=== PATIENT | female | born 1940 | race Caucasian/White ===

== ENCOUNTER 2018-10-07 13:29 | Emergency (ER) | payer OTHER, BC ==
[2018-10-07] MEDS ORDERED: IPRATROPIUM BROM 0.5MG/2.5ML ONE (14:36)
[2018-10-07] MEDS ORDERED: ALBUTEROL 2.5 MG/3 ML NEB SOL ONE (14:36)
--- NOTE | 2018-10-07 15:20 | RAD REPORT ---
EXAM DESCRIPTION: RAD - Chest Pa And Lat (2 Views) - 10/07/2018 2:26 pm CLINICAL HISTORY: Persistent cough COMPARISON: August 2016 TECHNIQUE: PA and lateral views of the chest were obtained. FINDINGS: The lungs are clear of a focal consolidation. There is underlying interstitial fibrotic ch karla present with lung markings fractionally increased over comparison. Severity of disease could mas k early interstitial edema or infiltrate. Heart size is normal and central vasculature is within no rmal limits. No pleural effusion or pneumothorax seen. No acute bony finding noted. No aortic abno rmality. IMPRESSION: No focal mass or consolidation. Prominent interstitial pattern increased slightly from an already prominent pattern. This could be pr ogressive fibrosis from 2017 or interstitial edema/infiltrate.
--- NOTE | 2018-10-07 16:12 | ER ---
Nurse's Notes [facility] Name: Aubrie Del Toro Age: 78 yrs Sex: Female : 1940 Arrival Date: 10/07/2018 Time: 13:29 Bed 13 Private MD: Eddie Solis V Diagnosis: Bronchitis, not specified as acute or chronic Presentation: 10/07 14:02 Presenting complaint: Patient states: cough for one week, not getting better, options ch thinks I have pneumonia. Transition of care: patient was not received from another setting of care. Onset of symptoms was September 30, 2018. Risk Assessment: Do you want to hurt yourself or someone else? Patient reports no desire to harm self or others. Initial Sepsis Screen: Does the patient meet any 2 criteria? No. Patient's initial sepsis screen is negative. Does the patient have a suspected source of infection? No. Patient's initial sepsis screen is negative. Care prior to arrival: None. 14:02 Method Of Arrival: Ambulatory 14:02 Acuity: [facility] 3 ch Triage Assessment: 14:04 General: Appears in no apparent distress. comfortable, Behavior is calm, cooperative, ch appropriate for age. Pain: Denies pain. Respiratory: Reports shortness of breath cough that is. Historical: - Allergies: 14:04 No Known Allergies; ch - PMHx: 14:04 Headaches; l eblow melanoma; neuropathy; bladder issues; ch - PSHx: 14:04 Tonsillectomy; Knee surgery; Hysterectomy; ch - Immunization history:: Adult Immunizations up to date, Flu vaccine is not up to date. - Social history:: Smoking status: Patient/guardian denies using tobacco, Patient/guardian denies using alcohol, street drugs. - Ebola Screening: : Patient negative for fever greater than or equal to 101.5 degrees Fahrenheit, and additional compatible Ebola Virus Disease symptoms Patient denies exposure to infectious person Patient denies travel to an Ebola-affected area in the 21 days before illness onset No symptoms or risks identified at this time. Screenin:05 Abuse screen: Denies threats or abuse. Nutritional screening: No deficits noted. rb1 Tuberculosis screening: No symptoms or risk factors identified. Fall Risk None identified. Assessment: 14:05 General: Appears uncomfortable, Behavior is calm, cooperative. Pain: Complains of pain rb1 in ribs Pain currently is 6 out of 10 on a pain scale. Aggravated by coughing. Neuro: Level of Consciousness is awake, alert, obeys commands, Oriented to person, place, time, situation. Cardiovascular: Capillary refill < 3 seconds is brisk in bilateral toes. Respiratory: Airway is patent Respiratory effort is even, unlabored, Respiratory pattern is regular, symmetrical. Respiratory: Reports cough that is dry. GI: No signs and/or symptoms were reported involving the gastrointestinal system. : No signs and/or symptoms were reported regarding the genitourinary system. Derm: Skin is pink, warm \T\ dry. Musculoskeletal: Range of motion: intact in all extremities. 14:25 Reassessment: Pt. is in x-ray. rb1 14:38 Reassessment: Called to request Flu swabs to be sent. rb1 15:00 Reassessment: Patient appears in no apparent distress at this time. Patient and/or rb1 family updated on plan of care and expected duration. Pain level reassessed. Patient is alert, oriented x 3, equal unlabored respirations, skin warm/dry/pink. Patient states symptoms have improved. 16:00 Reassessment: Patient appears in no apparent distress at this time. No changes from [facility] previously documented assessment. Daughter at bedside. Vital Signs: 14:04 BP 155 / 61; Pulse 58; Resp 18; Temp 98.4(O); Pulse Ox 97% on R/A; Weight 97.07 kg; ch Height 5 ft. 5 in. (165.10 cm); Pain 0/10; 15:00 BP 158 / 51; Pulse 57; Resp 18; Pulse Ox 96% on R/A; dh3 15:36 BP 152 / 44; Pulse 53; Resp 16; Pulse Ox 97% on R/A; dh3 16:00 BP 164 / 41; Pulse 51; Resp 17; Pulse Ox 95% on R/A; Pain 5/10; rb1 14:04 Body Mass Index 35.61 (97.07 kg, 165.10 cm) ED Course: 13:29 Patient arrived in ED. as 13:30 Eddie Solis MD is Private Physician. as 14:03 Triage completed. 14:04 Arm band placed on left wrist. Patient placed in an exam room. 14:05 Patient has correct armband on for positive identification. Bed in low position. Call rb1 light in reach. Side rails up X 1. Pulse ox on. NIBP on. 14:06 Therese Najera FNP-C is PHCP. kb 14:06 Brown Azul MD is Attending Physician. kb 14:22 Anastacia Ha, RN is Primary Nurse. rb1 14:25 Chest Pa And Lat (2 Views) XRAY In Process Unspecified. EDMS 16:10 Eddie Solis MD is Referral Physician. kb 16:26 No provider procedures requiring assistance completed. Patient did not have IV access rb1 during this emergency room visit. Administered Medications: 14:30 Drug: DuoNeb (3:1) (2.5 mg - 0.5 mg) 3 ml Route: Nebulizer; rb1 15:00 Follow up: Response: No adverse reaction; Marked relief of symptoms rb1 Outcome: 16:11 Discharge ordered by MD. kb 16:26 Discharged to home ambulatory, with family. rb1 16:26 Condition: stable 16:26 Discharge instructions given to patient, Instructed on discharge instructions, follow up and referral plans. medication usage, Demonstrated understanding of instructions, follow-up care, medications, Prescriptions given X 3. 16:28 Patient left the ED. rb1 Signatures: Dispatcher [employer] EDIL Therese Najera FNP-C FNP-Ckb Hammond, Christina, RN RN Marilyn Solano Rebecca, RN RN [facility] Divina Deshpande 3
--- NOTE | 2018-10-07 16:12 | EDPHYS ---
Physician Documentation [facility] Name: Aubrie Del Toro Age: 78 yrs Sex: Female : 1940 Arrival Date: 10/07/2018 Time: 13:29 Bed 13 Private MD: Eddie Solis V ED Physician Brown Azul HPI: 10/07 14:20 This 78 yrs old Female presents to ER via Ambulatory with complaints of kb Pneumonia. 14:20 The patient or guardian reports cough, that is intermittent, described as moderate, kb with no sputum, difficulty breathing. Onset: The symptoms/episode began/occurred 5 day(s) ago. Severity of symptoms: At their worst the symptoms were moderate, in the emergency department the symptoms are unchanged. Modifying factors: The symptoms are alleviated by nothing, the symptoms are aggravated by nothing. Associated signs and symptoms: The patient has no apparent associated signs or symptoms. The patient has not experienced similar symptoms in the past. The patient has been recently seen at an urgent care, just prior to arrival, for similar complaints, and was sent to the [facility] Emergency Department for further evaluation. Historical: - Allergies: 14:04 No Known Allergies; ch - PMHx: 14:04 Headaches; l eblow melanoma; neuropathy; bladder issues; ch - PSHx: 14:04 Tonsillectomy; Knee surgery; Hysterectomy; ch - Immunization history:: Adult Immunizations up to date, Flu vaccine is not up to date. - Social history:: Smoking status: Patient/guardian denies using tobacco, Patient/guardian denies using alcohol, street drugs. - Ebola Screening: : Patient negative for fever greater than or equal to 101.5 degrees Fahrenheit, and additional compatible Ebola Virus Disease symptoms Patient denies exposure to infectious person Patient denies travel to an Ebola-affected area in the 21 days before illness onset No symptoms or risks identified at this time. ROS: 14:19 Constitutional: Negative for fever, chills, and weight loss, Neck: Negative for injury, kb pain, and swelling, Cardiovascular: Negative for chest pain, palpitations, and edema, Abdomen/GI: Negative for abdominal pain, nausea, vomiting, diarrhea, and constipation, Back: Negative for injury and pain, MS/Extremity: Negative for injury and deformity, Skin: Negative for injury, rash, and discoloration, Neuro: Negative for headache, weakness, numbness, tingling, and seizure. 14:19 Respiratory: Positive for cough, shortness of breath, Negative for dyspnea on exertion, hemoptysis, orthopnea, pleurisy, wheezing. Exam: 14:19 Constitutional: This is a well developed, well nourished patient who is awake, alert, kb and in no acute distress. Head/Face: Normocephalic, atraumatic. ENT: Nares patent. No nasal discharge, no septal abnormalities noted. Tympanic membranes are normal and external auditory canals are clear. Oropharynx with no redness, swelling, or masses, exudates, or evidence of obstruction, uvula midline. Mucous membranes moist. Neck: Trachea midline, no thyromegaly or masses palpated, and no cervical lymphadenopathy. Supple, full range of motion without nuchal rigidity, or vertebral point tenderness. No Meningismus. Chest/axilla: Normal chest wall appearance and motion. Nontender with no deformity. No lesions are appreciated. Cardiovascular: Regular rate and rhythm with a normal S1 and S2. No gallops, murmurs, or rubs. Normal PMI, no JVD. No pulse deficits. Abdomen/GI: Soft, non-tender, with normal bowel sounds. No distension or tympany. No guarding or rebound. No evidence of tenderness throughout. Back: No spinal tenderness. No costovertebral tenderness. Full range of motion. Skin: Warm, dry with normal turgor. Normal color with no rashes, no lesions, and no evidence of cellulitis. MS/ Extremity: Pulses equal, no cyanosis. Neurovascular intact. Full, normal range of motion. Neuro: Awake and alert, GCS 15, oriented to person, place, time, and situation. Cranial nerves II-XII grossly intact. Motor strength 5/5 in all extremities. Sensory grossly intact. Cerebellar exam normal. Normal gait. 14:19 Respiratory: the patient does not display signs of respiratory distress, Respirations: normal, Breath sounds: wheezing: expiratory that is moderate, is scattered. Vital Signs: 14:04 BP 155 / 61; Pulse 58; Resp 18; Temp 98.4(O); Pulse Ox 97% on R/A; Weight 97.07 kg; ch Height 5 ft. 5 in. (165.10 cm); Pain 0/10; 15:00 BP 158 / 51; Pulse 57; Resp 18; Pulse Ox 96% on R/A; dh3 15:36 BP 152 / 44; Pulse 53; Resp 16; Pulse Ox 97% on R/A; dh3 16:00 BP 164 / 41; Pulse 51; Resp 17; Pulse Ox 95% on R/A; Pain 5/10; rb1 14:04 Body Mass Index 35.61 (97.07 kg, 165.10 cm) ch MDM: 14:06 Patient medically screened. kb 14:19 Data reviewed: vital signs, nurses notes. Data interpreted: Pulse oximetry: on room air kb is 97 %. Interpretation: normal. 16:09 Counseling: I had a detailed discussion with the patient and/or guardian regarding: the kb historical points, exam findings, and any diagnostic results supporting the discharge/admit diagnosis, lab results, radiology results, the need for outpatient follow up, a family practitioner, to return to the emergency department if symptoms worsen or persist or if there are any questions or concerns that arise at home. 10/07 14:06 Order name: Flu; Complete Time: 16:06 kb 10/07 14:06 Order name: Chest Pa And Lat (2 Views) XRAY; Complete Time: 15:23 kb Administered Medications: 14:30 Drug: DuoNeb (3:1) (2.5 mg - 0.5 mg) 3 ml Route: Nebulizer; rb1 15:00 Follow up: Response: No adverse reaction; Marked relief of symptoms rb1 Disposition: 10/07/18 16:11 Discharged to Home. Impression: Bronchitis, not specified as acute or chronic. - Condition is Stable. - Discharge Instructions: Acute Bronchitis, [id number]. - Prescriptions for Prednisone 20 mg Oral Tablet - take 1 tablet by ORAL route once daily for 5 days; 5 tablet. Zithromax Z- Virgil 250 mg Oral Tablet - take 1 tablet by ORAL route as directed for 5 days Day 1 - take two (2) tablets one time. Day 2, 3, 4 , 5 take one (1) tablet once daily.; 6 tablet. Albuterol Sulfate 90 mcg/actuation - inhale 1-2 puff by INHALATION route every 4-6 hours; 1 Inhaler. - Medication Reconciliation Form, Thank You Letter, Antibiotic Education, Prescription Opioid Use form. - Follow up: Emergency Department; When: As needed; Reason: Worsening of condition. Follow up: Eddie Solis MD; When: 2 - 3 days; Reason: Recheck today's complaints, Continuance of care, Re-evaluation by your physician. Addendum: 10/09/2018 09:24 Co-signature as Attending Physician, Brown Azul MD I agree with the assessment and c cunningham plan of care. Signatures: Dispatcher [employer] EDWV Therese Najera, COMPUTER TYPESETTER KEYLINER-C COMPUTER TYPESETTER KEYLINER-Rachelle Sutton, RN RN Brown Lawler MD MD cha Barber, Rebecca, RN RN rb1 Corrections: (The following items were deleted from the chart) 10/07 16:28 16:11 10/07/2018 16:11 Discharged to Home. Impression: Bronchitis, not specified as rb1 acute or chronic. Condition is Stable. Forms are Medication Reconciliation Form, Thank You Letter, Antibiotic Education, Prescription Opioid Use. Follow up: Emergency Department; When: As needed; Reason: Worsening of condition. Follow up: Eddie Solis; When: 2 - 3 days; Reason: Recheck today's complaints, Continuance of care, Re-evaluation by your physician. kb
[2018-10-07 16:32] VITALS: TEMP 98.4
[2018-10-07 16:35] VITALS: BP 164/41; O2SAT 95
== END 2018-10-07 16:28 | disposition home or self-care (01) ==
LOC: ER 13:29
DX: J40 Bronchitis, not specified as acute or chronic (principal)
CPT/HCPCS: 71046; 87804; 94640; 99284

== ENCOUNTER 2021-01-01 13:21 | Inpatient (IN) | payer OTHER, BC ==
--- OUTSIDE RECORDS SUMMARY | 2021-01-01 13:24 | XMS REPORT | Continuity of Care Document ---
:1940 Author Organization [facility] t Address [address] [place] [address] Care Team Providers Name Role Phone Tc LINN Primary Care Physician Unavailable SYSTEM, NOT IN Attending Clinician Unavailable IVANA Attending Clinician Unavailable Payers Payer Name Policy Type Policy Number Effective Date Expiration Date S ource [place] P[place] POS [id number] 2014 00:00:00 MEDICARE PART A [id number] 2004 AND B 00:00:00 Problems This patient has no known problems. Allergies, Adverse Reactions, Alerts Allergy Allergy Status Severity Reaction(s) Onset Inactive Treating Comm ents Source Name Type Date Date Clinician No Known DA Active U [facility] Allergie 3-29 Clear s 00:00: Collins 00 [facility] No Known DA Active U [facility] Drug 7-13 Clear Allergie 00:00: Collins s 00 [facility] Medications This patient has no known medications. Procedures This patient has no known procedures. Encounters Start End Encounter Admission Attending Care Care Encounter Source Date/Time Date/Time Type Type Clinicians Facility Department ID 2020-10-13 Outpatient TAYA CASH MDA [id number] 13:14:56 ADRIAN tidwell 2019-07-30 Outpatient [facility] 7500 12:25:32 [facility] 2020-10-03 2020-10-08 Outpatient JORDAN HEATH MDA MDA [id number] 09:19:28 08:21:37 THELMA tidwell 2020-10-03 2020-10-03 Outpatient JORDAN HEATH MDA [facility] [id number] 08:59:38 23:59:00 THELMA tidwell Results Test Description Test Time Test Comments Results Result Comments Source Novel Coronavirus 2018 Inhouse 2020-11-22 04:35:00 Test Item Value Reference Range Interpretation Comme nts Novel Coronavirus 2018 Negative Negative Posit [place] results are indicative of the Inhouse (test code = presenc e [id number] RNA, clinical COVNONPUI) correlation wit h patient historyand other diagnosti c information is necessary to de terminepatient infection status. Positiv e results do not rule outbacterial in fection or co-infection with other viru ses. Negative results do not preclude SA RS-CoV-2 infection andshould not b e used as the sole basis for patient man agementdecisions. Negative result s must be combined with otherclinical o bservations, patient history, and ep idemiologicalinformation. Detection of SA RS-CoV-2 RNA may be affected bysamp le collection methods, storage conditi ons, and/or stageof infection. Aletha l RNA mutations, vaccinations, a ntiviraltherapeutics, antibiotics, ch emotherapeutic orimmunosuppres shimon drugs have not been evaluated for e ffectson detection. Results are for the identification of SARS-CoV-2 RNA usingthe 12Society000 System under th e FDA Emergency UseAuthorizatio n. The testing is performed by lynnette lindrained in the procedures for the Lui M2000 moleculardiagno stic SARS-CoV-2 assay in vitro. BASIC METABOLIC [id number] 16:24:00 Test Item Value Reference Range Interpretation Comments SODIUM (test code = NA) 146 mEq/L 134-147 N POTASSIUM (test code = 4.3 mEq/L 3.4-5.0 N K) CHLORIDE (test code = 106 mEq/L 100-108 N CL) CARBON DIOXIDE (test 35 mEq/l 21-33 H code = CO2) ANION GAP (test code = 10 0-20 N GAP) GLUCOSE (test code = 85 mg/dL 70-110 N GLU) BLOOD UREA NITROGEN 21 mg/dL 7-18 H (test code = BUN) GLOMERULAR FILTRATION 43.1 70-80 L Units of measure = RATE (test code = GFR) ml/mi n/1.73 m2 CREATININE (test code = 1.2 mg/dL 0.6-1.3 N CREAT) CALCIUM (test code = 10.0 mg/dL 8.0-10.5 N CA) PROTHROMBIN [id number] 16:12:00 Test Item Value Reference Range Interpretation Comments PROTHROMBIN TIME 25.1 SECONDS 9.3-12.9 H PATIENT (test code = PTP) INTERNATIONAL NORMAL 2.3 0.8-1.2 H TARGET RATIO (test code = INR BY IN DICATION INR) Indication INR1. Prophyl axis of venous thrombos is 2.0 - 3. 0 (orthopedic kael emmie), Prophylaxis of venous thrombos is (other than hig h-risk surgery), Purnima tment of Deep Vein Thrombosis/Pulm onary Embolism, Preve ntion of systemic emb olism - Tissue heart va lves, Acute Myocardia l Infarction (to prevent systemic embo lism), Valvular heart disease, Atri al Fibrillation, Bileaflet mecha nical valve in aortic position.2. Mec hanical prosthetic valv es (high risk), 2.5 - 3.5 Presence of Lupus Anticoagu lant or Antiphospholi pid Antibodies, Pre vention of systemic e mbolism - Acute Myocard ial Infarction (t o prevent recurre nt infarct). CBC W/AUTO [id number] 16:05:00 Test Item Value Reference Range Interpretation Comments WHITE BLOOD CELL (test code = 9.8 x10 3/uL 4.5-11.0 N WBC) RED BLOOD CELL (test code = 3.46 x10 6/uL 3.54-5.02 L RBC) HEMOGLOBIN (test code = HGB) 10.7 g/dL 11.0-15.0 L HEMATOCRIT (test code = HCT) 34.6 % 33.0-45.0 N MEAN CELL VOLUME (test code = 100.0 fL 81.0-99.0 H MCV) MEAN CELL HGB (test code = MCH) 30.9 pg 27.0-33.0 N MEAN CELL HGB CONCETRATION 30.9 g/dL 33.0-37.0 L (test code = MCHC) RED CELL DISTRIBUTION WIDTH CV 13.8 % 11.5-14.5 N (test code = RDW) RED CELL DISTRIBUTION WIDTH SD 50.1 fL 37.0-54.0 N (test code = RDW-SD) PLATELET COUNT (test code = 169 x10 3/uL 150-400 N PLT) MEAN PLATELET VOLUME (test code 10.8 fL 7.0-9.0 H = MPV) NEUTROPHIL % (test code = NT%) 74.1 % 56.0-77.0 N IMMATURE GRANULOCYTE % (test 0.7 % 0.0-2.0 N code = IG%) LYMPHOCYTE % (test code = LY%) 12.7 % 14.0-32.0 L MONOCYTE % (test code = MO%) 7.0 % 4.8-9.0 N EOSINOPHIL % (test code = EO%) 5.0 % 0.3-3.7 H BASOPHIL % (test code = BA%) 0.5 % 0.0-2.0 N NUCLEATED RBC % (test code = 0.0 % 0-0 N NRBC%) NEUTROPHIL # (test code = NT#) 7.28 x10 3/uL 2.0-7.6 N IMMATURE GRANULOCYTE # (test 0.07 x10 3/uL 0.00-0.03 H code = IG#) LYMPHOCYTE # (test code = LY#) 1.25 x10 3/uL 1.0-3.8 N MONOCYTE # (test code = MO#) 0.69 x10 3/uL 0.1-0.8 N EOSINOPHIL # (test code = EO#) 0.49 x10 3/uL 0.0-0.2 H BASOPHIL # (test code = BA#) 0.05 x10 3/uL 0.0-0.2 N NUCLEATED RBC # (test code = 0.00 x10 3/uL 0.0-0.1 N NRBC#) MANUAL DIFF REQUIRED (test code NO = MDIFF) CBC W/AUTO [id number] 16:02:00 Test Item Value Reference Range Interpretation Comments WHITE BLOOD CELL (test code = x10 3/uL 4.5-11.0 WBC) RED BLOOD CELL (test code = RBC) x10 6/uL 3.54-5.02 HEMOGLOBIN (test code = HGB) g/dL 11.0-15.0 HEMATOCRIT (test code = HCT) 34.6 % 33.0-45.0 N MEAN CELL VOLUME (test code = fL 81.0-99.0 MCV) MEAN CELL HGB (test code = MCH) pg 27.0-33.0 MEAN CELL HGB CONCETRATION (test g/dL 33.0-37.0 code = MCHC) RED CELL DISTRIBUTION WIDTH CV % 11.5-14.5 (test code = RDW) PLATELET COUNT (test code = PLT) 169 x10 3/uL 150-400 N NEUTROPHIL % (test code = NT%) % 56.0-77.0 LYMPHOCYTE % (test code = LY%) % 14.0-32.0 NEUTROPHIL # (test code = NT#) x10 3/uL 2.0-7.6 LYMPHOCYTE # (test code = LY#) x10 3/uL 1.0-3.8 MANUAL DIFF REQUIRED (test code = MDIFF) - XR CHEST 1 [id number] 16:30:00 [facility] [place] [place] : 1940 Sex: F FAX: Eagle Sexton MD [phone] [place]: St: [facility] FAX: Ysabel Navarro NP [phone] Name: GRACIELA GARCIA [facility] : 1940 Age/S: 80/F [address] [place] [address] Blvd Unit #: [id number] Loc: [place] [address] Phys: Ysabel Santacruz NP Acct: [id number] Dis Date: Status: REG [facility] PHONE #: [phone] Exam Date: 10/29/2020 1514 FAX #: [phone] Reason: post watchman EXAMS: CPT CODE: [id number] XR CHEST 1 V 10925 EXAM: XR CHEST 1 VIEW DATE: 10/29/2020 3:00 PM : 1940; Age: 80 years y/o Female INDICATION: post watchman COMPARISON: December 27, 2020 TECHNIQUE: AP chest. IMPRESSION: Lines, tubes and hardware: Right shoulder arthroplasty is partially seen. Left axillary clips. Atrial appendage closure deviceis seen. Heart, mediastinum and lungs: Cardiomegaly with mild central venous congestion is seen. Small layering left pleural effusion with underlying airspace disease. Atherosclerotic changes are seen involving the aorta. SL: [id number] at 1630 Reported and signed by: Petra Rivera D.O. 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 Positiv e results do not rule out bacterial infection or co -infection with other viru ses. Negative result s do not preclude SARS-C oV-2 infection andsh ould not be used as the shae e basis for patient managementdecis ions. Negative result s must be combined with otherclinical observations, p atient history, and epidemiological information . Detection of SARS-CoV-2 RNA may be affe cted bysample collec tion methods, storag e conditions, and /or stageof infection. Aletha l RNA mutations, vacc inations, antiviraltherap eutics, antibiotics, chemotherapeuti c orimmunosuppres shimon drugs have not been e valuated for effectson d etection. Results are for the identification of SARS-CoV-2 RNA usingthe Lui M2000 Sy stem under the FDA Emergen cy UseAuthorizatio n. The testing is perf ormed by ebn alejandre in the procedures for the Audingo M2000 molecular diagnostic SARS-CoV-2 renata champion in vitro. - XR CHEST 2 [id number] 14:55:00 [facility] : 1940 Sex: F FAX: Eagle Sexton MD [phone] [place]: [place] [address]: PRE Name: GRACIELA GARCIA [facility] : 1940 Age/S: 80/F [address] [place] [address] Blvd Unit #: [id number] Loc: [place] [address] Phys: Eagle Osborn MD Acct: [id number] Dis Date: Status: PRE SD PHONE #: [phone] Exam Date: 10/27/2020 1424 FAX #: [phone] Reason: PRE-OP WATCHMAN EXAMS: CPT CODE: [id number] XR CHEST 2 V [id number] EXAM: PA and lateral chest. EXAM DATE: October 27, 2020 CLINICAL HISTORY: PRE-OP WATCHMAN COMPARISON: None Heart is prominent but difficult to assess secondary to moderate left-sided pleural effusion. The right lung is unremarkable.. The left upper lung is unremarkable.Orthopedic hardware noted in the right proximal humerus. Surgical clips identified in the leftaxillary region. IMPRESSION: Moderate left-sided pleural effusion. at 8226 Reported and signed by: Jesi Garcia M.D. CC: Ealge Osborn MD Technologist: RT Suad(R) Trnscrd Date/Time/By: 10/27/2020 (1777) : By: Kenneth Orig Print D/T: S: 10/27/2020 (5204) PAGE 1 Signed ReportBASIC METABOLIC PANEL 2020-10-27 14:35:00 Test Item Value Reference Range Interpretation Comments SODIUM (test code = NA) 143 mEq/L 134-147 N POTASSIUM (test code = 3.8 mEq/L 3.4-5.0 N K) CHLORIDE (test code = 104 mEq/L 100-108 N CL) CARBON DIOXIDE (test 32 mEq/l 21-33 N code = CO2) ANION GAP (test code = 11 0-20 N GAP) GLUCOSE (test code = 83 mg/dL 70-110 N GLU) BLOOD UREA NITROGEN 18 mg/dL 7-18 N (test code = BUN) GLOMERULAR FILTRATION 43.1 70-80 L Units of measure = RATE (test code = GFR) ml/mi n/1.73 m2 CREATININE (test code = 1.2 mg/dL 0.6-1.3 N CREAT) CALCIUM (test code = 9.3 mg/dL 8.0-10.5 N CA) [id number] 14:35:00 Test Item Value Reference Range Interpretation Comments PREALBUMIN (test code = PREALB) 18.9 mg/dL 16.0-40.0 N PROTHROMBIN [id number] 14:34:00 Test Item Value Reference Range Interpretation Comments PROTHROMBIN TIME 30.6 SECONDS 9.3-12.9 H PATIENT (test code = PTP) INTERNATIONAL NORMAL 2.8 0.8-1.2 H TARGET RATIO (test code = INR BY IN DICATION INR) Indication INR1. Prophyl axis of venous thrombos is 2.0 - 3. 0 (orthopedic kael emmie), Prophylaxis of venous thrombos is (other than hig h-risk surgery), Purnima tment of Deep Vein Thrombosis/Pulm onary Embolism, Preve ntion of systemic emb olism - Tissue heart va lves, Acute Myocardia l Infarction (to prevent systemic embo lism), Valvular heart disease, Atri al Fibrillation, Bileaflet mecha nical valve in aortic position.2. Mec hanical prosthetic valv es (high risk), 2.5 - 3.5 Presence of Lupus Anticoagu lant or Antiphospholi pid Antibodies, Pre vention of systemic e mbolism - Acute Myocard ial Infarction (t o prevent recurre nt infarct). CBC W/AUTO [id number] 14:19:00 Test Item Value Reference Range Interpretation Comments WHITE BLOOD CELL (test code = WBC) x10 3/uL 4.5-11.0 RED BLOOD CELL (test code = RBC) x10 6/uL 3.54-5.02 HEMOGLOBIN (test code = HGB) g/dL 11.0-15.0 HEMATOCRIT (test code = HCT) 33.3 % 33.0-45.0 N MEAN CELL VOLUME (test code = MCV) fL 81.0-99.0 MEAN CELL HGB (test code = MCH) pg 27.0-33.0 MEAN CELL HGB CONCETRATION (test g/dL 33.0-37.0 code = MCHC) RED CELL DISTRIBUTION WIDTH CV % 11.5-14.5 (test code = RDW) PLATELET COUNT (test code = PLT) x10 3/uL 150-400 NEUTROPHIL % (test code = NT%) % 56.0-77.0 LYMPHOCYTE % (test code = LY%) % 14.0-32.0 NEUTROPHIL # (test code = NT#) x10 3/uL 2.0-7.6 LYMPHOCYTE # (test code = LY#) x10 3/uL 1.0-3.8 MANUAL DIFF REQUIRED (test code = MDIFF) CBC W/AUTO [id number] 14:19:00 Test Item Value Reference Range Interpretation Comments WHITE BLOOD CELL (test code = 9.3 x10 3/uL 4.5-11.0 N WBC) RED BLOOD CELL (test code = 3.43 x10 6/uL 3.54-5.02 L RBC) HEMOGLOBIN (test code = HGB) 10.8 g/dL 11.0-15.0 L HEMATOCRIT (test code = HCT) 33.3 % 33.0-45.0 N MEAN CELL VOLUME (test code = 97.1 fL 81.0-99.0 N MCV) MEAN CELL HGB (test code = MCH) 31.5 pg 27.0-33.0 N MEAN CELL HGB CONCETRATION 32.4 g/dL 33.0-37.0 L (test code = MCHC) RED CELL DISTRIBUTION WIDTH CV 14.2 % 11.5-14.5 N (test code = RDW) RED CELL DISTRIBUTION WIDTH SD 49.7 fL 37.0-54.0 N (test code = RDW-SD) PLATELET COUNT (test code = 131 x10 3/uL 150-400 L PLT) MEAN PLATELET VOLUME (test code 11.0 fL 7.0-9.0 H = MPV) NEUTROPHIL % (test code = NT%) 72.6 % 56.0-77.0 N IMMATURE GRANULOCYTE % (test 0.3 % 0.0-2.0 N code = IG%) LYMPHOCYTE % (test code = LY%) 11.6 % 14.0-32.0 L MONOCYTE % (test code = MO%) 6.3 % 4.8-9.0 N EOSINOPHIL % (test code = EO%) 8.7 % 0.3-3.7 H BASOPHIL % (test code = BA%) 0.5 % 0.0-2.0 N NUCLEATED RBC % (test code = 0.0 % 0-0 N NRBC%) NEUTROPHIL # (test code = NT#) 6.73 x10 3/uL 2.0-7.6 N IMMATURE GRANULOCYTE # (test 0.03 x10 3/uL 0.00-0.03 N code = IG#) LYMPHOCYTE # (test code = LY#) 1.08 x10 3/uL 1.0-3.8 N MONOCYTE # (test code = MO#) 0.58 x10 3/uL 0.1-0.8 N EOSINOPHIL # (test code = EO#) 0.81 x10 3/uL 0.0-0.2 H BASOPHIL # (test code = BA#) 0.05 x10 3/uL 0.0-0.2 N NUCLEATED RBC # (test code = 0.00 x10 3/uL 0.0-0.1 N NRBC#) MANUAL DIFF REQUIRED (test code NO = MDIFF) BASIC METABOLIC [id number] 07:01:00 Test Item Value Reference Range Interpretation Comments SODIUM (test code = 140 mmol/L 136-145 N NA) POTASSIUM (test code 4.5 mmol/L 3.5-5.1 N = K) CHLORIDE (test code = 102.0 mmol/L 98-107 N CL) CARBON DIOXIDE (test 29.6 mmol/L 21-32 N code = CO2) GLUCOSE (test code = 156 mg/dL 70-110 H GLU) BLOOD UREA NITROGEN 62 mg/dL 7-18 HH VERIFIED BY REPEAT (test code = BUN) ANALYSIS.C RITICAL VALUE CALLED TO ANDRÉS SOTOMAYOR/MARGARET GUERRAREAD BACK & CONFIRMED? YBY Y.LAB.MAV 02/07 0701 GLOMERULAR FILTRATION 28.4 >60 Unit o f measure: RATE (test code = mL/min/1.7 3 GFR) [id number] Range:Healthy A dults >90 mL/min/1.73 m2 For Chronic Kidney Disease: St age II Mild Dec rease in GFR 6 0-90 Stage III Moderate Decrea se in GFR 30-59 Stage IV Se floyd Decrease in GFR 15-29 Stage V Kidney Failur e <15 CREATININE (test code 1.73 mg/dL 0.55-1.30 H = CREAT) CALCIUM (test code = 8.2 mg/dL 8.2-10.1 N CA) HGB [id number] 05:43:00 Test Item Value Reference Range Interpretation Comments HEMOGLOBIN (test code = HGB) 9.0 g/dL 12-16 L HEMATOCRIT (test code = HCT) 27.7 % 37-47 L URINALYSIS [id number] 14:52:00 Test Item Value Reference Range Interpretation Comments UA COLOR (test code = YELLOW YELLOW COLU) UA APPEARANCE (test CLEAR CLEAR code = APPU) UA GLUCOSE DIPSTICK NEGATIVE NEGATIVE (test code = DGLUU) UA BILIRUBIN DIPSTICK NEGATIVE NEGATIVE (test code = BILU) UA KETONE DIPSTICK NEGATIVE mg/dL NEG (test code = KETU) UA SPECIFIC GRAVITY 1.010 1.003-1.035 (test code = SGU) UA BLOOD DIPSTICK NEGATIVE NEGATIVE (test code = ARNIE) UA PH DIPSTICK (test >6.5 >=9.0VE RIFIED BY code = LOCO) REPEAT ANALYSIS . UA PROTEIN DIPSTICK NEGATIVE mg/dL NEG (test code = PROU) UA UROBILINIOGEN 0.2 mg/dL NORM DIPSTICK (test code = URO) UA NITRITE DIPSTICK NEGATIVE NEG (test code = ZORA) UA LEUKOCYTE ESTERASE NEGATIVE NEGATIVE DIPSTICK (test code = LEUU) UA WBC (test code = <5 /HPF 0-2 WBCU) UA RBC (test code = 0-2 /HPF 0-2 RBCU) UA EPITHELIAL CELLS RARE /HPF 0-2 (test code = EPIU) UA BACTERIA (test code FEW /HPF NONE = BACU) COMPREHENSIVE METABOLIC [id number] 13:30:00 Test Item Value Reference Range Interpretation Comments SODIUM (test code = 140 mmol/L 136-145 N NA) POTASSIUM (test code = 5.0 mmol/L 3.5-5.1 N K) CHLORIDE (test code = 101.0 mmol/L 98-107 N CL) CARBON DIOXIDE (test 33.8 mmol/L 21-32 H code = CO2) GLUCOSE (test code = 85 mg/dL 70-110 N GLU) BLOOD UREA NITROGEN 32 mg/dL 7-18 H (test code = BUN) GLOMERULAR FILTRATION 27.7 >60 Unit o f measure: RATE (test code = GFR) mL/mi n/1.73 [id number] Range:Healthy Adults >90 mL/min/1.73 m2 For Chronic Kidney Disease: St age II Mild Decrease in GFR 60-90 St age III Moderate Decrease in GFR 30-59 Stage IV Severe Decre ase in GFR 15- 29 Stage V Kidney Failure <15 CREATININE (test code 1.77 mg/dL 0.55-1.30 H = CREAT) TOTAL PROTEIN (test 6.2 g/dL 6.4-8.2 L code = PROT) ALBUMIN (test code = 3.7 g/dL 3.4-5.0 N ALB) GLOBULIN (test code = 2.5 g/dL 2.2-4.2 N GLOB) ALBUMIN/GLOBULIN RATIO 1.5 0.7-2.0 N (test code = A/G) CALCIUM (test code = 8.9 mg/dL 8.2-10.1 N CA) BILIRUBIN TOTAL (test 0.59 mg/dL 0.2-1.00 N code = BILT) SGOT/AST (test code = 16.0 U/L 15-37 N AST) SGPT/ALT (test code = 19.0 U/L 12-78 N Please note new ALT) normal range. ALKALINE PHOSPHATASE 100 U/L 46-116 N TOTAL (test code = ALKP) PROTHROMBIN [id number] 13:30:00 Test Item Value Reference Range Interpretation Comments PROTHROMBIN TIME 13.2 secs 10.1-12.5 H PATIENT (test code = PTP) INTERNATIONAL NORMAL 1.17 <2.0 RECOMME NDED THERAPEUTIC RATIO (test code = RANGE FOR ORAL INR) ANTICOAGULANTTR EATMENT: CONDI TION INRProphylaxis of venous thrombos is in 2.0 - 3.0 high-risk medic al or surgical patientsTreatme nt of venous thrombos is 2.0 - 3.0Prevention o f embolism 2.0 - 3.0Prevention o f recurrent embol ism, or 3.0 - 4. 5 patients with mechanical pros thetic intravascular v hoang IS PATIENT ON ANTICOAGULANTS ? YLIST ANTICOAGULANT/ANTI PLT MEDICATION : AspirinHas Lab been notified if Patient is on Heparin Drip? NOIf Yes, order CBC, OCCULT BLOOD, PT every other day NTHROMBOPLASTIN TIME [id number] 13:30:00 Test Item Value Reference Range Interpretation Comments PTT ACTIVATED (test code = APTT) 34.3 secs 24.9-37.0 N IS PATIENT ON ANTICOAGULANTS ? YLIST ANTICOAGULANT/ANTI PLT MEDICATION : AspirinHas Lab been notified if Patient is on Heparin Drip? NOIf Yes, order CBC, OCCULT BLOOD, PT every other day NCBC W/AUTO [id number] 13:12:00 Test Item Value Reference Range Interpretation Comments WHITE BLOOD CELL (test code = WBC) 6.1 K/mm3 5.8-11.0 N RED BLOOD CELL (test code = RBC) 3.85 M/mm3 4.2-5.4 L HEMOGLOBIN (test code = HGB) 10.7 g/dL 12-16 L HEMATOCRIT (test code = HCT) 33.6 % 37-47 L MEAN CELL VOLUME (test code = MCV) 87 fL 80-98 N MEAN CELL HGB (test code = MCH) 27.8 pg 27-34 N MEAN CELL HGB CONCENTRATION (test 31.8 g/dL 30.8-34.1 N code = MCHC) RED CELL DISTRIBUTION WIDTH (test 14.6 % 11-16 N code = RDW) PLT (test code = PLT) 187 K/mm3 130-400 N MEAN PLATELET VOLUME (test code = 11.4 fL 8.9-12.1 N MPV) NEUTROPHIL % (test code = NT%) 64.9 % 45-70 N LYMPHOCYTE % (test code = LY%) 21.7 % 20-40 N MONOCYTE % (test code = MO%) 10.3 % 3-10 H EOSINOPHIL % (test code = EO%) 2.6 % 1-5 N BASOPHIL % (test code = BA%) 0.5 % 0.0-1.1 N NEUTROPHIL # (test code = NT#) 3.98 K/mm3 2.00-7.50 N LYMPHOCYTE # (test code = LY#) 1.33 K/mm3 1.50-4.00 L MONOCYTE # (test code = MO#) 0.63 K/mm3 0.2-0.8 N EOSINOPHIL # (test code = EO#) 0.16 K/mm3 0.04-0.4 N BASOPHIL # (test code = BA#) 0.03 K/mm3 0.02-0.10 N MANUAL DIFF REQUIRED (test code = NO MANUAL DIFF MDIFF) NUCLEATED RED BLOOD CELL (test 0 % 0-0 N code = NRBC)
[2021-01-01 14:09] LABS: Absolute Lymphocytes (CBC) 0.7 K/uL (0.7-4.9); Basophils % 0.5 % (0-1.3); Hematocrit 32.2 % (36.0-45.0); Lymphocytes % 8.6 % (15.3-44.8); MPV 10.4 fL (7.6-11.3); RBC Red Blood Cell Count 3.52 M/uL (3.86-4.86)
[2021-01-01 14:26] LABS: Protime INR 1.16
[2021-01-01 14:32] LABS: ALT/SGPT 18 U/L (12-78); AST/SGOT 15 U/L (15-37); Albumin 3.4 g/dL (3.4-5.0); Alkaline Phosphatase 119 U/L (45-117); BUN Blood Urea Nitrogen 35 mg/dL (7-18); Bicarbonate 31 mmol/L (21-32); Bilirubin Direct 0.2 mg/dL (0-0.2); Bilirubin Total 0.6 mg/dL (0.2-1.0); Glucose Level 90 mg/dL (74-106); Magnesium 2.5 mg/dL (1.8-2.4); NT PRO-BNP 8798 pg/mL (<450); Protein, Total 6.6 g/dL (6.4-8.2); Sodium Level 142 mmol/L (136-145); Troponin (Emerg Dept Use Only) < 0.02 ng/mL (0.0-0.045)
--- NOTE | 2021-01-01 14:43 | RAD REPORT ---
EXAM DESCRIPTION: RAD - Chest Single View - 01/01/2021 2:24 pm CLINICAL HISTORY: SOB Chest pain. COMPARISON: Chest Pa And Lat (2 Views) dated 10/07/2018; Abdomen 1 View (KUB) dated 10/18/2016; Chest P a And Lat (2 Views) dated 08/10/2016; Abdomen 1 View (KUB) dated 08/10/2016; 3D SCR YSABEL BILAT W/CAD mariza ed 01/15/2020; Follow Up Breast Axilla Comp dated 02/07/2020 FINDINGS: Portable technique limits examination quality. Mild interstitial pulmonary edema is seen. Moderate left pleural effusion. Moderate left pleural effu kulwinder.Right humeral arthroplasty. IMPRESSION: Moderate CHF pattern.
[2021-01-01] MEDS ORDERED: FUROSEMIDE 40 MG/4 ML VIAL ONE (15:27)
--- NOTE | 2021-01-01 15:44 | EDPHYS ---
Physician Documentation [facility] Name: Aubrie Del Toro Age: 80 yrs Sex: Female : 1940 Arrival Date: 01/01/2021 Time: 13:23 Bed 19 Private MD: Eddie Solis V; Raslan, Saleem ED Physician Naldo Belcher HPI: 01/01 13:50 This 80 yrs old Female presents to ER via Wheelchair with complaints of cp Shortness Of Breath, afib. 13:50 The patient has shortness of breath with light activity. Onset: The symptoms/episode cp began/occurred 2 week(s) ago. Duration: The symptoms are continuous, and are steadily getting worse. Associated signs and symptoms: Pertinent negatives: chest pain, productive cough, diaphoresis, fever. Severity of symptoms: in the emergency department the symptoms are unchanged despite home interventions. 13:50 The patient has been recently seen by a physician: Dr. Osborn earlier today, with cp similar presenting complaints, and was sent to the [facility] Emergency Department for further evaluation. Historical: - Allergies: 13:38 No Known Allergies; jl7 - Home Meds: 13:38 Plavix 75 mg Oral tab 1 tab once daily [Active]; Xarelto 20 mg oral tab 1 tab once jl7 daily [Active]; Lasix 40 mg Oral tab 1 tab once daily [Active]; doxazosin 4 mg oral tab [Active]; carvedilol 12.5 mg oral tab 1 tab 2 times per day [Active]; metoprolol tartrate 50 mg Oral tab [Active]; - PMHx: 13:38 bladder issues; Headaches; l eblow melanoma; neuropathy; atri; lymphedema; jl7 Hypothyroidism; Hypertension; GERD; Cataracts; - PSHx: 13:38 Hysterectomy; Tonsillectomy; Knee surgery; Carpal Tunnel Repair; jl7 - Immunization history:: Adult Immunizations up to date, J\T\J. - Social history:: Smoking status: Patient denies any tobacco usage or history of. ROS: 13:53 Eyes: Negative for injury, pain, redness, and discharge. cp 13:53 Constitutional: Negative for body aches, chills, fever, poor PO intake. 13:53 Cardiovascular: Positive for edema, Negative for chest pain, palpitations. 13:53 Respiratory: Positive for shortness of breath, on exertion. Negative for cough, wheezing. 13:53 Abdomen/GI: Negative for abdominal pain, nausea, vomiting, and diarrhea. 13:53 Neuro: Negative for altered mental status, dizziness, headache, syncope, weakness. cp 13:53 All other systems are negative. cp Exam: 13:53 ECG was reviewed by the Attending Physician. cp 13:57 Constitutional: The patient appears in no acute distress, alert, awake, cp non-diaphoretic, non-toxic, well developed, well nourished. 13:57 Head/Face: Normocephalic, atraumatic. cp 13:57 Eyes: Periorbital structures: appear normal, Conjunctiva: normal, no exudate, no injection, Lids and lashes: appear normal, bilaterally. 13:57 ENT: External ear(s): are unremarkable, Nose: is normal, Mouth: Lips: moist, Oral mucosa: moist, Posterior pharynx: Airway: no evidence of obstruction, patent. 13:57 Chest/axilla: Inspection: normal. 13:57 Cardiovascular: Rate: normal, Rhythm: regular, JVD: is not appreciated. 13:57 Respiratory: the patient does not display signs of respiratory distress, Respirations: labored breathing, that is mild, intercostal retractions, are absent, Breath sounds: decreased breath sounds, that are moderate, are heard in the left posterior lower lobe, stridor, is not appreciated, wheezing: is not appreciated. 13:57 Abdomen/GI: Exam negative for discomfort, distension, guarding, Inspection: abdomen appears normal. 13:57 Back: pain, is absent, ROM is normal. 13:57 Skin: no rash present. 13:57 Neuro: Orientation: to person, place \T\ time. Mentation: is normal, Motor: moves all fours, strength is normal. Vital Signs: 13:31 BP 124 / 78; Pulse 78; Resp 19; Temp 97.6; Pulse Ox 94% on R/A; Weight 97.52 kg; Height jl7 5 ft. 6 in. (167.64 cm); Pain 0/10; 14:30 BP 125 / 75; Pulse 87; Resp 19; Pulse Ox 93% ; rb3 15:18 BP 128 / 72; Pulse 82; Resp 19; Pulse Ox 97% on 2 lpm NC; Pain 0/10; rb3 16:15 BP 122 / 65; Pulse 87; Resp 19; Pulse Ox 100% ; rb3 17:15 BP 121 / 75; Pulse 89; Resp 18; Pulse Ox 99% ; rb3 18:15 BP 118 / 64; Pulse 83; Resp 19; Pulse Ox 98% ; rb3 20:20 BP 134 / 65; Pulse 80; Resp 18; Temp 97.8; Pulse Ox 99% on R/A; ea 13:31 Body Mass Index 34.70 (97.52 kg, 167.64 cm) jl7 MDM: 13:44 Patient medically screened. cp 15:24 Data reviewed: vital signs, nurses notes, lab test result(s), EKG, radiologic studies, cp plain films. Test interpretation: by ED physician or midlevel provider: ECG, plain radiologic studies. Physician consultation: Fior Mathew MD was contacted at 15:25, regarding admission, to the telemetry unit. 01/01 13:45 Order name: Basic Metabolic Panel; Complete Time: 14:47 cp 01/01 14:48 Interpretation: Normal except: BUN 35; CRE 1.42; GFR 36. cp 01/01 13:45 Order name: CBC with Diff; Complete Time: 14:30 cp 01/01 14:30 Interpretation: Normal except: RBC 3.52; HGB 10.6; HCT 32.2; MCV 91.3; PETER% 78.4; LYM% cp 8.6; EOSINOPHIL % 4.8. 01/01 13:45 Order name: LFT's; Complete Time: 14:47 cp 01/01 13:45 Order name: Magnesium; Complete Time: 14:47 cp 01/01 13:45 Order name: NT PRO-BNP; Complete Time: 14:47 cp 01/01 14:48 Interpretation: Abnormal: NT PRO-BNP 8798. cp 01/01 13:45 Order name: PT-INR; Complete Time: 14:47 cp 01/01 13:45 Order name: Troponin (emerg Dept Use Only); Complete Time: 14:47 cp 01/01 13:45 Order name: XRAY Chest (1 view); Complete Time: 14:47 cp 01/01 13:45 Order name: EKG; Complete Time: 13:46 cp 01/01 15:57 Order name: Echo with Doppler EDNJ 01/01 15:58 Order name: Thoracentesis w/ US Guide EDNJ 01/01 17:29 Order name: SARS-COV-2 RT PCR EDNJ 01/01 13:45 Order name: Cardiac monitoring; Complete Time: 14:00 cp 01/01 13:45 Order name: EKG - Nurse/Tech; Complete Time: 14:03 cp 01/01 13:45 Order name: IV Saline Lock; Complete Time: 14:00 cp 01/01 13:45 Order name: Labs collected and sent; Complete Time: 14:00 cp 01/01 13:45 Order name: O2 Per Protocol; Complete Time: 14:00 cp 01/01 13:45 Order name: O2 Sat Monitoring; Complete Time: 14:00 cp 01/01 15:57 Order name: CONS Physician Consult EDNJ 01/01 15:57 Order name: CONS Physician Consult EDNJ EC:53 Rate is 102 beats/min. Rhythm is irregular. QRS interval is normal. QT interval is cp normal. Interpreted by me. Reviewed by me. Administered Medications: 18:27 Not Given (Physician Discretion): Lasix (furosemide) 40 mg IVP once; give over 2 minutescp Disposition: 01/02 07:50 Co-signature as Attending Physician, Naldo Belcher MD I agree with the assessment and kdr plan of care. Disposition: 01/01/21 15:43 Hospitalization ordered by Fior Mathew for Inpatient Admission. Preliminary diagnosis are Pleural effusion, not elsewhere classified, Unspecified combined systolic (congestive) and diastolic (congestive) heart failure, Dyspnea, unspecified. - Bed requested for Telemetry/MedSurg (Inpatient). - Status is Inpatient Admission. ea - Condition is Stable. - Problem is new. - Symptoms have improved. Signatures: Dispatcher [employer] EDNJ Macey Tate Martha, RN RN mw Rittger, Kevin, MD MD kdr Page, Corey, PA PA cp Leal, Jahala, RN RN jl7 Nataliya Vu RN RN ea Corrections: (The following items were deleted from the chart) 01/01 14:15 12/31 13:53 Constitutional: Negative for body aches, chills, fever, poor PO intake, cp cp 01/01 14:15 06 13:53 Cardiovascular: Positive for edema, Negative for chest pain, palpitations, cp cp 01/01 14:15 12/31 13:53 Eyes: Negative for injury, pain, redness, and discharge, cp cp 01/01 14:15 12/31 13:53 Respiratory: Positive for shortness of breath, on exertion. Negative for cp cough, wheezing, cp 01/01 14:15 06 13:53 Abdomen/GI: Negative for abdominal pain, nausea, vomiting, and diarrhea, cp cp 01/01 16:29 14:33 CORONAVIRUS+MR.LAB.BRZ ordered. EDMS EDMS 18:50 15:43 Hospitalization Ordered by Fior Mathew MD for Inpatient Admission. Preliminary bd diagnosis is Pleural effusion, not elsewhere classified; Unspecified combined systolic (congestive) and diastolic (congestive) heart failure; Dyspnea, unspecified. Bed requested for Telemetry/MedSurg (Inpatient). Status is Inpatient Admission. Condition is Stable. Problem is new. Symptoms have improved. cp 19:38 18:50 01/01/2021 15:43 Hospitalization Ordered by Fior Mathew MD for Inpatient mw Admission. Preliminary diagnosis is Pleural effusion, not elsewhere classified; Unspecified combined systolic (congestive) and diastolic (congestive) heart failure; Dyspnea, unspecified. Bed requested for [facility] ER HOLD. Status is Inpatient Admission. Condition is Stable. Problem is new. Symptoms have improved. bd 20:21 19:38 01/01/2021 15:43 Hospitalization Ordered by Fior Mathew MD for Inpatient ea Admission. Preliminary diagnosis is Pleural effusion, not elsewhere classified; Unspecified combined systolic (congestive) and diastolic (congestive) heart failure; Dyspnea, unspecified. Bed requested for Telemetry/MedSurg (Inpatient). Status is Inpatient Admission. Condition is Stable. Problem is new. Symptoms have improved. mw
--- NOTE | 2021-01-01 15:44 | ER ---
Nurse's Notes [facility] Name: Aubrie Del Toro Age: 80 yrs Sex: Female : 1940 Arrival Date: 01/01/2021 Time: 13:23 Bed 19 Private MD: Eddie Solis V; Raslan, Saleem Diagnosis: Pleural effusion, not elsewhere classified;Unspecified combined systolic (congestive) and diastolic (congestive) heart failure;Dyspnea, unspecified Presentation: 01/01 13:31 Chief complaint: Patient states: SOB and fatigue x 2 weeks, sent by Dr. Osborn. jl7 Coronavirus screen: Client denies travel out of the [place] in the last 14 days. At this time, the client does not indicate any symptoms associated with coronavirus-19. Ebola Screen: No symptoms or risks identified at this time. Initial Sepsis Screen: Does the patient meet any 2 criteria? No. Patient's initial sepsis screen is negative. Does the patient have a suspected source of infection? No. Patient's initial sepsis screen is negative. Risk Assessment: Do you want to hurt yourself or someone else? Patient reports no desire to harm self or others. Onset of symptoms is unknown. Care prior to arrival: None. 13:31 Method Of Arrival: Wheelchair [facility] 13:31 Acuity: [facility] 3 jl7 Historical: - Allergies: 13:38 No Known Allergies; jl7 - Home Meds: 13:38 Plavix 75 mg Oral tab 1 tab once daily [Active]; Xarelto 20 mg oral tab 1 tab once jl7 daily [Active]; Lasix 40 mg Oral tab 1 tab once daily [Active]; doxazosin 4 mg oral tab [Active]; carvedilol 12.5 mg oral tab 1 tab 2 times per day [Active]; metoprolol tartrate 50 mg Oral tab [Active]; - PMHx: 13:38 bladder issues; Headaches; l eblow melanoma; neuropathy; atri; lymphedema; jl7 Hypothyroidism; Hypertension; GERD; Cataracts; - PSHx: 13:38 Hysterectomy; Tonsillectomy; Knee surgery; Carpal Tunnel Repair; jl7 - Immunization history:: Adult Immunizations up to date, J\T\J. - Social history:: Smoking status: Patient denies any tobacco usage or history of. Screenin:40 Abuse screen: Denies threats or abuse. Nutritional screening: No deficits noted. rb3 Tuberculosis screening: No symptoms or risk factors identified. Fall Risk None identified. Assessment: 13:40 General: Appears in no apparent distress. Behavior is calm, cooperative, Reports rb3 fatigue for. Neuro: Level of Consciousness is awake, alert, obeys commands, Oriented to person, place, time. Cardiovascular: Patient's skin is warm and dry. Respiratory: Reports shortness of breath Airway is patent Respiratory effort is even, unlabored, Respiratory pattern is regular, symmetrical. 13:40 Pain: Denies pain. Cardiovascular: Rhythm is atrial fibrillation. GI: No signs and/or rb3 symptoms were reported involving the gastrointestinal system. : No signs and/or symptoms were reported regarding the genitourinary system. 14:40 Reassessment: Patient appears in no apparent distress at this time. No changes from rb3 previously documented assessment. 15:03 Reassessment: Pt. ambulated to the restroom, felt SOB upon returning to the room. rb3 Administered O2 2 L NC. 16:00 Reassessment: Patient appears in no apparent distress at this time. Patient and/or rb3 family updated on plan of care and expected duration. Pain level reassessed. Patient is alert, oriented x 3, equal unlabored respirations, skin warm/dry/pink. Patient denies pain at this time. 17:00 Reassessment: Patient appears in no apparent distress at this time. No changes from rb3 previously documented assessment. 18:00 Reassessment: Patient appears in no apparent distress at this time. Patient and/or rb3 family updated on plan of care and expected duration. Pain level reassessed. Patient is alert, oriented x 3, equal unlabored respirations, skin warm/dry/pink. Vital Signs: 13:31 BP 124 / 78; Pulse 78; Resp 19; Temp 97.6; Pulse Ox 94% on R/A; Weight 97.52 kg; Height jl7 5 ft. 6 in. (167.64 cm); Pain 0/10; 14:30 BP 125 / 75; Pulse 87; Resp 19; Pulse Ox 93% ; rb3 15:18 BP 128 / 72; Pulse 82; Resp 19; Pulse Ox 97% on 2 lpm NC; Pain 0/10; rb3 16:15 BP 122 / 65; Pulse 87; Resp 19; Pulse Ox 100% ; rb3 17:15 BP 121 / 75; Pulse 89; Resp 18; Pulse Ox 99% ; rb3 18:15 BP 118 / 64; Pulse 83; Resp 19; Pulse Ox 98% ; rb3 20:20 BP 134 / 65; Pulse 80; Resp 18; Temp 97.8; Pulse Ox 99% on R/A; ea 13:31 Body Mass Index 34.70 (97.52 kg, 167.64 cm) jl7 ED Course: 13:23 Patient arrived in ED. as 13:25 Eddie Solis MD is Private Physician. as 13:25 Eagle Osborn MD is Private Physician. as 13:33 Triage completed. jl7 13:38 Arm band placed on right wrist. jl7 13:39 Anastacia Ha, DARIELA is Primary Nurse. rb3 13:40 Brown Hackett PA is PHCP. cp 13:40 Patient has correct armband on for positive identification. Bed in low position. Call rb3 light in reach. Side rails up X 1. environmental monitoring specialist on. Pulse ox on. NIBP on. Warm blanket given. 13:41 Naldo Belcher MD is Attending Physician. cp 13:50 EKG done, by ED staff, reviewed by Brown MICHAELS. mt 14:01 Inserted saline lock: 20 gauge in right antecubital area, using aseptic technique. mt Blood collected. 14:24 XRAY Chest (1 view) In Process Unspecified. EDMS 15:42 Fior Mathew MD is Hospitalizing Provider. cp 19:33 Warm blanket given. ap3 20:19 No provider procedures requiring assistance completed. Patient admitted, IV remains in ea place. Administered Medications: 18:27 Not Given (Physician Discretion): Lasix (furosemide) 40 mg IVP once; give over 2 minutescp Outcome: 15:43 Decision to Hospitalize by Provider. cp 20:19 Admitted to Med/surg accompanied by nurse, room 225, Report called to Receiving nurse ea on second floor 20:19 Condition: stable 20:19 Instructed on the need for admit, Demonstrated understanding of instructions. 20:21 Patient left the ED. ea Signatures: Dispatcher [employer] EDMS Marilyn Mccurdy as Brown Hackett PA PA cp Ashwini Fatima RN RN jl7 Lorene Santos mt, Elena, RN RN ea Akosua Cheng, RN RN ap3 Anastacia Ha, RN RN rb3
[2021-01-01] MEDS ORDERED: ONDANSETRON 4 MG/2 ML VIAL IV PRN (15:53)
[2021-01-01] MEDS: ENOXAPARIN 40 MG/0.4 ML SQ SCH (17:00)
[2021-01-01 20:50] VITALS: BMI 34.3
[2021-01-01] MEDS: carvediloL 12.5 MG TAB PO SCH (21:00)
[2021-01-01] MEDS ORDERED: HOME MED 1 EA UNK (Clonidine Hcl [Catapres*] 0.2 MG Tablet) PO SCH (21:00)
[2021-01-01] MEDS: cloNIDine HCL 0.1 MG TAB PO SCH (21:17)
[2021-01-01] MEDS: FUROSEMIDE 20 MG/ 2ML VIAL IV SCH (21:17)
[2021-01-01] MEDS: TAMSULOSIN 0.4 MG SR CAP PO SCH (21:18)
[2021-01-02] MEDS: FUROSEMIDE 20 MG/ 2ML VIAL IV SCH ×2 (02:17→10:56)
[2021-01-02] MEDS: ACETAMINOPHEN 500 MG TAB PO PRN ×2 (03:05→18:17)
[2021-01-02] MEDS ORDERED: MORPHINE 2 MG/ML SYR IV ONE (03:17)
[2021-01-02] MEDS ORDERED: NITROGLYCERIN 0.4 MG/TAB SL ONE ×2 (03:18→03:41)
[2021-01-02] MEDS ORDERED: MORPHINE 2 MG/ML SYR ONE (03:40)
[2021-01-02] MEDS ORDERED: ASPIRIN 81 MG CHEWABLE TABLET PO ONE (03:40)
[2021-01-02] MEDS ORDERED: ASPIRIN 81 MG CHEWABLE TABLET ONE (04:02)
[2021-01-02] MEDS ORDERED: FUROSEMIDE 20 MG/ 2ML VIAL IV ONE (04:14)
[2021-01-02 04:16] LABS: Arterial Blood Carboxyhemoglob 1.4 % (0-1.5); Blood Gas Oxyhemoglobin 89.3 % (94-97); Blood O2 Saturation 91.3 % (92-98.5)
[2021-01-02 06:19] LABS: Absolute Lymphocytes (CBC) 0.4 K/uL (0.7-4.9); Basophils % 0.1 % (0-1.3); Hematocrit 31.5 % (36.0-45.0); MPV 10.5 fL (7.6-11.3); RBC Red Blood Cell Count 3.48 M/uL (3.86-4.86)
[2021-01-02 06:23] LABS: ALT/SGPT 15 U/L (12-78); AST/SGOT 13 U/L (15-37); Albumin 3.2 g/dL (3.4-5.0); Alkaline Phosphatase 113 U/L (45-117); BUN Blood Urea Nitrogen 38 mg/dL (7-18); Bicarbonate 32 mmol/L (21-32); Bilirubin Total 0.8 mg/dL (0.2-1.0); Glucose Level 100 mg/dL (74-106); Magnesium 2.3 mg/dL (1.8-2.4); NT PRO-BNP 10425 pg/mL (<450); Potassium 3.4 mmol/L (3.5-5.1); Protein, Total 6.4 g/dL (6.4-8.2); Sodium Level 143 mmol/L (136-145); Troponin I < 0.02 ng/mL (0.0-0.045)
[2021-01-02 07:59] LABS: White Blood Cell Scan OK (OK)
[2021-01-02 08:00] LABS: Blood Morphology Comment NOT SEEN (NOT SEEN); Platelet Estimate DECR
--- NOTE | 2021-01-02 08:57 | P.CNS ---
Date of Consult: 01/02/21 Reason for Consult: Pleural effusion respiratory failure Chief Complaint: Shortness of breath History of Present Illness: Patient is 80 years of age currently on BiPAP admitted with progressive dyspnea for the past 2 weeks denies any fever chills she has a history of melanoma no other malignancies she seen by a c wpf developer as found to have hypoxic hypercapnic respiratory failure in addition to left-sided pleural effusion alert responsive cooperative Allergies No Known Allergies Allergy (Verified 01/01/21 20:48) Home Medications: Oxybutynin Chloride [Oxybutynin Chloride ER] 15 mg PO DAILY 04/27/12 Rabeprazole Sodium [Aciphex] 20 mg PO DAILY 04/27/12 Febuxostat [Uloric] 80 mg PO DAILY 03/16/13 Magnesium Oxide [Magnesium] 500 mg PO BID 07/10/14 Cranberry 300 mg PO BID 10/22/14 Pregabalin [Lyrica] 150 mg PO DAILY 10/22/14 Telmisartan/Hydrochlorothiazid [Micardis Hct 80-12.5 mg Tablet] 80 mg PO DAILY 10/22/14 Aspirin [Aspirin EC 81 MG] 81 mg PO DAILY 01/01/21 Clopidogrel Bisulfate [Plavix] 75 mg PO DAILY 01/01/21 Diphenhydramine HCl [Benadryl Allergy] 25 mg PO DAILY PRN 01/01/21 Doxazosin [Cardura*] 4 mg PO TID 01/01/21 Furosemide [Lasix] 40 mg PO DAILY 01/01/21 Iron 1 tab PO TID 01/01/21 Levothyroxine [Synthroid*] 125 mcg PO DAILY 01/01/21 Liothyronine Sodium [Cytomel] 5 mcg PO DAILY 01/01/21 Metoprolol Succinate [Toprol Xl*] 50 mg PO BID 01/01/21 Rosuvastatin [Crestor*] 5 mg PO DAILY 01/01/21 Zinc 100 mg PO DAILY 01/01/21 ursodioL [Ursodiol] 300 mg PO BID 01/01/21 Ascorbic Acid [Vitamin C] 500 mg PO DAILY 01/02/21 - Past Medical/Surgical History Diabetic: No -: Afib -: Cataracts -: Lymphedema -: Neuropathy -: Bilateral Carpal Tunnel -: Sarcoidosis -: Melanoma -: Right Shoulder Replacement -: L Knee replacment -: Hysterectomy - Family History Mother Medical History: Other (see notes) Notes: CHF Father Medical History: Other (see notes) Notes: CHF - Social History Smoking Status: Never smoker Alcohol use: No CD- Drugs: No Caffeine use: Yes Place of Residence: Home Review of Systems General: Weakness Respiratory: Shortness of Breath Physical Examination Temp Pulse Resp BP Pulse Ox 97.8 F 88 20 120/59 L 95 01/02/21 00:00 01/02/21 04:20 01/02/21 03:52 01/02/21 04:20 01/02/21 03:52 General: Alert, In no apparent distress, Oriented x3 Respiratory: Diminished (Diminished at the left base some crackles) Cardiovascular: No edema, Irregular heart rate/rhythm Gastrointestinal: Normal bowel sounds, Soft and benign Musculoskeletal: No clubbing, No swelling Laboratory Data (last 24 hrs) 01/01/21 13:59: PT 13.7 H, INR 1.16 01/01/21 13:59: WBC 8.40, Hgb 10.6 L, Hct 32.2 L, Plt Count 153 01/01/21 13:59: Sodium 142, Potassium 4.0, BUN 35 H, Creatinine 1.42 H, Glucose 90, Magnesium 2.5 H, Total Bilirubin 0.6, AST 15, ALT 18, Alkaline Phosphatase 119 H - Problems (1) Respiratory failure Current Visit: Yes Status: Acute Plan: Patient is 80 years of age admitted with shortness of breath hypoxic hypercapnic left-sided pleural effusion, cardiomegaly labs reviewed mildly any headache BNP is significantly elevated right now change release manager to nasal cannula oxygen bilateral decubitus of the chest ultrasound of the chest patient is on Plavix and aspirin hold thoracentesis for now picture she is stable may be done next week continue with diuresis thyroid function test Qualifiers: Chronicity: unspecified
[2021-01-02] MEDS ORDERED: POTASSIUM CL SA 10 MEQ TAB PO ONE (09:00)
[2021-01-02] MEDS: cloNIDine HCL 0.1 MG TAB PO SCH ×2 (09:00→21:00)
[2021-01-02] MEDS: ENOXAPARIN 40 MG/0.4 ML SQ SCH (09:00)
[2021-01-02] MEDS: carvediloL 12.5 MG TAB PO SCH ×2 (09:00→21:00)
--- NOTE | 2021-01-02 10:58 | RAD REPORT ---
EXAM DESCRIPTION: RAD - Chest Single View - 01/02/2021 10:40 am CLINICAL HISTORY: LEFT PLEURAL EFFUSION COMPARISON: Portable January 02 TECHNIQUE: AP portable chest image was obtained 01/02/2021 10:40 babb expiration . FINDINGS: Post thoracentesis expiration chest film shows no identifiable pneumothorax. Left-sided pl eural fluid has substantially reduced. Left hemithorax shows no new or progressive lung parenchymal p rocess. No new right lung field finding. Lung markings are all accentuated due to the expiration. IMPRESSION: No post thoracentesis pneumothorax identified.
--- NOTE | 2021-01-02 10:59 | RAD REPORT ---
EXAM DESCRIPTION: US - Chest - 01/02/2021 10:02 am CLINICAL HISTORY: left pleural effusion COMPARISON: Chest Single View dated 01/02/2021 FINDINGS: Sonographic evaluation of the left hemithorax was performed and shows a moderate to large left-sided pleural effusion. Atelectasis is present. Pleural fluid is centrally anechoic. Only trace amounts of echogenic material seen moving within the fluid. IMPRESSION: Moderate to large left-sided pleural effusion.
--- NOTE | 2021-01-02 11:04 | RAD REPORT ---
EXAM DESCRIPTION: US - Thoracentesis w/ US Guide - 01/02/2021 10:29 am CLINICAL HISTORY: left pleural effusion COMPARISON: Portable chest January 02, ultrasound chest January 02 TECHNIQUE: Patient presents for ultrasound-guided thoracentesis of a large left-sided effusions. Pat ient's anticoagulation therapy has been sufficiently stopped for this procedure. INR within acceptabl e limits. Patient had no contraindicated allergy history. Ultrasound-guided thoracentesis procedure, risks and alternatives were discussed with the patient in detail. After answering all questions both oral and written consent were obtained. Preliminary imaging of the chest identified a large left pleural effusion matching the imaging. Poste rior left access site was selected. The skin was prepped and draped in the usual sterile fashion. Ski n and deeper tissues were anesthetized with 1% lidocaine using sonographic guidance. Under sonographi c guidance a thoracentesis catheter was advanced into the pleural cavity. Proper placement was confir med. Approximately 15 mL of pleural fluid retained for requested laboratory studies. Drainage procedure was initiated and 1 liter of pleural fluid was removed. At the conclusion the proc edure the thoracentesis catheter was removed and a bandage placed at the puncture site. There were no immediate complications. Post thoracentesis chest film showed no pneumothorax. Patient was transferr ed back to the floor for continued care. Pleural fluid was delivered to the lab. Primary service is placing orders for lab studies. IMPRESSION: Successful ultrasound-guided thoracentesis of large left pleural effusion. There was 1 liter of pleural fluid removed. A 15 milliliter sample was retained and sent for laborato ry studies.
[2021-01-02] MEDS ORDERED: HOME MED 1 EA UNK (Diphenhydramine Hcl [Benadryl Allergy] 25 MG Tablet) PO PRN (11:10)
[2021-01-02] MEDS ORDERED: AMIODARONE HCL 150 MG in D5W 100 ML IV STA (11:37)
[2021-01-02] MEDS ORDERED: AMIODARONE HCL 900 MG in Dextrose 5%-Water 482 ML IV SCH (12:00)
[2021-01-02] MEDS ORDERED: DIPHENHYDRAMINE 25 MG TAB/CAP PO PRN (13:06)
[2021-01-02 13:39] LABS: Appearance CLEAR (CLEAR); Body Fluid Source PLEURAL; Color of fluid Yellow (COLORLESS)
[2021-01-02 13:40] LABS: Body Fluid WBC 533 /mm^3
[2021-01-02] MEDS: DOXAZOSIN 4 MG TAB PO SCH ×2 (13:46→21:00)
--- NOTE | 2021-01-02 16:24 | CON ---
Date of Consultation: 01/02/2021 Reason For Consultation: Significant shortness of breath. History Of Present Illness: An 80-year-old female seen yesterday in the office, appeared to be signi ficantly short of breath, so sent to the ER for inpatient admission and evaluation. The patient know n to have history of AFib that is paroxysmal, status post appendage closure recently. Appears to be very pale. Does not have any chest pain, but has significant lower extremity edema, shortness of nancy ath and orthopnea. Past Medical History: As outlined above in the HPI. Medications: Refer to reconciliation sheet for detailed list. Allergies: NO KNOWN DRUG ALLERGIES. Family History: No premature coronary artery disease or cancer. Social History: She does not smoke or drink. Does not use any drugs. Review of Systems: All systems reviewed and they were negative except what mentioned in the HPI. Physical Examination: Vital Signs: Reviewed. Head and neck: Pupils are equal, reactive to light. Intact eye movements. No JVD. No cervical lym phadenopathy. Neck is supple. Thyroid is not enlarged. Lungs: Decreased breathing sounds with crackles in the bases. No accessory muscle use or muscle ret raction. Heart: Irregularly irregular with S3. Abdomen: Soft, nontender. Bowel sounds positive. No masses or hernia. No rigidity or rebound. Extremities: Edema 3+. No clubbing, cyanosis. Intact pulses. Skin: No rash noted. Neurologic: Alert, awake, oriented x3. No acute focal deficits appreciated. LYMPH NODES: No cervical lymphadenopathy. Investigations: Creatinine 1.42, down to 1.30. Troponin negative x2. Hemoglobin is 10.7. Chest x- ray moderate CHF. Assessment And Recommendation: 1.Acute on chronic diastolic heart failure exacerbation. The patient will benefit from IV diuretics . Start Lasix 40 mg IV q.12 q.8 hours. Monitor BUN, creatinine, electrolytes. 2.Pleural effusion, moderate on the left. Pulmonary was consulted for thoracentesis and active diur esis as above. 3.Atrial fibrillation, paroxysmal, placed on amiodarone IV 24 hours load in attempt to convert to si nus rhythm. 4.Acute respiratory failure, hypoxic, mainly due to heart failure exacerbation and pleural effusions . Pulmonary was consulted for thoracentesis and start active diuresis as above. Thank you for the consult. /BETTEL Voice ID: [id number] Report ID: [id number]
[2021-01-02] MEDS: OXYBUTYNIN ER 5 MG TAB PO SCH (16:41)
[2021-01-02] MEDS: FUROSEMIDE 40 MG/4 ML VIAL IV SCH (16:42)
[2021-01-02] MEDS: URSODIOL 300 MG PO SCH (16:42)
[2021-01-02] MEDS ORDERED: ursodioL 300 MG CAP PO SCH (17:00)
--- NOTE | 2021-01-02 18:29 | RAD REPORT ---
EXAM DESCRIPTION: RAD - Chest Single View - 01/02/2021 3:51 am CLINICAL HISTORY: The patient is 80 years old and is Female; shortness of breath TECHNIQUE: Frontal view of the chest. COMPARISON: No relevant prior studies available. FINDINGS: Lungs: Prominent interstitial markings suggestive of interstitial edema or pneumonia. Pleural space: Blunting of the left costophrenic angle suggestive of a left pleural effusion. Left hemidiaphragm is obscured which can be seen with pleural effusion, as well as left lower lobe consolidation or atelectasis. No pneumothorax. Heart: Unremarkable. Mediastinum: Unremarkable. Bones/joints: Right shoulder arthroplasty. Soft tissues: Clips overlying the left axilla. IMPRESSION: 1. Prominent interstitial markings suggestive of interstitial edema or pneumonia. 2. Blunting of the left costophrenic angle suggestive of a left pleural effusion. Electronically signed by: Donavon Fuentes MD 01/02/2021 3:59 AM CDT Due to temporary technical issues with the PACS/Fluency reporting system, reports are being signed by the in house radiologists without review as a courtesy to insure prompt reporting. The interpreting radiologist is fully responsible for the content of the report.
[2021-01-02] MEDS ORDERED: ACETAMINOPHEN 500 MG TAB ONE (18:36)
[2021-01-02] MEDS ORDERED: NA CHLORIDE 0.9% 250 ML IV ONE ×2 (20:23→23:16)
[2021-01-02] MEDS: Magnesium Oxide [Magnesium] 250 MG Tablet PO SCH (21:00)
[2021-01-02] MEDS ORDERED: METOPROLOL XL 50 MG TAB PO SCH (21:00)
[2021-01-02] MEDS: TAMSULOSIN 0.4 MG SR CAP PO SCH (21:17)
[2021-01-02] MEDS ORDERED: TAMSULOSIN 0.4 MG SR CAP ONE (21:34)
[2021-01-02] MEDS ORDERED: NA CHLORIDE 0.9% 250 ML ONE ×2 (21:34→23:42)
[2021-01-03] MEDS: FUROSEMIDE 40 MG/4 ML VIAL IV SCH ×3 (01:00→16:22)
[2021-01-03] MEDS ORDERED: LIOTHYRONINE SOD 5 MCG TAB ONE (05:51)
[2021-01-03] MEDS ORDERED: LEVOTHYROXINE SOD 0.125 MG TAB ONE (05:51)
[2021-01-03] MEDS: LIOTHYRONINE SOD 5 MCG TAB PO SCH (05:56)
[2021-01-03] MEDS: LEVOTHYROXINE SOD 0.125 MG TAB PO SCH (05:56)
[2021-01-03] MEDS: ACETAMINOPHEN 500 MG TAB PO PRN (06:15)
[2021-01-03] MEDS ORDERED: ACETAMINOPHEN 500 MG TAB ONE (06:34)
[2021-01-03] MEDS: URSODIOL 300 MG PO SCH ×2 (08:00→16:22)
[2021-01-03] MEDS: carvediloL 12.5 MG TAB PO SCH ×2 (09:00→20:09)
[2021-01-03] MEDS: ENOXAPARIN 40 MG/0.4 ML SQ SCH ×2 (09:00→11:21)
[2021-01-03] MEDS: cloNIDine HCL 0.1 MG TAB PO SCH ×2 (09:00→20:09)
[2021-01-03] MEDS ORDERED: PREGABALIN 150 MG CAP PO SCH (09:00)
[2021-01-03] MEDS: DOXAZOSIN 4 MG TAB PO SCH ×3 (09:00→20:09)
[2021-01-03] MEDS ORDERED: OXYBUTYNIN CHLORIDE 15 MG PO SCH (09:00)
[2021-01-03] MEDS ORDERED: HOME MED 1 EA UNK (Ascorbic Acid [Vitamin C] 500 MG Capsule) PO SCH (09:00)
[2021-01-03] MEDS ORDERED: HOME MED 1 EA UNK (Pregabalin [Lyrica] 100 MG Capsule) PO SCH (09:00)
[2021-01-03] MEDS: VALSARTAN 160 MG TAB PO SCH (09:00)
[2021-01-03] MEDS ORDERED: LEVOTHYROXINE SOD 0.125 MG TAB PO SCH (09:00)
[2021-01-03] MEDS: hydroCHLOROthiazide 12.5 MG CAP PO SCH (09:00)
[2021-01-03] MEDS ORDERED: HOME MED 1 EA UNK (Rabeprazole Sodium [Aciphex] 20 MG Tablet.Dr) PO SCH (09:00)
[2021-01-03] MEDS ORDERED: [UNRECOGNIZED DRUG - OTHER] PO SCH (09:00)
[2021-01-03] MEDS: Magnesium Oxide [Magnesium] 250 MG Tablet PO SCH ×3 (09:00→20:10)
[2021-01-03] MEDS ORDERED: FUROSEMIDE 40 MG TABLET PO SCH (09:00)
[2021-01-03] MEDS: Febuxostat [Uloric] 40 MG Tablet PO SCH (09:00)
[2021-01-03] MEDS ORDERED: PANTOPRAZOLE 40MG TABLET PO ONE (10:53)
[2021-01-03] MEDS ORDERED: CLOPIDOGREL 75 MG TABLET ONE (10:54)
[2021-01-03] MEDS ORDERED: ASPIRIN EC 81 MG TAB PO ONE (10:54)
[2021-01-03] MEDS ORDERED: ASCORBIC ACID 500 MG TABLET ONE (10:54)
[2021-01-03] MEDS ORDERED: ENOXAPARIN 40 MG/0.4 ML SQ ONE (10:54)
[2021-01-03] MEDS: ASCORBIC ACID 500 MG TABLET PO SCH (11:07)
[2021-01-03] MEDS: CLOPIDOGREL 75 MG TABLET PO SCH (11:07)
[2021-01-03] MEDS: ASPIRIN EC 81 MG TAB PO SCH (11:07)
[2021-01-03] MEDS: PANTOPRAZOLE 40MG TABLET PO SCH (11:07)
--- NOTE | 2021-01-03 11:10 | P.PN ---
Subjective Date of Service: 01/03/21 Chief Complaint: pleural effusion Subjective: Improving ( patient is doing well she was transferred to the ICU demonstrates due to rapid AFib is currently on amiodarone prep denies any fever chills has some chest discomfort from the thoracentesis) Review of Systems 10-point ROS is otherwise unremarkable General: Weakness Physical Examination - Vital Signs Temperature: 98.3 F Blood Pressure: 93/53 Pulse: 118 Respirations: 14 Pulse Ox (%): 95 - Physical Exam General: Alert, Oriented x3 Neck: Supple Respiratory: Clear to auscultation bilaterally Assessment & Plan - Problems (Diagnosis) (1) Pleural effusion Current Visit: Yes Status: Acute Plan: patient is 80 years of age admitted with respiratory distress she had significant effusion on the left side status post thoracentesis 1 L drained S mildly lymphocytic predominant pleural fluid has been sent off for LDH glucose chest x-ray clear no evidence of pneumothorax is currently on IV amiodarone for AFib oxygenation satisfactory of ordered a CT pulmonary angiogram rule out thromboembolism or malignancy history of diastolic heart failure history of atrial fibrillation
[2021-01-03] MEDS: PREGABALIN 50 MG CAP PO SCH (11:35)
[2021-01-03] MEDS ORDERED: PREGABALIN 50 MG CAP ONE ×2 (11:53→11:54)
[2021-01-03] MEDS: NA CHLORIDE 0.9% 250 ML IV PRN ×4 (12:56→17:13)
[2021-01-03 13:07] LABS: Basophils % 0.4 % (0-1.3); Hematocrit 29.5 % (36.0-45.0); Lymphocytes % 9.8 % (15.3-44.8); MPV 10.5 fL (7.6-11.3); RBC Red Blood Cell Count 3.23 M/uL (3.86-4.86)
[2021-01-03] MEDS ORDERED: NA CHLORIDE 0.9% 500 ML ONE ×2 (13:15→17:07)
[2021-01-03 13:22] LABS: Magnesium 2.3 mg/dL (1.8-2.4); Phosphorus 3.7 mg/dL (2.5-4.9); Potassium 4.1 mmol/L (3.5-5.1)
[2021-01-03] MEDS ORDERED: ENOXAPARIN 100 MG/ML SYR SQ ONE ×2 (16:13→17:06)
[2021-01-03] MEDS: OXYBUTYNIN ER 5 MG TAB PO SCH (16:49)
[2021-01-03] MEDS: ROSUVASTATIN 10 MG TAB PO SCH (16:49)
[2021-01-03] MEDS: D5W 1,000 ML with NA BICARB 8.4% 50 MEQ IV SCH ×2 (19:20)
[2021-01-03] MEDS ORDERED: D5W 1,000 ML IV ONE (19:24)
[2021-01-03] MEDS: TAMSULOSIN 0.4 MG SR CAP PO SCH (20:09)
[2021-01-03] MEDS ORDERED: TAMSULOSIN 0.4 MG SR CAP ONE (20:28)
[2021-01-03 23:36] LABS: Potassium 4.3 mmol/L (3.5-5.1)
[2021-01-04] MEDS: FUROSEMIDE 40 MG/4 ML VIAL IV SCH ×3 (01:00→21:29)
[2021-01-04 05:32] LABS: Absolute Lymphocytes (CBC) 0.8 K/uL (0.7-4.9); Basophils % 0.7 % (0-1.3); Hematocrit 29.2 % (36.0-45.0); Lymphocytes % 9.9 % (15.3-44.8); MPV 10.1 fL (7.6-11.3); RBC Red Blood Cell Count 3.22 M/uL (3.86-4.86)
[2021-01-04] MEDS: LEVOTHYROXINE SOD 0.125 MG TAB PO SCH (06:06)
[2021-01-04] MEDS: LIOTHYRONINE SOD 5 MCG TAB PO SCH (06:06)
[2021-01-04 06:15] LABS: Magnesium 2.2 mg/dL (1.8-2.4); Phosphorus 3.8 mg/dL (2.5-4.9); Potassium 3.7 mmol/L (3.5-5.1); Thyroid Stimulating Hormone 1.35 uIU/mL (0.360-3.740)
[2021-01-04] MEDS ORDERED: ASPIRIN EC 81 MG TAB PO ONE (07:45)
[2021-01-04] MEDS ORDERED: PANTOPRAZOLE 40MG TABLET PO ONE (07:45)
[2021-01-04] MEDS ORDERED: PREGABALIN 50 MG CAP ONE (07:45)
[2021-01-04] MEDS ORDERED: CLOPIDOGREL 75 MG TABLET ONE (07:46)
[2021-01-04] MEDS ORDERED: ASCORBIC ACID 500 MG TABLET ONE (07:46)
[2021-01-04] MEDS: URSODIOL 300 MG PO SCH ×2 (08:00→11:01)
[2021-01-04] MEDS: D5W 1,000 ML with NA BICARB 8.4% 50 MEQ IV SCH ×2 (08:27)
[2021-01-04] MEDS: PREGABALIN 50 MG CAP PO SCH (08:29)
[2021-01-04] MEDS: CLOPIDOGREL 75 MG TABLET PO SCH (08:29)
[2021-01-04] MEDS: ASPIRIN EC 81 MG TAB PO SCH (08:29)
[2021-01-04] MEDS: PANTOPRAZOLE 40MG TABLET PO SCH (08:29)
[2021-01-04] MEDS: ASCORBIC ACID 500 MG TABLET PO SCH (08:29)
[2021-01-04] MEDS: ROSUVASTATIN 10 MG TAB PO SCH (08:30)
[2021-01-04] MEDS: DOXAZOSIN 4 MG TAB PO SCH (08:30)
[2021-01-04] MEDS: carvediloL 12.5 MG TAB PO SCH ×2 (08:30→12:49)
[2021-01-04] MEDS: cloNIDine HCL 0.1 MG TAB PO SCH (08:30)
[2021-01-04] MEDS: hydroCHLOROthiazide 12.5 MG CAP PO SCH (08:31)
[2021-01-04] MEDS: VALSARTAN 160 MG TAB PO SCH (08:31)
[2021-01-04] MEDS: Febuxostat [Uloric] 40 MG Tablet PO SCH (08:31)
[2021-01-04] MEDS: Magnesium Oxide [Magnesium] 250 MG Tablet PO SCH ×2 (08:31→20:45)
--- NOTE | 2021-01-04 09:35 | P.PN ---
Subjective Date of Service: 01/04/21 Chief Complaint: SHORT OF BREATH FOR 2 WEEKS. Subjective: Improving MS. GARCIA HAS BEEN DYSPNEIC FOR 2 WEEKS. SHE HAS NO CHANGE IN DIET OR MEDS. SHE HAS HAD WATCHMAN PROCEDURE DONE ABOUT 2 MONTHS AGO AND FELT NO CHANGES AFTER THAT.. SHE WAS TAKEN OFF XARELTO AFTER THAT. SHE HAS NO CHEST PAIN. SHE HAS L SIDE EFFUSION THAT HAS BEEN DRAINED AND ABOUT 1 LT FLUID CAME OUT. THIS WAS TRANSUDATIVE FLUID. HER BNP WAS HIGH IN 11K RANGE. SHE GOT LASIX IV BUT LATER DEVELOPED HYPOTENSION AND WAS GIVEN FLUIDS TO CORRECT DEHYDRATION. HER CREATININE THAT HAD RAISED TO 2 CAME DOWN TO 1.5 TODAY. I WAS OUT OF TOWN UNTIL TODAY AND DR. WEN COVERED FOR ME. HER ABG SHOWS PO2 OF 60. Review of Systems 10-point ROS is otherwise unremarkable Physical Examination - Vital Signs Temperature: 97 F Blood Pressure: 124/76 Pulse: 129 Respirations: 19 Pulse Ox (%): 96 - Physical Exam General: Oriented x3, Mild distress HEENT: Atraumatic, PERRLA, EOMI Neck: Supple, JVD not distended Respiratory: Clear to auscultation bilaterally, Normal air movement Cardiovascular: Irregular heart rate/rhythm Gastrointestinal: Normal bowel sounds, No tenderness Musculoskeletal: No tenderness Integumentary: No rashes Neurological: Normal speech, Normal tone, Normal affect Lymphatics: No axilla or inguinal lymphadenopathy - Studies Medications List Reviewed: Yes Assessment And Plan - Current Problems (Diagnosis) (1) Rapid atrial fibrillation Current Visit: Yes Status: Acute Plan: SHE IS ON AMIODARONE AND IT HAS NOT CONTROLLED HR YET. DR. MILLS ON CASE. WATCHMAN WAS DONE IN OCTOBER. (2) Prerenal azotemia Current Visit: Yes Status: Acute Plan: IMPROVED IN HP CONSULT DR. APARICIO SHE WILL NEED LASIX DRIP OR SO. (3) Hypoalbuminemia Current Visit: Yes Status: Acute Plan: THIS CAN BE FROM ACUTE ILLNESS. MEEK INPROCESS. (4) Pleural effusion Current Visit: Yes Status: Acute Plan: CHF MAY BE ONE ETIOLOGY BUT SHE MAY HAVE OTHER CAUSES ALSO AGREE WITH CT CHEST WHEN CREATININE COMES DOWN TO LESS THAN 1.5 (5) Respiratory failure Current Visit: Yes Status: Chronic Plan: SHE HAS INTERSTITIAL CHANGES IN LUNGS FOR A LONG DURATION. STABLE IN SYMPTOMS FOR YEARS Qualifiers: Chronicity: unspecified (6) Acute on chronic diastolic (congestive) heart failure Current Visit: Yes Status: Chronic Plan: SHE HAS BEEN ON LASIX FOR ABOUT 8 YEARS. NOW WE ARE HAVING ISSUES OF BALANCE BETWEEN LASIX , HER SYMPTOMS AND RENAL FUNCTION. REPEAT ECHO AND DOPPLER.
--- NOTE | 2021-01-04 09:40 | P.CNS ---
Date of Consult: 01/04/21 Reason for Consult: GABBY on CKD Requesting Physician: Fior Mathew Chief Complaint: SHORT OF BREATH FOR 2 WEEKS. History of Present Illness: 80F w/ PMHx of CKD3a, baseline SCr around 1.0 as of Sep 2019 (equivalent GFR 54 ml/min), overactive bladder, Htn, HLD, gout, peripheral neuropathy & afib s/p watchman, who presented with a two-week history of progressive shortness of breath and was admitted for further evaluation of a left pleural effusion. She denies history of malignancy and states that her routine cancer screening in the past were all unremarkable.She was noted to have a large left pleural effusion for which he underwent thoracenteses. She also developed rapid A. fib and today her heart rate has been trending anywhere from low 100s up to 150 bpm. She also has had episodes of hypotension. Serum creatinine on admission was 1.4 and worsened to 2.1 and currently at 1.5. She received Lasix previously but now the Lasix is on hold due to his AK I. BNP is elevated. Troponin is negative. Allergies No Known Allergies Allergy (Verified 01/01/21 20:48) Home Medications: Oxybutynin Chloride [Oxybutynin Chloride ER] 15 mg PO DAILY 04/27/12 Rabeprazole Sodium [Aciphex] 20 mg PO DAILY 04/27/12 Febuxostat [Uloric] 80 mg PO DAILY 03/16/13 Magnesium Oxide [Magnesium] 500 mg PO BID 07/10/14 Cranberry 300 mg PO BID 10/22/14 Pregabalin [Lyrica] 150 mg PO DAILY 10/22/14 Telmisartan/Hydrochlorothiazid [Micardis Hct 80-12.5 mg Tablet] 80 mg PO DAILY 10/22/14 Aspirin [Aspirin EC 81 MG] 81 mg PO DAILY 01/01/21 Clopidogrel Bisulfate [Plavix] 75 mg PO DAILY 01/01/21 Diphenhydramine HCl [Benadryl Allergy] 25 mg PO DAILY PRN 01/01/21 Doxazosin [Cardura*] 4 mg PO TID 01/01/21 Furosemide [Lasix] 40 mg PO DAILY 01/01/21 Iron 1 tab PO TID 01/01/21 Levothyroxine [Synthroid*] 125 mcg PO DAILY 01/01/21 Liothyronine Sodium [Cytomel] 5 mcg PO DAILY 01/01/21 Metoprolol Succinate [Toprol Xl*] 50 mg PO BID 01/01/21 Rosuvastatin [Crestor*] 5 mg PO DAILY 01/01/21 Zinc 100 mg PO DAILY 01/01/21 ursodioL [Ursodiol] 300 mg PO BID 01/01/21 Ascorbic Acid [Vitamin C] 500 mg PO DAILY 01/02/21 - Past Medical/Surgical History Diabetic: No -: Afib -: Cataracts -: Lymphedema -: Neuropathy -: Bilateral Carpal Tunnel -: Sarcoidosis -: Melanoma -: Right Shoulder Replacement -: L Knee replacment -: Hysterectomy - Family History Mother Medical History: Other (see notes) Notes: CHF Father Medical History: Other (see notes) Notes: CHF - Social History Smoking Status: Never smoker Alcohol use: No CD- Drugs: No Caffeine use: Yes Place of Residence: Home Review of Systems General: Weakness Eyes: Unremarkable ENT: Unremarkable Respiratory: Shortness of Breath, SOB with Excertion Cardiovascular: Orthopnea Gastrointestinal: Unremarkable Genitourinary: Other (overactive bladder) Musculoskeletal: Unremarkable Integumentary: Unremarkable Neurological: Other (peripheral neuropathy) Lymphatics: Unremarkable Physical Examination Temp Pulse Resp BP Pulse Ox 97 F 129 H 19 124/76 96 01/04/21 09:38 01/04/21 09:38 01/04/21 09:38 01/04/21 09:38 01/04/21 09:38 General: Mild distress HEENT: Atraumatic, Normocephalic Neck: Supple, JVD not distended Respiratory: Crackles/rales Cardiovascular: No rubs, No murmurs, Irregular heart rate/rhythm Gastrointestinal: Soft and benign, Non-distended Musculoskeletal: No clubbing Integumentary: No rashes Neurological: Normal speech, Normal tone Lymphatics: No axilla or inguinal lymphadenopathy Urinary: Other (no bladder distention) External genitalia: Deferred Rectal: Deferred Conclusions/Impression: # GABBY 2/2 hypoperfusion from poor forward flow secondary to rapid A. fib Has CKD3a, baseline SCr around 1.0 as of Sep 2019 (equivalent GFR 54 ml/min) urinalysis is unremarkable Has mild proteinuria 0.6 g on random UPCR renal ultrasound is unremarkable We will need heart rate control less than 110 bpm to improve renal blood flow monitor urine output Monitor renal panel # Overactive bladder Continue oxybutynin # Chronic metabolic alkalosis secondary to diuretics Cont Lasix at 40 mg IV twice a day, plan to DC when A. fib is rate controlled Once A. fib is rate controlled and cardiogenic pulmonary edema is resolved, we will need to correct her alkalosis either via giving IV fluid versus Diamox,as well as discontinuing Lasix # Acute respiratory failure 2/2 rapid afib & L pleural effusion less likely due to pulmonary embolism F/u TTE Continue Lasix 40 mg IV twice a day so we can avoid intubation S/p L thoracentesis - f/u fluid analysis result # Rapid Afib S/p Watchman remotely Mngt per Cardio # Htn with hypotensive episodes due to rapid A. fib Rate control per cardiology
[2021-01-04 10:10] LABS: Urine Appearance CLEAR (Clear); Urine Bilirubin NEGATIVE (Negative); Urine Blood NEGATIVE (Negative); Urine Color YELLOW (Yellow); Urine Glucose NEGATIVE (Negative); Urine Protein NEGATIVE (Negative); Urine Specific Gravity <=1.005 (1.005-1.030); Urine Urobilinogen 0.2 mg/dL (0.2-1.0)
[2021-01-04 10:11] LABS: Urine Microscopic Reflex ORDER UMIC
[2021-01-04] MEDS ORDERED: FUROSEMIDE 40 MG/4 ML VIAL IV SCH (10:37)
[2021-01-04 10:41] LABS: Urine Bacteria <20 /HPF (<20); Urine RBC <5 /HPF (NONE SEEN)
[2021-01-04 10:42] LABS: Urine Protein/Creatinine Ratio 0.6 ratio (<0.15)
--- NOTE | 2021-01-04 11:36 | P.HP ---
Certification for Inpatient Patient admitted to: Inpatient With expected LOS: >2 Midnights Patient will require the following post-hospital care: None Practitioner: I am a practitioner with admitting privileges, knowledge of patient current condition, hospital course, and medical plan of care. Services: Services provided to patient in accordance with Admission requirements found in Title 42 Section 412.3 of the Code of Federal Regulations Patient History Date of Service: 01/01/21 Reason for admission: SHORT OF BREATH FOR 2 WEEKS. History of Present Illness: Patient is an 80-year-old female who comes into the hospital after seeing the cardiology physician at the office and was found have a pleural effusion on the left side. Patient was sent into the emergency room for further evaluation. In the emergency room patient had a moderate to a large pleural effusion on the left. It appeared to be mobile. Patient was admitted to be scheduled for thoracentesis. Also workup the etiology of the pleural effusion. Patient will get thoracenteses in the morning as radiology will be here in-person on Tuesday morning. Otherwise, patient has had atrial fibrillation and wears a watch min. She has had fluctuations of her heart rate per Cardiology. However her rate is controlled with medication. She is not on launch thing anti coagulation and inderjit t is why she has a Watchman in place. At this time will admit the patient to the hospital for further evaluation. Allergies No Known Allergies Allergy (Verified 01/01/21 20:48) Home Medications: Oxybutynin Chloride [Oxybutynin Chloride ER] 15 mg PO DAILY 04/27/12 Rabeprazole Sodium [Aciphex] 20 mg PO DAILY 04/27/12 Febuxostat [Uloric] 80 mg PO DAILY 03/16/13 Magnesium Oxide [Magnesium] 500 mg PO BID 07/10/14 Cranberry 300 mg PO BID 10/22/14 Pregabalin [Lyrica] 150 mg PO DAILY 10/22/14 Telmisartan/Hydrochlorothiazid [Micardis Hct 80-12.5 mg Tablet] 80 mg PO DAILY 10/22/14 Aspirin [Aspirin EC 81 MG] 81 mg PO DAILY 01/01/21 Clopidogrel Bisulfate [Plavix] 75 mg PO DAILY 01/01/21 Diphenhydramine HCl [Benadryl Allergy] 25 mg PO DAILY PRN 01/01/21 Doxazosin [Cardura*] 4 mg PO TID 01/01/21 Furosemide [Lasix] 40 mg PO DAILY 01/01/21 Iron 1 tab PO TID 01/01/21 Levothyroxine [Synthroid*] 125 mcg PO DAILY 01/01/21 Liothyronine Sodium [Cytomel] 5 mcg PO DAILY 01/01/21 Metoprolol Succinate [Toprol Xl*] 50 mg PO BID 01/01/21 Rosuvastatin [Crestor*] 5 mg PO DAILY 01/01/21 Zinc 100 mg PO DAILY 01/01/21 ursodioL [Ursodiol] 300 mg PO BID 01/01/21 Ascorbic Acid [Vitamin C] 500 mg PO DAILY 01/02/21 - Past Medical/Surgical History Has patient received pneumonia vaccine in the past: Yes Diabetic: No -: Afib -: Cataracts -: Lymphedema -: Neuropathy -: Bilateral Carpal Tunnel -: Sarcoidosis -: Melanoma -: Right Shoulder Replacement -: L Knee replacment -: Hysterectomy - Family History Mother Medical History: Other (see notes) Notes: CHF Father Medical History: Other (see notes) Notes: CHF - Social History Alcohol use: No CD- Drugs: No Caffeine use: Yes Place of Residence: Home Review of Systems 10-point ROS is otherwise unremarkable Physical Examination - Vital Signs Temperature: 97 F Blood Pressure: 121/67 Pulse: 121 Respirations: 20 Pulse Ox (%): 98 - Physical Exam General: Alert, In no apparent distress, Oriented x3 HEENT: Atraumatic, PERRLA, Mucous membr. moist/pink, EOMI, Sclerae nonicteric Neck: Supple, 2+ carotid pulse no bruit, No LAD, Without JVD or thyroid abnormality Respiratory: Clear to auscultation bilaterally, Normal air movement Cardiovascular: Irregular heart rate/rhythm, Systolic murmur Gastrointestinal: Normal bowel sounds, Soft and benign, Non-distended, No tenderness Musculoskeletal: No clubbing, No swelling, No tenderness Neurological: Normal tone, Sensation intact, Cranial nerves 3-12 intact, Abnormal speech, Abnormal strength Assessment & Plan - Problems (Diagnosis) (1) Hypoalbuminemia Current Visit: Yes Status: Acute (2) Pleural effusion Current Visit: Yes Status: Acute (3) Rapid atrial fibrillation Current Visit: Yes Status: Acute (4) Acute on chronic diastolic (congestive) heart failure Current Visit: Yes Status: Chronic - Plan Plan: 1. Interventional radiology consultation 2. Ultrasound-guided thoracentesis order for in a.m. 3. Cardiology consultation 4. Pulmonary consultation 5. Continue cardiac meds 6. Monitor renal function 7. CT of the chest to evaluate lung mass 8. GI and DVT prophylaxis Discharge Plan: Home Plan to discharge in: Greater than 2 days - Advance Directives Does patient have a Living Will: Yes Does patient have a Durable POA for Healthcare: Yes - Code Status/Comfort Care Code Status Assessed: Yes Code Status: Full Code Critical Care: No Time Spent Managing PTS Care (In Minutes): 45
--- NOTE | 2021-01-04 11:47 | P.PN ---
Subjective Date of Service: 01/02/21 Patient status post thoracentesis. 1 L of pleural fluid removed. Patient states she is breathing much better. Last night she had to be placed on BiPAP. However, she is on nasal cannula at this time. She is in atrial fibrillation with rapid ventricular response. Spoke with Cardiology and they want patient to be on amiodarone drip. Notify supervisor malt house and will transfer to ICU for further evaluation. Echocardiogram pending. Review of Systems 10-point ROS is otherwise unremarkable Physical Examination - Vital Signs Temperature: 97 F Blood Pressure: 121/67 Pulse: 121 Respirations: 20 Pulse Ox (%): 98 - Physical Exam General: Alert, In no apparent distress, Oriented x3 Respiratory: Crackles/rales (Basilar crackles) Cardiovascular: Irregular heart rate/rhythm, Systolic murmur Gastrointestinal: Normal bowel sounds, Soft and benign, Non-distended, No tenderness, No rebound, No guarding Musculoskeletal: No clubbing, No swelling, No tenderness Neurological: Sensation intact, Cranial nerves 3-12 intact - Studies Medications List Reviewed: Yes Assessment & Plan - Problems (Diagnosis) (1) Hypoalbuminemia Current Visit: Yes Status: Acute (2) Pleural effusion Current Visit: Yes Status: Acute (3) Rapid atrial fibrillation Current Visit: Yes Status: Acute (4) Acute on chronic diastolic (congestive) heart failure Current Visit: Yes Status: Chronic - Plan Plan: Continue with plan of care as mentioned below: 1. Interventional radiology consultation appreciated-1 L of fluid removed; most likely transudative 2. Ultrasound-guided thoracentesis order for in a.m. 3. Cardiology consultation appreciated 4. Pulmonary consultation appreciated 5. Continue amiodarone drip for rate control 6. Monitor renal function 7. Ultrasound did not reveal any mass; his fluid that was removed. I will need to get CT to further evaluate 8. GI and DVT prophylaxis Discharge Plan: Home Plan to discharge in: Greater than 2 days - Advance Directives Does patient have a Living Will: Yes Does patient have a Durable POA for Healthcare: Yes - Code Status/Comfort Care Code Status: Full Code Critical Care: No Time Spent Managing PTS Care (In Minutes): 35
--- NOTE | 2021-01-04 11:55 | P.PN ---
Date of Service: 01/03/21 Subjective Patient was hypotensive. I believe patient was over diuresed. Spoke with Cardiology and echocardiogram is completely unremarkable. Normally ejection fraction and normal right ventricular pressures. Will start patient on some IV fluids. Review of Systems 10-point ROS is otherwise unremarkable Physical Examination - Vital Signs Reviewed - Physical Exam General: Alert, In no apparent distress, Oriented x3 Respiratory: Crackles/rales (Basilar crackles) Cardiovascular: Irregular heart rate/rhythm, Systolic murmur Gastrointestinal: Normal bowel sounds, Soft and benign, Non-distended, No tenderness, No rebound, No guarding Musculoskeletal: No clubbing, No swelling, No tenderness Neurological: Sensation intact, Cranial nerves 3-12 intact Assessment & Plan - Problems (Diagnosis) (1) Hypoalbuminemia Current Visit: Yes Status: Acute (2) Pleural effusion Current Visit: Yes Status: Acute (3) Rapid atrial fibrillation Current Visit: Yes Status: Acute (4) Acute on chronic diastolic (congestive) heart failure Current Visit: Yes Status: Chronic - Plan Plan: Continue with plan of care as mentioned below: 1. Hold off on amiodarone drip per Cardiology recommendation. Start IV fluids; hold IV Lasix per Cardiology recommendation 2. Pulmonary concern for pulmonary embolism. Give Lovenox 1mg/kg SQ x1 3. Spoke with Cardiology and echocardiogram reviewed. Will reassess patient in the morning. Hold amiodarone 4. Renal function elevated; 5. GI and DVT prophylaxis
[2021-01-04] MEDS ORDERED: AMIODARONE HCL 900 MG in Dextrose 5%-Water 482 ML IV SCH (14:00)
[2021-01-04] MEDS ORDERED: AMIODARONE HCL 150 MG in D5W 100 ML IV STA (14:06)
--- NOTE | 2021-01-04 15:36 | PN ---
Date of Progress Note: 01/04/2021 Subjective: Seen by bedside. Continues to feel tired. Her heart rate is close to 100 now. Blood p ressure is up yesterday. Blood pressure was done and shows a slightly tight, responded very well to fluids. Review of Systems: No chest pain or significant shortness of breath. Feels generally very weak. No history of urinary urgency. All other systems reviewed and they are negative. Physical Examination: Vital Signs: Temperature is 97.7, heart rate 104, breathing at 16, blood pressure is 122/89, saturat ing 99%. General: Pleasant elderly female, no apparent distress. Head and Neck: Pupils are equal, reactive to light. Intact eye movements. No JVD. No cervical lym phadenopathy. Neck: Supple. Thyroid is not enlarged. Lungs: Clear to auscultation bilaterally. No rhonchi, rales, or crackles. No accessory muscle use. Heart: Irregularly irregular. No extra sounds. Abdomen: Soft, nontender. Bowel sounds positive. No organomegaly. No masses or hernia. No rigidi ty or rebound. Extremities: No edema, clubbing, or cyanosis. Intact pulses. Skin: No rash noted. Neurologic: Alert, awake, oriented x3. No acute focal deficits appreciated. Lymph Nodes: No cervical or axillary lymphadenopathy. Investigations: Creatinine today is 1.53. Assessment And Recommendations: 1.Atrial fibrillation. This patient has paroxysmal atrial fibrillation. When she goes into atrial fibrillation, she starts having heart failure symptoms. Start her on amiodarone drip; however, her b lood pressure dropped and she was dehydrated now. Since her blood pressure is up and she is well hyd rated, I will put her on IV amiodarone. We will load her again for 24 hours and attempt to convert h er to sinus rhythm. If she does not convert on that, I might elect to do cardioversion on Tuesday. 2.Acute on chronic diastolic heart failure, gets exacerbated with being in atrial fibrillation rhyth m. We will plan to convert to sinus rhythm as outlined above. 3.Acute renal failure due to dehydration. Lasix was held and creatinine is much better today. We w ill monitor very closely. SR/MODL Voice ID: [id number] Report ID: [id number]
[2021-01-04] MEDS ORDERED: NA CHLORIDE 0.9% 250 ML IV ONE (15:39)
[2021-01-04] MEDS ORDERED: NA CHLORIDE 0.9% 250 ML ONE (15:58)
[2021-01-04] MEDS: OXYBUTYNIN ER 5 MG TAB PO SCH (16:00)
--- NOTE | 2021-01-04 17:49 | RAD REPORT ---
EXAM DESCRIPTION: US - Renal Ultrasound-Complete - 01/04/2021 4:57 pm CLINICAL HISTORY: Abdominal pain/abnormal labs FINDINGS: The right kidney measures 10 centimeters cm with a mildly increased echotexture. The left kidney measures cm with a mildly increased echotexture. Hydronephrosis is not seen. IMPRESSION: Mildly increased renal echotexture may indicate parenchymal disease
[2021-01-04] MEDS ORDERED: ENOXAPARIN 30 MG/0.3 ML SQ SCH (21:00)
[2021-01-04] MEDS: ENOXAPARIN 40 MG/0.4 ML SQ SCH (21:28)
[2021-01-04] MEDS: TAMSULOSIN 0.4 MG SR CAP PO SCH (21:29)
[2021-01-04] MEDS ORDERED: ENOXAPARIN 40 MG/0.4 ML SQ ONE (21:34)
[2021-01-04] MEDS ORDERED: FUROSEMIDE 40 MG/4 ML VIAL ONE (21:34)
[2021-01-04] MEDS ORDERED: TAMSULOSIN 0.4 MG SR CAP ONE (21:34)
[2021-01-05 05:07] LABS: Magnesium 2.1 mg/dL (1.8-2.4); Phosphorus 3.5 mg/dL (2.5-4.9); Potassium 3.7 mmol/L (3.5-5.1)
[2021-01-05] MEDS: LEVOTHYROXINE SOD 0.125 MG TAB PO SCH (05:53)
[2021-01-05] MEDS: LIOTHYRONINE SOD 5 MCG TAB PO SCH (05:53)
[2021-01-05] MEDS: URSODIOL 300 MG PO SCH ×2 (08:00→17:00)
--- NOTE | 2021-01-05 08:13 | ECHO ---
HEIGHT: 5 ft 6 in WEIGHT: 213 lb 0 oz DATE OF STUDY: 01/02/[address]: Fior Mathew MD 2-DIMENSIONAL: YES M.MODE: YES DOPPLER: YES COLOR FLOW: YES TDS: NO PORTABLE: NO DEFINITY: NO BUBBLE STUDY: NO DIAGNOSIS: CARDIAC HISTORY: CATHERIZATION: SURGERY: PROSTHETIC VALVE: PACEMAKER: MEASUREMENTS (cm) DIASTOLIC (NORMALS) SYSTOLIC (NORMALS) IVSd 1.1 (0.6-1.2) LA Diam 4.1 (1.9-4.0) LVEF 63% LVIDd 4.8 (3.5-5.7) LVIDs 3.2 (2.0-3.5) %FS 34% LVPWd 1.1 (0.6-1.2) Ao Diam 2.3 (2.0-3.7) 2 DIMENSIONAL ASSESSMENT: RIGHT ATRIUM: NORMAL LEFT ATRIUM: ENLARGED RIGHT VENTRICLE: NORMAL LEFT VENTRICLE: NORMAL TRICUSPID VALVE: MITRAL VALVE: PULMONIC VALVE: AORTIC VALVE: PERICARDIAL EFFUSION: NONE AORTIC ROOT: NORMAL LEFT VENTRICULAR WALL MOTION: NORMAL DOPPLER/COLOR FLOW: SEE BELOW COMMENTS: NORMAL LEFT VENTRICULAR EJECTION FRACTION 60-65%. MILD MITRAL, TRICUSPID AND PULMONARY REGURGITATION. MODERATE TRICUSPID REGURGITATION. LEFT ATRIAL ENLARGEMENT. TECHNOLOGIST: Cecilia KRUGER
[2021-01-05] MEDS: Magnesium Oxide [Magnesium] 250 MG Tablet PO SCH ×2 (09:00→20:06)
--- NOTE | 2021-01-05 09:40 | RAD REPORT ---
EXAM DESCRIPTION: CT - Chest Angio - 01/05/2021 9:07 am CLINICAL HISTORY: Chest pain COMPARISON: 2015 TECHNIQUE: Dynamically enhanced axial 3 mm thick images of the chest were obtained during administra tion of <100> mL Isovue 370 IV contrast. Coronal and oblique reconstruction images were generated and reviewed. Exam utilizes a protocol for optimal evaluation of pulmonary arterial tree. Maximum intensity projections 3D imaging was utilized All CT scans are performed using dose optimization technique as appropriate and may include automated exposure control or mA/KV adjustment according to patient size. FINDINGS: A pulmonary embolus is not seen. A thoracic aortic aneurysm is not noted. Small to moderate bilateral pleural effusions. Bibasilar atelectasis. Postsurgical changes involve the heart. A pericardial effusion is not seen. Mild to moderate bilateral ground-glass opacities within the lungs. . IMPRESSION: Negative for a pulmonary embolism. Mild to moderate bilateral ground-glass opacities within the lungs may indicate pulmonary edema
[2021-01-05] MEDS: ROSUVASTATIN 10 MG TAB PO SCH (10:27)
[2021-01-05] MEDS: PANTOPRAZOLE 40MG TABLET PO SCH (10:27)
[2021-01-05] MEDS: FUROSEMIDE 40 MG/4 ML VIAL IV SCH ×2 (10:27→20:05)
[2021-01-05] MEDS: ENOXAPARIN 40 MG/0.4 ML SQ SCH ×2 (10:27→20:06)
[2021-01-05] MEDS: CLOPIDOGREL 75 MG TABLET PO SCH (10:27)
[2021-01-05] MEDS ORDERED: PANTOPRAZOLE 40MG TABLET PO ONE (10:42)
[2021-01-05] MEDS ORDERED: FUROSEMIDE 40 MG/4 ML VIAL ONE ×2 (10:43→19:47)
[2021-01-05] MEDS ORDERED: ASCORBIC ACID 500 MG TABLET ONE (10:43)
[2021-01-05] MEDS ORDERED: ENOXAPARIN 40 MG/0.4 ML SQ ONE ×2 (10:43→19:47)
[2021-01-05] MEDS ORDERED: CLOPIDOGREL 75 MG TABLET ONE (10:43)
[2021-01-05] MEDS: PREGABALIN 50 MG CAP PO SCH (11:27)
[2021-01-05] MEDS: ASCORBIC ACID 500 MG TABLET PO SCH (11:27)
[2021-01-05] MEDS ORDERED: PREGABALIN 50 MG CAP ONE (11:47)
[2021-01-05] MEDS: AMIODARONE HCL 900 MG in Dextrose 5%-Water 482 ML IV SCH (14:05)
--- NOTE | 2021-01-05 17:56 | P.PN ---
Subjective Date of Service: 01/05/21 Chief Complaint: SHORT OF BREATH FOR 2 WEEKS. Subjective: Improving MS. GARCIA HAS BEEN DYSPNEIC FOR 2 WEEKS. SHE HAS NO CHANGE IN DIET OR MEDS. SHE HAS HAD WATCHMAN PROCEDURE DONE ABOUT 2 MONTHS AGO AND FELT NO CHANGES AFTER THAT.. SHE WAS TAKEN OFF XARELTO AFTER THAT. SHE HAS NO CHEST PAIN. SHE HAS L SIDE EFFUSION THAT HAS BEEN DRAINED AND ABOUT 1 LT FLUID CAME OUT. THIS WAS TRANSUDATIVE FLUID. HER BNP WAS HIGH IN 11K RANGE. SHE GOT LASIX IV BUT LATER DEVELOPED HYPOTENSION AND WAS GIVEN FLUIDS TO CORRECT DEHYDRATION. HER CREATININE THAT HAD RAISED TO 2 CAME DOWN TO 1.5 TODAY. I WAS OUT OF TOWN UNTIL TODAY AND DR. WEN COVERED FOR ME. HER ABG SHOWS PO2 OF 60. FEELS WELL, WEAK, HR IS STILL HIGH AT 110 OR SO. Review of Systems General: Weakness, Malaise Physical Examination - Vital Signs Temperature: 98.3 F Blood Pressure: 120/69 Pulse: 97 Respirations: 16 Pulse Ox (%): 99 - Physical Exam General: Oriented x3, Mild distress, Obese HEENT: Atraumatic, PERRLA, EOMI Neck: Supple, JVD not distended Respiratory: Clear to auscultation bilaterally, Normal air movement Cardiovascular: Regular rate/rhythm, Normal S1 S2 Gastrointestinal: Normal bowel sounds, No tenderness Musculoskeletal: No tenderness Integumentary: No rashes Neurological: Normal speech, Normal tone, Normal affect Lymphatics: No axilla or inguinal lymphadenopathy - Studies Medications List Reviewed: Yes Assessment And Plan - Current Problems (Diagnosis) (1) Rapid atrial fibrillation Current Visit: Yes Status: Acute Plan: SHE IS ON AMIODARONE AND IT HAS NOT CONTROLLED HR YET. DR. MILLS ON CASE. WATCHMAN WAS DONE IN OCTOBER. DR. MILLS WORKING ON PLAN. (2) Prerenal azotemia Current Visit: Yes Status: Acute Plan: IMPROVED IN [place] CONSULT DR. APARICIO SHE WILL NEED LASIX DRIP OR SO. RECOVERED. BACK ON IV LASIX BY CREDIT COLLECTION SPECIALIST. (3) Hypoalbuminemia Current Visit: Yes Status: Acute Plan: THIS CAN BE FROM ACUTE ILLNESS. MEEK INPROCESS. (4) Pleural effusion Current Visit: Yes Status: Acute Plan: CHF MAY BE ONE ETIOLOGY BUT SHE MAY HAVE OTHER CAUSES ALSO AGREE WITH CT CHEST WHEN CREATININE COMES DOWN TO LESS THAN 1.5 (5) Respiratory failure Current Visit: Yes Status: Chronic Plan: SHE HAS INTERSTITIAL CHANGES IN LUNGS FOR A LONG DURATION. STABLE IN SYMPTOMS FOR YEARS MOD PULM EDEMA. WATCH LAB DAILY. LASIX IV BID. Qualifiers: Chronicity: unspecified (6) Acute on chronic diastolic (congestive) heart failure Current Visit: Yes Status: Chronic Plan: SHE HAS BEEN ON LASIX FOR ABOUT 8 YEARS. NOW WE ARE HAVING ISSUES OF BALANCE BETWEEN LASIX , HER SYMPTOMS AND RENAL FUNCTION. REPEAT ECHO AND DOPPLER.
[2021-01-05] MEDS: OXYBUTYNIN ER 5 MG TAB PO SCH (18:35)
[2021-01-05] MEDS ORDERED: TAMSULOSIN 0.4 MG SR CAP ONE (19:47)
[2021-01-05] MEDS: TAMSULOSIN 0.4 MG SR CAP PO SCH (20:06)
--- NOTE | 2021-01-05 22:49 | PN ---
Date of Progress Note: 01/05/2021 Chief Complaint: Acute on chronic kidney injury. History Of Present Illness: The patient is an 80-year-old woman with history of chronic kidney disea se stage 3A. Baseline creatinine level 1.0 and GFR 54. Blood work to check renal function was done in September 2019. The patient has history of overactive bladder, hypertension, gout, peripheral neur opathy, atrial fibrillation. She denies history of malignancy and states that she had routine screen ing done in the past and was unremarkable. The patient developed rapid atrial fibrillation and is on treatment and likely will need cardioversion. The patient remains hemodynamically stable. Troponin is negative. BNP was elevated. Review of Systems: The patient denies chest pain, palpitation, syncope. Physical Examination: Lungs: Clear to auscultation bilaterally. Heart: S1, S2. Abdomen: Soft, benign. Extremities: Minimal edema. Impression And Plan: 1.Acute on chronic kidney injury due to hypoperfusion in the setting of rapid atrial fibrillation. The patient has history of proteinuria. Renal ultrasound was unremarkable. Proteinuria of mild degr ee up to 0.6 g. It is noncontributory to acute kidney injury. The patient will need further workup for proteinuria pending outpatient. 2.Overactive bladder. Continue oxybutynin. 3.The patient will continue Lasix for volume control to prevent cardiogenic pulmonary edema. 4.Respiratory failure, acute secondary to pleural effusion and rapid atrial fibrillation. Pulmonary embolus workup per primary team. Continue Lasix for volume control t o prevent pulmonary edema. KYM/MODRenita Voice ID: [id number] Report ID: [id number]
[2021-01-06] MEDS: AMIODARONE HCL 900 MG in Dextrose 5%-Water 482 ML IV SCH (05:19)
[2021-01-06 05:21] LABS: Absolute Lymphocytes (CBC) 0.9 K/uL (0.7-4.9); Basophils % 0.5 % (0-1.3); Hematocrit 32.5 % (36.0-45.0); Lymphocytes % 12.1 % (15.3-44.8); MPV 9.8 fL (7.6-11.3); RBC Red Blood Cell Count 3.65 M/uL (3.86-4.86)
[2021-01-06 05:42] LABS: Magnesium 2.1 mg/dL (1.8-2.4); Phosphorus 3.5 mg/dL (2.5-4.9); Potassium 3.9 mmol/L (3.5-5.1)
[2021-01-06] MEDS: LIOTHYRONINE SOD 5 MCG TAB PO SCH (05:56)
[2021-01-06] MEDS: LEVOTHYROXINE SOD 0.125 MG TAB PO SCH (05:56)
[2021-01-06] MEDS: URSODIOL 300 MG PO SCH ×2 (08:00→17:00)
[2021-01-06] MEDS ORDERED: FUROSEMIDE 40 MG/4 ML VIAL ONE (08:37)
[2021-01-06] MEDS ORDERED: FLUMAZENIL 0.1 MG/ML (5 mL VIAL) IV ONE (08:37)
[2021-01-06] MEDS ORDERED: MIDAZOLAM HCL 2 MG/2 ML INJ ONE ×2 (08:37→10:04)
[2021-01-06] MEDS ORDERED: ENOXAPARIN 40 MG/0.4 ML SQ ONE ×2 (08:38→21:09)
[2021-01-06] MEDS ORDERED: ATROPINE SULF 1 MG/10 ML SYR IV ONE (08:38)
[2021-01-06] MEDS: ENOXAPARIN 40 MG/0.4 ML SQ SCH ×2 (08:44→20:52)
[2021-01-06] MEDS: Magnesium Oxide [Magnesium] 250 MG Tablet PO SCH ×2 (09:00→20:52)
[2021-01-06] MEDS: PREGABALIN 50 MG CAP PO SCH (09:00)
[2021-01-06] MEDS ORDERED: POTASSIUM 25 MEQ EFFERV TAB PO ONE (09:00)
[2021-01-06] MEDS: FUROSEMIDE 40 MG/4 ML VIAL IV SCH ×2 (09:00→21:52)
[2021-01-06] MEDS: ASCORBIC ACID 500 MG TABLET PO SCH (09:00)
[2021-01-06] MEDS ORDERED: NA CHLORIDE 0.9% 1,000 ML ONE (09:57)
--- NOTE | 2021-01-06 12:37 | P.PN ---
Subjective Date of Service: 01/06/21 Chief Complaint: Respiratory failure Subjective: Improving (Patient is improving status schedule for a cardioversion today most likely diastolic dysfunction patient has bilateral pleural effusion) Review of Systems General: Weakness Respiratory: Shortness of Breath Physical Examination - Vital Signs Temperature: 96.9 F Blood Pressure: 107/37 Pulse: 55 Respirations: 14 Pulse Ox (%): 100 - Physical Exam General: Alert, Mild distress Respiratory: Clear to auscultation bilaterally, Crackles/rales Cardiovascular: Edema - Studies Medications List Reviewed: Yes Assessment & Plan - Problems (Diagnosis) (1) Acute on chronic diastolic (congestive) heart failure Current Visit: Yes Status: Chronic Plan: Most likely patient has significant diastolic dysfunction continue with diuresis schedule for a cardioversion titrate O2 down to a sat of 90% labs reviewed patient is on Lasix
--- NOTE | 2021-01-06 13:11 | P.PN ---
Subjective Date of Service: 01/06/21 Chief Complaint: Respiratory failure Subjective: Improving MS. GARCIA HAS BEEN DYSPNEIC FOR 2 WEEKS. SHE HAS NO CHANGE IN DIET OR MEDS. SHE HAS HAD WATCHMAN PROCEDURE DONE ABOUT 2 MONTHS AGO AND FELT NO CHANGES AFTER THAT.. SHE WAS TAKEN OFF XARELTO AFTER THAT. SHE HAS NO CHEST PAIN. SHE HAS L SIDE EFFUSION THAT HAS BEEN DRAINED AND ABOUT 1 LT FLUID CAME OUT. THIS WAS TRANSUDATIVE FLUID. HER BNP WAS HIGH IN 11K RANGE. SHE GOT LASIX IV BUT LATER DEVELOPED HYPOTENSION AND WAS GIVEN FLUIDS TO CORRECT DEHYDRATION. HER CREATININE THAT HAD RAISED TO 2 CAME DOWN TO 1.5 TODAY. I WAS OUT OF TOWN UNTIL TODAY AND DR. WEN COVERED FOR ME. HER ABG SHOWS PO2 OF 60. FEELS WELL, WEAK, HR IS STILL HIGH AT 110 OR SO. SHE IS STABLE AND JAMAL CARDIOVERTED TODAY. BP IS STABLE. Physical Examination - Vital Signs Temperature: 96.9 F Blood Pressure: 107/37 Pulse: 55 Respirations: 14 Pulse Ox (%): 100 - Physical Exam General: Oriented x3, Mild distress HEENT: Atraumatic, PERRLA, EOMI Neck: Supple, JVD not distended Respiratory: Clear to auscultation bilaterally, Normal air movement Cardiovascular: Regular rate/rhythm, Normal S1 S2 Gastrointestinal: Normal bowel sounds, No tenderness Musculoskeletal: No tenderness Integumentary: No rashes Neurological: Normal speech, Normal tone, Normal affect Lymphatics: No axilla or inguinal lymphadenopathy - Studies Medications List Reviewed: Yes Assessment And Plan - Current Problems (Diagnosis) (1) Rapid atrial fibrillation Current Visit: Yes Status: Acute Plan: SHE IS ON AMIODARONE AND IT HAS NOT CONTROLLED HR YET. DR. MILLS ON CASE. WATCHMAN WAS DONE IN OCTOBER. DR. MILLS WORKING ON PLAN. (2) Prerenal azotemia Current Visit: Yes Status: Acute Plan: IMPROVED IN [place] CONSULT DR. APARICIO SHE WILL NEED LASIX DRIP OR SO. RECOVERED. BACK ON IV LASIX BY INSULATION WORKER. IMPROVED BACK TO NORMAL ABLE TO TOLERATE LASIX NOW. (3) Hypoalbuminemia Current Visit: Yes Status: Acute Plan: THIS CAN BE FROM ACUTE ILLNESS. MEEK INPROCESS. NORMAL ALB CREAT RATIO. (4) Pleural effusion Current Visit: Yes Status: Acute Plan: CHF MAY BE ONE ETIOLOGY BUT SHE MAY HAVE OTHER CAUSES ALSO AGREE WITH CT CHEST WHEN CREATININE COMES DOWN TO LESS THAN 1.5 (5) Respiratory failure Current Visit: Yes Status: Chronic Plan: SHE HAS INTERSTITIAL CHANGES IN LUNGS FOR A LONG DURATION. STABLE IN SYMPTOMS FOR YEARS MOD PULM EDEMA. WATCH LAB DAILY. LASIX IV BID. Qualifiers: Chronicity: unspecified (6) Acute on chronic diastolic (congestive) heart failure Current Visit: Yes Status: Chronic Plan: SHE HAS BEEN ON LASIX FOR ABOUT 8 YEARS. NOW WE ARE HAVING ISSUES OF BALANCE BETWEEN LASIX , HER SYMPTOMS AND RENAL FUNCTION. REPEAT ECHO AND DOPPLER.
[2021-01-06] MEDS: CLOPIDOGREL 75 MG TABLET PO SCH (13:40)
[2021-01-06] MEDS: PANTOPRAZOLE 40MG TABLET PO SCH (13:40)
[2021-01-06] MEDS: AMIODARONE HCL 200 MG TAB PO SCH ×2 (13:40→20:52)
[2021-01-06] MEDS: ROSUVASTATIN 10 MG TAB PO SCH (13:43)
[2021-01-06] MEDS ORDERED: POTASSIUM CL SA 10 MEQ TAB PO ONE (13:59)
[2021-01-06] MEDS ORDERED: CLOPIDOGREL 75 MG TABLET ONE (13:59)
[2021-01-06] MEDS ORDERED: PANTOPRAZOLE 40MG TABLET PO ONE (13:59)
[2021-01-06] MEDS ORDERED: AMIODARONE HCL 200 MG TAB ONE ×2 (13:59→21:08)
[2021-01-06] MEDS ORDERED: POTASSIUM 25 MEQ EFFERV TAB ONE (14:02)
--- NOTE | 2021-01-06 15:02 | PN ---
Date of Progress Note: 01/06/2021 Subjective: The patient had AFib with RVR. The patient is planned for cardioversion. Blood pressur e is still on the lower side. The patient's kidney function has been improved significantly. Physical Examination: Vital Signs: Blood pressure 107/37, pulse of 55, afebrile. The patient received Lasix yesterday. H ad urine output of 5600, negative of 2800. Chest: Faint thrills bilateral base. Heart: S1, S2. Regular. Abdomen: Soft, nontender. Extremity: No edema. Neuro: Alert. No focality. Laboratory Data: WBC 7.1, H and H 10.8/32.5. Sodium 138, potassium 3.9, bicarb 33, BUN 31, creatini ne 1.1, GFR of 44, calcium 8.7, phosphorus 3.5, magnesium 2.1. Current Medications: The patient on include; 1.Flomax. 2.Plavix. 3.Amiodarone. 4.Rosuvastatin. 5.Lyrica. 6.Lasix 40 b.i.d. 7.Levothyroxine. 8.KCl. Assessment And Plan: 1.Acute kidney injury on chronic kidney disease secondary to cardiorenal with slightly on the over v olume side. The patient is on the recovery phase. The patient had CT angio yesterday with contrast. I am going to continue the patient on diuresis and we will monitor the patient closely. 2.Hypertension, currently blood pressure on the lower side. We will utilize blood pressure for more diuresis. 3.Hypokalemia. Continue supplement. 4.Atrial fibrillation with rapid ventricular response as by Cardiology. Plan for cardioversion robert champion. We will follow up. IVONE Voice ID: [id number] Report ID: [id number]
[2021-01-06] MEDS: OXYBUTYNIN ER 5 MG TAB PO SCH (17:23)
[2021-01-06] MEDS: TAMSULOSIN 0.4 MG SR CAP PO SCH (20:52)
[2021-01-06] MEDS ORDERED: TAMSULOSIN 0.4 MG SR CAP ONE (21:09)
[2021-01-07 05:02] LABS: Absolute Lymphocytes (CBC) 0.7 K/uL (0.7-4.9); Basophils % 0.6 % (0-1.3); Lymphocytes % 9.5 % (15.3-44.8); MPV 9.1 fL (7.6-11.3); RBC Red Blood Cell Count 3.39 M/uL (3.86-4.86)
[2021-01-07 05:17] LABS: Albumin 2.3 g/dL (3.4-5.0); Magnesium 2.3 mg/dL (1.8-2.4); Phosphorus 3.7 mg/dL (2.5-4.9)
[2021-01-07] MEDS ORDERED: PANTOPRAZOLE 40MG TABLET PO ONE (05:23)
[2021-01-07] MEDS: LIOTHYRONINE SOD 5 MCG TAB PO SCH (05:47)
[2021-01-07] MEDS: PANTOPRAZOLE 40MG TABLET PO SCH (05:47)
[2021-01-07] MEDS: LEVOTHYROXINE SOD 0.125 MG TAB PO SCH (05:47)
[2021-01-07] MEDS: URSODIOL 300 MG PO SCH ×2 (08:00→16:28)
[2021-01-07] MEDS: ROSUVASTATIN 10 MG TAB PO SCH (08:27)
[2021-01-07] MEDS: ENOXAPARIN 40 MG/0.4 ML SQ SCH ×2 (08:27→21:00)
[2021-01-07] MEDS: ASCORBIC ACID 500 MG TABLET PO SCH (08:27)
[2021-01-07] MEDS: AMIODARONE HCL 200 MG TAB PO SCH ×2 (08:27→21:14)
[2021-01-07] MEDS: CLOPIDOGREL 75 MG TABLET PO SCH (08:27)
[2021-01-07] MEDS: Magnesium Oxide [Magnesium] 250 MG Tablet PO SCH ×2 (08:28→21:16)
[2021-01-07] MEDS: FUROSEMIDE 40 MG/4 ML VIAL IV SCH (08:28)
[2021-01-07] MEDS: PREGABALIN 50 MG CAP PO SCH (08:31)
[2021-01-07] MEDS ORDERED: AMIODARONE HCL 200 MG TAB ONE (08:42)
[2021-01-07] MEDS ORDERED: PREGABALIN 75 MG CAP PO ONE (08:42)
[2021-01-07] MEDS ORDERED: FUROSEMIDE 40 MG/4 ML VIAL ONE (08:43)
[2021-01-07] MEDS ORDERED: ENOXAPARIN 40 MG/0.4 ML SQ ONE (08:43)
[2021-01-07] MEDS ORDERED: ASCORBIC ACID 500 MG TABLET ONE (08:43)
[2021-01-07] MEDS ORDERED: CLOPIDOGREL 75 MG TABLET ONE (08:43)
[2021-01-07] MEDS ORDERED: PREGABALIN 50 MG CAP ONE (08:51)
[2021-01-07] MEDS ORDERED: FUROSEMIDE 40 MG in NA CHLORIDE 0.9% 50 ML IV SCH (11:00)
--- NOTE | 2021-01-07 11:13 | RAD REPORT ---
EXAM DESCRIPTION: RAD - Chest Single View - 01/07/2021 10:31 am CLINICAL HISTORY: volume overload COMPARISON: CT chest January 05, portable chest January 02 TECHNIQUE: AP portable chest image was obtained 01/07/2021 10:31 am . FINDINGS: Lung volume is slightly improved from the comparison. Left pleural effusion is still prese nt. Right pleural effusion is present but does appear to be slightly improved. Alveolar opacification is present in the mid left lung field. Overall interstitial pattern is prominent. No pneumothorax is identifiable. Cardiac silhouette is enlarged. Delete select IMPRESSION: CHF/volume overload pattern not substantially different from comparison.
--- NOTE | 2021-01-07 16:01 | EKG ---
Test Date: 2021-01-06 Test Time: 10:40:57 Cook Box Filler: MEASUREMENT RESULTS: Intervals: Rate: 60 IA: 180 QRSD: 94 QT: 368 QTc: 368 [place]: P: 28 IA: 180 QRS: 11 T: 17 INTERPRETIVE STATEMENTS: Normal sinus rhythm Nonspecific T wave abnormality Abnormal ECG Compared to ECG 01/02/2021 03:02:55 T-wave abnormality now present Atrial fibrillation no longer present ST (T wave) deviation no longer present Possible ischemia no longer present Electronically Signed On 01-07-21 16:00:03 CDT by Júnior Burns
[2021-01-07] MEDS: OXYBUTYNIN ER 5 MG TAB PO SCH (17:58)
--- NOTE | 2021-01-07 18:15 | P.PN ---
Subjective Date of Service: 01/07/21 Chief Complaint: Respiratory failure Subjective: Improving MS. GARCIA HAS BEEN DYSPNEIC FOR 2 WEEKS. SHE HAS NO CHANGE IN DIET OR MEDS. SHE HAS HAD WATCHMAN PROCEDURE DONE ABOUT 2 MONTHS AGO AND FELT NO CHANGES AFTER THAT.. SHE WAS TAKEN OFF XARELTO AFTER THAT. SHE HAS NO CHEST PAIN. SHE HAS L SIDE EFFUSION THAT HAS BEEN DRAINED AND ABOUT 1 LT FLUID CAME OUT. THIS WAS TRANSUDATIVE FLUID. HER BNP WAS HIGH IN 11K RANGE. SHE GOT LASIX IV BUT LATER DEVELOPED HYPOTENSION AND WAS GIVEN FLUIDS TO CORRECT DEHYDRATION. HER CREATININE THAT HAD RAISED TO 2 CAME DOWN TO 1.5 TODAY. I WAS OUT OF TOWN UNTIL TODAY AND DR. WEN COVERED FOR ME. HER ABG SHOWS PO2 OF 60. FEELS WELL, WEAK, HR IS STILL HIGH AT 110 OR SO. SHE IS STABLE AND JAMAL CARDIOVERTED TODAY. BP IS STABLE. SHE HADCARDIOVERSION IV VERSED MADE HER SLEEP JENNIFER. SHE IS STABLE. SHE IS TO GO TO FLOOR TODAY. Review of Systems 10-point ROS is otherwise unremarkable General: Weakness Respiratory: Shortness of Breath Physical Examination - Vital Signs Temperature: 98.0 F Blood Pressure: 131/51 Pulse: 73 Respirations: 16 Pulse Ox (%): 94 - Physical Exam General: Oriented x3, Mild distress, Obese HEENT: Atraumatic, PERRLA, EOMI Neck: Supple, JVD not distended Respiratory: Clear to auscultation bilaterally, Normal air movement Cardiovascular: Regular rate/rhythm, Normal S1 S2 Gastrointestinal: Normal bowel sounds, No tenderness Musculoskeletal: No tenderness Integumentary: No rashes Neurological: Normal speech, Normal tone, Normal affect Lymphatics: No axilla or inguinal lymphadenopathy - Studies Medications List Reviewed: Yes Assessment And Plan - Current Problems (Diagnosis) (1) Rapid atrial fibrillation Current Visit: Yes Status: Acute Plan: SHE IS ON AMIODARONE AND IT HAS NOT CONTROLLED HR YET. DR. MILLS ON CASE. WATCHMAN WAS DONE IN OCTOBER. DR. MILLS WORKING ON PLAN. BACK IN SINUS RHYTHM. (2) Prerenal azotemia Current Visit: Yes Status: Acute Plan: IMPROVED IN [place] CONSULT DR. APARICIO SHE WILL NEED LASIX DRIP OR SO. RECOVERED. BACK ON IV LASIX BY POURER. IMPROVED BACK TO NORMAL ABLE TO TOLERATE LASIX NOW. I ASKED DR. APARICIO AND TEAM TO MANAGE LASIX SHE GOES INTO [facility]. ORAL MEDS IN AM HOPEFULLY DC HOME. (3) Hypoalbuminemia Current Visit: Yes Status: Acute Plan: THIS CAN BE FROM ACUTE ILLNESS. MEEK INPROCESS. NORMAL ALB CREAT RATIO. (4) Pleural effusion Current Visit: Yes Status: Acute Plan: CHF MAY BE ONE ETIOLOGY BUT SHE MAY HAVE OTHER CAUSES ALSO AGREE WITH CT CHEST WHEN CREATININE COMES DOWN TO LESS THAN 1.5 (5) Respiratory failure Current Visit: Yes Status: Chronic Plan: SHE HAS INTERSTITIAL CHANGES IN LUNGS FOR A LONG DURATION. STABLE IN SYMPTOMS FOR YEARS MOD PULM EDEMA. WATCH LAB DAILY. LASIX IV BID. Qualifiers: Chronicity: unspecified (6) Acute on chronic diastolic (congestive) heart failure Current Visit: Yes Status: Chronic Plan: SHE HAS BEEN ON LASIX FOR ABOUT 8 YEARS. NOW WE ARE HAVING ISSUES OF BALANCE BETWEEN LASIX , HER SYMPTOMS AND RENAL FUNCTION. REPEAT ECHO AND DOPPLER.
--- NOTE | 2021-01-07 18:42 | PN ---
Date of Progress Note: 01/07/2021 Subjective: The patient status post cardioversion yesterday. The patient maintained on Lasix b.i.d. Had good urine output. The patient with cardioversion. Blood pressure was on the lower side. The patient had CT with contrast the day before. Physical Examination: Vital Signs: Blood pressure of 99/80, pulse of 70. The patient had urine output of 4700, negative o f 1800. Chest: Crackles bilateral, more prominent on the left side. Heart: S1, S2. Sinus today. Systolic murmur. Abdomen: Soft, nontender. Extremity: No edema. The patient lying flat, but on nasal cannula. Laboratory Data: WBC 7.7, H and H 10.2/30, platelet 164. Sodium 140, potassium 4, bicarb 34, creati nine 1.3, GFR of 39 and has been declined, calcium 8.8, phosphorus 3.7, magnesium 2.3, albumin 2.3. Current Medications: The patient on include; 1.Flomax. 2.Plavix. 3.Lovenox. 4.Atorvastatin. 5.Lyrica. 6.Lasix IV push b.i.d. 7.Pantoprazole. 8.Levothyroxine. 9.Oxybutynin. Assessment And Plan: 1.Acute kidney injury, multifactorial, secondary to contrast-induced nephropathy/cardiorenal/poor pe rfusion ATN, secondary to atrial fibrillation and low blood pressure. The patient is still over volu me, supported with physical exam and respiratory status for the patient. I am going to go ahead and get chest x-ray for better evaluation for the fluid status. I am going to change the Lasix to piggyb ack to avoid hypotension induced by vasodilation for the Lasix and we will monitor for the patient. If chest x-ray showing a clearance of the over volume status, we will consider to switch her to p.o. if needed. We will monitor the patient for another day to evaluate after 48 hours of the contrast an d we will follow up. 2.Hypertension, currently blood pressure on the lower side. We better keep utilizing the blood pres sure for diuresis. 3.Atrial fibrillation with rapid ventricular response, status post cardioversion. Continue amiodaro ne. Follow up with Cardiology. 4.Congestive heart failure. We will try to establish better volume control with the diuresis. Foll ow up with Cardiology. 5.Hypokalemia, status post supplement, resolved. DESTINY/JERSEY Voice ID: [id number] Report ID: [id number]
--- NOTE | 2021-01-07 19:26 | PN ---
Date of Progress Note: 01/07/2021 Ms. Del Toro is 80. We performed a direct current cardioversion on her on 01/06/2021 because of recur rent atrial fibrillation. We will switch her to p.o. amiodarone. Today, she remained in sinus rivera cardia at a rate of 58. Her vital signs are all stable. She was afebrile. Her last creatinine was 1.19, last hemoglobin is 10.8. Presently on amiodarone p.o., aspirin, Plavix, and Lovenox as well as Lasix and Synthroid. She is on Crestor as well and Lyrica. She is improved and I think she can mov e out of the ICU and hopefully discharge in the near future. We will see her in the office in the ms xt week or 2. She can continue the amiodarone 400 b.i.d. only for 7 days, then switch to 200 daily a fter that. JAMES/JERSEY Voice ID: [id number] Report ID: [id number]
--- NOTE | 2021-01-07 21:13 | OP ---
Date of Procedure: 01/06/2021 Surgeon: Júnior Burns MD Casey Saw Operator: Sierra Seaman. Procedure: Direct current cardioversion. 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 Ms. Del Toro has been in the [facility] for CHF, new onset atrial fibrillation, unresponsive to amiodarone, IV drip. Continues to hav e a rate of 100 to 110 on 1 mg/minute of amiodarone. We decided to do a cardioversion after consenti ng the patient. She was given 5 mg of Versed IV push for total sedation. She received 1 shock of 10 0 joules and converted to sinus rhythm. There were no complications or blood loss. Total conscious sedation was 30 minutes. Final Diagnosis: Successful cardioversion of atrial fibrillation to sinus rhythm. JAMES/JERSEY Voice ID: [id number] Report ID: [id number]
[2021-01-07] MEDS: TAMSULOSIN 0.4 MG SR CAP PO SCH (21:14)
[2021-01-08 04:18] LABS: Absolute Lymphocytes (CBC) 0.6 K/uL (0.7-4.9); Basophils % 0.3 % (0-1.3); Hematocrit 31.5 % (36.0-45.0); Lymphocytes % 6.3 % (15.3-44.8); MPV 9.1 fL (7.6-11.3); RBC Red Blood Cell Count 3.57 M/uL (3.86-4.86)
[2021-01-08 04:31] LABS: Albumin 2.4 g/dL (3.4-5.0); Phosphorus 3.2 mg/dL (2.5-4.9); Potassium 3.9 mmol/L (3.5-5.1)
[2021-01-08] MEDS: LEVOTHYROXINE SOD 0.125 MG TAB PO SCH (05:55)
[2021-01-08] MEDS: LIOTHYRONINE SOD 5 MCG TAB PO SCH (05:55)
[2021-01-08] MEDS: URSODIOL 300 MG PO SCH ×2 (08:00→16:08)
[2021-01-08] MEDS: ROSUVASTATIN 10 MG TAB PO SCH (08:11)
[2021-01-08] MEDS: ASCORBIC ACID 500 MG TABLET PO SCH (08:11)
[2021-01-08] MEDS: PREGABALIN 50 MG CAP PO SCH (08:12)
[2021-01-08] MEDS: PANTOPRAZOLE 40MG TABLET PO SCH (08:12)
[2021-01-08] MEDS: Magnesium Oxide [Magnesium] 250 MG Tablet PO SCH ×2 (08:13→20:00)
[2021-01-08] MEDS: ENOXAPARIN 40 MG/0.4 ML SQ SCH ×2 (08:13→20:00)
[2021-01-08] MEDS: AMIODARONE HCL 200 MG TAB PO SCH ×2 (08:13→20:00)
[2021-01-08] MEDS: CLOPIDOGREL 75 MG TABLET PO SCH (08:23)
[2021-01-08] MEDS ORDERED: POTASSIUM CL SA 10 MEQ TAB PO ONE (09:00)
[2021-01-08] MEDS ORDERED: FUROSEMIDE 40 MG in NA CHLORIDE 0.9% 50 ML IV SCH (09:00)
--- NOTE | 2021-01-08 13:03 | P.PN ---
Subjective Date of Service: 01/08/21 Chief Complaint: Respiratory failure Subjective: Improving MS. GARCIA HAS BEEN DYSPNEIC FOR 2 WEEKS. SHE HAS NO CHANGE IN DIET OR MEDS. SHE HAS HAD WATCHMAN PROCEDURE DONE ABOUT 2 MONTHS AGO AND FELT NO CHANGES AFTER THAT.. SHE WAS TAKEN OFF XARELTO AFTER THAT. SHE HAS NO CHEST PAIN. SHE HAS L SIDE EFFUSION THAT HAS BEEN DRAINED AND ABOUT 1 LT FLUID CAME OUT. THIS WAS TRANSUDATIVE FLUID. HER BNP WAS HIGH IN 11K RANGE. SHE GOT LASIX IV BUT LATER DEVELOPED HYPOTENSION AND WAS GIVEN FLUIDS TO CORRECT DEHYDRATION. HER CREATININE THAT HAD RAISED TO 2 CAME DOWN TO 1.5 TODAY. I WAS OUT OF TOWN UNTIL TODAY AND DR. WEN COVERED FOR ME. HER ABG SHOWS PO2 OF 60. BREATHING IS GOO SHE TRIED TO GET UP AND GOT DIZZY. NEEDS PT AND REHAB POSSIBLE. Review of Systems 10-point ROS is otherwise unremarkable General: Weakness Physical Examination - Vital Signs Temperature: 98.0 F Blood Pressure: 128/61 Pulse: 92 Respirations: 18 Pulse Ox (%): 93 - Physical Exam General: Alert, In no apparent distress, Oriented x3 HEENT: Atraumatic, PERRLA, EOMI Neck: Supple, JVD not distended Respiratory: Clear to auscultation bilaterally, Normal air movement Cardiovascular: Regular rate/rhythm, Normal S1 S2 Gastrointestinal: Normal bowel sounds, No tenderness Musculoskeletal: No tenderness Integumentary: No rashes Neurological: Normal speech, Normal tone, Normal affect Lymphatics: No axilla or inguinal lymphadenopathy - Studies Medications List Reviewed: Yes Assessment And Plan - Current Problems (Diagnosis) (1) Rapid atrial fibrillation Current Visit: Yes Status: Acute Plan: SHE IS ON AMIODARONE AND IT HAS NOT CONTROLLED HR YET. DR. MILLS ON CASE. WATCHMAN WAS DONE IN OCTOBER. DR. MILLS WORKING ON PLAN. BACK IN SINUS RHYTHM. (2) Prerenal azotemia Current Visit: Yes Status: Acute Plan: IMPROVED IN [place] CONSULT DR. APARICIO SHE WILL NEED LASIX DRIP OR SO. RECOVERED. BACK ON IV LASIX BY WINDOW ASSEMBLER. IMPROVED BACK TO NORMAL ABLE TO TOLERATE LASIX NOW. I ASKED DR. APARICIO AND TEAM TO MANAGE LASIX SHE GOES INTO [facility]. ORAL MEDS IN AM HOPEFULLY DC HOME. (3) Hypoalbuminemia Current Visit: Yes Status: Acute Plan: THIS CAN BE FROM ACUTE ILLNESS. MEEK INPROCESS. NORMAL ALB CREAT RATIO. (4) Pleural effusion Current Visit: Yes Status: Acute Plan: CHF MAY BE ONE ETIOLOGY BUT SHE MAY HAVE OTHER CAUSES ALSO AGREE WITH CT CHEST WHEN CREATININE COMES DOWN TO LESS THAN 1.5 (5) Respiratory failure Current Visit: Yes Status: Chronic Plan: SHE HAS INTERSTITIAL CHANGES IN LUNGS FOR A LONG DURATION. STABLE IN SYMPTOMS FOR YEARS MOD PULM EDEMA. WATCH LAB DAILY. LASIX IV BID. Qualifiers: Chronicity: unspecified (6) Acute on chronic diastolic (congestive) heart failure Current Visit: Yes Status: Chronic Plan: SHE HAS BEEN ON LASIX FOR ABOUT 8 YEARS. NOW WE ARE HAVING ISSUES OF BALANCE BETWEEN LASIX , HER SYMPTOMS AND RENAL FUNCTION. REPEAT ECHO AND DOPPLER. (7) Vertigo Current Visit: Yes Status: Acute Plan: TRIAL OF MECLIZINE.
[2021-01-08] MEDS: MECLIZINE HCL 12.5 MG TAB PO SCH ×2 (14:00→20:00)
--- NOTE | 2021-01-08 15:49 | PN ---
Date of Progress Note: 01/08/2021 Subjective: The patient was admitted with acute kidney injury secondary to cardiorenal, over volume. The patient was started on diuresis. Had AFib with RVR, started on amiodarone. The patient is fee ling better. Physical Examination: Vital Signs: Blood pressure 128/60, pulse of 92, afebrile. The patient had good urine output of 200 0, negative of 800. Chest: Decreased air entry bilateral base. Faint rales on the left. Heart: S1, S2. Regular. Abdomen: Soft, nontender. Extremities: No edema. Neuro: Alert. No focality. Laboratory Data: WBC 10, H and H 10.9/31.5. Sodium 142, potassium 3.9, bicarb 33, BUN 26, creatinin e down to 1, GFR of 52, calcium 8.5, phosphorus 3.2, albumin 2.4, corrected calcium is 9.7. Current Medications: The patient on include; 1.Flomax. 2.Plavix. 3.Lovenox. 4.Amiodarone. 5.Lasix 40 daily. 6.Tylenol. 7.Pantoprazole. 8.Magnesium oxide. 9.Oxybutynin. Assessment And Plan: 1.Acute kidney injury secondary to cardiorenal, stable, recovering very well. Looked to me still on the over volume side. The patient responding to current diuresis. I am going to switch the patient to oral diuresis to facilitate the discharge planning and we will follow up the patient, switch to 4 0 b.i.d. 2.Hypertension, controlled, optimal. Continue to utilize the blood pressure for more diuresis. We will use oral to avoid any hypotension. 3.Obstructive uropathy. Continue Flomax. 4.Congestive heart failure. We will try to establish better volume control with the diuresis. 5.Atrial fibrillation with rapid ventricular response as by Cardiology. DESTINY/JERSEY Voice ID: [id number] Report ID: [id number]
[2021-01-08] MEDS: FUROSEMIDE 40 MG TABLET PO SCH (16:23)
[2021-01-08] MEDS: OXYBUTYNIN ER 5 MG TAB PO SCH (16:23)
[2021-01-08] MEDS: TAMSULOSIN 0.4 MG SR CAP PO SCH (20:00)
[2021-01-09 05:04] LABS: Albumin 2.3 g/dL (3.4-5.0); Phosphorus 2.8 mg/dL (2.5-4.9); Potassium 3.8 mmol/L (3.5-5.1)
[2021-01-09] MEDS ORDERED: POTASSIUM CL SA 10 MEQ TAB PO ONE (05:07)
[2021-01-09] MEDS: LEVOTHYROXINE SOD 0.125 MG TAB PO SCH (05:33)
[2021-01-09] MEDS: LIOTHYRONINE SOD 5 MCG TAB PO SCH (05:33)
--- NOTE | 2021-01-09 06:59 | P.PN ---
Subjective Date of Service: 01/09/21 Chief Complaint: Respiratory failure Subjective: Improving Physical Examination - Vital Signs Temperature: 97.7 F Blood Pressure: 142/65 Pulse: 79 Respirations: 18 Pulse Ox (%): 92 - Physical Exam General: Other (appears as her stated age) HEENT: Atraumatic, Normocephalic Neck: Supple Respiratory: Other (symmetric chest expansion) Cardiovascular: No rubs, No murmurs Gastrointestinal: Soft and benign, Non-distended Musculoskeletal: No clubbing Integumentary: Other (normal temperature) Neurological: Normal speech, Normal tone - Studies Medications List Reviewed: Yes Assessment And Plan - Plan 1. Acute kidney injury secondary to cardiorenal/rapid A. fib. Improved. Continue Lasix 40 mg by mouth twice a day. Monitor renal panel. 2. Hypertension, controlled. Continue current BP med regimen. 3. Obstructive uropathy. Continue Flomax. 4. Congestive heart failure. TTE unremarkable except for left atrial enlargement. chest CT showed no evidence of pulmonary hypertension. Cont lasix as above. 5. Alkalosis. Advised on liberal by mouth fluid intake unless she becomes hyponatremic. 6. Atrial fibrillation with rapid ventricular response - received amiodarone. Subsequently underwent cardioversion. Heart rate now controlled. further management per cardiology. 7. Dispo. DC to acute rehab.
[2021-01-09] MEDS: CLOPIDOGREL 75 MG TABLET PO SCH (07:40)
[2021-01-09] MEDS: PREGABALIN 50 MG CAP PO SCH (07:41)
[2021-01-09] MEDS: FUROSEMIDE 40 MG TABLET PO SCH (07:41)
[2021-01-09] MEDS: ASCORBIC ACID 500 MG TABLET PO SCH (07:41)
[2021-01-09] MEDS: AMIODARONE HCL 200 MG TAB PO SCH (07:41)
[2021-01-09] MEDS: PANTOPRAZOLE 40MG TABLET PO SCH (07:42)
[2021-01-09] MEDS: ROSUVASTATIN 10 MG TAB PO SCH (07:42)
[2021-01-09] MEDS: MECLIZINE HCL 12.5 MG TAB PO SCH ×2 (07:42→13:28)
[2021-01-09] MEDS: Magnesium Oxide [Magnesium] 250 MG Tablet PO SCH (07:43)
[2021-01-09] MEDS: URSODIOL 300 MG PO SCH (07:43)
[2021-01-09] MEDS: ENOXAPARIN 40 MG/0.4 ML SQ SCH (07:43)
[2021-01-09 11:32] VITALS: O2SAT 96
--- NOTE | 2021-01-09 13:33 | P.DS ---
Admission Date: 01/01/21 Discharge Date: 01/09/21 Disposition: ROUTINE DISCHARGE Discharge Condition: FAIR Reason for Admission: Respiratory failure - Problems (1) Rapid atrial fibrillation Current Visit: Yes Status: Acute (2) Prerenal azotemia Current Visit: Yes Status: Acute (3) Hypoalbuminemia Current Visit: Yes Status: Acute (4) Pleural effusion Current Visit: Yes Status: Acute (5) Respiratory failure Current Visit: Yes Status: Chronic Qualifiers: Chronicity: unspecified (6) Acute on chronic diastolic (congestive) heart failure Current Visit: Yes Status: Chronic (7) Vertigo Current Visit: Yes Status: Acute Hospital Course: MS. GARCIA HAS CHF, DIASTOLIC CHRONIC AND ACUTE, SHE HAS A FIB. SHE HAS HAD CHF EXACERBATION AND WITH HIGH DOSE OF LASIX SHE BECAME AZOTEMIC LATER HAD LASIX DRIP TO HELP HER SYMPTOMS. SHE IS VERY WEAK, SHE NEEDS PT. SHE HAD A FIB THAT NEEDED AMIODARONE AND LATER CARDIOVERSION TO CONTROL RATE. SHE HAS HAD WATCHMAN PROCEDURE FOR A FIB INSTEAD OF XARELTO. SHE IS STABLE TO GO TO REHAB. Vital Signs/Physical Exam: Temp Pulse Resp BP Pulse Ox 97.1 F 88 146 H 118/56 L 96 01/09/21 11:31 01/09/21 11:31 01/09/21 11:31 01/09/21 11:31 01/09/21 11:31 Laboratory Data at Discharge: WBC 10.00 K/uL (4.3-10.9) D 01/08/21 03:07 Hgb 10.9 g/dL (12.0-15.0) L 01/08/21 03:07 Hct 31.5 % (36.0-45.0) L 01/08/21 03:07 Plt Count 178 K/uL (152-406) 01/08/21 03:07 PT 13.7 SECONDS (9.2-12.8) H 01/01/21 13:59 INR 1.16 01/01/21 13:59 Sodium 143 mmol/L (136-145) 01/09/21 04:01 Potassium 3.8 mmol/L (3.5-5.1) 01/09/21 04:01 BUN 24 mg/dL (7-18) H 01/09/21 04:01 Creatinine 1.05 mg/dL (0.55-1.3) 01/09/21 04:01 Glucose 91 mg/dL (74-106) 01/09/21 04:01 Phosphorus 2.8 mg/dL (2.5-4.9) 01/09/21 04:01 Magnesium 2.3 mg/dL (1.8-2.4) 01/07/21 04:49 Total Bilirubin 0.8 mg/dL (0.2-1.0) 01/02/21 05:35 AST 13 U/L (15-37) L 01/02/21 05:35 ALT 15 U/L (12-78) 01/02/21 05:35 Alkaline Phosphatase 113 U/L (45-117) 01/02/21 05:35 Troponin I < 0.02 ng/mL (0.0-0.045) 01/04/21 05:19 Home Medications: Oxybutynin Chloride [Oxybutynin Chloride ER] 15 mg PO DAILY 04/27/12 Rabeprazole Sodium [Aciphex] 20 mg PO DAILY 04/27/12 Febuxostat [Uloric] 80 mg PO DAILY 03/16/13 Magnesium Oxide [Magnesium] 500 mg PO BID 07/10/14 Pregabalin [Lyrica] 150 mg PO DAILY 10/22/14 Aspirin [Aspirin EC 81 MG] 81 mg PO DAILY 01/01/21 Clopidogrel Bisulfate [Plavix] 75 mg PO DAILY 01/01/21 Diphenhydramine HCl [Benadryl Allergy] 25 mg PO DAILY PRN 01/01/21 Iron 1 tab PO TID 01/01/21 Levothyroxine [Synthroid*] 125 mcg PO DAILY 01/01/21 Liothyronine Sodium [Cytomel] 5 mcg PO DAILY 01/01/21 Rosuvastatin [Crestor*] 5 mg PO DAILY 01/01/21 Zinc 100 mg PO DAILY 01/01/21 ursodioL [Ursodiol] 300 mg PO BID 01/01/21 Ascorbic Acid [Vitamin C] 500 mg PO DAILY 01/02/21 Furosemide [Lasix*] 40 mg PO BIDL tab 01/09/21 Meclizine HCl [Antivert*] 25 mg PO TID tab 01/09/21 Followup: Eddie Solis MD [Primary Care Provider] -
[2021-01-10 05:53] VITALS: BP 142/65; TEMP 97.7
== END 2021-01-09 14:17 | DRG 291 ==
LOC: ER 13:21 → ERHOLD 15:53 → 2ND 19:56 → ERHOLD 01-02 16:56 → 4TH 01-07 11:00
PROVIDERS: ADMIT Internal Medicine; ATTEND Internal Medicine
PROC: 5A09457 Assistance with Respiratory Ventilation, 24-96 Consecutive Hours, Continuous Positive Airway Pressure (ICD-10-PCS; principal; 2021-01-01)
PROC: 0W9B3ZZ Drainage of Left Pleural Cavity, Percutaneous Approach (ICD-10-PCS; 2021-01-02)
PROC: 5A2204Z Restoration of Cardiac Rhythm, Single (ICD-10-PCS; 2021-01-06)
DX: I13.0 Hypertensive heart and chronic kidney disease with heart failure and stage 1 through stage 4 chronic kidney disease, or unspecified chronic kidney disease (principal); J96.01 Acute respiratory failure with hypoxia; I50.33 Acute on chronic diastolic (congestive) heart failure; J96.02 Acute respiratory failure with hypercapnia; N17.0 Acute kidney failure with tubular necrosis; J90 Pleural effusion, not elsewhere classified; E87.3 Alkalosis; N18.31 Chronic kidney disease, stage 3a; E88.09 Other disorders of plasma-protein metabolism, not elsewhere classified; I48.0 Paroxysmal atrial fibrillation; E78.5 Hyperlipidemia, unspecified; M10.9 Gout, unspecified; E03.9 Hypothyroidism, unspecified; R79.89 Other specified abnormal findings of blood chemistry; K21.9 Gastro-esophageal reflux disease without esophagitis; Z79.01 Long term (current) use of anticoagulants; Z79.899 Other long term (current) drug therapy; Z90.710 Acquired absence of both cervix and uterus; Z79.82 Long term (current) use of aspirin; Z79.890 Hormone replacement therapy; Z96.611 Presence of right artificial shoulder joint; Z79.02 Long term (current) use of antithrombotics/antiplatelets; Z96.652 Presence of left artificial knee joint; Z20.822 Contact with and (suspected) exposure to COVID-19; N32.81 Overactive bladder; I95.9 Hypotension, unspecified; E86.0 Dehydration; Z68.34 Body mass index [BMI] 34.0-34.9, adult; E66.9 Obesity, unspecified; E87.6 Hypokalemia; R42 Dizziness and giddiness; N13.9 Obstructive and reflux uropathy, unspecified
CPT/HCPCS: 32555; 36415; 71045; 71275; 76604; 76770; 80048; 80053; 80069; 80076; 81003; 81015; 82533; 82550; 82570; 82607; 82805; 83735; 83880; 83935; 84100; 84156; 84300; 84439; 84443; 84484; 85025; 85610; 87070; 87086; 87088; 88108; 88305; 89050; 93005; 93306; 94660; 94760; 97110; 97116; 97161; 97530; 99285; J0282; J1650; J1940; J2250; J2270; J7030; J7050; J7060; Q9967; U0003

== ENCOUNTER 2021-01-08 10:23 | Inpatient (IN) | payer OTHER, BC ==
--- NOTE | 2021-01-09 13:49 | R.PREADM ---
PRE-ADMISSION SCREENING FORM SCREENING DATE AND TIME 01/09/2021 12:04 (CDT) ANTICIPATED REHAB ADMISSION DATE 01/11/2021 REFERRING FACILITY [facility] REFERRAL DATE AND TIME 01/09/2021 12:05 (CDT) REFERRAL ROOM# 427 ACUTE ADMIT DATE 01/09/2021 Previous Rehabilitation(s): No. ACUTE MULESER/DC DRUG INSPECTOR Dotty ATTENDING PHYSICIAN LIS THOMPSON REFERRING PHYSICIAN LIS THOMPSON REHAB FACILITY [facility] CLINICAL LIAISON Yamel Acosta PHYSICIAN REVIEWER Dr. Wilfred Hilliard M.D. MR# [id number] NAME GRACIELA DEL TORO AD[address]ESS [address] [facility] [id number] DATE OF 1940 AGE 80 SSN# [id number] GENDER female MARITAL STATUS ADMIT FROM 02 - [facility] PRE-HOSPITAL LIVING SETTING 01 - Home (private home/apt. board/care, assisted living, correction, transitional living) HOME TYPE AND DETAILS Type of home: single family house # of levels in the residence: 1 # of steps within the residence: 0 # of steps to enter the residence: 0 PRE-HOSPITAL LIVING WITH Alone FAMILY SUPPORT No PRIMARY FAMILY CONTACT NAME ALBERTO RENEE PRIMARY FAMILY CONTACT PHONE PHONE PRIMARY FAMILY CONTACT ON ADM.? no IS PRIMARY FAMILY CONTACT AUTH. REP.? no 1ST EMERGENCY CONTACT ALBERTO RENEE 1ST CONTACT PHONE PHONE 1ST CONTACT ON ADM. no IS 1ST CONTACT AUTH. REP.? no PHONE 2ND CONTACT ON ADM.? no PATIENT EMPLOYMENT STATUS Retired (for age) PATIENT EMPLOYER No Employer PAYOR INFORMATION: 1ST PAYOR NAME MEDICARE 1ST PAYOR PHONE 1ST PAYOR INJURY/ILLNESS DUE TO ACCIDENT? No ANOTHER REPUBLICAN RESPONSIBLE? No PRIMARY REHAB/ACUTE DIAGNOSIS: ACUTE CHF ONSET DATE 01/01/2021 REHAB IMPAIRMENT CATEGORY (JOSE L): 14 Cardiac does NOT meet 60% rule PRIMARY DIAGNOSIS-RELATED SURGERIES: direct current cardioversion SUMMARY OF ACUTE HOSPITALIZATION: Pt. is a 80 yo Right-handed female. On 01/01/2021 she was admitted to [facility] with diagnosis ACUTE CHF. Her impairment category is Cardiac 09 - Cardiac Disorders (09). Pre-morbidly, Pt. was independent/mod-I in Safety Awareness, Sphincter Control, Social Cognition, Keily f-Care, and Communication; and she had good Locomotion and Endurance. Currently, she has deficits of Locomotion, Balance, Safety Awareness, Sphincter Control, Transfers Co ntrol, Endurance, and Self-Care. Pt. is now referred to [facility] for acute in-patient rehabilitation in order to maximize patient's functional independence in activities of daily living, strength, ROM, and mobi lity. Patient has realistic goal of being discharged at assistance level 7-Ind to reside at Home with Pt s elfRica Del Toro is a 80 year old female that lives at home independently. She has the help from her grandsons that stays with her from time to time. She came into the hospital after seeing the cardiology physican at the office and was found to have a pleural effusion on the left side. In the emergency room patient was a moderate to a large pleural effusion on the left side. It appeard to be mobile. She was addmitted to be scheduled for thoracentesis. However her heart rate is controlled with medication. She had a direct current cardioversion procedure done . She has a histo ry of AFIB, cataracts, lymphedema, neuropathy, bilateral carpal tunnel, sarcoidosis, melanoma, right shoulder replacement, knee repalcement and has had a hysterectomy. Shes in need to get back to her normal independency. She has always done all of her own house keeping. She has been working hard with hospital PT/ OT. The patient would most definitely benefit from acute inpatient rehab, to get back stronger for her independency at home. Her stay would for acute inpatient rehab for approximately 7-10 days in order to return to her prior level of care. She is now being transferred to [facility] rehabilitation and is medically stable with relatively stable labs. She is now medically stable but in need of 24 hour nursing, doctor supervision and oversight while receiving expected to participate in 3 hours of therapy a day/15 hours per week and receive care with intensive interdisciplinary approach. COVID-19 screening performed; spoke with patient via phone. Patient denies new onset of fever, cough, difficulty breathing, sore throat, body aches and non-allergy nasal congestion in the past 24 hours. Patient denies travel outside of [place] in the past 14 days. Patient denies any contact with someone who has a confirmed diagnosis of or is under investigation for COVID-19 in the past 14 days. Patient has been tested negative for COVID- 19. PAST MEDICAL HISTORY AFIB CATARACT LYMPHEDMA NEUROPATHY BILATERAL CARPAL TUNNEL SARCOIDOSIS MELANOMA PAST SURGICAL HISTORY: RIGHT SHOULDER REPLACEMENT L KNEE REPLACEMENT HYSTERECTOMY MEDICATION ALLERGIES: No Known Drug Allergies (NKDA) ENVIRONMENTAL ALLERGIES: - Substance Allergies None Known - Other Allergies None Known CODE STATUS: Full code WEIGHT/HEIGHT/BMI: WEIGHT 213 lbs HEIGHT 5' 6" BMI 34.4 DIET: - Diet Type Regular - Diet - Solid Texture Regular - Diet - Liquid Texture Regular - Tube Feed N/A REVIEW OF SYSTEMS: - Gen Alert and awake Lying in bed No apparent distress Oriented to: person, time, and place - Vital Signs Temperature: 97 F SBP/DBP: 121/67 Pulse: 121 Resp: 20 Vital signs stable, afebrile - CVS RRR VITAL SIGNS Temperature: 97 F SBP/DBP: 121/67 Pulse: 121 Resp: 20 Vital signs stable, afebrile MEDICATIONS/TREATMENT: Other- See attached MAR (Medication Administration Record). CURRENT SPHINCTER CONTROL: Pre-hospital bladder status: unspecified # of bladder accidents in the last 7 days prior to screenin Pre-hospital bowel status: unspecified # of bowel accidents in the last 7 days prior to screenin Last Bowel Movement Date: 01/09/2021 CURRENT LOCOMOTION STATUS: distance walked 10 feet ROLLING WALKER DETAILED CURRENT FUNCTIONAL STATUS: - Bladder accident frequency: 7-Ind - No accidents in the past 7 days - Bowel accident frequency: 7-Ind - No accidents in the past 7 days - Walking score based on distance walked: 0(N/A) score based on distance walked: 1(<=50ft) - Wheelchair score based on distance traveled: 0(N/A) QI SCORES: - Self-Care A. Eating 03-Partial/moderate assistance B. Oral hygiene 03-Partial/moderate assistance C. Toileting hygiene 03-Partial/moderate assistance E. Shower/bathe self 03-Partial/moderate assistance F. Upper body dressing 03-Partial/moderate assistance G. Lower body dressing 03-Partial/moderate assistance H. Putting on/taking off footwear 88-Not attempted due to medical condition or safety concerns - Mobility A. Roll left and right 03-Partial/moderate assistance B. Sit to lying 03-Partial/moderate assistance C. Lying to sitting on side of bed 03-Partial/moderate assistance D. Sit to stand 03-Partial/moderate assistance E. Chair/rqo-di-pubzv transfer 03-Partial/moderate assistance F. Toilet transfer 03-Partial/moderate assistance G. Car transfer 88-Not attempted due to medical condition or safety concerns I. Walk 10 feet 03-Partial/moderate assistance J. Walk 50 feet with two turns 88-Not attempted due to medical condition or safety concerns K. Walk 150 feet 88-Not attempted due to medical condition or safety concerns L. Walking 10 feet on uneven surfaces 88-Not attempted due to medical condition or safety concerns M. 1 step (curb) 88-Not attempted due to medical condition or safety concerns N. 4 steps 88-Not attempted due to medical condition or safety concerns O. 12 steps 88-Not attempted due to medical condition or safety concerns P. Picking up object 88-Not attempted due to medical condition or safety concerns R. Wheel 50 feet with two turns 88-Not attempted due to medical condition or safety concerns S. Wheel 150 feet 88-Not attempted due to medical condition or safety concerns - Bladder and Bowel Bladder continence Bowel continence - Endurance Fair - Balance Fair - Safety Awareness Fair CURRENT FUNC. DEFICITS: Self-Care, Mobility, Endurance, Balance, and Safety Awareness CURRENT / PREVIOUS ASSISTIVE DEVICES: Rolling Walker THERAPY NOTES FROM ACUTE CARE: Attached. SPECIAL NEEDS: - Safety Concerns Skin breakdown precautions needed due to skin breakdown risk PATIENT NEEDS ACTIVE AND ONGOING THERAPEUTIC INTERVENTION OF MULTIPLE THERAPY DISCIPLINES, INCLUDING: - Dietary and Nutrition Adequate Nutrition. Nutritional Education. Nutritional Supplements. PATIENT NEEDS CLOSE MEDICAL SUPERVISION BY A REHABILITATION PHYSICIAN FOR: Coordination of Treatment Team Post-Op Complications PATIENT REQUIRES 24X7 REHAB NURSING FOR MEDICAL AND FUNCTIONAL MGT. OF THE FOLLOWING DEFICITS: Disease Management Medication Management Patient/Family Education Providing Safe Environment PATIENT REQUIRES INTENSIVE, COORDINATED INTERDISCIPLINARY APPROACH TO REHAB: Arranging Home Equipment/Services Discharge Planning Family Intervention/Training Electrical Technician/Case Management PATIENT REHAB POTENTIAL: Estephanie DEL TORO is able and expected to receive 3 hours of individualized therapy daily on at least 5 of e very 7 days Estephanie DEL TORO's prognosis for significant practical improvement within a reasonable period of time appea rs Good Expected level of measurable improvement will be of a practical value to Estephanie [place] functional capa city or adaptations to impairments Has a viable Discharge Plan Medically appropriate; condition is sufficiently stable to participate in intensive rehab program DISCHARGE PLAN: - Estimated Length of Stay (days) 10. - Consensus on plan Discharge plan has been discussed with primary caregiver. Patient/Family is in agreement with the lisa n. Primary caregiver is in agreement with the plan. - Patient/Family Goals Return home independently. - Planned Living Setting Upon Discharge Home, to live alone. Transitional Living. Primary caregiver: Pt self. RECOMMENDED CARE LEVEL: IRF RECOMMENDATION DETAILS: Recommended Admission to Comprehensive Rehabilitation Program to Increase Functional [place] SCREENER'S COMPLETENESS CONFIRMATION: - Screening Confirmation The patient data collection on this preadmission screening form is finished PHYSICIANS REVIEW AND ADMISSION DETERMINATION Admit - Based on my review of the Pre-Admission Screening results, in my medical judgment and experie nce, I concur with the findings and recommend admission to [facility], as this patient requires an IRF level of care. SIGNATURE PANEL: Section Housekeeper - [electronically] signed by Yamel Acosta on 01/09/2021 at 13:06 (CDT) Clinical Liaison - [electronically] signed by Deandra Hurt OT on 01/09/2021 at 13:38 (CDT) Physician Reviewer - [electronically] signed by Dr. Wilfred Hilliard M.D. on 01/09/2021 at 13:48 (CDT )
[2021-01-09] MEDS ORDERED: DIPHENHYDRAMINE 25 MG TAB/CAP PO PRN (15:17)
[2021-01-09] MEDS ORDERED: DOCUSATE NA/SENNA CONC 1 TAB PO PRN (15:44)
[2021-01-09] MEDS ORDERED: ACETAMINOPHEN 500 MG TAB PO PRN (15:45)
[2021-01-09] MEDS ORDERED: TRAMADOL HCL 50 MG TAB PO PRN (15:45)
[2021-01-09] MEDS ORDERED: ursodioL 300 MG CAP PO SCH (17:00)
[2021-01-09] MEDS: FUROSEMIDE 40 MG TABLET PO SCH (17:07)
[2021-01-09] MEDS: ursodioL 300 MG CAP PO SCH (17:08)
--- NOTE | 2021-01-09 17:51 | R.HP ---
HISTORY AND PHYSICAL FACILITY: [facility] ENCOUNTER DATE AND TIME: 01/09/2021 17:42 (CDT) MR#: [id number] NAME AUBRIE GARCIA ADDRESS: [address] [place] [address]: [place] [id number] PHONE: DATE OF : 1940 AGE: 80 SSN# [id number] GENDER: Female MARITAL STATUS PRE-HOSPITAL LIVING SETTING 01 - Home (private home/apt. board/care, assisted living, detention, transitional living) PRE-HOSPITAL LIVING WITH Alone ENCOUNTER PHYSICIAN: Dr. Wilfred Hilliard M.D. REFERRING DOCTOR: LIS THOMPSON DATE OF ADMISSION: 01/09/2021 17:42 (CDT) REFERRING FACILITY [facility] HOME TYPE AND DETAILS: Type of home: single family house # of levels in the residence: 1 # of steps within the residence: 0 # of steps to enter the residence: 0 ONSET DATE: 01/01/2021 PRIMARY DIAGNOSIS-RELATED SURGERIES: direct current cardioversion HISTORY OF PRESENT ILLNESS (HPI): Pt. is a 80 yo Right-handed female. On 01/01/2021 she was admitted to [facility] with diagnosis ACUTE CHF. Her impairment category is Cardiac 09 - Cardiac Disorders (09). Pre-morbidly, Pt. was independent/mod-I in Safety Awareness, Sphincter Control, Social Cognition, Keily f-Care, and Communication; and she had good Locomotion and Endurance. Currently, she has deficits of Locomotion, Balance, Safety Awareness, Sphincter Control, Transfers Co ntrol, Endurance, and Self-Care. Pt. is now referred to [facility] for acute in-patient rehabilitation in order to maximize patient's functional independence in activities of daily living, strength, ROM, and mobi lity. Patient has realistic goal of being discharged at assistance level 7-Ind to reside at Home with Pt s elfRica Garcia is a 80 year old female that lives at home independently. She has the help from her grandsons that stays with her from time to time. She came into the hospital after seeing the cardiology physican at the office and was found to have a pleural effusion on the left side. In the emergency room patient was a moderate to a large pleural effusion on the left side. It appeard to be mobile. She was addmitted to be scheduled for thoracentesis. However her heart rate is controlled with medication. She had a direct current cardioversion procedure done . She has a histo ry of AFIB, cataracts, lymphedema, neuropathy, bilateral carpal tunnel, sarcoidosis, melanoma, right shoulder replacement, knee repalcement and has had a hysterectomy. Shes in need to get back to her normal independency. She has always done all of her own house keeping. She has been working hard with hospital PT/ OT. The patient would most definitely benefit from acute inpatient rehab, to get back stronger for her independency at home. Her stay would for acute inpatient rehab for approximately 7-10 days in order to return to her prior level of care. She is now being transferred to [facility] Inpatient rehabilitation and is medically stable with relatively stable labs. She is now medically stable but in need of 24 hour nursing, doctor supervision and oversight while receiving expected to participate in 3 hours of therapy a day/15 hours per week and receive care with intensive interdisciplinary approach. COVID-19 screening performed; spoke with patient via phone. Patient denies new onset of fever, cough, difficulty breathing, sore throat, body aches and non-allergy nasal congestion in the past 24 hours. Patient denies travel outside of [place] in the past 14 days. Patient denies any contact with someone who has a confirmed diagnosis of or is under investigation for COVID-19 in the past 14 days. Patient has been tested negative for COVID- 19. MEDICATION ALLERGIES: No Known Drug Allergies (NKDA) ENVIRONMENTAL ALLERGIES: - Substance Allergies None Known - Other Allergies None Known PAST MEDICAL HISTORY: AFIB CATARACT LYMPHEDMA NEUROPATHY BILATERAL CARPAL TUNNEL SARCOIDOSIS MELANOMA PAST SURGICAL HISTORY: RIGHT SHOULDER REPLACEMENT L KNEE REPLACEMENT HYSTERECTOMY SOCIAL HISTORY: - Home Living Alone REVIEW OF SYSTEMS: - Gen No Chills Fatigue No Fever - Eyes No Double Vision No itchiness - ENMT No Difficulty Swallowing - CVS Chest Discomfort No Chest Pain No Fatigue No Weight Gain - Resp No Cough Shortness of Breath - GI Continent No Abdominal Pain No Constipation No Diarrhea - Continent No Kidney Pain No Painful Urination No Urinary Urgency - MSK No Joint Pain No Muscle Cramps Stiffness - Skin No Itching No Rash No Suspicious Lesions - Neuro Coordination Difficulty No Difficulty with Concentration No Memory Loss No Seizures Weakness - Psych No Anxiety No Depression No HIV Exposure No Persistent Infections No Seasonal Allergies - Endo No Cold/Heat Intolerance No Excessive Hunger No Excessive Thirst No Excessive Urination PHYSICAL EXAM - Gen Alert and awake Lying in bed No apparent distress Oriented to: person, time, and place - Skin No breakdown Atraumatic - Eyes No abnormalities - Neck No abnormalities - CVS RRR - Chest Upper airway congestion. - Abd + bowel sounds - GI Soft Deferred - No abnormalities - Ext Mild bilateral lower extremity edema. - MSK 4+/5 weakness in both lower extremities. - Neuro No focal deficits - Psych No abnormalities VITAL SIGNS Temperature: 97.2 F SBP/DBP: 138/46 Pulse: 69 Resp: 16 NURSING: - Shower allowing shower ACTIVITIES OOB only with supervision QI SCORES: - Self-Care A. Eating 03-Partial/moderate assistance B. Oral hygiene 03-Partial/moderate assistance C. Toileting hygiene 03-Partial/moderate assistance E. Shower/bathe self 03-Partial/moderate assistance F. Upper body dressing 03-Partial/moderate assistance G. Lower body dressing 03-Partial/moderate assistance H. Putting on/taking off footwear 88-Not attempted due to medical condition or safety concerns - Mobility A. Roll left and right 03-Partial/moderate assistance B. Sit to lying 03-Partial/moderate assistance C. Lying to sitting on side of bed 03-Partial/moderate assistance D. Sit to stand 03-Partial/moderate assistance E. Chair/hkg-lp-iqmpo transfer 03-Partial/moderate assistance F. Toilet transfer 03-Partial/moderate assistance G. Car transfer 88-Not attempted due to medical condition or safety concerns I. Walk 10 feet 03-Partial/moderate assistance J. Walk 50 feet with two turns 88-Not attempted due to medical condition or safety concerns K. Walk 150 feet 88-Not attempted due to medical condition or safety concerns L. Walking 10 feet on uneven surfaces 88-Not attempted due to medical condition or safety concerns M. 1 step (curb) 88-Not attempted due to medical condition or safety concerns N. 4 steps 88-Not attempted due to medical condition or safety concerns O. 12 steps 88-Not attempted due to medical condition or safety concerns P. Picking up object 88-Not attempted due to medical condition or safety concerns R. Wheel 50 feet with two turns 88-Not attempted due to medical condition or safety concerns S. Wheel 150 feet 88-Not attempted due to medical condition or safety concerns - Bladder and Bowel Bladder continence Bowel continence - Endurance Fair - Balance Fair - Safety Awareness Fair CURRENT [facility]. DEFICITS: Self-Care, Mobility, Endurance, Balance, and Safety Awareness MEDICATIONS: - Other See attached MAR (Medication Administration Record) ASSESSMENT: Pt. is a 80 yo Right-handed female.On 01/01/2021 she was admitted to [facility] with hetal gnosis ACUTE CHF.Her impairment category is Cardiac 09 - Cardiac Disorders ().Pre-morbidly, Pt. wa s independent/mod-I in Safety Awareness, Sphincter Control, Social Cognition, Self-Care, and Communic ation; and she had good Locomotion and Endurance.Currently, she has deficits of Locomotion, Balance, Safety Awareness, Sphincter Control, Transfers Control, Endurance, and Self-Care.Pt. is now referred to [facility] for acute in-patient rehabilitation in order to maximize patient 's functional independence in activities of daily living, strength, ROM, and mobility.- Rehab Goal Patient has realistic goal of being discharged at assistance level 7-Ind to reside at Home with Pt s elf. Aubrie Garcia is a 80 year old female that lives at home independently. She has the help from her grandsons that stays with her from time to time. She came into the hospital after seeing the cardiology physican at the office and was found to have a pleural effusion on the left side. In the emergency room patient was a moderate to a large pleural effusion on the left side. It appeard to be mobile. She was addmitted to be scheduled for thoracentesis. However her heart rate is controlled with medication. She had a direct current cardioversion procedure done . She has a histo ry of AFIB, cataracts, lymphedema, neuropathy, bilateral carpal tunnel, sarcoidosis, melanoma, right shoulder replacement, knee repalcement and has had a hysterectomy. Shes in need to get back to her normal independency. She has always done all of her own house keeping. She has been working hard with hospital PT/ OT. The patient would most definitely benefit from acute inpatient rehab, to get back stronger for her independency at home. Her stay would for acute inpatient rehab for approximately 7-10 days in order to return to her prior level of care. She is now being transferred to [facility] rehabilitation and is medically stable with relatively stable labs. She is now medically stable but in need of 24 hour nursing, doctor supervision and oversight while receiving expected to participate in 3 hours of therapy a day/15 hours per week and receive care with intensive interdisciplinary approach. COVID-19 screening performed; spoke with patient via phone. Patient denies new onset of fever, cough, difficulty breathing, sore throat, body aches and non-allergy nasal congestion in the past 24 hours. Patient denies travel outside of [place] in the past 14 days. Patient denies any contact with someone who has a confirmed diagnosis of or is under investigation for COVID-19 in the past 14 days. Patient has been tested negative for COVID- 19.REHAB PLAN: - Physical Therapy Gait dysfunction - to improve, our physical therapists will perform initial evaluation of pt's status upon admission and devise an individualized program for Gait Training, and Wheel Chair mobility Inability to transfer - to improve, our physical therapists will perform initial evaluation of pt's s tatus upon admission and devise an individualized program for Bed mobility Need for home safety evaluation - to improve, our physical therapists will perform initial evaluation of pt's status upon admission and devise an individualized program for Home Evaluation Need in caregiver upon discharge - to improve, our physical therapists will perform initial evaluatio n of pt's status upon admission and devise an individualized program for Caregiver Training New precaution - to improve, our physical therapists will perform initial evaluation of pt's status u amberly admission and devise an individualized program for Patient precaution education Edema - to improve, our physical therapists will perform initial evaluation of pt's status upon admi ssion and devise an individualized program for Elevation Training, and Lymphedema Therapy Poor balance - to improve, our physical therapists will perform initial evaluation of pt's status upo n admission and devise an individualized program for Balance Training Poor endurance - to improve, our physical therapists will perform initial evaluation of pt's status u amberly admission and devise an individualized program for Endurance Training Weakness - to improve, our physical therapists will perform initial evaluation of pt's status upon ad mission and devise an individualized program for Aquatic Therapy, Neuromuscular Reeducation, and Stre ngthening Achieving independence - to improve, our physical therapists will perform initial evaluation of pt's status upon admission and devise an individualized program for Community Reintegration Activities - Occupational Therapy ADL deficits - to improve, our occupation therapists will perform initial evaluation of pt's status u amberly admission and devise an individualized program for Bathing, Bed mobility, Community Reintegration , Cooking, Dressing, Eating, Fine Motor Skills, Grooming, Homemaking, Kitchen Mobility, Laundry, Kasey ent Education, Safety Awareness, Splinting - Positioning, Transfers(Toilet, Tub, Shower), and Wheel C hair Management Need for career based intervention coordinator - to improve, our occupation therapists will perform initial evaluation of pt's s tatus upon admission and devise an individualized program for Caregiver Training Weakness - to improve, our occupation therapists will perform initial evaluation of pt's status upon admission and devise an individualized program for Aquatic Therapy, Balance, Endurance, UE ROM, and U E strengthening MEDICAL PLAN: - Diet Type Start Regular - Diet - Liquid Texture Start Regular - Tube Feed Start N/A - Other See attached MAR (Medication Administration Record) - Diet - Solid Texture Regular - Shower shower DISCHARGE PLAN: - Estimated Length of Stay (days) 10. - Consensus on plan Discharge plan has been discussed with primary caregiver. Patient/Family is in agreement with the lisa n. Primary caregiver is in agreement with the plan. - Patient/Family Goals Return home independently. - Planned Living Setting Upon Discharge Home, to live alone. Transitional Living. Primary caregiver: Pt self. SIGNATURE PANEL: (CDT)
--- NOTE | 2021-01-09 17:53 | PAPE ---
POST ADMISSION PHYSICIAN EVALUATION PATIENT: [facility] MR# [id number] REFERRING DOCTOR LIS THOMPSON EVALUATION DATE AND TIME 01/09/2021 17:50 (CDT) NAME GRACIELA GARCIA DATE OF 1940 AGE 80 PHONE SSN# [id number] GENDER female EVALUATING PHYSICIAN Dr. Wilfred Hilliard M.D. ADMISSION DIAGNOSIS: ACUTE CHF ONSET DATE 01/01/2021 POST-ADMISSION FUNCTIONAL/MEDICAL STATUS: - Bladder Same accident frequency: 7-Ind - No accidents in the past 7 days - Bowel Same accident frequency: 7-Ind - No accidents in the past 7 days - Walking Same score based on distance walked: 0(N/A) Same score based on distance walked: 1(<=50ft) - Wheelchair Same score based on distance traveled: 0(N/A) STATUS CHANGE EVALUATION: No change in Functional or Medical Status is identified compared with Pre-Admission screening. PATIENT NEEDS CLOSE MEDICAL SUPERVISION BY A REHABILITATION PHYSICIAN FOR: Coordination of Treatment Team Post-Op Complications PATIENT REQUIRES 24X7 REHAB NURSING FOR MEDICAL AND FUNCTIONAL MGT. OF THE FOLLOWING DEFICITS: Disease Management Medication Management Patient/Family Education Providing Safe Environment PATIENT REQUIRES INTENSIVE, COORDINATED INTERDISCIPLINARY APPROACH TO REHAB: Arranging Home Equipment/Services Discharge Planning Family Intervention/Training [employer] Clerk/Case Management LIST OF IDENTIFIED AND POTENTIAL PROBLEMS: Alteration in leisure activities Bladder, Incontinence Bowel, Incontinence Infection, Actual or Potential Mobility Impaired Pain, Alteration in Comfort Self Care Deficit Skin Integrity, Actual or Potential Urinary Tract Infection (UTI), Actual or Potential PATIENT COULD BE AT RISK FOR COMPLICATIONS FROM ADVERSE MEDICAL CONDITIONS DUE TO HIS/HER COMORBIDITI ES AND THE RIGORS OF THE INTENSIVE REHABILLITATION PROGRAM. METHODS OR INTERVENTIONS TO AVOID COMPLIC ATIONS INCLUDE: - Infection Clinical staff to assess and manage the signs and symptoms of infection including fever, redness, war mth, etc. - Urinary Tract Infection - Falls Patient will be evaluated for Fall Precautions and will be placed on Fall Precautions as indicated pe r protocol. - Skin Breakdown Nursing will assess skin daily using assessment tool and will place on Skin Breakdown Precautions as indicated per protocol. - Pain Clinical staff may employ non-medication methods such as massage, distraction, decrease stimulus, etc . as needed. Clinical staff will assess patient's pain level every shift per protocol to assess and e nsure pain management effectiveness. Medications will be given and the pain level re-assessed. PRELIMINARY PLAN OF CARE: - Physical Therapy Patient needs Physical Therapy for a daily minimum of 1.5 hours at least 5 out of 7 days, to improve: Mobility, Strengthening, Transfers, Stretching, ROM, Endurance, Ability to manage stairs, Gait, and Balance. - Speech Therapy Patient needs Speech Therapy for a daily minimum of 0.5 hours at least 5 out of 7 days, to improve: S wallowing, Cognition, Language Skills, and Compensatory Strategies. - Rehabilitation Nursing Patient requires 24x7 Rehabilitation Nursing for: Pain Issues, Identifying and preventing risk factor s, Monitoring and reporting current medical conditions, Assisting with ambulation and transfer, Geovani ting with all ADL-s, Teaching patients about disease process and medications, Family teaching, Provid ing safe environment, Bowel and Bladder Issues, Skin Integrity, and Medication Management. Patient needs [employer] Clerk and/or Case Management for: Discharge Planning, Arranging Home Equipmen t or Services, and Family Interventions. - Dietary and Nutrition Services Patient needs Dietary and Nutrition Services for: Adequate Nutrition, Nutritional Supplements, and Nu tritional Education. - Occupational Therapy Patient needs Occupational Therapy for a daily minimum of 1.5 hours at least 5 out of 7 days, to impr ove Activities of Daily Living, including: Eating, Grooming, Bathing, Dressing, Toileting, Toilet Tra nsfers, Community Reintegration, Higher functional activities, Adaptive Equipment, Splinting, Househo ld Tasks, and Other activities as determined. QI SCORES: - Self-Care A. Eating 03-Partial/moderate assistance B. Oral hygiene 03-Partial/moderate assistance C. Toileting hygiene 03-Partial/moderate assistance E. Shower/bathe self 03-Partial/moderate assistance F. Upper body dressing 03-Partial/moderate assistance G. Lower body dressing 03-Partial/moderate assistance H. Putting on/taking off footwear 88-Not attempted due to medical condition or safety concerns - Mobility A. Roll left and right 03-Partial/moderate assistance B. Sit to lying 03-Partial/moderate assistance C. Lying to sitting on side of bed 03-Partial/moderate assistance D. Sit to stand 03-Partial/moderate assistance E. Chair/zwn-jd-geabj transfer 03-Partial/moderate assistance F. Toilet transfer 03-Partial/moderate assistance G. Car transfer 88-Not attempted due to medical condition or safety concerns I. Walk 10 feet 03-Partial/moderate assistance J. Walk 50 feet with two turns 88-Not attempted due to medical condition or safety concerns K. Walk 150 feet 88-Not attempted due to medical condition or safety concerns L. Walking 10 feet on uneven surfaces 88-Not attempted due to medical condition or safety concerns M. 1 step (curb) 88-Not attempted due to medical condition or safety concerns N. 4 steps 88-Not attempted due to medical condition or safety concerns O. 12 steps 88-Not attempted due to medical condition or safety concerns P. Picking up object 88-Not attempted due to medical condition or safety concerns R. Wheel 50 feet with two turns 88-Not attempted due to medical condition or safety concerns S. Wheel 150 feet 88-Not attempted due to medical condition or safety concerns - Bladder and Bowel Bladder continence Bowel continence - Endurance Fair - Balance Fair - Safety Awareness Fair POTENTIAL FUNCTIONAL GOALS FOR PATIENT TO ACHIEVE BY DISCHARGE: - Safety Precaution Patient will remain free from falls or injury at time of discharge. - Bed Mobility Patient will perform bed mobility at 4-Jesus level of assistance. - Transfers Patient will complete transfers from bed to chair at 4-Jesus level of assistance. - Mobility Patient will ambulate 150 ft with 4-Jesus level of assistance with RW. PATIENT REHAB POTENTIAL Estephanie GARCIA is able and expected to receive 3 hours of individualized therapy daily on at least 5 of e very 7 days Estephanie GARCIA's prognosis for significant practical improvement within a reasonable period of time appea rs Good Expected level of measurable improvement will be of a practical value to Estephanie GARCIA's functional capa city or adaptations to impairments Has a viable Discharge Plan Medically appropriate; condition is sufficiently stable to participate in intensive rehab program DISCHARGE PLAN: - Estimated Length of Stay (days) 10. - Consensus on plan Discharge plan has been discussed with primary caregiver. Patient/Family is in agreement with the lisa n. Primary caregiver is in agreement with the plan. - Patient/Family Goals Return home independently. - Planned Living Setting Upon Discharge Home, to live alone. Transitional Living. Primary caregiver: Pt self. CONCLUSION ON REHABILITATION NECESSITY: I have evaluated patient's pre-admission functional status and, comparing it to the patient's post-ad mission functional status now, I conclude that the pre-admission assessment was accurate. Patient's c ondition on admission supports the medical necessity of admission to [facility]. It is safe to proceed with patient's therapy program. SIGNATURE PANEL: (CDT)
[2021-01-09] MEDS: MELATONIN 3 MG TABLET PO PRN (20:50)
[2021-01-09] MEDS: MECLIZINE HCL 12.5 MG TAB PO SCH (20:50)
[2021-01-09] MEDS: MAGNESIUM OXIDE 400 MG TAB PO SCH (20:50)
[2021-01-09] MEDS ORDERED: IRON PO SCH (21:00)
[2021-01-10 00:06] LABS: Urine Appearance CLEAR (Clear); Urine Bilirubin NEGATIVE (Negative); Urine Blood NEGATIVE (Negative); Urine Color YELLOW (Yellow); Urine Glucose NEGATIVE (Negative); Urine Protein NEGATIVE (Negative); Urine pH 7.5 (5.0-7.0)
[2021-01-10 00:58] LABS: Urine Amorphous Sediment 2+ /HPF (NONE SEEN); Urine Bacteria >50 /HPF (<20); Urine Mucus 2+ /HPF (NONE SEEN); Urine RBC <5 /HPF (NONE SEEN)
[2021-01-10] MEDS: ENOXAPARIN 40 MG/0.4 ML SQ SCH (06:30)
[2021-01-10] MEDS: LEVOTHYROXINE SOD 0.125 MG TAB PO SCH (06:31)
[2021-01-10] MEDS: LIOTHYRONINE SOD 5 MCG TAB PO SCH (06:31)
[2021-01-10 06:43] LABS: Absolute Lymphocytes (CBC) 0.9 K/uL (0.7-4.9); Basophils % 0.6 % (0-1.3); Hematocrit 34.8 % (36.0-45.0); MPV 8.8 fL (7.6-11.3); RBC Red Blood Cell Count 3.88 M/uL (3.86-4.86)
[2021-01-10 07:01] LABS: Albumin 2.4 g/dL (3.4-5.0); Magnesium 2.2 mg/dL (1.8-2.4); Potassium 4.1 mmol/L (3.5-5.1); Prealbumin 10.3 mg/dL (20-40)
[2021-01-10] MEDS ORDERED: ZINC 100 MG PO SCH (08:00)
[2021-01-10] MEDS: PANTOPRAZOLE 40MG TABLET PO SCH (08:36)
[2021-01-10] MEDS: ursodioL 300 MG CAP PO SCH ×2 (08:37→17:14)
[2021-01-10] MEDS: OXYBUTYNIN ER 5 MG TAB PO SCH (08:37)
[2021-01-10] MEDS: ASCORBIC ACID 500 MG TABLET PO SCH (08:37)
[2021-01-10] MEDS: MECLIZINE HCL 12.5 MG TAB PO SCH ×3 (08:37→19:19)
[2021-01-10] MEDS: MAGNESIUM OXIDE 400 MG TAB PO SCH ×2 (08:38→19:19)
[2021-01-10] MEDS: ROSUVASTATIN 10 MG TAB PO SCH (08:38)
[2021-01-10] MEDS: FUROSEMIDE 40 MG TABLET PO SCH ×2 (08:38→17:13)
[2021-01-10] MEDS: PREGABALIN 150 MG CAP PO SCH (08:38)
[2021-01-10] MEDS: ASPIRIN EC 81 MG TAB PO SCH (08:38)
[2021-01-10 15:01] VITALS: BMI 34.9
[2021-01-10] MEDS: FORMULATION-R RECTAL 57GM PR PRN (15:46)
[2021-01-10] MEDS: MELATONIN 3 MG TABLET PO PRN (19:19)
[2021-01-10] MEDS: CRANBERRY FRUIT EXTRACT 200 MG CAP PO SCH (19:19)
[2021-01-11] MEDS: LEVOTHYROXINE SOD 0.125 MG TAB PO SCH (06:24)
[2021-01-11] MEDS: LIOTHYRONINE SOD 5 MCG TAB PO SCH (06:24)
[2021-01-11] MEDS: PANTOPRAZOLE 40MG TABLET PO SCH (07:00)
[2021-01-11] MEDS: ENOXAPARIN 40 MG/0.4 ML SQ SCH (07:01)
[2021-01-11] MEDS: MECLIZINE HCL 12.5 MG TAB PO SCH ×3 (08:59→19:24)
[2021-01-11] MEDS: ursodioL 300 MG CAP PO SCH ×2 (08:59→17:13)
[2021-01-11] MEDS: OXYBUTYNIN ER 5 MG TAB PO SCH (09:00)
[2021-01-11] MEDS: ASCORBIC ACID 500 MG TABLET PO SCH (09:00)
[2021-01-11] MEDS: PREGABALIN 150 MG CAP PO SCH (09:00)
[2021-01-11] MEDS: CRANBERRY FRUIT EXTRACT 200 MG CAP PO SCH ×2 (09:01→19:24)
[2021-01-11] MEDS: MAGNESIUM OXIDE 400 MG TAB PO SCH ×2 (09:01→19:24)
[2021-01-11] MEDS: ROSUVASTATIN 10 MG TAB PO SCH (09:01)
[2021-01-11] MEDS: FUROSEMIDE 40 MG TABLET PO SCH ×2 (09:02→17:11)
[2021-01-11] MEDS: ASPIRIN EC 81 MG TAB PO SCH (09:03)
[2021-01-11 09:11] VITALS: TEMP 97.3
[2021-01-11 09:18] VITALS: O2SAT 95
[2021-01-11] MEDS: FORMULATION-R RECTAL 57GM PR PRN (14:14)
[2021-01-11 17:13] VITALS: BP 116/62
== END 2021-01-11 20:58 | disposition home or self-care (01) | DRG 293 ==
LOC: 5TH 01-09 14:23
PROVIDERS: ADMIT Psychiatry & Neurology Neurology with Special Qualifications in Child Neurology; ATTEND Psychiatry & Neurology Neurology with Special Qualifications in Child Neurology
DX: I50.9 Heart failure, unspecified (principal); I48.91 Unspecified atrial fibrillation; Z96.611 Presence of right artificial shoulder joint; Z96.652 Presence of left artificial knee joint; Z85.820 Personal history of malignant melanoma of skin
CPT/HCPCS: 36415; 80048; 81001; 82040; 83735; 84134; 85025; 87086; 87088; 93005; 94010; 97110; 97116; 97163; 97530; J1650

== ENCOUNTER 2021-01-11 21:21 | Inpatient (IN) | payer OTHER, BC ==
[2021-01-11] MEDS ORDERED: SODIUM CHLORIDE 0.9% 10ML INJ IV PRN (22:01)
[2021-01-11] MEDS ORDERED: METOPROLOL TARTRATE 5 MG/5 ML INJ IV STA (22:39)
[2021-01-11] MEDS ORDERED: AMIODARONE HCL 200 MG TAB PO SCH (22:40)
[2021-01-11] MEDS: METOPROLOL TAR 25 MG TAB PO SCH (23:03)
[2021-01-12 04:07] LABS: Absolute Lymphocytes (CBC) 1.3 K/uL (0.7-4.9); Basophils % 0.5 % (0-1.3); Hematocrit 32.2 % (36.0-45.0); Lymphocytes % 12.7 % (15.3-44.8); MPV 8.6 fL (7.6-11.3); RBC Red Blood Cell Count 3.62 M/uL (3.86-4.86)
[2021-01-12 04:17] LABS: Magnesium 2.1 mg/dL (1.8-2.4)
[2021-01-12 04:52] VITALS: BMI 34.3
[2021-01-12] MEDS ORDERED: PREGABALIN 150 MG CAP PO SCH (09:00)
[2021-01-12] MEDS: HOME MED 1 EA UNK (Iron [Iron] 18 MG Tablet) PO SCH ×2 (09:00→13:55)
[2021-01-12] MEDS: SODIUM CHLORIDE 0.9% 10ML INJ IV SCH ×2 (09:00→21:10)
[2021-01-12] MEDS ORDERED: FEBUXOSTAT 80 MG PO SCH (09:00)
[2021-01-12] MEDS: PREGABALIN 75 MG CAP PO SCH (09:00)
[2021-01-12] MEDS ORDERED: ursodioL 300 MG CAP PO SCH (09:00)
[2021-01-12] MEDS: URSODIOL PO SCH ×2 (09:00→21:09)
[2021-01-12] MEDS ORDERED: FUROSEMIDE 40 MG TABLET PO SCH (09:00)
[2021-01-12] MEDS: AMIODARONE HCL 200 MG TAB PO SCH ×2 (09:33→21:03)
[2021-01-12] MEDS: MECLIZINE HCL 12.5 MG TAB PO SCH ×3 (09:33→21:03)
[2021-01-12] MEDS: METOPROLOL TAR 25 MG TAB PO SCH ×3 (09:33→21:00)
[2021-01-12] MEDS: CLOPIDOGREL 75 MG TABLET PO SCH (09:33)
[2021-01-12] MEDS: ROSUVASTATIN 10 MG TAB PO SCH (09:34)
[2021-01-12] MEDS: MAGNESIUM OXIDE 400 MG TAB PO SCH ×2 (09:34→21:03)
[2021-01-12] MEDS: ASPIRIN EC 81 MG TAB PO SCH (09:34)
[2021-01-12] MEDS: LIOTHYRONINE SOD 5 MCG TAB PO SCH (09:37)
[2021-01-12] MEDS: OXYBUTYNIN ER 5 MG TAB PO SCH ×2 (09:37→16:08)
[2021-01-12] MEDS: LEVOTHYROXINE SOD 0.125 MG TAB PO SCH (09:43)
[2021-01-12] MEDS ORDERED: NA CHLORIDE 0.9% 500 ML IV ONE (11:37)
[2021-01-12] MEDS ORDERED: NA CHLORIDE 0.9% 500 ML ONE (11:55)
[2021-01-12] MEDS ORDERED: NA CHLORIDE 0.9% 1,000 ML IV SCH ×3 (13:00→21:33)
[2021-01-12] MEDS: GUAIFENESIN/DM 5 ML UCUP PO PRN (18:39)
--- NOTE | 2021-01-12 21:38 | P.HP ---
Certification for Inpatient Patient admitted to: Inpatient With expected LOS: >2 Midnights Practitioner: I am a practitioner with admitting privileges, knowledge of patient current condition, hospital course, and medical plan of care. Services: Services provided to patient in accordance with Admission requirements found in Title 42 Section 412.3 of the Code of Federal Regulations Patient History Date of Service: 01/12/21 Reason for admission: RECURRENT A FIB History of Present Illness: MS. GARCIA WAS TRANSFERRED BACK TO SECOND FLOOR BY DR MILLS AFTER I FOUND HER IRREGULAR IN HEART EXAM IN REHAB FLOOR. 12 LEAD EKG CONFIRMED A FIB AT ABOUT 100 TO 120 PE RMIN DESPITE BEING ON AMIODARONE. SHE ALREADY HAS HAD WATCHMAN PROCEDURE. SHE WAS IN REHAB FOR WEAKNESS WITH CHF EPISODE. AFTER BEING ON THE FLOOR HER BP DROPPED TO 77 SYSTOLIC THIS AM. SHE WAS GIVEN IV BOLUS AND BP CAME UP TO 120 SYSTOLIC AND DOWN TO 90 NOW WITH METOPROLOL TID GIVEN FOR A FIB BY DR BONILLA. Allergies No Known Allergies Allergy (Verified 01/01/21 20:48) Home medications list reviewed: Yes Home Medications: Oxybutynin Chloride [Oxybutynin Chloride ER] 15 mg PO DAILY 04/27/12 Rabeprazole Sodium [Aciphex] 20 mg PO DAILY 04/27/12 Febuxostat [Uloric] 80 mg PO DAILY 03/16/13 Magnesium Oxide [Magnesium] 500 mg PO BID 07/10/14 Pregabalin [Lyrica] 150 mg PO DAILY 10/22/14 Aspirin [Aspirin EC 81 MG] 81 mg PO DAILY 01/01/21 Clopidogrel Bisulfate [Plavix] 75 mg PO DAILY 01/01/21 Diphenhydramine HCl [Benadryl Allergy] 25 mg PO DAILY PRN 01/01/21 Iron 1 tab PO TID 01/01/21 Levothyroxine [Synthroid*] 125 mcg PO DAILY 01/01/21 Liothyronine Sodium [Cytomel] 5 mcg PO DAILY 01/01/21 Rosuvastatin [Crestor*] 5 mg PO DAILY 01/01/21 Zinc 100 mg PO DAILY 01/01/21 ursodioL [Ursodiol] 300 mg PO BID 01/01/21 Ascorbic Acid [Vitamin C] 500 mg PO DAILY 01/02/21 Furosemide [Lasix*] 40 mg PO BIDL tab 01/09/21 Meclizine HCl [Antivert*] 25 mg PO TID tab 01/09/21 - Past Medical/Surgical History Diabetic: No -: Afib -: Cataracts -: Lymphedema -: Neuropathy -: Bilateral Carpal Tunnel -: Sarcoidosis -: Melanoma -: Right Shoulder Replacement -: L Knee replacment -: Hysterectomy - Family History Mother -: Other (see notes) Notes: CHF Father -: Other (see notes) Notes: CHF - Social History Smoking Status: Never smoker Alcohol use: No CD- Drugs: No Caffeine use: No Review of Systems 10-point ROS is otherwise unremarkable General: Weakness Physical Examination - Vital Signs Temperature: 97.5 F Blood Pressure: 94/55 Pulse: 109 Respirations: 18 Pulse Ox (%): 98 - Physical Exam General: Oriented x3, Mild distress HEENT: Atraumatic, PERRLA, Mucous membr. moist/pink, EOMI, Sclerae nonicteric Neck: Supple, 2+ carotid pulse no bruit, No LAD, Without JVD or thyroid abnormality Cardiovascular: Irregular heart rate/rhythm Gastrointestinal: Normal bowel sounds, No tenderness Musculoskeletal: No tenderness Integumentary: No rashes Neurological: Normal gait, Normal speech, Normal strength at 5/5 x4 extr, Normal tone, Normal affect Lymphatics: No axilla or inguinal lymphadenopathy - Studies Laboratory Data (last 24 hrs) 01/12/21 03:25: Sodium 141, Potassium 4.0, BUN 31 H, Creatinine 1.40 H, Glucose 97, Magnesium 2.1 01/12/21 03:25: WBC 10.50, Hgb 10.7 L, Hct 32.2 L, Plt Count 290 D Assessment and Plan - Problems (Diagnosis) (1) Hypotension Current Visit: Yes Status: Acute Plan: RELATED LASIX GIVEN FOR CHF ON RECENT ADMISSION. STOP LASIX. SIGNS OF DEHYDRATION ON C7. GENTLE IV HYDRATION. DAILY LAB. (2) Rapid atrial fibrillation Current Visit: No Status: Chronic Plan: SHE IS ON HIGHER DOSE OF AMIODARONE NOW. SHE ALREADY HAS HAD WATCHMAN PROCEDURE AND WILL NOT NEED ELIQUIS. METOPROLOL TID AND WILL WATCH BP. - Advance Directives Does patient have a Living Will: Yes Does patient have a Durable POA for Healthcare: Yes
[2021-01-12 21:57] LABS: MPV 8.5 fL (7.6-11.3)
[2021-01-12 22:00] LABS: Platelet Estimate ND
[2021-01-13] MEDS: PANTOPRAZOLE 40MG TABLET PO SCH (05:47)
[2021-01-13] MEDS: LIOTHYRONINE SOD 5 MCG TAB PO SCH (05:48)
--- NOTE | 2021-01-13 07:15 | RAD REPORT ---
EXAM DESCRIPTION: RAD - Chest Single View - 01/13/2021 6:21 am CLINICAL HISTORY: chf COMPARISON: Portable January 07 TECHNIQUE: AP portable chest image was obtained 01/13/2021 6:21 am . FINDINGS: Lung volumes remain low. Interstitial opacification has improved but not resolved. Left pl eural effusion is still evident. Cardiac silhouette is enlarged with continued vascular engorgement. No enlarging pleural effusion. There is no pneumothorax. No acute bony abnormality seen. No acute aor tic findings suspected. IMPRESSION: CHF/volume overload pattern shows only minimal improvement since January 07.
[2021-01-13 08:56] LABS: Basophils % 0.9 % (0-1.3); Lymphocytes % 9.9 % (15.3-44.8); MPV 8.3 fL (7.6-11.3); RBC Red Blood Cell Count 3.49 M/uL (3.86-4.86)
[2021-01-13 08:58] LABS: Magnesium 2.3 mg/dL (1.8-2.4)
[2021-01-13] MEDS: METOPROLOL TAR 25 MG TAB PO SCH ×3 (09:00→21:00)
[2021-01-13] MEDS: FEBUXOSTAT 80 MG PO SCH (09:00)
[2021-01-13] MEDS: PREGABALIN 75 MG CAP PO SCH (09:00)
[2021-01-13] MEDS: SODIUM CHLORIDE 0.9% 10ML INJ IV SCH ×2 (09:00→21:00)
[2021-01-13] MEDS: ENOXAPARIN 40 MG/0.4 ML SQ SCH (09:14)
[2021-01-13] MEDS: LEVOTHYROXINE SOD 0.125 MG TAB PO SCH (09:14)
[2021-01-13] MEDS: ROSUVASTATIN 10 MG TAB PO SCH (09:15)
[2021-01-13] MEDS: MAGNESIUM OXIDE 400 MG TAB PO SCH ×2 (09:15→21:50)
[2021-01-13] MEDS: CLOPIDOGREL 75 MG TABLET PO SCH (09:16)
[2021-01-13] MEDS: MECLIZINE HCL 12.5 MG TAB PO SCH ×3 (09:16→21:49)
[2021-01-13] MEDS: ASPIRIN EC 81 MG TAB PO SCH (09:16)
[2021-01-13] MEDS: AMIODARONE HCL 200 MG TAB PO SCH ×2 (09:17→21:50)
[2021-01-13] MEDS: URSODIOL PO SCH ×2 (09:17→21:47)
--- NOTE | 2021-01-13 13:07 | P.PN ---
Subjective Date of Service: 01/13/21 Chief Complaint: RECURRENT A FIB Subjective: Improving MS. GARCIA WAS TRANSFERRED TO 4TH FLOOR A FIB RETURNED. LATER SHE HAD LOW BP DESPITE REDUCTION IN LASIX. HER CREAT IS HIGHER SUGGESTIVE OF PRERENAL STATUS. SHE ALSO HAS CHF ON CXR. I TALKED TO DR. BONILLA SHE MAY NEED FURTHER MEEK AT [facility] WITH RECURRENT AFIB AND UNCONTROLLED CHF. SHE IS COMFORTABLE BUT NOT ABLE TO AMBULATE WITHOUT TACHYCARDIA AND WEAKNESS. Review of Systems 10-point ROS is otherwise unremarkable General: Weakness Physical Examination - Vital Signs Temperature: 97 F Blood Pressure: 123/58 Pulse: 86 Respirations: 16 Pulse Ox (%): 99 - Physical Exam General: Mild distress, Moderate distress, Obese HEENT: Atraumatic, PERRLA, EOMI Neck: Supple, JVD not distended Respiratory: Clear to auscultation bilaterally, Normal air movement Cardiovascular: Regular rate/rhythm, Normal S1 S2 Gastrointestinal: Normal bowel sounds, No tenderness Musculoskeletal: No tenderness Integumentary: No rashes Neurological: Normal speech, Normal tone, Normal affect Lymphatics: No axilla or inguinal lymphadenopathy - Studies Laboratory Data (last 24 hrs) 01/13/21 : Sodium Cancelled, Potassium Cancelled, BUN Cancelled, Creatinine Cancelled, Glucose Cancelled, Magnesium Cancelled 01/13/21 : WBC Cancelled, Hgb Cancelled, Hct Cancelled, Plt Count Cancelled 01/13/21 08:37: WBC 10.00, Hgb 10.5 L, Hct 31.0 L, Plt Count 285 01/13/21 08:37: Sodium 141, Potassium 4.0, BUN 38 H, Creatinine 1.42 H, Glucose 92, Magnesium 2.3 01/12/21 21:33: Plt Count 272 Medications List Reviewed: Yes Assessment And Plan - Current Problems (Diagnosis) (1) Hypotension Current Visit: Yes Status: Acute Plan: RELATED LASIX GIVEN FOR CHF ON RECENT ADMISSION. STOP LASIX. SIGNS OF DEHYDRATION ON C7. GENTLE IV HYDRATION. DAILY LAB. CONSULT NEPHROLOGY TEAM AGAIN SHE IS NOT ABLE TO TOLERATE DIURETICS AND HAS CHF ON CXR. LASIX DRIP MAY BE ANSWER BUT IN A BOTTOM FILLER SMALL DOSE LASIX MAY WORK BUT STILL SHE GETS DEHYDRATED. (2) Rapid atrial fibrillation Current Visit: No Status: Chronic Plan: SHE IS ON HIGHER DOSE OF AMIODARONE NOW. SHE ALREADY HAS HAD WATCHMAN PROCEDURE AND WILL NOT NEED ELIQUIS. METOPROLOL TID AND WILL WATCH BP.
[2021-01-13] MEDS: GUAIFENESIN/DM 5 ML UCUP PO PRN (16:09)
[2021-01-13] MEDS: ACETAMINOPHEN 500 MG TAB PO PRN ×2 (16:09→21:48)
[2021-01-13] MEDS: OXYBUTYNIN ER 5 MG TAB PO SCH (16:10)
[2021-01-14] MEDS: ACETAMINOPHEN 500 MG TAB PO PRN ×2 (03:05→19:13)
[2021-01-14] MEDS: DIPHENHYDRAMINE 25 MG TAB/CAP PO PRN ×2 (03:06→19:13)
[2021-01-14 04:13] LABS: Absolute Lymphocytes (CBC) 0.7 K/uL (0.7-4.9); Basophils % 0.5 % (0-1.3); Hematocrit 31.8 % (36.0-45.0); Lymphocytes % 5.9 % (15.3-44.8); MPV 8.6 fL (7.6-11.3); RBC Red Blood Cell Count 3.57 M/uL (3.86-4.86)
[2021-01-14 04:15] LABS: Potassium 4.3 mmol/L (3.5-5.1)
[2021-01-14] MEDS: PANTOPRAZOLE 40MG TABLET PO SCH (05:51)
[2021-01-14] MEDS: LIOTHYRONINE SOD 5 MCG TAB PO SCH (05:51)
[2021-01-14] MEDS: FEBUXOSTAT 80 MG PO SCH (08:11)
[2021-01-14] MEDS: LIDOCAINE 4% PATCH TOP SCH (08:25)
[2021-01-14] MEDS: ENOXAPARIN 40 MG/0.4 ML SQ SCH (08:25)
[2021-01-14] MEDS: ASPIRIN EC 81 MG TAB PO SCH (08:26)
[2021-01-14] MEDS: MAGNESIUM OXIDE 400 MG TAB PO SCH ×2 (08:26→19:13)
[2021-01-14] MEDS: MECLIZINE HCL 12.5 MG TAB PO SCH ×3 (08:27→19:12)
[2021-01-14] MEDS: LEVOTHYROXINE SOD 0.125 MG TAB PO SCH (08:27)
[2021-01-14] MEDS: CLOPIDOGREL 75 MG TABLET PO SCH (08:28)
[2021-01-14] MEDS: ROSUVASTATIN 10 MG TAB PO SCH (08:28)
[2021-01-14] MEDS: AMIODARONE HCL 200 MG TAB PO SCH (08:29)
[2021-01-14] MEDS: URSODIOL PO SCH ×2 (08:30→19:14)
[2021-01-14] MEDS: METOPROLOL TAR 25 MG TAB PO SCH ×3 (08:30→19:15)
[2021-01-14] MEDS: PREGABALIN 75 MG CAP PO SCH (08:32)
[2021-01-14] MEDS: SODIUM CHLORIDE 0.9% 10ML INJ IV SCH ×2 (08:32→19:16)
--- NOTE | 2021-01-14 11:57 | CON ---
Date of Consultation: 01/14/2021 Reason For Consultation: Elevated BUN and creatinine, fluid management. History Of Present Illness: This is a pleasant 80-year-old female, well known to me from the previou s admission with significant past medical history of hypertension, hyperlipidemia, gout, diabetes com plicated with neuropathy, AFib, the patient recently admitted to the hospital with over volume, AFib with RVR and CHF exacerbation back early in December, transferred to rehab. Apparently in the rehab, the patient develop hypotension and AFib with RVR again. For that reason, the patient was transferred b [facility]. The patient on the previous hospitalization had acute kidney injury secondary to cardiorenal. Workup at that time; her creatinine jumped to 2 upon discharge to the rehab. Creatinine was down to 1.1 with GFR up from 26 to 52. The patient's ultrasound at that time, normal size kidney 10 cm with echogenicity. At this time, the patient's creatinine jumped to 1.4 with GFR of 36. Today creatinine down to 1.2, GFR of 40. The patient is still on nasal cannula. No fever or chills. On reviewing t chart, the patient had low blood pressure down to the 70s. Past Medical History: Includes; 1.AFib. 2.Hypertension. 3.Hyperlipidemia. 4.Chronic kidney disease, stage 3. Baseline creatinine 1.1, GFR around 50. Past Surgical History: Includes; 1.Knee replacement. 2.Hysterectomy. 3.Cataract. Family History: Positive for hypertension and hyperlipidemia. Social History: Denied smoking. Denied drinking. Denied drugs abuse. Review of Systems: Head and Neck: No red eye. No ear pain. GI: No nausea. No vomiting. : No polyuria. No dysuria. No hematuria. 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 Respiratory: Has shortness of breath. Cardiovascular: Has palpitation. Endocrine: No polydipsia. Skin: No rash. Neuro: Has neuropathy. Musculoskeletal: No joint pain. Physical Examination: Vital Signs: Blood pressure 112/55, pulse of 70, and afebrile. The patient is urinating freely. Chest: Crackles bilateral base. Heart: S1, S2. Regular. Abdomen: Soft, nontender. Extremity: Trace edema. Laboratory Data: Sodium 140, potassium 4.3, bicarb 33, BUN 36, creatinine 1.2, GFR of 40. Yesterday ; creatinine 1.4, GFR of 36. WBC 12.3, H and H 10.5/31.8, platelets 294. Current Medications: The patient on include aspirin, Plavix, Lovenox, amiodarone, metoprolol 25 t.i. d., Lyrica, meclizine, pantoprazole, levothyroxine, magnesium oxide, oral iron, lidocaine. In the re hab, the patient was on diuresis. Assessment And Plan: 1.Acute kidney injury secondary to cardiorenal, poor perfusion ATN secondary to the atrial fibrillat ion with rapid ventricular response, over volume with underlying chronic kidney disease secondary to cardiorenal and obstructive uropathy. The patient on the recovery, looked to me on the over volume s mayte. I am going to resume Lasix and we will monitor the patient closely and we will follow up. 2.Hypertension with the presence of atrial fibrillation, rapid ventricular response, and low blood p ressure. We will utilize the blood pressure to establish better volume control. We will use the Las ix in a piggyback to avoid low blood pressure and we will follow up. 3.Atrial fibrillation with rapid ventricular response as by primary. 4.Chronic kidney disease, normal-sized kidney, secondary to hypertension, nephrosclerosis, cardioren al with obstructive uropathy with acute kidney injury as above. Time spent discussing with the patient, examining the patient [id number], placing order, discussing with staff, explaining to the patient, analyzing the data, discussing with Cardiology, and Dr. Solis 75 minutes. DESTINY/JERSEY Voice ID: [id number] Report ID: [id number]
--- NOTE | 2021-01-14 13:21 | RAD REPORT ---
EXAM DESCRIPTION: Natan Single View01/14/2021 11:19 am CLINICAL HISTORY: Shortness of breath COMPARISON: January 13 FINDINGS: Moderate left pleural effusion with basilar atelectasis Right lung appears clear. Heart remains enlarged IMPRESSION: Moderate left pleural effusion
[2021-01-14] MEDS: OXYBUTYNIN ER 5 MG TAB PO SCH (16:37)
[2021-01-14] MEDS: GUAIFENESIN/DM 5 ML UCUP PO PRN (19:14)
--- NOTE | 2021-01-14 21:22 | P.PN ---
Subjective Date of Service: 01/14/21 Chief Complaint: RECURRENT A FIB Subjective: Improving MS. GARCIA WAS TRANSFERRED TO 4TH FLOOR A FIB RETURNED. LATER SHE HAD LOW BP DESPITE REDUCTION IN LASIX. HER CREAT IS HIGHER SUGGESTIVE OF PRERENAL STATUS. SHE ALSO HAS CHF ON CXR. I TALKED TO DR. BONILLA SHE MAY NEED FURTHER MEEK AT [facility] WITH RECURRENT AFIB AND UNCONTROLLED CHF. SHE IS COMFORTABLE BUT NOT ABLE TO AMBULATE WITHOUT TACHYCARDIA AND WEAKNESS. SHE IS WEAK GENERALLY. THERAPIST ADVISE HER TO GET TO SNF NOW. DR. BUCKNER MAY BE ABLE TO TAKE HER TO [facility] IF THEY HAVE A BED. DR. BONILLA HAS TALKED TO HIM. SHE MAY NEED ABLATION. Physical Examination - Vital Signs Temperature: 97.2 F Blood Pressure: 128/59 Pulse: 97 Respirations: 18 Pulse Ox (%): 99 - Physical Exam General: Alert, Mild distress HEENT: Atraumatic, PERRLA, EOMI Neck: Supple, JVD not distended Respiratory: Clear to auscultation bilaterally, Normal air movement Cardiovascular: Irregular heart rate/rhythm Gastrointestinal: Normal bowel sounds, No tenderness Musculoskeletal: No tenderness Integumentary: No rashes Neurological: Normal speech, Normal tone, Normal affect Lymphatics: No axilla or inguinal lymphadenopathy - Studies Laboratory Data (last 24 hrs) 01/14/21 03:25: Sodium 140, Potassium 4.3, BUN 36 H, Creatinine 1.28, Glucose 90 01/14/21 03:25: WBC 12.30 H D, Hgb 10.5 L, Hct 31.8 L, Plt Count 294 Medications List Reviewed: Yes Assessment And Plan - Current Problems (Diagnosis) (1) Hypotension Current Visit: Yes Status: Acute Plan: RELATED LASIX GIVEN FOR CHF ON RECENT ADMISSION. STOP LASIX. SIGNS OF DEHYDRATION ON C7. GENTLE IV HYDRATION. DAILY LAB. CONSULT NEPHROLOGY TEAM AGAIN SHE IS NOT ABLE TO TOLERATE DIURETICS AND HAS CHF ON CXR. LASIX DRIP MAY BE ANSWER BUT IN A PHP MYSQL WEB DEVELOPER SMALL DOSE LASIX MAY WORK BUT STILL SHE GETS DEHYDRATED. (2) Rapid atrial fibrillation Current Visit: No Status: Chronic Plan: SHE IS ON HIGHER DOSE OF AMIODARONE NOW. SHE ALREADY HAS HAD WATCHMAN PROCEDURE AND WILL NOT NEED ELIQUIS. METOPROLOL TID AND WILL WATCH BP. (3) Acute on chronic diastolic (congestive) heart failure Current Visit: No Status: Chronic Plan: DR. APARICIO HAS BEEN CALLED IN FOR FLUID MANAGEMENT SHE GETS HYPOTENSE WITH LASIX AND THE BUN RISES.
[2021-01-15 06:25] LABS: Albumin 2.3 g/dL (3.4-5.0); Phosphorus 3.3 mg/dL (2.5-4.9); Potassium 4.7 mmol/L (3.5-5.1)
[2021-01-15] MEDS: LIOTHYRONINE SOD 5 MCG TAB PO SCH (06:29)
[2021-01-15] MEDS: PANTOPRAZOLE 40MG TABLET PO SCH (06:29)
[2021-01-15 07:00] LABS: Absolute Lymphocytes (CBC) 0.7 K/uL (0.7-4.9); Basophils % 0.7 % (0-1.3); Hematocrit 31.9 % (36.0-45.0); Lymphocytes % 6.5 % (15.3-44.8); MPV 8.4 fL (7.6-11.3); RBC Red Blood Cell Count 3.58 M/uL (3.86-4.86)
[2021-01-15] MEDS: LEVOTHYROXINE SOD 0.125 MG TAB PO SCH (07:42)
[2021-01-15] MEDS: PREGABALIN 75 MG CAP PO SCH (07:55)
[2021-01-15] MEDS: ASPIRIN EC 81 MG TAB PO SCH (07:55)
[2021-01-15] MEDS: MECLIZINE HCL 12.5 MG TAB PO SCH ×3 (07:56→21:06)
[2021-01-15] MEDS: AMIODARONE HCL 200 MG TAB PO SCH (07:56)
[2021-01-15] MEDS: ROSUVASTATIN 10 MG TAB PO SCH (07:56)
[2021-01-15] MEDS: MAGNESIUM OXIDE 400 MG TAB PO SCH ×2 (07:56→21:06)
[2021-01-15] MEDS: CLOPIDOGREL 75 MG TABLET PO SCH (07:56)
[2021-01-15] MEDS: ENOXAPARIN 40 MG/0.4 ML SQ SCH (07:57)
[2021-01-15] MEDS: LIDOCAINE 4% PATCH TOP SCH (07:57)
[2021-01-15] MEDS: URSODIOL PO SCH ×2 (07:58→21:05)
[2021-01-15] MEDS: FEBUXOSTAT 80 MG PO SCH (07:59)
[2021-01-15] MEDS: SODIUM CHLORIDE 0.9% 10ML INJ IV SCH ×2 (09:00→21:07)
[2021-01-15] MEDS: FUROSEMIDE 40 MG/4 ML VIAL IV SCH (09:11)
[2021-01-15] MEDS: METOPROLOL TAR 25 MG TAB PO SCH ×3 (09:12→21:00)
--- NOTE | 2021-01-15 13:15 | P.PN ---
Subjective Date of Service: 01/15/21 Chief Complaint: RECURRENT A FIB Subjective: Improving MS. GARCIA WAS TRANSFERRED TO 4TH FLOOR A FIB RETURNED. LATER SHE HAD LOW BP DESPITE REDUCTION IN LASIX. HER CREAT IS HIGHER SUGGESTIVE OF PRERENAL STATUS. SHE ALSO HAS CHF ON CXR. I TALKED TO DR. BONILLA SHE MAY NEED FURTHER MEEK AT [facility] WITH RECURRENT AFIB AND UNCONTROLLED CHF. SHE IS COMFORTABLE BUT NOT ABLE TO AMBULATE WITHOUT TACHYCARDIA AND WEAKNESS. SHE IS WEAK GENERALLY. THERAPIST ADVISE HER TO GET TO SNF NOW. DR. BUCKNER MAY BE ABLE TO TAKE HER TO [facility] IF THEY HAVE A BED. DR. BONILLA HAS TALKED TO HIM. SHE MAY NEED ABLATION. SHE WALKED AND HAS BLISTER R HEEL. Review of Systems 10-point ROS is otherwise unremarkable General: Weakness Respiratory: Shortness of Breath Physical Examination - Vital Signs Temperature: 97.3 F Blood Pressure: 112/75 Pulse: 72 Respirations: 16 Pulse Ox (%): 98 - Physical Exam General: Oriented x3, Mild distress, Obese HEENT: Atraumatic, PERRLA, EOMI Neck: Supple, JVD not distended Respiratory: Clear to auscultation bilaterally, Normal air movement Cardiovascular: Irregular heart rate/rhythm Gastrointestinal: Normal bowel sounds, No tenderness Musculoskeletal: No tenderness Integumentary: No rashes Neurological: Normal speech, Normal tone, Normal affect Lymphatics: No axilla or inguinal lymphadenopathy - Studies Laboratory Data (last 24 hrs) 01/15/21 21:15: Plt Count Cancelled 01/15/21 05:45: WBC 10.50 D, Hgb 10.7 L, Hct 31.9 L, Plt Count 328 01/15/21 05:45: Sodium 141, Potassium 4.7, BUN 34 H, Creatinine 1.18, Glucose 82, Phosphorus 3.3 Medications List Reviewed: Yes Assessment And Plan - Current Problems (Diagnosis) (1) Hypotension Current Visit: Yes Status: Acute Plan: RELATED LASIX GIVEN FOR CHF ON RECENT ADMISSION. STOP LASIX. SIGNS OF DEHYDRATION ON C7. GENTLE IV HYDRATION. DAILY LAB. CONSULT NEPHROLOGY TEAM AGAIN SHE IS NOT ABLE TO TOLERATE DIURETICS AND HAS CHF ON CXR. LASIX DRIP MAY BE ANSWER BUT IN A ADMISSIONS ADVISOR SMALL DOSE LASIX MAY WORK BUT STILL SHE GETS DEHYDRATED. Qualifiers: Hypotension type: hypotension due to drug Qualified Code(s): I95.2 - Hypotension due to drugs (2) Rapid atrial fibrillation Current Visit: No Status: Chronic Plan: SHE IS ON HIGHER DOSE OF AMIODARONE NOW. SHE ALREADY HAS HAD WATCHMAN PROCEDURE AND WILL NOT NEED ELIQUIS. METOPROLOL TID AND WILL WATCH BP. (3) Acute on chronic diastolic (congestive) heart failure Current Visit: No Status: Chronic Plan: DR. APARICIO HAS BEEN CALLED IN FOR FLUID MANAGEMENT SHE GETS HYPOTENSE WITH LASIX AND THE BUN RISES. LASIX PO TOLERATED NOW. LAB FU DAILY. MAY BE ABLE TO GO TO [facility] FOR THIS ONGOING ISSUE. MAY BENEFIT BY HEART FAILURE SPECIALISTS IN [facility] IN ADDITION TO EPS .
--- NOTE | 2021-01-15 13:29 | PN ---
Date of Progress Note: 01/15/2021 Subjective: The patient was admitted with acute kidney injury, AFib with RVR. The patient planned f or transfer to [facility] for ablation. Physical Examination: Vital Signs: Blood pressure 131/61, pulse of 91, afebrile. Chest: Crackles bilateral base. Heart: S1, S2. Irregular. Abdomen: Soft, nontender. Extremity: Trace edema. Neuro: Alert. No focality. Laboratory Data: WBC 10.5, H and H 10.7/31.9. Sodium 141, potassium 4.7, bicarb 35, BUN 34, creatin ine down to 1.1, GFR of 44, calcium 8.7, phosphorus 3.3, albumin 2.3. Current Medications: The patient on include aspirin, Plavix, Lovenox, amiodarone 200, metoprolol 25 t.i.d. Crestor, Lasix 40 daily, meclizine, pantoprazole, levothyroxine. Assessment And Plan: 1.Acute kidney injury secondary to cardiorenal, poor perfusion, ATN, recovered, resolved, back to he r baseline. I am going to continue current dose of Lasix. The patient okay to be switched to oral L asix 40 daily. We will follow up. If she did not transfer, we will switch. Otherwise, we will cont inue current regimen. 2.Hypertension. Continue current treatment. 3.Atrial fibrillation. Follow up with Cardiology. Plan for ablation. 4.Congestive heart failure. Continue current diuresis dose. 5.Deconditioning. Continue PT/OT. DESTINY/JERSEY Voice ID: [id number] Report ID: [id number]
[2021-01-15] MEDS: ACETAMINOPHEN 500 MG TAB PO PRN (15:08)
--- NOTE | 2021-01-15 16:19 | RAD REPORT ---
EXAM DESCRIPTION: US - Upper Lower Extrem Art Multi - 01/15/2021 2:48 pm CLINICAL HISTORY: check for clots Leg pain, claudication COMPARISON: Extremity Venous [employer] dated 11/19/2016 TECHNIQUE: Bilateral lower extremity arterial Doppler examination was performed with waveform tracin g and ankle brachial pressure measurements. FINDINGS: Symmetric brachial pressure measurements are noted. Triphasic and biphasic waveforms are seen throughout both lower extremity arterial systems to the lev el of the dorsalis pedis arteries. Right dorsalis pedis artery is mildly dampened. Right ankle brachial index measures 1.2, normal. Left ankle brachial index measures 1.1, normal. IMPRESSION: No evidence of significant peripheral vascular disease.
[2021-01-15] MEDS: OXYBUTYNIN ER 5 MG TAB PO SCH (17:07)
[2021-01-15] MEDS: DIPHENHYDRAMINE 25 MG TAB/CAP PO PRN (21:11)
[2021-01-15] MEDS: GUAIFENESIN/DM 5 ML UCUP PO PRN (21:11)
[2021-01-16 04:56] LABS: Albumin 2.3 g/dL (3.4-5.0); Phosphorus 3.5 mg/dL (2.5-4.9); Potassium 4.6 mmol/L (3.5-5.1)
[2021-01-16] MEDS: PANTOPRAZOLE 40MG TABLET PO SCH (06:16)
[2021-01-16] MEDS: LIOTHYRONINE SOD 5 MCG TAB PO SCH (06:16)
--- NOTE | 2021-01-16 07:32 | P.PN ---
Subjective Date of Service: 01/16/21 Chief Complaint: RECURRENT A FIB She reports no increased shortness of breath upon my visit with her today. Physical Examination - Vital Signs Temperature: 97 F Blood Pressure: 129/58 Pulse: 95 Respirations: 18 Pulse Ox (%): 100 - Physical Exam General: Mild distress HEENT: Atraumatic, Normocephalic Neck: Supple Respiratory: Diminished (on LLB) Cardiovascular: Edema Gastrointestinal: Soft and benign, Non-distended Musculoskeletal: No clubbing, Swelling Integumentary: Other (Normal temp) Neurological: Normal speech, Normal tone - Studies Laboratory Data (last 24 hrs) 01/16/21 03:59: Sodium 143, Potassium 4.6, BUN 34 H, Creatinine 1.13, Glucose 80, Phosphorus 3.5 Medications List Reviewed: Yes Assessment And Plan - Plan # GABYB 2/2 hypoperfusion from poor forward flow secondary to rapid A. fib w/ hypotension Resolving SCr improved to 1.1 Has CKD3a, baseline SCr around 1.0 as of Sep 2019 (equivalent GFR 54 ml/min) Has mild proteinuria 0.6 g on random UPCR Renal ultrasound unremarkable Heart rate control goal < 110 bpm to maintain adeq renal blood flow Monitor urine output Monitor renal panel She never has issue w/ hyponatremia. Do NOT restrict fluid intake. # Overactive bladder Continue oxybutynin # L nephrolithiasis Urinary stone panel as outpt [place] po fluid intake # Chronic metabolic alkalosis secondary to diuretics Alkalosis worsening Lasix d/c'ed on 01/16 as A. fib is now rate controlled and cardiogenic pulmonary edema is resolved # Recurrent acute respiratory failure 2/2 rapid afib & recurrent L pleural effusion Less likely due to pulmonary embolism TTE on 01/02/21 unremarkable except for LAE CTPE on 01/05/21 showed no dilatation in MPA; no clear e/o pulmo Htn No indication for chronic diuretic use Had L thoracentesis on previous hospital admission. Now has recurrent buildup of L pleural effusion as seen on CXR on 01/14. Will need another L thoracentesis. Discussed w/ attending Dr. Solis. Unclear what the underlying t operations asst is for her recurrent pleural effusion. I do not have result of her pleural fluid cytology. Will also have Pulmo Dr. Julian see pt. I suspect she will end up needing L pleurodesis or another similar procedure. If she develops another rapid afib, she will then have recurrent flash pulmo edema & she will need short course lasix at that point until HR is again controlled Head of bed will need to remain elevated until she gets another thoracentesis # BLE edema Etiology unclear. May be residual from poor forward flow from recurrent rapid afib. Edema of dependency not sig contributory. Aggravated by hypoalbuminemia. Unable to r/o LE lymphatic obstruction No clear e/o CHF on TTE No clear e/o pulmo Htn on CTPE No e/o chronic liver dse Has hypoalbuminemia but no nephrotic syndrome No LE DVT on doppler US Dc lasix as above Low Na diet Do NOT restrict po fluid intake unless she develops hyponatremia BLE GRECIA WNL May start BLE graduated compression stockings, at least knee-high, at least 20- 30 mmHg ankle pressure # Rapid Afib Currently rate controlled S/p Watchman remotely Mngt per Cardio # Htn With hypotensive episodes due to rapid A. fib Rate control per cardiology # Deconditioning OOB w/ PT/OT
[2021-01-16] MEDS: SODIUM CHLORIDE 0.9% 10ML INJ IV SCH ×2 (09:00→20:56)
[2021-01-16] MEDS: PREGABALIN 75 MG CAP PO SCH (09:00)
[2021-01-16] MEDS: CLOPIDOGREL 75 MG TABLET PO SCH (09:16)
[2021-01-16] MEDS: AMIODARONE HCL 200 MG TAB PO SCH (09:16)
[2021-01-16] MEDS: ROSUVASTATIN 10 MG TAB PO SCH (09:16)
[2021-01-16] MEDS: LEVOTHYROXINE SOD 0.125 MG TAB PO SCH (09:16)
[2021-01-16] MEDS: MECLIZINE HCL 12.5 MG TAB PO SCH ×3 (09:17→20:59)
[2021-01-16] MEDS: METOPROLOL TAR 25 MG TAB PO SCH ×3 (09:18→20:56)
[2021-01-16] MEDS: FUROSEMIDE 40 MG/4 ML VIAL IV SCH (09:18)
[2021-01-16] MEDS: ASPIRIN EC 81 MG TAB PO SCH (09:19)
[2021-01-16] MEDS: LIDOCAINE 4% PATCH TOP SCH (09:19)
[2021-01-16] MEDS: MAGNESIUM OXIDE 400 MG TAB PO SCH ×2 (09:19→20:56)
[2021-01-16] MEDS: ENOXAPARIN 40 MG/0.4 ML SQ SCH (09:19)
[2021-01-16] MEDS: FEBUXOSTAT 80 MG PO SCH (09:19)
[2021-01-16] MEDS: URSODIOL PO SCH ×2 (09:20→20:55)
[2021-01-16] MEDS ORDERED: LORazepam 2 MG/ML VIAL ONE (12:05)
[2021-01-16] MEDS ORDERED: NA CHLORIDE 0.9% 1,000 ML ONE (12:07)
--- NOTE | 2021-01-16 12:55 | P.PN ---
Subjective Date of Service: 01/16/21 Chief Complaint: RECURRENT A FIB Subjective: Improving MS. GARCIA WAS TRANSFERRED TO 4TH FLOOR A FIB RETURNED. LATER SHE HAD LOW BP DESPITE REDUCTION IN LASIX. HER CREAT IS HIGHER SUGGESTIVE OF PRERENAL STATUS. SHE ALSO HAS CHF ON CXR. I TALKED TO DR. BONILLA SHE MAY NEED FURTHER MEEK AT [facility] WITH RECURRENT AFIB AND UNCONTROLLED CHF. SHE IS COMFORTABLE BUT NOT ABLE TO AMBULATE WITHOUT TACHYCARDIA AND WEAKNESS. SHE IS WEAK GENERALLY. THERAPIST ADVISE HER TO GET TO SNF NOW. DR. BUCKNER MAY BE ABLE TO TAKE HER TO [facility] IF THEY HAVE A BED. DR. BONILLA HAS TALKED TO HIM. SHE MAY NEED ABLATION. SHE WALKED AND HAS BLISTER R HEEL. SHE WAS STABLE THIS AM, ABOUT LUNCH TIME HER BP DROPPED AGAIN. I ASKED SANDEEP TO CALL TRAVELING SALES EXECUTIVE TO POSSIBLY STOP LASIX SHE IS NOT VERY SYMPTOMATIC. Review of Systems 10-point ROS is otherwise unremarkable General: Weakness Physical Examination - Vital Signs Temperature: 97 F Blood Pressure: 114/50 Pulse: 71 Respirations: 16 Pulse Ox (%): 99 - Physical Exam General: Oriented x3, Mild distress HEENT: Atraumatic, PERRLA, EOMI Neck: Supple, JVD not distended Respiratory: Clear to auscultation bilaterally, Normal air movement Cardiovascular: Regular rate/rhythm, Normal S1 S2 Gastrointestinal: Normal bowel sounds, No tenderness Musculoskeletal: No tenderness Integumentary: No rashes, Pressure ulcer (HEEL ULCER, SUPERFICIAL.) Neurological: Normal speech, Normal tone, Normal affect Lymphatics: No axilla or inguinal lymphadenopathy - Studies Laboratory Data (last 24 hrs) 01/16/21 03:59: Sodium 143, Potassium 4.6, BUN 34 H, Creatinine 1.13, Glucose 80, Phosphorus 3.5 Medications List Reviewed: Yes Assessment And Plan - Current Problems (Diagnosis) (1) Hypotension Current Visit: Yes Status: Acute Plan: RELATED LASIX GIVEN FOR CHF ON RECENT ADMISSION. STOP LASIX. SIGNS OF DEHYDRATION ON C7. GENTLE IV HYDRATION. DAILY LAB. CONSULT NEPHROLOGY TEAM AGAIN SHE IS NOT ABLE TO TOLERATE DIURETICS AND HAS CHF ON CXR. LASIX DRIP MAY BE ANSWER BUT IN A FAMILY DENTIST SMALL DOSE LASIX MAY WORK BUT STILL SHE GETS DEHYDRATED. LASIX STOPPED. ORDER CT WITH CONTRAST. HER EFFUSIONS WERE NOT REALLY BIG ENOUGH TO WORRY. WILL SEE HOW IT IS NOW. RULE OUT OCCULT MALIGNANCY. AGAIN EFFUSIONS ARE BILATERAL AND SO LESS LIKELY TO BE CANCER. Qualifiers: Hypotension type: hypotension due to drug Qualified Code(s): I95.2 - Hypotension due to drugs (2) Rapid atrial fibrillation Current Visit: No Status: Chronic Plan: SHE IS ON HIGHER DOSE OF AMIODARONE NOW. SHE ALREADY HAS HAD WATCHMAN PROCEDURE AND WILL NOT NEED ELIQUIS. METOPROLOL TID AND WILL WATCH BP. (3) Acute on chronic diastolic (congestive) heart failure Current Visit: No Status: Chronic Plan: DR. APARICIO HAS BEEN CALLED IN FOR FLUID MANAGEMENT SHE GETS HYPOTENSE WITH LASIX AND THE BUN RISES. LASIX PO TOLERATED NOW. LAB FU DAILY. MAY BE ABLE TO GO TO [facility] FOR THIS ONGOING ISSUE. MAY BENEFIT BY HEART FAILURE SPECIALISTS IN [facility] IN ADDITION TO EPS MD. EF NORMAL. STOP LASIX. GENTLE HYDRATION.
--- NOTE | 2021-01-16 15:08 | RAD REPORT ---
EXAM DESCRIPTION: CT - Thorax W/ Con - 01/16/2021 2:22 pm CLINICAL HISTORY: size of pl effusion, mass rule out, chest pain, shortness of breath COMPARISON: Chest Angio dated 01/05/2021; THORAX W CONTRAST dated 09/02/2015 TECHNIQUE: Dynamically enhanced 5 mm thick images of the chest were obtained during administration o f 100 mL non-ionic IV contrast. All CT scans are performed using dose optimization technique as appropriate and may include automated exposure control or mA/KV adjustment according to patient size. FINDINGS: Large left pleural effusion is present spanning based apex occupying 40- 50% of the left h emithorax volume. This is slightly increased from January 05. There is near complete atelectasis of the left lower lobe. There is a small portion of the superior s egment left lower lobe that remains aerated. The amount of aerated superior segment left lower lobe h as decreased since January 05. There is minimal atelectasis along the posterior aspect of the lingula. Mi nimal atelectasis is present along the posterior aspect of the right lower lobe. There is a small rig ht pleural effusion similar or slightly decreased from comparison. Underlying mass or acute infiltrate not identifiable. A non consolidated infectious process can exist within atelectatic lung. No pleural based mass. No pneumothorax. No chest wall mass or abnormal axillary lymphadenopathy. Mediastinal and hilar region show a few small sub centimeter nonspecific lymph nodes. Left atrial tessy endage closure device is in place. An 8 mm thick pericardial effusion is present. The inferior left pulmonary vein does not show the same level of opacification as the remaining pulmo nary veins. Pulmonary vein thrombus is possible. This could be noncontrast opacified blood. Patient m ay have diminished circulation through the atelectatic left lower lobe resulting in delayed flow of c ontrast opacified blood. This pattern is similar to January 05 and has show no progression. IMPRESSION: No underlying mass seen and pneumonia or consolidated parenchyma are not suspected. The left inferior pulmonary vein does not opacify with contrast in a manner similar to the other 3 pu lmonary veins. This could be pulmonary vein thrombosis. There is near complete atelectasis of the le ft lower lobe which could result in delayed flow of contrast opacified blood less mimicking thrombus. Pattern is similar to January 05. Large left pleural effusion occupying 40-50% of the left hemithorax. This is slightly increased from January 05. Small right pleural effusion is present similar or slightly decreased from January 05. Cardiomegaly with pericardial effusion up to 8 mm in thickness.
[2021-01-16] MEDS: OXYBUTYNIN ER 5 MG TAB PO SCH (18:01)
[2021-01-17] MEDS: GUAIFENESIN/DM 5 ML UCUP PO PRN (01:54)
[2021-01-17 04:41] LABS: Absolute Lymphocytes (CBC) 0.9 K/uL (0.7-4.9); Basophils % 1.2 % (0-1.3); Hematocrit 31.1 % (36.0-45.0); Lymphocytes % 11.4 % (15.3-44.8); MPV 8.6 fL (7.6-11.3); RBC Red Blood Cell Count 3.49 M/uL (3.86-4.86)
[2021-01-17 05:10] LABS: Albumin 2.3 g/dL (3.4-5.0); Potassium 4.4 mmol/L (3.5-5.1)
[2021-01-17] MEDS: LIOTHYRONINE SOD 5 MCG TAB PO SCH (05:33)
[2021-01-17] MEDS: PANTOPRAZOLE 40MG TABLET PO SCH (05:33)
[2021-01-17] MEDS: ACETAMINOPHEN 500 MG TAB PO PRN (05:33)
[2021-01-17] MEDS: METOPROLOL TAR 25 MG TAB PO SCH ×2 (08:41→13:36)
[2021-01-17] MEDS: ENOXAPARIN 40 MG/0.4 ML SQ SCH (08:42)
[2021-01-17] MEDS: LIDOCAINE 4% PATCH TOP SCH (08:42)
[2021-01-17] MEDS: AMIODARONE HCL 200 MG TAB PO SCH (08:42)
[2021-01-17] MEDS: PREGABALIN 75 MG CAP PO SCH (08:42)
[2021-01-17] MEDS: MECLIZINE HCL 12.5 MG TAB PO SCH ×2 (08:42→13:36)
[2021-01-17] MEDS: ASPIRIN EC 81 MG TAB PO SCH (08:42)
[2021-01-17] MEDS: ROSUVASTATIN 10 MG TAB PO SCH (08:43)
[2021-01-17] MEDS: MAGNESIUM OXIDE 400 MG TAB PO SCH (08:43)
[2021-01-17] MEDS: URSODIOL PO SCH (08:44)
[2021-01-17] MEDS: FEBUXOSTAT 80 MG PO SCH (08:44)
[2021-01-17] MEDS: LEVOTHYROXINE SOD 0.125 MG TAB PO SCH (08:44)
[2021-01-17] MEDS: SODIUM CHLORIDE 0.9% 10ML INJ IV SCH (08:45)
[2021-01-17 12:39] VITALS: O2SAT 97
[2021-01-17] MEDS: OXYBUTYNIN ER 5 MG TAB PO SCH (16:07)
[2021-01-17 16:48] VITALS: BP 114/77; TEMP 97.2
--- NOTE | 2021-01-17 17:27 | P.DS ---
Admission Date: 01/11/21 Discharge Date: 01/17/21 Disposition: TRANSFER TO [facility] Discharge Condition: FAIR Reason for Admission: RECURRENT A FIB - Problems (1) Hypotension Current Visit: Yes Status: Acute Qualifiers: Hypotension type: hypotension due to drug Qualified Code(s): I95.2 - Hypotension due to drugs (2) Rapid atrial fibrillation Current Visit: No Status: Chronic (3) Acute on chronic diastolic (congestive) heart failure Current Visit: No Status: Chronic Brief History of Present Illness: MS. GARCIA WAS TRANSFERRED BACK TO SECOND FLOOR BY DR MILLS AFTER I FOUND HER IRREGULAR IN HEART EXAM IN REHAB FLOOR. 12 LEAD EKG CONFIRMED A FIB AT ABOUT 100 TO 120 PE RMIN DESPITE BEING ON AMIODARONE. SHE ALREADY HAS HAD WATCHMAN PROCEDURE. SHE WAS IN REHAB FOR WEAKNESS WITH CHF EPISODE. AFTER BEING ON THE FLOOR HER BP DROPPED TO 77 SYSTOLIC THIS AM. SHE WAS GIVEN IV BOLUS AND BP CAME UP TO 120 SYSTOLIC AND DOWN TO 90 NOW WITH METOPROLOL TID GIVEN FOR A FIB BY DR BONILLA. Hospital Course: MS. GARCIA CAME IN TO HOSPITAL FOR DYSPNEA, TREATED FOR CHF.SHE LATER STARTED TO HAVE HYPOTENSION FROM NOT BEING ABLE TO TOLERATE DIURETICS. HER EF IS NORMAL. SHE ALSO HAS UNCONTROLLED A FIB ON MEDS AND NEEDS ABLATION. 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 SHE IS TRANSFERRED TO [facility] FOR HIGHER LEVEL OF CARE. Vital Signs/Physical Exam: Temp Pulse Resp BP Pulse Ox 97.2 F 81 18 114/77 97 01/17/21 16:00 01/17/21 16:00 01/17/21 16:00 01/17/21 16:00 01/17/21 16:00 Laboratory Data at Discharge: WBC 7.60 K/uL (4.3-10.9) D 01/17/21 04:08 Hgb 10.2 g/dL (12.0-15.0) L 01/17/21 04:08 Hct 31.1 % (36.0-45.0) L 01/17/21 04:08 Plt Count 386 K/uL (152-406) 01/17/21 04:08 Sodium 140 mmol/L (136-145) 01/17/21 04:08 Potassium 4.4 mmol/L (3.5-5.1) 01/17/21 04:08 BUN 33 mg/dL (7-18) H 01/17/21 04:08 Creatinine 1.23 mg/dL (0.55-1.3) 01/17/21 04:08 Glucose 83 mg/dL (74-106) 01/17/21 04:08 Phosphorus 3.0 mg/dL (2.5-4.9) 01/17/21 04:08 Magnesium Cancelled 01/13/21 Unknown Home Medications: Oxybutynin Chloride [Oxybutynin Chloride ER] 15 mg PO DAILY 04/27/12 Rabeprazole Sodium [Aciphex] 20 mg PO DAILY 04/27/12 Febuxostat [Uloric] 80 mg PO DAILY 03/16/13 Magnesium Oxide [Magnesium] 500 mg PO BID 07/10/14 Pregabalin [Lyrica] 150 mg PO DAILY 10/22/14 Aspirin [Aspirin EC 81 MG] 81 mg PO DAILY 01/01/21 Clopidogrel Bisulfate [Plavix] 75 mg PO DAILY 01/01/21 Diphenhydramine HCl [Benadryl Allergy] 25 mg PO DAILY PRN 01/01/21 Iron 1 tab PO TID 01/01/21 Levothyroxine [Synthroid*] 125 mcg PO DAILY 01/01/21 Liothyronine Sodium [Cytomel] 5 mcg PO DAILY 01/01/21 Rosuvastatin [Crestor*] 5 mg PO DAILY 01/01/21 Zinc 100 mg PO DAILY 01/01/21 ursodioL [Ursodiol] 300 mg PO BID 01/01/21 Ascorbic Acid [Vitamin C] 500 mg PO DAILY 01/02/21 Meclizine HCl [Antivert*] 25 mg PO TID tab 01/09/21 Amiodarone HCl [Cordarone*] 200 mg PO DAILY tab 01/17/21 Guaif/Dm [Robitussin Dm*] 10 ml PO Q6H PRN ucup 01/17/21
--- NOTE | 2021-01-18 03:59 | PN ---
Date of Progress Note: 01/17/2021 Chief Complaint: Acute kidney injury secondary to prerenal azotemia triggered by hypoperfusion due t o atrial fibrillation with rapid ventricular response. The patient developed hypotension. Subsequen tly, renal function has declined. Over last several days serum creatinine improved gradually and rec ently improved to 1.0. Baseline creatinine level was 1.0 in September 2019 equivalent GFR 54 mL/min. The patient has history of proteinuria of mild degree. Recent workup showed proteinuria of 0.6 g fo r 24 hours. Renal ultrasound was unremarkable. The patient does not have any evidence of nephritis. Review of Systems: Denies fever, chills. Physical Examination: Lungs: Diminished breath sounds at bases. Heart: S1, S2. Abdomen: Soft, benign. Extremities: Minimal edema. Impression And Plan: 1.Acute kidney injury. Continue adequate hydration. Avoid nephrotoxic medications. 2.Atrial fibrillation with rapid ventricular response. Continue beta-kevon for rate control. 3.Hypertension. Blood pressure control. 4.Proteinuria. Patient is candidate for CHRISTIANE inhibitor for proteinuria control. 5.Bilateral lower extremity edema. Patient does not have evidence of systolic dysfunction on echo. Continue low-sodium diet and monitor fluid balance. 6.Rapid ventricular response. Continue management with accounting associate. KYM/JERSEY Voice ID: [id number] Report ID: [id number]
--- NOTE | 2021-01-18 16:01 | PN ---
Date of Progress Note: 01/12/2021 Ms. Del Toro had come in with atrial fibrillation despite being on amiodarone. She continued to be in atrial fibrillation with rapid ventricular response. Heart rate is in the 90s from 120, on IV amiod arone. Metoprolol now is t.i.d. She continues to be on Lasix, thyroid, clopidogrel, and aspirin, as well as Lovenox. She continues to be in atrial fibrillation at a rate of direct current cardioversi on. The patient understands the risks and benefits and she agrees to proceed. AJMES/JERSEY Voice ID: [id number] Report ID: [id number]
== END 2021-01-17 20:35 | disposition short-term general hospital (02) | DRG 308 ==
LOC: 4TH 21:21
PROVIDERS: ADMIT Internal Medicine; ATTEND Internal Medicine
DX: I48.91 Unspecified atrial fibrillation (principal); I50.33 Acute on chronic diastolic (congestive) heart failure; N17.0 Acute kidney failure with tubular necrosis; I13.0 Hypertensive heart and chronic kidney disease with heart failure and stage 1 through stage 4 chronic kidney disease, or unspecified chronic kidney disease; E87.3 Alkalosis; N18.31 Chronic kidney disease, stage 3a; E66.9 Obesity, unspecified; Z68.34 Body mass index [BMI] 34.0-34.9, adult; I95.2 Hypotension due to drugs; T50.1X5A Adverse effect of loop [high-ceiling] diuretics, initial encounter; Y92.9 Unspecified place or not applicable; R80.9 Proteinuria, unspecified; Z96.611 Presence of right artificial shoulder joint; Z96.652 Presence of left artificial knee joint; Z79.01 Long term (current) use of anticoagulants; Z20.822 Contact with and (suspected) exposure to COVID-19
CPT/HCPCS: 36415; 71045; 71260; 80048; 80069; 82947; 83735; 85025; 85049; 93923; 97110; 97112; 97116; 97161; 97530; J1650; J1940; J7030; J7040; Q9967; U0003

== ENCOUNTER 2021-10-06 12:21 | Inpatient (IN) | payer OTHER, BC ==
--- OUTSIDE RECORDS SUMMARY | 2021-10-06 12:25 | XMS REPORT | Continuity of Care Document ---
:1940 Author Organization [facility] t Address [address] [place] [address] Care Team Providers Name Role Phone [phone] Primary Care Physician Unavailable Anurag Attending Clinician Unavailable SYSTEM, NOT IN Attending Clinician Unavailable STEFFI Attending Clinician Unavailable MD Sunshine KAPADIA Attending Clinician Unavailable IVANA Attending Clinician Unavailable SEBASTIÁN Attending Clinician Unavailable Jony Solis Admitting Clinician Unavailable STEFFI Admitting Clinician Unavailable MD Sunshine KAPADIA Admitting Clinician Unavailable Payers Payer Name Policy Type Policy Number Effective Date Expiration Date S ource [place] POS [id number] 2014 00:00:00 MEDICARE PART A [id number] 2004 AND B 00:00:00 Problems This patient has no known problems. Allergies, Adverse Reactions, Alerts Allergy Allergy Status Severity Reaction(s) Onset Inactive Treating Comm ents Source Name Type Date Date Clinician No Known DA Active U [facility] Allergie 3-29 Clear s 00:00: Collins [facility] No Known DA Active U [facility] Allergie 3-29 Clear s 00:00: Collins [facility] No Known DA Active U [facility] Drug 7 Clear Allergie 00:00: Collins [facility] No Known DA Active U [facility] Drug 02-10 Clear Allergie 00:00: Collins s [facility] Medications This patient has no known medications. Procedures Procedure Date / Time Performed Performing Clinician Kristine graff [id number] 2020-10-29 00:00:00 DEBRA [facility] Clear [facility] Encounters Start End Encounter Admission Attending Care Care Encounter Source Date/Time Date/Time Type Type Clinicians Facility Department ID 2020-11-26 Inpatient JORDAN Osborn [facility] OUTD [id number] [facility] 14:00:00 [place] [address] [facility] 2020-11-25 Inpatient Raslan, [facility] OUTD [id number] [facility] 08:00:00 [place] [address] [facility] 2020-11-21 Inpatient Raslan, [facility] OUTD [id number] [facility] 14:00:00 Eagle [address] [facility] 2020-10-29 Inpatient Raslan, [facility] OUTD [id number] [facility] 11:15:00 Eagle [address] [facility] 2020-10-27 Inpatient Raslan, [facility] OUTD [id number] [facility] 13:00:00 Eagle [address] [facility] 2020-10-13 Outpatient TAYA CASH MDA [id number] 13:14:56 ADRIAN tidwell 2019-07-30 Outpatient [facility] 7500 12:25:32 [facility] 2021-01-17 2021-01-23 Inpatient BRANDEN KAPADIA [facility] [id number] 1340 [place] 00:00:00 00:00:[address] 2020-10-03 2020-10-08 Outpatient JORDAN HEATH MDA MDA [id number] 09:19:28 08:21:37 THELMA tidwell 2020-10-03 2020-10-03 Outpatient JORDAN HEATH MDA MDA [id number] 08:59:38 23:59:00 THELMA tidwell 2018-04-27 2018-04-27 Outpatient JORDAN LOWERY MDA MDA [id number] 10:30:01 10:30:01 JEANINE tidwell Results Test Description Test Time Test Comments Results Result Comments Source SARS-CoV-2 (COVID-19) RNA [Presence] in Respiratory sp ecimen by 2021-01-21 23:36:23 KAM with probe detection Test Item Value Reference Range Interpretation Comme nts SARS-CoV-2 (COVID-19) RNA [Presence] in Respiratory Not detected No t-Detected specimen by KAM with probe detection (test code = 85812-4) Whether patient is employed in a healthcare setting (test code = 66909-6) Whether the patient has symptoms related to condition of interest (test code = 79179-1) Patient was hospitalized because of this condition (test code = 26085-7) Whether the patient was admitted to intensive care unit (ICU) for condition of interest (test code = 22048-2) Whether patient resides in a congregate care setting (test code = 15964-3) Novel Coronavirus 2018 [id number] 04:35:00 Test Item Value Reference Range Interpretation Comments [...] n. The testing is perf ormed by personneltraine d in the procedures for the Lui M2000 molecular diagnostic SARS-CoV-2 assa y in vitro. BASIC METABOLIC [id number] 16:24:00 Test Item Value Reference Range Interpretation [...] = 10.0 mg/dL 8.0-10.5 N CA) PROTHROMBIN [id number] 16:12:00 Test Item Value Reference Range Interpretation [...] o prevent recurre nt infarct). CBC W/AUTO [id number] 16:05:00 Test Item Value Reference Range Interpretation [...] (test code NO = MDIFF) CBC W/AUTO [id number] 16:02:00 Test Item Value Reference Range Interpretation [...] code = MDIFF) - XR CHEST 1 [id number] 16:30:00 [facility] : 1940 Sex: F FAX: Eagle Sexton MD [phone] [place]: St: [facility] FAX: Ysabel Navarro NP [phone] Name: GRAICELA GARCIA [facility] : 1940 Age/S: 80/F [address] [place] [address] Blvd Unit #: [id number] [place]: [place] [address] Phys: Ysabel Santacruz NP Acct: [id number] Dis Date: Status: REG SD PHONE #: [phone] Exam Date: 10/29/2020 1514 FAX #: [phone] Reason: post watchman EXAMS: CPT CODE: [id number] XR CHEST 1 V [id number] EXAM: XR CHEST 1 VIEW DATE: 10/29/2020 [...] changes are seen involving the aorta. SL: [id number] at 1630 Reported and signed by: Petra Rivera D.O. 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 The testing is perf ormed by ben d in the procedures for the Sharetribe M2000 molecular diagnostic SARS-CoV-2 assa y in vitro. - XR CHEST 2 [id number] 14:55:00 [facility] : 1940 Sex: F FAX: Eagle Sexton MD [phone] [place]: [address] St: PRE Name: GRACIELA GARCIA [facility] : 1940 Age/S: 80/F [address] [place] [address] Blvd Unit #: [id number] Loc: [place] [address] Phys: [facility] Osborn MD Acct: [id number] Dis Date: Status: PRE SDC PHONE #: [phone] Exam Date: 10/27/2020 1424 FAX #: [phone] Reason: PRE-OP WATCHMAN EXAMS: CPT CODE: [id number] XR CHEST 2 V 93384 EXAM: PA and lateral chest. EXAM DATE: October 27, 2020 CLINICAL HISTORY: PRE-OP WATCHMAN COMPARISON: None Heart is prominent but difficult to assess secondary to moderate left-sided pleural effusion. The right lung is unremarkable.. The left upper lung is unremarkable.Orthopedic hardware noted in the right proximal humerus. Surgical clips identified in the leftaxillary region. IMPRESSION: Moderate left-sided pleural effusion. at 1455 Reported and signed by: Jesi Garcia M.D. CC: [facility] Osborn MD Technologist: RT Suad(R) Trnscrd Date/Time/By: 10/27/2020 (3600) : By: Kenneth Orig Print D/T: S: 10/27/2020 (8082) PAGE 1 Signed ReportBASIC METABOLIC PANEL 2020-10-27 [...] code = 9.3 mg/dL 8.0-10.5 N CA) [id number] 14:35:00 Test Item Value Reference Range Interpretation Comments PREALBUMIN (test code = PREALB) 18.9 mg/dL 16.0-40.0 N PROTHROMBIN [id number] 14:34:00 Test Item Value Reference Range Interpretation [...] o prevent recurre nt infarct). CBC W/AUTO [id number] 14:19:00 Test Item Value Reference Range Interpretation [...] REQUIRED (test code = MDIFF) CBC W/AUTO [id number] 14:19:00 Test Item Value Reference Range Interpretation [...] (test code NO = MDIFF) BASIC METABOLIC [id number] 07:01:00 Test Item Value Reference Range Interpretation [...] RATE (test code = mL/min/1.7 3 GFR) [id number] Range:Healthy A dults >90 mL/min/1.73 m2 For Chronic Kidney Disease: St age II Mild Dec rease in GFR 6 0-90 Stage III Moderate Decrea se in GFR 30-59 Stage IV Se floyd Decrease in GFR 15-29 Stage V Kidney Failur e <15 CREATININE (test code 1.73 mg/dL 0.55-1.30 H = CREAT) CALCIUM (test code = 8.2 mg/dL 8.2-10.1 N CA) HGB [id number] 05:43:00 Test Item Value Reference Range Interpretation Comments HEMOGLOBIN (test code = HGB) 9.0 g/dL 12-16 L HEMATOCRIT (test code = HCT) 27.7 % 37-47 L URINALYSIS [id number] 14:52:00 Test Item Value Reference Range Interpretation [...] FEW /HPF NONE = BACU) COMPREHENSIVE METABOLIC [id number] 13:30:00 Test Item Value Reference Range Interpretation [...] RATE (test code = GFR) mL/mi n/1.73 g2Hbhwboanr Range:Healthy Adults >90 mL/min/1.73 m2 For Chronic [...] N TOTAL (test code = ALKP) PROTHROMBIN [id number] 13:30:00 Test Item Value Reference Range Interpretation [...] BLOOD, PT every other day NTHROMBOPLASTIN TIME [id number] 13:30:00 Test Item Value Reference Range Interpretation Comments PTT ACTIVATED (test code = APTT) 34.3 secs 24.9-37.0 N IS PATIENT ON ANTICOAGULANTS ? YLIST ANTICOAGULANT/ANTI PLT MEDICATION : AspirinHas Lab been notified if Patient is on Heparin Drip? NOIf Yes, order CBC, OCCULT BLOOD, PT every other day NCBC W/AUTO [id number] 13:12:00 Test Item Value Reference Range Interpretation [...]
[2021-10-06 12:49] LABS: Absolute Lymphocytes (CBC) 0.9 K/uL (0.7-4.9); Lymphocytes % 15.6 % (15.3-44.8); MPV 8.9 fL (7.6-11.3); RBC Red Blood Cell Count 3.85 M/uL (3.86-4.86)
[2021-10-06 12:53] LABS: Protime INR 1.07
--- NOTE | 2021-10-06 12:55 | RAD REPORT ---
EXAM DESCRIPTION: CT - Head Brain Wo Cont - 10/06/2021 12:46 pm CLINICAL HISTORY: Dizziness COMPARISON: None TECHNIQUE: Computed axial tomography of the head was obtained. IV contrast was not requested. All CT scans are performed using dose optimization technique as appropriate and may include automated exposure control or mA/KV adjustment according to patient size. FINDINGS: An intracranial bleed is not seen . The ventricles are normal in caliber. No extra-axial fluid collection is noted. Mild low-density areas within periventricular, deep and subcortical white matter likely represent is chemic changes secondary to small vessel disease. Fluid within the sinuses/ mastoids is not seen. IMPRESSION: No acute intracranial abnormality is seen. If patient's symptoms persist MRI of the bra in would be recommended.
[2021-10-06 13:05] LABS: Potassium 3.9 mmol/L (3.5-5.1)
[2021-10-06] MEDS ORDERED: NA CHLORIDE 0.9% 250 ML ONE (13:19)
--- NOTE | 2021-10-06 13:26 | RAD REPORT ---
EXAM DESCRIPTION: MRI - Brain Wo Cont - 10/06/2021 1:13 pm CLINICAL HISTORY: Dizziness COMPARISON: Head CT October 06, 2021 TECHNIQUE: Axial, sagittal, and coronal magnetic resonance images of the brain were obtained. FINDINGS: Mild to moderate signal within periventricular, deep and subcortical white matter probably ischemic changes secondary to small vessel disease Diffusion-weighted/ADC mapping does not reveal evidence of acute infarction. The ventricles are normal caliber. An extra-axial fluid collection is not noted. Mild to moderate signal within the mastoids IMPRESSION: No acute intracranial abnormality noted Mild to moderate signal within the mastoids may indicate mastoiditis and should be correlated clinica lly
[2021-10-06 14:44] LABS: SARS-COV-2 RT PCR NEGATIVE (NEGATIVE)
[2021-10-06 14:51] LABS: Urine Bacteria >50 /HPF (<20)
[2021-10-06] MEDS ORDERED: CEFTRIAXONE 1000 MG/VIAL ONE (14:59)
--- NOTE | 2021-10-06 15:07 | EDPHYS ---
Physician Documentation [facility] Name: Aubrie Del Toro Age: 81 yrs Sex: Female : 1940 Arrival Date: 10/06/2021 Time: 12:28 Bed 14 Private MD: ED Physician Dimitrios Alcaraz HPI: 10/06 12:38 This 81 yrs old Female presents to ER via Unassigned with complaints of dizziness. rn 12:38 The patient presents with dizziness, lightheadedness. Onset: The symptoms/episode rn began/occurred this morning. Modifying factors: The symptoms are alleviated by holding head still, lying down, the symptoms are aggravated by standing up, changing position. Associated signs and symptoms: Pertinent negatives: abdominal pain, agitation, ataxia, blurred vision, chest pain, confusion, focal weakness, head injury, headache, seizure, shortness of breath, syncope, vomiting. Severity of symptoms: At their worst the symptoms were moderate in the emergency department the symptoms have improved. The patient has not experienced similar symptoms in the past. The patient has not recently seen a physician. Pt reports began with dizziness and feeling lightheaded this morning, worse with change in position or standing up. No fever/cough/congestion/chest pain/sob/abd pain/vomiting/diarrhea. Reports chronic bladder incontinence. No fall or syncope. No blood in stool. . Historical: - Allergies: 12:50 No Known Allergies; ss7 - Home Meds: 12:50 carvedilol 12.5 mg Oral tab 1 tab 2 times per day [Active]; doxazosin 4 mg Oral tab ss7 [Active]; Lasix 40 mg Oral tab 1 tab once daily [Active]; metoprolol tartrate 50 mg Oral tab [Active]; Plavix 75 mg Oral tab 1 tab once daily [Active]; Xarelto 20 mg Oral tab 1 tab once daily [Active]; - PMHx: 12:50 bladder issues; Cataracts; GERD; Headaches; Hypertension; Hypothyroidism; l eblow ss7 melanoma; lymphedema; neuropathy; - PSHx: 12:50 Unable to Obtain; ss7 - Immunization history:: Adult Immunizations Client reports receiving the Alexis \\T\\ Alexis single-dose vaccine. Pneumococcal vaccine status is unknown, Flu vaccine is up to date. - Social history:: Smoking status: Patient denies any tobacco usage or history of. - Family history:: not pertinent. - Hospitalizations: : No recent hospitalization is reported. ROS: 12:38 Constitutional: Negative for fever, chills, and weight loss, Eyes: Negative for injury, rn pain, redness, and discharge, Neck: Negative for injury, pain, and swelling, Cardiovascular: Negative for chest pain, palpitations, and edema, Respiratory: Negative for shortness of breath, cough, wheezing, and pleuritic chest pain, Abdomen/GI: Negative for abdominal pain, nausea, vomiting, diarrhea, and constipation, Back: Negative for injury and pain, : Negative for injury, bleeding, discharge, and swelling, MS/Extremity: Negative for injury and deformity, Skin: Negative for injury, rash, and discoloration, Neuro: Negative for headache, numbness, tingling, and seizure. Exam: 12:38 Constitutional: This is a well developed, well nourished patient who is awake, alert, rn and in no acute distress. Head/Face: Normocephalic, atraumatic. Eyes: Pupils equal round and reactive to light, extra-ocular motions intact. Periorbital areas with no swelling, redness, or edema. ENT: NO stridor Cardiovascular: Regular rhythm, bradycardic. No pulse deficits. Respiratory: No increased work of breathing, no retractions or nasal flaring. Abdomen/GI: Soft, non-tender Skin: Warm, dry, no cyanosis MS/ Extremity: Pulses equal, no cyanosis. 1+ edema bilateral lower ext. Neuro: Awake and alert, GCS 15, oriented to person, place, time, and situation. Cranial nerves II-XII grossly intact. Motor strength 4/5 in all extremities. Sensory grossly intact. Cerebellar exam normal. Vital Signs: 12:48 BP 183 / 47; Pulse 51; Resp 16; Temp 97.8; Pulse Ox 97% ; Weight 83.46 kg; Height 5 ft. ss7 6 in. (167.64 cm); Pain 0/10; 15:30 BP 183 / 53; Pulse 51; Resp 18; Pulse Ox 98% on R/A; ss7 16:46 BP 163 / 49; Pulse 52; Resp 16; Pulse Ox 97% on R/A; ss7 19:00 BP 178 / 50; Pulse 53; Resp 20; Pulse Ox 96% on R/A; ss7 20:50 BP 193 / 50; Pulse 55; Resp 20; Pulse Ox 96% on R/A; 7 12:48 Body Mass Index 29.70 (83.46 kg, 167.64 cm) 7 MDM: 12:29 Patient medically screened. rn 15:01 Differential diagnosis: cardiac arrhythmia, CVA, generalized weakness, hypovolemia, rn idiopathic dizziness, near-syncope, TIA, vertigo, UTI. Data reviewed: vital signs, nurses notes, lab test result(s), EKG, radiologic studies, CT scan, MRI, and as a result, I will admit patient. Counseling: I had a detailed discussion with the patient and/or guardian regarding: the historical points, exam findings, and any diagnostic results supporting the discharge/admit diagnosis, lab results, radiology results, the need for further work-up and treatment in the hospital. Response to treatment: the patient's symptoms have mildly improved after treatment, and as a result, I will admit patient. Admission orders: after a detailed discussion of the patient's condition and case, the admit orders are written by me. ED course: Pt with UTI, vitals stable, BP improving, but states still feels weak and too weak to stand/walk.. 10/06 12:30 Order name: CBC with Diff; Complete Time: 13:30 rn 10/06 12:30 Order name: Basic Metabolic Panel; Complete Time: 13:30 rn 10/06 12:30 Order name: Protime (+inr); Complete Time: 13:30 rn 10/06 12:30 Order name: Ptt, Activated; Complete Time: 13:30 rn 10/06 12:30 Order name: Urine Microscopic Only; Complete Time: 14:53 rn 10/06 12:30 Order name: BNP; Complete Time: 13:30 rn 10/06 12:30 Order name: CT Head Brain wo Cont; Complete Time: 13:30 rn 10/06 12:30 Order name: MRI - Brain Wo Cont; Complete Time: 13:30 rn 10/06 12:30 Order name: EKG; Complete Time: 12:30 rn 10/06 12:43 Order name: COVID-19/FLU A+B (Document "Date of Onset" if Symptomatic) rn 10/06 12:44 Order name: COVID-19/FLU A+B; Complete Time: 14:53 EDMA 10/06 14:53 Order name: Urine Culture EDMS 10/06 12:30 Order name: IV Start; Complete Time: 12:54 rn 10/06 12:30 Order name: EKG - Nurse/Tech; Complete Time: 12:36 rn 10/06 12:30 Order name: Cardiac monitoring; Complete Time: 12:54 rn 10/06 12:30 Order name: O2 Sat Monitoring; Complete Time: 12:54 rn Administered Medications: 13:37 Drug: NS 0.9% 250 ml Route: IV; Rate: bolus; Site: right antecubital; ss7 13:52 Follow up: Response: No adverse reaction; IV Status: Completed infusion ss7 13:52 Follow up: Response: No adverse reaction; IV Status: Completed infusion ss7 14:58 Drug: Rocephin (cefTRIAXone) 1 grams Route: IV; Rate: calculated rate; Site: right ss7 antecubital; 15:44 Follow up: Response: No adverse reaction ss7 Disposition Summary: 10/06/21 15:06 Hospitalization Ordered Hospitalization Status: Observation rn Provider: Eddie Solsi rn Location: Telemetry/MedSurg (observation) rn Condition: Stable rn Problem: new rn Symptoms: have improved rn Bed/Room Type: Standard rn Room Assignment: 220(10/06/21 19:23) cg Diagnosis - UTI/ Urinary tract infection, site not specified rn - Dehydration rn - Muscle weakness (generalized) rn Forms: - Medication Reconciliation Form rn - SBAR form rn Signatures: Dispatcher [employer] [facility] Dimitrios Alcaraz MD MD rn Garcia, Cindy, RN RN cg Smith, Shana, RN RN ss7 Corrections: (The following items were deleted from the chart) 14:31 12:30 Urine Dipstick-Ancillary ordered. rn ss7 19:23 15:06 rn cg
--- NOTE | 2021-10-06 15:07 | ER ---
Nurse's Notes [facility] Name: Aubrie Del Toro Age: 81 yrs Sex: Female : 1940 Arrival Date: 10/06/2021 Time: 12:28 Bed 14 Private MD: Diagnosis: UTI/ Urinary tract infection, site not specified;Dehydration;Muscle weakness (generalized) Presentation: 10/06 12:48 Chief complaint: Patient states: Pt c/o dizziness and generalized weakness that began ss7 at 0400. Denies any chest pain, sob, infection s/sx. Coronavirus screen: Vaccine status: Patient reports receiving the 2nd dose of the covid vaccine. Ebola Screen: No symptoms or risks identified at this time. Initial Sepsis Screen: Does the patient meet any 2 criteria? No. Patient's initial sepsis screen is negative. Does the patient have a suspected source of infection? No. Patient's initial sepsis screen is negative. Risk Assessment: Do you want to hurt yourself or someone else? Patient reports no desire to harm self or others. Onset of symptoms was October 06, 2021. 12:48 Method Of Arrival: EMS: [facility] ss7 12:48 Acuity: [facility] ss7 Triage Assessment: 12:50 General: Appears in no apparent distress. comfortable, Behavior is calm, cooperative, ss7 appropriate for age. Pain: Denies pain. Neuro: Level of Consciousness is awake, alert, obeys commands, Oriented to person, place, time, situation, Appropriate for age Fuselage Framer are equal bilaterally Moves all extremities. Gait is. Cardiovascular: Reports Heart tones S1 S2 Capillary refill < 3 seconds Rhythm is sinus bradycardia with unifocal PVCs. Respiratory: Breath sounds are clear bilaterally. GI: Bowel sounds present X 4 quads. : No deficits noted. Derm: No deficits noted. Musculoskeletal: Reports weakness in right leg and left leg. 16:43 Cardiovascular: ss7 Historical: - Allergies: 12:50 No Known Allergies; ss7 - Home Meds: 12:50 carvedilol 12.5 mg Oral tab 1 tab 2 times per day [Active]; doxazosin 4 mg Oral tab ss7 [Active]; Lasix 40 mg Oral tab 1 tab once daily [Active]; metoprolol tartrate 50 mg Oral tab [Active]; Plavix 75 mg Oral tab 1 tab once daily [Active]; Xarelto 20 mg Oral tab 1 tab once daily [Active]; - PMHx: 12:50 bladder issues; Cataracts; GERD; Headaches; Hypertension; Hypothyroidism; l eblow ss7 melanoma; lymphedema; neuropathy; - PSHx: 12:50 Unable to Obtain; ss7 - Immunization history:: Adult Immunizations Client reports receiving the Alexis \\T\\ Alexis single-dose vaccine. Pneumococcal vaccine status is unknown, Flu vaccine is up to date. - Social history:: Smoking status: Patient denies any tobacco usage or history of. - Family history:: not pertinent. - Hospitalizations: : No recent hospitalization is reported. Screenin:53 Abuse screen: Denies threats or abuse. Nutritional screening: No deficits noted. ss7 Tuberculosis screening: No symptoms or risk factors identified. Fall Risk IV access (20 points). Assessment: 15:43 Reassessment: SEE TRIAGE ASSESSMENT. ss7 17:31 Reassessment: Patient appears in no apparent distress at this time. Currently sleeping. ss7 19:30 Reassessment: Pt with no needs. She is awake in stable condition.. ss7 21:40 Reassessment: Granddaughter present with food for patient to eat. Prior to patient ss7 assisted to bed side commode. Tolerated well. . Vital Signs: 12:48 BP 183 / 47; Pulse 51; Resp 16; Temp 97.8; Pulse Ox 97% ; Weight 83.46 kg; Height 5 ft. ss7 6 in. (167.64 cm); Pain 0/10; 15:30 BP 183 / 53; Pulse 51; Resp 18; Pulse Ox 98% on R/A; ss7 16:46 BP 163 / 49; Pulse 52; Resp 16; Pulse Ox 97% on R/A; ss7 19:00 BP 178 / 50; Pulse 53; Resp 20; Pulse Ox 96% on R/A; ss7 20:50 BP 193 / 50; Pulse 55; Resp 20; Pulse Ox 96% on R/A; ss7 12:48 Body Mass Index 29.70 (83.46 kg, 167.64 cm) ss7 ED Course: 12:28 Patient arrived in ED. rn 12:28 Dimitrios Alcaraz MD is Attending Physician. rn 12:38 Sondra Ramsey RN is Primary Nurse. ss7 12:46 CT Head Brain wo Cont In Process Unspecified. EDMS 12:50 Triage completed. ss7 12:50 Arm band placed on. EKG completed in triage. Results shown to . ss7 12:53 Patient has correct armband on for positive identification. Placed in gown. Bed in low ss7 position. Call light in reach. Side rails up X2. Adult w/ patient. group manager on. Pulse ox on. NIBP on. Sitter at bedside. 12:53 No provider procedures requiring assistance completed. Inserted saline lock: 20 gauge ss7 in right antecubital area, using aseptic technique. 12:54 BNP Sent. ss7 12:54 Basic Metabolic Panel Sent. ss7 13:04 MRI - Brain Wo Cont In Process Unspecified. EDMS 13:38 COVID-19/FLU A+B (Document "Date of Onset" if Symptomatic) Sent. ss7 13:38 COVID-19/FLU A+B Sent. ss7 14:30 Urine Microscopic Only Sent. ss7 14:55 Urine Culture Sent. ss7 15:06 Eddie Solis MD is Hospitalizing Provider. rn 20:55 Patient admitted, IV remains in place. ss7 Administered Medications: 13:37 Drug: NS 0.9% 250 ml Route: IV; Rate: bolus; Site: right antecubital; ss7 13:52 Follow up: Response: No adverse reaction; IV Status: Completed infusion ss7 13:52 Follow up: Response: No adverse reaction; IV Status: Completed infusion ss7 14:58 Drug: Rocephin (cefTRIAXone) 1 grams Route: IV; Rate: calculated rate; Site: right 7 antecubital; 15:44 Follow up: Response: No adverse reaction ss7 Outcome: 15:06 Decision to Hospitalize by Provider. rn 20:50 Admitted to [facility] via stretcher, room 220, Report called to [facility] ss7 20:55 Condition: good ss7 21:42 Patient left the ED. ss7 Signatures: Dispatcher [employer] EDMS Dimitrios Alcaraz MD MD rn Smith, Shana, RN RN [facility]
[2021-10-06] MEDS ORDERED: ACETAMINOPHEN 500 MG TAB PO PRN (21:32)
[2021-10-06] MEDS ORDERED: ONDANSETRON 4 MG/2 ML VIAL IV PRN (21:32)
[2021-10-07] MEDS: CEFTRIAXONE 1,000 MG in NA CHLORIDE 0.9% 50 ML IVPB SCH ×2 (03:06→14:12)
[2021-10-07] MEDS ORDERED: DIPHENHYDRAMINE 25 MG TAB/CAP PO PRN (07:58)
[2021-10-07] MEDS: FEBUXOSTAT 40 MG PO SCH (09:00)
[2021-10-07] MEDS: URSODIOL PO SCH ×2 (09:00→20:28)
[2021-10-07] MEDS ORDERED: ursodioL 300 MG CAP PO SCH (09:00)
[2021-10-07] MEDS ORDERED: HOME MED 1 EA UNK (Rabeprazole Sodium [Rabeprazole Sodium] 20 MG Tablet.Dr) PO SCH (09:00)
[2021-10-07] MEDS: NACHLORIDE 0.45% 1,000 ML IV SCH (09:10)
[2021-10-07] MEDS: FERROUS SULFATE 325 MG TAB PO SCH (09:10)
[2021-10-07] MEDS: LEVOTHYROXINE SOD 0.125 MG TAB PO SCH (09:10)
[2021-10-07] MEDS: OXYBUTYNIN CHLORIDE 5 MG TAB PO SCH (09:11)
[2021-10-07] MEDS: PANTOPRAZOLE 40MG TABLET PO SCH (09:11)
[2021-10-07] MEDS: ASPIRIN EC 81 MG TAB PO SCH (09:11)
[2021-10-07] MEDS: MECLIZINE HCL 12.5 MG TAB PO SCH ×3 (09:11→20:27)
[2021-10-07] MEDS: PREGABALIN 150 MG CAP PO SCH ×2 (09:11→20:28)
[2021-10-07] MEDS: LIOTHYRONINE SOD 5 MCG TAB PO SCH (09:11)
[2021-10-07] MEDS: AMIODARONE HCL 200 MG TAB PO SCH (09:11)
[2021-10-07] MEDS: MAGNESIUM OXIDE 400 MG TAB PO SCH ×2 (09:13→20:28)
[2021-10-07] MEDS ORDERED: LOSARTAN POTASSIUM 50 MG TABLET PO SCH (12:30)
--- NOTE | 2021-10-07 12:55 | EKG ---
Test Date: 2021-10-06 Test Time: 12:33:53 Splunk Dashboard Developer: PAULINA MEASUREMENT RESULTS: Intervals: Rate: 50 OR: 210 QRSD: 96 QT: 642 QTc: 585 [place]: P: 55 OR: 210 QRS: 45 T: 171 INTERPRETIVE STATEMENTS: Sinus bradycardia with 1st degree AV block T wave abnormality, consider inferolateral ischemia Prolonged QT Abnormal ECG Compared to ECG 01/11/2021 18:45:19 First degree AV block now present Possible ischemia now present Prolonged QT interval now present Atrial fibrillation no longer present T-wave abnormality still present Electronically Signed On 10-07-21 12:52:15 CRM ARCHITECT by Júnior Burns
--- NOTE | 2021-10-07 12:55 | EKG ---
Test Date: 2021-10-06 Test Time: 12:34:46 Compressor Station Operator: PAULINA MEASUREMENT RESULTS: Intervals: Rate: 51 RI: 208 QRSD: 100 QT: 612 QTc: 564 [place]: P: 17 RI: 208 QRS: 46 T: 139 INTERPRETIVE STATEMENTS: Sinus bradycardia with sinus arrhythmia ST & T wave abnormality, consider inferior ischemia Prolonged QT Abnormal ECG Compared to ECG 10/06/2021 12:33:53 ST (T wave) deviation now present First degree AV block no longer present T-wave abnormality no longer present Possible ischemia still present Electronically Signed On 10-07-21 12:52:14 ACCOUNTING TUTOR by Júnior Burns
--- NOTE | 2021-10-07 18:43 | P.HP ---
Certification for Inpatient Patient admitted to: Inpatient With expected LOS: >2 Midnights Practitioner: I am a practitioner with admitting privileges, knowledge of patient current condition, hospital course, and medical plan of care. Services: Services provided to patient in accordance with Admission requirements found in Title 42 Section 412.3 of the Code of Federal Regulations Patient History Date of Service: 10/07/21 Reason for admission: WEAK, DIZY, COULD NOT WALK History of Present Illness: GRACIELA IS PATIENT WITH HTN, A FIB, MILD CHF, COMES WITH DIZZINESS, COULD NOT WALK, FOUND TO HAVE MILD DEHYDRATION, UTI AND IS BETTER ON IV ROCEPHIN. MRI NEG FOR STROKE. Allergies No Known Allergies Allergy (Verified 01/01/21 20:48) Home medications list reviewed: Yes Home Medications: Febuxostat [Uloric] 80 mg PO DAILY 03/16/13 Aspirin [Aspirin EC 81 MG] 81 mg PO DAILY 01/01/21 Levothyroxine [Synthroid*] 125 mcg PO DAILY 01/01/21 Liothyronine Sodium [Cytomel] 5 mcg PO DAILY 01/01/21 ursodioL [Ursodiol] 300 mg PO BID 01/01/21 Amiodarone HCl [Cordarone*] 200 mg PO DAILY tab 01/17/21 Atorvastatin Calcium [Lipitor] 5 mg PO BEDTIME 02/19/21 Ferrous Sulfate [Feosol] 325 mg PO DAILY 02/19/21 Furosemide [Lasix] 40 mg PO DAILY 02/19/21 Magnesium Oxide [Magnesium] 500 mg PO BID 02/19/21 Oxybutynin Chloride [Ditropan] 15 mg PO DAILY 02/19/21 Pregabalin [Lyrica] 150 mg PO BID 02/19/21 Ascorbic Acid [Vitamin C] 1,000 mg PO DAILY 10/06/21 Cranberry Fruit [Cranberry] 300 mg PO DAILY 10/06/21 Diphenhydramine [Benadryl*] 25 mg PO PRN PRN 10/06/21 Rabeprazole Sodium 20 mg PO DAILY 10/06/21 Zinc 50 mg PO DAILY 10/06/21 - Past Medical/Surgical History Diabetic: No -: CHF -: DM -: GERD -: Neuropathy -: Insomnia -: Hyperlipidemia -: overactive bladder -: Hypothyroidism -: Right Shoulder Replacement -: Bilateral knee replacment -: Hysterectomy -: ULE Melanoma removal -: Tonsilectomy -: Adnoidectomy -: Bilateral eye surgery r/t strabismus - Family History Mother -: Other (see notes) Notes: CHF Father -: Other (see notes) Notes: CHF - Social History Smoking Status: Never smoker Alcohol use: No CD- Drugs: No Caffeine use: No Place of Residence: Home Review of Systems 10-point ROS is otherwise unremarkable General: Weakness, Malaise Physical Examination - Vital Signs Temperature: 98.1 F Blood Pressure: 128/45 Pulse: 62 Respirations: 18 Pulse Ox (%): 94 - Physical Exam General: Oriented x3, Mild distress, Obese HEENT: Atraumatic, PERRLA, Mucous membr. moist/pink, EOMI, Sclerae nonicteric Neck: Supple, 2+ carotid pulse no bruit, No LAD, Without JVD or thyroid abnormality Respiratory: Clear to auscultation bilaterally, Normal air movement Cardiovascular: Regular rate/rhythm, Normal S1 S2 Gastrointestinal: Normal bowel sounds, No tenderness Musculoskeletal: No tenderness Integumentary: No rashes Neurological: Normal gait, Normal speech, Normal strength at 5/5 x4 extr, Normal tone, Normal affect Lymphatics: No axilla or inguinal lymphadenopathy Assessment and Plan - Problems (Diagnosis) (1) UTI (urinary tract infection) Current Visit: Yes Status: Acute Plan: IV ROCEPHIN (2) Dehydration Current Visit: Yes Status: Acute Plan: GENTLE IV HYDRATION. (3) A-fib Current Visit: No Status: Chronic Qualifiers: Atrial fibrillation type: permanent Qualified Code(s): I48.21 - Permanent atrial fibrillation (4) Vertigo Current Visit: No Status: Acute Plan: MECLIZINE PRN PT FOR SAFETY. - Advance Directives Does patient have a Living Will: Yes Does patient have a Durable POA for Healthcare: Yes
[2021-10-07] MEDS: ATORVASTATIN 10 MG TAB PO SCH (20:27)
[2021-10-07 23:00] VITALS: BMI 28.8
[2021-10-07] MEDS ORDERED: CEFTRIAXONE 1000 MG/VIAL ONE (23:13)
[2021-10-08] MEDS: CEFTRIAXONE 1,000 MG in NA CHLORIDE 0.9% 50 ML IVPB SCH ×2 (03:44→14:17)
[2021-10-08] MEDS: NACHLORIDE 0.45% 1,000 ML IV SCH (03:52)
[2021-10-08] MEDS: LEVOTHYROXINE SOD 0.125 MG TAB PO SCH (06:38)
[2021-10-08 07:08] LABS: Absolute Lymphocytes (CBC) 1.1 K/uL (0.7-4.9); Hematocrit 31.6 % (36.0-45.0); Lymphocytes % 18.4 % (15.3-44.8); MPV 9.2 fL (7.6-11.3); RBC Red Blood Cell Count 3.52 M/uL (3.86-4.86)
[2021-10-08 07:22] LABS: Magnesium 2.2 mg/dL (1.8-2.4); Potassium 3.9 mmol/L (3.5-5.1)
[2021-10-08] MEDS: MECLIZINE HCL 12.5 MG TAB PO SCH ×3 (08:16→20:38)
[2021-10-08] MEDS: OXYBUTYNIN CHLORIDE 5 MG TAB PO SCH (08:17)
[2021-10-08] MEDS: AMIODARONE HCL 200 MG TAB PO SCH (08:17)
[2021-10-08] MEDS: PANTOPRAZOLE 40MG TABLET PO SCH (08:17)
[2021-10-08] MEDS: PREGABALIN 150 MG CAP PO SCH ×2 (08:17→20:38)
[2021-10-08] MEDS: LIOTHYRONINE SOD 5 MCG TAB PO SCH (08:17)
[2021-10-08] MEDS: ASPIRIN EC 81 MG TAB PO SCH (08:18)
[2021-10-08] MEDS: FERROUS SULFATE 325 MG TAB PO SCH (08:18)
[2021-10-08] MEDS: MAGNESIUM OXIDE 400 MG TAB PO SCH ×2 (08:18→20:38)
[2021-10-08] MEDS: LOSARTAN POTASSIUM 50 MG TABLET PO SCH (08:18)
[2021-10-08] MEDS: URSODIOL PO SCH ×2 (08:19→20:38)
[2021-10-08] MEDS: FEBUXOSTAT 40 MG PO SCH (08:19)
--- NOTE | 2021-10-08 13:10 | P.PN ---
Subjective Date of Service: 10/08/21 Chief Complaint: WEAK, DIZY, COULD NOT WALK Subjective: Improving SHE IS A LOT BETTER. SITTING UP. WANTS TO GO HOME. ABLE TO WALK. Physical Examination - Vital Signs Temperature: 98.3 F Blood Pressure: 126/40 Pulse: 68 Respirations: 18 Pulse Ox (%): 100 - Physical Exam General: Mild distress, Obese HEENT: Atraumatic, PERRLA, EOMI Neck: Supple, JVD not distended Respiratory: Clear to auscultation bilaterally, Normal air movement Cardiovascular: Regular rate/rhythm, Normal S1 S2 Gastrointestinal: Normal bowel sounds, No tenderness Musculoskeletal: No tenderness Integumentary: No rashes Neurological: Normal speech, Normal tone, Normal affect Lymphatics: No axilla or inguinal lymphadenopathy - Studies Microbiology Data (last 24 hrs): 10/06/21 14:20 Clean Catch Urine Bertram Count - Final >100,000 CFU/ML. 10/06/21 14:20 Clean Catch Urine - Final Medications List Reviewed: Yes Assessment And Plan - Current Problems (Diagnosis) (1) UTI (urinary tract infection) Current Visit: Yes Status: Acute Plan: IV ROCEPHIN ESBL IN URINE. URINE COLLECTION WAS POOR IN ER. DO ST CATH TO CONFIRM ESBL. RN IS AWARE. (2) Dehydration Current Visit: Yes Status: Acute Plan: GENTLE IV HYDRATION. IMPROVED BP BETTER. STOP LOSRATN IF BP LOW LIKE THIS AM. SHE DOES NOT TAKE BP MEDS AT HOME. (3) A-fib Current Visit: No Status: Chronic Qualifiers: Atrial fibrillation type: permanent Qualified Code(s): I48.21 - Permanent atrial fibrillation (4) Vertigo Current Visit: No Status: Acute Plan: MECLIZINE PRN PT FOR SAFETY.
[2021-10-08] MEDS: ATORVASTATIN 10 MG TAB PO SCH (20:37)
[2021-10-08] MEDS: TRAZODONE 50 MG TABLET PO PRN (23:15)
[2021-10-09 00:20] LABS: Urine Appearance CLOUDY (Clear); Urine Bilirubin NEGATIVE (Negative); Urine Blood TRACE (Negative); Urine Color YELLOW (Yellow); Urine Glucose NEGATIVE (Negative); Urine Protein NEGATIVE (Negative); Urine Urobilinogen 0.2 mg/dL (0.2-1.0); Urine pH 6.5 (5.0-7.0)
[2021-10-09 00:57] LABS: Urine Bacteria 20-50 /HPF (<20)
[2021-10-09 00:58] LABS: Urine Mucus 2+ /HPF (NONE SEEN)
[2021-10-09] MEDS: NACHLORIDE 0.45% 1,000 ML IV SCH (01:51)
[2021-10-09] MEDS: CEFTRIAXONE 1,000 MG in NA CHLORIDE 0.9% 50 ML IVPB SCH ×2 (01:52→15:05)
[2021-10-09] MEDS: LEVOTHYROXINE SOD 0.125 MG TAB PO SCH (05:23)
[2021-10-09] MEDS: URSODIOL PO SCH ×2 (09:00→20:07)
[2021-10-09] MEDS: MAGNESIUM OXIDE 400 MG TAB PO SCH ×2 (09:00→20:06)
[2021-10-09] MEDS: FEBUXOSTAT 40 MG PO SCH (09:00)
[2021-10-09] MEDS: ENOXAPARIN 40 MG/0.4 ML SQ SCH (10:09)
[2021-10-09] MEDS: OXYBUTYNIN CHLORIDE 5 MG TAB PO SCH (10:09)
[2021-10-09] MEDS: ASPIRIN EC 81 MG TAB PO SCH (10:10)
[2021-10-09] MEDS: LIOTHYRONINE SOD 5 MCG TAB PO SCH (10:10)
[2021-10-09] MEDS: AMIODARONE HCL 200 MG TAB PO SCH (10:11)
[2021-10-09] MEDS: FERROUS SULFATE 325 MG TAB PO SCH (10:11)
[2021-10-09] MEDS: MECLIZINE HCL 12.5 MG TAB PO SCH ×3 (10:11→20:06)
[2021-10-09] MEDS: PANTOPRAZOLE 40MG TABLET PO SCH (10:11)
[2021-10-09] MEDS: PREGABALIN 150 MG CAP PO SCH ×2 (10:12→20:06)
[2021-10-09] MEDS: LOSARTAN POTASSIUM 50 MG TABLET PO SCH (10:12)
--- NOTE | 2021-10-09 16:03 | P.PN ---
Subjective Date of Service: 10/09/21 Chief Complaint: LOT BETTER. HEEL PAIN Subjective: Improving SHE IS A LOT BETTER. SITTING UP. WANTS TO GO HOME. ABLE TO WALK. SHE HAS IMPROVED. THERE IS NO PAIN, FEVER OR CHILLS. SHE IS ABLE TO AMBULATE BUT WEAK. Physical Examination - Vital Signs Temperature: 97.4 F Blood Pressure: 161/74 Pulse: 84 Respirations: 18 Pulse Ox (%): 99 - Physical Exam General: Oriented x3, Mild distress, Obese HEENT: Atraumatic, PERRLA, EOMI Neck: Supple, JVD not distended Respiratory: Clear to auscultation bilaterally, Normal air movement Cardiovascular: Regular rate/rhythm, Normal S1 S2 Gastrointestinal: Normal bowel sounds, No tenderness Musculoskeletal: No tenderness Integumentary: No rashes Neurological: Normal speech, Normal tone, Normal affect Lymphatics: No axilla or inguinal lymphadenopathy - Studies Medications List Reviewed: Yes Assessment And Plan - Current Problems (Diagnosis) (1) UTI (urinary tract infection) Current Visit: Yes Status: Acute Plan: IV ROCEPHIN I ASKED THEM TO REPEAT UA ANX CULTURE WITH S CATH BUT SOME NURSE ONLY DID CULTUR E. I ASKED KENDRA TO APOLOGIZE THE PATIENT AND DO SPECI CATH CULTURE ALWAYS HAS TO BE READ IN CONJUNCTION WITH UA. SECOND CULTURE IS GROWING GRAM NEG BACILLI. FIRST ONE GREW KLEBSIALLA BUT THE COLLECTION OF URINE IN ER WAS NOT PROPER. SHE HAS IMPROVED ON IV ROCEPHIN AND I DON'T WANT TO SUBJECT HER TO HOME MERREM IT WILL BE A VERY STRONG ANTIBIOTIC UNLESS WE ABSOULTELY NEED TO . CULURE IS PENDING I CALLED [facility]. (2) Dehydration Current Visit: Yes Status: Acute Plan: GENTLE IV HYDRATION. IMPROVED BP BETTER. STOP LOSRATN IF BP LOW LIKE THIS AM. SHE DOES NOT TAKE BP MEDS AT HOME. (3) A-fib Current Visit: No Status: Chronic Qualifiers: Atrial fibrillation type: permanent Qualified Code(s): I48.21 - Permanent atrial fibrillation (4) Vertigo Current Visit: No Status: Acute Plan: MECLIZINE PRN PT FOR SAFETY.
[2021-10-09] MEDS: ATORVASTATIN 10 MG TAB PO SCH (20:05)
[2021-10-09] MEDS: TRAZODONE 50 MG TABLET PO PRN (20:32)
[2021-10-10] MEDS: CEFTRIAXONE 1,000 MG in NA CHLORIDE 0.9% 50 ML IVPB SCH (02:08)
[2021-10-10] MEDS: LEVOTHYROXINE SOD 0.125 MG TAB PO SCH (05:30)
[2021-10-10 08:08] VITALS: BP 149/63; TEMP 97.6
--- NOTE | 2021-10-10 08:36 | P.DS ---
Admission Date: 10/07/21 Discharge Date: 10/10/21 Disposition: DC HOME/HOME HEALTH CARE Discharge Condition: FAIR Reason for Admission: LOT BETTER. HEEL PAIN - Problems (1) UTI (urinary tract infection) Current Visit: Yes Status: Acute (2) Dehydration Current Visit: Yes Status: Acute (3) A-fib Current Visit: No Status: Chronic Qualifiers: Atrial fibrillation type: permanent Qualified Code(s): I48.21 - Permanent atrial fibrillation (4) Vertigo Current Visit: No Status: Acute Brief History of Present Illness: GRACIELA IS PATIENT WITH HTN, A FIB, MILD CHF, COMES WITH DIZZINESS, COULD NOT WALK, FOUND TO HAVE MILD DEHYDRATION, UTI AND IS BETTER ON IV ROCEPHIN. MRI NEG FOR STROKE. Hospital Course: GRACIELA COMES WITH WEAKNESS. HAS UTI WITHOUT SYMPTOMS. ESBL IS SENSITVE TO AUGMENTIN. SHE CLINICALLY HAS IMPROVED ON ROCEPHIN. SHE IS STABLE FOR HOME WITH HOME HEALTH. SHE HAS WALKED WELL HERE. Vital Signs/Physical Exam: Temp Pulse Resp BP Pulse Ox 97.6 F 56 16 149/63 H 97 10/10/21 08:00 10/10/21 08:00 10/10/21 08:00 10/10/21 08:00 10/10/21 08:00 Laboratory Data at Discharge: WBC 5.90 K/uL (4.3-10.9) 10/08/21 06:49 Hgb 10.7 g/dL (12.0-15.0) L 10/08/21 06:49 Hct 31.6 % (36.0-45.0) L 10/08/21 06:49 Plt Count 144 K/uL (152-406) L 10/08/21 06:49 PT 12.3 SECONDS (9.5-12.5) 10/06/21 12:40 INR 1.07 10/06/21 12:40 APTT 34.0 SECONDS (24.3-36.9) 10/06/21 12:40 Sodium 140 mmol/L (136-145) 10/08/21 06:49 Potassium 3.9 mmol/L (3.5-5.1) 10/08/21 06:49 BUN 32 mg/dL (7-18) H 10/08/21 06:49 Creatinine 1.21 mg/dL (0.55-1.3) 10/08/21 06:49 Glucose 87 mg/dL (74-106) 10/08/21 06:49 Magnesium 2.2 mg/dL (1.8-2.4) 10/08/21 06:49 Home Medications: Febuxostat [Uloric] 80 mg PO DAILY 03/16/13 Aspirin [Aspirin EC 81 MG] 81 mg PO DAILY 01/01/21 Levothyroxine [Synthroid*] 125 mcg PO DAILY 01/01/21 Liothyronine Sodium [Cytomel] 5 mcg PO DAILY 01/01/21 ursodioL [Ursodiol] 300 mg PO BID 01/01/21 Amiodarone HCl [Cordarone*] 200 mg PO DAILY tab 01/17/21 Atorvastatin Calcium [Lipitor*] 5 mg PO BEDTIME 02/19/21 Ferrous Sulfate [Ferrous Sulfate*] 325 mg PO DAILY 02/19/21 Furosemide [Lasix*] 40 mg PO DAILY 02/19/21 Magnesium Oxide [Magnesium] 500 mg PO BID 02/19/21 Oxybutynin Chloride [Ditropan] 15 mg PO DAILY 02/19/21 Pregabalin [Lyrica*] 150 mg PO BID 02/19/21 Ascorbic Acid [Vitamin C] 1,000 mg PO DAILY 10/06/21 Cranberry Fruit [Cranberry] 300 mg PO DAILY 10/06/21 Diphenhydramine [Benadryl*] 25 mg PO PRN PRN 10/06/21 Rabeprazole Sodium 20 mg PO DAILY 10/06/21 Zinc 50 mg PO DAILY 10/06/21 Amox/Clavulanate [Augmentin 875-125 Tab] 1 each PO BID #20 tab 10/10/21 New Medications: Amox/Clavulanate [Augmentin 875-125 Tab] 1 each PO BID #20 tab Followup: Eddie Solis MD [Primary Care Provider] -
[2021-10-10] MEDS: FEBUXOSTAT 40 MG PO SCH (09:00)
[2021-10-10] MEDS: URSODIOL PO SCH (09:00)
[2021-10-10] MEDS: OXYBUTYNIN CHLORIDE 5 MG TAB PO SCH (09:02)
[2021-10-10] MEDS: LIOTHYRONINE SOD 5 MCG TAB PO SCH (09:02)
[2021-10-10] MEDS: PANTOPRAZOLE 40MG TABLET PO SCH (09:02)
[2021-10-10] MEDS: ENOXAPARIN 40 MG/0.4 ML SQ SCH (09:02)
[2021-10-10] MEDS: ASPIRIN EC 81 MG TAB PO SCH (09:03)
[2021-10-10] MEDS: MAGNESIUM OXIDE 400 MG TAB PO SCH (09:03)
[2021-10-10] MEDS: FERROUS SULFATE 325 MG TAB PO SCH (09:03)
[2021-10-10] MEDS: PREGABALIN 150 MG CAP PO SCH (09:03)
[2021-10-10] MEDS: LOSARTAN POTASSIUM 50 MG TABLET PO SCH (09:03)
[2021-10-10] MEDS: AMIODARONE HCL 200 MG TAB PO SCH (09:04)
[2021-10-10] MEDS: MECLIZINE HCL 12.5 MG TAB PO SCH (09:04)
[2021-10-10 10:28] VITALS: O2SAT 97
== END 2021-10-10 10:36 | disposition home health service (06) | DRG 690 ==
LOC: ER 12:21 → ERHOLD 15:48 → 2ND 20:51 → OBSVTOIN 10-07 19:34
PROVIDERS: ADMIT Internal Medicine; ATTEND Internal Medicine
DX: N39.0 Urinary tract infection, site not specified (principal); Z16.12 Extended spectrum beta lactamase (ESBL) resistance; I48.21 Permanent atrial fibrillation; B96.1 Klebsiella pneumoniae [K. pneumoniae] as the cause of diseases classified elsewhere; E86.0 Dehydration; E03.9 Hypothyroidism, unspecified; E11.9 Type 2 diabetes mellitus without complications; I11.0 Hypertensive heart disease with heart failure; I50.9 Heart failure, unspecified; Z96.611 Presence of right artificial shoulder joint; Z96.653 Presence of artificial knee joint, bilateral; Z20.822 Contact with and (suspected) exposure to COVID-19
CPT/HCPCS: 0240U; 36415; 70450; 70551; 80048; 81001; 81015; 83735; 83880; 85025; 85610; 85730; 87077; 87086; 87088; 87186; 93005; 96374; 96375; 97112; 97116; 97161; 97530; 99285; J1650; J7050; J8597

== ENCOUNTER 2022-01-08 13:13 | Observation (INO) | payer OTHER, BC ==
--- OUTSIDE RECORDS SUMMARY | 2022-01-08 14:04 | XMS REPORT | Continuity of Care Document ---
:1940 Author Organization [facility] t Address [address] [place] [address] Care Team Providers Name Role Phone [phone] Primary Care Physician Unavailable Anurag Attending Clinician Unavailable SYSTEM, NOT IN Attending Clinician Unavailable MIKE BUTTS Attending Clinician Unavailable Renita SHELL Attending Clinician Unavailable STEFFI Attending Clinician Unavailable MD Sunshine KAPADIA Attending Clinician Unavailable IVANA Attending Clinician Unavailable SEBASTIÁN Attending Clinician Unavailable Jony Solis Admitting Clinician Unavailable MIKE BUTTS Admitting Clinician Unavailable STEFFI Admitting Clinician Unavailable MD Sunshine KAPADIA Admitting Clinician Unavailable Payers Payer Name Policy Type Policy Number Effective Date Expiration Date S our[place] POS [id number] 2014 00:00:00 MEDICARE PART A [id number] 2004 AND B 00:00:00 Problems This patient has no known problems. Allergies, Adverse Reactions, Alerts Allergy Allergy Status Severity Reaction(s) Onset Inactive Treating Comm ents Source Name Type Date Date Clinician No Known DA Active U [facility] 3- Clear s 00:00: [place] 00 [facility] No Known DA Active U [facility] Allergie 3- Clear s 00:00: [place] 00 [facility] No Known DA Active U [facility] Drug 7 Clear Allergie 00:00: Collins s [facility] No Known DA Active U [facility] Drug 7-13 Clear Allergie 00:00: [address] Medications This patient has no known medications. Procedures Procedure Date / Time Performed Performing Clinician Kristine graff [id number] 2020-10-29 00:00:00 [facility] Encounters Start End Encounter Admission Attending Care Care Encounter Source Date/Time Date/Time Type Type Clinicians Facility Department ID 2020-11-26 Inpatient EL Raslan, [facility] OUTD [id number] [facility] 14:00:00 [place] [address] [facility] 2020-11-25 Inpatient Raslan, [facility] OUTD [id number] [facility] 08:00:00 [place] [address] [facility] 2020-11-21 Inpatient Raslan, [facility] OUTD [id number] [facility] 14:00:00 [place] [address] [facility] 2020-10-29 Inpatient Raslan, [facility] OUTD [id number] [facility] 11:15:00 [place] [address] [facility] 2020-10-27 Inpatient Raslan, [facility] OUTD [id number] [facility] 13:00:00 [place] [address] [facility] 2020-10-13 Outpatient SYSTEM, TAYA BAIN [id number] 13:14:56 PROVIDER Obed tidwell 2019-07-30 Outpatient MHSE KAEL [id number] MH 12:25:32 [facility] 2022-01-07 2022-01-07 Outpatient BENJAMÍN, M[facility] 7502 [facility] 07:52:00 23:59:00 BE 2021-12-23 2021-12-23 Outpatient BENJAMÍN, M[facility] [id number] [facility] 09:15:00 23:59:00 BE 2021-10-23 2021-10-23 Outpatient JORDAN SHELL [facility] [id number] 09:17:50 09:17:50 ALIE tidwell 2021-10-23 2021-10-23 Outpatient JORDAN SHELL [facility] MDA [id number] 08:18:09 08:18:09 ALIE tidwell 2021-01-17 2021-01-23 Inpatient BRANDEN KAPADIA [facility] [id number] [place] 00:00:00 00:00:[address] 2020-10-03 2020-10-08 Outpatient JORDAN HEATH MDA MDA [id number] 09:19:28 08:21:37 THELMA tidwell 2020-10-03 2020-10-03 Outpatient JORDAN HEATH [facility] [id number] 08:59:38 23:59:00 THELMA tidwell 2018-04-27 2018-04-27 Outpatient JORDAN LOWERY MDA [facility] [id number] 10:30:01 10:30:01 JEANINE tidwell Results Test Description Test Time Test Comments Results Result Comments Source SARS-CoV-2 (COVID-19) RNA [Presence] in Respiratory sp ecimen by 2021-01-21 23:36:23 KAM with probe detection Test Item Value Reference Range Interpretation Comme nts SARS-CoV-2 (COVID-19) RNA [Presence] in Respiratory Not detected No t-Detected specimen by KAM with probe detection (test code = 72809-4) Whether patient is employed in a healthcare setting (test code = 76440-8) Whether the patient has symptoms related to condition of interest (test code = 95986-4) Patient was hospitalized because of this condition (test code = 11252-7) Whether the patient was admitted to intensive care unit (ICU) for condition of interest (test code = 69835-3) Whether patient resides in a congregate care setting (test code = 34733-8) Novel Coronavirus 2018 [id number] 04:35:00 Test Item Value Reference Range Interpretation [...] for the identification of SARS-CoV-2 RNA usingthe [employer] M2000 Sy stem under the FDA Emergen cy UseAuthorizatio n. The testing is perf ormed by personneltraine d in the procedures for the [employer] M2000 molecular diagnostic SARS-CoV-2 assa y in vitro. BASIC METABOLIC [id number] 16:24:00 Test Item Value Reference Range Interpretation [...] = 10.0 mg/dL 8.0-10.5 N CA) PROTHROMBIN [id number] 16:12:00 Test Item Value Reference Range Interpretation [...] o prevent recurre nt infarct). CBC W/AUTO [id number] 16:05:00 Test Item Value Reference Range Interpretation [...] (test code NO = MDIFF) CBC W/AUTO [id number] 16:02:00 Test Item Value Reference Range Interpretation [...] code = MDIFF) - XR CHEST 1 [id number] 16:30:00 [facility] GRACIELA GARCIA : 1940 Sex: F FAX: [place] Sexton MD [phone] [place]: St: REG FAX: Ysabel Navarro NP [phone] Name: GRACIELA GARCIA [facility] Benedict Collins : 1940 Age/S: 80/F [address] [place] [address] Unit #: [id number] Loc: [place] [address] Phys: Ysabel Santacruz NP Acct: [id number] Dis Date: Status: REG [facility] PHONE #: [phone] Exam Date: 10/29/2020 [facility]4 FAX #: [phone] 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 SL: [id number] at 1630 Reported and signed by: Petra Rivera D.O. 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 EXAM DATE: [...] Garcia M.D. CC: [place] Osborn MD Technologist: Dalila Chawla RT(R) Trnscrd Date/Time/By: 10/27/2020 (2116) : By: Kenneth Orig Print D/T: S: 10/27/2020 (3775) PAGE 1 Signed ReportBASIC METABOLIC PANEL 2020-10-27 [...] code = 9.3 mg/dL 8.0-10.5 N CA) [id number] 14:35:00 Test Item Value Reference Range Interpretation Comments PREALBUMIN (test code = PREALB) 18.9 mg/dL 16.0-40.0 N PROTHROMBIN [id number] 14:34:00 Test Item Value Reference Range Interpretation [...] o prevent recurre nt infarct). CBC W/AUTO [id number] 14:19:00 Test Item Value Reference Range Interpretation [...] REQUIRED (test code = MDIFF) CBC W/AUTO [id number] 14:19:00 Test Item Value Reference Range Interpretation [...] (test code NO = MDIFF) BASIC METABOLIC [id number] 07:01:00 Test Item Value Reference Range Interpretation [...] TO ANDRÉS SOTOMAYOR/MARGARET GUERRAREAD BACK & CONFIRMED? LALA Banks.LAB.MA 02/07 0701 GLOMERULAR FILTRATION 28.4 >60 Unit o f measure: RATE (test code = mL/min/1.7 3 GFR) [id number] Range:Healthy A dults >90 mL/min/1.73 m2 For Chronic Kidney Disease: St age II Mild Dec rease in GFR 6 0-90 Stage III Moderate Decrea se in GFR 30-59 Stage IV Se floyd Decrease in GFR 15-29 Stage V Kidney Failur e <15 CREATININE (test code 1.73 mg/dL 0.55-1.30 H = CREAT) CALCIUM (test code = 8.2 mg/dL 8.2-10.1 N CA) HGB [id number] 05:43:00 Test Item Value Reference Range Interpretation Comments HEMOGLOBIN (test code = HGB) 9.0 g/dL 12-16 L HEMATOCRIT (test code = HCT) 27.7 % 37-47 L URINALYSIS [id number] 14:52:00 Test Item Value Reference Range Interpretation [...] FEW /HPF NONE = BACU) COMPREHENSIVE METABOLIC [id number] 13:30:00 Test Item Value Reference Range Interpretation [...] RATE (test code = GFR) mL/mi n/1.73 [id number] Range:Healthy Adults >90 mL/min/1.73 m2 For Chronic [...] N TOTAL (test code = ALKP) PROTHROMBIN [id number] 13:30:00 Test Item Value Reference Range Interpretation [...] BLOOD, PT every other day NTHROMBOPLASTIN TIME [id number] 13:30:00 Test Item Value Reference Range Interpretation Comments PTT ACTIVATED (test code = APTT) 34.3 secs 24.9-37.0 N IS PATIENT ON ANTICOAGULANTS ? YLIST ANTICOAGULANT/ANTI PLT MEDICATION : AspirinHas Lab been notified if Patient is on Heparin Drip? NOIf Yes, order CBC, OCCULT BLOOD, PT every other day NCBC W/AUTO [id number] 13:12:00 Test Item Value Reference Range Interpretation [...]
[2022-01-08 14:28] VITALS: BMI 30.6
[2022-01-08] MEDS ORDERED: ONDANSETRON 4 MG/2 ML VIAL IV PRN (14:36)
[2022-01-08] MEDS ORDERED: POLYETHYL GLY 3350 17 GM/DOSE PO PRN (14:36)
[2022-01-08] MEDS ORDERED: ACETAMINOPHEN 325 MG TABLET PO PRN (14:36)
[2022-01-08] MEDS ORDERED: DIPHENHYDRAMINE 25 MG TAB/CAP PO PRN ×2 (14:36→23:23)
[2022-01-08] MEDS ORDERED: LOPERAMIDE HCL 2 MG CAPSULE PO PRN (14:36)
[2022-01-08] MEDS ORDERED: NACHLORIDE 0.45% 1,000 ML IV SCH (15:00)
[2022-01-08] MEDS: CEFTRIAXONE 1,000 MG in NA CHLORIDE 0.9% 50 ML IVPB SCH (15:00)
--- NOTE | 2022-01-08 15:13 | RAD REPORT ---
EXAM DESCRIPTION: RAD - Chest Pa And Lat (2 Views) - 01/08/2022 3:03 pm CLINICAL HISTORY: Admission, shortness of breath, history of pleural effusion COMPARISON: Two view chest 07/06/2021 TECHNIQUE: Frontal and lateral views of the chest were obtained. FINDINGS: The lungs are fibrotic as a baseline. Interstitial pattern not clearly different from comp arison. Heart size is normal and central vasculature is within normal limits. No pneumothorax is p resent. Small a moderate size left pleural effusion is present not significantly different from samson rison. Left base atelectasis is present. No acute bony finding noted. No aortic abnormality. IMPRESSION: Left base pleural effusion similar to the July 2021 study.
[2022-01-08 15:30] LABS: Absolute Lymphocytes (CBC) 0.8 K/uL (0.7-4.9); Hematocrit 35.1 % (36.0-45.0); MPV 8.9 fL (7.6-11.3); RBC Red Blood Cell Count 3.92 M/uL (3.86-4.86)
[2022-01-08 15:31] LABS: Protime INR 1.04
[2022-01-08 16:05] LABS: Albumin 3.2 g/dL (3.4-5.0); Bilirubin Direct 0.1 mg/dL (0-0.2); Bilirubin Total 0.4 mg/dL (0.2-1.0); Magnesium 2.5 mg/dL (1.8-2.4); Phosphorus 2.7 mg/dL (2.5-4.9); Protein, Total 6.6 g/dL (6.4-8.2); Thyroid Stimulating Hormone 1.55 uIU/mL (0.360-3.740)
[2022-01-08 20:13] LABS: Urine Appearance Clear (Clear); Urine Bilirubin Negative (Negative); Urine Blood Negative (Negative); Urine Color Yellow (Yellow); Urine Glucose Negative (Negative); Urine Protein Negative (Negative); Urine Specific Gravity 1.015 (1.005-1.030); Urine Urobilinogen 0.2 mg/dL (0.2-1.0)
[2022-01-08 20:20] LABS: Urine Microscopic Reflex NO UMIC
[2022-01-09] MEDS ORDERED: LIOTHYRONINE SOD 5 MCG TAB PO SCH (06:30)
[2022-01-09] MEDS ORDERED: LEVOTHYROXINE SOD 0.125 MG TAB PO SCH (06:30)
[2022-01-09] MEDS ORDERED: PANTOPRAZOLE 40MG TABLET PO SCH (06:30)
[2022-01-09 06:55] LABS: Hematocrit 30.9 % (36.0-45.0); MPV 8.7 fL (7.6-11.3); RBC Red Blood Cell Count 3.42 M/uL (3.86-4.86)
[2022-01-09 07:02] LABS: Magnesium 2.3 mg/dL (1.8-2.4); Potassium 3.7 mmol/L (3.5-5.1)
[2022-01-09 07:59] VITALS: O2SAT 96
[2022-01-09] MEDS ORDERED: OXYBUTYNIN CHLORIDE 5 MG TAB PO SCH (09:00)
[2022-01-09] MEDS ORDERED: HOME MED 1 EA UNK (Rabeprazole Sodium [Rabeprazole Sodium] 20 MG Tablet.Dr) PO SCH (09:00)
[2022-01-09] MEDS ORDERED: AMIODARONE HCL 200 MG TAB PO SCH (09:00)
[2022-01-09] MEDS ORDERED: Febuxostat [Uloric] 40 MG Tablet PO SCH (09:00)
[2022-01-09] MEDS ORDERED: HOME MED 1 EA UNK (Zinc [Zinc] 50 MG Tablet) PO SCH (09:00)
[2022-01-09] MEDS ORDERED: FUROSEMIDE 40 MG TABLET PO SCH (09:00)
[2022-01-09] MEDS ORDERED: ENOXAPARIN 40 MG/0.4 ML SQ SCH (09:00)
[2022-01-09] MEDS ORDERED: ZINC SULFATE 220 MG CAP PO SCH (09:00)
[2022-01-09] MEDS ORDERED: CRANBERRY FRUIT 400 MG PO SCH (09:00)
[2022-01-09] MEDS ORDERED: ASPIRIN EC 81 MG TAB PO SCH (09:00)
[2022-01-09] MEDS ORDERED: MAGNESIUM OXIDE 400 MG TAB PO SCH (09:00)
[2022-01-09] MEDS ORDERED: ursodioL 300 MG CAP PO SCH ×2 (09:00)
[2022-01-09] MEDS ORDERED: PREGABALIN 75 MG CAP PO SCH (09:00)
[2022-01-09] MEDS ORDERED: FERROUS SULFATE 325 MG TAB PO SCH (09:00)
[2022-01-09] MEDS: CEFTRIAXONE 1,000 MG in NA CHLORIDE 0.9% 50 ML IVPB SCH (09:08)
[2022-01-09 09:10] VITALS: BP 160/74; TEMP 97
--- NOTE | 2022-01-09 09:10 | P.SSS ---
Patient History Date of Service: 01/09/22 Reason for admission: CHRONIC URINARY BURNING. History of Present Illness: GRACIELA IS A CHF PATIENT WITH A FIB AND HAS HAD RECURRENT UTI. SHE HAS BEEN THROUGH MANY ANTIBIOTICS INCLUDING ROCEPHIN AND LATER CEFTIN. SHE CAN;T TAKE QUINOLONES SHE IS ON AMIODARONE. FOR LAST ONE WEEK SHE HAS BEEN COMPLAINNG OF UTI AGAIN. SHE HAD CULTURE THAT SHOWED ESBL BEFORE BUT CURED WITH ROCEPHIN AND SHE STARTED TO COMPLAIN AGAIN. I DECIDED TO DO PICC LINE AND IV ABX BUT HER ST CATH URINE IS TOTALLY NORMAL. SHE WILL GO TO DR. CUNHA. SHE HAS BEEN TO DR WINN WITH NOT MUCH RESULTS. SHE ALSO HAS CHRONIC FOOT PAIN AND WILL GO TO A DIFF FOOT DOCTOR NOTHING FOR FASICITIS HAS HELPED. SHE IS STABLE TO GO HOME. Allergies No Known Allergies Allergy (Verified 01/01/21 20:48) Home medications list reviewed: Yes Home Medications: Febuxostat [Uloric] 80 mg PO DAILY 03/16/13 Aspirin [Aspirin EC 81 MG] 81 mg PO DAILY 01/01/21 Levothyroxine [Synthroid*] 125 mcg PO DAILY 01/01/21 Liothyronine Sodium [Cytomel] 5 mcg PO DAILY 01/01/21 ursodioL [Ursodiol] 300 mg PO BID 01/01/21 Amiodarone HCl [Cordarone*] 200 mg PO DAILY tab 01/17/21 Atorvastatin Calcium [Lipitor*] 5 mg PO BEDTIME 02/19/21 Ferrous Sulfate [Ferrous Sulfate*] 325 mg PO DAILY 02/19/21 Furosemide [Lasix*] 40 mg PO DAILY 02/19/21 Magnesium Oxide [Magnesium] 400 mg PO BID 02/19/21 Oxybutynin Chloride [Ditropan*] 15 mg PO DAILY 02/19/21 Pregabalin [Lyrica*] 150 mg PO BID 02/19/21 Ascorbic Acid [Vitamin C] 1,000 mg PO DAILY 10/06/21 Cranberry Fruit [Cranberry] 300 mg PO DAILY 10/06/21 Diphenhydramine [Benadryl*] 25 mg PO PRN PRN 10/06/21 Rabeprazole Sodium 20 mg PO DAILY 10/06/21 Zinc 50 mg PO DAILY 10/06/21 - Past Medical/Surgical History Has patient received pneumonia vaccine in the past: Yes Diabetic: No -: CHF -: DM -: GERD -: Neuropathy -: Insomnia -: Hyperlipidemia -: overactive bladder -: Hypothyroidism -: Right Shoulder Replacement -: Bilateral knee replacment -: Hysterectomy -: ULE Melanoma removal -: Tonsilectomy -: Adnoidectomy -: Bilateral eye surgery 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 moist/pink, EOMI, Sclerae nonicteric Neck: Supple, 2+ carotid pulse no bruit, No LAD, Without JVD or thyroid abnormality Respiratory: Clear to auscultation bilaterally, Normal air movement Cardiovascular: Regular rate/rhythm, Normal S1 S2 Gastrointestinal: Normal bowel sounds, No tenderness Musculoskeletal: No tenderness Integumentary: No rashes Neurological: Normal gait, Normal speech, Normal strength at 5/5 x4 extr, Normal tone, Normal affect Lymphatics: No axilla or inguinal lymphadenopathy - Studies Laboratory Data (last 24 hrs) 01/09/22 06:32: Sodium 142, Potassium 3.7, BUN 20 H, Creatinine 1.10, Glucose 86, Magnesium 2.3 01/09/22 06:32: WBC 7.4, Hgb 10.3 L, Hct 30.9 L, Plt Count 134 L 01/08/22 14:41: Sodium 141, Potassium 4.0, BUN 19 H, Creatinine 1.19, Glucose 94, Phosphorus 2.7, Magnesium 2.5 H, Total Bilirubin 0.4, AST 18, ALT 17, Alkaline Phosphatase 88 01/08/22 14:41: PT 11.5, INR 1.04, APTT 34.2 01/08/22 14:41: WBC 8.6, Hgb 11.7 L, Hct 35.1 L, Plt Count 160 - Diagnosis (Problem(s)) (1) Dysuria Current Visit: Yes Status: Acute Plan: IV ROCEPHIN. DC HOME STABLE. UA IS CLEAR. ABOVE SHE WILL NEED DETAILED APPRENTICE FUNERAL DIRECTOR EXAM . I SEE NO SIGNS OF FISTULA. (2) A-fib Current Visit: No Status: Chronic Qualifiers: Atrial fibrillation type: permanent Qualified Code(s): I48.21 - Permanent atrial fibrillation - Disposition Disposition: ROUTINE DISCHARGE Condition: FAIR
[2022-01-09] MEDS ORDERED: ATORVASTATIN 10 MG TAB PO SCH (21:00)
== END 2022-01-09 10:57 | disposition home or self-care (01) ==
LOC: 2ND 14:01
PROVIDERS: ADMIT Internal Medicine; ATTEND Internal Medicine
DX: R30.0 Dysuria (principal); I48.21 Permanent atrial fibrillation; I50.9 Heart failure, unspecified; E11.40 Type 2 diabetes mellitus with diabetic neuropathy, unspecified; K21.9 Gastro-esophageal reflux disease without esophagitis; G47.00 Insomnia, unspecified; E78.5 Hyperlipidemia, unspecified; N32.81 Overactive bladder; E03.9 Hypothyroidism, unspecified; M72.2 Plantar fascial fibromatosis; Z87.440 Personal history of urinary (tract) infections; Z79.82 Long term (current) use of aspirin; Z79.899 Other long term (current) drug therapy; Z85.820 Personal history of malignant melanoma of skin; Z96.611 Presence of right artificial shoulder joint; Z96.653 Presence of artificial knee joint, bilateral; Z90.710 Acquired absence of both cervix and uterus; Z82.49 Family history of ischemic heart disease and other diseases of the circulatory system; Z83.6 Family history of other diseases of the respiratory system
CPT/HCPCS: 87040 ×2; 85025 ×2; 80048 ×2; 36415 ×2; 83735 ×2; 84100; 85610; 80076; 85730; 84443; 81003; 82607; 82306; 71046; G0379; G0378 ×2

== ENCOUNTER 2022-05-25 11:35 | Inpatient (IN) | payer OTHER, BC ==
[2022-05-25 12:44] LABS: SARS-CoV-2 Antigen Rapid Res Negative (Negative)
[2022-05-25 12:45] LABS: Specific Gravity 1.008 (1.005-1.030); Urine Bilirubin NEGATIVE (Negative); Urine Blood Negative (Negative); Urine Clarity Clear (Clear); Urine Color Light-Yellow (Yellow); Urine Glucose NEGATIVE (Negative); Urine Protein NEGATIVE (Negative); Urine Urobilinogen Normal (Normal); Urine pH 7.5 (5.0-7.0)
[2022-05-25 12:46] LABS: Hematocrit 30.5 % (36.0-45.0); Lymphocytes % 13.9 % (15.3-44.8); MCV 90.3 fL (80-100); Protime INR 0.97; RBC Red Blood Cell Count 3.38 M/uL (3.86-4.86)
[2022-05-25 13:16] LABS: Albumin 3.3 g/dL (3.4-5.0); Bilirubin Direct 0.1 mg/dL (0-0.2); Bilirubin Total 0.4 mg/dL (0.2-1.0); Phosphorus 3.5 mg/dL (2.5-4.9); Potassium 4.3 mmol/L (3.5-5.1); Protein, Total 7.1 g/dL (6.4-8.2)
[2022-05-25 13:17] LABS: Magnesium 2.6 mg/dL (1.8-2.4); Thyroid Stimulating Hormone 5.14 uIU/mL (0.360-3.740)
--- OUTSIDE RECORDS SUMMARY | 2022-05-25 14:42 | XMS REPORT | Continuity of Care Document ---
:1940 Author Organization [facility] t Address [address] [place] [address] Care Team Providers Name Role Phone [phone] Primary Care Physician Unavailable Eagle Osborn Attending Clinician Unavailable SYSTEM, PROVIDER NOT IN Attending Clinician Unavailable BE MATTHEWS Attending Clinician Unavailable Be Matthews Attending Clinician ALIE SHELL Attending Clinician Unavailable BRANDEN KAPADIA Attending Clinician Unavailable MD BRANDEN KAPADIA Attending Clinician Unavailable THELMA HEATH Attending Clinician Unavailable Rachele Knight Attending Clinician JEANINE LOWERY Attending Clinician Unavailable Eddie Solis V Admitting Clinician Unavailable BE MATTHEWS Admitting Clinician Unavailable BRANDEN KAPADIA Admitting Clinician Unavailable MD BRANDEN KAPADIA Admitting Clinician Unavailable Payers Payer Name Policy Type Policy Number Effective Date Expiration Date S ource [place] [id number] 2017 00:00:00 [place] [id number] 2014 00:00:00 MEDICARE PART A [id number] 2004 AND B 00:00:00 Problems Condition Condition Condition Status Onset Resolution Last Treating Co mments Source Name Details Category Date Date Treatment Clinician Date CICATRICIA CICATRICI Diagnosis Active 2022-01-11 Shannan GUZMÁN 01-06 16:39:00 l ECTROPION ECTROPION 00:00: Herm eder OF LEFT OF LEFT 00 LOWER EYEL LOWER EYEL Active 01/06/2022 [facility] CHF CHF Disease Active Methodi (congestiv (congestiv 19 st e heart e heart 00:00: Hospita failure), failure), 00 l NYHA class NYHA class I, acute I, acute on on chronic, chronic, combined combined Persistent Persistent Disease Active Overview : Methodi atrial atrial 01-[address] fibrillati fibrillati 00:00: g of this Hospita on on 00 note l might be different from the original. Added automatic ally from request for surgery [id number] N28.89 - N28.89 - Diagnosis Active 2018-082019-08-02 Memoria OTHER OTHER 08:59:00 l SPECIFIED SPECIFIED 00:01: Herm eder DISORDERS DISORDERS 00 OF K OF K Active 07/31/2019 JEANNETTED Wade N28.89-OTH N28.89-OT Diagnosis Active 2018-082019-09-15 Memoria ER HER 15:33:00 l SPECIFIED SPECIFIED 00:00: Herm eder DISORDERS DISORDERS 00 OF KIDN OF KIDN Active 07/30/2019 [place] Malignant Malignant Problem Resolve 2022-01-10 Memoria melanoma melanoma d 00:19:24 l (disorder) (disorder) He rmann Resolved Problem 01/10/2022 left arm [facility] Atrial Atrial Problem Active 2022-01-10 Robert micky fibrillati fibrillati 00:19:24 l on on Wild (disorder) (disorder) Active Problem 01/10/2022 pt has watchman device [facility] Chronic Chronic Problem Active 2022-01-10 Me moria kidney kidney 00:19:24 l disease disease Rayne (disorder) (disorder) Active Problem 01/10/2022 [facility] Fibrosis Fibrosis Problem Active 2022-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 00:19:24 l (disorder) (disorder) He rmann Active Problem 01/10/2022 [facility] Gastroesop Problem Active 2022-01-10 M emoria hageal Gastroesop 00:19:24 l reflux hageal Rayne disease reflux (disorder) disease (disorder) Active Problem 01/10/2022 [facility] Hyperchole Problem Active 2022-01-10 M emoria sterolemia Hyperchole 00:19:24 l (disorder) sterolemia He rmann (disorder) Active Problem 01/10/2022 [facility] Hypertensi Hypertens Problem Active 2022-01-10 Memoria ve [place] 00:19:24 l disorder, disorder, Herm eder systemic systemic arterial arterial (disorder) (disorder) Active Problem 01/10/2022 [facility] Hypothyroi Problem Active 2022-01-10 M emoria dism Hypothyroi 00:19:24 l (disorder) dism Kobi n (disorder) Active Problem 01/10/2022 [facility] Neuropathy Neuropath Problem Active 2022-01-10 Memoria (disorder) y 00:19:24 l (disorder) Kobi n Active Problem 01/10/2022 [facility] Osteoarthr Osteoarth Problem Active 2022-01-10 Memoria itis ritis 00:19:24 l (disorder) (disorder) He rmann Active Problem 01/10/2022 [facility] Simple Simple Problem Active 2022-01-10 Robert micky obesity obesity 00:19:24 l (disorder) (disorder) He rmann Active Problem 01/10/2022 [facility] Sleep Sleep Problem Active 2022-01-10 Memor ia apnea apnea 00:19:24 l (finding) (finding) Herm eder Active Problem 01/10/2022 does not use cpap [facility] Urinary Urinary Problem Active 2022-01-10 M emoria incontinen incontinen 00:19:24 l ce ce Wild (finding) (finding) Active Problem 01/10/2022 [facility] OTHER OTHER Diagnosis Active 2019-09-15 Me moria SPECIFIED SPECIFIED 15:33:00 l DISORDERS DISORDERS Herm eder OF KIDNEY OF KIDNEY AND AND Active [facility] UNSPECIFIE UNSPECIFI Diagnosis Active 2019-09-15 Memoria D URINARY ED URINARY 15:33:00 l INCONTINEN INCONTINEN He rmann CE CE Active [facility] CONSTANT CONSTANT Diagnosis Active 2021-12-30 Memoria EXOPHTHALM EXOPHTHALM 09:38:00 l OS, OS, Rayne BILATERAL BILATERAL Active [facility] History of Past Illness Condition Condition Condition Status Onset Resolution Last Treating Co mments Source Name Details Category Date Date Treatment Clinician Date Exposure Exposure Problem 2022-01-10 2022-01-10 Memoria keratoconj keratoconj 01-07 00:19:24 00:19:24 l unctivitis unctivitis 19:00: He rmeder , , 00 bilateral bilateral 01/07/2022 01/10/2022 [facility] Unspecifie Problem 2022-01-10 2022-01-10 Memoria d Unspecifie 01-07 00:19:24 00:19:24 l entropion d 19:00: Wild of right entropion 00 lower of right eyelid lower eyelid 01/07/2022 01/10/2022 [facility] Unspecifie Unspecifi Problem 2022-01-10 2022-01-10 Memoria d ed 01-07 00:19:24 00:19:24 l ectropion ectropion 19:00: Herm eder of left of left 00 lower lower eyelid eyelid 01/07/2022 01/10/2022 [facility] Unspecifie Unspecifi Problem 2022-01-10 2022-01-10 Memoria d ed 01-07 00:19:24 00:19:24 l exophthalm exophthalm 18:59: He rmeder os os 00 01/07/2022 01/10/2022 [facility] Brow Brow Problem 2022-01-10 2022-01-10 M emoria ptosis, ptosis, 01-07 00:19:24 00:19:24 l unspecifie unspecifie 18:59: He rmann d d 00 01/07/2022 01/10/2022 [facility] Unspecifie Unspecifi Problem 2022-01-10 2022-01-10 Memoria d ptosis ed ptosis 01-07 00:19:24 00:19:24 l of of 18:59: Rayne bilateral bilateral 00 eyelids eyelids 01/07/2022 [facility] Allergies, Adverse Reactions, Alerts Allergy Allergy Status Severity Reaction(s) Onset Inactive Treating Comm ents Source Name Type Date Date Clinician No Known DA Active [facility] Allergie 10-27 Clear s 00:00: Collins 00 [facility] No Known DA Active [facility] Allergie 10-27 Clear s 00:00: Collins 00 [facility] No Known DA Active U [facility] Drug 02-10 Clear Allergie 00:00: Collins s [facility] No Known DA Active U [facility] Drug 02-10 Clear Allergie 00:00: Collins s 00 [facility] Social History Social Habit Start Date Stop Date Quantity Comments Source Social History 2021-12-17 2021-12-17 [facility] 15:55:16 15:55:16 Sex Ass[birth year] [facility] 00:00:00 00:00:00 Smoking Status Start Date Stop Date Source Tobacco smoking consumption unknown [facility] Medications Ordered Filled Start Stop Current Ordering Indication Dosage Frequency Signature Comments Components Source Medication Medication Date Date Medication? Clinician (SIG) Name Name sugammadex No Route: IV, M emoria (ANES) 01-07 Drug form: l 19:24: SOLN, Rayne ONCE, Stop date: 01/07/22 14:24:00 CDT ondansetron No Route: IV, Memoria (ANES) 01-07 Drug form: l 19:18: INJ, ONCE, Wild 00 Stop date: 01/07/22 14:18:00 CDT ANES No 10 mg, Memoria hydrALAZINE 01-07 Route: l 18:59: IVP, Wild 00 Q20Min, Dosing Weight 86.1, kg, PRN Elevated BP, Start date: 01/07/22 13:59:00 CDT, Duration: 2 doses or times, Stop date: Limited # of times ANES No 1,000 mg, Memoria acetaminoph 01-07 Route: PO, l en 18:59: Drug form: Wild 00 TAB, ONCE, Dosing Weight 86.1, kg, PRN Pain Score 1-3, Start date: 01/07/22 13:59:00 CDT ANES 2021-0 No 5 mg, Memoria oxyCODONE 5 01-07 Route: PO, l mg 18:59: Drug form: Wild immediate 00 TAB, Q4H, release Dosing tablet Weight 86.1, kg, PRN Pain Score 4-6, Start date: 01/07/22 13:59:00 CDT, Duration: 30 day, Stop date: 02/06/22 13:58:00 CDT ANES 2021-0 No 0.2 mg, Memoria HYDROmorpho 01-07 Route: l ne 18:59: IVP, Rayne 00 Q5Min, Dosing Weight 86.1, kg, PRN Pain Score 7-10, Start date: 01/07/22 13:59:00 CDT, Duration: 4 doses or times, Stop date: Limited # of times ANES 0 No 0.2 mg, Memoria flumazenil 01-07 Route: l 18:59: IVP, PRN, Rayne 00 Dosing Weight 86.1, kg, PRN Benzodiaze pine Reversal, Initial dose, Start date: 01/07/22 13:59:00 CDT, Duration: 30 day, Stop date: 02/06/22 13:58:00 CDT ANES 2021-0 No 0.4 mg, Memoria naloxone 01-07 Route: l 18:59: IVP, Rayne 00 Q2MIN, Dosing Weight 86.1, kg, PRN Narcotic Reversal, Start date: 01/07/22 13:59:00 CDT, Duration: 8 doses or times, Stop date: Limited # of times ANES 2021-0 No 4 mg, Memoria ondansetron 01-07 Route: l 18:59: IVP, ONCE, Wild 00 Dosing Weight 86.1, kg, PRN Nausea & Vomiting, Start date: 01/07/22 13:59:00 CDT ANES 2021-0 No 6.25 mg, Memoria promethazin 01-07 Route: l e 18:59: IVPB, Wild 00 ONCE, Dosing Weight 86.1, kg, PRN Nausea & Vomiting, Start date: 01/07/22 13:59:00 CDT atropine 2021-0 No Route: IV, Mem oria (ANES) 01-07 Drug form: l 18:17: INJ, ONCE, Stop date: 01/07/22 13:17:00 CDT lidocaine No Route: IV, Me moria (ANES) 01-07 Drug form: l 18:07: INJ, ONCE, Stop date: 01/07/22 13:07:00 CDT propofol No Route: IV, Mem oria (ANES) 01-07 Drug form: l 18:07: INJ, ONCE, Stop date: 01/07/22 13:07:00 CDT rocuronium No Route: IV, M emoria (ANES) 01-07 Drug form: l 18:07: INJ, ONCE, Stop date: 01/07/22 13:07:00 CDT glycopyrrol No Route: IV, Memoria ate (ANES) 01-07 Drug form: l 18:07: INJ, ONCE, Stop date: 01/07/22 13:07:00 CDT ketAMINE No Route: IV, Mem oria (ANES) 01-07 Drug form: l 18:07: INJ, ONCE, Stop date: 01/07/22 13:07:00 CDT Isolyte S No Route: IV, Me moria PH 7.4 01-07 Total l (ANES) 500 18:00: Volume: Herm eder mL 00 500, Start date: 01/07/22 13:00:00 CDT, Stop date: 01/07/22 14:00:00 CDT EPINEPHrine No Route: IV, Memoria (ANES) 01-07 Drug form: l 17:26: INJ, ONCE, Stop date: 01/07/22 12:26:00 CDT ceFAZolin No Route: IV, Me moria (ANES) 01-07 Drug form: l 17:10: INJ, ONCE, Stop date: 01/07/22 12:10:00 CDT Isolyte S No Route: IV, Me moria PH 7.4 01-07 Total l (ANES) 1000 16:00: Volume: Her sykes mL 00 1,000, Start date: 01/07/22 11:00:00 CDT, Stop date: 01/07/22 12:00:00 CDT Isolyte S 2-0 No 1,000 mL, Mem oria PH 7.4 01-07 Rate: 75 l 1,000 mL 15:01: ml/hr, Wild Infuse over: 13.3 hr, Route: IV, Dosing Weight 84 kg, Total Volume: 1,000, Start date: 01/07/22 10:01:00 CDT, Duration: 30 day, Stop date: 02/06/22 10:00:00 CDT, BSA: 2 m2, 0 acetaminoph 2021-0 No 1,000 mg, M emoria en 01-07 Route: PO, l 15:01: Drug form: Rayne TAB, PRE OP, Dosing Weight 84, kg, Priority: NOW, Start date: 01/07/22 10:01:00 CDT, Duration: 1 doses or times rosuvastati Yes 5mg QD Take 5 mg M ethodi n (CRESTOR) 6-[address] 5 mg tablet 19:01: daily. Hosp radames 13 l liothyronin Yes 5ug QD Take 5 mcg Methodi e (CYTOMEL) 6-[address] 5 MCG 19:01: daily. Hospita tablet 13 l magnesium Yes 400mg Q.5D Take 400 Met hodi oxide 6-[address] (MAG-OX) 19:01: mouth 2 Hospit a 400 mg 13 (two) l (241.3 mg times a magnesium) day. tablet oxybutynin Yes 5mg QD Take 5 mg Me thodi (DITROPAN) 6-[address] 5 MG tablet 19:01: daily. Hosp radames 13 l amIODarone 0 Yes 200mg QD Take 200 Me thodi (PACERONE) 6-[address] 200 MG 19:01: mouth Hospita tablet 13 daily. l pregabalin 0 Yes 75mg QD Take 75 mg M ethodi (LYRICA) 75 6-[address] MG capsule 19:01: daily. Hospi ta 13 l ursodioL 0 Yes 300mg Q.5D Take 300 Meth beth (ACTIGALL) 6-[address] 300 mg 19:01: mouth 2 Hospita capsule 13 (two) l times a day. ferrous Yes 18mg Q.[id number] Take 18 mg Methodi sulfate 325 6-[id number] (65 FE) MG 19:01: 3D (three) Hosp radames tablet 13 times a l day with meals. Patient takes 18mg PO TID febuxostat Yes 40mg QD Take 40 mg M ethodi (ULORIC) 40 6-[address] mg tablet 19:01: daily. Hospit a 13 l lidocaine Yes 1{patch Q24H Place 1 Me thodi (LIDODERM) 6-25 } patch on st 5 % 19:01: the skin Hospita 13 daily. l Apply to neck for pain reliefRemo ve & Discard patch within 12 hours or as directed [place] [id number] 5mL Q6H Take 5 mL Methodi ifenesin 6-[address] (GUAIFENESI 19:01: every 6 Hos evelyn N AC) 13 (six) l 10-100 mg/5 hours as mL liquid needed for cough .acute pain. aspirin Yes 81mg QD Take 81 mg Meth beth (ECOTRIN) 6-[address] 81 MG 19:01: daily. Hospita enteric 13 l coated tablet clopidogreL Yes 75mg QD Take 75 mg Methodi (PLAVIX) 75 6-[address] mg tablet 19:01: daily. ON Hos evelyn 13 HOLD FOR l PROCEDURE TUESDAY levothyroxi Yes 125ug QD Take 125 M ethodi ne 6-[address] (SYNTHROID) 19:01: mouth Hospi ta 125 mcg 13 daily. l tablet pantoprazol Yes 40mg QD Take 40 mg Methodi e 6-[address] (PROTONIX) 19:01: daily. Hospi ta 40 MG EC 13 l tablet meclizine Yes 25mg Q.03830995 Take 2 Methodi (ANTIVERT) 6-[id number] 12.5 mg 00:00: 3D (25 mg Hospita tablet 00 total) by l mouth 3 (three) times a day as needed for dizziness. ipratropium Yes [id number] .5mg Q.[id number] Take 2.5 Methodi (ATROVENT) 6-25 [id number] mL (0.[address] 0.02 % 00:00: 3D total) by Hospit a nebulizer 00 nebulizati l solution on 3 (three) times a day. Aspirin 2018-08 Yes 0 Memoria 2-16 Refill(s) l 16:34: Rayne 00 Vitamin D3 2018-08 Yes 1,000 Memori a 1000 intl 2-16 IntlUnit = l units oral 16:34: 1 cap, PO, H ermann capsule 00 Daily, 0 Refill(s) Benadryl 2018-08 Yes 0 Memoria 2-16 Refill(s) l 16:34: Rayne 00 colesevelam 2018-08 Yes 1,875 mg = Memoria 625 mg oral 2-16 3 tab, PO, l tablet 16:34: BID, 0 Wild 00 Refill(s) 24 HR 2018-08 Yes 50 mg = 1 Memoria mirabegron 2-16 tab, PO, l 50 MG 16:03: Daily, # Rayne Extended 00 30 tab, 0 Release Refill(s), Tablet Pharmacy: [Myrbetriq] [facility] [place] liothyronin 2018-08 Yes 5 Memori a e 5 mcg 2-16 microgram l oral tablet 15:29: = 1 tab, He rmann 00 PO, Daily, 0 Refill(s) RABEprazole 2018-08 Yes 20 mg = 1 M emoria 20 mg oral 2-16 tab, PO, l enteric 15:29: Daily, 0 Kobi n coated 00 Refill(s) tablet rosuvastati 2018-08 Yes 5 mg = 1 Me moria n 5 mg oral 2-16 cap, PO, l capsule 15:29: Daily, 0 Kobi n 00 Refill(s) Levothyroxi 2018-08 Yes 100 Memori a ne Sodium 2-16 microgram l 0.1 MG Oral 15:29: = 1 tab, He rmann Tablet 00 PO, Daily, [Synthroid] 0 Refill(s) telmisartan 2018-08 Yes 80 mg = 1 M emoria 80 mg oral 2-16 tab, PO, l tablet 15:29: Daily, 0 Wild 00 Refill(s) febuxostat 2018-08 Yes 80 mg = 1 Me moria 80 MG Oral 2-16 tab, PO, l Tablet 15:29: Daily, # Wild [Uloric] 00 30 tab, 0 Refill(s) carvedilol 2018-08 Yes 12.5 mg = Me moria 12.5 mg 2-16 1 tab, PO, l oral tablet 15:29: BID, 0 Herm eder 00 Refill(s) ursodiol 2018-08 Yes 300 mg = 1 Mem oria 300 mg oral 2-16 cap, PO, l capsule 15:29: BID, 0 Wild 00 Refill(s) pregabalin 2018-08 Yes 150 mg = 1 M emoria 150 MG Oral 2-16 cap, PO, l Capsule 15:29: BID, 0 Rayne [Lyrica] 00 Refill(s) doxazosin 4 2018-08 Yes 4 mg = 1 Me moria mg oral 2-16 tab, PO, l tablet 15:29: Daily, 0 Wild 00 Refill(s) oxybutynin 2018-08 Yes 15 mg = 1 Me moria 15 mg oral 2-16 tab, PO, l tablet, 15:29: Daily, 0 Kobi n extended 00 Refill(s) release Vital Signs Vital Name Observation Time Observation Value Comments Source Respitory Rate 2022-01-07 21:45:00 Memori al Wild Systolic (mm Hg) 2022-01-07 21:45:00 Robert rial Rayne Diastolic (mm Hg) 2022-01-07 21:45:00 Mem orial Rayne Respitory Rate 2022-01-07 21:30:00 Memori al Wild Systolic (mm Hg) 2022-01-07 21:30:00 Robert rial Wild Diastolic (mm Hg) 2022-01-07 21:30:00 Mem orial Rayne Respitory Rate 2022-01-07 21:15:00 Memori al Rayne Systolic (mm Hg) 2022-01-07 21:15:00 Robert rial Rayne Diastolic (mm Hg) 2022-01-07 21:15:00 Mem orial Rayne Height 2022-01-07 15:36:00 167.64 cm Memorial Wild Weight 2022-01-07 15:36:00 Memorial Ray[place] BMI Calculated 2022-01-07 15:36:00 Memori al Rayne Heart Rate 2022-01-07 15:20:00 Memorial Wild Height 2022-01-07 15:01:00 167.64 cm Memorial Wild Weight 2022-01-07 15:01:00 Memorial Wild BMI Calculated 2022-01-07 15:01:00 Memori al Wild Height 2019-08-13 17:17:00 167.64 cm Memorial Wild Weight 2019-08-13 17:17:00 Memorial Rayne BMI Calculated 2019-08-13 17:17:00 Memori al Wild Systolic (mm Hg) 2019-07-16 15:23:00 Robert rial Wild Diastolic (mm Hg) 2019-07-16 15:23:00 Mem orial Rayne Heart Rate 2019-07-16 15:23:00 [facility] Rayne Height 2019-07-16 15:23:00 167.64 cm Memorial Rayne Weight 2019-07-16 15:23:00 Memorial Rayne BMI Calculated 2019-07-16 15:23:00 Memori al Rayne Procedures Procedure Date / Time Performing Clinician Source Performed [id number] 2020-10-29 00:00:00 DEBRA DANIELLE [facility] Measurement of 2019-07-16 16:18:00 [facility] post-voiding residual urine and/or bladder capacity by ultrasound, non-imaging Hysterectomy [facility] and related Memori al Rayne procedures Carpal tunnel release [facility] ermann Shoulder replacement [facility] rmann Knee replacement [facility] Kobi n Tonsillectomy and [facility] Arabella nn adenoidectomy Plan of Care Planned Activity Planned Date Details Comments Source Future Scheduled 2022-03-30 HEPATITIS B VACCINES [facility] Test 23:59:48 (1 of 3 - 3-dose series) [code = HEPATITIS B VACCINES (1 of 3 - 3-dose series)] Future Scheduled 2022-03-30 COVID-19 VACCINE (#1) [facility] Test 23:59:48 [code = COVID-19 VACCINE (#1)] Future Scheduled 2022-03-30 SHINGLES VACCINES (1 [facility] Test 23:59:48 of 2) [code = SHINGLES VACCINES (1 of 2)] Future Scheduled 2022-03-30 65+ PNEUMOCOCCAL Methodi [facility] Test 23:59:48 VACCINE (2 - PCV) [code = 65+ PNEUMOCOCCAL VACCINE (2 - PCV)] Future Scheduled 2022-03-30 INFLUENZA VACCINE Method [facility] Test 23:59:48 [code = INFLUENZA VACCINE] Encounters Start End Encounter Admission Attending Care Care Encounter Source Date/Time Date/Time Type Type Clinicians Facility Department ID 2022-01-29 Outpatient [facility] [id number] [place] 12:49:04 [id number] [facility] 2022-01-13 Outpatient [facility] [id number] [place] 15:20:56 [id number] [facility] 2020-11-26 Inpatient JORDAN Osborn, [facility] [id number] [facility] 14:00:00 Eagle 21 [facility] 2020-10-17 Inpatient Anurag, HCACL [facility] [id number] [facility] 17:21:45 Eagle 88 [facility] 2020-10-13 Outpatient TAYA CASH MDA [id number] 13:14:56 PROVIDER Obed tidwell 2019-07-30 Outpatient [facility] PRANAY [id number] 12:25:32 [facility] 2022-01-07 2022-01-08 Day [facility] [id number] Memoria 12:52:00 04:59:[address] 2022-01-07 2022-01-07 Outpatient [id number] 07:52:00 23:59:00 BE 2022-01-07 2022-01-07 Outpatient Byron [facility] [id number] 07:52:00 23:59:00 Be 02 mad 2021-12-23 2021-12-23 Outpatient [id number] 09:15:00 23:59:00 BE 2021-10-23 2021-10-23 Outpatient JORDAN SHELL MDA MDA [id number] 09:17:50 09:17:50 ALIE tidwell 2021-10-23 2021-10-23 Outpatient JORDAN SHELL MDA MDA [id number] 08:18:09 08:18:09 ALIE tidwell 2021-01-17 2021-01-23 Inpatient BRANDEN KAPADIA [facility] [id number] [place] 00:00:00 00:00:[address] 2020-10-03 2020-10-08 Outpatient JORDAN HEATH MDA MDA [id number] 09:19:28 08:21:37 THELMA tidwell 2020-10-03 2020-10-03 Outpatient JORDAN HEATH MDA MDA [id number] 08:59:38 23:59:00 THELMA tidwell 2019-08-13 2019-08-14 Outpatient nullFlavo [facility] 40 [id number] Memoria 17:00:00 05:59:59 r Specialty 01 l [facility] 2019-08-13 2019-08-13 Outpatient Eugene MG [facility] [id number] 11:00:00 23:59:59 Rachele L 2019-08-13 2019-08-13 Outpatient MHIE MHIE [id number] Memoria 11:00:00 11:00:00 01 l Rayne 2019-08-02 2019-08-03 Outpt Diag nullFlavo [facility] [id number] Memoria 14:49:00 05:59:00 Services r Outpatient 00 l [facility] 2019-08-02 2019-08-02 Outpatient EROS KnightOIP MHOIP [id number] 08:49:00 23:59:00 Rachele L 2019-07-16 2019-07-17 Outpatient nullFlavo [facility] 40 [id number] Memoria 15:20:00 05:59:59 r Specialty 00 l [facility] 2019-07-16 2019-07-16 Outpatient EROS KnightMG [facility] [id number] 09:20:00 23:59:59 Rachele L 00 2019-07-16 2019-07-16 Outpatient MHIE MHIE [id number] Memoria 09:20:00 09:20:00 00 jannet Rome 2018-04-27 2018-04-27 Outpatient JORDAN LOWERY MDA MDA [id number] 10:30:01 10:30:01 JEANINE tidwell Results Test Description Test Time Test Comments Results Result Comments Source CARDIAC ENZYMES 2022-01-07 19:47:00 Test Item Value Reference Range Interpretation Comme nts HS Troponin I (test code = HS Troponin I) 9 Roslyn Helm-CoV-2 (COVID-19) RNA [Presence] in Respiratory specimen by KAM with probe [id number] 23:36:23 Test Item Value Reference Range Interpretation Comments SARS-CoV-2 (COVID-19) RNA Not detected Not-Detected [Presence] in Respiratory specimen by KAM with probe detection (test code = 31792-6) Whether patient is employed in a healthcare setting (test code = 51881-7) Whether the patient has symptoms related to condition of interest (test code = 12608-4) Patient was hospitalized because of this condition (test code = 49613-3) Whether the patient was admitted to intensive care unit (ICU) for condition of interest (test code = 61287-2) Whether patient resides in a congregate care setting (test code = 12552-4) [facility] Coronavirus 2019 [id number] 04:35:00 Test Item Value Reference Range Interpretation [...] for the identification of SARS-CoV-2 RNA usingthe Sense Platform M2000 Sy stem under the FDA Emergen cy UseAuthorizatio n. The testing is perf ormed by ben alejandre in the procedures for the Lui M2000 molecular diagnostic SARS-CoV-2 assa y in vitro. BASIC METABOLIC [id number] 16:24:00 Test Item Value Reference Range Interpretation [...] = 10.0 mg/dL 8.0-10.5 N CA) PROTHROMBIN [id number] 16:12:00 Test Item Value Reference Range Interpretation Comments PROTHROMBIN TIME 25.1 SECONDS 9.3-12.9 H PATIENT (test code = PTP) INTERNATIONAL NORMAL 2.3 0.8-1.2 H TARGET INR BY RATIO (test code = INDICATIO N Indication INR) INR1. Prophylax is of venous thrombos is 2.0 - 3.0 (orthoped ic surgery), Proph ylaxis of venous throm bosis (other than hig h-risk surgery), Treat ment of Deep Vein Thrombosis/Pulm onary Embolism, Preve ntion of systemic emb olism - Tissue heart va lves, Acute Myocardia l Infarction (to prevent systemic emboli sm), Valvular heart disease, Atrial Fibrillation, Bileaflet mecha nical valve in aortic position.2. Mec hanical prosthetic valv es (high risk), 2. 5 - 3.5 Presence of Lup us Anticoagulant o r Antiphospholipi d Antibodies, Pre vention of systemic emb olism - Acute Myocardia l Infarction (to prevent recurrent infar ct). CBC W/AUTO [id number] 16:05:00 Test Item Value Reference Range Interpretation [...] (test code NO = MDIFF) CBC W/AUTO [id number] 16:02:00 Test Item Value Reference Range Interpretation [...] code = MDIFF) - XR CHEST 1 [id number] 16:30:00 [facility] : 1940 Sex: F FAX: Eagle Sexton MD [phone] [place]: St: REG FAX: Ysabel Santacruz NP [phone] ----- Name: GRACIELA GARCIA [facility] : 1940 Age/S: 80/F [address] [place] [address] Unit #: [id number] Loc: [place] [address] Phys: Ysabel Santacruz NP Acct: [id number] Dis Date: Status: [facility] PHONE #: Exam Date: 10/29/2020 1514 FAX #: [phone] Reason: post watchman EXAMS: CPT CODE: [id number] XR CHEST 1 V [id number] EXAM: XR CHEST 1 VIEW DATE: 10/29/2020 3:00 PM : 1940; Age: 80 years y/o Female INDICATION: post watchman COMPARISON: December 27, 2020 TECHNIQUE: AP chest. IMPRESSION: Lines,tubes and hardware: Right shoulder arthroplasty is partially seen. Left axillary clips. Atrial appendage closure device is seen. Heart, mediastinum and lungs: Cardiomegaly with mild central venous congestion is seen. Small layering left pleural effusion with underlying airspace disease. Atherosclerotic changes are seen involving the aorta. SL: [id number] at 1630 Reported and signed by: Petra Rivera D.O. 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 Negative [...] y in vitro. - XR CHEST 2 [id number] 14:55:00 [facility] [place] : 1940 Sex: F FAX: Eagle Sexton MD [phone] [place]: St: PRE Name: GRACIELA GARCIA [facility] : 1940 Age/S: 80/F [address] [place] [address] Unit #: [id number] Loc: [place] [address] Phys: Eagle Osborn MD Acct: [id number] Dis Date: Status: PRE SDC PHONE #: [phone] Exam Date: 10/27/2020 1424 FAX #: [phone] Reason: PRE-OP WATCHMAN EXAMS: CPT CODE: [id number] XR CHEST 2 V [id number] EXAM: PA and lateral chest. EXAM DATE: October 27, 2020 CLINICAL HISTORY: PRE-OP WATCHMAN COMPARISON: None Heart is prominent but difficult to assess secondary to moderate left-sided pleural effusion. The right lung is u nremarkable.. The left upper lung is unremarkable. Orthopedic hardware noted in the right proximal humerus. Surgical clips identified in the left axillary region. IMPRESSION: Moderate left-sided pleural effusion. at 4504 Reported and signed by: Jesi Garcia M.D. CC: Eagle Osborn MD Technologist: RT Suad(R) Trnscrd Date/Time/By: 10/27/2020 (7395) : By: Kenneth Orig Print D/T: S: 10/27/2020 (2670) PAGE 1 Signed ReportBASIC METABOLIC PANEL 2020-10-27 [...] code = 9.3 mg/dL 8.0-10.5 N CA) [id number] 14:35:00 Test Item Value Reference Range Interpretation Comments PREALBUMIN (test code = PREALB) 18.9 mg/dL 16.0-40.0 N PROTHROMBIN [id number] 14:34:00 Test Item Value Reference Range Interpretation Comments PROTHROMBIN TIME 30.6 SECONDS 9.3-12.9 H PATIENT (test code = PTP) INTERNATIONAL NORMAL 2.8 0.8-1.2 H TARGET INR BY RATIO (test code = INDICATIO N Indication INR) INR1. Prophylax is of venous thrombos is 2.0 - 3.0 (orthoped ic surgery), Proph ylaxis of venous throm bosis (other than hig h-risk surgery), Treat ment of Deep Vein Thrombosis/Pulm onary Embolism, Preve ntion of systemic emb olism - Tissue heart va lves, Acute Myocardia l Infarction (to prevent systemic emboli sm), Valvular heart disease, Atrial Fibrillation, Bileaflet mecha nical valve in aortic position.2. Mec hanical prosthetic valv es (high risk), 2. 5 - 3.5 Presence of Lup us Anticoagulant o r Antiphospholipi d Antibodies, Pre vention of systemic emb olism - Acute Myocardia l Infarction (to prevent recurrent infar ct). CBC W/AUTO [id number] 14:19:00 Test Item Value Reference Range Interpretation [...] REQUIRED (test code = MDIFF) CBC W/AUTO [id number] 14:19:00 Test Item Value Reference Range Interpretation [...] (test code NO = MDIFF) BASIC METABOLIC [id number] 07:01:00 Test Item Value Reference Range Interpretation [...] RATE (test code = mL/min/1.7 3 GFR) [id number] Range:Healthy A dults >90 mL/min/1.73 m2 For Chronic Kid opal Disease: Stage II Mild Decrease i n GFR 60-90 Stage III Moderate Decrea se in GFR 30-59 Stag e IV Severe Decrease in GFR 15-29 Stage V Kidney Failure <15 CREATININE (test code 1.73 mg/dL 0.55-1.30 H = CREAT) CALCIUM (test code = 8.2 mg/dL 8.2-10.1 N CA) HGB [id number] 05:43:00 Test Item Value Reference Range Interpretation Comments HEMOGLOBIN (test code = HGB) 9.0 g/dL 12-16 L HEMATOCRIT (test code = HCT) 27.7 % 37-47 L URINALYSIS [id number] 14:52:00 Test Item Value Reference Range Interpretation [...] FEW /HPF NONE = BACU) COMPREHENSIVE METABOLIC [id number] 13:30:00 Test Item Value Reference Range Interpretation [...] RATE (test code = GFR) mL/mi n/1.73 [id number] Range:Healthy Adults >90 mL/min/1.73 m2 For Chronic Kidney Disease: Stage II Mild Decrease i n GFR 60-90 Stage III Moderate Decrea se in GFR 30-59 St age IV Severe Decre ase in GFR 15-29 St age V Kidney Failur e <15 CREATININE (test code 1.77 mg/dL 0.55-1.30 [...] N TOTAL (test code = ALKP) PROTHROMBIN [id number] 13:30:00 Test Item Value Reference Range Interpretation Comments PROTHROMBIN TIME 13.2 secs 10.1-12.5 H PATIENT (test code = PTP) INTERNATIONAL NORMAL 1.17 <2.0 RECOMME NDED THERAPEUTIC RATIO (test code = RANGE FOR ORAL INR) ANTICOAGULANTTR EATMENT: CONDITION INRPr ophylaxis of venous throm bosis in 2.0 - 3.0 high- risk medical or surg ical patientsTreatme nt of venous thrombos is 2.0 - 3.0Prevention o f embolism 2.0 - 3.0Prevention o f recurrent embol ism, or 3.0 - 4.5 patie nts with mechanical pros thetic intravascular v hoang IS PATIENT ON ANTICOAGULANTS ? YLIST ANTICOAGULANT/ANTI PLT MEDICATION : AspirinHas Lab been notified if Patient is on Heparin Drip? NOIf Yes, order CBC, OCCULT BLOOD, PT every other day NTHROMBOPLASTIN TIME [id number] 13:30:00 Test Item Value Reference Range Interpretation Comments PTT ACTIVATED (test code = APTT) 34.3 secs 24.9-37.0 N IS PATIENT ON ANTICOAGULANTS ? YLIST ANTICOAGULANT/ANTI PLT MEDICATION : AspirinHas Lab been notified if Patient is on Heparin Drip? NOIf Yes, order CBC, OCCULT BLOOD, PT every other day NCBC W/AUTO [id number] 13:12:00 Test Item Value Reference Range Interpretation [...]
[2022-05-25 15:17] VITALS: BMI 29.3
--- NOTE | 2022-05-25 15:46 | RAD REPORT ---
EXAM DESCRIPTION: RAD - Chest Pa And Lat (2 Views) - 05/25/2022 3:40 pm CLINICAL HISTORY: pain COMPARISON: Chest Pa And Lat (2 Views) dated 01/08/2022; Chest Pa And Lat (2 Views) dated 07/06/2021; Chest Pa And Lat (2 Views) dated 03/20/2021; Chest Pa And Lat (2 Views) dated 02/25/2021; Thorax W/ Con dated 01/16/2021 FINDINGS: Lines: None. Lungs: Likely atelectasis as a result of the small left effusion. Pleural: Small left pleural effusion is decreased in size. Cardiac: The heart size is within normal limits. Atrial appendage exclusion material. Mediastinum: Within normal limits. Bones: No acute fractures. Right shoulder arthroplasty. Other: None IMPRESSION: Mild decrease in size of a small left-sided pleural effusion. No other acute process mayte ntified.
[2022-05-25] MEDS ORDERED: PNEUMOCOCCAL VACCINE 0.5 ML IMVAC ONE (16:00)
[2022-05-25] MEDS ORDERED: INFLUENZA VACCINE (for 6+ mo) 0.5 ML DOSE IMVAC ONE (16:00)
[2022-05-25] MEDS ORDERED: LOPERAMIDE HCL 2 MG CAPSULE PO PRN (17:00)
[2022-05-25] MEDS ORDERED: DIPHENHYDRAMINE 25 MG TAB/CAP PO PRN (17:00)
[2022-05-25] MEDS ORDERED: ONDANSETRON 4 MG/2 ML VIAL IV PRN (17:00)
[2022-05-25] MEDS ORDERED: ONDANSETRON 4 MG (ODT) TAB PO PRN (17:00)
[2022-05-25] MEDS ORDERED: POLYETHYL GLY 3350 17 GM/DOSE PO PRN (17:00)
[2022-05-25] MEDS ORDERED: ENOXAPARIN 40 MG/0.4 ML SQ SCH (17:00)
[2022-05-25] MEDS: ENOXAPARIN 30 MG/0.3 ML SQ SCH (18:11)
[2022-05-25] MEDS: NACHLORIDE 0.45% 1,000 ML IV SCH (18:11)
[2022-05-25] MEDS: Meropenem 1,000 MG in NA CHLORIDE 0.9% 100 ML IV SCH (21:35)
--- NOTE | 2022-05-25 22:32 | RAD REPORT ---
EXAM DESCRIPTION: MRI - Foot Left Wo Cont - 05/25/2022 9:56 pm CLINICAL HISTORY: stepped on glass, wound won't heal COMPARISON: Chest Pa And Lat (2 Views) dated 05/25/2022 FINDINGS: Soft tissue swelling is present. Wound to the plantar aspect of the foot at the level of t he metatarsals. No fractures are identified. No evidence of osteomyelitis. Skin thickening and subcut aneous edema is noted. IMPRESSION: No MR evidence of osteomyelitis.
[2022-05-26 05:58] LABS: Absolute Lymphocytes (CBC) 0.9 K/uL (0.7-4.9); Hematocrit 28.6 % (36.0-45.0); Lymphocytes % 11.9 % (15.3-44.8); MCV 89.7 fL (80-100); MPV 8.6 fL (7.6-11.3); RBC Red Blood Cell Count 3.19 M/uL (3.86-4.86)
[2022-05-26 06:09] LABS: Potassium 3.8 mmol/L (3.5-5.1)
[2022-05-26] MEDS ORDERED: HOME MED 1 EA UNK (Rabeprazole Sodium [Rabeprazole Sodium] 20 MG Tablet.Dr) PO SCH (09:00)
[2022-05-26] MEDS ORDERED: POTASSIUM 25 MEQ EFFERV TAB PO ONE (09:00)
[2022-05-26] MEDS: ursodioL 300 MG CAP PO SCH ×2 (09:00→21:00)
[2022-05-26] MEDS: FUROSEMIDE 40 MG TABLET PO SCH (11:05)
[2022-05-26] MEDS: Meropenem 1,000 MG in NA CHLORIDE 0.9% 100 ML IV SCH ×2 (11:05→21:13)
[2022-05-26] MEDS: PANTOPRAZOLE 40MG TABLET PO SCH (11:05)
[2022-05-26] MEDS: ENOXAPARIN 30 MG/0.3 ML SQ SCH (11:06)
[2022-05-26] MEDS: PREGABALIN 150 MG CAP PO SCH ×2 (11:06→21:13)
[2022-05-26] MEDS: OXYBUTYNIN CHLORIDE 5 MG TAB PO SCH (11:06)
[2022-05-26] MEDS: LOSARTAN POTASSIUM 50 MG TABLET PO SCH (11:06)
[2022-05-26] MEDS: LIOTHYRONINE SOD 5 MCG TAB PO SCH (11:07)
--- NOTE | 2022-05-26 13:16 | P.PN ---
Subjective Date of Service: 05/26/22 Chief Complaint: PAIN AND SWELLING IS BETTER. Subjective: Improving SHE FAILED TWO ORAL ANTIBIOTICS, AUGMENTIN AND ZYVOX WITH INFECTION. SHE IS DOING GREAT ON MERREM. I WILL DO THIS AT HOME FOR 10 DAYS. Physical Examination - Vital Signs Temperature: 96.3 F Blood Pressure: 139/69 Pulse: 77 Respirations: 18 Pulse Ox (%): 98 - Physical Exam General: Oriented x3, Mild distress HEENT: Atraumatic, PERRLA, EOMI Neck: Supple, JVD not distended Respiratory: Clear to auscultation bilaterally, Normal air movement Cardiovascular: Regular rate/rhythm, Normal S1 S2 Gastrointestinal: Normal bowel sounds, No tenderness Musculoskeletal: No tenderness Integumentary: No rashes Neurological: Normal speech, Normal tone, Normal affect Lymphatics: No axilla or inguinal lymphadenopathy - Studies Laboratory Data (last 24 hrs) 05/26/22 05:46: Sodium 140, Potassium 3.8, BUN 27 H, Creatinine 1.26, Glucose 96 05/26/22 05:46: WBC 7.70, Hgb 9.9 L, Hct 28.6 L, Plt Count 177 05/25/22 : Sodium Cancelled, Potassium Cancelled, BUN Cancelled, Creatinine Cancelled, Glucose Cancelled, Phosphorus Cancelled, Magnesium Cancelled, Total Bilirubin Cancelled, AST Cancelled, ALT Cancelled, Alkaline Phosphatase Cancelled 05/25/22 : PT Cancelled, INR Cancelled, APTT Cancelled 05/25/22 : WBC Cancelled, Hgb Cancelled, Hct Cancelled, Plt Count Cancelled 05/25/22 12:20: Sodium 138, Potassium 4.3, BUN 32 H, Creatinine 1.53 H, Glucose 91, Phosphorus 3.5, Magnesium 2.6 H, Total Bilirubin 0.4, AST 24, ALT 27, Alkaline Phosphatase 78 Medications List Reviewed: Yes Assessment And Plan - Current Problems (Diagnosis) (1) Cellulitis of foot Current Visit: Yes Status: Acute Plan: IV MERREM DOING GREAT SO FAR IT LOOKS DEEP SEATED ANEROBIC INECTION. THERE IS NO DISCHARGE TO CULTURE BUT WHOLE FOOT IS TENDER. MRI NEG FOR BONE INFECTION.
--- NOTE | 2022-05-26 13:28 | RAD REPORT ---
EXAM DESCRIPTION: RAD - Chest Single View - 05/25/2022 10:59 pm CLINICAL HISTORY: Right PICC Line Placement. COMPARISON: None. TECHNIQUE: Single view AP chest radiograph(s). FINDINGS: Trace diffuse pulmonary interstitial prominence. No focal infiltrate identified. Small lef t-sided pleural effusion. No pneumothorax. Borderline cardiac size. No significant osseous abnormalit y. Right PICC terminates in the distal SVC. Left axillary surgical clips. IMPRESSION: 1. Well-positioned right PICC. 2. Small left pleural effusion. Electronically signed by: Irene Sheets MD 05/25/2022 11:16 PM CDT Due to temporary technical issues with the PACS/Fluency reporting system, reports are being signed by the in house radiologists without review as a courtesy to insure prompt reporting. The interpreting radiologist is fully responsible for the content of the report.
[2022-05-26] MEDS: ROSUVASTATIN 10 MG TAB PO SCH (21:12)
[2022-05-27] MEDS: NACHLORIDE 0.45% 1,000 ML IV SCH (02:20)
[2022-05-27 05:36] LABS: Potassium 3.7 mmol/L (3.5-5.1)
[2022-05-27] MEDS: LEVOTHYROXINE SOD 0.112 MG TAB PO SCH (06:02)
[2022-05-27] MEDS ORDERED: POTASSIUM CL SA 10 MEQ TAB PO ONE (09:00)
[2022-05-27] MEDS: ursodioL 300 MG CAP PO SCH ×2 (09:00→20:50)
[2022-05-27] MEDS: OXYBUTYNIN CHLORIDE 5 MG TAB PO SCH (10:35)
[2022-05-27] MEDS: Meropenem 1,000 MG in NA CHLORIDE 0.9% 100 ML IV SCH ×2 (10:35→20:50)
[2022-05-27] MEDS: ENOXAPARIN 30 MG/0.3 ML SQ SCH (10:35)
[2022-05-27] MEDS: LOSARTAN POTASSIUM 50 MG TABLET PO SCH (10:35)
[2022-05-27] MEDS: PANTOPRAZOLE 40MG TABLET PO SCH (10:36)
[2022-05-27] MEDS: PREGABALIN 150 MG CAP PO SCH ×2 (10:36→20:50)
[2022-05-27] MEDS: FUROSEMIDE 40 MG TABLET PO SCH (10:36)
[2022-05-27] MEDS: LIOTHYRONINE SOD 5 MCG TAB PO SCH (10:36)
[2022-05-27] MEDS: ROSUVASTATIN 10 MG TAB PO SCH (20:50)
[2022-05-27] MEDS: ACETAMINOPHEN 325 MG TABLET PO PRN (20:54)
[2022-05-27 22:28] VITALS: O2SAT 97
[2022-05-28 04:20] LABS: Potassium 3.7 mmol/L (3.5-5.1)
[2022-05-28] MEDS: LEVOTHYROXINE SOD 0.112 MG TAB PO SCH (05:24)
[2022-05-28] MEDS ORDERED: POTASSIUM CL SA 10 MEQ TAB PO ONE (08:00)
[2022-05-28] MEDS: OXYBUTYNIN CHLORIDE 5 MG TAB PO SCH (08:40)
[2022-05-28] MEDS: LIOTHYRONINE SOD 5 MCG TAB PO SCH (08:41)
[2022-05-28] MEDS: LOSARTAN POTASSIUM 50 MG TABLET PO SCH (08:41)
[2022-05-28] MEDS: ursodioL 300 MG CAP PO SCH ×2 (08:41→20:59)
[2022-05-28] MEDS: PREGABALIN 150 MG CAP PO SCH ×2 (08:41→20:58)
[2022-05-28] MEDS: ENOXAPARIN 30 MG/0.3 ML SQ SCH (08:41)
[2022-05-28] MEDS: PANTOPRAZOLE 40MG TABLET PO SCH (08:41)
[2022-05-28] MEDS: FUROSEMIDE 40 MG TABLET PO SCH (08:41)
[2022-05-28] MEDS: Meropenem 1,000 MG in NA CHLORIDE 0.9% 100 ML IV SCH ×2 (08:42→20:57)
[2022-05-28] MEDS: NACHLORIDE 0.45% 1,000 ML IV SCH (11:40)
--- NOTE | 2022-05-28 12:59 | PN ---
Subjective: Ms. Del Toro is doing lot better. Her foot pain, cellulitis, tenderness have improved. We are awaiting for insurance company to approve meropenem 1 g twice a day for 10 days. She has a PI CC line. She is stable. She is eager to go home. Physical Examination: Vital Signs: Stable for blood pressure 140/68, temperature 97.5. Laboratory Examination: WBC count 7.7, hemoglobin 9.9, BUN 26, creatinine 1.30. Assessment And Plan: Severe cellulitis after a puncture wound. I suspect anaerobic infection. Cult ure is not possible with no discharge, but clinically she has improved on meropenem but she failed to improve on Bactrim and Zyvox before. So, Bactrim and Zyvox would cover gram-positive bacteria, but not the anaerobic bacteria, which is why she has to go on meropenem for about 10 days. RVD/MODL Voice ID: [id number] Report ID: [id number]
--- NOTE | 2022-05-28 13:42 | P.DS ---
Admission Date: 05/27/22 Discharge Date: 05/28/22 Disposition: DC HOME/HOME HEALTH CARE Discharge Condition: FAIR Reason for Admission: PAIN AND SWELLING IS BETTER. - Problems (1) Cellulitis of foot Current Visit: Yes Status: Acute Hospital Course: GRACIELA STEPPED ON GLASS PARTICLE HAD INFECTION THAT FAILED TO IMPROVE WITH ORAL ABX INCLUDING ZYVOX. SHE NEEDS IV ABX FOR 14 DAYS. MERREM HAS WORKED GREAT FOR HER AND INFECTION IS LOT BETTER. SHE WILL GO HOME TODAY. Vital Signs/Physical Exam: Temp Pulse Resp BP Pulse Ox 97 F 58 17 163/82 H 99 05/28/22 12:00 05/28/22 12:00 05/28/22 12:00 05/28/22 12:00 05/28/22 12:00 Laboratory Data at Discharge: WBC 7.70 K/uL (4.3-10.9) 05/26/22 05:46 Hgb 9.9 g/dL (12.0-15.0) L 05/26/22 05:46 Hct 28.6 % (36.0-45.0) L 05/26/22 05:46 Plt Count 177 K/uL (152-406) 05/26/22 05:46 PT Cancelled 05/25/22 Unknown INR Cancelled 05/25/22 Unknown APTT Cancelled 05/25/22 Unknown Sodium 140 mmol/L (136-145) 05/28/22 03:32 Potassium 3.7 mmol/L (3.5-5.1) 05/28/22 03:32 BUN 27 mg/dL (7-18) H 05/28/22 03:32 Creatinine 1.14 mg/dL (0.55-1.3) 05/28/22 03:32 Glucose 83 mg/dL (74-106) 05/28/22 03:32 Phosphorus Cancelled 05/25/22 Unknown Magnesium Cancelled 05/25/22 Unknown Total Bilirubin Cancelled 05/25/22 Unknown AST Cancelled 05/25/22 Unknown ALT Cancelled 05/25/22 Unknown Alkaline Phosphatase Cancelled 05/25/22 Unknown Home Medications: Liothyronine Sodium [Cytomel] 5 mcg PO DAILY 01/01/21 ursodioL [Ursodiol] 300 mg PO BID 01/01/21 Furosemide [Lasix*] 40 mg PO DAILY 02/19/21 Oxybutynin Chloride [Ditropan*] 15 mg PO DAILY 02/19/21 Pregabalin [Lyrica*] 150 mg PO BID 02/19/21 Rabeprazole Sodium 20 mg PO DAILY 10/06/21 Levothyroxine [Synthroid*] 112 mcg PO [id number] 05/25/22 Rosuvastatin [Crestor*] 5 mg PO BEDTIME 05/25/22 Losartan Potassium 100 mg PO DAILY #90 tab 05/28/22 New Medications: Losartan Potassium 100 mg PO DAILY #90 tab Diet: AHA Followup: Eddie Solis MD [ACTIVE - CAN ADMIT] -
[2022-05-28] MEDS: ROSUVASTATIN 10 MG TAB PO SCH (20:58)
[2022-05-28] MEDS: HYDRALAZINE HCL 25 MG TABLET PO SCH (22:15)
[2022-05-29] MEDS: LEVOTHYROXINE SOD 0.112 MG TAB PO SCH (06:02)
[2022-05-29] MEDS: OXYBUTYNIN CHLORIDE 5 MG TAB PO SCH (08:27)
[2022-05-29] MEDS: LOSARTAN POTASSIUM 50 MG TABLET PO SCH (08:27)
[2022-05-29] MEDS: FUROSEMIDE 40 MG TABLET PO SCH (08:27)
[2022-05-29] MEDS: PREGABALIN 150 MG CAP PO SCH ×2 (08:27→21:23)
[2022-05-29] MEDS: PANTOPRAZOLE 40MG TABLET PO SCH (08:27)
[2022-05-29] MEDS: HYDRALAZINE HCL 25 MG TABLET PO SCH ×2 (08:27→21:23)
[2022-05-29] MEDS: ursodioL 300 MG CAP PO SCH ×2 (08:28→21:22)
[2022-05-29] MEDS: LIOTHYRONINE SOD 5 MCG TAB PO SCH (08:28)
[2022-05-29] MEDS: Meropenem 1,000 MG in NA CHLORIDE 0.9% 100 ML IV SCH ×2 (08:28→21:22)
[2022-05-29] MEDS: ENOXAPARIN 40 MG/0.4 ML SQ SCH (08:28)
[2022-05-29] MEDS ORDERED: POTASSIUM CL SA 10 MEQ TAB PO ONE (09:00)
[2022-05-29 09:30] LABS: Hematocrit 31.9 % (36.0-45.0); Lymphocytes % 14.5 % (15.3-44.8); MPV 8.3 fL (7.6-11.3); RBC Red Blood Cell Count 3.59 M/uL (3.86-4.86)
[2022-05-29 09:35] LABS: Potassium 3.6 mmol/L (3.5-5.1)
--- NOTE | 2022-05-29 21:20 | PN ---
Subjective: Patient is feeling better. Denies chest pain, nausea, vomiting. 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 C linically, she is doing great. Her foot pain has improved significantly. Physical Examination: Vital Signs: Stable. Chest: Clear. Heart: Regular. Abdomen: No guarding, no rebound, no rigidity. Extremities: On foot examination, patient's cellulitis has significantly improved. Is nontender lik e she was before. Tenderness is minimal. On MRI, there is no signs of any foreign body in the region where the glass penetrated her foot. Assessment And Plan: Continue IV meropenem. She has failed oral antibiotics before which is why she is on meropenem. By Tuesday, it will be at least 5 days of antibiotics using already and it looks li ke the insurance company is not able to approve antibiotics at home for some reasons which social wor ker has been talking to insurance company about. Patient is otherwise stable. RVD/MODL Voice ID: [id number] Report ID: [id number]
[2022-05-29] MEDS: ROSUVASTATIN 10 MG TAB PO SCH (21:23)
[2022-05-29] MEDS: ACETAMINOPHEN 325 MG TABLET PO PRN (21:34)
[2022-05-30] MEDS: LEVOTHYROXINE SOD 0.112 MG TAB PO SCH (05:39)
[2022-05-30] MEDS: LIOTHYRONINE SOD 5 MCG TAB PO SCH (08:14)
[2022-05-30] MEDS: HYDRALAZINE HCL 25 MG TABLET PO SCH ×2 (08:14→20:18)
[2022-05-30] MEDS: ursodioL 300 MG CAP PO SCH ×2 (08:14→20:18)
[2022-05-30] MEDS: LOSARTAN POTASSIUM 50 MG TABLET PO SCH (08:14)
[2022-05-30] MEDS: PREGABALIN 150 MG CAP PO SCH ×2 (08:15→20:19)
[2022-05-30] MEDS: OXYBUTYNIN CHLORIDE 5 MG TAB PO SCH (08:15)
[2022-05-30] MEDS: FUROSEMIDE 40 MG TABLET PO SCH (08:15)
[2022-05-30] MEDS: PANTOPRAZOLE 40MG TABLET PO SCH (08:15)
[2022-05-30] MEDS: Meropenem 1,000 MG in NA CHLORIDE 0.9% 100 ML IV SCH ×2 (08:15→20:19)
[2022-05-30] MEDS: ENOXAPARIN 40 MG/0.4 ML SQ SCH (08:16)
[2022-05-30 10:06] LABS: Absolute Lymphocytes (CBC) 1.2 K/uL (0.7-4.9); Hematocrit 31.8 % (36.0-45.0); Lymphocytes % 16.5 % (15.3-44.8); MPV 8.6 fL (7.6-11.3); RBC Red Blood Cell Count 3.57 M/uL (3.86-4.86)
[2022-05-30 10:24] LABS: Potassium 3.7 mmol/L (3.5-5.1)
[2022-05-30] MEDS: ROSUVASTATIN 10 MG TAB PO SCH (20:18)
--- NOTE | 2022-05-30 20:43 | P.PN ---
Subjective Date of Service: 05/30/22 Chief Complaint: PAIN AND SWELLING IS BETTER. Subjective: Improving SHE FAILED TWO ORAL ANTIBIOTICS, AUGMENTIN AND ZYVOX WITH INFECTION. SHE IS DOING GREAT ON MERREM. I WILL DO THIS AT HOME FOR 10 DAYS. DISCHARGE WAS DELAYED BECAUSE OF MANY INSURANCE RELATED REASONS, SEE DC SKIP OPERATOR NOTES FOR DETAILS. SHEIS STABLE. Review of Systems 10-point ROS is otherwise unremarkable Physical Examination - Vital Signs Temperature: 97.0 F Blood Pressure: 147/55 Pulse: 51 Respirations: 16 Pulse Ox (%): 98 - Physical Exam General: Alert, In no apparent distress HEENT: Atraumatic, PERRLA, EOMI Neck: Supple, JVD not distended Respiratory: Clear to auscultation bilaterally, Normal air movement Cardiovascular: Regular rate/rhythm, Normal S1 S2 Gastrointestinal: Normal bowel sounds, No tenderness Musculoskeletal: No tenderness, Other (L FIRE INVESTIGATOR 3/10 BUT NOW JUST DOWN TO THE AREA OF PENETRATION OF THE GLASS. ALL OTHER TENDERNESS OF WHOLE FOOT IS NOT THERE ANY LONGER. ) Integumentary: No rashes Neurological: Normal speech, Normal tone, Normal affect Lymphatics: No axilla or inguinal lymphadenopathy - Studies Laboratory Data (last 24 hrs) 05/30/22 08:50: Sodium 140, Potassium 3.7, BUN 30 H, Creatinine 1.16, Glucose 115 H 05/30/22 08:50: WBC 7.00, Hgb 10.9 L, Hct 31.8 L, Plt Count 156 Microbiology Data (last 24 hrs): 05/25/22 16:06 Blood - Blood Aerobic Blood Culture - Final No growth in 5 days. 05/25/22 16:06 Blood - Blood Anaerobic Blood Culture - Final No growth in 5 days. Medications List Reviewed: Yes Assessment And Plan - Current Problems (Diagnosis) (1) Cellulitis of foot Current Visit: Yes Status: Acute Plan: IV MERREM DOING GREAT SO FAR IT LOOKS DEEP SEATED ANEROBIC INECTION. THERE IS NO DISCHARGE TO CULTURE BUT WHOLE FOOT IS TENDER. MRI NEG FOR BONE INFECTION. DC HOPEFULLY IN AM. SHE IS WILLING TO PAY COPAY FOR NEXT 4 DAYS.
[2022-05-31] MEDS: LEVOTHYROXINE SOD 0.112 MG TAB PO SCH (05:50)
[2022-05-31] MEDS: ENOXAPARIN 40 MG/0.4 ML SQ SCH (09:00)
[2022-05-31] MEDS: OXYBUTYNIN CHLORIDE 5 MG TAB PO SCH (09:22)
[2022-05-31] MEDS: FUROSEMIDE 40 MG TABLET PO SCH (09:23)
[2022-05-31] MEDS: HYDRALAZINE HCL 25 MG TABLET PO SCH (09:23)
[2022-05-31] MEDS: LIOTHYRONINE SOD 5 MCG TAB PO SCH (09:23)
[2022-05-31] MEDS: PANTOPRAZOLE 40MG TABLET PO SCH (09:23)
[2022-05-31] MEDS: LOSARTAN POTASSIUM 50 MG TABLET PO SCH (09:23)
[2022-05-31] MEDS: PREGABALIN 150 MG CAP PO SCH (09:23)
[2022-05-31] MEDS: ursodioL 300 MG CAP PO SCH (09:25)
[2022-05-31] MEDS: Meropenem 1,000 MG in NA CHLORIDE 0.9% 100 ML IV SCH (09:25)
[2022-05-31 10:12] LABS: Absolute Lymphocytes (CBC) 1.2 K/uL (0.7-4.9); Lymphocytes % 13.2 % (15.3-44.8); MCV 88.5 fL (80-100); MPV 8.4 fL (7.6-11.3)
[2022-05-31 12:24] VITALS: BP 152/56; TEMP 96.8
== END 2022-05-31 13:33 | disposition home health service (06) | DRG 603 ==
LOC: 2ND 14:37 → OBSVTOIN 05-27 08:49
PROVIDERS: ADMIT Internal Medicine; ATTEND Internal Medicine
PROC: 02HV33Z Insertion of Infusion Device into Superior Vena Cava, Percutaneous Approach (ICD-10-PCS; principal; 2022-05-25)
DX: L03.116 Cellulitis of left lower limb (principal); I10 Essential (primary) hypertension; E78.00 Pure hypercholesterolemia, unspecified; E03.9 Hypothyroidism, unspecified; D86.9 Sarcoidosis, unspecified; G61.9 Inflammatory polyneuropathy, unspecified; J84.10 Pulmonary fibrosis, unspecified; I48.91 Unspecified atrial fibrillation; Z79.899 Other long term (current) drug therapy; Z23 Encounter for immunization; Z20.822 Contact with and (suspected) exposure to COVID-19; Z85.820 Personal history of malignant melanoma of skin; Z87.19 Personal history of other diseases of the digestive system
CPT/HCPCS: 36415; 36569; 71045; 71046; 80048; 80076; 81003; 82043; 82306; 82570; 82607; 83036; 83735; 84100; 84132; 84439; 84443; 85025; 85610; 85730; 87040; 87077; 87086; 87088; 87186; 87811; 90471; 97161; G0378; G0379; J1650; J2185; Q2035

== ENCOUNTER 2022-08-09 17:58 | Inpatient (IN) | payer BC ==
--- OUTSIDE RECORDS SUMMARY | 2022-08-09 18:02 | XMS REPORT | Continuity of Care Document ---
:1940 Author Organization [facility] t Address [address] [place] [address] Care Team Providers Name Role Phone [phone] Primary Care Physician Unavailable [place] Osborn Attending Clinician Unavailable SYSTEM, PROVIDER NOT IN Attending Clinician Unavailable Rickey Rodas Attending Clinician Unavailable BE MATTHEWS Attending Clinician [...] Date Expiration Date S ource [place] [id number] 2017 00:00:00 [place] POS [id number] 2014 00:00:00 MEDICARE PART A [id number] 2004 AND B 00:00:00 Problems Condition Condition Condition Status Onset Resolution Last Treating Co mments Source Name Details Category Date Date Treatment Clinician Date CICATRICIA CICATRICI Diagnosis Active 2022-01-11 Memoria L AL 01-06 16:39:00 l ECTROPION ECTROPION 00:00: Herm eder OF LEFT OF LEFT 00 LOWER EYEL LOWER EYEL Active 01/06/2022 [facility] CHF CHF Disease Active Methodi (congestiv (congestiv 01-17 st e heart e heart 00:00: Hospita failure), failure), 00 l NYHA class NYHA class I, acute I, acute on on chronic, chronic, combined combined Persistent Persistent Disease Active Overview : Methodi atrial atrial 01-[address] fibrillati fibrillati 00:00: g of this Hospita on on 00 note l might be different from the original. Added automatic ally from request for surgery [id number] N28.89 - N28.89 - Diagnosis Active 2018-082019-08-02 Memoria OTHER OTHER 08:59:00 l SPECIFIED SPECIFIED 00:01: Herm eder DISORDERS DISORDERS 00 OF K OF K Active 07/31/2019 JEANNETTED Art N28.89-OTH N28.89-OT Diagnosis Active 2018-082019-09-15 Memoria ER HER 15:33:00 l SPECIFIED SPECIFIED 00:00: Herm eder DISORDERS DISORDERS 00 OF KIDN OF KIDN Active 07/30/2019 [place] Malignant Malignant Problem Resolve 2022-01-10 Memoria melanoma melanoma d 00:19:24 l (disorder) (disorder) He rmann Resolved Problem 01/10/2022 left arm [facility] Atrial Atrial Problem Active 2022-01-10 Mem oria fibrillati fibrillati 00:19:24 l on on Wild (disorder) (disorder) Active Problem 01/10/2022 pt has watchman device [facility] Chronic Chronic Problem Active 2022-01-10 Me moria kidney kidney 00:19:24 l disease disease Wild (disorder) (disorder) Active Problem 01/10/2022 [facility] Fibrosis Fibrosis Problem Active 2022-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 00:19:24 l (disorder) (disorder) He rmann Active Problem 01/10/2022 [facility] Gastroesop Gastroeso Problem Active 2022-01-10 Memoria hageal phageal 00:19:24 l reflux reflux Wild disease disease (disorder) (disorder) Active Problem 01/10/2022 [facility] Hyperchole Hyperchol Problem Active 2022-01-10 Memoria sterolemia esterolemi 00:19:24 l (disorder) a Kobi tidwell (disorder) Active Problem 01/10/2022 [facility] Hypertensi Hypertens Problem Active 2022-01-10 Memoria ve [place] 00:19:24 l disorder, disorder, Herm eder systemic systemic arterial arterial (disorder) (disorder) Active Problem 01/10/2022 [facility] Hypothyroi Hypothyro Problem Active 2022-01-10 Memoria dism idism 00:19:24 l (disorder) (disorder) He rmann Active Problem 01/10/2022 [facility] Neuropathy Neuropath Problem Active 2022-01-10 Memoria (disorder) y 00:19:24 l (disorder) Kobi tidwell Active Problem 01/10/2022 [facility] Osteoarthr Osteoarth Problem Active 2022-01-10 Memoria itis ritis 00:19:24 l (disorder) (disorder) He rmann Active Problem 01/10/2022 [facility] Simple Simple Problem Active 2022-01-10 Roebrt micky obesity obesity 00:19:24 l (disorder) (disorder) He rmann Active Problem 01/10/2022 [facility] Sleep Sleep Problem Active 2022-01-10 Memor ia apnea apnea 00:19:24 l (finding) (finding) Ayanna eder Active Problem 01/10/2022 does not use cpap [facility] Urinary Urinary Problem Active 2022-01-10 Me moria incontinen incontinen 00:19:24 l ce ce Wild (finding) (finding) Active Problem 01/10/2022 [facility] OTHER OTHER Diagnosis Active 2019-09-15 Mem oria SPECIFIED SPECIFIED 15:33:00 l DISORDERS DISORDERS Herm eder OF KIDNEY OF KIDNEY AND AND Active [facility] UNSPECIFIE UNSPECIFI Diagnosis Active 2019-09-15 Memoria D URINARY ED URINARY 15:33:00 l INCONTINEN INCONTINEN He rmann CE CE Active [facility] CONSTANT CONSTANT Diagnosis Active 2021-12-30 Memoria EXOPHTHALM EXOPHTHALM 09:38:00 l OS, OS, [place] BILATERAL BILATERAL Active [facility] History of Past Illness Condition Condition Condition Status Onset Resolution Last Treating Co mments Source Name Details Category Date Date Treatment Clinician Date Exposure Exposure Problem 2022-01-10 2022-01-10 Memoria keratoconj keratoconj 01-07 00:19:24 00:19:24 l unctivitis unctivitis 19:00: He sarah , , 00 bilateral bilateral 01/07/2022 [facility] Unspecifie Unspecifi Problem 2022-01-10 2022-01-10 Memoria d ed 01-07 00:19:24 00:19:24 l entropion entropion 19:00: Herm eder of right of right 00 lower lower eyelid eyelid 01/07/2022 01/10/2022 [facility] Unspecifie Unspecifi Problem 2022-01-10 2022-01-10 Memoria d ed 01-07 00:19:24 00:19:24 l ectropion ectropion 19:00: Herm eder of left of left 00 lower lower eyelid eyelid 01/07/2022 01/10/2022 [facility] Unspecifie Unspecifi Problem 2022-01-10 2022-01-10 Memoria d ed 01-07 00:19:24 00:19:24 l exophthalm exophthalm 18:59: He rmeder os os 00 01/07/2022 01/10/2022 [facility] Brow Brow Problem 2022-01-10 2022-01-10 M emoria ptosis, ptosis, 01-07 00:19:24 00:19:24 l unspecifie unspecifie 18:59: He rmann d d 00 01/07/2022 01/10/2022 [facility] Unspecifie Unspecifi Problem 2022-01-10 2022-01-10 Memoria d ptosis ed ptosis 01-07 00:19:24 00:19:24 l of of 18:59: [place] bilateral bilateral 00 eyelids eyelids 01/07/2022 01/10/2022 [facility] Allergies, Adverse Reactions, Alerts Allergy Allergy Status Severity Reaction(s) Onset Inactive Treating Comm ents Source Name Type Date Date Clinician No Known DA Active [facility]ie 10-27 Clear s 00:00: [place] 00 [facility] No Known DA Active [facility] Allergie 10-27 Clear s 00:00: Collins 00 [facility] INDOMETH DRUG Active Other MD DENISE DURON 3-11 Cyndi 00:00: n 00 No Known DA Active U [facility] Drug 02-10 Clear Allergie 00:00: Collins s 00 [facility] No Known DA Active U [facility] Drug 02-10 Clear Allergie 00:00: Collins s 00 [facility] Social History Social Habit Start Date Stop Date Quantity Comments Source Social History 2021-12-17 2021-12-17 [facility] 15:55:16 15:55:16 Sex Assigned At [birth year] [facility] 00:00:00 00:00:00 Smoking Status Start Date Stop Date Source Tobacco smoking consumption unknown [facility] Medications Ordered Filled Start Stop Current Ordering Indication Dosage Frequency Signature Comments Components Source Medication Medication Date Date Medication? Clinician (SIG) Name Name sugammadex No Route: IV, M emoria (ANES) 01-07 Drug form: l 19:24: SOLN, [place] 00 ONCE, Stop date: 01/07/22 14:24:00 CDT sugammadex No Route: IV, M emoria (ANES) 01-07 Drug form: l 19:24: SOLN, [place] 00 ONCE, Stop date: 01/07/22 14:24:00 CDT ondansetron No Route: IV, Memoria (ANES) 01-07 Drug form: l 19:18: INJ, ONCE, Wild Stop date: 01/07/22 14:18:00 CDT ondansetron No Route: IV, Memoria (ANES) 01-07 Drug form: l 19:18: INJ, ONCE, [place] Stop date: 01/07/22 14:18:00 CDT ANES No 4 mg, Memoria ondansetron 01-07 Route: l 18:59: IVP, ONCE, [place] 00 Dosing Weight 86.1, kg, PRN Nausea & Vomiting, Start date: 01/07/22 13:59:00 CDT ANES 0 No 6.25 mg, Memoria promethazin 01-07 Route: l e 18:59: IVPB, [place] 00 ONCE, Dosing Weight 86.1, kg, PRN Nausea & Vomiting, Start date: 01/07/22 13:59:00 CDT ANES 0 No 10 mg, Memoria hydrALAZINE 01-07 Route: l 18:59: IVP, [place] 00 Q20Min, Dosing Weight 86.1, kg, PRN Elevated BP, Start date: 01/07/22 13:59:00 CDT, Duration: 2 doses or times, Stop date: Limited # of times ANES 0 No 1,000 mg, Memoria acetaminoph 01-07 Route: PO, l en 18:59: Drug form: [place] 00 TAB, ONCE, Dosing Weight 86.1, kg, PRN Pain Score 1-3, Start date: 01/07/22 13:59:00 CDT ANES 0 No 5 mg, Memoria oxyCODONE 5 01-07 Route: PO, l mg 18:59: Drug form: [place] immediate 00 TAB, Q4H, release Dosing tablet Weight 86.1, kg, PRN Pain Score 4-6, Start date: 01/07/22 13:59:00 CDT, Duration: 30 day, Stop date: 02/06/22 13:58:00 CDT ANES 0 No 0.2 mg, Memoria HYDROmorpho 01-07 Route: l ne 18:59: IVP, [place] 00 Q5Min, Dosing Weight 86.1, kg, PRN Pain Score 7-10, Start date: 01/07/22 13:59:00 CDT, Duration: 4 doses or times, Stop date: Limited # of times ANES 0 No 0.2 mg, Memoria flumazenil 01-07 Route: l 18:59: IVP, PRN, [place] 00 Dosing Weight 86.1, kg, PRN Benzodiaze pine Reversal, Initial dose, Start date: 01/07/22 13:59:00 CDT, Duration: 30 day, Stop date: 02/06/22 13:58:00 CDT ANES 2021-0 No 0.4 mg, Memoria naloxone 01-07 Route: l 18:59: IVP, [place] 00 Q2MIN, Dosing Weight 86.1, kg, PRN [...] promethazin 01-07 Route: l e 18:59: IVPB, [place] 00 ONCE, Dosing Weight 86.1, kg, PRN Nausea & Vomiting, Start date: 01/07/22 13:59:00 CDT ANES 2021-0 No 10 mg, Memoria hydrALAZINE 01-07 Route: l 18:59: IVP, [place] 00 Q20Min, Dosing Weight 86.1, kg, PRN Elevated BP, Start date: 01/07/22 13:59:00 CDT, Duration: 2 doses or times, Stop date: Limited # of times ANES 2021-0 No 1,000 mg, Memoria acetaminoph 01-07 Route: PO, l en 18:59: Drug form: [place] 00 TAB, ONCE, Dosing Weight 86.1, kg, [...] HYDROmorpho 01-07 Route: l ne 18:59: IVP, [place] 00 Q5Min, Dosing Weight 86.1, kg, PRN Pain Score 7-10, Start date: 01/07/22 13:59:00 CDT, Duration: 4 doses or times, Stop date: Limited # of times ANES No 0.2 mg, Memoria flumazenil 01-07 Route: l 18:59: IVP, PRN, [place] 00 Dosing Weight 86.1, kg, PRN Benzodiaze pine Reversal, Initial dose, Start date: 01/07/22 13:59:00 CDT, Duration: 30 day, Stop date: 02/06/22 13:58:00 CDT ANES No 0.4 mg, Memoria naloxone 01-07 Route: l 18:59: IVP, [place] 00 Q2MIN, Dosing Weight 86.1, kg, PRN Narcotic Reversal, Start date: 01/07/22 13:59:00 CDT, Duration: 8 doses or times, Stop date: Limited # of times atropine No Route: IV, Mem oria (ANES) 01-07 Drug form: l 18:17: INJ, ONCE, Stop date: 01/07/22 13:17:00 CDT atropine No Route: IV, Mem oria (ANES) 01-07 [...] ONCE, Stop date: 01/07/22 13:07:00 CDT glycopyrrol 0 No Route: IV, Memoria ate (ANES) 01-07 Drug form: l 18:07: INJ, ONCE, Stop date: 01/07/22 13:07:00 CDT ketAMINE 0 No Route: IV, Mem oria (ANES) 01-07 Drug form: l 18:07: INJ, ONCE, Stop date: 01/07/22 13:07:00 CDT lidocaine 0 No Route: IV, Me moria (ANES) 01-07 [...] Stop date: 01/07/22 13:07:00 CDT Isolyte S 0 No Route: IV, Me moria PH 7.4 01-07 Total l (ANES) 500 18:00: Volume: Herm eder mL 00 500, Start date: 01/07/22 13:00:00 CDT, Stop date: 01/07/22 14:00:00 CDT Isolyte S 0 No Route: IV, Me moria PH 7.4 01-07 Total l (ANES) 500 18:00: Volume: Herm eder mL 00 500, Start date: 01/07/22 13:00:00 CDT, Stop date: 01/07/22 14:00:00 CDT EPINEPHrine 2021-0 No Route: IV, Memoria (ANES) 01-07 Drug form: l 17:26: INJ, ONCE, Stop date: 01/07/22 12:26:00 CDT EPINEPHrine 2021-0 No Route: IV, Memoria (ANES) 01-07 Drug form: l 17:26: INJ, ONCE, Stop date: 01/07/22 12:26:00 CDT ceFAZolin 2021-0 No Route: IV, Me moria (ANES) 01-07 Drug form: l 17:10: INJ, ONCE, Stop date: 01/07/22 12:10:00 CDT ceFAZolin 0 No Route: IV, Me moria (ANES) 01-07 Drug form: l 17:10: INJ, ONCE, Stop date: 01/07/22 12:10:00 CDT Isolyte S 2021-0 No Route: IV, Me moria PH 7.4 01-07 Total l (ANES) 1000 16:00: Volume: Her sykes mL 00 1,000, Start date: 01/07/22 11:00:00 CDT, Stop date: 01/07/22 12:00:00 CDT Isolyte S 2021-0 No Route: IV, Me moria PH 7.4 01-07 Total l (ANES) 1000 16:00: Volume: Her sykes mL 00 1,000, Start date: 01/07/22 11:00:00 CDT, Stop date: 01/07/22 12:00:00 CDT Isolyte S 2021-0 No 1,000 mL, Mem oria PH 7.4 01-07 Rate: 75 l 1,000 mL 15:01: ml/hr, Infuse over: 13.3 hr, Route: IV, Dosing Weight 84 kg, Total Volume: 1,000, Start date: 01/07/22 10:01:00 CDT, Duration: 30 day, Stop date: 02/06/22 10:00:00 CDT, BSA: 2 m2, 0 acetaminoph No 1,000 mg, M emoria en 01-07 Route: PO, l 15:01: Drug form: [place] 00 TAB, PRE OP, Dosing Weight 84, kg, Priority: NOW, Start date: 01/07/22 10:01:00 CDT, Duration: 1 doses or times Isolyte S 2021-0 No 1,000 mL, Mem oria PH 7.4 01-07 Rate: 75 l 1,000 mL 15:01: ml/hr, Infuse over: 13.3 hr, Route: IV, Dosing Weight 84 kg, Total Volume: 1,000, Start date: 01/07/22 10:01:00 CDT, Duration: 30 day, Stop date: 02/06/22 10:00:00 CDT, BSA: 2 m2, 0 acetaminoph 2021-0 No 1,000 mg, M emoria en 01-07 Route: PO, l 15:01: Drug form: [place] 00 TAB, PRE OP, Dosing Weight 84, kg, Priority: NOW, Start date: 01/07/22 10:01:00 CDT, Duration: 1 doses or times liothyronin 2020-0 Yes 5ug QD Take 5 mcg Methodi e (CYTOMEL) 6-[address] 5 MCG 19:01: daily. Hospita tablet 13 l magnesium 2020-0 Yes 400mg Q.5D Take 400 Met hodi oxide 6-[address] (MAG-OX) 19:01: mouth 2 Hospit a 400 mg 13 (two) l (241.3 mg times a magnesium) day. tablet oxybutynin 0 Yes 5mg QD Take 5 mg Me thodi (DITROPAN) 6-[address] 5 MG tablet 19:01: daily. Hosp radames 13 l amIODarone 2020-0 Yes 200mg QD Take 200 Me thodi (PACERONE) 6-[address] 200 MG 19:01: mouth Hospita tablet 13 daily. l pregabalin 2020-0 Yes 75mg QD Take 75 mg M ethodi (LYRICA) 75 6-[address] MG capsule 19:01: daily. Hospi ta 13 l ursodioL 2020-0 Yes 300mg Q.5D Take 300 Meth beht (ACTIGALL) 6-[address] 300 mg 19:01: mouth 2 Hospita capsule 13 (two) l times a day. ferrous 202-0 Yes 18mg Q.[id number] Take 18 mg Methodi sulfate 325 6-25 [id number] mouth [address] (65 FE) MG [...] or as directed by [place] pereira [place] [id number] 5mL Q6H Take 5 mL Methodi ifenesin [...] ta 40 MG EC 13 l tablet rosuvastati Yes 5mg QD Take 5 mg M ethodi n (CRESTOR) 6-[address] 5 mg tablet 19:01: daily. Hosp radames 13 l pantoprazol 2020-0 Yes 40mg QD Take 40 mg Methodi e 6-[address] (PROTONIX) 19:01: daily. Hospi ta 40 MG EC 13 l tablet rosuvastati Yes 5mg QD Take 5 mg [...] 19:01: daily. Hosp radames 13 l amIODarone Yes 200mg QD Take 200 Me thodi (PACERONE) 6-[address] 200 MG 19:01: mouth Hospita tablet 13 daily. l pregabalin Yes 75mg QD Take 75 mg M ethodi (LYRICA) 75 6-[address] MG capsule 19:01: daily. Hospi ta 13 l ursodioL Yes 300mg Q.5D Take 300 Meth beth (ACTIGALL) 6-[address] 300 mg 19:01: mouth 2 Hospita capsule 13 (two) l times a day. ferrous Yes 18mg Q.[id number] Take 18 mg Methodi sulfate 325 6-25 [id number] [facility] [address] (65 FE) MG [...] 12 hours or as directed by MD adams-chacorta Yes [id number] 5mL Q6H Take 5 mL Methodi ifenesin [...] ta 125 mcg 13 daily. l tablet meclizine Yes 25mg Q.[id number] Take 2 Methodi (ANTIVERT) 6-[id number] 12.5 mg 00:00: 3D (25 mg Hospita tablet 00 total) by l mouth 3 (three) times a day as needed for dizziness. ipratropium Yes [id number] .5mg Q.55634007 Take 2.5 Methodi (ATROVENT) 6-25 [id number] mL (0.[address] 0.02 % 00:00: 3D total) by Hospit a nebulizer 00 nebulizati l solution on 3 (three) times a day. meclizine Yes 25mg Q.[id number] Take 2 Methodi (ANTIVERT) 6-[id number] 12.5 mg 00:00: 3D (25 mg Hospita tablet 00 total) by l mouth 3 (three) times a day as needed for dizziness. ipratropium Yes [id number] .5mg Q.62300636 Take 2.5 Methodi (ATROVENT) 6-25 [id number] mL (0.[address] 0.02 % 00:00: 3D total) by Hospit a nebulizer 00 nebulizati l solution on 3 (three) times a day. Aspirin 2018-08 Yes 0 Memoria 2-16 Refill(s) l 16:34: [place] 00 Vitamin D3 2018-08 Yes 1,000 Memori a 1000 intl 2-16 IntlUnit = l units oral 16:34: 1 cap, PO, H ermann capsule 00 Daily, 0 Refill(s) Benadryl 2018-08 Yes 0 Memoria 2-16 Refill(s) l 16:34: [place] 00 colesevelam 2018-08 Yes 1,875 mg = Memoria 625 mg oral 2-16 3 tab, PO, l tablet 16:34: BID, 0 Wild 00 Refill(s) Aspirin 2018-08 Yes 0 Memoria 2-16 Refill(s) l 16:34: [place] 00 Vitamin D3 2018-08 Yes 1,000 Memori a 1000 intl 2-16 IntlUnit = l units oral 16:34: 1 cap, PO, H ermann capsule 00 Daily, 0 Refill(s) Benadryl 2018-08 Yes 0 Memoria 2-16 Refill(s) l 16:34: [place] 00 colesevelam 2018-08 Yes 1,875 mg = Memoria 625 mg oral 2-16 3 tab, PO, l tablet 16:34: BID, 0 [place] 00 Refill(s) 24 HR 2018-08 Yes 50 mg = 1 Memoria mirabegron 2-16 tab, PO, l 50 MG 16:03: Daily, # [place] Extended 00 30 tab, 0 Release Refill(s), Tablet Pharmacy: [Myrbetriq] [facility] [place] 24 HR 2018-08 Yes 50 mg = 1 Memoria mirabegron 2-16 tab, PO, l 50 MG 16:03: Daily, # [place] Extended 00 30 tab, 0 Release Refill(s), Tablet Pharmacy: [Myrbetriq] [facility] [place] liothyronin 2018-08 Yes 5 Memori a e [...] cap, PO, l capsule 15:29: BID, 0 [place] 00 Refill(s) pregabalin 2018-08 Yes 150 mg = 1 M emoria 150 MG Oral 2-16 cap, PO, l Capsule 15:29: BID, 0 [place] [Lyrica] 00 Refill(s) doxazosin 4 2018-08 Yes 4 mg = 1 Me moria mg oral 2-16 tab, PO, l tablet 15:29: Daily, 0 [place] 00 Refill(s) oxybutynin 2018-08 Yes 15 mg = 1 Me moria 15 mg oral 2-16 tab, PO, l tablet, 15:29: Daily, 0 Kobi n extended 00 Refill(s) release liothyronin 2018-08 Yes 5 Memori a e [...] tab, PO, l tablet 15:29: Daily, 0 [place] 00 Refill(s) febuxostat 2018-08 Yes 80 mg = 1 Me moria 80 MG Oral 2-16 tab, PO, l Tablet 15:29: Daily, # [place] [Uloric] 00 30 tab, 0 Refill(s) carvedilol [...] cap, PO, l Capsule 15:29: BID, 0 [place] [Lyrica] 00 Refill(s) doxazosin 4 2018-08 Yes 4 mg = 1 Me moria mg oral 2-16 tab, PO, l tablet 15:29: Daily, 0 [place] 00 Refill(s) oxybutynin 2018-08 Yes 15 mg = 1 Me moria 15 mg oral 2-16 tab, PO, l tablet, 15:29: Daily, 0 Kobi n extended 00 Refill(s) release Vital Signs Vital Name Observation Time Observation Value Comments Source Respitory Rate 2022-01-07 21:45:00 Memori al [place] Systolic (mm Hg) 2022-01-07 21:45:00 Robert rial [place] Diastolic (mm Hg) 2022-01-07 21:45:00 Mem orial [place] Respitory Rate 2022-01-07 21:30:00 Memori al [place] Systolic (mm Hg) 2022-01-07 21:30:00 Robert rial [place] Diastolic (mm Hg) 2022-01-07 21:30:00 Mem orial [place] Respitory Rate 2022-01-07 21:15:00 Memori al [place] Systolic (mm Hg) 2022-01-07 21:15:00 Robert rial [place] Diastolic (mm Hg) 2022-01-07 21:15:00 Mem orial [place] Height 2022-01-07 15:36:00 167.64 cm Memorial [place] Weight 2022-01-07 15:36:00 Memorial [place] BMI Calculated 2022-01-07 15:36:00 Memori al [place] Heart Rate 2022-01-07 15:20:00 Memorial [place] Height 2022-01-07 15:01:00 167.64 cm Memorial [place] Weight 2022-01-07 15:01:00 Memorial [place] BMI Calculated 2022-01-07 15:01:00 Memori al [place] Height 2019-08-13 17:17:00 167.64 cm Memorial [place] Weight 2019-08-13 17:17:00 [facility] [place] BMI Calculated 2019-08-13 17:17:00 Memori al [place] Systolic (mm Hg) 2019-07-16 15:23:00 Robert rial [place] Diastolic (mm Hg) 2019-07-16 15:23:00 Mem orial [place] Heart Rate 2019-07-16 15:23:00 Memorial [place] Height 2019-07-16 15:23:00 167.64 cm Memorial [place] Weight 2019-07-16 15:23:00 [facility] [place] BMI Calculated 2019-07-16 15:23:00 Memori al [place] Procedures Procedure Date / Time Performing Clinician Source Performed [id number] 2020-10-29 00:00:00 RASSA [facility] Measurement of 2019-07-16 16:18:00 [facility] sykes post-voiding residual urine and/or bladder capacity by ultrasound, non-imaging Carpal tunnel release [facility] H ermann Shoulder replacement [facility] rmann Knee replacement [facility] Kobi n Tonsillectomy and [facility] Arabella nn adenoidectomy [facility] Wild Breast biopsy and related Memori al Wild procedures Plan of Care Planned Activity Planned Date Details Comments Source Future Scheduled 2022-07-20 COVID-19 VACCINE (#1) [facility] Test 11:25:01 [code = COVID-19 VACCINE (#1)] Future Scheduled 2022-07-20 SHINGLES VACCINES (1 Met [facility] Test 11:25:01 of 2) [code = SHINGLES VACCINES (1 of 2)] Future Scheduled 2022-07-20 65+ PNEUMOCOCCAL Methodi [facility] Test 11:25:01 VACCINE (2 - PCV) [code = 65+ PNEUMOCOCCAL VACCINE (2 - PCV)] Future Scheduled 2022-07-20 INFLUENZA VACCINE Method [facility] Test 11:25:01 [code = INFLUENZA VACCINE] Future Scheduled 2022-03-30 HEPATITIS B VACCINES Met [facility] Test 23:59:48 (1 of 3 - 3-dose series) [code = HEPATITIS B VACCINES (1 of 3 - 3-dose series)] Future Scheduled 2022-03-30 COVID-19 VACCINE (#1) Me [facility] Test 23:59:48 [code = COVID-19 VACCINE (#1)] Future Scheduled 2022-03-30 SHINGLES VACCINES (1 Met [facility] Test 23:59:48 of 2) [code = SHINGLES VACCINES (1 of 2)] Future Scheduled 2022-03-30 65+ PNEUMOCOCCAL Methodi [facility] Test 23:59:48 VACCINE (2 - PCV) [code = 65+ PNEUMOCOCCAL VACCINE (2 - PCV)] Future Scheduled 2022-03-30 INFLUENZA VACCINE Method [facility] Test 23:59:48 [code = INFLUENZA VACCINE] Encounters Start End Encounter Admission Attending Care Care Encounter Source Date/Time Date/Time Type Type Clinicians Facility Department ID 2022-01-29 Outpatient [facility] [id number] [place] 12:49:04 [id number] [facility] 2022-01-13 Outpatient [facility] [id number] [place] 15:20:56 [id number] [facility] 2020-11-26 Inpatient EL Anurag, PHAN [facility] [id number] [facility] 14:00:00 [place] [facility] 2020-10-17 Inpatient Mariolan, LOLISCL LOLISCL [id number] [facility] 17:21:45 [place] 88 [facility] 2020-10-13 Outpatient SYSTEM, TAYA BAIN [id number] 13:14:56 PROVIDER Obed tidwell 2019-07-30 Outpatient [facility] PRANAY [id number] 12:25:32 [facility] 2022-08-09 2022-08-09 Outpatient [place] [id number] Memoria 10:00:00 10:00:00 02 [facility] 2022-07-20 2022-07-20 Patient Rickey Rodas [id number] Methodi 00:00:00 00:00:00 [facility] [id number] [id number] Hospit [id number] l .8 2022-01-07 2022-01-08 Day [facility] [id number] Memoria 12:52:00 04:59:00 Surgery [facility] 02 [facility] 2022-01-07 2022-01-08 Day [facility] [id number] Memoria 12:52:00 04:59:00 Surgery [facility] 02 [facility] 2022-01-07 2022-01-07 Outpatient BYRON, [facility] [id number] [facility] 07:52:00 23:59:00 BE 2022-01-07 2022-01-07 Outpatient Byron, [facility] [id number] 07:52:00 23:59:00 Be 02 Ahmad 2021-12-23 2021-12-23 Outpatient BYRON, [facility] [id number] [facility] 09:15:00 23:59:00 BE 2021-10-23 2021-10-23 Outpatient JORDAN SHELL MDA MDA [id number] 09:17:50 09:17:50 ALIE tidwell 2021-10-23 2021-10-23 Outpatient JORDAN SHELL MDA MDA [id number] 08:18:09 08:18:09 ALIE tidwell 2021-01-17 2021-01-23 Inpatient BRANDEN KAPADIA [facility] [id number] [place] 00:00:00 00:00:[address] 2020-10-03 2020-10-08 Outpatient JORDAN HEATH MDA MDA [id number] 09:19:28 08:21:37 THELMA tidwell 2020-10-03 2020-10-03 Outpatient JORDAN IVANA, TAYA BAIN [id number] 08:59:38 23:59:00 THELMA tidwell 2019-08-13 2019-08-14 Outpatient nullFlavo [facility] 40 [id number] [facility] 17:00:00 05:59:59 r Specialty 01 l [facility] 2019-08-13 2019-08-14 Outpatient nullFlavo [facility] 40 [id number] Memoria 17:00:00 05:59:59 r Specialty 01 l [facility] 2019-08-13 2019-08-13 Outpatient [place] [facility] [id number] 11:00:00 23:59:59 Rachele L 2019-08-13 2019-08-13 Outpatient MHIE MHIE [id number] Memoria 11:00:00 11:00:00 01 [facility] 2019-08-02 2019-08-03 Outpt Diag nullFlavo MHHS [id number] Memoria 14:49:00 05:59:00 Services r Outpatient 00 l [facility] 2019-08-02 2019-08-03 Outpt Diag nullFlavo MHHS [id number] Memoria 14:49:00 05:59:00 Services r Outpatient 00 l [facility] 2019-08-02 2019-08-02 Outpatient Eugene MHOIP MHOIP [id number] 08:49:00 23:59:00 Rachele L 00 2019-07-16 2019-07-17 Outpatient nullFlavo [facility] Multi 40 [id number] Memoria 15:20:00 05:59:59 r Specialty 00 l [facility] 2019-07-16 2019-07-17 Outpatient nullFlavo [facility] Multi 40 [id number] Memoria 15:20:00 05:59:59 r Specialty 00 l [facility] 2019-07-16 2019-07-16 Outpatient Eugene MHMG MHMG [id number] 09:20:00 23:59:59 Rachele L 00 2019-07-16 2019-07-16 Outpatient MHIE MHIE [id number] Memoria 09:20:00 09:20:00 00 jannet [place] 2018-04-27 2018-04-27 Outpatient JORDAN LOWERY [facility] [id number] 10:30:01 10:30:01 JEANINE tidwell Results Test Description Test Time Test Comments Results Result Comments Source CARDIAC ENZYMES 2022-01-07 19:47:00 Test Item Value Reference Range Interpretation Comme nts HS Troponin I (test code = HS Troponin I) [id number] 19:47:00 Test Item Value Reference Range Interpretation Comments HS Troponin I (test code = HS Troponin 9 I) [facility] ZeygpucPGVH-BcF-5 (COVID-19) RNA [Presence] in Respiratory specimen by KAM with probe [id number] 23:36:23 Test Item Value Reference Range Interpretation Comments SARS-CoV-2 (COVID-19) RNA Not detected Not-Detected [Presence] in Respiratory specimen by KAM with probe detection (test code = 36595-1) Whether patient is employed in a healthcare setting (test code = 82921-8) Whether the patient has symptoms related to condition of interest (test code = 12438-7) Patient was hospitalized because of this condition (test code = 38518-5) Whether the patient was admitted to intensive care unit (ICU) for condition of interest (test code = 10961-8) Whether patient resides in a congregate care setting (test code = 47877-2) CHELI Reyes Coronavirus 2019 [id number] 04:35:00 Test Item Value Reference Range Interpretation [...] for the identification of SARS-CoV-2 RNA usingthe Litbloc M2000 Sy stem under the FDA Emergen cy UseAuthorizatio n. The testing is perf ormed by personneltraine d in the procedures for the Lui M2000 molecular diagnostic SARS-CoV-2 assa y in vitro. BASIC METABOLIC [id number] 16:24:00 Test Item Value Reference Range Interpretation [...] = 10.0 mg/dL 8.0-10.5 N CA) PROTHROMBIN [id number] 16:12:00 Test Item Value Reference Range Interpretation Comments PROTHROMBIN TIME 25.1 SECONDS 9.3-12.9 H PATIENT (test code = PTP) INTERNATIONAL NORMAL 2.3 0.8-1.2 H TARGE T INR BY RATIO (test code = INDICATIO N Indication INR) INR1. Prophylax is of venous thrombos is 2.0 - 3.0 (orthoped ic surgery), Proph ylaxis of venous throm bosis (other than hig h-risk surgery), Treat ment of Deep Vein Thrombosis/Pulm onary Embolism, Preve ntion of systemic emb olism - Tissue heart va lves, Acute Myocardia l Infarction (to prevent systemic embol ism), Valvular heart disease, Atrial Fibrillation, Bileaflet mecha nical valve in aortic position.2. Mec hanical prosthetic valv es (high risk), 2. 5 - 3.5 Presence of Lup us Anticoagulant o r Antiphospholipi d Antibodies, Pre vention of systemic emb olism - Acute Myocardia l Infarction (to prevent recurrent infar ct). CBC W/AUTO [id number] 16:05:00 Test Item Value Reference Range Interpretation [...] (test code NO = MDIFF) CBC W/AUTO [id number] 16:02:00 Test Item Value Reference Range Interpretation [...] code = MDIFF) - XR CHEST 1 [id number] 16:30:00 [facility] 1940 Sex: F FAX: Eagle Sexton MD [phone] [place]: St: REG FAX: Ysabel Santacruz NP [phone] ----- Name: GRACIELA GARCIA [facility] : 1940 Age/S: 80/F [address] [place] [address] Unit #: [id number] Loc: [place] [address] Phys: Ysabel Santacruz NP Acct: [id number] Dis Date: Status: REG [facility] [place] #: Exam Date: 10/29/2020 1514 FAX #: [phone] Reason: post watchman EXAMS: CPT CODE: [id number] XR CHEST 1 V 24552 EXAM: XR CHEST 1 VIEW DATE: 10/29/2020 3:00 PM : 1940; Age: 80 yearsy/o Female INDICATION: post watchman COMPARISON: December 27, 2020 TECHNIQUE: AP chest. IMPRESSION: Lines, tubes and hardware: Right shoulder arthroplasty is partially seen. Left axillary clips. Atrial appendage closure device is seen. Heart, mediastinum and lungs: Cardiomegaly with mild central venous congestion is seen. Small layering left pleural effusion with underlying airspace disease. Atherosclerotic changes are seen involving the aorta. SL: [id number] at 1630 Reported and signed by: Petra Rivera D.O. 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 - XR CHEST 2 [id number] 14:55:00 [facility] : 1940 Sex: F FAX: Eagle Sexton MD [phone] [place]: St: PRE Name: GRACIELA GARCIA [facility] [place] : 1940 Age/S: 80/F [address] [place], [place] [address] Unit #: [id number] Loc: [place] [address] Phys: Eagle Osborn MD Acct: [id number] Dis Date: Status: PRE [facility] [place] #: [phone] Exam Date: 10/27/20204 FAX #: [phone] Reason: PRE-OP WATCHMAN EXAMS: CPT CODE: [id number] XR CHEST 2 V 68421 EXAM: PA and lateral chest. EXAM DATE: October 27, 2020 CLINICAL HISTORY: PRE-OP WATCHMAN COMPARISON: None Heart is prominent but difficult to assess secondary to moderate left-sided pleural effusion. The right lung is unremarkable.. The left upper lung is unremarkable. Orthopedic hardware noted in the right proximal humerus. Surgical clips identified in the left axillary region. IMPRESSION: Moderate left-sided pleural effusion. at 1455 Reported and signed by: Jesi Garcia M.D. CC: Eagle Osborn MD Technologist: RT Suad(Lela) [facility] Date/Time/By: 10/27/2020 (4980) : By: Kenneth Orig Print D/T: S: 10/27/2020 (2408) PAGE 1 Signed ReportBASIC METABOLIC [id number] 14:35:00 Test Item Value Reference Range Interpretation [...] code = 9.3 mg/dL 8.0-10.5 N CA) [id number] 14:35:00 Test Item Value Reference Range Interpretation Comments PREALBUMIN (test code = PREALB) 18.9 mg/dL 16.0-40.0 N PROTHROMBIN [id number] 14:34:00 Test Item Value Reference Range Interpretation [...] (to prevent recurrent infar ct). CBC W/AUTO [id number] 14:19:00 Test Item Value Reference Range Interpretation [...] REQUIRED (test code = MDIFF) CBC W/AUTO [id number] 14:19:00 Test Item Value Reference Range Interpretation [...] (test code NO = MDIFF) BASIC METABOLIC [id number] 07:01:00 Test Item Value Reference Range Interpretation [...] ANDRÉS SOTOMAYOR/MARGARET GUERRAREAD BACK & CONFIRMED? LALA Banks.LAB.MAV 02/07 0701 GLOMERULAR FILTRATION 28.4 >60 Unit o f measure: RATE (test code = mL/min/1.7 3 GFR) [id number] Range:Healthy A dults >90 mL/min/1.73 m2 For Chronic Kid opal Disease: Stage II Mild Decrease i n GFR 60-90 Stage III Moderate Decrea se in GFR 30-59 Stage IV Severe Decrease in GFR 15-29 Stage V Kidney Failure <15 CREATININE (test code 1.73 mg/dL 0.55-1.30 H = CREAT) CALCIUM (test code = 8.2 mg/dL 8.2-10.1 N CA) HGB [id number] 05:43:00 Test Item Value Reference Range Interpretation Comments HEMOGLOBIN (test code = HGB) 9.0 g/dL 12-16 L HEMATOCRIT (test code = HCT) 27.7 % 37-47 L URINALYSIS [id number] 14:52:00 Test Item Value Reference Range Interpretation [...] FEW /HPF NONE = BACU) COMPREHENSIVE METABOLIC [id number] 13:30:00 Test Item Value Reference Range Interpretation [...] RATE (test code = GFR) mL/mi n/1.73 [id number] Range:Healthy Adults >90 mL/min/1.73 m2 For Chronic [...] N TOTAL (test code = ALKP) PROTHROMBIN [id number] 13:30:00 Test Item Value Reference Range Interpretation [...] BLOOD, PT every other day NTHROMBOPLASTIN TIME [id number] 13:30:00 Test Item Value Reference Range Interpretation Comments PTT ACTIVATED (test code = APTT) 34.3 secs 24.9-37.0 N IS PATIENT ON ANTICOAGULANTS ? YLIST ANTICOAGULANT/ANTI PLT MEDICATION : AspirinHas Lab been notified if Patient is on Heparin Drip? NOIf Yes, order CBC, OCCULT BLOOD, PT every other day NCBC W/AUTO [id number] 13:12:00 Test Item Value Reference Range Interpretation [...]
--- NOTE | 2022-08-09 19:22 | RAD REPORT ---
EXAM DESCRIPTION: RAD - Chest Single View - 08/09/2022 7:15 pm CLINICAL HISTORY: SOB Chest pain. COMPARISON: Chest Single View dated 05/25/2022; Chest Pa And Lat (2 Views) dated 05/25/2022; Chest P a And Lat (2 Views) dated 01/08/2022; Chest Pa And Lat (2 Views) dated 07/06/2021 FINDINGS: Portable technique limits examination quality. Moderate bilateral pulmonary opacities are present likely representing pneumonia. Moderate left pleur al effusion. Heart size cannot be accurately assessed.Proximal right humerus hardware.
[2022-08-09 19:25] LABS: Arterial Blood Carboxyhemoglob 1.9 % (0-1.5); Blood Gas Oxyhemoglobin 86.2 % (94-97)
[2022-08-09 19:42] LABS: Absolute Lymphocytes (CBC) 0.7 K/uL (0.7-4.9); Hematocrit 33.4 % (36.0-45.0); Lymphocytes % 9.5 % (15.3-44.8); MCV 88.8 fL (80-100); MPV 9.4 fL (7.6-11.3); RBC Red Blood Cell Count 3.77 M/uL (3.86-4.86)
[2022-08-09 19:43] LABS: Protime INR 1.1
[2022-08-09 19:57] LABS: Albumin 2.9 g/dL (3.4-5.0); Bilirubin Direct 0.3 mg/dL (0-0.2); Bilirubin Total 0.8 mg/dL (0.2-1.0); Ferritin 414.9 ng/mL (8-388); Magnesium 2.5 mg/dL (1.6-2.4); Potassium 4.2 mmol/L (3.5-5.1); Protein, Total 7.2 g/dL (6.4-8.2)
[2022-08-09 20:10] LABS: Troponin High Sensitivity 121.4 pg/mL (<58.9)
[2022-08-09 20:24] LABS: SARS-COV-2 RT PCR POSITIVE (NEGATIVE)
[2022-08-09] MEDS ORDERED: ASPIRIN 81 MG CHEWABLE TABLET ONE (20:50)
[2022-08-09] MEDS ORDERED: FUROSEMIDE 40 MG/4 ML VIAL ONE (20:50)
--- NOTE | 2022-08-09 21:14 | RAD REPORT ---
EXAM DESCRIPTION: CT - Chest For Pe Angio - 08/09/2022 9:04 pm CLINICAL HISTORY: Chest pain. shortnessof breath COMPARISON: Thorax W/ Con dated 01/16/2021 TECHNIQUE: CT angiogram of the pulmonary arteries was performed with MIP. All CT scans are performed using dose optimization technique as appropriate and may include automated exposure control or mA/KV adjustment according to patient size. FINDINGS: No evidence of pulmonary thromboembolism. No acute aortic finding demonstrated. Extensive ground-glass opacities are present in both lungs, greater on the left likely related to COV ID infection. There is a moderate left pleural effusion seen with atelectasis in left lung base. Trace right pleura l effusion. No concerning bony finding. IMPRESSION: No evidence of pulmonary thromboembolism. Extensive bilateral ground-glass opacity likely related to COVID infection. Moderate left pleural effusion with atelectasis in the left lung base.
--- NOTE | 2022-08-09 21:47 | EDPHYS ---
Physician Documentation [facility] Name: Aubrie Del Toro Age: 82 yrs Sex: Female : 1940 Arrival Date: 08/09/2022 Time: 18:02 Bed 5 Private MD: Eddie Solis V ED Physician Brown Azul HPI: 08/09 18:45 This 82 yrs old Female presents to ER via Wheelchair with complaints of Covid+, Doesn't cp Feel Right. 18:45 The patient or guardian reports cough, that is intermittent. cp 18:45 Onset: The symptoms/episode began/occurred 2 day(s) ago, and became worse today. cp 18:45 Associated signs and symptoms: Pertinent positives: general weakness, Pertinent cp negatives: chest pain, fever, vomiting. Patient reports testing positive for COVID-19 today. Historical: - Allergies: 18:10 No Known Allergies; iw - Home Meds: 18:10 carvedilol 12.5 mg Oral tab 1 tab 2 times per day [Active]; doxazosin 4 mg Oral tab iw [Active]; Lasix 40 mg Oral tab 1 tab once daily [Active]; metoprolol tartrate 50 mg Oral tab [Active]; Plavix 75 mg Oral tab 1 tab once daily [Active]; Xarelto 20 mg Oral tab 1 tab once daily [Active]; - PMHx: 18:10 bladder issues; Atrial fibrillation; Cataracts; GERD; Headaches; Hypertension; l eblow iw melanoma; lymphedema; neuropathy; Hypothyroidism; - Immunization history:: Client reports receiving the 2nd dose of the Covid vaccine. - Social history:: Smoking status: Patient denies any tobacco usage or history of. ROS: 18:50 Eyes: Negative for injury, pain, redness, and discharge. cp 18:50 Constitutional: Negative for fever. 18:50 Cardiovascular: Negative for chest pain. 18:50 Respiratory: Positive for cough, "sounds productive", shortness of breath. 18:50 Abdomen/GI: Negative for abdominal pain, vomiting, diarrhea, constipation. 18:50 : Negative for urinary symptoms. 18:50 Skin: Negative for rash. 18:50 Neuro: Positive for weakness, Negative for altered mental status, headache. 18:50 All other systems are negative. Exam: 18:55 Constitutional: The patient appears in no acute distress, alert, awake, cp non-diaphoretic, non-toxic, well developed, well nourished. 18:55 Head/Face: Normocephalic, atraumatic. cp 18:55 Eyes: Periorbital structures: appear normal, Conjunctiva: normal, no exudate, no injection, Sclera: no appreciated abnormality, Lids and lashes: appear normal, bilaterally. 18:55 ENT: External ear(s): are unremarkable, Nose: is normal, Mouth: Lips: moist, Oral mucosa: moist, Posterior pharynx: Airway: no evidence of obstruction, patent, swelling, is not appreciated, erythema, is not appreciated, exudate, is not appreciated. 18:55 Neck: ROM/movement: is normal, is supple, without pain, no range of motions limitations, no meningismus, no nuchal rigidity. 18:55 Chest/axilla: Inspection: normal. 18:55 Cardiovascular: Rate: normal, Rhythm: regular, Edema: ankle edema, that is very mild, JVD: is not appreciated. 18:55 Respiratory: the patient does not display signs of respiratory distress, Respirations: shallow respirations, that is mild, Breath sounds: decreased breath sounds, that are mild, throughout, stridor, is not appreciated, wheezing: is not appreciated. 18:55 Abdomen/GI: Inspection: abdomen appears normal, Palpation: abdomen is soft and non-tender, in all quadrants. 18:55 Back: pain, is absent, ROM is normal. 18:55 Neuro: Orientation: to person, place \\T\\ time. Mentation: is normal, Motor: moves all fours, general weakness w/o focal deficits. 20:58 ECG was reviewed by the Attending Physician. cp Vital Signs: 18:07 BP 142 / 59; Pulse 64; Resp 16 S; Temp 98.7; Pulse Ox 92% on R/A; Weight 83.46 kg; iw Height 5 ft. 6 in. (167.64 cm); 18:20 Pulse Ox 81% on R/A; iw 18:26 Pulse Ox 90% on 2 lpm NC; iw 19:30 BP 179 / 47; Pulse 62; Resp 18; Pulse Ox 92% on 2 lpm NC; eh3 20:30 BP 178 / 42; Pulse 62; Resp 18; Pulse Ox 92% on 2 lpm NC; 3 21:00 Pulse Ox 78% on 5 lpm NC; eh3 21:30 BP 182 / 48; Pulse 70; Resp 20; Pulse Ox 88% on Non-rebreather mask; eh3 22:30 BP 170 / 55; Pulse 69; Resp 20; Pulse Ox 92% on 10 lpm NC; eh3 18:07 Body Mass Index 29.70 (83.46 kg, 167.64 cm) iw MDM: 18:26 Patient medically screened. cp 19:00 Differential Diagnosis: Bronchitis Influenza Pneumonia Other sepsis. cp 21:35 Data reviewed: vital signs, nurses notes, lab test result(s), EKG, radiologic studies, cp CT scan, plain films. 21:35 Consideration of Admission/Observation Patient was admitted/placed on observation. cp Management of patient was discussed with the following: Primary Care Provider: DR Solis. I considered the following discharge prescriptions or medication management in the emergency department Antibiotics: At this time antibiotics are not recommended, Dr Solis requests Paxlovid to be started. Independent interpretation of the following test(s) in the Emergency Department EKG: See my EKG interpretation above. Care significantly affected by the following chronic conditions: Congestive Heart Failure. Counseling: I had a detailed discussion with the patient and/or guardian regarding: the historical points, exam findings, and any diagnostic results supporting the discharge/admit diagnosis, lab results, radiology results, the need for further work-up and treatment in the hospital. 08/09 18:38 Order name: Basic Metabolic Panel; Complete Time: 20:24 cp 08/09 20:24 Interpretation: Normal except: BUN 29; CRE 1.31; GFR 40; CA 7.8. cp 08/09 18:38 Order name: CBC with Diff; Complete Time: 19:53 cp 08/09 19:53 Interpretation: Normal except: RBC 3.77; HGB 11.1; HCT 33.4; PLT 117; RDW 16.1; PETER% cp 85.0; LYM% 9.5. 08/09 18:38 Order name: LFT's; Complete Time: 20:24 cp 08/09 20:25 Interpretation: Normal except: AST 75; ALT 115; BILID 0.3; ALB 2.9; GLOB 4.3; A/G 0.7. cp 08/09 18:38 Order name: Magnesium; Complete Time: 20:24 cp 08/09 18:38 Order name: NT PRO-BNP; Complete Time: 20:24 cp 08/09 20:25 Interpretation: Normal except: NT PRO-BNP 8685. cp 08/09 18:38 Order name: PT-INR; Complete Time: 19:53 cp 08/09 18:38 Order name: Troponin HS; Complete Time: 20:24 cp 08/09 20:28 Interpretation: Abnormal: Troponin HS 121.4. cp 08/09 18:38 Order name: ABG; Complete Time: 19:35 cp 08/09 19:35 Interpretation: Normal except: ABGPO2 57.5; ABGSO2 89.0; TJTD9JA 86.2; ABGCOHB 1.9; cp ABGTHB 10.5. 08/09 18:38 Order name: CRP; Complete Time: 20:24 cp 08/09 18:38 Order name: Ferritin; Complete Time: 20:24 cp 08/09 18:38 Order name: COVID-19/FLU A+B/RSV; Complete Time: 20:26 cp 08/09 23:43 Order name: Basic Metabolic Panel EDMS 08/09 23:43 Order name: Basic Metabolic Panel EDMS 08/09 23:43 Order name: CBC with Automated Diff EDMS 08/09 18:38 Order name: XRAY Chest (1 view); Complete Time: 19:35 cp 08/09 19:35 Interpretation: Report review. cp 08/09 18:38 Order name: EKG; Complete Time: 18:38 cp 08/09 20:28 Order name: CT Chest For PE Angio; Complete Time: 21:25 cp 08/09 23:43 Order name: CBC with Automated Diff EDMS 08/09 23:43 Order name: Magnesium EDMS 08/09 23:43 Order name: Magnesium EDMS 08/09 23:43 Order name: Troponin High Sensitivity EDMS 08/09 23:43 Order name: Troponin High Sensitivity EDMS 08/09 23:43 Order name: Troponin High Sensitivity EDMS 08/09 23:43 Order name: Troponin High Sensitivity EDMS 08/10 04:01 Order name: Manual Differential EDMS 08/09 18:38 Order name: Cardiac monitoring; Complete Time: 20:56 cp 08/09 18:38 Order name: EKG - Nurse/Tech; Complete Time: 20:56 cp 08/09 18:38 Order name: IV Saline Lock; Complete Time: 19:48 cp 08/09 18:38 Order name: Labs collected and sent; Complete Time: 20:36 cp 08/09 18:38 Order name: O2 Per Protocol; Complete Time: 18:57 cp 08/09 18:38 Order name: O2 Sat Monitoring; Complete Time: 18:57 cp 08/09 21:35 Order name: Misc. Order: hold xeralto until further notice; Complete Time: 21:37 cp 08/09 23:43 Order name: Respiratory Therapy Consult EDMS 08/09 23:43 Order name: Heart Healthy EDMS EC:58 Rate is 66 beats/min. Rhythm is regular. SD interval is normal. QRS interval is normal. cp QT interval is normal. Interpreted by me. Reviewed by me. Administered Medications: 20:45 Drug: Aspirin Chewable Tablet 162 mg Route: PO; eh3 22:30 Follow up: Response: No adverse reaction eh3 21:00 Drug: Lasix (furosemide) 40 mg Route: IVP; Site: left antecubital; eh3 22:30 Follow up: Response: No adverse reaction eh3 22:20 Drug: SOLU-Medrol (methylPrednisoLONE) 125 mg Route: IVP; Site: left antecubital; eh3 23:07 Follow up: Response: No adverse reaction eh3 23:20 Not Given (do not have in stock. provider notified ): Paxlovid Dose Pack 150 mg x 2-100 as6 mg (EUA) 3 tablet PO once 08/10 01:22 Drug: Paxlovid Dose Pack 150 mg x 2-100 mg (EUA) 3 tabs Route: PO; as6 Disposition Summary: 08/09/22 21:46 Hospitalization Ordered Hospitalization Status: Inpatient Admission cp Provider: Eddie Solis cp Condition: Stable cp Problem: new cp Symptoms: have improved cp Bed/Room Type: Standard cp Location: Telemetry/MedSurg (Inpatient)(08/10/22 06:26) cg Room Assignment: 418(08/10/22 07:10) mw2 Diagnosis - Pneumonia due to SARS-associated coronavirus cp - Hypoxemia cp Forms: - Medication Reconciliation Form cp - SBAR form cp Addendum: 08/13/2022 13:27 Co-signature as Attending Physician, Brown Azul MD I agree with the assessment and c cunningham plan of care. Signatures: Dispatcher [employer] EDBrown Cueva MD MD cha Williams, Irene, RN RN Brown Cosme PA PA cp Cammie Fernandes, RN RN cg Jose Ramon Farah mw2 Fito Peralta RN RN as6 Rochelle Hubbard RN RN eh3 Corrections: (The following items were deleted from the chart) 08/09 23:46 21:46 Telemetry/MedSurg (Inpatient) cp cg 23:46 21:46 cp cg 08/10 06:26 08/09 23:46 [facility] ER HOLD cg cg 08/10 06:26 08/09 23:46 ERHOLD- cg cg 08/10 07:10 06:26 cg mw2 08/11 05:24 08/10 18:45 This 82 yrs old Female presents to ER via Wheelchair with complaints of cp Covid+, Doesn't Feel Right. cp
--- NOTE | 2022-08-09 21:47 | ER ---
Nurse's Notes [facility] Name: Aubrie Del Toro Age: 82 yrs Sex: Female : 1940 Arrival Date: 08/09/2022 Time: 18:02 Bed 5 Private MD: Eddie Solis V Diagnosis: Pneumonia due to SARS-associated coronavirus;Hypoxemia Presentation: 08/09 18:07 Chief complaint: Patient states: started feeling bad Tuesday, took a COVID test today iw and it was positive, my family insisted I come out here, has a bad cough and difficulty breathing , no fever, feels run down/exhausted , no vomiting or diarrhea. Coronavirus screen: Client presents with at least one sign or symptom that may indicate coronavirus-19. Ebola Screen: Patient negative for fever greater than or equal to 101.5 degrees Fahrenheit, and additional compatible Ebola Virus Disease symptoms Patient denies exposure to infectious person. Patient denies travel to an Ebola-affected area in the 21 days before illness onset. No symptoms or risks identified at this time. Initial Sepsis Screen: Does the patient meet any 2 criteria? No. Patient's initial sepsis screen is negative. Does the patient have a suspected source of infection? No. Patient's initial sepsis screen is negative. Risk Assessment: Do you want to hurt yourself or someone else? Patient reports no desire to harm self or others. Onset of symptoms was August 07, 2022. 18:07 Method Of Arrival: Wheelchair iw 18:07 Acuity: [facility] 3 iw Historical: - Allergies: 18:10 No Known Allergies; iw - Home Meds: 18:10 carvedilol 12.5 mg Oral tab 1 tab 2 times per day [Active]; doxazosin 4 mg Oral tab iw [Active]; Lasix 40 mg Oral tab 1 tab once daily [Active]; metoprolol tartrate 50 mg Oral tab [Active]; Plavix 75 mg Oral tab 1 tab once daily [Active]; Xarelto 20 mg Oral tab 1 tab once daily [Active]; - PMHx: 18:10 bladder issues; Atrial fibrillation; Cataracts; GERD; Headaches; Hypertension; l eblow iw melanoma; lymphedema; neuropathy; Hypothyroidism; - Immunization history:: Client reports receiving the 2nd dose of the Covid vaccine. - Social history:: Smoking status: Patient denies any tobacco usage or history of. Screenin:45 [facility] ED Fall Risk Assessment (Adult) History of falling in the last 3 months, eh3 including since admission No falls in past 3 months (0 pts) Confusion or Disorientation No (0 pts) Intoxicated or Sedated No (0 pts) Impaired Gait Yes (1 pt) Mobility Assist Device Used Yes (1 pt) Altered Elimination No (0 pt) Score/Fall Risk Level 0 - 2 = Low Risk Oriented to surroundings, Maintained a safe environment, Educated pt \T\ family on fall prevention, incl call for assistance when getting out of bed, Assessed \T\ reinforced patient's understanding of fall precautions, Provided non-skid footwear, Hourly rounding (assess needs \T\ fall precautionary measures) done. Abuse screen: Denies threats or abuse. Denies injuries from another. Nutritional screening: No deficits noted. Tuberculosis screening: No symptoms or risk factors identified. Assessment: 18:26 Reassessment: pt O2 dropped to 81% on RA when moved from wheelchair to stretcher, iw placed on 2 L NC upto 90%. 18:45 General: Appears in no apparent distress. uncomfortable, Behavior is calm, cooperative, eh3 appropriate for age. Pain: Denies pain. Neuro: Level of Consciousness is awake, alert, obeys commands, Oriented to person, place, time, situation. Cardiovascular: Capillary refill < 3 seconds Patient's skin is warm and dry. Respiratory: Airway is patent Respiratory effort is even, unlabored, Respiratory pattern is regular, symmetrical. GI: No signs and/or symptoms were reported involving the gastrointestinal system. Abdomen is round non-distended. : No signs and/or symptoms were reported regarding the genitourinary system. EENT: No signs and/or symptoms were reported regarding the EENT system. Derm: No signs and/or symptoms reported regarding the dermatologic system. Musculoskeletal: No signs and/or symptoms reported regarding the musculoskeletal system. Circulation, motion, and sensation intact. Range of motion: intact in all extremities. 19:30 Reassessment: Patient appears in no apparent distress at this time. Patient and/or eh3 family updated on plan of care and expected duration. Pain level reassessed. Patient is alert, oriented x 3, equal unlabored respirations, skin warm/dry/pink. 20:30 Reassessment: Patient appears in no apparent distress at this time. Patient and/or eh3 family updated on plan of care and expected duration. Pain level reassessed. Patient is alert, oriented x 3, equal unlabored respirations, skin warm/dry/pink. 21:30 Reassessment: Patient appears in no apparent distress at this time. Patient and/or eh3 family updated on plan of care and expected duration. Pain level reassessed. Patient is alert, oriented x 3, equal unlabored respirations, skin warm/dry/pink. 22:30 Reassessment: Patient appears in no apparent distress at this time. Patient and/or eh3 family updated on plan of care and expected duration. Pain level reassessed. Patient is alert, oriented x 3, equal unlabored respirations, skin warm/dry/pink. Vital Signs: 18:07 BP 142 / 59; Pulse 64; Resp 16 S; Temp 98.7; Pulse Ox 92% on R/A; Weight 83.46 kg; iw Height 5 ft. 6 in. (167.64 cm); 18:20 Pulse Ox 81% on R/A; iw 18:26 Pulse Ox 90% on 2 lpm NC; iw 19:30 BP 179 / 47; Pulse 62; Resp 18; Pulse Ox 92% on 2 lpm NC; eh3 20:30 BP 178 / 42; Pulse 62; Resp 18; Pulse Ox 92% on 2 lpm NC; eh3 21:00 Pulse Ox 78% on 5 lpm NC; eh3 21:30 BP 182 / 48; Pulse 70; Resp 20; Pulse Ox 88% on Non-rebreather mask; eh3 22:30 BP 170 / 55; Pulse 69; Resp 20; Pulse Ox 92% on 10 lpm NC; eh3 18:07 Body Mass Index 29.70 (83.46 kg, 167.64 cm) iw ED Course: 18:02 Patient arrived in ED. mr 18:03 Eddie Solis MD is Private Physician. mr 18:10 Triage completed. iw 18:10 Arm band placed on. iw 18:24 Brown Hackett PA is PHCP. cp 18:24 Brown Azul MD is Attending Physician. cp 18:31 Di Sherman RN is Primary Nurse. mb9 18:45 Patient has correct armband on for positive identification. Placed in gown. Bed in low eh3 position. Call light in reach. Side rails up X2. Client placed on continuous cardiac and pulse oximetry monitoring. NIBP monitoring applied. Door closed. Noise minimized. Lights dimmed. Warm blanket given. 18:57 COVID-19/FLU A+B/RSV Sent. eh3 18:57 Missed attempt(s): 22 gauge in right antecubital area. Bleeding controlled, band aid eh3 applied, catheter tip intact. 19:17 XRAY Chest (1 view) In Process Unspecified. EDMS 19:43 Inserted saline lock: 20 gauge in left antecubital area, using aseptic technique. Blood mw1 collected. 20:11 Notified Nurse Practitioner and/or Physician Network Controller of a critical lab result(s), tw5 trop 121.4. 21:05 CT Chest For PE Angio In Process Unspecified. EDMS 21:45 Eddie Solis MD is Hospitalizing Provider. cp 22:31 patient's Grandson ([facility]) [phone]. mw2 Administered Medications: 20:45 Drug: Aspirin Chewable Tablet 162 mg Route: PO; eh3 22:30 Follow up: Response: No adverse reaction eh3 21:00 Drug: Lasix (furosemide) 40 mg Route: IVP; Site: left antecubital; eh3 22:30 Follow up: Response: No adverse reaction eh3 22:20 Drug: SOLU-Medrol (methylPrednisoLONE) 125 mg Route: IVP; Site: left antecubital; eh3 23:07 Follow up: Response: No adverse reaction eh3 23:20 Not Given (do not have in stock. provider notified ): Paxlovid Dose Pack 150 mg x 2-100 as6 mg (EUA) 3 tablet PO once 08/10 01:22 Drug: Paxlovid Dose Pack 150 mg x 2-100 mg (EUA) 3 tabs Route: PO; as6 Outcome: 08/09 21:46 Decision to Hospitalize by Provider. cp 08/10 08:05 Patient left the ED. iw Signatures: Dispatcher [employer] EDDC JonesDi Irene, RN RN iw Brown Hackett PA PA cp Waits, Michael mw1 Jose Ramon Farah mw2 Amy Caal tw5 Fito Peralta RN RN as6 Rochelle Hubbard, DARIELA RN eh3 Di Sherman RN RN mb9 Corrections: (The following items were deleted from the chart) 08/09 18:11 18:07 BP 142 / 59; Pulse 64bpm; Resp 16bpm; Spontaneous; Pulse Ox 90% RA; Temp 98.7F; iw 83.46 kg; Height 5 ft. 6 in.; BMI: 29.7; iw 22:39 20:30 BP 178 / 42; Pulse 62bpm; Resp 18bpm; Pulse Ox 92% RA; eh3 eh3
[2022-08-09] MEDS ORDERED: ONDANSETRON 4 MG/2 ML VIAL IV PRN (23:32)
[2022-08-10] MEDS: NIRMATRELVIR/RITONAVIR TABLET PO SCH ×3 (01:00→21:55)
[2022-08-10 02:54] LABS: Absolute Lymphocytes (CBC) 0.5 K/uL (0.7-4.9); Hematocrit 30.4 % (36.0-45.0); Lymphocytes % 5.8 % (15.3-44.8); MCV 89.1 fL (80-100); MPV 9.3 fL (7.6-11.3); RBC Red Blood Cell Count 3.41 M/uL (3.86-4.86)
[2022-08-10 03:10] LABS: Magnesium 2.5 mg/dL (1.6-2.4); Potassium 3.9 mmol/L (3.5-5.1)
[2022-08-10 04:01] LABS: Blood Morphology Comment NOT SEEN (NOT SEEN); Platelet Estimate ADEQ
[2022-08-10 04:26] VITALS: BMI 29.7
[2022-08-10] MEDS: ASPIRIN EC 81 MG TAB PO SCH (08:46)
[2022-08-10] MEDS: dexAMETHasone 4 MG/ML VIAL IV SCH ×2 (08:46→21:02)
[2022-08-10] MEDS: FAMOTIDINE 20 MG TAB PO SCH (08:46)
[2022-08-10] MEDS: levoFLOXacin 500 MG TAB PO SCH (08:46)
[2022-08-10] MEDS ORDERED: FAMOTIDINE 20 MG/2 ML VIAL IV SCH (09:00)
--- NOTE | 2022-08-10 12:17 | P.CNS ---
Date of Consult: 08/10/22 Reason for Consult: Coronavirus pneumonia Chief Complaint: Shortness of breath hypoxemia History of Present Illness: Patient is 82 years of age became acutely ill denies any fever shortness of breath cough. With a diagnosis of extensive bilateral coronavirus pneumonia currently on high flow oxygen doing fairly well Allergies No Known Allergies Allergy (Verified 01/01/21 20:48) Home Medications: Liothyronine Sodium [Cytomel] 5 mcg PO DAILY 01/01/21 ursodioL [Ursodiol] 300 mg PO BID 01/01/21 Furosemide [Lasix*] 40 mg PO DAILY 02/19/21 Oxybutynin Chloride [Ditropan*] 15 mg PO DAILY 02/19/21 Pregabalin [Lyrica*] 150 mg PO BID 02/19/21 Rabeprazole Sodium 20 mg PO DAILY 10/06/21 Levothyroxine [Synthroid*] 112 mcg PO [id number] 05/25/22 Rosuvastatin [Crestor*] 5 mg PO BEDTIME 05/25/22 Losartan Potassium 100 mg PO DAILY #90 tab 05/28/22 Hydralazine HCl 50 mg PO BID #180 05/31/22 - Past Medical/Surgical History Diabetic: No -: CHF -: DM -: GERD -: Neuropathy -: Insomnia -: Hyperlipidemia -: overactive bladder -: Hypothyroidism -: Right Shoulder Replacement -: Bilateral knee replacment -: Hysterectomy -: ULE Melanoma removal -: Tonsilectomy -: Adnoidectomy -: Bilateral eye surgery r/t strabismus - Family History Mother Medical History: Hypertension, Other (see notes) Notes: COPD Father Medical History: Other (see notes) Notes: CHF - Social History Smoking Status: Never smoker Alcohol use: No CD- Drugs: No Caffeine use: No Review of Systems 10-point ROS is otherwise unremarkable General: Weakness Respiratory: Cough, Shortness of Breath Physical Examination Temp Pulse Resp BP Pulse Ox 97.7 F 58 16 166/65 H 94 08/10/22 08:00 08/10/22 08:00 08/10/22 08:00 08/10/22 08:00 08/10/22 08:00 General: Alert, In no apparent distress, Mild distress Respiratory: Clear to auscultation bilaterally, Diminished Cardiovascular: No edema, Regular rate/rhythm Gastrointestinal: Normal bowel sounds, Soft and benign Musculoskeletal: No swelling Integumentary: No rashes Neurological: Normal speech Laboratory Data (last 24 hrs) 08/09/22 19:25: PT 12.1, INR 1.10 08/09/22 19:25: WBC 7.70, Hgb 11.1 L, Hct 33.4 L, Plt Count 117 L 08/09/22 19:25: Sodium 143, Potassium 4.2, BUN 29 H, Creatinine 1.31 H, Glucose 93, Magnesium 2.5 H, Total Bilirubin 0.8, AST 75 H, ALT 115 H, Alkaline Phosphatase 67 - Problems (1) 2019 novel coronavirus-infected pneumonia (NCIP) Current Visit: Yes Status: Acute Plan: Patient is 82 years of age admitted with the coronavirus pneumonia current normal white count mildly anemic significant hypoxemia CT scan reviewed patient has a pleural effusion on the left lower lobe add levofloxacin steroids and Paxovid currently on high flow oxygen
[2022-08-10] MEDS: ENOXAPARIN 40 MG/0.4 ML SQ SCH (12:28)
--- NOTE | 2022-08-10 14:22 | EKG ---
Test Date: 2022-08-09 Test Time: 20:54:34 Sales Development Specialist: MEASUREMENT RESULTS: Intervals: Rate: 66 MN: 198 QRSD: 88 QT: 456 QTc: 478 [place]: P: 51 MN: 198 QRS: 54 T: 62 INTERPRETIVE STATEMENTS: Normal sinus rhythm Normal ECG Compared to ECG 10/06/2021 12:34:46 Sinus bradycardia no longer present Sinus arrhythmia no longer present ST (T wave) deviation no longer present Possible ischemia no longer present Prolonged QT interval no longer present Electronically Signed On 08-10-22 14:21:32 RECRUITING COORDINATOR by Eagle Osborn
[2022-08-10] MEDS: ACETAMINOPHEN 500 MG TAB PO PRN (14:33)
[2022-08-10] MEDS: PROMETHAZINE-DM 5 ML OSYR PO PRN ×2 (15:08→22:10)
[2022-08-11] MEDS: ACETAMINOPHEN 500 MG TAB PO PRN (01:16)
[2022-08-11] MEDS: NIRMATRELVIR/RITONAVIR TABLET PO SCH ×2 (08:14→21:05)
[2022-08-11] MEDS: levoFLOXacin 500 MG TAB PO SCH (08:15)
[2022-08-11] MEDS: ASPIRIN EC 81 MG TAB PO SCH (08:15)
[2022-08-11] MEDS: dexAMETHasone 4 MG/ML VIAL IV SCH (08:15)
[2022-08-11] MEDS: ENOXAPARIN 40 MG/0.4 ML SQ SCH (08:15)
[2022-08-11] MEDS: FAMOTIDINE 20 MG TAB PO SCH (08:15)
[2022-08-11] MEDS ORDERED: levoFLOXacin 250 MG TAB PO ONE (10:30)
[2022-08-11] MEDS ORDERED: LOSARTAN POTASSIUM 50 MG TABLET PO SCH (11:50)
--- NOTE | 2022-08-11 11:50 | P.PN ---
Subjective Date of Service: 08/11/22 Chief Complaint: Patient is feeling better complaining of cough and shortness of breath Subjective: Improving (Still has a cough) Review of Systems General: Weakness Respiratory: Cough, Shortness of Breath Physical Examination - Vital Signs Temperature: 97.1 F Blood Pressure: 186/69 Pulse: 57 Respirations: 16 Pulse Ox (%): 92 - Physical Exam General: Alert Respiratory: Crackles/rales, Rhonchi/gurgles Cardiovascular: No edema, Normal S1 S2 Assessment And Plan - Current Problems (Diagnosis) (1) 2019 novel coronavirus-infected pneumonia (NCIP) Current Visit: Yes Status: Acute Plan: Patient is 82 years of age admitted with coronavirus pneumonia is clinically improving patient on nasal cannula oxygen labs reviewed white count is normal vital signs satisfactory procalcitonin level is active elevated continue Levaquin change to p.o. Decadron stable discharge a.m. on O2 (2) Hypertension Current Visit: Yes Status: Acute Plan: Resume losartan and Lasix Qualifiers: Hypertension type: primary hypertension Qualified Code(s): I10 - Essential (primary) hypertension
[2022-08-11] MEDS ORDERED: FUROSEMIDE 40 MG TABLET PO SCH (11:51)
--- NOTE | 2022-08-11 18:07 | P.PN ---
Subjective Date of Service: 08/11/22 Chief Complaint: Patient is feeling better complaining of cough and shortness of breath Subjective: Improving SHE IS STILL VERY WEAK, HAS OXYGEN SUPPORT. Review of Systems 10-point ROS is otherwise unremarkable General: Weakness, Malaise Respiratory: Shortness of Breath Physical Examination - Vital Signs Temperature: 97.5 F Blood Pressure: 182/74 Pulse: 54 Respirations: 16 Pulse Ox (%): 94 - Physical Exam General: Oriented x3, Mild distress, Obese HEENT: Atraumatic, PERRLA, EOMI Neck: Supple, JVD not distended Respiratory: Clear to auscultation bilaterally, Normal air movement Cardiovascular: Regular rate/rhythm, Normal S1 S2 Gastrointestinal: Normal bowel sounds, No tenderness Musculoskeletal: No tenderness Integumentary: No rashes Neurological: Normal speech, Normal tone, Normal affect Lymphatics: No axilla or inguinal lymphadenopathy - Studies Medications List Reviewed: Yes Assessment And Plan - Current Problems (Diagnosis) (1) COVID Current Visit: Yes Status: Acute Plan: PAXLOVID STARTED BID IV STERIODS PER DR. PASCUAL. STABLE FOR NOW. (2) Viral pneumonia Current Visit: Yes Status: Acute (3) Hypertension Current Visit: Yes Status: Acute Plan: BP HIGH, STARTED HOMEMEDS. FU DAILY. Qualifiers: Hypertension type: primary hypertension Qualified Code(s): I10 - Essential (primary) hypertension
[2022-08-11] MEDS: HOME MED 1 EA UNK [ROSUVASTATIN 5 MG TAB] PO SCH (21:00)
[2022-08-11] MEDS: dexAMETHasone 4 MG TAB PO SCH (21:05)
[2022-08-11] MEDS: PREGABALIN 150 MG CAP PO SCH (21:05)
[2022-08-11] MEDS: TRAZODONE 50 MG TABLET PO SCH (21:05)
[2022-08-11] MEDS: PROMETHAZINE-DM 5 ML OSYR PO PRN (21:05)
[2022-08-12] MEDS: LEVOTHYROXINE SOD 0.112 MG TAB PO SCH (06:02)
[2022-08-12] MEDS: LIOTHYRONINE SOD 5 MCG TAB PO SCH (06:02)
[2022-08-12] MEDS: OXYBUTYNIN ER 5 MG TAB PO SCH (08:59)
[2022-08-12] MEDS: ENOXAPARIN 40 MG/0.4 ML SQ SCH (08:59)
[2022-08-12] MEDS: dexAMETHasone 4 MG TAB PO SCH ×2 (08:59→21:22)
[2022-08-12] MEDS: ASPIRIN EC 81 MG TAB PO SCH (08:59)
[2022-08-12] MEDS: POTASSIUM CL SA 10 MEQ TAB PO SCH (08:59)
[2022-08-12] MEDS: AMLODIPINE 2.5 MG TAB PO SCH (09:00)
[2022-08-12] MEDS ORDERED: HOME MED 1 EA UNK (Potassium Chloride [Potassium Chloride] 20 MEQ Tablet.Er) PO SCH (09:00)
[2022-08-12] MEDS: NIRMATRELVIR/RITONAVIR TABLET PO SCH ×2 (09:00→21:22)
[2022-08-12] MEDS: FUROSEMIDE 40 MG TABLET PO SCH (09:00)
[2022-08-12] MEDS: PREGABALIN 150 MG CAP PO SCH ×2 (09:00→21:22)
[2022-08-12] MEDS ORDERED: HOME MED 1 EA UNK (Rabeprazole Sodium [Rabeprazole Sodium] 20 MG Tablet.Dr) PO SCH (09:00)
[2022-08-12] MEDS ORDERED: HOME MED 1 EA UNK (Losartan Potassium [Losartan Potassium] 100 MG Tablet) PO SCH (09:00)
[2022-08-12] MEDS: PANTOPRAZOLE 40MG TABLET PO SCH (09:00)
[2022-08-12] MEDS: FAMOTIDINE 20 MG TAB PO SCH (09:00)
[2022-08-12] MEDS: ursodioL 300 MG CAP PO SCH ×2 (09:00→21:22)
[2022-08-12] MEDS: LOSARTAN POTASSIUM 50 MG TABLET PO SCH (09:00)
[2022-08-12] MEDS: HOME MED 1 EA UNK [ROSUVASTATIN 5 MG TAB] PO SCH (21:00)
[2022-08-12] MEDS: TRAZODONE 50 MG TABLET PO SCH (21:22)
--- NOTE | 2022-08-12 21:31 | P.PN ---
Subjective Date of Service: 08/12/22 Chief Complaint: Patient is feeling better complaining of cough and shortness of breath Subjective: Improving SHE IS STILL VERY WEAK, HAS OXYGEN SUPPORT. SHE IS LOT BETTER. STILL ON HIGH FLOW OXYGEN. Review of Systems 10-point ROS is otherwise unremarkable General: Weakness, Malaise Respiratory: Shortness of Breath Physical Examination - Vital Signs Temperature: 97.2 F Blood Pressure: 168/67 Pulse: 54 Respirations: 18 Pulse Ox (%): 91 - Physical Exam General: Oriented x3, Moderate distress, Obese HEENT: Atraumatic, PERRLA, EOMI Neck: Supple, JVD not distended Respiratory: Clear to auscultation bilaterally, Normal air movement Cardiovascular: Regular rate/rhythm, Normal S1 S2 Gastrointestinal: Normal bowel sounds, No tenderness Musculoskeletal: No tenderness Integumentary: No rashes Neurological: Normal speech, Normal tone, Normal affect Lymphatics: No axilla or inguinal lymphadenopathy - Studies Medications List Reviewed: Yes Assessment And Plan - Current Problems (Diagnosis) (1) COVID Current Visit: Yes Status: Acute Plan: PAXLOVID STARTED BID IV STERIODS PER DR. PASCUAL. STABLE FOR NOW. HIGH FLOW OXYGEN IS LOWER AT 12 LT SHE MAY BE ABLE TO GO TO [place]. SHE IS STABLE. (2) Viral pneumonia Current Visit: Yes Status: Acute (3) Hypertension Current Visit: Yes Status: Acute Plan: BP HIGH, STARTED HOMEMEDS. FU DAILY. Qualifiers: Hypertension type: primary hypertension Qualified Code(s): I10 - Essential (primary) hypertension
[2022-08-13] MEDS: LEVOTHYROXINE SOD 0.112 MG TAB PO SCH (05:52)
[2022-08-13] MEDS: LIOTHYRONINE SOD 5 MCG TAB PO SCH (05:52)
[2022-08-13] MEDS: OXYBUTYNIN ER 5 MG TAB PO SCH (09:11)
[2022-08-13] MEDS: ENOXAPARIN 40 MG/0.4 ML SQ SCH (09:11)
[2022-08-13] MEDS: levoFLOXacin 750 MG TAB PO SCH (09:11)
[2022-08-13] MEDS: NIRMATRELVIR/RITONAVIR TABLET PO SCH ×2 (09:11→20:21)
[2022-08-13] MEDS: PREGABALIN 150 MG CAP PO SCH ×2 (09:11→20:22)
[2022-08-13] MEDS: ASPIRIN EC 81 MG TAB PO SCH (09:12)
[2022-08-13] MEDS: FUROSEMIDE 40 MG TABLET PO SCH (09:12)
[2022-08-13] MEDS: FAMOTIDINE 20 MG TAB PO SCH (09:12)
[2022-08-13] MEDS: LOSARTAN POTASSIUM 50 MG TABLET PO SCH (09:12)
[2022-08-13] MEDS: PANTOPRAZOLE 40MG TABLET PO SCH (09:12)
[2022-08-13] MEDS: dexAMETHasone 4 MG TAB PO SCH (09:12)
[2022-08-13] MEDS: POTASSIUM CL SA 10 MEQ TAB PO SCH (09:12)
[2022-08-13] MEDS: ursodioL 300 MG CAP PO SCH ×2 (09:12→20:22)
[2022-08-13] MEDS: AMLODIPINE 2.5 MG TAB PO SCH (09:12)
--- NOTE | 2022-08-13 12:39 | P.PN ---
Subjective Date of Service: 08/13/22 Chief Complaint: COVID-19 positive test (U07.1, COVID-19) with Acute Pneumonia (J12.89, Ot Subjective: Improving (Patient is improving doing better still complaining of a cough) Review of Systems General: Weakness Respiratory: Cough, Shortness of Breath Physical Examination - Vital Signs Temperature: 96.8 F Blood Pressure: 173/52 Pulse: 59 Respirations: 16 Pulse Ox (%): 99 - Physical Exam General: Alert, Oriented x3 Respiratory: Diminished, Crackles/rales Cardiovascular: No edema, Regular rate/rhythm - Studies Medications List Reviewed: Yes Assessment And Plan - Current Problems (Diagnosis) (1) 2019 novel coronavirus-infected pneumonia (NCIP) Current Visit: Yes Status: Acute Plan: Patient is improving oxygen requirements have declined to 3 L labs reviewed renal function improved elevated troponin is probably from demand ischemia reduce Decadron to once a day discharge planning May need home O2 chest x-ray has been ordered (2) Hypertension Current Visit: Yes Status: Acute Plan: Blood pressure elevated Qualifiers: Hypertension type: primary hypertension Qualified Code(s): I10 - Essential (primary) hypertension
--- NOTE | 2022-08-13 12:42 | P.PN ---
Subjective Date of Service: 08/13/22 Chief Complaint: COVID-19 positive test (U07.1, COVID-19) with Acute Pneumonia (J12.89, Ot Subjective: Improving SHE IS STILL VERY WEAK, HAS OXYGEN SUPPORT. SHE IS LOT BETTER. STILL ON HIGH FLOW OXYGEN. SHE IS STRONGER BETTER STILL ON OXYGEN ABLE TO AMBULATE NOW. Physical Examination - Vital Signs Temperature: 96.8 F Blood Pressure: 173/52 Pulse: 59 Respirations: 16 Pulse Ox (%): 99 - Physical Exam General: Acute distress, Mild distress, Moderate distress, Obese HEENT: Atraumatic, PERRLA, EOMI Neck: Supple, JVD not distended Respiratory: Clear to auscultation bilaterally, Normal air movement Cardiovascular: Regular rate/rhythm, Normal S1 S2 Gastrointestinal: Normal bowel sounds, No tenderness Musculoskeletal: No tenderness Integumentary: No rashes Neurological: Normal speech, Normal tone, Normal affect Lymphatics: No axilla or inguinal lymphadenopathy - Studies Medications List Reviewed: Yes Assessment And Plan - Current Problems (Diagnosis) (1) COVID Current Visit: Yes Status: Acute Plan: PAXLOVID STARTED BID IV STERIODS PER DR. PASCUAL. STABLE FOR NOW. HIGH FLOW OXYGEN IS LOWER AT 12 LT SHE MAY BE ABLE TO GO TO [place]. SHE IS STABLE. MAY TAKE TWO MORE DAYS HERE. DC ON TUESDAY. STABLE FOR NOW. (2) Viral pneumonia Current Visit: Yes Status: Acute (3) Hypertension Current Visit: Yes Status: Acute Plan: BP HIGH, STARTED HOMEMEDS. FU DAILY. Qualifiers: Hypertension type: primary hypertension Qualified Code(s): I10 - Essential (primary) hypertension
--- NOTE | 2022-08-13 13:29 | RAD REPORT ---
EXAM DESCRIPTION: Natan Single View08/13/2022 1:21 pm CLINICAL HISTORY: Cough/pneumonia COMPARISON: August 09, 2022 FINDINGS: Bilateral pulmonary opacities have partially resolved. Left lower lobe consolidation has mildly improved. Left pleural effusion appears minimally diminished in size Heart is normal size IMPRESSION: Improvement in the bilateral pulmonary opacities and left lower lobe consolidation Left pleural effusion appears minimally diminished in size
[2022-08-13 15:16] LABS: Hematocrit 35.3 % (36.0-45.0); MCV 88.9 fL (80-100); MPV 9.1 fL (7.6-11.3); RBC Red Blood Cell Count 3.98 M/uL (3.86-4.86)
[2022-08-13] MEDS: HYDRALAZINE HCL 25 MG TABLET PO SCH (20:22)
[2022-08-13] MEDS: TRAZODONE 50 MG TABLET PO SCH ×2 (20:22→22:16)
[2022-08-13] MEDS: HOME MED 1 EA UNK [ROSUVASTATIN 5 MG TAB] PO SCH (20:23)
[2022-08-14] MEDS: LIOTHYRONINE SOD 5 MCG TAB PO SCH (05:24)
[2022-08-14] MEDS: LEVOTHYROXINE SOD 0.112 MG TAB PO SCH (05:24)
--- NOTE | 2022-08-14 07:10 | RAD REPORT ---
EXAM DESCRIPTION: RAD - Chest Single View - 08/14/2022 6:43 am CLINICAL HISTORY: Coronavirus pneumonia COMPARISON: Chest Single View dated 08/13/2022; Chest Single View dated 08/09/2022; Chest Single View d ated 05/25/2022; Chest Pa And Lat (2 Views) dated 05/25/2022; Chest For Pe Angio dated 08/09/2022 FINDINGS: Lines: None. Lungs: Mild bilateral interstitial and airspace disease that is similar to 08/13/2022 and modestly im proved since 08/09/2022. Pleural: Left pleural effusion is unchanged. Cardiac: Similar size and configuration. Mediastinum: Within normal limits. Bones: No acute fractures. Right shoulder arthroplasty . Other: Surgical clips in left axilla. IMPRESSION: No significant change compared with 08/13/2022. The left pleural effusion as well as mil d bilateral airspace disease is similar. The lungs are overall improved since 08/09/2022.
[2022-08-14] MEDS: dexAMETHasone 4 MG TAB PO SCH (08:59)
[2022-08-14] MEDS: ENOXAPARIN 40 MG/0.4 ML SQ SCH (08:59)
[2022-08-14] MEDS: HYDRALAZINE HCL 25 MG TABLET PO SCH ×2 (08:59→21:29)
[2022-08-14] MEDS: PREGABALIN 150 MG CAP PO SCH ×2 (08:59→21:29)
[2022-08-14] MEDS: ASPIRIN EC 81 MG TAB PO SCH (08:59)
[2022-08-14] MEDS: ursodioL 300 MG CAP PO SCH ×2 (09:00→21:28)
[2022-08-14] MEDS: FAMOTIDINE 20 MG TAB PO SCH (09:00)
[2022-08-14] MEDS: PANTOPRAZOLE 40MG TABLET PO SCH (09:00)
[2022-08-14] MEDS: POTASSIUM CL SA 10 MEQ TAB PO SCH (09:00)
[2022-08-14] MEDS: OXYBUTYNIN ER 5 MG TAB PO SCH (09:01)
[2022-08-14] MEDS: NIRMATRELVIR/RITONAVIR TABLET PO SCH (09:02)
[2022-08-14] MEDS: AMLODIPINE 2.5 MG TAB PO SCH ×2 (09:09→17:49)
[2022-08-14] MEDS: FUROSEMIDE 40 MG TABLET PO SCH (09:09)
[2022-08-14] MEDS: LOSARTAN POTASSIUM 50 MG TABLET PO SCH (10:25)
--- NOTE | 2022-08-14 11:26 | P.PN ---
Subjective Date of Service: 08/14/22 Chief Complaint: COVID-19 positive test (U07.1, COVID-19) with Acute Pneumonia (J12.89, Ot Subjective: Improving (Patient is doing much better coughing has improved) Review of Systems General: Weakness Respiratory: Cough, Shortness of Breath Physical Examination - Vital Signs Temperature: 93.0 F Blood Pressure: 172/60 Pulse: 50 Respirations: 12 Pulse Ox (%): 97 - Physical Exam General: Alert, In no apparent distress, Oriented x3 Respiratory: Clear to auscultation bilaterally, Diminished, Friction rub Cardiovascular: Regular rate/rhythm - Studies Medications List Reviewed: Yes Assessment And Plan - Current Problems (Diagnosis) (1) 2019 novel coronavirus-infected pneumonia (NCIP) Current Visit: Yes Status: Acute Plan: Is doing much better cough has improved labs reviewed white count still remains normal saturation satisfactory 96% on 1 L check room air pulse ox repeat chest x-ray discharge planning (2) Hypertension Current Visit: Yes Status: Acute Plan: Pressure is still elevated increase amlodipine to 5 mg daily Qualifiers: Hypertension type: primary hypertension Qualified Code(s): I10 - Essential (primary) hypertension
[2022-08-14] MEDS ORDERED: Ringers Lactate 0 ML IV ONE (11:31)
--- NOTE | 2022-08-14 18:50 | PN ---
Subjective: Patient is feeling great. She is much improved now. Denies any chest pain, nausea, or vomiting. Physical Examination: Vital Signs: Blood pressure 140/45; pulse is 50; temperature 93.3, this seems like a mistake, will h ave them redo. General: She is fully awake and has no acute symptoms except for mild shortness of breath from COVID , otherwise. Chest: Clear. Heart: Regular. Abdomen: No guarding. No rebound. No rigidity. Assessment And Plan: 1.COVID pneumonia, clinically improved, Paxlovid and oral steroids, tapering dose of steroids now. 2.Hypertension. I have to add hydralazine for control of blood pressure. 3.Social issues. She is weak and not able to take care of herself. I offer her Home Health and I t hink in a day or two, she will be probably strong enough to go home alone. We are not going to wait for correction placement again because it took last time a week for insurance company to answer on a correction placement for IV antibiotics and she understands she does not want to wait for a week for correction also. [place] Voice ID: [id number] Report ID: [id number]
[2022-08-14] MEDS: HOME MED 1 EA UNK [ROSUVASTATIN 5 MG TAB] PO SCH (21:00)
[2022-08-14] MEDS: TRAZODONE 50 MG TABLET PO SCH (21:29)
[2022-08-15] MEDS: LEVOTHYROXINE SOD 0.112 MG TAB PO SCH (05:39)
[2022-08-15] MEDS: LIOTHYRONINE SOD 5 MCG TAB PO SCH (05:39)
--- NOTE | 2022-08-15 08:37 | RAD REPORT ---
EXAM DESCRIPTION: Natan Single View08/15/2022 7:04 am CLINICAL HISTORY: Chest pain COMPARISON: August 14, 2022 FINDINGS: Mild bilateral pulmonary opacities unchanged Left pleural effusion mildly decreased in size. Mild left basilar atelectasis. Mild cardiomegaly
[2022-08-15] MEDS: ASPIRIN EC 81 MG TAB PO SCH (08:47)
[2022-08-15] MEDS: ursodioL 300 MG CAP PO SCH ×2 (08:47→21:00)
[2022-08-15] MEDS: AMLODIPINE 2.5 MG TAB PO SCH (08:48)
[2022-08-15] MEDS: ENOXAPARIN 40 MG/0.4 ML SQ SCH (08:48)
[2022-08-15] MEDS: HYDRALAZINE HCL 25 MG TABLET PO SCH ×2 (08:49→21:10)
[2022-08-15] MEDS: POTASSIUM CL SA 10 MEQ TAB PO SCH (08:49)
[2022-08-15] MEDS: PANTOPRAZOLE 40MG TABLET PO SCH (08:49)
[2022-08-15] MEDS: dexAMETHasone 4 MG TAB PO SCH (08:49)
[2022-08-15] MEDS: FAMOTIDINE 20 MG TAB PO SCH (08:49)
[2022-08-15] MEDS: LOSARTAN POTASSIUM 50 MG TABLET PO SCH (08:49)
[2022-08-15] MEDS: levoFLOXacin 750 MG TAB PO SCH (08:49)
[2022-08-15] MEDS: OXYBUTYNIN ER 5 MG TAB PO SCH (08:50)
[2022-08-15] MEDS: PREGABALIN 150 MG CAP PO SCH ×2 (08:50→21:10)
[2022-08-15] MEDS: FUROSEMIDE 40 MG TABLET PO SCH (08:50)
[2022-08-15 14:33] LABS: Magnesium 2.5 mg/dL (1.6-2.4); Potassium 4.8 mmol/L (3.5-5.1)
--- NOTE | 2022-08-15 15:27 | P.PN ---
Subjective Date of Service: 08/15/22 Chief Complaint: COVID-19 positive test (U07.1, COVID-19) with Acute Pneumonia (J12.89, Ot Subjective: Ambulating, Improving SHE IS STILL VERY WEAK, HAS OXYGEN SUPPORT. SHE IS LOT BETTER. STILL ON HIGH FLOW OXYGEN. SHE IS STRONGER BETTER STILL ON OXYGEN ABLE TO AMBULATE NOW. SHE IS LOT BETTER. STRONGER. WORRIED ABOUT HOW SHE WILL TAKE CARE OF HERSELF SHE LIVES ALONE. Review of Systems 10-point ROS is otherwise unremarkable General: Weakness Respiratory: Shortness of Breath (MILD) Physical Examination - Vital Signs Temperature: 97.7 F Blood Pressure: 139/52 Pulse: 57 Respirations: 12 Pulse Ox (%): 97 - Physical Exam General: Oriented x3, Mild distress, Obese HEENT: Atraumatic, PERRLA, EOMI Neck: Supple, JVD not distended Respiratory: Clear to auscultation bilaterally, Normal air movement Cardiovascular: Regular rate/rhythm, Normal S1 S2, Edema Gastrointestinal: Normal bowel sounds, No tenderness Musculoskeletal: No tenderness Integumentary: No rashes Neurological: Normal speech, Normal tone, Normal affect Lymphatics: No axilla or inguinal lymphadenopathy - Studies Medications List Reviewed: Yes Assessment And Plan - Current Problems (Diagnosis) (1) COVID Current Visit: Yes Status: Acute Plan: PAXLOVID STARTED BID IV STERIODS PER DR. PASCUAL. STABLE FOR NOW. HIGH FLOW OXYGEN IS LOWER AT 12 LT SHE MAY BE ABLE TO GO TO [place]. SHE IS STABLE. MAY TAKE TWO MORE DAYS HERE. DC ON TUESDAY. STABLE FOR NOW. (2) Viral pneumonia Current Visit: Yes Status: Acute (3) Hypertension Current Visit: Yes Status: Chronic Plan: BP HIGH, STARTED HOMEMEDS. FU DAILY. STOP AMLODIPINE HAS HAD EDEMA BEFORE. RAISE HDYRALAZINE. CAN'T USE B BLOCERKS OR ALPHA BLOCKERS HAS HAD LOW HR. Qualifiers: Hypertension type: primary hypertension Qualified Code(s): I10 - Essential (primary) hypertension
[2022-08-15 20:18] VITALS: O2SAT 96
[2022-08-15] MEDS: HOME MED 1 EA UNK [ROSUVASTATIN 5 MG TAB] PO SCH (21:00)
[2022-08-15] MEDS ORDERED: HOME MED 1 EA UNK (Hydralazine Hcl [Hydralazine Hcl] 50 MG Tablet) PO SCH (21:00)
[2022-08-15] MEDS: TRAZODONE 50 MG TABLET PO SCH (21:10)
[2022-08-16] MEDS: LEVOTHYROXINE SOD 0.112 MG TAB PO SCH (05:49)
[2022-08-16] MEDS: LIOTHYRONINE SOD 5 MCG TAB PO SCH (05:49)
[2022-08-16 08:53] VITALS: BP 160/61; TEMP 96.8
[2022-08-16] MEDS: FAMOTIDINE 20 MG TAB PO SCH (08:55)
[2022-08-16] MEDS: PANTOPRAZOLE 40MG TABLET PO SCH (08:55)
[2022-08-16] MEDS: LOSARTAN POTASSIUM 50 MG TABLET PO SCH (08:55)
[2022-08-16] MEDS: POTASSIUM CL SA 10 MEQ TAB PO SCH (08:55)
[2022-08-16] MEDS: ENOXAPARIN 40 MG/0.4 ML SQ SCH (08:55)
[2022-08-16] MEDS: HYDRALAZINE HCL 25 MG TABLET PO SCH (08:56)
[2022-08-16] MEDS: OXYBUTYNIN ER 5 MG TAB PO SCH (08:56)
[2022-08-16] MEDS: ursodioL 300 MG CAP PO SCH (08:56)
[2022-08-16] MEDS: ASPIRIN EC 81 MG TAB PO SCH (08:56)
[2022-08-16] MEDS: PREGABALIN 150 MG CAP PO SCH (08:57)
[2022-08-16] MEDS ORDERED: FUROSEMIDE 40 MG TABLET PO SCH (09:00)
--- NOTE | 2022-08-16 17:49 | P.DS ---
Admission Date: 08/09/22 Discharge Date: 08/16/22 Disposition: DC HOME/HOME HEALTH CARE Discharge Condition: FAIR Reason for Admission: COVID-19 positive test (U07.1, COVID-19) with Acute Pneumonia (J12.89, Ot - Problems (1) COVID Status: Acute (2) Viral pneumonia Status: Acute (3) Hypertension Status: Chronic Qualifiers: Hypertension type: primary hypertension Qualified Code(s): I10 - Essential (primary) hypertension Hospital Course: MS GARCIA CAME WITH COVID PNEUMONIA, IMPROVED WELL ON PAXLOVID AND LEVAQUIN. AT ONE POINT HSE WAS ON HIGH FLOW OXYGEN BUT GOT OFF IN A A WEEK. SHE IS STABLE TO GO HOME. I CHANGED MEDS FOR BP COTROL. SHE WILL GET HOME HEALTH AND AIDE. Vital Signs/Physical Exam: Temp Pulse Resp BP Pulse Ox 96.8 F 102 H 18 160/61 H 98 08/16/22 08:00 08/16/22 08:55 08/16/22 08:00 08/16/22 08:55 08/16/22 08:00 Laboratory Data at Discharge: WBC 9.10 K/uL (4.3-10.9) 08/13/22 14:47 Hgb 11.6 g/dL (12.0-15.0) L 08/13/22 14:47 Hct 35.3 % (36.0-45.0) L 08/13/22 14:47 Plt Count 220 K/uL (152-406) 08/13/22 14:47 PT 12.1 SECONDS (9.5-12.5) 08/09/22 19:25 INR 1.10 08/09/22 19:25 Sodium 139 mmol/L (136-145) 08/15/22 14:01 Potassium 4.8 mmol/L (3.5-5.1) 08/15/22 14:01 BUN 39 mg/dL (7-18) H 08/15/22 14:01 Creatinine 1.30 mg/dL (0.55-1.02) H 08/15/22 14:01 Glucose 256 mg/dL (74-106) H 08/15/22 14:01 Magnesium 2.5 mg/dL (1.6-2.4) H 08/15/22 14:01 Total Bilirubin 0.8 mg/dL (0.2-1.0) 08/09/22 19:25 AST 75 U/L (15-37) H 08/09/22 19:25 ALT 115 U/L (13-56) H 08/09/22 19:25 Alkaline Phosphatase 67 U/L (45-117) 08/09/22 19:25 Home Medications: Liothyronine Sodium [Cytomel] 5 mcg PO DAILY 01/01/21 ursodioL [Ursodiol] 300 mg PO BID 01/01/21 Furosemide [Lasix*] 40 mg PO DAILY 02/19/21 Oxybutynin Chloride [Ditropan*] 15 mg PO DAILY 02/19/21 Pregabalin [Lyrica*] 150 mg PO BID 02/19/21 Rabeprazole Sodium 20 mg PO DAILY 10/06/21 Levothyroxine [Synthroid*] 112 mcg PO [id number] 05/25/22 Rosuvastatin [Crestor*] 5 mg PO BEDTIME 05/25/22 Losartan Potassium 100 mg PO DAILY #90 tab 05/28/22 Potassium Chloride 20 meq PO DAILY 08/11/22 Hydralazine HCl 100 mg PO BID #180 08/16/22 levoFLOXacin [Levaquin*] 750 mg PO Q48H #5 tab 08/16/22 ursodioL [Actigall*] 300 mg PO BID cap 08/16/22 New Medications: Hydralazine HCl 100 mg PO BID #180 levoFLOXacin [Levaquin*] 750 mg PO Q48H #5 tab Followup: Eddie Solis MD [Primary Care Provider] - 1-2 Weeks (Call for appointment.)
== END 2022-08-16 11:50 | disposition home health service (06) | DRG 177 ==
LOC: ER 17:58 → ERHOLD 23:31 → 4TH 08-10 07:40
PROVIDERS: ADMIT Internal Medicine; ATTEND Internal Medicine
PROC: 5A09357 Assistance with Respiratory Ventilation, Less than 24 Consecutive Hours, Continuous Positive Airway Pressure (ICD-10-PCS; principal; 2022-08-10)
DX: U07.1 COVID-19 (principal); J12.82 Pneumonia due to coronavirus disease 2019; I24.8 Other forms of acute ischemic heart disease; R09.02 Hypoxemia; I10 Essential (primary) hypertension; E11.40 Type 2 diabetes mellitus with diabetic neuropathy, unspecified; K21.9 Gastro-esophageal reflux disease without esophagitis; G47.00 Insomnia, unspecified; E78.5 Hyperlipidemia, unspecified; N32.81 Overactive bladder; D64.9 Anemia, unspecified; E03.9 Hypothyroidism, unspecified; Z79.899 Other long term (current) drug therapy; I48.91 Unspecified atrial fibrillation; Z85.820 Personal history of malignant melanoma of skin; Z96.653 Presence of artificial knee joint, bilateral; Z96.611 Presence of right artificial shoulder joint; Z90.710 Acquired absence of both cervix and uterus; Z82.49 Family history of ischemic heart disease and other diseases of the circulatory system; Z82.5 Family history of asthma and other chronic lower respiratory diseases
CPT/HCPCS: 0241U; 36415; 71045; 71275; 80048; 80076; 82728; 82805; 83735; 83880; 84145; 84484; 85025; 85027; 85610; 86140; 93005; 94002; 94003; 94760; 96374; 96375; 97110; 97116; 97161; 97530; 99284; J1100; J1650; J1940; J7120; J8540; Q9967

== ENCOUNTER 2022-12-29 11:13 | Inpatient (IN) | payer BC, OTHER ==
--- OUTSIDE RECORDS SUMMARY | 2022-12-29 11:18 | XMS REPORT | Continuity of Care Document ---
:1940 Author Organization [facility] t Address [address] [facility]. [address] [place] [address] Care Team Providers Name Role Phone [phone] Primary Care Physician Unavailable Eagle Osborn Attending Clinician Unavailable SYSTEM, PROVIDER NOT IN Attending Clinician Unavailable MILDRED HBANDARI Attending Clinician Unavailable Rachele Knight Attending Clinician Rickey Rodas Attending Clinician Unavailable BE MATTHEWS Attending Clinician Unavailable Be Matthews Attending Clinician ALIE SHELL Attending Clinician Unavailable BRANDEN KAPADIA Attending Clinician Unavailable MD BRANDEN KAPADIA Attending Clinician Unavailable THELMA HEATH Attending Clinician Unavailable JEANINE LOWERY Attending Clinician Unavailable Eddie Solis V Admitting Clinician Unavailable BE MATTHEWS Admitting Clinician Unavailable BRANDEN KAPADIA Admitting Clinician Unavailable MD BRANDEN KAPADIA Admitting Clinician Unavailable Payers Payer Name Policy Type Policy Number Effective Date Expiration Date S ource [place] [id number] 2017 00:00:00 [place] [id number] 2022 ADVANTAGE 00:00:00 [place] [id number] 2014 00:00:00 MEDICARE PART A [id number] 2004 AND B 00:00:00 Problems Condition Condition Condition Status Onset Resolution Last Treating Co mments Source Name Details Category Date Date Treatment Clinician Date CICATRICIA CICATRICI Diagnosis Active 2022-01-11 Memoria L AL 01-06 16:39:00 l ECTROPION ECTROPION 00:00: Herm eder OF LEFT OF LEFT 00 LOWER EYEL LOWER EYEL Active 01/06/2022 [facility] CHF CHF Disease Active Method[facility] (congestiv (congestiv [...] Added automatic ally from request for surgery [id number] N28.89 - N28.89 - Diagnosis Active 2018-082019-08-02 Memoria OTHER OTHER 08:59:00 l SPECIFIED SPECIFIED 00:01: Herm eder DISORDERS DISORDERS 00 OF K OF K Active 07/31/2019 [facility] [place]am N28.89-OTH N28.89-OT Diagnosis Active 2018-082019-09-15 Memoria ER HER 15:33:00 l SPECIFIED SPECIFIED 00:00: Herm eder DISORDERS DISORDERS 00 OF KIDN OF KIDN Active 07/30/2019 [facility] Malignant Malignant Problem Resolve 2022-01-10 Memoria melanoma melanoma d 00:19:24 l (disorder) (disorder) He sarah Resolved Problem 01/10/2022 left arm [facility] OTHER OTHER Diagnosis Active 2019-09-15 Mem oria SPECIFIED SPECIFIED 15:33:00 l DISORDERS DISORDERS Herm eder OF KIDNEY OF KIDNEY AND AND Active [facility] UNSPECIFIE UNSPECIFI Diagnosis Active 2019-09-15 Memoria D URINARY ED URINARY 15:33:00 l INCONTINEN INCONTINEN He sarah CE CE Active [facility] CONSTANT CONSTANT Diagnosis Active 2021-12-30 Memoria EXOPHTHALM EXOPHTHALM 09:38:00 l OS, OS, Wild BILATERAL BILATERAL Active [facility] Atrial Atrial Problem Active 2022-08-11 Robert micky fibrillati fibrillati 23:35:27 l on on Wild (disorder) (disorder) Active Problem 08/11/2022 pt has watchman device [facility] Chronic Chronic Problem Active 2022-08-11 Me moria kidney kidney 23:35:27 l disease disease Wild (disorder) (disorder) Active Problem 08/11/2022 [facility] 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 23:35:27 l (disorder) (disorder) He rmann Active Problem 08/11/2022 [facility] Gastroesop Gastroeso Problem Active 2022-08-11 Memoria hageal phageal 23:35:27 l reflux reflux Golden disease disease (disorder) (disorder) Active Problem 08/11/2022 [facility], Sana Thomas [facility] Hyperchole Hyperchol Problem Active 2022-08-11 Memoria sterolemia esterolemi 23:35:27 l (disorder) a Kobi n (disorder) Active Problem 08/11/2022 [facility] Hypertensi Hypertens Problem Active 2022-08-11 Memoria ve [place] 23:35:27 l disorder, disorder, Herm eder systemic systemic arterial arterial (disorder) (disorder) Active Problem 08/11/2022 [facility], Sana Thomas [facility] Hypothyroi Hypothyro Problem Active 2022-08-11 Memoria dism idism 23:35:27 l (disorder) (disorder) He rmann Active Problem 08/11/2022 [facility], Sana Thomas [facility] Neuropathy Neuropath Problem Active 2022-08-11 Memoria (disorder) y 23:35:27 l (disorder) Kobi n Active Problem 08/11/2022 [facility] Osteoarthr Osteoarth Problem Active 2022-08-11 Memoria itis ritis 23:35:27 l (disorder) (disorder) He rmann Active Problem 08/11/2022 [facility] Simple Simple Problem Active 2022-08-11 Robert micky obesity obesity 23:35:27 l (disorder) (disorder) He rmann Active Problem 08/11/2022 [facility], Sana Thomas [facility] Sleep Sleep Problem Active 2022-08-11 Memor ia apnea apnea 23:35:27 l (finding) (finding) Ayanna gaines Active Problem 08/11/2022 does not use cpap [facility] Urinary Urinary Problem Active 2022-08-11 Me moria incontinen incontinen 23:35:27 l ce ce Wild (finding) (finding) Active Problem 08/11/2022 [facility] History of Past Illness Condition Condition Condition Status Onset Resolution Last Treating Co mments Source Name Details Category Date Date Treatment Clinician Date Exposure Exposure Problem 2022-01-10 2022-01-10 Memoria keratoconj keratoconj 01-07 00:19:24 00:19:24 l unctivitis unctivitis 19:00: He sarah , , 00 bilateral bilateral 01/07/2022 01/10/2022 [facility] Unspecifie Unspecifi Problem 2022-01-10 2022-01-10 Memoria d ed 01-07 00:19:24 00:19:24 l entropion entropion 19:00: Herm eder of right of right 00 lower lower eyelid eyelid 01/07/2022 01/10/2022 [facility] Unspecifie Unspecifi Problem 2022-01-10 2022-01-10 Memoria d ed 01-07 00:19:24 00:19:24 l ectropion ectropion 19:00: Herm eder of left of left 00 lower lower eyelid eyelid 01/07/2022 [facility] Unspecifie Unspecifi Problem 2022-01-10 2022-01-10 Memoria d ed 01-07 00:19:24 00:19:24 l exophthalm exophthalm 18:59: He sarah os os 00 01/07/2022 [facility] Brow Brow Problem 2022-01-10 2022-01-10 M emoria ptosis, ptosis, 01-07 00:19:24 00:19:24 l unspecifie unspecifie 18:59: He rmann d d 00 01/07/2022 [facility] Unspecifie Unspecifi Problem 2022-01-10 2022-01-10 Memoria d ptosis ed ptosis 01-07 00:19:24 00:19:24 l of of 18:59: Wild bilateral bilateral 00 eyelids eyelids 01/07/2022 01/10/2022 [facility] Allergies, Adverse Reactions, Alerts Allergy Allergy Status Severity Reaction(s) Onset Inactive Treating Comm ents Source Name Type Date Date Clinician No Known DA Active [facility] Allergie 329 Clear s 00:00: Collins 00 [facility] No Known DA Active [facility] Allergie 329 Clear s 00:00: Collins 00 [facility] INDOMETH DRUG Active Other MD ACIN INGREDI 3-11 Anderso 00:00: n 00 INDOMETH DRUG Active Other MD ACIN INGREDI 3-11 Anderso 00:00: n 00 INDOMETH DRUG Active Other MD ACIN INGREDI 3-11 Anderso 00:00: n 00 INDOMETH DRUG Active Other MD ACIN INGREDI 3-11 Anderso 00:00: n 00 INDOMETH DRUG Active Other MD ACIN INGREDI 3-11 Anderso 00:00: n 00 INDOMETH DRUG Active Other MD ACIN INGREDI 3-11 Anderso 00:00: n 00 No Known DA Active [facility] Drug 7-13 Clear Allergie 00:00: Collins s 00 [facility] No Known DA Active [facility] Drug 7-13 Clear Allergie 00:00: Collins s 00 [facility] No Known No Known Active Memori a Medicati Medicati l on on Wild Allergie Allergie s s Social History Social Habit Start Date Stop Date Quantity Comments Source Sexual [facility] Gender identity [facility] History of Social 2022-11-03 2022-11-03 [facility] function 00:00:00 00:00:00 Social History 2021-12-17 2021-12-17 [facility] keyshawn 15:55:16 15:55:16 Sex Ass[birth year] At [birth year] [facility] 00:00:00 00:00:00 Smoking Status Start Date Stop Date Source Tobacco smoking consumption unknown [facility] Tobacco smoking status [facility] Medications Ordered Filled Start Stop Current Ordering Indication Dosage Frequency Signature Comments Components Source Medication Medication Date Date Medication? Clinician (SIG) Name Name sugammadex 0 No Route: IV, Sana emoria (ANES) 01-07 Drug form: l 19:24: SOLN, Golden 00 ONCE, Stop date: 01/07/22 14:24:00 CDT sugammadex 2021-0 No Route: IV, Sana emoria (ANES) 01-07 Drug form: l 19:24: SOLN, Golden 00 ONCE, Stop date: 01/07/22 14:24:00 CDT sugammadex 2021-0 No Route: IV, Sana emoria (ANES) 01-07 Drug form: l 19:24: SOLN, Golden 00 ONCE, Stop date: 01/07/22 14:24:00 CDT ondansetron 2021-0 No Route: IV, Memoria (ANES) 01-07 Drug form: l 19:18: INJ, ONCE, Wild Stop date: 01/07/22 14:18:00 CDT ondansetron 2021-0 No Route: IV, Memoria (ANES) 01-07 Drug form: l 19:18: INJ, ONCE, Wild Stop date: 01/07/22 14:18:00 CDT ondansetron 2021-0 No Route: IV, Memoria (ANES) 01-07 Drug form: l 19:18: INJ, ONCE, Wild 00 Stop date: 01/07/22 14:18:00 CDT ANES 2021-0 No 0.4 mg, Memoria [...] Memoria hydrALAZINE 01-07 Route: l 18:59: IVP, Golden 00 Q20Min, Dosing Weight 86.1, kg, PRN Elevated BP, Start date: 01/07/22 13:59:00 CDT, Duration: 2 doses or times, Stop date: Limited # of times ANES 0 No 1,000 mg, Memoria acetaminoph 01-07 Route: PO, l en 18:59: Drug form: Golden 00 TAB, ONCE, Dosing Weight 86.1, kg, [...] HYDROmorpho 01-07 Route: l ne 18:59: IVP, Golden 00 Q5Min, Dosing Weight 86.1, kg, PRN [...] Memoria naloxone 01-07 Route: l 18:59: IVP, Golden 00 Q2MIN, Dosing Weight 86.1, kg, PRN [...] Route: PO, l en 18:59: Drug form: Golden 00 TAB, ONCE, Dosing Weight 86.1, kg, PRN Pain Score 1-3, Start date: 01/07/22 13:59:00 CDT ANES 2021-0 No 5 mg, Memoria oxyCODONE 5 01-07 Route: PO, l mg 18:59: Drug form: Golden immediate 00 TAB, Q4H, release Dosing tablet Weight 86.1, kg, PRN Pain Score 4-6, Start date: 01/07/22 13:59:00 CDT, Duration: 30 day, Stop date: 02/06/22 13:58:00 CDT ANES 2021-0 No 0.2 mg, Memoria HYDROmorpho 01-07 Route: l ne 18:59: IVP, Golden 00 Q5Min, Dosing Weight 86.1, kg, PRN [...] date: 02/06/22 13:58:00 CDT ANES 0 No 0.4 mg, Memoria naloxone 01-07 Route: l 18:59: IVP, Golden 00 Q2MIN, Dosing Weight 86.1, kg, PRN Narcotic Reversal, Start date: 01/07/22 13:59:00 CDT, Duration: 8 doses or times, Stop date: Limited # of times ANES No 4 mg, Memoria ondansetron 01-07 Route: l 18:59: IVP, ONCE, Golden 00 Dosing Weight 86.1, kg, PRN Nausea & Vomiting, Start date: 01/07/22 13:59:00 CDT ANES 0 No 6.25 mg, Memoria promethazin 01-07 Route: l e 18:59: IVPB, Wild 00 ONCE, Dosing Weight 86.1, kg, PRN Nausea & Vomiting, Start date: 01/07/22 13:59:00 CDT ANES 0 No 10 mg, Memoria hydrALAZINE 01-07 Route: l 18:59: IVP, Golden 00 Q20Min, Dosing Weight 86.1, kg, PRN Elevated BP, Start date: 01/07/22 13:59:00 CDT, Duration: 2 doses or times, Stop date: Limited # of times ANES 0 No 1,000 mg, Memoria acetaminoph 01-07 Route: PO, l en 18:59: Drug form: Golden 00 TAB, ONCE, Dosing Weight 86.1, kg, [...] HYDROmorpho 01-07 Route: l ne 18:59: IVP, Wild 00 Q5Min, Dosing Weight 86.1, kg, PRN Pain Score 7-10, Start date: 01/07/22 13:59:00 CDT, Duration: 4 doses or times, Stop date: Limited # of times ANES 0 No 0.2 mg, Memoria flumazenil 01-07 Route: l 18:59: IVP, PRN, Golden 00 Dosing Weight 86.1, kg, PRN Benzodiaze pine Reversal, Initial dose, Start date: 01/07/22 13:59:00 CDT, Duration: 30 day, Stop date: 02/06/22 13:58:00 CDT atropine No Route: IV, Mem oria (ANES) 01-07 Drug form: l 18:17: INJ, ONCE, Stop date: 01/07/22 13:17:00 CDT atropine 0 No Route: IV, Mem oria (ANES) 01-07 Drug form: l 18:17: INJ, ONCE, Stop date: 01/07/22 13:17:00 CDT atropine 0 No Route: IV, Mem oria (ANES) 01-07 Drug form: l 18:17: INJ, ONCE, Stop date: 01/07/22 13:17:00 CDT lidocaine No Route: IV, Me moria (ANES) 01-07 Drug form: l 18:07: INJ, ONCE, Stop date: 01/07/22 13:07:00 CDT propofol No Route: IV, Mem oria (ANES) 01-07 Drug form: l 18:07: INJ, ONCE, Stop date: 01/07/22 13:07:00 CDT rocuronium 2-0 No Route: IV, M emoria (ANES) 01-07 Drug form: l 18:07: INJ, ONCE, Stop date: 01/07/22 13:07:00 CDT glycopyrrol 2021-0 No Route: IV, Memoria ate (ANES) 01-07 Drug form: l 18:07: INJ, ONCE, Stop date: 01/07/22 13:07:00 CDT ketAMINE 2021-0 No Route: IV, Mem oria (ANES) 01-07 Drug form: l 18:07: INJ, ONCE, Stop date: 01/07/22 13:07:00 CDT lidocaine 2022-0 No Route: IV, Me moria (ANES) 01-07 Drug form: l 18:07: INJ, ONCE, Stop date: 01/07/22 13:07:00 CDT propofol 2022-0 No Route: IV, Mem oria (ANES) 01-07 Drug form: l 18:07: INJ, ONCE, Stop date: 01/07/22 13:07:00 CDT rocuronium 2021-0 No Route: IV, M emoria (ANES) 01-07 Drug form: l 18:07: INJ, ONCE, Stop date: 01/07/22 13:07:00 CDT glycopyrrol 2021-0 No Route: IV, Memoria ate (ANES) 01-07 Drug form: l 18:07: INJ, ONCE, Stop date: 01/07/22 13:07:00 CDT ketAMINE 2-0 No Route: IV, Mem oria (ANES) 01-07 Drug form: l 18:07: INJ, ONCE, Stop date: 01/07/22 13:07:00 CDT lidocaine 2022-0 No Route: IV, Me moria (ANES) 01-07 Drug form: l 18:07: INJ, ONCE, Stop date: 01/07/22 13:07:00 CDT propofol 2022-0 No Route: IV, Mem oria (ANES) 01-07 [...] No Route: IV, Me moria PH 7.4 6-09 Total l (ANES) 500 18:00: Volume: Herm eder mL 00 500, Start date: 01/07/22 13:00:00 CDT, Stop date: 01/07/22 14:00:00 CDT Isolyte S No Route: IV, Me moria PH 7.4 6-09 Total l (ANES) 500 18:00: Volume: Herm eder mL 00 500, Start date: 01/07/22 13:00:00 CDT, Stop date: 01/07/22 14:00:00 CDT Isolyte S No Route: IV, Me moria PH 7.4 6-09 Total l (ANES) 500 18:00: Volume: Herm eder mL 00 500, Start date: 01/07/22 13:00:00 CDT, Stop date: 01/07/22 14:00:00 CDT EPINEPHrine No Route: IV, Memoria (ANES) 01-07 Drug form: l 17:26: INJ, ONCE, Stop date: 01/07/22 12:26:00 CDT EPINEPHrine No Route: IV, Memoria (ANES) 01-07 Drug form: l 17:26: INJ, ONCE, Stop date: 01/07/22 12:26:00 CDT EPINEPHrine 2021-0 No Route: IV, Memoria (ANES) 01-07 Drug form: l 17:26: INJ, ONCE, Stop date: 01/07/22 12:26:00 CDT ceFAZolin 2021-0 No Route: IV, Me moria (ANES) 01-07 Drug form: l 17:10: INJ, ONCE, Stop date: 01/07/22 12:10:00 CDT ceFAZolin 2021-0 No Route: IV, Me moria (ANES) 01-07 Drug form: l 17:10: INJ, ONCE, Stop date: 01/07/22 12:10:00 CDT ceFAZolin 2021-0 No Route: IV, Me moria (ANES) 01-07 Drug form: l 17:10: INJ, ONCE, Stop date: 01/07/22 12:10:00 CDT Isolyte S 2021-0 No Route: IV, Me moria PH 7.4 6-09 Total l (ANES) 1000 16:00: Volume: Her sykes mL 00 1,000, Start date: 01/07/22 11:00:00 CDT, Stop date: 01/07/22 12:00:00 CDT Isolyte S 2021-0 No Route: IV, Me moria PH 7.4 6-09 Total l (ANES) 1000 16:00: Volume: Her sykes mL 00 1,000, Start date: 01/07/22 11:00:00 CDT, Stop date: 01/07/22 12:00:00 CDT Isolyte S 2021-0 No Route: IV, Me moria PH 7.4 6-09 Total l (ANES) 1000 16:00: Volume: Her sykes mL 00 1,000, Start date: 01/07/22 11:00:00 CDT, Stop date: 01/07/22 12:00:00 CDT Isolyte S 2021-0 No 1,000 mL, Mem oria PH 7.4 6-09 Rate: 75 l 1,000 mL 15:01: ml/hr, Infuse over: 13.3 hr, Route: IV, Dosing Weight 84 kg, Total Volume: 1,000, Start date: 01/07/22 10:01:00 CDT, Duration: 30 day, Stop date: 02/06/22 10:00:00 CDT, BSA: 2 m2, 0 acetaminoph 2022-0 No 1,000 mg, M emoria en 01-07 Route: PO, l 15:01: Drug form: Wild TAB, PRE OP, Dosing Weight 84, kg, Priority: NOW, Start date: 01/07/22 10:01:00 CDT, Duration: 1 doses or times Isolyte S 2022-0 No 1,000 mL, Mem oria PH 7.4 01-07 Rate: 75 l 1,000 mL 15:01: ml/hr, Infuse over: 13.3 hr, Route: IV, Dosing Weight 84 kg, Total Volume: 1,000, Start date: 01/07/22 10:01:00 CDT, Duration: 30 day, Stop date: 02/06/22 10:00:00 CDT, BSA: 2 m2, 0 acetaminoph 2022-0 No 1,000 mg, M emoria en 01-07 Route: PO, l 15:01: Drug form: Wild TAB, PRE OP, Dosing Weight 84, kg, Priority: NOW, Start date: 01/07/22 10:01:00 CDT, Duration: 1 doses or times Isolyte S 2022-0 No 1,000 mL, Mem oria PH 7.4 01-07 Rate: 75 l 1,000 mL 15:01: ml/hr, Infuse over: 13.3 hr, Route: IV, Dosing Weight 84 kg, Total Volume: 1,000, Start date: 01/07/22 10:01:00 CDT, Duration: 30 day, Stop date: 02/06/22 10:00:00 CDT, BSA: 2 m2, 0 acetaminoph 2022-0 No 1,000 mg, M emoria en 01-07 Route: PO, l 15:01: Drug form: Wild 00 TAB, PRE OP, Dosing Weight 84, kg, Priority: NOW, Start date: 01/07/22 10:01:00 CDT, Duration: 1 doses or times oxybutynin 2022-0 Yes 5 mg = 1 Mem oria 5 mg oral 5-19 tab, PO, l tablet 15:31: QPM, # 60 Kobi n 00 tab, 1 Refill(s) ursodiol Yes 300 mg = 1 Mem oria 300 mg oral 5-19 cap, PO, l capsule 15:30: BID, # 180 Herm eder 00 cap, 0 Refill(s) Lyrica 150 0 Yes 150 mg = 1 M emoria mg oral 5-19 cap, PO, l capsule 15:30: BID, # 60 Arabella nn 00 cap, 1 Refill(s) magnesium Yes 400 mg = 1 Me moria oxide 5-19 tab, PO, l 15:30: BID, # 20 Golden 00 tab, 0 Refill(s) cranberry 0 Yes 0 Memoria 5-19 Refill(s) l 15:30: Golden 00 Zinc 0 Yes 140 mg, Memoria 5-19 PO, Daily, l 15:30: 0 Wild 00 Refill(s) Synthroid Yes 125 Memoria 125 mcg 5-19 microgram l (0.125 mg) 15:29: = 1 tab, Her sykes oral tablet 00 PO, QAM, # 30 tab, 0 Refill(s) Uloric 80 0 Yes 80 mg = 1 Mem oria mg oral 5-19 tab, PO, l tablet 15:29: QAM, # 30 Kobi n 00 tab, 0 Refill(s) Aciphex 20 0 Yes 20 mg = 1 Me moria mg oral 5-19 tab, PO, l enteric 15:28: QAM, # 30 Arabella nn coated 00 tab, 1 tablet Refill(s) Crestor 5 0 Yes 5 mg = 1 Robert micky mg oral 5-19 tab, PO, l tablet 15:28: QAM, # 60 Kobi n 00 tab, 0 Refill(s) amLODIPine 0 Yes 5 mg, PO, Me moria 5-19 QAM, 0 l 15:27: Refill(s) Wild 00 Lasix 40 mg 0 Yes 40 mg = 1 M emoria oral tablet 5-19 tab, PO, l 15:27: QAM, # 90 Wild 00 tab, 0 Refill(s) AMIODarone Yes 200 mg = 1 M emoria 200 mg oral 5-19 tab, PO, l tablet 15:25: QAM, # 90 Kobi n 00 tab, 3 Refill(s) liothyronin Yes 5ug QD Take 5 mcg [...] l times a day. ferrous Yes 18mg Q.[id number] Take 18 mg [facility] sulfate 325 6-25 [id number] (65 FE) MG 19:01: 3D (three) Hosp radames tablet 13 times a l day with meals. Patient takes 18mg PO TID febuxostat Yes 40mg QD Take 40 mg M ethodi (ULORIC) 40 6-[address] mg tablet 19:01: daily. Hospit a 13 l lidocaine 0 Yes 1{patch Q24H Place 1 Me thodi (LIDODERM) 6-25 } patch on st 5 % 19:01: the skin Hospita 13 daily. l Apply to neck for pain reliefRemo ve & Discard patch within 12 hours [place] [id number] 5mL Q6H Take 5 mL [facility] ifenesin [...] l times a day. ferrous Yes 18mg Q.06270135 Take 18 mg [facility] sulfate 325 6-25 [id number] [facility] [address] (65 FE) MG [...] or as [place] [id number] 5mL Q6H Take 5 mL [facility] ifenesin [...] tablet 19:01: daily. Hosp radames 13 l aspirin Yes 81mg QD Take 81 mg Meth beth (ECOTRIN) 6-[address] 81 MG 19:01: daily. Hospita enteric 13 l coated tablet clopidogreL 0 Yes 75mg QD Take 75 mg [facility] (PLAVIX) 75 6-[address] mg tablet 19:01: daily. ON Hos evelyn 13 HOLD FOR l PROCEDURE TUESDAY levothyroxi 0 Yes 125ug QD Take 125 M ethodi [...] l times a day. ferrous Yes 18mg Q.[id number] Take 18 mg [facility] sulfate 325 6-25 [id number] mouth [address] (65 FE) MG [...] or as directed [place] [id number] 5mL Q6H Take 5 mL [facility] ifenesin 6-[address] (GUAIFENESI 19:01: every 6 Hos evelyn N AC) 13 (six) l 10-100 mg/5 hours as mL liquid needed for cough .acute pain. meclizine Yes 25mg Q.[id number] Take 2 [facility] (ANTIVERT) 6-[id number] 12.5 mg 00:00: 3D (25 mg Hospita tablet 00 total) by l mouth 3 (three) times a day as needed for dizziness. ipratropium Yes [id number] .5mg Q.00163495 Take 2.5 [facility] (ATROVENT) 6-25 [id number] mL (0.[address] 0.02 % 00:00: 3D total) by Hospit a nebulizer 00 nebulizati l solution on 3 (three) times a day. meclizine Yes 25mg Q.[id number] Take 2 [facility] (ANTIVERT) 6-[id number] 12.5 mg 00:00: 3D (25 mg Hospita tablet 00 total) by l mouth 3 (three) times a day as needed for dizziness. ipratropium Yes [id number] .5mg Q.[id number] Take 2.5 [facility] (ATROVENT) 6-25 [id number] mL (0.[address] 0.02 % 00:00: 3D total) by Hospit a nebulizer 00 nebulizati l solution on 3 (three) times a day. meclizine Yes 25mg Q.[id number] Take 2 [facility] (ANTIVERT) 6-[id number] 12.5 mg 00:00: 3D (25 mg Hospita tablet 00 total) by l mouth 3 (three) times a day as needed for dizziness. ipratropium Yes [id number] .5mg Q.[id number] Take 2.5 [facility] (ATROVENT) 6-25 [id number] mL (0.[address] 0.02 % 00:00: 3D total) by Hospit a nebulizer 00 nebulizati l solution on 3 (three) times a day. Aspirin 2018-08 Yes 0 Memoria 2-16 Refill(s) l 16:34: Wild 00 Vitamin D3 2018-08 Yes 1,000 Memori a 1000 intl 2-16 IntlUnit = l units oral 16:34: 1 cap, PO, H ermann capsule 00 Daily, 0 Refill(s) Benadryl 2018-08 Yes 0 Memoria 2-16 Refill(s) l 16:34: Wild 00 colesevelam 2018-08 Yes 1,875 mg = Memoria 625 mg oral 2-16 3 tab, PO, l tablet 16:34: BID, 0 Wild 00 Refill(s) Aspirin 2018-08 Yes 0 Memoria 2-16 Refill(s) l 16:34: Golden 00 Vitamin D3 2018-08 Yes 1,000 Memori a 1000 intl 2-16 IntlUnit = l units oral 16:34: 1 cap, PO, H ermann capsule 00 Daily, 0 Refill(s) Benadryl 2018-08 Yes 0 Memoria 2-16 Refill(s) l 16:34: Golden 00 colesevelam 2018-08 Yes 1,875 mg = Memoria 625 mg oral 2-16 3 tab, PO, l tablet 16:34: BID, 0 Golden 00 Refill(s) Aspirin 2018-08 Yes 0 Memoria 2-16 Refill(s) l 16:34: Golden 00 Vitamin D3 2018-08 Yes 1,000 Memori a 1000 intl 2-16 IntlUnit = l units oral 16:34: 1 cap, PO, H ermann capsule 00 Daily, 0 Refill(s) Benadryl 2018-08 Yes 0 Memoria 2-16 Refill(s) l 16:34: Golden 00 colesevelam 2018-08 Yes 1,875 mg = Memoria 625 mg oral 2-16 3 tab, PO, l tablet 16:34: BID, 0 Golden 00 Refill(s) aspirin 2018-08 Yes 81 mg, PO, Robert micky 2-16 Daily, 0 l 16:34: Refill(s) Golden 00 Benadryl 2018-08 Yes 25 mg, Memoria 2-16 Bedtime, 0 l 16:34: Refill(s) Golden 24 HR 2018-08 Yes 50 mg = 1 Memoria mirabegron 2-16 tab, PO, l 50 MG 16:03: Daily, # Wild Extended 00 30 tab, 0 Release Refill(s), Tablet Pharmacy: [Myrbetriq] [facility] 2018-08 Yes 50 mg = 1 Memoria mirabegron 2-16 tab, PO, l 50 MG 16:03: Daily, # Golden Extended 00 30 tab, 0 Release Refill(s), Tablet Pharmacy: [Myrbetriq] [facility] 2018-08 Yes 50 mg = 1 Memoria mirabegron 2-16 tab, PO, l 50 MG 16:03: Daily, # Golden Extended 00 30 tab, 0 Release Refill(s), Tablet Pharmacy: [Myrbetriq] [facility] liothyronin 2018-08 Yes 5 Memori a e [...] tab, PO, l Tablet 15:29: Daily, # Golden [Uloric] 00 30 tab, 0 Refill(s) carvedilol [...] tab, PO, l tablet 15:29: Daily, 0 Golden 00 Refill(s) oxybutynin 2018-08 Yes 15 mg [...] tab, PO, l tablet 15:29: Daily, 0 Golden 00 Refill(s) febuxostat 2018-08 Yes 80 mg = 1 Me moria 80 MG Oral 2-16 tab, PO, l Tablet 15:29: Daily, # Golden [Uloric] 00 30 tab, 0 Refill(s) carvedilol 2018-08 Yes 12.5 mg = Me moria 12.5 mg 2-16 1 tab, PO, l oral tablet 15:29: BID, 0 Herm eder 00 Refill(s) ursodiol 2018-08 Yes 300 mg = 1 Mem oria 300 mg oral 2-16 cap, PO, l capsule 15:29: BID, 0 Golden 00 Refill(s) pregabalin 2018-08 Yes 150 mg = 1 M emoria 150 MG Oral 2-16 cap, PO, l Capsule 15:29: BID, 0 Golden [Lyrica] 00 Refill(s) doxazosin 4 2018-08 Yes 4 mg = 1 Me moria mg oral 2-16 tab, PO, l tablet 15:29: Daily, 0 Golden 00 Refill(s) oxybutynin 2018-08 Yes 15 mg = 1 Me moria 15 mg oral 2-16 tab, PO, l tablet, 15:29: Daily, 0 Kobi n extended 00 Refill(s) release RABEprazole 2018-08 Yes 20 mg = 1 [...] cap, PO, l capsule 15:29: BID, 0 Golden 00 Refill(s) pregabalin 2018-08 Yes 150 mg = 1 M emoria 150 MG Oral 2-16 cap, PO, l Capsule 15:29: BID, 0 Golden [Lyrica] 00 Refill(s) doxazosin 4 2018-08 Yes 4 mg = 1 Me moria mg oral 2-16 tab, PO, l tablet 15:29: Daily, 0 Golden 00 Refill(s) oxybutynin 2018-08 Yes 15 mg = 1 Me moria 15 mg oral 2-16 tab, PO, l tablet, 15:29: Daily, 0 Kobi n extended 00 Refill(s) release liothyronin 2018-08 Yes 5 Memori a e 5 mcg 2-16 microgram l oral tablet 15:29: = 1 tab, He rmann 00 PO, Daily, 0 Refill(s) Vital Signs Vital Name Observation Time Observation Value Comments Source Respitory Rate 2022-01-07 21:45:00 Memori al Golden Systolic (mm Hg) 2022-01-07 21:45:00 Robert rial Golden Diastolic (mm Hg) 2022-01-07 21:45:00 Mem orial Wild Respitory Rate 2022-01-07 21:30:00 Memori al Golden Systolic (mm Hg) 2022-01-07 21:30:00 Robert rial Wild Diastolic (mm Hg) 2022-01-07 21:30:00 Mem orial Wild Respitory Rate 2022-01-07 21:15:00 Memori al Golden Systolic (mm Hg) 2022-01-07 21:15:00 Robert rial Golden Diastolic (mm Hg) 2022-01-07 21:15:00 Mem orial Wild Height 2022-01-07 15:36:00 167.64 cm [facility] Golden Weight 2022-01-07 15:36:00 [facility] Wild BMI Calculated 2022-01-07 15:36:00 Memori al Wild Heart Rate 2022-01-07 15:20:00 Memorial Wild Height 2022-01-07 15:01:00 167.64 cm [facility] Weight 2022-01-07 15:01:00 [facility] BMI Calculated 2022-01-07 15:01:00 Memori al Wild Height 2019-08-13 17:17:00 167.64 cm [facility] Wild Weight 2019-08-13 17:17:00 [facility] Golden BMI Calculated 2019-08-13 17:17:00 Memori al Golden Systolic (mm Hg) 2019-07-16 15:23:00 Robert rial Wild Diastolic (mm Hg) 2019-07-16 15:23:00 Mem orial Wild Heart Rate 2019-07-16 15:23:00 [facility] Wild Height 2019-07-16 15:23:00 167.64 cm [facility] Wild Weight 2019-07-16 15:23:00 [facility] BMI Calculated 2019-07-16 15:23:00 Memori al Wild Procedures Procedure Date / Time Performing Clinician Source Performed [id number] 2020-10-29 00:00:00 RASSA [facility] Measurement of 2019-07-16 16:18:00 [facility] sykes post-voiding residual urine and/or bladder capacity by ultrasound, non-imaging Hysterectomy [facility] Wild Operation [facility] Golden Breast biopsy and related Memori al Golden procedures Carpal tunnel release [facility] H ermann Shoulder replacement [facility] rmann Knee replacement [facility] Kobi n Tonsillectomy and [facility] Arabella nn adenoidectomy Plan of Care Planned Activity Planned Date Details Comments Source Future Scheduled 2022-11-04 COVID-19 VACCINE (#1) [facility] Test 05:00:00 [code = COVID-19 VACCINE (#1)] Future Scheduled 2022-11-04 SHINGLES VACCINES (1 Met [facility] Test 05:00:00 of 2) [code = SHINGLES VACCINES (1 of 2)] Future Scheduled 2022-11-04 65+ [facility]AL [facility] Test 05:00:00 VACCINE (2 - PCV) [code = 65+ PNEUMOCOCCAL VACCINE (2 - PCV)] Future Scheduled 2022-11-04 INFLUENZA VACCINE [facility] Test 05:00:00 [code = INFLUENZA VACCINE] Future Scheduled 2022-07-20 COVID-19 VACCINE (#1) [facility] Test 11:25:01 [code = COVID-19 VACCINE (#1)] Future Scheduled 2022-07-20 SHINGLES VACCINES (1 Met [facility] Test 11:25:01 of 2) [code = SHINGLES VACCINES (1 of 2)] Future Scheduled 2022-07-20 65+ [facility] 11:25:01 VACCINE (2 - PCV) [code = 65+ PNEUMOCOCCAL VACCINE (2 - PCV)] Future Scheduled 2022-07-20 INFLUENZA VACCINE Method [facility] Test 11:25:01 [code = INFLUENZA VACCINE] Future Scheduled 2022-03-30 HEPATITIS B VACCINES Met [facility] Test 23:59:48 (1 of 3 - 3-dose series) [code = HEPATITIS B VACCINES (1 of 3 - 3-dose series)] Future Scheduled 2022-03-30 COVID-19 VACCINE (#1) [facility] Test 23:59:48 [code = COVID-19 VACCINE (#1)] Future Scheduled 2022-03-30 SHINGLES VACCINES (1 Met [facility] Test 23:59:48 of 2) [code = SHINGLES VACCINES (1 of 2)] Future Scheduled 2022-03-30 65+ PNEUMOCOCCAL [facility] Test 23:59:48 VACCINE (2 - PCV) [code = 65+ PNEUMOCOCCAL VACCINE (2 - PCV)] Future Scheduled 2022-03-30 INFLUENZA VACCINE Method [facility] Test 23:59:48 [code = INFLUENZA VACCINE] Encounters Start End Encounter Admission Attending Care Care Encounter Source Date/Time Date/Time Type Type Clinicians Facility Department ID 2022-01-29 Outpatient [facility] [id number] [place] 12:49:04 [id number] [facility] 2022-01-13 Outpatient [facility] [id number] [place] 15:20:56 [id number] [facility] 2020-11-26 Inpatient PHAN Hodge [facility] [id number] [facility] 14:00:00 Eagle 21 [facility] 2020-10-17 Inpatient PHAN OsbornCL [id number] [facility] 17:21:45 Eagle 88 [facility] 2020-10-13 Outpatient TAYA CASH MDA [id number] 13:14:56 PROVIDER Obed tidwell 2019-07-30 Outpatient MHSE KAEL 7500 [place] 12:25:32 [facility] 2022-10-15 2022-10-15 Outpatient JORDAN BHANDARI MDA MDA [id number] 08:07:31 09:25:58 MILDRED tidwell 2022-10-15 2022-10-15 Outpatient JORDAN BHANDARI MDA MDA [id number] 07:43:47 07:43:47 MILDRED tidwell 2022-08-09 2022-08-09 Ambulatory MHIE MG [facility] [id number] Memoria 16:00:00 16:00:00 Pre-Reg Specialty 02 [facility] 2022-08-09 2022-08-09 Outpatient MHIE MHIE [id number] Memoria 10:00:00 10:00:00 02 [facility] 2022-08-09 2022-08-09 Outpatient MHIE MHIE [id number] Memoria 10:00:00 10:00:00 02 [facility] 2022-08-09 2022-08-09 Outpatient Eugene [facility] [id number] 10:00:00 10:00:00 Rachele L 02 2022-07-20 2022-07-20 Patient Rickey Rodas 1.2.840.1 [id number] Methodi 00:00:00 00:00:[id number] 3.430.2.7 Hospit a .3.237753 l .8 2022-07-20 2022-07-20 Patient Rickey Rodas 1.2.840.1 [id number] Methodi 00:00:00 00:00:00 [facility] 66171.1.1 0 3.430.2.7 [facility] 3.246825 l .8 2022-01-07 2022-01-08 Day nullFlavo [facility] [id number] Memoria 12:52:00 04:59:00 Surgery [facility] 02 [facility] 2022-01-07 2022-01-08 Day nullFlavo [facility] [id number] Memoria 12:52:00 04:59:00 Surgery [facility] 02 [facility] 2022-01-07 2022-01-07 Outpatient BENJAMÍN, [facility] [id number] [facility] 07:52:00 23:59:00 BE 2022-01-07 2022-01-07 Outpatient Benjamín, [facility] [id number] 07:52:00 23:59:00 Be 02 mad 2021-12-23 2021-12-23 Outpatient BENJAMÍN, [facility] [id number] [facility] 09:15:00 23:59:00 BE 2021-10-23 2021-10-23 Outpatient JORDAN SHELL MDA MDA [id number] 09:17:50 09:17:50 ALIE tidwell 2021-10-23 2021-10-23 Outpatient JORDAN SHELL MDA MDA [id number] 08:18:09 08:18:09 ALIE tidwell 2021-01-17 2021-01-23 Inpatient BRANDEN KAPADIA [facility] [id number] [place] 00:00:00 00:00:[address] 2020-10-03 2020-10-08 Outpatient JORDAN HEATH MDA MDA [id number] 09:19:28 08:21:37 THELMA tidwell 2020-10-03 2020-10-03 Outpatient JORDAN HEATH MDA MDA [id number] 08:59:38 23:59:00 THELMA tidwell 2019-08-13 2019-08-14 Outpatient nullFlavo [facility] Multi 40 [id number] Memoria 17:00:00 05:59:[address] 2019-08-13 2019-08-14 Outpatient nullFlavo MG Multi 40 [id number] Memoria 17:00:00 05:59:59 r Specialty 01 l [facility] 2019-08-13 2019-08-13 [facility] [id number] 11:00:00 23:59:59 Rachele L 2019-08-13 2019-08-13 Outpatient MHIE MHIE [id number] Memoria 11:00:00 11:00:00 01 l Golden 2019-08-02 2019-08-03 Outpt Diag nullFlavo [facility] [id number] Memoria 14:49:00 05:59:00 Services r Outpatient 00 l [facility] 2019-08-02 2019-08-03 Outpt Diag nullFlavo [facility] [id number] Memoria 14:49:00 05:59:00 Services r Outpatient 00 l [facility] 2019-08-02 2019-08-02 Outpatient EROS KnightOIP OIP [id number] 08:49:00 23:59:00 Rachele L 00 2019-07-16 2019-07-17 Outpatient nullFlavo MG Multi 40 [id number] Memoria 15:20:00 05:59:59 r Specialty 00 l [facility] 2019-07-16 2019-07-17 Outpatient nullFlavo MG Multi 40 [id number] Memoria 15:20:00 05:59:59 r Specialty 00 l [facility] 2019-07-16 2019-07-16 Outpatient Eugene [facility] [id number] 09:20:00 23:59:59 Rachele L 00 2019-07-16 2019-07-16 Outpatient MHIE MHIE [id number] Memoria 09:20:00 09:20:00 00 [facility] 2018-04-27 2018-04-27 Outpatient JORDAN LOWERY MDA [facility] [id number] 10:30:01 10:30:01 JEANINE tidwell Results Test Description Test Time Test Comments Results Result Comments Source CARDIAC ENZYMES 2022-01-07 19:47:00 Test Item Value Reference Range Interpretation Comme nts HS Troponin I (test code = HS Troponin I) 9 [facility] [id number] 19:47:00 Test Item Value Reference Range Interpretation Comments HS Troponin I (test code = HS Troponin 9 I) Roslyn RomeCARDIAC [id number] 19:47:00 Test Item Value Reference Range Interpretation Comments HS Troponin I (test code = HS Troponin 9 I) Roslyn Helm-CoV-2 (COVID-19) RNA [Presence] in Respiratory specimen by KAM with probe [id number] 23:36:23 Test Item Value Reference Range Interpretation Comments SARS-CoV-2 (COVID-19) RNA Not detected Not-Detected [Presence] in Respiratory specimen by KAM with probe detection (test code = 21505-0) Whether 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 BASIC METABOLIC [id number] 16:24:00 Test Item Value Reference Range Interpretation [...] = 10.0 mg/dL 8.0-10.5 N CA) PROTHROMBIN [id number] 16:12:00 Test Item Value Reference Range Interpretation [...] (to prevent recurrent infar ct). CBC W/AUTO [id number] 16:05:00 Test Item Value Reference Range Interpretation [...] (test code NO = MDIFF) CBC W/AUTO [id number] 16:02:00 Test Item Value Reference Range Interpretation [...] code = MDIFF) - XR CHEST 1 [id number] 16:30:00 [facility] AUBRIE DEL TORO : 1940 Sex: F FAX: Eagle Sexton MD [phone] [place]: St: REG FAX: Ysabel Santacruz NP [phone] ----- Name: AUBRIE DEL TORO [facility] : 1940 Age/S: 80/F [address] [place] [address] Unit #: [id number] Loc: [place] [address] Phys: Ysabel Santacruz NP Acct: [id number] Dis Date: Status: REG [facility] [place] PHONE #: [phone] Exam Date: 10/29/2020 1514 FAX #: [phone] Reason: post watchman EXAMS: CPT CODE: [id number] XR CHEST 1 V 37944 EXAM: XR CHEST 1 VIEW DATE: 10/29/2020 [...] changes are seen involving the aorta. SL: [id number] at 1630 Reported and signed by: Petra Rivera D.O. 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 - XR CHEST 2 [id number] 14:55:00 [facility] AUBRIE DEL TORO : 1940 Sex: F FAX: Eagle Sexton MD [phone] [place]: St: PRE Name: AUBRIE DEL TORO [facility] : 1940 Age/S: 80/F [address] [place] [address] Unit #: [id number] Loc: [place] [address] Phys: Eagle Osborn MD Acct: [id number] Dis Date: Status: PRE SDC PHONE #: [phone] Exam Date: 10/27/2020 1424 FAX #: [phone] Reason: PRE-OP WATCHMAN EXAMS: CPT CODE: [id number] XR CHEST 2 V 63639 EXAM: PA and lateral chest. EXAM DATE: October 27, 2020 CLINICAL HISTORY: PRE-OP WATCHMAN COMPARISON: None Heart is prominent but difficult to assess secondary to moderate left-sided pleural effusion. The right lung is un remarkable.. The left upper lung is unremarkable. Orthopedic hardware noted in the right proximal humerus. Surgical clips identified in the left axillary region. IMPRESSION: Moderate left-sided pleuraleffusion. at 9693 Reportedand signed by: Jesi Garcia M.D. CC: Eagle Osborn MD Technologist: RT Suad(Lela) Trnscrd Date/Time/By: 10/27/2020 (9196) : By: Kenneth Orig Print D/T: S: 10/27/2020 (3330) PAGE 1 Signed ReportBASIC METABOLIC PANEL 2020-10-27 [...] code = 9.3 mg/dL 8.0-10.5 N CA) [id number] 14:35:00 Test Item Value Reference Range Interpretation Comments PREALBUMIN (test code = PREALB) 18.9 mg/dL 16.0-40.0 N PROTHROMBIN [id number] 14:34:00 Test Item Value Reference Range Interpretation [...] prevent systemic emboli sm), Valvular heart disease, Atria l Fibrillation, Bileaflet mecha nical valve in aortic position.2. Mec hanical prosthetic valv es (high risk), 2. 5 - 3.5 Presence of Lup us Anticoagulant o r Antiphospholipi d Antibodies, Pre vention of systemic emb olism - Acute Myocardia l Infarction (to prevent recurrent infar ct). CBC W/AUTO [id number] 14:19:00 Test Item Value Reference Range Interpretation [...] REQUIRED (test code = MDIFF) CBC W/AUTO [id number] 14:19:00 Test Item Value Reference Range Interpretation [...] (test code NO = MDIFF) BASIC METABOLIC [id number] 07:01:00 Test Item Value Reference Range Interpretation [...] BUN) ANALYSIS.C RITICAL VALUE CALLED TO ANDRÉS BRAN/MARGARET GUERRAREAD BACK & CONFIRMED? YBY Y.LAB.MAV 02/07 0701 GLOMERULAR FILTRATION 28.4 >60 Unit o f measure: RATE (test code = mL/min/1.7 3 GFR) [id number] Range:Healthy A dults >90 mL/min/1.73 m2 For Chronic Kid opal Disease: Stage II Mild Decrease i n GFR 60-90 Stage III Moderate Decrea se in GFR 30-59 Stage IV Severe Decrease in GFR 15-29 Stage V Kidney Failure <15 CREATININE (test code 1.73 mg/dL 0.55-1.30 H = CREAT) CALCIUM (test code = 8.2 mg/dL 8.2-10.1 N CA) HGB [id number] 05:43:00 Test Item Value Reference Range Interpretation Comments HEMOGLOBIN (test code = HGB) 9.0 g/dL 12-16 L HEMATOCRIT (test code = HCT) 27.7 % 37-47 L URINALYSIS [id number] 14:52:00 Test Item Value Reference Range Interpretation [...] FEW /HPF NONE = BACU) COMPREHENSIVE METABOLIC [id number] 13:30:00 Test Item Value Reference Range Interpretation [...] RATE (test code = GFR) mL/mi n/1.73 u0Tqlmfiftw Range:Healthy Adults >90 mL/min/1.73 m2 For Chronic Kidney Disease: Stage II Mild Decrease i n GFR 60-90 Stag e III Moderate Decrease in GFR 30-59 Stage IV Severe Decrease [...] N TOTAL (test code = ALKP) PROTHROMBIN [id number] 13:30:00 Test Item Value Reference Range Interpretation [...] BLOOD, PT every other day NTHROMBOPLASTIN TIME [id number] 13:30:00 Test Item Value Reference Range Interpretation Comments PTT ACTIVATED (test code = APTT) 34.3 secs 24.9-37.0 N IS PATIENT ON ANTICOAGULANTS ? YLIST ANTICOAGULANT/ANTI PLT MEDICATION : AspirinHas Lab been notified if Patient is on Heparin Drip? NOIf Yes, order CBC, OCCULT BLOOD, PT every other day NCBC W/AUTO [id number] 13:12:00 Test Item Value Reference Range Interpretation [...] 0 % 0-0 N code = NRBC) Notes Date/Time Note Provider Source 2020-12-24 12:57:00-00:00 [id number] [place] [address] PATIENT NAME: AUBRIE DEL TORO ADMIT DATE: 0 11/26/20 ACCOUNT NO: [id number] ROOM NO: AGE: 80 REPORT TYPE: eTRANSESOPHAGEAL ECHO REPORT SEX: F ADMITTING PHYSICIAN: ATTENDING PHYSICIAN:Eagle Osborn MD *[place] [address] Transesophageal Echocardiogram for Riley Patient: Aubrie Del Toro Study Date: 11/26/2020 BP: Location: [facility] URN: [id number] 21 : 1940 Age: 80 Height: 66 in / 167.6 cm Gender: F Weight: 219 .5 lb / 99.8 kg BMI/BSA: 35.5 kg/m 2 / 2.2 m 2 *Ordering Physician: * Eagle Osborn *Interpreting Physician: * Anuarg Guillermo MD *Reinforcing Steel Erector: * So Dudley Indications: Post Watchman. Study data: Transesophageal Echocardiogram for Jonah malone. Consent: The risks, benefits, and alternatives to the procedu re and sedation were explained to the patient and informed consent wa s obtained. Procedure: Initial setup: The patient was brought to the [facility] in the fasting state.Intravenous access was obtained. Surface E CG leads, blood pressure measurements, and pulse oximetric signals were m onitored. Sedation. Deep sedation was administered by anesthesiology petrona garvey. Transesophageal echocardiography was performed. A transesophagea l probe was inserted by the anesthesiologist. Image quality was good. PandoDaily 2D and 3D. Location: Procedure room. Patient status: Outpat [facility]. Patient room number: CV Prep. Study status: Routine. Study co mpletion: The patient tolerated the procedure well. There were no complications. Rhythm: Normal sinus rhythm. PATIENT NAME: AUBRIE DEL TORO ACCOUNT #: [id number] Findings Left ventricle: The cavity size is normal. Wall thickness is normal. Systolic function is normal. The estimated eject ion fraction is 55-60%. Wall motion is normal; there are no regional wal l motion abnormalities. Left atrium: The atrium is mildly dilated. Post Watchman: There is no evidence of residual flow around the Watchman oc cluder device. Pericardium: A prominent pericardial fat pad is present. A trivial pericardial effusion is identified. Conclusions Summary: 1. Left ventricle: The cavity size is normal. Wa ll thickness is normal. Systolic function is normal. The estimated ejec tion fraction is 55-60%. Wall motion is normal; there are no reg ional wall motion abnormalities. 2. Left atrium: The atrium is mildly dilated. 3. Pericardium, extracardiac: A trivial pericard ial effusion is identified. Prepared and electronically signed by Anurag Guillermo MD 12/24/2020 12:57 Electronically Signed by Eagle Osborn MD on at 1257 PATIENT NAME: AUBRIE DEL TORO ACCOUNT #: [id number] 2020-10-29 17:00:00-00:00 [id number] [place] [address] PATIENT NAME: AUBRIE DEL TORO ADMIT DATE: 10/29/20 ACCOUNT NO: [id number] [facility] 80 REPORT TYPE: eECHOCARDIOGRAM REPORT SEX: F ADMITTING PHYSICIAN:Eagle Osborn MD ATTENDING PHYSICIAN:Eagle Osborn MD *[place] [address] Limited Transthoracic Echocardiogram Patient: Aubrie Del Toro Study Date: 10/29/2020 BP: 146 / 63 Location: [facility] URN: [id number] 88 : 1940 Age: 80 Height: 66 in / 167.6 cm Gender: F Weight: 223 .5 lb / 101.6 kg BMI/BSA: 36.2 kg/m 2 / 2.22 m 2 *Ordering Physician: * Ysabel Santacruz NP *Interpreting Physician: * Philomena Joseph MD *Reinforcing Steel Erector: * Becka Foreman Indications: POST WATC. Study data: Transthoracic echocardiogram, limite d study. Procedure: Transthoracic echocardiography was performed. Im age quality was adequate. Limited 2D and limited spectral Dopple r. Location: Bedside. Patient status: Inpatient. Patient room number: CCL. Study status: Routine. Findings Left ventricle: The cavity size is normal. Wall thickness is normal. Systolic function is normal. The estimated eject ion fraction is 55-60%. Wall motion is normal; there are no regional wal l motion abnormalities. Left atrium: The atrium is mildly dilated. Pericardium: A prominent pericardial fat pad is present. A trivial PATIENT NAME: AUBRIE DEL TORO ACCOUNT #: [id number] pericardial effusion is identified. Measurements Left ventricle Value Ref ADELFO, LAX 4.1 cm 3.8 - 5.2 ESD, LAX 3.0 cm 2.2 - 3.5 ESD/bsa, LAX 1.3 cm/m 2 1.3 - 2.1 FS, LAX 28 % 27 - 45 ESD/bsa major ax, A4C 3.0 cm/m 2 --------- ADELFO/bsa minor ax, A4C 3.0 cm/m 2 --------- ADELFO major ax, A2C 8.0 cm --------- ADELFO/bsa major ax, A2C 3.6 cm/m 2 --------- PW, ED 1.0 cm 0.6 - 0.9 IVS/PW, ED 0.99 --------- EF 54 % 54 - 74 EF, SMM Teich. 62 % >=55 LVOT Value Ref Diam, S 1.99 cm --------- Area 3.1 cm 2 --------- Ventricular septum Value Ref IVS, ED 1.0 cm 0.6 - 0.9 Right ventricle Value Ref ADELFO, LAX 2.6 cm --------- Left atrium Value Ref Vol/bsa, ES, 1-p A4C 39 ml/m 2 11 - 40 Vol/bsa, ES, A/L 41 ml/m 2 16 - 34 AP dim, ES MM 4.5 cm 2.7 - 3.8 LA/Ao root ratio, MM 1.48 --------- Aortic valve Value Ref Leaflet sep, MM 1.88 cm --------- Mitral valve Value Ref E-septal separation 1.0 cm --------- E-F slope 0.09 m/sec --------- Aortic root Value Ref Root diam, ED MM 3.02 cm --------- Conclusions Summary: 1. Left ventricle: The cavity size is normal. Wa ll thickness is normal. Systolic function is normal. The estimated ejec tion fraction is 55-60%. Wall motion is normal; there are no reg ional wall motion abnormalities. PATIENT NAME: AUBRIE DEL TORO ACCOUNT #: [id number] 2. Left atrium: The atrium is mildly dilated. 3. Pericardium, extracardiac: A trivial pericard ial effusion is identified. Prepared and electronically signed by Philomena Joseph MD 10/29/2020 17:00 Electronically Signed by Philomena Joseph MD on 0 10/29/20 at 1700 PATIENT NAME: AUBRIE DEL TORO ACCOUNT #: [id number] 2020-10-29 16:36:00-00:00 [facility]AC[facility] Discharge Summary REPORT#:[id number] REPORT STATUS: Signed DATE:10/29/20 TIME: 1636 PATIENT: AUBRIE DEL TORO UNIT #: [id number] ROOM/BED: [place] [address] : [birth year] AGE: 80 SEX: F ATTEND: Narinder Osborn MD ADM AUTHOR: Stephan Ferguson * ALL edits or amendments must be made on the [employer]/computer document * General Information Discharge date: 10/29/20 Hospital course: Aubrie Del Toro is an 80-year-old female with a past medical history that is significant for paroxysmal atrial fibrillation, hypertension, hyperlipidemia, sleep apnea, GERD, lymphedema, who was admitted for elective watchman device implantation. Patient is not a good candidate fo r long-term anticoagulation therapy secondary to history of falls, p atient however may tolerate short-term anticoagulation therapy. Pat ient's Doroteo vasc score calculated as 4 and has bled score of 3. Patient therefore was admitted for e lective watchman device implantation with the placement of a 31 mm watch man flex closure device. Patient tolerated the proced ure without any postoperative complications. Postop chest x-ray showed cardiomegaly with mild centra l venous congestion. Postop echo showed a trivial pericardial effusion. Kasey ent has been cleared by Dr. Osborn for discharge. Post w atchman discharge instructions given to the patient who verbalized understanding. Patient is to report any chest pain shortness of breath lightness or dizziness to the cardiologis t and Call 911 with any emergency. Patient stable to be discharged to [facility] for outpatient follow-up. Med Rec PCP PCP: PCP: Eddie Solis MD Med Rec Discharge meds: Stop taking the following medications: CARVEDILOL (COREG) 12.5 MG TAB 25 MILLIGRAM ORAL TWICE DAILY. Continue taking these medications: LEVOTHYROXINE (SYNTHROID) 125 MCG TAB 125 MICROGRAM ORAL DAILY. FUROSEMIDE (LASIX) 40 MG TAB 40 MILLIGRAM ORAL DAILY. PREGABALIN (LYRICA) 150 MG CAP 150 MILLIGRAM ORAL TWICE DAILY. OXYBUTYNIN XL (DITROPAN XL) 10 MG TAB.SR.24H 15 MILLIGRAM ORAL BEDTIME. RABEprazole DR (ACIPHEX) 20 MG TAB.DR 20 MILLIGRAM ORAL DAILY. [ULORIC] 80 MG 1 TABLET ORAL DAILY. LIOTHYRONINE (CYTOMEL) 5 MCG TAB 5 MICROGRAM ORAL DAILY. MAGNESIUM OXIDE (MAGNESIUM OXIDE) 500 MG TAB 500 MILLIGRAM ORAL TWICE DAILY. DOXAZOSIN (CARDURA) 4 MG TAB 4 MILLIGRAM ORAL TWICE DAILY. ROSUVASTATIN (CRESTOR) 5 MG TAB 5 MILLIGRAM ORAL DAILY. TELMISARTAN (MICARDIS) 80 MG TAB 80 MILLIGRAM ORAL DAILY. METOPROLOL TARTRATE (LOPRESSOR) 50 MG TAB 50 MILLIGRAM ORAL TWICE DAILY. URSODIOL (ACTIGALL) 300 MG CAP 300 MILLIGRAM ORAL TWICE DAILY. CRANBERRY EXTRACT (CRANBERRY EXTRACT) 300 MG TAB 300 MILLIGRAM ORAL TWICE DAILY. ZINC GLUCONATE (ZINC GLUCONATE) 100 MG TAB 100 MILLIGRAM ORAL DAILY. [QUERCETIN] 500 MILLIGRAM ORAL DAILY. CHOLECALCIFEROL (VITAMIN D3) (VITAMIN D3) 1,000 UNIT TAB 1,000 UNITS ORAL BEDTIME. IRON (IRON) 18 MG TAB 18 MILLIGRAM ORAL TWICE DAILY. RIVAROXABAN (XARELTO) 20 MG TAB 20 MILLIGRAM ORAL DAILY. diphenhydrAMINE (BENADRYL) 25 MG CAP 25 MILLIGRAM ORAL BEDTIME. Objective VS/I O Last Documented: Result Date Time Pulse Ox 76 10/29 1345 B/P 131/59 10/29 1345 O2 Delivery Simple mask 10/29 1345 O2 Flow Rate 7 10/29 1345 Temp 36.4 10/29 1345 Pulse 76 10/29 1345 Resp 18 10/29 1345 PATIENT WEIGHT: Weight (lb): 224 Weight (oz): 13.94 Weight (kg): 102.000 General appearance: alert, awake, oriented Cardiovascular: regular rate rhythm, normal hear t sounds Respiratory: clear to auscultation, no distress, no tenderness Extremities: moves all, no edema-all extremities Assess/Plan Problem List/A P: 1. Paroxysmal atrial fibrillation Free Text A P: -Paroxysmal Atrial fibrillation Patient with paroxysmal atrial fibrillation, phil ds vasc score of 4 and intolerance to long-term anticoagulation due to high risk of recurrent falls. Patient is s/p successful implantation of a 31 m m watchman device in the left atrial appendage Tolerated the procedure without any postop compl ications No thrombus was identified in the pre-and Intra- Op SENG Patient did well and is currently hemodynamicall y stable. Right groin suture removed by this SOLE BUFFER. No infect ion, bleeding, or hematoma. Dermabond applied and intact. Post watchman discharge instructions provided to the patient Patient is to follow-up with her PCP and cardiol ogist in 1 to 2 weeks Also follow-up with gold reclaimer for the 45-day SENG after which follow-up with Dr. Osborn for anticoagulation recommendation Patient to continue xarelto until the 45-day SENG If the 45 day SENG shows a well-seated watchman d evice with no thrombus/leaks then will be discontinued an d patient will be initiated on aspirin and Plavix at that time Duration of aspirin is lifelong Duration of Plavix is 6 months post 45 day SENG Post Watchman discharge instructions /handout gi lisa to the patient who verbalized understanding of the instructions giv en and patient is notified to report any complaints of chest pain, shortness o f breath lightheadedness or dizziness to her gold reclaimer. Care Time Spent: The total pika-oc-bofq or floor/unit time for th is encounter was [] minutes Discharge Instructions PCP )( Discharge to: Home/Self Care Discharge Instructions Additional Discharge Routines: PCP Follow-Up, At tending Follow-Up, [facility] Follow-Up )( Diet: Resume Home Diet/Feeds, Cardiac Follow-up Appointments PCP follow up: PCP: Eddie Solis MD PCP follow up timeframe: In 1-2 weeks Attending Physician: Attending Physician: Eagle Osborn MD Consulting provider 1: Provider 1: Eagle Osborn MD Specialty: CardiologyInterventional Consult follow up timeframe: In 1-2 weeks Electronically Signed by Stephan Ferguson on 0 11/06/20 at 1230 RPT #:[id number] END OF REPORT 2020-10-29 16:36:00-00:00 [facility] ([facility]) Discharge Summary REPORT#:[id number] REPORT STATUS: Signed DATE:10/29/20 TIME: 163 PATIENT: AUBRIE DEL TORO UNIT #: [id number] ROOM/BED: [place] [address] : 39 AGE: 80 SEX: F ATTEND: Narinder Osborn MD ADM AUTHOR: tSephan Ferguson * ALL edits or amendments must be made on the [employer]/computer document * General Information Discharge date: 10/29/20 Hospital course: Aubrie Del Toro is an 80-year-old female with a past medical history that is significant for paroxysmal atrial fibrillation, hypertension, hyperlipidemia, sleep apnea, GERD, lymphedema, who was admitted for elective watchman device implantation. Patient is not a good candidate fo r long-term anticoagulation therapy secondary to history of falls, p atient however may tolerate short-term anticoagulation therapy. Pat ient's Doroteo vasc score calculated as 4 and has bled score of 3. Patient therefore was admitted for e lective watchman device implantation with the placement of a 31 mm watch man flex closure device. Patient tolerated the proced ure without any postoperative complications. Postop chest x-ray showed cardiomegaly with mild centra l venous congestion. Postop echo showed a trivial pericardial effusion. Kasey ent has been cleared by Dr. Osborn for discharge. Post w atchman discharge instructions given to the patient who verbalized understanding. Patient is to report any chest pain shortness of breath lightness or dizziness to the cardiologis t and Call 911 with any emergency. Patient stable to be discharged to [facility] for outpatient follow-up. Med Rec PCP PCP: PCP: Eddie Solis MD Med Rec Discharge meds: Stop taking the following medications: CARVEDILOL (COREG) 12.5 MG TAB 25 MILLIGRAM ORAL TWICE DAILY. Continue taking these medications: LEVOTHYROXINE (SYNTHROID) 125 MCG TAB 125 MICROGRAM ORAL DAILY. FUROSEMIDE (LASIX) 40 MG TAB 40 MILLIGRAM ORAL DAILY. PREGABALIN (LYRICA) 150 MG CAP 150 MILLIGRAM ORAL TWICE DAILY. OXYBUTYNIN XL (DITROPAN XL) 10 MG TAB.SR.24H 15 MILLIGRAM ORAL BEDTIME. RABEprazole DR (ACIPHEX) 20 MG TAB.DR 20 MILLIGRAM ORAL DAILY. [ULORIC] 80 MG 1 TABLET ORAL DAILY. LIOTHYRONINE (CYTOMEL) 5 MCG TAB 5 MICROGRAM ORAL DAILY. MAGNESIUM OXIDE (MAGNESIUM OXIDE) 500 MG TAB 500 MILLIGRAM ORAL TWICE DAILY. DOXAZOSIN (CARDURA) 4 MG TAB 4 MILLIGRAM ORAL TWICE DAILY. ROSUVASTATIN (CRESTOR) 5 MG TAB 5 MILLIGRAM ORAL DAILY. TELMISARTAN (MICARDIS) 80 MG TAB 80 MILLIGRAM ORAL DAILY. METOPROLOL TARTRATE (LOPRESSOR) 50 MG TAB 50 MILLIGRAM ORAL TWICE DAILY. URSODIOL (ACTIGALL) 300 MG CAP 300 MILLIGRAM ORAL TWICE DAILY. CRANBERRY EXTRACT (CRANBERRY EXTRACT) 300 MG TAB 300 MILLIGRAM ORAL TWICE DAILY. ZINC GLUCONATE (ZINC GLUCONATE) 100 MG TAB 100 MILLIGRAM ORAL DAILY. [QUERCETIN] 500 MILLIGRAM ORAL DAILY. CHOLECALCIFEROL (VITAMIN D3) (VITAMIN D3) 1,000 UNIT TAB 1,000 UNITS ORAL BEDTIME. IRON (IRON) 18 MG TAB 18 MILLIGRAM ORAL TWICE DAILY. RIVAROXABAN (XARELTO) 20 MG TAB 20 MILLIGRAM ORAL DAILY. diphenhydrAMINE (BENADRYL) 25 MG CAP 25 MILLIGRAM ORAL BEDTIME. Objective VS/I O Last Documented: Result Date Time Pulse Ox 76 10/29 1345 B/P 131/59 10/29 134 O2 Delivery Simple mask 10/29 134 O2 Flow Rate 7 10/29 134 Temp 36.4 10/29 1345 Pulse 76 10/29 1345 Resp 18 10/29 1345 PATIENT WEIGHT: Weight (lb): 224 Weight (oz): 13.94 Weight (kg): 102.000 General appearance: alert, awake, oriented Cardiovascular: regular rate rhythm, normal hear t sounds Respiratory: clear to auscultation, no distress, no tenderness Extremities: moves all, no edema-all extremities Assess/Plan Problem List/A P: 1. Paroxysmal atrial fibrillation Free Text A P: -Paroxysmal Atrial fibrillation Patient with paroxysmal atrial fibrillation, phil ds vasc score of 4 and intolerance to long-term anticoagulation due to high risk of recurrent falls. Patient is s/p successful implantation of a 31 m m watchman device in the left atrial appendage Tolerated the procedure without any postop compl ications No thrombus was identified in the pre-and Intra- Op SENG Patient did well and is currently hemodynamicall y stable. Right groin suture removed by this SOLE BUFFER. No infect ion, bleeding, or hematoma. Dermabond applied and intact. Post watchman discharge instructions provided to the patient Patient is to follow-up with her PCP and cardiol ogist in 1 to 2 weeks Also follow-up with gold reclaimer for the 45-day SENG after which follow-up with Dr. Osborn for anticoagulation recommendation Patient to continue xarelto until the 45-day SENG If the 45 day SENG shows a well-seated watchman d evice with no thrombus/leaks then will be discontinued an d patient will be initiated on aspirin and Plavix at that time Duration of aspirin is lifelong Duration of Plavix is 6 months post 45 day SENG Post Watchman discharge instructions /handout gi lisa to the patient who verbalized understanding of the instructions giv en and patient is notified to report any complaints of chest pain, shortness o f breath lightheadedness or dizziness to her gold reclaimer. Care Time Spent: The total tdad-pj-umgu or floor/unit time for th is encounter was [] minutes Discharge Instructions PCP )( Discharge to: Home/Self Care Discharge Instructions Additional Discharge Routines: PCP Follow-Up, At tending Follow-Up, [facility] Follow-Up )( Diet: Resume Home Diet/Feeds, Cardiac Follow-up Appointments PCP follow up: PCP: Eddie Solis MD PCP follow up timeframe: In 1-2 weeks Attending Physician: Attending Physician: Eagle Osborn MD Consulting provider 1: Provider 1: Eagle Osborn MD Specialty: CardiologyInterventional Consult follow up timeframe: In 1-2 weeks Electronically Signed by Stephan Ferguson on 0 11/06/20 at 1230 Electronically Signed by Eagle Osborn MD on 07/21 at 0952 [facility] #:[id number] END OF REPORT 2020-10-29 13:53:00-00:00 [id number] [address] PATIENT NAME: AUBRIE DEL TORO ADMIT DATE: 0 10/29/20 ACCOUNT NO: [id number] ROOM NO: [place] AGE: 80 REPORT TYPE: CARDIAC CATHETERIZATION REPORT SEX: F ADMITTING PHYSICIAN:Eagle Osborn MD ATTENDING PHYSICIAN:Eagle Osborn MD PROCEDURE DATE: 10/29/2020 OPERATION PERFORMED: Left atrial appendage closu re using 31-mm Watchman FLX closure device. INDICATIONS: Atrial fibrillation with high risk for stroke and multiple falls and increased risk for falling. ACCESS: Right femoral vein, 16-Urdu closed wit h ueaqlc-ja-qqdtb suture. PRIMARY OPERATORS: Eagle Osborn MD FORESTRY FIRE AID: Philomena Joseph MD COMPLICATIONS: None. BLEEDING: Less than 20 mL. DESCRIPTION OF PROCEDURE: After risks, benefits, and alternatives were explained, the patient agreed to proceed and sig aileen the informed consent. The patient was brought into the cardiac catheteriza tion laboratory, prepped and draped in usual sterile fashion. General anesthe andrew was applied. A SENG was performed before procedure. Subsequently, I took a micropuncture kit and accessed the right femoral vein under the ultras ound guidance. A 6-Urdu sheath was placed and then u pgraded to a 16-Urdu Cook sheath. Subsequently, I took the SL1 sheath into the SVC over the wire w ith a [place] needle inside descended under fluoroscopy and SENG guidance int o the interatrial septum and then in the low mid position. Transseptal punctu re was done successfully. The SL1 sheath was advanced to the left atrium. LA p ressure was measured at 23 mmHg. I took ProTrack wire in the left atrium an d exchanged for the Watchman double curve sheath and took a pigtail t hrough the Watchman sheath into the LA appendage and advanced the W atchman sheath into the appendage over the pigtail. Angiogram was done and 31-mm closure device was determined to be suitable for closure. The device was prepped in the usual rosemary rile fashion, introduced it through the Watchman sheath under a positive flush after a good bleed back from the sheath. Then the device was deployed under f luoroscopy and SENG guidance without complications. PASS criteria were checke d and were met. Device was released in position. Then sheath was removed an d ejbajs-dg-ppvow suture was applied with good hemostasis. The patient was se nt to recovery in stable condition. CONCLUSION: Successful left atrial appendage closure using a 31-mm Watchman FLX closure device. PATIENT NAME: AUBRIE DEL TORO ACCOUNT #: [id number] Dictated By: Eagle Osborn MD WT: CATH:RAFAEL/DEBRA/ANDREY Conf#: [id number]/DID#: [id number] Authenticated by Eagle Osborn MD On 11/03/2020 08:14:10 AM Electronically Signed by Eagle Osborn MD on at 0814 PATIENT NAME: AUBRIE DEL TORO ACCOUNT #: [id number] 2020-10-29 13:49:00-00:00 [id number] [place] [address] PATIENT NAME: AUBRIE DEL TORO ADMIT DATE: 10/29/20 ACCOUNT NO: [id number] ROOM NO: [facility] AGE: 80 REPORT TYPE: eELECTROCARDIOGRAM REPORT SEX: F ADMITTING PHYSICIAN:Eagle Osborn MD ATTENDING PHYSICIAN:Eagle Osborn MD Order: [id number] Test Reason : S/P WATCHMAN Test Date/Time Stamp: TueOct 29 2020 13:49:25 Blood Pressure : / mmHG Vent. Rate : 055 BPM Atrial Rate : 055 BPM P-R Int : 216 ms QRS Dur : 096 ms QT Int : 480 ms P-R-T Axes : 056 030 033 degree s QTc Int : 459 ms Sinus bradycardia with 1st degree AV block Low voltage QRS Nonspecific T wave abnormality Abnormal ECG When compared with ECG of 27-OCT-2020 13:55, Significant changes have occurred Confirmed by MAGALIE FLOR, KENDELL ([id number]) on 10/01 5:31:57 PM Referred By: Eagle Osborn Confirmed by:MARY RIVERA MD at 1732 PATIENT NAME: AUBRIE DEL TORO ACCOUNT #: [id number] 2020-10-27 16:23:00-00:00 [facility] ([facility]) Consultation Note - Brief REPORT#:[id number] REPORT STATUS: Signed DATE:10/27/20 TIME: 1623 PATIENT: AUBRIE DEL TORO UNIT #: [id number] ROOM/BED: : 39 AGE: 80 SEX: F ATTEND: Narinder Osborn MD ADM AUTHOR: Ramirez Andrea MD * ALL edits or amendments must be made on the [employer]/computer document * History of Present Illness HPI Requesting Clinician: Eagle Osborn MD Reason for consult: Watchman shared decision Chief complaint: Patient presented for elective outpatien t preop evaluation and watchman shared decision History of present illness: This 80-year-old female with past medical histor y of A. fib, on Xarelto, lymphedema, hypertension, hyperlipidemia, sleep apnea, GERD, here for preop evaluation for watchman insertion and shared dec ision making for watchman. Patient currently denies any complaints. No hist ory of falls or GI bleed. History - Adult longitudinal Additional medical history: A. 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, bilateral carpal tunnel surgery, left knee replacement, right apryl ulder replacement, right knee replacement Additional family history: Not contributory Alcohol use: Denies EtOH use Drug use: Denies recreational drugs Smoking status: Smoking status for patients 13 years old or old er: Never Smoker Medications: Home Medications: Medication Dose/Rte/Freq Days Qty Entered Last Max Daily Dose Reviewed CARVEDILOL (COREG) 25 MG PO BID 02/11/12 Strength: 12.5 MG TAB 1128 LEVOTHYROXINE 125 MCG PO DAILY 02/11/12 (SYNTHROID) 1129 Strength: 125 MCG TAB FUROSEMIDE (LASIX) 40 MG PO DAILY 02/11/12 Strength: 40 MG TAB 1129 PREGABALIN (LYRICA) 150 MG PO BID 02/11/12 Strength: 150 MG CAP 1130 OXYBUTYNIN XL 15 MG PO BEDTIME 02/11/12 (DITROPAN XL) 1131 Strength: 10 MG TAB.SR.24H RABEprazole [address] (ACIPHEX) 20 MG PO DAILY 2 Strength: 20 MG TAB.DR 1133 [ULORIC] 1 TAB PO DAILY 01/24/19 Strength: 80 MG 1139 LIOTHYRONINE (CYTOMEL) 5 MCG PO DAILY 01/24/19 Strength: 5 MCG TAB 1139 MAGNESIUM OXIDE 500 MG PO BID 01/24/19 Strength: 500 MG TAB 1140 DOXAZOSIN (CARDURA) 4 MG PO BID 01/24/19 Strength: 4 MG TAB 1140 ROSUVASTATIN (CRESTOR) 5 MG PO DAILY 10/27/20 Strength: 5 MG TAB 1356 TELMISARTAN (MICARDIS) 80 MG PO DAILY 10/27/20 Strength: 80 MG TAB 1358 METOPROLOL TARTRATE 50 MG PO BID 10/27/20 (LOPRESSOR) 1401 Strength: 50 MG TAB URSODIOL (ACTIGALL) 300 MG PO BID 10/27/20 Strength: 300 MG CAP 1401 CRANBERRY EXTRACT 300 MG PO BID 10/27/20 Strength: 300 MG TAB 1403 ZINC GLUCONATE 100 MG PO DAILY 10/27/20 Strength: 100 MG TAB 1403 [QUERCETIN] 500 MG PO DAILY 10/27/20 Strength: 1404 CHOLECALCIFEROL 1,000 UNITS PO 10/27/20 (VITAMIN D3) BEDTIME 1405 (VITAMIN D3) Strength: 1,000 UNIT TAB IRON 18 MG PO TID 10/27/20 Strength: 18 MG TAB 1406 RIVAROXABAN (XARELTO) 20 MG PO DAILY 10/27/20 Strength: 20 MG TAB 1407 diphenhydrAMINE 25 MG PO BEDTIME 10/27/20 (BENADRYL) 1407 Strength: 25 MG CAP Current Hospital Medications: Cardiovascular Drugs Sig/Chung Start time Last Medication Dose Route Stop Time Status Admin Lidocaine HCl 2 ML PREOP ONCALL 10/27 1445 AC (LIDOCAINE HCL/PF) LOCAL 11/26 2359 Lidocaine HCl 2 ML PREOP ONCALL 10/27 1445 AC (LIDOCAINE HCL/PF) LOCAL 11/26 2359 Central Nervous System Agents Sig/Chung Start time Last Medication Dose Route Stop Time Status Admin Acetaminophen 1,000 MG PREOP ONCALL 10/27 1445 CKD (TYLENOL EXTRA PO 11/26 2358 STRENGTH) Electrolytic, Caloric, And Rj Sig/Chung Start time Last Medication Dose Route Stop Time Status Admin Lactated Ringer's 1,000 ML PREOP ONCALL 10/27 1 445 AC (LACTATED RINGERS) IV 11/26 2359 Sodium Chloride 500 ML PREOP ONCALL 10/27 1445 AC (SODIUM CHLORIDE IV 11/26 2358 0.9%) Sodium Chloride 500 ML PREOP ONCALL 10/27 1445 AC (SODIUM CHLORIDE IV 11/26 2358 0.9%) Sodium Chloride 1,000 ML PREOP ONCALL 10/27 144 5 AC (SODIUM CHLORIDE IV 11/26 2358 0.9%) Sodium Chloride 5 ML ASDIR PRN 10/27 1445 AC (SODIUM CHLORIDE) IV 11/26 1444 Sodium Chloride 10 ML ASDIR PRN 10/27 1445 AC (SODIUM CHLORIDE) IV 11/26 1444 Sodium Chloride 250 ML ASDIR PRN 10/27 1445 AC (SODIUM CHLORIDE IV 11/26 1444 0.9%) Allergies: Coded Allergies: No Known Allergies (10/27/20) Brief Consult Note Physical Exam Vitals: 198/74, 46, 18, 96.9, BMI 36.3 General appearance: alert, awake, oriented HEENT: mucosal membranes moist Cardiovascular: irregular rhythm Respiratory: clear to auscultation Abdomen: soft, non-tender, no rebound, no disten tion Neuro/REFUSE LABORER: alert, oriented X 3, normal speech Extremities: Bilat moves all, Bilat edema Findings/Data: Recent Impressions: RADIOLOGY - XR CHEST 2 V 10/27 1424 Report Impression - Status: SIGNED Entered: 10/27/2020 1458 IMPRESSION: Moderate left-sided pleural effusion . Impression By: León Encinas Laboratory Tests 10/27/20 1340: [Embedded Image Not Available] Free Text A P: 80-year-old female with past medical history of A. fib, on Xarelto, lymphedema, hypertension, hyperlipidemia, presenting for pre op evaluation and watchman shared decision making. [id number] vas score is 4 Adjusted stroke rate 4.8% Has bled score 3 Bleeding rate with 1 year OAC 5.8% [employer] questionnaire was done Patient meets criteria for watchman insertion Electronically Signed by Ramirez Andrea MD on 1 at 1632 RPT #:[id number] END OF REPORT 2020-10-27 13:55:00-00:00 [id number] [place] [address] PATIENT NAME: AUBRIE DEL TORO ADMIT DATE: ACCOUNT NO: [id number] ROOM NO: AGE: 80 REPORT TYPE: eELECTROCARDIOGRAM REPORT SEX: F ADMITTING PHYSICIAN: ATTENDING PHYSICIAN:Eagle Osborn MD Order: [id number] Test Reason : PRE-OP WATCHMAN Test Date/Time Stamp: TueOct 27 2020 13:55:59 Blood Pressure : / mmHG Vent. Rate : 051 BPM Atrial Rate : 051 BPM P-R Int : 174 ms QRS Dur : 094 ms QT Int : 470 ms P-R-T Axes : 032 071 023 degree s QTc Int : 433 ms Sinus bradycardia Nonspecific ST abnormality Abnormal ECG PRE_OP Confirmed by SANDRITA JEAN BAPTISTE MD ([id number]) on 10/28/19 21 2:46:09 PM Referred By: Eagle Osborn Confirmed by:SANDRITA KAHN MD at 1446 PATIENT NAME: AUBRIE DEL TORO ACCOUNT #: [id number] 2019-02-07 11:03:00-00:00 [facility] ([facility]) Clinical Note REPORT#:[id number] REPORT STATUS: Signed DATE:02/07/19 TIME: 1103 PATIENT: AUBRIE DEL TORO UNIT #: [id number] ROOM/BED: [address] : [address] AGE: 78 SEX: F ATTEND: Joyce Rankin MD ADM AUTHOR: Herbert Boyd MD * ALL edits or amendments must be made on the el uStudioronic/computer document * Clinical Note Note: [facility] Herbert cameron M.D. (cell text [phone]) Assessment/Plan 1.) Anemia of acute blood loss- .hGB 9.0, asympt omatic. 2.) S/p Right TKA- .acute pain control. Anticoag ulation as per Dr. Rankin. 3.) Hypertension CKDz3- .follow BP and hold Rxs if SBP<120. 4.) ZACHERY Hypothyroid Hx of Gout Hyperlipidemia- . continue on Rx. * OK for DISCHARGE per Internal Medicine. Prior Events/Overnight: Uneventful. Chief Complaint: No significant complaints. Objective Vital Signs: Date Time Temp Pulse Resp B/P B/P Pulse O2 O2 F low FiO2 Mean Ox Delivery Rate 02/07 1135 97.0 51 18 120/78 91.9 98 Nasal cannula 02/07 0810 100 Nasal 3.794794 32 cannula 02/07 0719 Nasal 3.192455 cannula 02/07 0658 96.4 56 18 130/66 87.2 99 Nasal cannula 02/07 0407 95.7 57 14 111/49 71 100 Nasal cannula 02/07 0018 95 Nasal 3.410307 32 cannula 02/06 2233 96.8 57 16 147/64 92 100 Nasal cannula 02/06 2128 Nasal cannula 02/06 2018 98 Nasal 3.866980 32 cannula 02/06 1926 96.4 59 18 142/61 88 100 Nasal cannula 02/06 1502 96.8 53 18 160/72 103 98 Nasal cannula 02/06 1221 Nasal 3.456366 cannula 02/06 1210 100 Nasal 3.945720 32 cannula 02/06 1210 97.7 53 14 178/72 104 100 Nasal cannula 02/06 1147 97.9 60 16 155/60 95 Nasal 3.632926 cannula 02/06 1145 Nasal 3.131496 cannula 02/06 1144 49 19 159/65 95 Nasal 3.870738 cannula Gen: Alert, oriented, in mild discomfort Neck: No Masses, No Thyromegaly- CV: Regular Rate Rhythm / Edema- no significant Resp: Clear To Ascultation / Normal Respiratory Effort ABD: NonTender / NonDistended MS/Skin: No Cyanosis / No no dules / +Ankle DF/PF / nl capillary refill of toes. Other: Labs/X-ray: Laboratory Tests: 02/07 0415 Chemistry Sodium (136 - 145 mmol/L) 140 Potassium (3.5 - 5.1 mmol/L) 4.5 Chloride (98 - 107 mmol/L) 102.0 Carbon Dioxide (21 - 32 mmol/L) 29.6 BUN (7 - 18 mg/dL) 62 *H Creatinine (0.55 - 1.30 mg/dL) 1.73 H Glomerular Filtr Rate (>60) 28.4 Glucose (70 - 110 mg/dL) 156 H Calcium (8.2 - 10.1 mg/dL) 8.2 Hematology Hgb (12 - 16 g/dL) 9.0 L Hct (37 - 47 %) 27.7 L Herbert Alamo M.D. at 1204 RPT #:[id number] END OF REPORT 2019-02-07 08:07:00-00:00 [facility] ([facility]) Discharge Summary REPORT#:[id number] REPORT STATUS: Signed DATE:02/07/19 TIME: 08 PATIENT: AUBRIE DEL TORO UNIT #: [id number] ROOM/BED: [address] : 39 AGE: 78 SEX: F ATTEND: Joyce Rankin MD ADM AUTHOR: Ailyn Lambert NP * ALL edits or amendments must be made on the el uStudioronic/computer document * PCP PCP Discharge to: home General Information Date of discharge: 02/07/19 Hospital course: Discharge Diagnosis: Right Knee Degenerative Dis ease Procedure: Right Knee Arthroplasty Hospital Course and Findings The patient underwent the pr ocedure without incident. Findings were significant for degenerative disease of the knee. The patien t was hemodynamically and medically monitored during the postoperative per iod. Anticoagulation was instituted for postoperative DVT prophylaxis. Th e patient was progressively able to tolerate PO pain med ications and the appropriate diet. Physical therapy was instituted, with a progressive ability to am bulate and perform exercises. The patient was eventually deemed stable and saf e for discharge. Despite factors which [facility], the patient fulfilled criteria for early discharge on postop day one, including control of pain, early mobilization with therapy, and a stable hemodyna taylor status. At discharge, the patient was comfortabl e, with a controlled pain level. There were no chest or abdominal symptoms present. Dis charge physical examination demonstrated stable vital signs and no acute dis tress. The patient had an intact wound with no signifi cant drainage, and no calf tenderness and a negative Kym s sign bilaterally. There were no neurolog ic or vascular deficits or changes from the preoperative state. Laboratory Tests: 02/07 415 Chemistry Sodium (136 - 145 mmol/L) 140 Potassium (3.5 - 5.1 mmol/L) 4.5 Chloride (98 - 107 mmol/L) 102.0 Carbon Dioxide (21 - 32 mmol/L) 29.6 BUN (7 - 18 mg/dL) 62 *H Creatinine (0.55 - 1.30 mg/dL) 1.73 H Glomerular Filtr Rate (>60) 28.4 Glucose (70 - 110 mg/dL) 156 H Calcium (8.2 - 10.1 mg/dL) 8.2 Hematology Hgb (12 - 16 g/dL) 9.0 L Hct (37 - 47 %) 27.7 L Vital Signs: Date Time Temp Pulse Resp B/P B/P Pulse O2 O2 F low FiO2 Mean Ox Delivery Rate 02/07 0719 Nasal 3.208301 cannula 02/07 0658 35.8 56 18 130/66 87.2 99 Nasal cannula 02/07 0407 35.4 57 14 111/49 71 100 Nasal cannula 02/07 0018 95 Nasal 3.427144 32 cannula 02/06 2233 36.0 57 16 147/64 92 100 Nasal cannula 02/06 2128 Nasal cannula 02/06 2018 98 Nasal 3.191024 32 cannula 02/06 1926 35.8 59 18 142/61 88 100 Nasal cannula 02/06 1502 36.0 53 18 160/72 103 98 Nasal cannula 02/06 1221 Nasal 3.379048 cannula 02/06 1210 100 Nasal 3.869193 32 cannula 02/06 1210 36.5 53 14 178/72 104 100 Nasal cannula 02/06 1147 36.6 60 16 155/60 95 Nasal 3.686237 cannula 02/06 1145 Nasal 3.492517 cannula 02/06 1144 49 19 159/65 95 Nasal 3.518646 cannula 02/06 1125 49 14 141/62 100 Simple 10.727966 mask 02/06 1123 Simple 10.276542 mask 02/06 1110 36.4 48 26 169/71 100 Simple 10.000 000 mask Disposition: Discharged to home Discharge Condition: Stable Instructions: Instruction sheet given to patient Activity: Ambulate with assistance, with weight- bearing as instructed in the hospital. Diet: As per preoperatively Prescriptions 1. Pain Medications: As per discharge prescription, with progressive weaning as pain decreases 2. Anticoagulation: As per discharge prescription, or PreOp anticoa gulant, as discussed with patient 3. Physical Therapy: Will undergo PT for gait training, mobilization , aywkc-cy-vjlomn, and strengthening. Patient was informed that they ne ed to arrange for therapy as quickly as possible. The imp ortance of early advancement of iysnj-cu-gihfoq with home exercises, and physical therapy was stresse d to the patient. Follow-up Appointment: Patient instructe d to arrange appointment for an office visit in 2 weeks Med Rec Med Rec Discharge meds: Continue taking these medications: Telmisartan/Hydrochlorothiazid (Micardis HCT 80/ 12.5 Mg Tab) 80 MG-12.5 MG TABLET 1 TABLET ORAL DAILY. CARVEDILOL (COREG) 12.5 MG TAB 12.5 MILLIGRAM ORAL DAILY. LEVOTHYROXINE (SYNTHROID) 100 MCG TAB 100 MICROGRAM ORAL DAILY. cloNIDine (CATAPRES) 0.2 MG TAB 0.2 MILLIGRAM ORAL AT BEDTIME FUROSEMIDE (LASIX) 20 MG TAB 20 MILLIGRAM ORAL DAILY. PREGABALIN (LYRICA) 150 MG CAP 150 MILLIGRAM ORAL TWICE DAILY. Oxybutynin Chloride (Ditropan XL) 15 MG TAB.OSM. 24 15 MILLIGRAM ORAL AT BEDTIME RABEprazole DR (ACIPHEX) 20 MG TAB.DR 20 MILLIGRAM ORAL DAILY. [ULORIC] 20 MG 1 TABLET ORAL DAILY. LIOTHYRONINE (CYTOMEL) 5 MCG TAB 5 MICROGRAM ORAL DAILY. traMADol (ULTRAM) 50 MG TAB 50 MILLIGRAM ORAL EVERY 6 HOURS NEEDED. as n eeded for PAIN Qty = 100 Instructions: TAKE 1-2 TABLETS BY MOUTH EVERY 6 HOURS NEED ED FOR PAIN POTASSIUM CHLORIDE ER (MICRO-K) 10 MEQ CAP.SA 10 MILLIEQUIVALENT ORAL DAILY. MAGNESIUM OXIDE (MAGNESIUM OXIDE) 500 MG TAB 500 MILLIGRAM ORAL DAILY. DOXAZOSIN (CARDURA) 4 MG TAB 4 MILLIGRAM ORAL BEDTIME. HYDROcodone/APAP (NORCO 10/325) 1 TAB TAB 1 TABLET ORAL EVERY 6 HOURS NEEDED. as neede d for PAIN Qty = 28 Instructions: TAKE 1 TABLET BY MOUTH EVERY 6 HOURS NEEDED FOR PAIN METHOCARBAMOL (ROBAXIN) 500 MG TAB 500 MILLIGRAM ORAL FOUR TIMES DAILY NEEDED. as needed for MUSCLE SPASMS Qty = 60 Instructions: TAKE 1 TABLET BY MOUTH EVERY 6 HOURS NEEDED FOR MUSCLE SPASMS ASPIRIN EC (ECOTRIN) 81 MG TAB.EC 81 MILLIGRAM ORAL TWICE DAILY. Qty = 60 Electronically Signed by Ailyn Lambert NP on 01/29 at 0810 RPT #:[id number] END OF REPORT 2019-02-07 08:07:00-00:00 [facility] ([facility]) Discharge Summary REPORT#:[id number] REPORT STATUS: Signed DATE:02/07/19 TIME: 08 PATIENT: AUBRIE DEL TORO UNIT #: [id number] ROOM/BED: [address] : [address] AGE: 78 SEX: F ATTEND: Joyce Rankin MD ADM AUTHOR: Ailyn Lambert NP * ALL edits or amendments must be made on the el uStudioronic/computer document * PCP PCP Discharge to: home General Information Date of discharge: 02/07/19 Hospital course: Discharge Diagnosis: Right Knee Degenerative Dis ease Procedure: Right Knee Arthroplasty Hospital Course and Findings The patient underwent the pr ocedure without incident. Findings were significant for degenerative disease of the knee. The patien t was hemodynamically and medically monitored during the postoperative per iod. Anticoagulation was instituted for postoperative DVT prophylaxis. e patient was progressively able to tolerate PO pain med ications and the appropriate diet. Physical therapy was instituted, with a progressive ability to am bulate and perform exercises. The patient was eventually deemed stable and saf e for discharge. Despite factors which projected a longer hospita l stay, the patient fulfilled criteria for early discharge on postop day one, including control of pain, early mobilization with therapy, and a stable hemodyna taylor status. At discharge, the patient was comfortabl e, with a controlled pain level. There were no chest or abdominal symptoms present. Dis charge physical examination demonstrated stable vital signs and no acute dis tress. The patient had an intact wound with no signifi cant drainage, and no calf tenderness and a negative Kym s sign bilaterally. There were no neurolog ic or vascular deficits or changes from the preoperative state. Laboratory Tests: 02/07 415 Chemistry Sodium (136 - 145 mmol/L) 140 Potassium (3.5 - 5.1 mmol/L) 4.5 Chloride (98 - 107 mmol/L) 102.0 Carbon Dioxide (21 - 32 mmol/L) 29.6 BUN (7 - 18 mg/dL) 62 *H Creatinine (0.55 - 1.30 mg/dL) 1.73 H Glomerular Filtr Rate (>60) 28.4 Glucose (70 - 110 mg/dL) 156 H Calcium (8.2 - 10.1 mg/dL) 8.2 Hematology Hgb (12 - 16 g/dL) 9.0 L Hct (37 - 47 %) 27.7 L Vital Signs: Date Time Temp Pulse Resp B/P B/P Pulse O2 O2 F low FiO2 Mean Ox Delivery Rate 02/07 0719 Nasal 3.082030 cannula 02/07 0658 35.8 56 18 130/66 87.2 99 Nasal cannula 02/07 0407 35.4 57 14 111/49 71 100 Nasal cannula 02/07 0018 95 Nasal 3.921131 32 cannula 02/06 2233 36.0 57 16 147/64 92 100 Nasal cannula 02/06 2128 Nasal cannula 02/06 2018 98 Nasal 3.913392 32 cannula 02/06 1926 35.8 59 18 142/61 88 100 Nasal cannula 02/06 1502 36.0 53 18 160/72 103 98 Nasal cannula 02/06 1221 Nasal 3.021166 cannula 02/06 1210 100 Nasal 3.407492 32 cannula 02/06 1210 36.5 53 14 178/72 104 100 Nasal cannula 02/06 1147 36.6 60 16 155/60 95 Nasal 3.973068 cannula 02/06 1145 Nasal 3.301056 cannula 02/06 1144 49 19 159/65 95 Nasal 3.793672 cannula 02/06 1125 49 14 141/62 100 Simple 10.824293 mask 07/09 1123 Simple 10.288005 mask 02/06 1110 36.4 48 26 169/71 100 Simple 10.0000 00 mask Disposition: Discharged to home Discharge Condition: Stable Instructions: Instruction sheet given to patient Activity: Ambulate with assistance, with weight- bearing as instructed in the hospital. Diet: As per preoperatively Prescriptions 1. Pain Medications: As per discharge prescription, with progressive weaning as pain decreases 2. Anticoagulation: As per discharge prescription, or PreOp anticoa gulant, as discussed with patient 3. Physical Therapy: Will undergo PT for gait training, mobilization , kcbla-if-laitky, and strengthening. Patient was informed that they ne ed to arrange for therapy as quickly as possible. The imp ortance of early advancement of xzzyu-iz-gkflgt with home exercises, and physical therapy was stresse d to the patient. Follow-up Appointment: Patient instructe d to arrange appointment for an office visit in 2 weeks Med Rec Med Rec Discharge meds: Continue taking these medications: Telmisartan/Hydrochlorothiazid (Micardis HCT 80/ 12.5 Mg Tab) 80 MG-12.5 MG TABLET 1 TABLET ORAL DAILY. CARVEDILOL (COREG) 12.5 MG TAB 12.5 MILLIGRAM ORAL DAILY. LEVOTHYROXINE (SYNTHROID) 100 MCG TAB 100 MICROGRAM ORAL DAILY. cloNIDine (CATAPRES) 0.2 MG TAB 0.2 MILLIGRAM ORAL AT BEDTIME FUROSEMIDE (LASIX) 20 MG TAB 20 MILLIGRAM ORAL DAILY. PREGABALIN (LYRICA) 150 MG CAP 150 MILLIGRAM ORAL TWICE DAILY. Oxybutynin Chloride (Ditropan XL) 15 MG TAB.OSM. 24 15 MILLIGRAM ORAL AT BEDTIME RABEprazole DR (ACIPHEX) 20 MG TAB.DR 20 MILLIGRAM ORAL DAILY. [ULORIC] 20 MG 1 TABLET ORAL DAILY. LIOTHYRONINE (CYTOMEL) 5 MCG TAB 5 MICROGRAM ORAL DAILY. traMADol (ULTRAM) 50 MG TAB 50 MILLIGRAM ORAL EVERY 6 HOURS NEEDED. as n eeded for PAIN Qty = 100 Instructions: TAKE 1-2 TABLETS BY MOUTH EVERY 6 HOURS NEED ED FOR PAIN POTASSIUM CHLORIDE ER (MICRO-K) 10 MEQ CAP.SA 10 MILLIEQUIVALENT ORAL DAILY. MAGNESIUM OXIDE (MAGNESIUM OXIDE) 500 MG TAB 500 MILLIGRAM ORAL DAILY. DOXAZOSIN (CARDURA) 4 MG TAB 4 MILLIGRAM ORAL BEDTIME. HYDROcodone/APAP (NORCO 10/325) 1 TAB TAB 1 TABLET ORAL EVERY 6 HOURS NEEDED. as neede d for PAIN Qty = 28 Instructions: TAKE 1 TABLET BY MOUTH EVERY 6 HOURS NEEDED FOR PAIN METHOCARBAMOL (ROBAXIN) 500 MG TAB 500 MILLIGRAM ORAL FOUR TIMES DAILY NEEDED. as needed for MUSCLE SPASMS Qty = 60 Instructions: TAKE 1 TABLET BY MOUTH EVERY 6 HOURS NEEDED FOR MUSCLE SPASMS ASPIRIN EC (ECOTRIN) 81 MG TAB.EC 81 MILLIGRAM ORAL TWICE DAILY. Qty = 60 Electronically Signed by Ailyn Lambert NP on 01/29 at 0810 at 0830 RPT #:[id number] END OF REPORT 2019-02-06 17:46:00-00:00 [facility] ([facility]) Clinical Note REPORT#:[id number] REPORT STATUS: Signed DATE:02/06/19 TIME: 1745 PATIENT: AUBRIE DEL TORO UNIT #: [id number] ROOM/BED: [address] : [address] AGE: 78 SEX: F ATTEND: Joyce Rankin MD ADM AUTHOR: Herbert Boyd MD * ALL edits or amendments must be made on the el Publim[employer]/computer document * Clinical Note Note: [facility] Herbert cameron MD (cell text [phone]) Internal Medicine Consult at request of : Dr Joyce Rankin Chief Complaint: Right knee pain HPI: .78 yo F now s/p Right Total Knee Arthropla sty (TKA) by Dr. Rankin. Ms. Del Toro relates years of pro gressive right knee pain (recently severe, 6-8), worse with activity, and achy and stiff at times in quality. She has failed conservative management. Comorbidities: see below. PmHx: .Hypertension, ZACHERY, Gout, ZACHERY, Hypothyroid ism, Lymphedema, Peripheral neuropathy, Melanoma, CKD stage IV ALLERGY: Allergies: No Known Drug Allergies (Coded, 02/11/12) Home Medications: Home Medications: traMADol (ULTRAM) 50 MG PO Q6H PRN PRN PAIN HYDROcodone/APAP (NORCO 10/325) 1 TAB PO Q6H PRN PRN PAIN METHOCARBAMOL (ROBAXIN) 500 MG PO QID PRN PRN MU SCLE SPASMS ASPIRIN EC (ECOTRIN) 81 MG PO BID Telmisartan/Hydrochlorothiazid (Micardis HCT 80/ 12.5 Mg Tab) 1 TAB PO DAILY CARVEDILOL (COREG) 12.5 MG PO DAILY LEVOTHYROXINE (SYNTHROID) 100 MCG PO DAILY cloNIDine (CATAPRES) 0.2 MG PO HS FUROSEMIDE (LASIX) 20 MG PO DAILY PREGABALIN (LYRICA) 150 MG PO BID Oxybutynin Chloride (Ditropan XL) 15 MG PO HS RABEprazole DR (ACIPHEX) 20 MG PO DAILY [ULORIC] 1 TAB PO DAILY LIOTHYRONINE (CYTOMEL) 5 MCG PO DAILY POTASSIUM CHLORIDE ER (MICRO-K) 10 MEQ PO DAILY MAGNESIUM OXIDE 500 MG PO DAILY DOXAZOSIN (CARDURA) 4 MG PO BEDTIME SgHx: .Appendectomy, partial hysterectomy, Left TKA, Bilateral CTR, tonsillectomy, Shoulder replacement SHx: Tob: none FHx: .No significant hx of DVT/P E. Alcohol: none Drugs: none Lives: with grandson Vitals: Vital Signs: Date Time Temp Pulse Resp B/P B/P Pulse O2 O2 F low FiO2 Mean Ox Delivery Rate 02/06 1502 96.8 53 18 160/72 103 98 Nasal cannula 02/06 1221 Nasal 3.818862 cannula 02/06 1210 97.7 53 14 178/72 104 100 Nasal cannula 02/06 1147 97.9 60 16 155/60 95 Nasal 3.346778 cannula 02/06 1145 Nasal 3.098998 cannula 02/06 1144 49 19 159/65 95 Nasal 3.548246 cannula 02/06 1125 49 14 141/62 100 Simple 10.335240 mask 02/06 1123 Simple 10.340090 mask 02/06 1110 97.5 48 26 169/71 100 Simple 10.0000 00 mask 02/06 0753 96.7 51 16 178/70 97 Gen: Alert, in mild discomfort, nl nutrition. EYE: Nl lids conjunctiva. ENT: Nl ears Nose, nl lips,. Neck: Supple, nl thyroid, No masses. CV: Regular Rate Rhythm, no heave or significant murmur. Edema- none Feet toes normal temperature. RESP: Clear to Auscultation, normal Respiratory effort. ABD: Soft, NonDistended,. LYM: No significant cervical Lymphadenopathy. MS: No Clubbing, cyanosis, Knee is wrapped, NEURO: Nonfocal, grossly normal sensation of LE, +Ankle DF/PF PSY: Normal insight, Normal mood, oriented, . Preop Labs(01/24/19): CBC:. Hgb 10.7, Plt 187, CHEM: Na 140, K 5.0, Cr 1.77(eGFR 27.7%), . EKG (outside record 02/08/18): Sinus bradycardia at 58 bpm (medium to high risk of complications or morbidi ty) (major surgery) (IV sedative, meds) Assessment Plan 1.) Anemia of Acute Blood Loss- .will recheck 05/19. 2.) S/p Right TKA- .acute pain control. Anticoag ulation as per Dr. Rankin. 3.) Hypertension CKDz3- .follow BP and hold Rxs if SBP<120. 4.) ZACHERY Hypothyroid Hx of Gout Hyperlipidemia- . continue on Rx. Herbert Alamo M.D. Thanks! at 2251 RPT #:[id number] END OF REPORT 2019-02-06 10:30:00-00:00 [id number] [facility] [place] [id number] PATIENT NAME: AUBRIE DEL TORO ADMIT DATE: 0 02/06/19 ACCOUNT NO: [id number] ROOM NO: Y.[facility] AGE: 78 REPORT TYPE: OPERATIVE REPORT SEX: F ADMITTING PHYSICIAN:Steve Rankin MD ATTENDING PHYSICIAN:Steve Rankin MD OPERATION DATE: 02/06/2019 PREOPERATIVE DIAGNOSIS: Right knee end-stage deg enerative joint disease. POSTOPERATIVE DIAGNOSIS: Right knee end-stage de generative joint disease. PROCEDURE PERFORMED: Right total knee arthroplas ty. SURGEON: Steve Rankin MD FORESTRY FIRE AID: Jane Neumann PA-C Knee arthroplasty requires an product safety technical assistant for hold ing of retractors for wide exposure so that the surgeon has both hands free to perform the surgery. In addition, with extremity kael emmie, the product safety technical assistant positions and stabilizes the leg in order for the surgeon to use his hands to ope rate. Retraction for exposure and visualization, and stabi lization of the extremity are vital to the procedure and not possible without an product safety technical assistant. Dr. Rankin is not part of any residency or fellowship training [facility] and therefore required the help of the product safety technical assistant listed above for this surgery. ANESTHESIA: COMPONENTS USED: DeP[employer] Sigma posterior stabilize d knee system, femur size 3, tibia size 2.5, insert size 12.5, and patella si ze 38 oval. FINDINGS: End-stage degenerative joint d isease of the right knee with complete joint space loss, osteophyte formation, subchondral sclerosis, and bone on bone changes. PROCEDURE IN DETAIL: The pat ient was bought to the operating room and placed in the supine position After induction of anesthesia, a tourniquet was placed on the upper thigh. Sterile prepping and draping proceeded. The tour niquet was inflated. A midline incision was made, centered ov er the patella. Dissection was sharply carried down through the subcutaneous tissues. V MO splitting arthrotomy was performed. The patella was r etracted laterally by the product safety technical assistant and the leg was held in position by the product safety technical assistant. The proximal medial tibia wa s denuded, with release of medial soft-tissues, the PATIENT NAME: AUBRIE DEL TORO ACCOUNT #: [id number] extent of which was dictated by the patient's de formity. The ACL and PCL were released. The medial and lateral meniscal remnan ts and suprapatellar fat pad were removed. Osteophytes were removed. An extramedullary tibial cutting jig was pinned to the proximal tibia and the tibial cut was made. Its alignment was checked a nd found to be appropriate. The distal femoral cut was made and the knee was balanced in extension. The femur was sized, rotation was set, a nd the flexion gap was balanced to the extension gap. The femoral anterior-posterior, c hamfer, and notch-cuts were made. A spacer-block was used to check symmetry of the gaps and stability. The tibia was re-exposed and the leg was stabilized in the appropriate position by the product safety technical assistant for tibial preparation. The tib ia was sized and the tibial keel was drilled and punched after appro priate tibial rotation was set with an alignment loren. The femoral intramedullary hole w as plugged with bone from the tibia. The trial femoral com ponent was impacted onto the distal femur and found to have an excellent fit. A trial polyethylene w as inserted. The knee was found to have excellent sym metric stability in the medial-lateral and lynn-posterior directions in flexion and e xtension. The patella was held in a slightly everted posit ion with knee in extension. Patellar width was checked with calipers. A cut of the patellar articular surface was performed and checked to ens ure symmetry with the calipers. Sizing was then performed and 3 lug holes were drilled with the jig in place, taking care to medialize and superi orize the component as much as possible, given bony anatomy. Excess lateral patellar bone was recess ed. The trial patellar component was placed. Knee llyiw-ey-gphaua, stability, and patellar tr acking were found to be excellent. The trials were removed, and as the cement was m ixed, all cut surfaces were thoroughly washed and dried. The product safety technical assistant held the retractors for exposure and held the leg in the appropriate positions for ce mentation. The cement was applied to the components and the cut morgan rfaces with digital pressurization and then the components were imp acted into position. The knee was brought into full extension with the trial polyethylene and furthe r axially pressurized. Once the cement had hardened, the tourniquet was deflated. Excess cement was carefully looked for and removed. Thorough irrigation with several liters of antib iotic solution was performed. The tourniquet was deflated. Adequate hemostasis was obtained and confirmed. The real polyethylene compon ent was engaged. Local anesthetic was injected into the capsule, arthrotomy site, and subcutaneous r egion. The arthrotomy was repaired, and after further i rrigation, the subcutaneous tissues were closed in a multi-layered fashion. This was followed by skin PATIENT NAME: AUBRIE DEL TORO ACCOUNT #: [id number] closure. Sterile dressing was applied. The patient was awakened and transferred to the recovery room in stable condition. ESTIMATED BLOOD LOSS: 50 mL. SPECIMENS: None. Dictated By: Steve Rankin MD WT: OP:TAMMY/FRANCISCA. Conf#: [id number]/DID#: [id number] Authenticated by Steve Rankin MD On 02/08/20 08:57:22 AM at 0857 PATIENT NAME: AUBRIE DEL TORO ACCOUNT #: [id number] 2019-02-06 10:19:00-00:00 [facility] ([facility]) Op/Inv Procedure Note - Brief REPORT#:[id number] REPORT STATUS: Signed DATE:02/06/19 TIME: 1019 PATIENT: AUBRIE DEL TORO UNIT #: [id number] ROOM/BED: [place] [address] : 39 AGE: 78 SEX: F ATTEND: Joyce Rankin MD ADM AUTHOR: Steve Rankin MD * ALL edits or amendments must be made on the el [employer]/computer document * Op/Inv Proc Note - Brief TEXT Brief Op/Inv Procedure Note Note details: Pre-procedure diagnosis: Right Knee Degenerative Joint Disease Post-procedure diagnosis: Same Procedures performed: Right Total Knee Arthropla sty Primary Surgeon: LAITH Electric Arc Welder: [KAYDEN SMYTH] Findings: Severe degenerativ e disease see dictated operative report for details Complications: None Estimated Blood Loss in ml's: [50] cc Specimens removed/altered: None at 1019 RPT #:[id number] END OF REPORT
--- NOTE | 2022-12-29 12:51 | RAD REPORT ---
EXAM DESCRIPTION: RADChest Single View12/29/2022 12:38 pm CLINICAL HISTORY: fall, weakness COMPARISON: Chest Single View dated 08/15/2022; Chest Single View dated 08/14/2022; Chest Single View dated 08/13/2022; Chest Single View dated 08/09/2022 TECHNIQUE: Portable AP view of the chest. FINDINGS: Stable retrocardiac airspace opacity with small to moderate left pleural effusion. Right l kate is clear. Left atrial appendage occlusion device in place. The cardiomediastinal contours are unc hanged. IMPRESSION: Stable findings, as above.
--- NOTE | 2022-12-29 12:51 | RAD REPORT ---
EXAM DESCRIPTION: CT - CTHCSPWOC - 12/29/2022 12:32 pm CLINICAL HISTORY: weakness, fall x 2 COMPARISON: No comparisons TECHNIQUE: Axial thin cut noncontrast CT images of the head were obtained. Axial thin cut noncontrast CT images of the cervical spine were obtained. Multiplanar reformatted images were generated and reviewed. All CT scans are performed using dose optimization technique as appropriate and may include automated exposure control or mA/KV adjustment according to patient size. FINDINGS: CT HEAD WITHOUT CONTRAST: No acute hemorrhage, hydrocephalus or extra-axial collection is identified.No areas of brain edema or midline shift. The paranasal sinuses are clear. Patchy opacification in the left mastoid air cells.The calvarium is intact. Hyperostosis frontalis interna noted. CT CERVICAL SPINE WITHOUT CONTRAST: No fracture or subluxation. Multilevel degenerative changes with up to moderate disc height loss at C 6-7. No evidence of bony canal stenosis. Facet and uncovertebral joint arthropathy contribute to at l east moderate bilateral neural foraminal narrowing at C5-6 and right neural foraminal narrowing at C4 -5. No prevertebral soft tissues swelling is identified. IMPRESSION: No acute traumatic intracranial or cervical spine findings. Cervical spine degenerative changes as above.
[2022-12-29 13:13] LABS: Absolute Lymphocytes (CBC) 0.8 K/uL (0.7-4.9); Hematocrit 27.4 % (36.0-45.0); Lymphocytes % 13.8 % (15.3-44.8); MCV 86.9 fL (80-100); MPV 9.4 fL (7.6-11.3); RBC Red Blood Cell Count 3.15 M/uL (3.86-4.86)
[2022-12-29 13:35] LABS: Albumin 3.1 g/dL (3.4-5.0); Bilirubin Direct 0.1 mg/dL (0-0.2); Bilirubin Indirect, Calculated 0.2 mg/dL (0.2-0.8); Bilirubin Total 0.3 mg/dL (0.2-1.0); Magnesium 2.7 mg/dL (1.6-2.4); Potassium 4.5 mEq/L (3.5-5.1); Protein, Total 6.7 g/dL (6.4-8.2); Troponin High Sensitivity 15.4 pg/mL (<58.9)
[2022-12-29] MEDS ORDERED: NA CHLORIDE 0.9% 500 ML ONE (13:38)
[2022-12-29 13:49] LABS: Protime INR 1.01
--- NOTE | 2022-12-29 15:29 | EDPHYS ---
Physician Documentation [facility] Name: Aubrie Del Toro Age: 82 yrs Sex: Female : 1940 Arrival Date: 12/29/2022 Time: 11:13 Bed 17 Private MD: Eddie Solis V ED Physician Dimitrios Alcaraz HPI: 12/29 14:25 This 82 yrs old Female presents to ER via Wheelchair with complaints of Fall Injury, rn weakness. 14:25 Details of fall: The patient fell from an upright position. rn 14:26 Onset: The symptoms/episode began/occurred 2 day(s) ago. Associated injuries: The rn patient sustained no obvious injury. Severity of symptoms: At their worst the symptoms were moderate, in the emergency department the symptoms are unchanged. The patient has not experienced similar symptoms in the past. The patient has not recently seen a physician. Pt reports generalized weakness and fatigue, all extremities weak and shaking with effort, has fallen twice, no injuries from fall, no focal weakness. NO medication changes. No fever. No vomiting/diarrhea. . Historical: - Allergies: 11:54 No Known Allergies; iw - PMHx: 11:54 Atrial fibrillation; bladder issues; Cataracts; GERD; Headaches; Hypertension; iw Hypothyroidism; l eblow melanoma; lymphedema; neuropathy; - Family history:: not pertinent. - Hospitalizations: : No recent hospitalization is reported. ROS: 14:27 Constitutional: Negative for fever, chills, and weight loss, Eyes: Negative for injury, rn pain, redness, and discharge, Neck: Negative for injury, pain, and swelling, Cardiovascular: Negative for chest pain, palpitations, and edema, Respiratory: Negative for shortness of breath, cough, wheezing, and pleuritic chest pain, Abdomen/GI: Negative for abdominal pain, nausea, vomiting, diarrhea, and constipation, Back: Negative for injury and pain, MS/Extremity: Negative for injury and deformity, Skin: Negative for injury, rash, and discoloration, Neuro: + generalized weakness Exam: 14:27 Constitutional: This is a well developed, well nourished patient who is awake, alert, rn and in no acute distress. Head/Face: Normocephalic, atraumatic. Cardiovascular: Bradycardic, regular. No pulse deficits. Respiratory: No increased work of breathing, no retractions or nasal flaring. Abdomen/GI: Soft, non-tender Skin: Warm, dry MS/ Extremity: Pulses equal, no cyanosis. Neurovascular intact. Full, normal range of motion. Equal circumference. Neuro: Awake and alert, GCS 15, oriented to person, place, time, and situation. Cranial nerves II-XII grossly intact. Motor strength 4/5 in all extremities. Sensory grossly intact. Vital Signs: 11:59 BP 140 / 50; Pulse 55; Resp 18; Temp 97.8; Pulse Ox 99% on R/A; Weight 81.65 kg; Height iw 5 ft. 6 in. ; 14:30 BP 156 / 41; Pulse 45; Resp 12; Pulse Ox 98% on R/A; vg1 11:59 Body Mass Index 29.05 (81.65 kg, 167.64 cm) iw MDM: 11:40 Patient medically screened. rn 14:38 Differential diagnosis: closed head injury, sprain, strain. Data reviewed: vital signs, rn nurses notes, and as a result, I will admit patient. 15:27 Management of patient was discussed with the following: Primary Care Provider: Dr. vasu Solis. Counseling: I had a detailed discussion with the patient and/or guardian regarding: the historical points, exam findings, and any diagnostic results supporting the discharge/admit diagnosis, lab results, radiology results, the need for further work-up and treatment in the hospital. Response to treatment: the patient's symptoms have mildly improved after treatment, and as a result, I will admit patient. 12/29 12:14 Order name: Basic Metabolic Panel; Complete Time: 13:12/29 12:14 Order name: CBC with Diff; Complete Time: 14:12/29 12:14 Order name: Hepatic Function; Complete Time: 13:12/29 12:14 Order name: Magnesium; Complete Time: 13:12/29 12:14 Order name: Protime (+inr); Complete Time: 14:12/29 12:14 Order name: Ptt, Activated; Complete Time: 14:12/29 12:14 Order name: Troponin High Sensitivity; Complete Time: 13:12/29 12:14 Order name: Urinalysis w/ reflexes 12/29 12:14 Order name: BNP; Complete Time: 13:37 rn 12/29 12:14 Order name: CT Head C Spine; Complete Time: 12:54 rn 12/29 12:14 Order name: Chest Single View XRAY; Complete Time: 12:54 rn 12/29 12:14 Order name: EKG; Complete Time: 12:15 rn 12/29 12:14 Order name: Cardiac monitoring; Complete Time: 13:25 rn 12/29 12:14 Order name: EKG - Nurse/Tech; Complete Time: 13:25 rn 12/29 12:14 Order name: IV Saline Lock; Complete Time: 13:03 rn 12/29 12:14 Order name: Labs collected and sent; Complete Time: 13:03 rn 12/29 12:14 Order name: O2 Per Protocol; Complete Time: 13:25 rn 12/29 12:14 Order name: O2 Sat Monitoring; Complete Time: 13:25 rn Administered Medications: 13:36 Drug: NS 0.9% IV 500 ml Route: IV; Rate: bolus; Site: left antecubital; vg1 15:29 Follow up: IV Status: Completed infusion; IV Intake: 500ml vg1 Disposition Summary: 12/29/22 15:28 Hospitalization Ordered Hospitalization Status: Inpatient Admission rn Provider: Eddie Solis rn Location: Telemetry/MedSurg (Inpatient) rn Condition: Stable rn Problem: new rn Symptoms: have improved rn Bed/Room Type: Standard rn Room Assignment: 221(12/29/22 17:06) dw Diagnosis - Muscle weakness (generalized) rn - Repeated falls rn - Dehydration rn - Anemia, unspecified rn Forms: - Medication Reconciliation Form rn - SBAR form rn Signatures: Dispatcher [employer] Carol Clements RN RN Antonieta Tello RN RN Dimitrios Ferreira MD MD rn Garcia, Victoria, RN RN vg1 Corrections: (The following items were deleted from the chart) 11:54 11:54 PMHx: atri; 17:06 15:28 rn rhona
--- NOTE | 2022-12-29 15:29 | ER ---
[facility]urse's Notes [facility] Name: Aubrie Del Toro Age: 82 yrs Sex: Female : 1940 Arrival Date: 12/29/2022 Time: 11:13 Bed 17 Private MD: Eddie Solis V Diagnosis: Muscle weakness (generalized);Repeated falls;Dehydration;Anemia, unspecified Presentation: 12/29 11:53 Chief complaint: Patient states: fall on Tuesday and Tuesday , is lethargic now. iw 11:53 Acuity: [facility] 3 iw 11:59 Coronavirus screen: Vaccine status: Patient reports receiving the 2nd dose of the covid iw vaccine. Ebola Screen: No symptoms or risks identified at this time. Initial Sepsis Screen: Does the patient meet any 2 criteria? No. Patient's initial sepsis screen is negative. Does the patient have a suspected source of infection? No. Patient's initial sepsis screen is negative. Risk Assessment: Do you want to hurt yourself or someone else? Patient reports no desire to harm self or others. Onset of symptoms. 11:59 Method Of Arrival: Wheelchair iw Historical: - Allergies: 11:54 No Known Allergies; iw - PMHx: 11:54 Atrial fibrillation; bladder issues; Cataracts; GERD; Headaches; Hypertension; iw Hypothyroidism; l eblow melanoma; lymphedema; neuropathy; - Family history:: not pertinent. - Hospitalizations: : No recent hospitalization is reported. Screenin:38 [facility] ED Fall Risk Assessment (Adult) History of falling in the last 3 months, vg1 including since admission Yes- single mechanical fall (1 pt) Confusion or Disorientation No (0 pts) Intoxicated or Sedated No (0 pts) Impaired Gait Yes (1 pt) Mobility Assist Device Used Yes (1 pt) Altered Elimination No (0 pt) Score/Fall Risk Level 3 or more points = High Risk Oriented to surroundings, Maintained a safe environment, Educated pt \T\ family on fall prevention, incl call for assistance when getting out of bed, Assessed \T\ reinforced patient's understanding of fall precautions, Provided non-skid footwear, Utilized family, sitter, or virtual instrument repairer steam plant as indicated. Abuse screen: Denies threats or abuse. Denies injuries from another. Nutritional screening: No deficits noted. Tuberculosis screening: No symptoms or risk factors identified. Assessment: 13:38 General: Appears in no apparent distress. uncomfortable, Behavior is calm, cooperative. vg1 Pain: Denies pain. Neuro: Level of Consciousness is awake, alert, obeys commands, Oriented to person, place, time, situation, Reports dizziness, stated fell on TuesdayDecember 27, while getting out of shower and bumped head on shower that made of fiberglass. Cardiovascular: Patient's skin is warm and dry. Respiratory: Airway is patent Respiratory effort is even, unlabored. GI: No signs and/or symptoms were reported involving the gastrointestinal system. : No signs and/or symptoms were reported regarding the genitourinary system. EENT: Reports has been seeing DR ROJO for the past couple of months for dizziness; stated last week a tube was placed in Left ear and has fluid in Right ear. Derm: Skin is pink, warm \T\ dry. Musculoskeletal: Circulation, motion, and sensation intact. 14:55 Reassessment: Patient appears in no apparent distress at this time. No changes from vg1 previously documented assessment. Patient and/or family updated on plan of care and expected duration. Pain level reassessed. Patient is alert, oriented x 3, equal unlabored respirations, skin warm/dry/pink. Vital Signs: 11:59 BP 140 / 50; Pulse 55; Resp 18; Temp 97.8; Pulse Ox 99% on R/A; Weight 81.65 kg; Height iw 5 ft. 6 in. ; 14:30 BP 156 / 41; Pulse 45; Resp 12; Pulse Ox 98% on R/A; vg1 11:59 Body Mass Index 29.05 (81.65 kg, 167.64 cm) iw ED Course: 11:15 Patient arrived in ED. mr 11:15 Eddie Solis MD is Private Physician. mr 11:40 Dimitrios Alcaraz MD is Attending Physician. rn 11:53 Triage completed. iw 11:54 Arm band placed on. iw 12:33 CT Head C Spine In Process Unspecified. EDMS 12:39 Chest Single View XRAY In Process Unspecified. EDMS 13:02 Inserted saline lock: 20 gauge in left antecubital area, using aseptic technique. Blood zm collected. 13:03 BNP Sent. zm 13:03 Basic Metabolic Panel Sent. zm 13:03 CBC with Diff Sent. zm 13:03 Hepatic Function Sent. zm 13:03 Magnesium Sent. zm 13:03 Protime (+inr) Sent. zm 13:03 Ptt, Activated Sent. zm 13:03 Troponin High Sensitivity Sent. zm 13:19 Pallavi Fernandes, RN is Primary Nurse. vg1 13:26 Placed in gown. Bed in low position. Call light in reach. Side rails up X 1. Client mb9 placed on continuous cardiac and pulse oximetry monitoring. NIBP monitoring applied. ekg monitor on. Door closed. Noise minimized. Warm blanket given. 13:38 No provider procedures requiring assistance completed. vg1 15:28 Eddie Solis MD is Hospitalizing Provider. rn 17:28 Patient admitted, IV remains in place. vg1 Administered Medications: 13:36 Drug: NS 0.9% IV 500 ml Route: IV; Rate: bolus; Site: left antecubital; vg1 15:29 Follow up: IV Status: Completed infusion; IV Intake: 500ml vg1 Medication: 13:38 VIS not applicable for this client. vg1 Intake: 15:29 IV: 500ml; Total: 500ml. vg1 Outcome: 15:28 Decision to Hospitalize by Provider. rn 17:27 Admitted to Tele accompanied by tech, room 221, with chart, Report called to Jojo LYLE vg1 17:27 Condition: good 17:27 Instructed on the need for admit. 18:20 Patient left the ED. vg1 Signatures: Dispatcher [employer] Di May Irene, RN RN iw Nieto, Roman, MD MD rn Garcia, Victoria RN RN vg1 Katlin Mccurdy, Di Rae, RN RN mb9 Corrections: (The following items were deleted from the chart) 11:54 11:54 PMHx: atri; iw iw
[2022-12-29] MEDS ORDERED: NA CHLORIDE 0.9% 1,000 ML IV SCH ×2 (17:56→20:47)
[2022-12-29 19:27] VITALS: BMI 29.0
[2022-12-29 20:42] LABS: Urine Bacteria <20 /HPF (<20); Urine RBC <5 /HPF (None Seen)
--- NOTE | 2022-12-29 20:54 | P.HP ---
Certification for Inpatient Patient admitted to: Inpatient With expected LOS: >2 Midnights Practitioner: I am a practitioner with admitting privileges, knowledge of patient current condition, hospital course, and medical plan of care. Services: Services provided to patient in accordance with Admission requirements found in Title 42 Section 412.3 of the Code of Federal Regulations Patient History Date of Service: 12/29/22 Reason for admission: WEAKNESS History of Present Illness: GRACIELA IS GETTING WEAKER OVER LAST ONE WEEK ADN WAS BROUGHT TO ER. SHE HAS NO PAIN. NO BURNING AT URINATION. SHE HAS HISTORY OF UTIS, HTN, CFH ETC. Allergies No Known Allergies Allergy (Verified 01/01/21 20:48) Home medications list reviewed: Yes Home Medications: Liothyronine Sodium [Cytomel] 5 mcg PO DAILY 01/01/21 ursodioL [Ursodiol] 300 mg PO BID 01/01/21 Furosemide [Lasix*] 40 mg PO DAILY 02/19/21 Pregabalin [Lyrica*] 150 mg PO BID 02/19/21 oxyBUTYnin chloride [Ditropan*] 15 mg PO DAILY 02/19/21 Rabeprazole Sodium 20 mg PO DAILY 10/06/21 Levothyroxine [Synthroid*] 112 mcg PO [id number] 05/25/22 Rosuvastatin [Crestor*] 5 mg PO BEDTIME 05/25/22 Losartan Potassium 100 mg PO DAILY #90 tab 05/28/22 Potassium Chloride 20 meq PO DAILY 08/11/22 Hydralazine HCl 100 mg PO BID #180 08/16/22 levoFLOXacin [Levaquin*] 750 mg PO Q48H #5 tab 08/16/22 ursodioL [Actigall*] 300 mg PO BID cap 08/16/22 - Past Medical/Surgical History Has patient received pneumonia vaccine in the past: Yes Diabetic: No -: CHF -: Hypothyroidism -: GERD -: Neuropathy -: Insomnia -: Hyperlipidemia -: overactive bladder -: Lymphedema -: Right Shoulder Replacement -: Bilateral knee replacement -: Hysterectomy -: ULE Melanoma removal -: Tonsilectomy -: Adnoidectomy -: Bilateral eye surgery r/t strabismus - Family History Mother -: Hypertension, Stroke, Other (see notes) Notes: COPD Father -: Heart disease, Other (see notes) Notes: CHF - Social History Smoking Status: Never smoker Alcohol use: No CD- Drugs: No Caffeine use: Yes Place of Residence: Home Review of Systems 10-point ROS is otherwise unremarkable General: Weakness, Malaise Physical Examination - Vital Signs Temperature: 96.0 F Blood Pressure: 142/59 Pulse: 47 Respirations: 16 Pulse Ox (%): 97 - Physical Exam General: Oriented x3, Mild distress, Other HEENT: Atraumatic, PERRLA, Mucous membr. moist/pink, EOMI, Sclerae nonicteric Neck: Supple, 2+ carotid pulse no bruit, No LAD, Without JVD or thyroid abnormality Respiratory: Clear to auscultation bilaterally, Normal air movement Cardiovascular: Regular rate/rhythm, Normal S1 S2 Gastrointestinal: Normal bowel sounds, No tenderness Musculoskeletal: No tenderness Integumentary: No rashes Neurological: Normal gait, Normal speech, Normal strength at 5/5 x4 extr, Normal tone, Normal affect Lymphatics: No axilla or inguinal lymphadenopathy - Studies Laboratory Data (last 24 hrs) 12/29/22 12:57: PT 11.1, INR 1.01, APTT 32.8 12/29/22 12:57: WBC 6.00, Hgb 9.0 L, Hct 27.4 L, Plt Count 131 L 12/29/22 12:57: Sodium 137, Potassium 4.5, BUN 45 H, Creatinine 2.08 H, Glucose 116 H, Magnesium 2.7 H, Total Bilirubin 0.3, AST 31, ALT 32, Alkaline Phosphatase 68 Assessment and Plan - Problems (Diagnosis) (1) Dehydration Current Visit: Yes Status: Acute Plan: GENTLE HYDRATIOIN. PT CONSULT AVOID DIURETIC SFOR NOW. (2) UTI (urinary tract infection) Current Visit: No Status: Acute Plan: MOST LIKELY. CHECK UA AND CULTURE IV ROCEPHIN. - Advance Directives Does patient have a Living Will: Yes Does patient have a Durable POA for Healthcare: Yes
[2022-12-29 21:08] LABS: Specific Gravity 1.016 (1.005-1.030); Transitional Epithelial <5 /HPF (None Seen); Urine Bilirubin NEGATIVE (Negative); Urine Blood Negative (Negative); Urine Clarity Turbid (Clear); Urine Color Light-Yellow (Yellow); Urine Glucose NEGATIVE (Negative); Urine Protein TRACE (Negative); Urine Urobilinogen Normal (Normal)
[2022-12-30 01:05] LABS: Specific Gravity 1.016 (1.005-1.030); Urine Bacteria <20 /HPF (<20); Urine Bilirubin NEGATIVE (Negative); Urine Blood Negative (Negative); Urine Clarity Clear (Clear); Urine Color Light-Yellow (Yellow); Urine Glucose NEGATIVE (Negative); Urine Mucus Slight /HPF (None Seen); Urine Protein TRACE (Negative); Urine RBC <5 /HPF (None Seen); Urine Urobilinogen Normal (Normal); Urine pH 6.5 (5.0-7.0)
[2022-12-30 04:28] LABS: Absolute Lymphocytes (CBC) 0.9 K/uL (0.7-4.9); Hematocrit 25.2 % (36.0-45.0); Lymphocytes % 20.9 % (15.3-44.8); MCV 86.1 fL (80-100); MPV 9.7 fL (7.6-11.3); RBC Red Blood Cell Count 2.93 M/uL (3.86-4.86)
[2022-12-30 04:34] LABS: Potassium 4.3 mEq/L (3.5-5.1)
[2022-12-30] MEDS: ASPIRIN EC 81 MG TAB PO SCH (08:59)
[2022-12-30] MEDS: AMIODARONE HCL 200 MG TAB PO SCH (08:59)
[2022-12-30] MEDS: PANTOPRAZOLE 40MG TABLET PO SCH (08:59)
[2022-12-30] MEDS: oxyBUTYnin chloride 5 MG TAB PO SCH (08:59)
[2022-12-30] MEDS: ursodioL 300 MG CAP PO SCH ×2 (08:59→20:57)
[2022-12-30] MEDS: LIOTHYRONINE SOD 5 MCG TAB PO SCH (08:59)
[2022-12-30] MEDS: MONTELUKAST 10 MG TAB PO SCH (08:59)
[2022-12-30] MEDS: PREGABALIN 150 MG CAP PO SCH ×2 (08:59→20:55)
[2022-12-30] MEDS: ENOXAPARIN 30 MG/0.3 ML SQ SCH (09:00)
[2022-12-30] MEDS ORDERED: HOME MED 1 EA UNK (Rabeprazole Sodium [Rabeprazole Sodium] 20 MG Tablet.Dr) PO SCH (09:00)
[2022-12-30] MEDS ORDERED: METHENAMINE HIPPURATE 1 GM PO SCH (09:00)
[2022-12-30] MEDS: MAGNESIUM OXIDE 400 MG TAB PO SCH (09:00)
[2022-12-30] MEDS: MEMANTINE HCL 10 MG TABLET PO SCH ×2 (09:00→20:56)
[2022-12-30] MEDS: LOSARTAN POTASSIUM 50 MG TABLET PO SCH (09:00)
[2022-12-30] MEDS: CEFTRIAXONE 1,000 MG in NA CHLORIDE 0.9% 50 ML IVPB SCH (09:00)
[2022-12-30 10:07] LABS: RBC Red Blood Cell Count 3.04 M/uL (3.86-4.86)
[2022-12-30 10:30] LABS: Ferritin 39.8 ng/mL (8-388)
[2022-12-30] MEDS: ROSUVASTATIN 10 MG TAB PO SCH (20:55)
[2022-12-30] MEDS: METHENAMINE HIPPURATE 1 GM PO SCH (20:56)
--- NOTE | 2022-12-30 22:04 | P.PN ---
Subjective Date of Service: 12/30/22 Chief Complaint: WEAKNESS Subjective: Improving SHE IS LOT BETTER THAN YESTERDAY. NO FEVER, NO PAIN. Review of Systems 10-point ROS is otherwise unremarkable General: Weakness Physical Examination - Vital Signs Temperature: 97.2 F Blood Pressure: 160/62 Pulse: 51 Respirations: 17 Pulse Ox (%): 94 - Physical Exam General: Mild distress HEENT: Atraumatic, PERRLA, EOMI Neck: Supple, JVD not distended Respiratory: Clear to auscultation bilaterally, Normal air movement Cardiovascular: Regular rate/rhythm, Normal S1 S2 Gastrointestinal: Normal bowel sounds, No tenderness Musculoskeletal: No tenderness Integumentary: No rashes Neurological: Normal speech, Normal tone, Normal affect Lymphatics: No axilla or inguinal lymphadenopathy - Studies Medications List Reviewed: Yes Assessment And Plan - Current Problems (Diagnosis) (1) Dehydration Current Visit: Yes Status: Acute Plan: GENTLE HYDRATIOIN. PT CONSULT AVOID DIURETIC SFOR NOW. (2) UTI (urinary tract infection) Current Visit: No Status: Acute Plan: MOST LIKELY. CHECK UA AND CULTURE IV ROCEPHIN. CS PENDING. SHE HAS AHD ESBLE BEFORE WITH FULL TREATMENT. (3) HTN (hypertension) Current Visit: Yes Status: Chronic Plan: ADD CLONIDINE PRN. WILL ADJUST MEDS.
[2022-12-31] MEDS: HYDRALAZINE HCL 25 MG TABLET PO SCH ×3 (00:25→21:08)
[2022-12-31 02:52] LABS: Hematocrit 25.6 % (36.0-45.0); Lymphocytes % 16.3 % (15.3-44.8); MCV 86.6 fL (80-100); MPV 9.8 fL (7.6-11.3); RBC Red Blood Cell Count 2.95 M/uL (3.86-4.86)
[2022-12-31 03:09] LABS: Potassium 4.5 mEq/L (3.5-5.1)
[2022-12-31] MEDS: LEVOTHYROXINE SOD 0.112 MG TAB PO SCH (06:23)
[2022-12-31] MEDS: METHENAMINE HIPPURATE 1 GM PO SCH ×2 (08:28→21:07)
[2022-12-31] MEDS: PREGABALIN 150 MG CAP PO SCH ×2 (08:29→21:08)
[2022-12-31] MEDS: oxyBUTYnin chloride 5 MG TAB PO SCH (08:29)
[2022-12-31] MEDS: MONTELUKAST 10 MG TAB PO SCH (08:29)
[2022-12-31] MEDS: ASPIRIN EC 81 MG TAB PO SCH (08:29)
[2022-12-31] MEDS: MEMANTINE HCL 10 MG TABLET PO SCH ×2 (08:29→21:09)
[2022-12-31] MEDS: CEFTRIAXONE 1,000 MG in NA CHLORIDE 0.9% 50 ML IVPB SCH (08:29)
[2022-12-31] MEDS: LIOTHYRONINE SOD 5 MCG TAB PO SCH (08:29)
[2022-12-31] MEDS: LOSARTAN POTASSIUM 50 MG TABLET PO SCH (08:29)
[2022-12-31] MEDS: ursodioL 300 MG CAP PO SCH ×2 (08:30→21:08)
[2022-12-31] MEDS: ENOXAPARIN 30 MG/0.3 ML SQ SCH (08:30)
[2022-12-31] MEDS: AMIODARONE HCL 200 MG TAB PO SCH (08:30)
[2022-12-31] MEDS: PANTOPRAZOLE 40MG TABLET PO SCH (08:30)
[2022-12-31] MEDS: MAGNESIUM OXIDE 400 MG TAB PO SCH (08:30)
--- NOTE | 2022-12-31 16:41 | P.PN ---
Subjective Date of Service: 12/31/22 Chief Complaint: WEAKNESS Subjective: Improving SHE IS LOT BETTER THAN YESTERDAY. NO FEVER, NO PAIN. SHE IS SITTING IN BED. ABLE TO GO TO [facility]. NO PAIN. Review of Systems 10-point ROS is otherwise unremarkable General: Weakness Physical Examination - Vital Signs Temperature: 98 F Blood Pressure: 152/73 Pulse: 65 Respirations: 18 Pulse Ox (%): 90 - Physical Exam General: Oriented x3, Acute distress HEENT: Atraumatic, PERRLA, EOMI Neck: Supple, JVD not distended Respiratory: Clear to auscultation bilaterally, Normal air movement Cardiovascular: Regular rate/rhythm, Normal S1 S2 Gastrointestinal: Normal bowel sounds, No tenderness Musculoskeletal: No tenderness Integumentary: No rashes Neurological: Normal speech, Normal tone, Normal affect Lymphatics: No axilla or inguinal lymphadenopathy - Studies Medications List Reviewed: Yes Assessment And Plan - Current Problems (Diagnosis) (1) Dehydration Current Visit: Yes Status: Acute Plan: GENTLE HYDRATIOIN. PT CONSULT AVOID DIURETIC SFOR NOW. (2) UTI (urinary tract infection) Current Visit: No Status: Acute Plan: MOST LIKELY. CHECK UA AND CULTURE IV ROCEPHIN. CS PENDING. SHE HAS AHD ESBLE BEFORE WITH FULL TREATMENT. CULTURE GRAM NEG BACILLI ID PENDING SHE HAS HAD ESBL BEFORE. (3) HTN (hypertension) Current Visit: Yes Status: Chronic Plan: ADD CLONIDINE PRN. WILL ADJUST MEDS.
[2022-12-31] MEDS: ROSUVASTATIN 10 MG TAB PO SCH (21:08)
[2023-01-01 02:17] LABS: Absolute Lymphocytes (CBC) 0.9 K/uL (0.7-4.9); Lymphocytes % 16.6 % (15.3-44.8); MCV 85.8 fL (80-100); MPV 9.9 fL (7.6-11.3); RBC Red Blood Cell Count 2.92 M/uL (3.86-4.86)
[2023-01-01 02:31] LABS: Potassium 4.2 mEq/L (3.5-5.1)
[2023-01-01] MEDS: LEVOTHYROXINE SOD 0.112 MG TAB PO SCH (06:43)
[2023-01-01] MEDS: ENOXAPARIN 30 MG/0.3 ML SQ SCH (08:41)
[2023-01-01] MEDS: CEFTRIAXONE 1,000 MG in NA CHLORIDE 0.9% 50 ML IVPB SCH (08:41)
[2023-01-01] MEDS: ASPIRIN EC 81 MG TAB PO SCH (08:41)
[2023-01-01] MEDS: MONTELUKAST 10 MG TAB PO SCH (08:42)
[2023-01-01] MEDS: LOSARTAN POTASSIUM 50 MG TABLET PO SCH (08:42)
[2023-01-01] MEDS: PREGABALIN 150 MG CAP PO SCH ×2 (08:42→20:12)
[2023-01-01] MEDS: PANTOPRAZOLE 40MG TABLET PO SCH (08:42)
[2023-01-01] MEDS: oxyBUTYnin chloride 5 MG TAB PO SCH (08:43)
[2023-01-01] MEDS: MEMANTINE HCL 10 MG TABLET PO SCH ×2 (08:43→20:15)
[2023-01-01] MEDS: MAGNESIUM OXIDE 400 MG TAB PO SCH (08:44)
[2023-01-01] MEDS: LIOTHYRONINE SOD 5 MCG TAB PO SCH (08:44)
[2023-01-01] MEDS: ursodioL 300 MG CAP PO SCH ×2 (08:44→20:14)
[2023-01-01] MEDS: AMIODARONE HCL 200 MG TAB PO SCH (08:44)
[2023-01-01] MEDS: HYDRALAZINE HCL 25 MG TABLET PO SCH ×2 (08:44→20:15)
[2023-01-01] MEDS: METHENAMINE HIPPURATE 1 GM PO SCH ×2 (08:48→20:12)
--- NOTE | 2023-01-01 20:01 | P.PN ---
Subjective Date of Service: 01/01/23 Chief Complaint: WEAKNESS Subjective: Improving SHE IF FEELING GREAT NOW. SHE IS ABLE TO AMBULATE. SHE WANTS TO GO HOME BUT SHE IS GROWING BACERIA THAT HAS ONLY TWO ANTIBIOTICS THAT WILL WORK AND ONE SHE CAN'T TAKE SHE IS ON AMIODARONE AND OTHER ONE IS MERREM I WILL GIVE TOTAL 5 DAYS OF IV MERREM AND THEN DISCHARGE HER. SHE WILL SEE FOR RECURRNT UTI. Physical Examination - Vital Signs Temperature: 97.8 F Blood Pressure: 150/47 Pulse: 50 Respirations: 18 Pulse Ox (%): 98 - Studies Medications List Reviewed: Yes Assessment And Plan - Current Problems (Diagnosis) (1) Dehydration Current Visit: Yes Status: Acute Plan: GENTLE HYDRATIOIN. PT CONSULT AVOID DIURETIC SFOR NOW. (2) UTI (urinary tract infection) Current Visit: No Status: Acute Plan: MOST LIKELY. CHECK UA AND CULTURE IV ROCEPHIN. CS PENDING. SHE HAS AHD ESBLE BEFORE WITH FULL TREATMENT. CULTURE GRAM NEG BACILLI ID PENDING SHE HAS HAD ESBL BEFORE. (3) HTN (hypertension) Current Visit: Yes Status: Chronic Plan: ADD CLONIDINE PRN. WILL ADJUST MEDS.
[2023-01-01] MEDS: ROSUVASTATIN 10 MG TAB PO SCH (20:12)
[2023-01-02 03:15] LABS: Absolute Lymphocytes (CBC) 0.8 K/uL (0.7-4.9); Hematocrit 25.3 % (36.0-45.0); Lymphocytes % 13.2 % (15.3-44.8); MCV 85.9 fL (80-100); MPV 10.1 fL (7.6-11.3); RBC Red Blood Cell Count 2.94 M/uL (3.86-4.86)
[2023-01-02 03:30] LABS: Potassium 4.2 mEq/L (3.5-5.1)
[2023-01-02] MEDS: LEVOTHYROXINE SOD 0.112 MG TAB PO SCH (06:41)
[2023-01-02] MEDS: METHENAMINE HIPPURATE 1 GM PO SCH ×2 (08:59→20:14)
[2023-01-02] MEDS: PREGABALIN 150 MG CAP PO SCH ×2 (09:00→20:14)
[2023-01-02] MEDS: CEFTRIAXONE 1,000 MG in NA CHLORIDE 0.9% 50 ML IVPB SCH (09:00)
[2023-01-02] MEDS: MEMANTINE HCL 10 MG TABLET PO SCH ×2 (09:00→20:15)
[2023-01-02] MEDS: HYDRALAZINE HCL 25 MG TABLET PO SCH ×3 (09:00→20:15)
[2023-01-02] MEDS: ENOXAPARIN 30 MG/0.3 ML SQ SCH (09:00)
[2023-01-02] MEDS: ASPIRIN EC 81 MG TAB PO SCH (09:00)
[2023-01-02] MEDS: MAGNESIUM OXIDE 400 MG TAB PO SCH (09:00)
[2023-01-02] MEDS: PANTOPRAZOLE 40MG TABLET PO SCH (09:01)
[2023-01-02] MEDS: LOSARTAN POTASSIUM 50 MG TABLET PO SCH (09:01)
[2023-01-02] MEDS: AMIODARONE HCL 200 MG TAB PO SCH (09:01)
[2023-01-02] MEDS: LIOTHYRONINE SOD 5 MCG TAB PO SCH (09:02)
[2023-01-02] MEDS: oxyBUTYnin chloride 5 MG TAB PO SCH (09:02)
[2023-01-02] MEDS: ursodioL 300 MG CAP PO SCH ×2 (09:02→20:15)
[2023-01-02] MEDS: MONTELUKAST 10 MG TAB PO SCH (09:02)
--- NOTE | 2023-01-02 11:55 | P.PN ---
Subjective Date of Service: 01/02/23 Chief Complaint: WEAKNESS Subjective: Improving SHE IF FEELING GREAT NOW. SHE IS ABLE TO AMBULATE. SHE WANTS TO GO HOME BUT SHE IS GROWING BACERIA THAT HAS ONLY TWO ANTIBIOTICS THAT WILL WORK AND ONE SHE CAN'T TAKE SHE IS ON AMIODARONE AND OTHER ONE IS MERREM I WILL GIVE TOTAL 5 DAYS OF IV MERREM AND THEN DISCHARGE HER. SHE WILL SEE FOR RECURRNT UTI. SHE IS LOT BETTER WANTS SLEEPING PILL OR PAIN PILL AT NIGHT. Review of Systems 10-point ROS is otherwise unremarkable General: Weakness Physical Examination - Vital Signs Temperature: 97.1 F Blood Pressure: 193/81 Pulse: 63 Respirations: 18 Pulse Ox (%): 94 - Physical Exam General: Mild distress HEENT: Atraumatic, PERRLA, EOMI Neck: Supple, JVD not distended Respiratory: Clear to auscultation bilaterally, Normal air movement Cardiovascular: Regular rate/rhythm, Normal S1 S2 Gastrointestinal: Normal bowel sounds, No tenderness Musculoskeletal: No tenderness Integumentary: No rashes Neurological: Normal speech, Normal tone, Normal affect Lymphatics: No axilla or inguinal lymphadenopathy - Studies Medications List Reviewed: Yes Assessment And Plan - Current Problems (Diagnosis) (1) Dehydration Current Visit: Yes Status: Acute Plan: GENTLE HYDRATIOIN. PT CONSULT AVOID DIURETIC SFOR NOW. IMPROVED WELL. (2) UTI (urinary tract infection) Current Visit: No Status: Acute Plan: MOST LIKELY. CHECK UA AND CULTURE IV ROCEPHIN. CS PENDING. SHE HAS AHD ESBLE BEFORE WITH FULL TREATMENT. CULTURE GRAM NEG BACILLI ID PENDING SHE HAS HAD ESBL BEFORE. MERREM STARTED TODAY. WILL NEED AT LEAST 5 DAYS OF SHE HAS RETENTION OF URINE. STOP OXYBUTIN. SHE IS NOT FULLY VOIDING AND SO WILL GET RECURRENT INFECTIONS. (3) HTN (hypertension) Current Visit: Yes Status: Chronic Plan: ADD CLONIDINE PRN. WILL ADJUST MEDS.
[2023-01-02] MEDS ORDERED: ACETAMINOPHEN 500 MG TAB PO PRN (11:56)
[2023-01-02] MEDS: Meropenem 1,000 MG in NA CHLORIDE 0.9% 100 ML IV SCH (20:06)
[2023-01-02] MEDS: ROSUVASTATIN 10 MG TAB PO SCH (20:15)
[2023-01-02] MEDS: TRAZODONE 50 MG TABLET PO PRN (23:37)
[2023-01-03 03:42] LABS: Absolute Lymphocytes (CBC) 0.8 K/uL (0.7-4.9); Hematocrit 26.1 % (36.0-45.0); Lymphocytes % 13.5 % (15.3-44.8); MCV 85.7 fL (80-100); MPV 9.5 fL (7.6-11.3); RBC Red Blood Cell Count 3.05 M/uL (3.86-4.86)
[2023-01-03 04:09] LABS: Potassium 4.4 mEq/L (3.5-5.1)
[2023-01-03] MEDS: LEVOTHYROXINE SOD 0.112 MG TAB PO SCH (05:32)
[2023-01-03] MEDS: ursodioL 300 MG CAP PO SCH ×2 (07:54→20:36)
[2023-01-03] MEDS: METHENAMINE HIPPURATE 1 GM PO SCH ×3 (07:54→20:49)
[2023-01-03] MEDS: Meropenem 1,000 MG in NA CHLORIDE 0.9% 100 ML IV SCH ×2 (07:54→20:36)
[2023-01-03] MEDS: LOSARTAN POTASSIUM 50 MG TABLET PO SCH (07:55)
[2023-01-03] MEDS: PANTOPRAZOLE 40MG TABLET PO SCH (07:55)
[2023-01-03] MEDS: LIOTHYRONINE SOD 5 MCG TAB PO SCH (07:55)
[2023-01-03] MEDS: PREGABALIN 150 MG CAP PO SCH ×2 (07:55→20:35)
[2023-01-03] MEDS: MONTELUKAST 10 MG TAB PO SCH (07:56)
[2023-01-03] MEDS: HYDRALAZINE HCL 25 MG TABLET PO SCH ×3 (07:56→20:36)
[2023-01-03] MEDS: MAGNESIUM OXIDE 400 MG TAB PO SCH (07:56)
[2023-01-03] MEDS: MEMANTINE HCL 10 MG TABLET PO SCH ×2 (07:56→20:35)
[2023-01-03] MEDS: ASPIRIN EC 81 MG TAB PO SCH (07:56)
[2023-01-03] MEDS: ENOXAPARIN 30 MG/0.3 ML SQ SCH (07:57)
[2023-01-03] MEDS: AMIODARONE HCL 200 MG TAB PO SCH (07:57)
--- NOTE | 2023-01-03 13:08 | P.PN ---
Subjective Date of Service: 01/03/23 Chief Complaint: WEAKNESS Subjective: Improving SHE IF FEELING GREAT NOW. SHE IS ABLE TO AMBULATE. SHE WANTS TO GO HOME BUT SHE IS GROWING BACERIA THAT HAS ONLY TWO ANTIBIOTICS THAT WILL WORK AND ONE SHE CAN'T TAKE SHE IS ON AMIODARONE AND OTHER ONE IS MERREM I WILL GIVE TOTAL 5 DAYS OF IV MERREM AND THEN DISCHARGE HER. SHE WILL SEE FOR RECURRNT UTI. SHE IS LOT BETTER WANTS SLEEPING PILL OR PAIN PILL AT NIGHT. SHE SLEPT WELL WITH TRAZODONE. DOING GOOD TODAY. Physical Examination - Vital Signs Temperature: 96.8 F Blood Pressure: 166/72 Pulse: 60 Respirations: 18 Pulse Ox (%): 94 - Physical Exam General: Alert, In no apparent distress HEENT: Atraumatic, PERRLA, EOMI Neck: Supple, JVD not distended Respiratory: Clear to auscultation bilaterally, Normal air movement Cardiovascular: Regular rate/rhythm, Normal S1 S2 Gastrointestinal: Normal bowel sounds, No tenderness Musculoskeletal: No tenderness Integumentary: No rashes Neurological: Normal speech, Normal tone, Normal affect Lymphatics: No axilla or inguinal lymphadenopathy - Studies Medications List Reviewed: Yes Assessment And Plan - Current Problems (Diagnosis) (1) Dehydration Current Visit: Yes Status: Acute Plan: GENTLE HYDRATIOIN. PT CONSULT AVOID DIURETIC SFOR NOW. IMPROVED WELL. (2) UTI (urinary tract infection) Current Visit: No Status: Acute Plan: SHE HAS RETENTION OF URINE. STOP OXYBUTIN. SHE IS NOT FULLY VOIDING AND SO WILL GET RECURRENT INFECTIONS. I WILL GIVE ABOUT 5 DAYS OF MERREM IV SHE WILL GO HOME AFTER THAT. I WILL REDO CATH CULTURE. (3) HTN (hypertension) Current Visit: Yes Status: Chronic Plan: ADD CLONIDINE PRN. WILL ADJUST MEDS.
[2023-01-03 16:08] LABS: Albumin, (SPE) 3.4 g/dL (3.8-4.8); Alpha-1-Globulins 0.4 g/dL (0.2-0.3); Alpha-2-Globulins 0.7 g/dL (0.5-0.9); Gamma Globulins 0.7 g/dL (0.8-1.7); INTERPRETATION REPORT
[2023-01-03 17:14] LABS: Urine Bacteria None Seen /HPF (<20); Urine Bilirubin NEGATIVE (Negative); Urine Blood Negative (Negative); Urine Clarity Clear (Clear); Urine Color Light-Yellow (Yellow); Urine Glucose NEGATIVE (Negative); Urine Mucus Slight /HPF (None Seen); Urine Protein NEGATIVE (Negative); Urine RBC <5 /HPF (None Seen); Urine Urobilinogen Normal (Normal)
[2023-01-03] MEDS: ROSUVASTATIN 10 MG TAB PO SCH (20:35)
[2023-01-03] MEDS: TRAZODONE 50 MG TABLET PO PRN (23:22)
[2023-01-04 04:00] LABS: Absolute Lymphocytes (CBC) 0.6 K/uL (0.7-4.9); Hematocrit 24.2 % (36.0-45.0); MCV 86.5 fL (80-100); MPV 9.7 fL (7.6-11.3)
[2023-01-04 04:19] LABS: Potassium 4.3 mEq/L (3.5-5.1)
[2023-01-04] MEDS: LEVOTHYROXINE SOD 0.112 MG TAB PO SCH (06:01)
[2023-01-04] MEDS ORDERED: Meropenem 1000 MG/VIAL IV ONE (07:39)
[2023-01-04] MEDS ORDERED: NA CHLORIDE 0.9% 100 ML ONE ×2 (07:40→14:10)
[2023-01-04] MEDS: Meropenem 1,000 MG in NA CHLORIDE 0.9% 100 ML IV SCH ×2 (08:09→21:45)
[2023-01-04] MEDS: ENOXAPARIN 40 MG/0.4 ML SQ SCH (08:09)
[2023-01-04] MEDS: MEMANTINE HCL 10 MG TABLET PO SCH ×2 (08:09→21:45)
[2023-01-04] MEDS: PANTOPRAZOLE 40MG TABLET PO SCH (08:10)
[2023-01-04] MEDS: LOSARTAN POTASSIUM 50 MG TABLET PO SCH (08:10)
[2023-01-04] MEDS: ASPIRIN EC 81 MG TAB PO SCH (08:10)
[2023-01-04] MEDS: MONTELUKAST 10 MG TAB PO SCH (08:10)
[2023-01-04] MEDS: MAGNESIUM OXIDE 400 MG TAB PO SCH (08:10)
[2023-01-04] MEDS: LIOTHYRONINE SOD 5 MCG TAB PO SCH (08:10)
[2023-01-04] MEDS: HYDRALAZINE HCL 25 MG TABLET PO SCH ×3 (08:10→21:59)
[2023-01-04] MEDS: AMIODARONE HCL 200 MG TAB PO SCH (08:10)
[2023-01-04] MEDS: ursodioL 300 MG CAP PO SCH ×2 (08:10→22:01)
[2023-01-04] MEDS: PREGABALIN 150 MG CAP PO SCH ×2 (08:11→21:58)
[2023-01-04] MEDS: METHENAMINE HIPPURATE 1 GM PO SCH ×3 (08:11→21:57)
[2023-01-04] MEDS ORDERED: NA CHLORIDE 0.9% 250 ML ONE (09:30)
--- NOTE | 2023-01-04 21:48 | P.PN ---
Subjective Date of Service: 01/04/23 Chief Complaint: WEAKNESS Subjective: Improving SHE IF FEELING GREAT NOW. SHE IS ABLE TO AMBULATE. SHE WANTS TO GO HOME BUT SHE IS GROWING BACERIA THAT HAS ONLY TWO ANTIBIOTICS THAT WILL WORK AND ONE SHE CAN'T TAKE SHE IS ON AMIODARONE AND OTHER ONE IS MERREM I WILL GIVE TOTAL 5 DAYS OF IV MERREM AND THEN DISCHARGE HER. SHE WILL SEE FOR RECURRNT UTI. SHE IS LOT BETTER WANTS SLEEPING PILL OR PAIN PILL AT NIGHT. SHE SLEPT WELL WITH TRAZODONE. DOING GOOD TODAY. SHE IS WEAKER TODAY AND SLO HER HG IS LOW. SHE HAS NO UTI SYMPTOMS. Review of Systems 10-point ROS is otherwise unremarkable General: Weakness Physical Examination - Vital Signs Temperature: 97.4 F Blood Pressure: 161/47 Pulse: 57 Respirations: 16 Pulse Ox (%): 94 - Physical Exam General: Oriented x3, Mild distress HEENT: Atraumatic, PERRLA, EOMI Neck: Supple, JVD not distended Respiratory: Clear to auscultation bilaterally, Normal air movement Cardiovascular: Regular rate/rhythm, Normal S1 S2 Gastrointestinal: Normal bowel sounds, No tenderness Musculoskeletal: No tenderness Integumentary: No rashes Neurological: Normal speech, Normal tone, Normal affect Lymphatics: No axilla or inguinal lymphadenopathy - Studies Medications List Reviewed: Yes Assessment And Plan - Current Problems (Diagnosis) (1) Dehydration Current Visit: Yes Status: Acute Plan: GENTLE HYDRATIOIN. PT CONSULT AVOID DIURETIC SFOR NOW. IMPROVED WELL. (2) UTI (urinary tract infection) Current Visit: No Status: Acute Plan: SHE HAS RETENTION OF URINE. STOP OXYBUTIN. SHE IS NOT FULLY VOIDING AND SO WILL GET RECURRENT INFECTIONS. I WILL GIVE ABOUT 5 DAYS OF MERREM IV SHE WILL GO HOME AFTER THAT. I WILL REDO CATH CULTURE. (3) HTN (hypertension) Current Visit: Yes Status: Chronic Plan: ADD CLONIDINE PRN. WILL ADJUST MEDS. (4) Anemia Current Visit: Yes Status: Acute Plan: TRANSFUSE TWO UNITS OF PACKED RBCS.
[2023-01-04] MEDS: ROSUVASTATIN 10 MG TAB PO SCH (21:59)
[2023-01-04 23:45] LABS: Hematocrit 31.4 % (36.0-45.0)
[2023-01-05] MEDS: LEVOTHYROXINE SOD 0.112 MG TAB PO SCH (06:22)
[2023-01-05 08:09] LABS: Absolute Lymphocytes (CBC) 0.6 K/uL (0.7-4.9); Hematocrit 30.8 % (36.0-45.0); Lymphocytes % 7.5 % (15.3-44.8); MCV 85.9 fL (80-100); MPV 9.5 fL (7.6-11.3); RBC Red Blood Cell Count 3.59 M/uL (3.86-4.86)
[2023-01-05] MEDS: LIOTHYRONINE SOD 5 MCG TAB PO SCH (08:14)
[2023-01-05] MEDS: Meropenem 1,000 MG in NA CHLORIDE 0.9% 100 ML IV SCH (08:14)
[2023-01-05] MEDS: MONTELUKAST 10 MG TAB PO SCH (08:14)
[2023-01-05] MEDS: ENOXAPARIN 40 MG/0.4 ML SQ SCH (08:14)
[2023-01-05 08:23] LABS: Potassium 4.7 mEq/L (3.5-5.1)
[2023-01-05] MEDS: LOSARTAN POTASSIUM 50 MG TABLET PO SCH (08:23)
[2023-01-05] MEDS: ASPIRIN EC 81 MG TAB PO SCH (08:23)
[2023-01-05] MEDS: HYDRALAZINE HCL 25 MG TABLET PO SCH ×3 (08:23→20:17)
[2023-01-05] MEDS: AMIODARONE HCL 200 MG TAB PO SCH (08:23)
[2023-01-05] MEDS: ursodioL 300 MG CAP PO SCH ×2 (08:23→20:16)
[2023-01-05] MEDS: PREGABALIN 150 MG CAP PO SCH ×2 (08:23→20:16)
[2023-01-05] MEDS: PANTOPRAZOLE 40MG TABLET PO SCH (08:24)
[2023-01-05] MEDS: MAGNESIUM OXIDE 400 MG TAB PO SCH (08:24)
[2023-01-05] MEDS: METHENAMINE HIPPURATE 1 GM PO SCH ×2 (08:24→20:17)
[2023-01-05] MEDS: MEMANTINE HCL 10 MG TABLET PO SCH ×2 (08:24→20:17)
[2023-01-05] MEDS ORDERED: FUROSEMIDE 20 MG/ 2ML VIAL IV ONE ×2 (10:30→11:03)
--- NOTE | 2023-01-05 10:47 | RAD REPORT ---
EXAM DESCRIPTION: RAD - Chest Pa And Lat (2 Views) - 01/05/2023 10:15 am CLINICAL HISTORY: DYSPNEA, FOLLOW UP Chest pain. COMPARISON: Chest Single View dated 12/29/2022; Chest Single View dated 08/15/2022; Chest Single View dated 08/14/2022; Chest Single View dated 08/13/2022 FINDINGS: Moderate left pleural effusion is present. The lungs are emphysematous. The heart is upper limit normal in size. No displaced fractures. Right humeral prosthesis. IMPRESSION: Moderate left pleural effusion.
--- NOTE | 2023-01-05 11:01 | RAD REPORT ---
EXAM DESCRIPTION: CT - Chest For Pe Angio - 01/05/2023 10:36 am CLINICAL HISTORY: Chest pain. HYPOXIA COMPARISON: Chest For Pe Angio dated 08/09/2022 TECHNIQUE: CT angiogram of the pulmonary arteries was performed with MIP. All CT scans are performed using dose optimization technique as appropriate and may include automated exposure control or mA/KV adjustment according to patient size. FINDINGS: No evidence of pulmonary thromboembolism. No acute aortic finding demonstrated. Atelectasis is present in the left lung base. There is [id number] ground-glass opacification bi laterally favored to represent pulmonary edema. Cardiac size is prominent. Small right and small moderate left pleural effusion. No concerning bony finding. IMPRESSION: No evidence of pulmonary thromboembolism. Moderate CHF versus volume overload pattern is favored
--- NOTE | 2023-01-05 12:56 | P.PN ---
Subjective Date of Service: 01/05/23 Chief Complaint: WEAKNESS, SLIGHTLY LOW OXYGEN,FATIGUED Subjective: Worsening SHE IS FEELING WEAKER AND HAS TWITCHES OF BODY INVOLUNTARY. SHE HAS NO PAIN. Review of Systems 10-point ROS is otherwise unremarkable General: Weakness Respiratory: Shortness of Breath Physical Examination - Vital Signs Temperature: 97.1 F Blood Pressure: 119/60 Pulse: 59 Respirations: 14 Pulse Ox (%): 96 - Physical Exam General: Alert, Oriented x3, Mild distress HEENT: Atraumatic, PERRLA, EOMI Neck: Supple, JVD not distended Respiratory: Clear to auscultation bilaterally, Normal air movement Cardiovascular: Regular rate/rhythm, Normal S1 S2 Gastrointestinal: Normal bowel sounds, No tenderness Musculoskeletal: No tenderness Integumentary: No rashes Neurological: Normal speech, Normal tone, Normal affect Lymphatics: No axilla or inguinal lymphadenopathy - Studies Medications List Reviewed: Yes Assessment And Plan - Current Problems (Diagnosis) (1) Dehydration Current Visit: Yes Status: Acute Plan: GENTLE HYDRATIOIN. PT CONSULT AVOID DIURETIC SFOR NOW. IMPROVED WELL. RESOLVED NOW. IV HAS BEEN STOPPED. (2) UTI (urinary tract infection) Current Visit: No Status: Acute Plan: CULTURE IS NEGATIVE NOW. I HAD TO STOP MERREM SHE HAS TWITCHES AND MERREM HAS NEUROLOGICAL SE. URINE IS CLEAN NOW AND WILL HAVE TO DO WITHOUT ABX ONLY TWO ABX WERE EFFECTIVE AND ONE SHE CAN'T TAKE SHE TAKES AMIODARONE. (3) HTN (hypertension) Current Visit: Yes Status: Chronic Plan: ADD CLONIDINE PRN. WILL ADJUST MEDS. (4) Anemia Current Visit: Yes Status: Acute Plan: TRANSFUSE TWO UNITS OF PACKED RBCS. (5) Hypoxia Current Visit: Yes Status: Acute Plan: LASIX IV BID. KCL PO PLEURAL EFFUSION. SHOULD IMPORVE. CT ANGIO NEG FOR PE. ECHO ORDERED. (6) Acute diastolic (congestive) heart failure Current Visit: Yes Status: Acute Plan: SHE WENT FROM DEHDYRATION TO CHF EVEN AFTER GENTLE HYDRATION. WILL FU DAILY.
[2023-01-05] MEDS: FUROSEMIDE 20 MG/ 2ML VIAL IV SCH (17:05)
[2023-01-05] MEDS: ROSUVASTATIN 10 MG TAB PO SCH (20:15)
[2023-01-05] MEDS: levETIRAcetam 500 MG TAB PO SCH (20:16)
[2023-01-06 03:48] LABS: Absolute Lymphocytes (CBC) 0.8 K/uL (0.7-4.9); Hematocrit 30.6 % (36.0-45.0); Lymphocytes % 13.2 % (15.3-44.8); MCV 86.1 fL (80-100); MPV 9.5 fL (7.6-11.3); RBC Red Blood Cell Count 3.56 M/uL (3.86-4.86)
[2023-01-06 03:55] LABS: Potassium 4.1 mEq/L (3.5-5.1)
[2023-01-06] MEDS: LEVOTHYROXINE SOD 0.112 MG TAB PO SCH (05:48)
[2023-01-06] MEDS: POTASSIUM CL SA 10 MEQ TAB PO SCH (08:52)
[2023-01-06] MEDS: HYDRALAZINE HCL 25 MG TABLET PO SCH ×3 (08:52→21:04)
[2023-01-06] MEDS: ursodioL 300 MG CAP PO SCH ×2 (08:53→21:05)
[2023-01-06] MEDS: LOSARTAN POTASSIUM 50 MG TABLET PO SCH (08:53)
[2023-01-06] MEDS: MEMANTINE HCL 10 MG TABLET PO SCH ×2 (08:53→21:05)
[2023-01-06] MEDS: levETIRAcetam 500 MG TAB PO SCH ×2 (08:53→21:06)
[2023-01-06] MEDS: PANTOPRAZOLE 40MG TABLET PO SCH (08:53)
[2023-01-06] MEDS: AMIODARONE HCL 200 MG TAB PO SCH (08:54)
[2023-01-06] MEDS: LIOTHYRONINE SOD 5 MCG TAB PO SCH (08:54)
[2023-01-06] MEDS: ASPIRIN EC 81 MG TAB PO SCH (08:54)
[2023-01-06] MEDS: PREGABALIN 150 MG CAP PO SCH ×2 (08:54→21:06)
[2023-01-06] MEDS: MAGNESIUM OXIDE 400 MG TAB PO SCH (08:54)
[2023-01-06] MEDS: MONTELUKAST 10 MG TAB PO SCH (08:54)
[2023-01-06] MEDS: ENOXAPARIN 40 MG/0.4 ML SQ SCH (08:55)
[2023-01-06] MEDS: FUROSEMIDE 20 MG/ 2ML VIAL IV SCH ×2 (08:55→16:53)
[2023-01-06] MEDS: METHENAMINE HIPPURATE 1 GM PO SCH ×2 (08:56→21:00)
[2023-01-06] MEDS: ROSUVASTATIN 10 MG TAB PO SCH (21:05)
--- NOTE | 2023-01-06 21:11 | P.PN ---
Subjective Date of Service: 01/06/23 Chief Complaint: WEAKNESS, SLIGHTLY LOW OXYGEN,FATIGUED Subjective: Improving SHE IS FEELING WEAKER AND HAS TWITCHES OF BODY INVOLUNTARY. SHE HAS NO PAIN. SHE IS SOME BETTER THAN YESTERDAY. S STILL TWITCHES SOME. Review of Systems 10-point ROS is otherwise unremarkable Physical Examination - Vital Signs Temperature: 96.7 F Blood Pressure: 133/47 Pulse: 59 Respirations: 16 Pulse Ox (%): 93 - Physical Exam General: Oriented x3, Acute distress, Mild distress HEENT: Atraumatic, PERRLA, EOMI Neck: Supple, JVD not distended Respiratory: Clear to auscultation bilaterally, Normal air movement Cardiovascular: Regular rate/rhythm, Normal S1 S2 Gastrointestinal: Normal bowel sounds, No tenderness Musculoskeletal: No tenderness Integumentary: No rashes Neurological: Normal speech, Normal tone, Normal affect Lymphatics: No axilla or inguinal lymphadenopathy - Studies Medications List Reviewed: Yes Assessment And Plan - Current Problems (Diagnosis) (1) Dehydration Current Visit: Yes Status: Resolved Plan: GENTLE HYDRATIOIN. PT CONSULT AVOID DIURETIC SFOR NOW. IMPROVED WELL. RESOLVED NOW. IV HAS BEEN STOPPED. (2) UTI (urinary tract infection) Current Visit: No Status: Resolved Plan: CULTURE IS NEGATIVE NOW. I HAD TO STOP MERREM SHE HAS TWITCHES AND MERREM HAS NEUROLOGICAL SE. URINE IS CLEAN NOW AND WILL HAVE TO DO WITHOUT ABX ONLY TWO ABX WERE EFFECTIVE AND ONE SHE CAN'T TAKE SHE TAKES AMIODARONE. (3) HTN (hypertension) Current Visit: Yes Status: Chronic Plan: ADD CLONIDINE PRN. WILL ADJUST MEDS. (4) Anemia Current Visit: Yes Status: Acute Plan: TRANSFUSE TWO UNITS OF PACKED RBCS. (5) Hypoxia Current Visit: Yes Status: Acute Plan: LASIX IV BID. KCL PO PLEURAL EFFUSION. SHOULD IMPORVE. CT ANGIO NEG FOR PE. ECHO ORDERED. (6) Acute diastolic (congestive) heart failure Current Visit: Yes Status: Acute Plan: SHE WENT FROM DEHDYRATION TO CHF EVEN AFTER GENTLE HYDRATION. WILL FU DAILY. IMPROVED CLNICALLY SHE IS NOT ABLE TO STAY EUVOLEMIC. WITH CREATININE HIGHER THAN NORMAL SHE STARTED GO GET CHF. (7) Myoclonia Current Visit: Yes Status: Acute Plan: THIS CAN BE REACTION TO [facility]ERRREM IT CAN AFFECT NERVOUS SYSTEM. I STOPPED IT NOW THAT [facility] IS NEGATIVE STARTED [facility] AND IT MAY WORK.
[2023-01-07 03:46] LABS: Absolute Lymphocytes (CBC) 0.8 K/uL (0.7-4.9); Hematocrit 31.5 % (36.0-45.0); Lymphocytes % 12.7 % (15.3-44.8); MCV 85.5 fL (80-100); MPV 9.6 fL (7.6-11.3); RBC Red Blood Cell Count 3.68 M/uL (3.86-4.86)
[2023-01-07 03:50] LABS: Potassium 3.8 mEq/L (3.5-5.1)
[2023-01-07] MEDS: LEVOTHYROXINE SOD 0.112 MG TAB PO SCH (06:21)
[2023-01-07] MEDS: ENOXAPARIN 40 MG/0.4 ML SQ SCH (08:38)
[2023-01-07] MEDS: MEMANTINE HCL 10 MG TABLET PO SCH ×2 (08:39→22:34)
[2023-01-07] MEDS: HYDRALAZINE HCL 25 MG TABLET PO SCH ×3 (08:39→22:33)
[2023-01-07] MEDS: LOSARTAN POTASSIUM 50 MG TABLET PO SCH (08:40)
[2023-01-07] MEDS: ASPIRIN EC 81 MG TAB PO SCH (08:40)
[2023-01-07] MEDS: POTASSIUM CL SA 10 MEQ TAB PO SCH (08:40)
[2023-01-07] MEDS: levETIRAcetam 500 MG TAB PO SCH ×2 (08:40→22:34)
[2023-01-07] MEDS: MAGNESIUM OXIDE 400 MG TAB PO SCH (08:41)
[2023-01-07] MEDS: LIOTHYRONINE SOD 5 MCG TAB PO SCH (08:41)
[2023-01-07] MEDS: AMIODARONE HCL 200 MG TAB PO SCH (08:41)
[2023-01-07] MEDS: PREGABALIN 150 MG CAP PO SCH ×2 (08:41→22:34)
[2023-01-07] MEDS: MONTELUKAST 10 MG TAB PO SCH (08:41)
[2023-01-07] MEDS: FUROSEMIDE 20 MG/ 2ML VIAL IV SCH (08:42)
[2023-01-07] MEDS: PANTOPRAZOLE 40MG TABLET PO SCH (08:42)
[2023-01-07] MEDS: METHENAMINE HIPPURATE 1 GM PO SCH ×2 (08:43→22:36)
[2023-01-07] MEDS: ursodioL 300 MG CAP PO SCH ×2 (08:51→22:33)
--- NOTE | 2023-01-07 16:29 | P.PN ---
Subjective Date of Service: 01/07/23 Chief Complaint: IMPROVED, STILL WEAK. Subjective: Improving SHE IS FEELING WEAKER AND HAS TWITCHES OF BODY INVOLUNTARY. SHE HAS NO PAIN. SHE IS SOME BETTER THAN YESTERDAY. S STILL TWITCHES SOME. GRACIELA LIVES ALONE. THERE IS NO FAMILY AROUND. SHE IS WEAK AND NEEDS TO BE AT SNIF. OR NH. Physical Examination - Vital Signs Temperature: 96.8 F Blood Pressure: 138/61 Pulse: 55 Respirations: 18 Pulse Ox (%): 96 - Physical Exam General: In no apparent distress HEENT: Atraumatic, PERRLA, EOMI Neck: Supple, JVD not distended Respiratory: Clear to auscultation bilaterally, Normal air movement Cardiovascular: Regular rate/rhythm, Normal S1 S2 Gastrointestinal: Normal bowel sounds, No tenderness Musculoskeletal: No tenderness Integumentary: No rashes Neurological: Normal speech, Normal tone, Normal affect Lymphatics: No axilla or inguinal lymphadenopathy - Studies Medications List Reviewed: Yes Assessment And Plan - Current Problems (Diagnosis) (1) Dehydration Current Visit: Yes Status: Resolved Plan: GENTLE HYDRATIOIN. PT CONSULT AVOID DIURETIC SFOR NOW. IMPROVED WELL. RESOLVED NOW. IV HAS BEEN STOPPED. (2) UTI (urinary tract infection) Current Visit: No Status: Resolved Plan: CULTURE IS NEGATIVE NOW. I HAD TO STOP MERREM SHE HAS TWITCHES AND MERREM HAS NEUROLOGICAL SE. URINE IS CLEAN NOW AND WILL HAVE TO DO WITHOUT ABX ONLY TWO ABX WERE EFFECTIVE AND ONE SHE CAN'T TAKE SHE TAKES AMIODARONE. (3) HTN (hypertension) Current Visit: Yes Status: Chronic Plan: ADD CLONIDINE PRN. WILL ADJUST MEDS. (4) Anemia Current Visit: Yes Status: Acute Plan: TRANSFUSE TWO UNITS OF PACKED RBCS. SHE KNOWS TO HAVE GI WORK UP AFTER DISCHARGE. THERE IS NO GI DOCTOR HERE. (5) Hypoxia Current Visit: Yes Status: Acute Plan: LASIX IV BID. KCL PO PLEURAL EFFUSION. SHOULD IMPORVE. CT ANGIO NEG FOR PE. ECHO ORDERED. (6) Acute diastolic (congestive) heart failure Current Visit: Yes Status: Acute Plan: SHE WENT FROM DEHDYRATION TO CHF EVEN AFTER GENTLE HYDRATION. WILL FU DAILY. IMPROVED CLNICALLY SHE IS NOT ABLE TO STAY EUVOLEMIC. WITH CREATININE HIGHER THAN NORMAL SHE STARTED GO GET CHF. IMPROVED SOME CONT PT. (7) Myoclonia Current Visit: Yes Status: Acute Plan: THIS CAN BE REACTION TO [facility] IT CAN AFFECT NERVOUS SYSTEM. I STOPPED IT NOW THAT [facility] IS NEGATIVE STARTED [facility] AND IT MAY WORK.
[2023-01-07] MEDS: ROSUVASTATIN 10 MG TAB PO SCH (22:34)
[2023-01-08 03:15] LABS: Absolute Lymphocytes (CBC) 0.7 K/uL (0.7-4.9); Hematocrit 31.7 % (36.0-45.0); MCV 86.2 fL (80-100); MPV 9.6 fL (7.6-11.3); RBC Red Blood Cell Count 3.67 M/uL (3.86-4.86)
[2023-01-08 03:37] LABS: Potassium 4.3 mEq/L (3.5-5.1)
[2023-01-08] MEDS: LEVOTHYROXINE SOD 0.112 MG TAB PO SCH (05:32)
[2023-01-08] MEDS: ENOXAPARIN 40 MG/0.4 ML SQ SCH (07:58)
[2023-01-08] MEDS: MAGNESIUM OXIDE 400 MG TAB PO SCH (07:58)
[2023-01-08] MEDS: HYDRALAZINE HCL 25 MG TABLET PO SCH ×3 (07:58→21:16)
[2023-01-08] MEDS: LIOTHYRONINE SOD 5 MCG TAB PO SCH (07:58)
[2023-01-08] MEDS: levETIRAcetam 500 MG TAB PO SCH ×2 (07:59→21:16)
[2023-01-08] MEDS: LOSARTAN POTASSIUM 50 MG TABLET PO SCH (07:59)
[2023-01-08] MEDS: MONTELUKAST 10 MG TAB PO SCH (07:59)
[2023-01-08] MEDS: PREGABALIN 150 MG CAP PO SCH ×2 (07:59→21:16)
[2023-01-08] MEDS: POTASSIUM CL SA 10 MEQ TAB PO SCH (07:59)
[2023-01-08] MEDS: PANTOPRAZOLE 40MG TABLET PO SCH (07:59)
[2023-01-08] MEDS: ASPIRIN EC 81 MG TAB PO SCH (07:59)
[2023-01-08] MEDS: AMIODARONE HCL 200 MG TAB PO SCH (08:00)
[2023-01-08] MEDS: MEMANTINE HCL 10 MG TABLET PO SCH ×2 (08:00→21:15)
[2023-01-08] MEDS: ursodioL 300 MG CAP PO SCH ×2 (08:00→21:13)
[2023-01-08] MEDS: METHENAMINE HIPPURATE 1 GM PO SCH ×2 (08:01→21:12)
[2023-01-08] MEDS ORDERED: FUROSEMIDE 20 MG/ 2ML VIAL IV SCH (09:00)
[2023-01-08] MEDS: GUAIFENESIN/DM 5 ML UCUP PO PRN (10:00)
--- NOTE | 2023-01-08 16:26 | P.PN ---
Subjective Date of Service: 01/08/23 Chief Complaint: IMPROVED, STILL WEAK. Subjective: Improving SOME COUGH. FEELS BETTER TODAY. NOT DOING PT YET. I TALKED TO CHARGE NURSE TO GET PT STAFF IN HER ROOM. Physical Examination - Vital Signs Temperature: 96.8 F Blood Pressure: 140/56 Pulse: 58 Respirations: 16 Pulse Ox (%): 96 - Physical Exam General: Mild distress (GEN WEAK, CAN), Obese (GEN WEAK.) HEENT: Atraumatic, PERRLA, EOMI Neck: Supple, JVD not distended Respiratory: Clear to auscultation bilaterally, Normal air movement Cardiovascular: Regular rate/rhythm, Normal S1 S2 Gastrointestinal: Normal bowel sounds, No tenderness Musculoskeletal: No tenderness Integumentary: No rashes Neurological: Normal speech, Normal tone, Normal affect Lymphatics: No axilla or inguinal lymphadenopathy - Studies Medications List Reviewed: Yes Assessment And Plan - Current Problems (Diagnosis) (1) Dehydration Current Visit: Yes Status: Resolved Plan: GENTLE HYDRATIOIN. PT CONSULT AVOID DIURETIC SFOR NOW. IMPROVED WELL. RESOLVED NOW. IV HAS BEEN STOPPED. (2) UTI (urinary tract infection) Current Visit: No Status: Resolved Plan: CULTURE IS NEGATIVE NOW. I HAD TO STOP MERREM SHE HAS TWITCHES AND MERREM HAS NEUROLOGICAL SE. URINE IS CLEAN NOW AND WILL HAVE TO DO WITHOUT ABX ONLY TWO ABX WERE EFFECTIVE AND ONE SHE CAN'T TAKE SHE TAKES AMIODARONE. (3) HTN (hypertension) Current Visit: Yes Status: Chronic Plan: ADD CLONIDINE PRN. WILL ADJUST MEDS. (4) Anemia Current Visit: Yes Status: Acute Plan: TRANSFUSE TWO UNITS OF PACKED RBCS. SHE KNOWS TO HAVE GI WORK UP AFTER DISCHARGE. THERE IS NO GI DOCTOR HERE. (5) Hypoxia Current Visit: Yes Status: Acute Plan: LASIX IV BID. KCL PO PLEURAL EFFUSION. SHOULD IMPORVE. CT ANGIO NEG FOR PE. ECHO ORDERED. (6) Acute diastolic (congestive) heart failure Current Visit: Yes Status: Acute Plan: SHE WENT FROM DEHDYRATION TO CHF EVEN AFTER GENTLE HYDRATION. WILL FU DAILY. IMPROVED CLNICALLY SHE IS NOT ABLE TO STAY EUVOLEMIC. WITH CREATININE HIGHER THAN NORMAL SHE STARTED GO GET CHF. IMPROVED SOME CONT PT. IMPROVED WELL. CONT GENTLE DIURETIC STABLE. DAILY LAB. (7) Myoclonia Current Visit: Yes Status: Acute Plan: THIS CAN BE REACTION TO [facility] IT CAN AFFECT NERVOUS SYSTEM. I STOPPED IT NOW THAT [facility] IS NEGATIVE STARTED [facility] AND IT MAY WORK.
[2023-01-08] MEDS: ROSUVASTATIN 10 MG TAB PO SCH (21:14)
[2023-01-09] MEDS: GUAIFENESIN/DM 5 ML UCUP PO PRN ×3 (02:00→21:28)
[2023-01-09 03:18] LABS: Absolute Lymphocytes (CBC) 0.8 K/uL (0.7-4.9); Hematocrit 33.5 % (36.0-45.0); Lymphocytes % 13.4 % (15.3-44.8); MCV 86.5 fL (80-100); MPV 9.5 fL (7.6-11.3); RBC Red Blood Cell Count 3.87 M/uL (3.86-4.86)
[2023-01-09 03:28] LABS: Potassium 4.5 mEq/L (3.5-5.1)
[2023-01-09] MEDS: LEVOTHYROXINE SOD 0.112 MG TAB PO SCH (05:38)
[2023-01-09] MEDS: HYDRALAZINE HCL 25 MG TABLET PO SCH ×3 (07:51→21:32)
[2023-01-09] MEDS: POTASSIUM CL SA 10 MEQ TAB PO SCH (07:52)
[2023-01-09] MEDS: ENOXAPARIN 40 MG/0.4 ML SQ SCH (07:52)
[2023-01-09] MEDS: LIOTHYRONINE SOD 5 MCG TAB PO SCH (07:52)
[2023-01-09] MEDS: MONTELUKAST 10 MG TAB PO SCH (07:52)
[2023-01-09] MEDS: MAGNESIUM OXIDE 400 MG TAB PO SCH (07:52)
[2023-01-09] MEDS: PANTOPRAZOLE 40MG TABLET PO SCH (07:52)
[2023-01-09] MEDS: MEMANTINE HCL 10 MG TABLET PO SCH ×2 (07:53→21:31)
[2023-01-09] MEDS: AMIODARONE HCL 200 MG TAB PO SCH (07:53)
[2023-01-09] MEDS: ASPIRIN EC 81 MG TAB PO SCH (07:53)
[2023-01-09] MEDS: LOSARTAN POTASSIUM 50 MG TABLET PO SCH (07:53)
[2023-01-09] MEDS: PREGABALIN 150 MG CAP PO SCH ×2 (07:53→21:35)
[2023-01-09] MEDS: ursodioL 300 MG CAP PO SCH ×2 (07:54→21:29)
[2023-01-09] MEDS: METHENAMINE HIPPURATE 1 GM PO SCH ×2 (07:54→21:33)
[2023-01-09] MEDS: levETIRAcetam 500 MG TAB PO SCH ×2 (07:54→21:30)
[2023-01-09] MEDS ORDERED: FUROSEMIDE 20 MG TABLET PO SCH (09:00)
[2023-01-09] MEDS: ROSUVASTATIN 10 MG TAB PO SCH (21:29)
[2023-01-09] MEDS ORDERED: ACETAMINOPHEN 500 MG TAB PO PRN (21:46)
[2023-01-09] MEDS ORDERED: TRAZODONE 50 MG TABLET PO PRN (21:47)
--- NOTE | 2023-01-09 21:49 | P.PN ---
Subjective Date of Service: 01/09/23 Chief Complaint: LOT BETTER TODAY. Subjective: Improving SHE SAYS PT HAS NOT COME YET TO HER ROOM SHE IS BETTER. Physical Examination - Vital Signs Temperature: 96.2 F Blood Pressure: 103/47 Pulse: 51 Respirations: 16 Pulse Ox (%): 94 - Physical Exam General: Oriented x3, Mild distress HEENT: Atraumatic, PERRLA, EOMI Neck: Supple, JVD not distended Respiratory: Clear to auscultation bilaterally, Normal air movement Cardiovascular: Regular rate/rhythm, Normal S1 S2 Gastrointestinal: Normal bowel sounds, No tenderness Musculoskeletal: No tenderness Integumentary: No rashes Neurological: Normal speech, Normal tone, Normal affect Lymphatics: No axilla or inguinal lymphadenopathy - Studies Medications List Reviewed: Yes Assessment And Plan - Current Problems (Diagnosis) (1) Dehydration Current Visit: Yes Status: Resolved Plan: GENTLE HYDRATIOIN. PT CONSULT AVOID DIURETIC SFOR NOW. IMPROVED WELL. RESOLVED NOW. IV HAS BEEN STOPPED. (2) UTI (urinary tract infection) Current Visit: No Status: Resolved Plan: CULTURE IS NEGATIVE NOW. I HAD TO STOP MERREM SHE HAS TWITCHES AND MERREM HAS NEUROLOGICAL SE. URINE IS CLEAN NOW AND WILL HAVE TO DO WITHOUT ABX ONLY TWO ABX WERE EFFECTIVE AND ONE SHE CAN'T TAKE SHE TAKES AMIODARONE. (3) HTN (hypertension) Current Visit: Yes Status: Chronic Plan: ADD CLONIDINE PRN. WILL ADJUST MEDS. (4) Anemia Current Visit: Yes Status: Acute Plan: TRANSFUSE TWO UNITS OF PACKED RBCS. SHE KNOWS TO HAVE GI WORK UP AFTER DISCHARGE. THERE IS NO GI DOCTOR HERE. (5) Hypoxia Current Visit: Yes Status: Acute Plan: LASIX IV BID. KCL PO PLEURAL EFFUSION. SHOULD IMPORVE. CT ANGIO NEG FOR PE. ECHO ORDERED. (6) Acute diastolic (congestive) heart failure Current Visit: Yes Status: Acute Plan: LOT BETTER CONTINUE LASIX ORAL REDUCED DOSE CREAT RISED. (7) Myoclonia Current Visit: Yes Status: Acute Plan: THIS CAN BE REACTION TO [facility] IT CAN AFFECT NERVOUS SYSTEM. I STOPPED IT NOW THAT [facility] IS NEGATIVE STARTED [facility] AND IT MAY WORK.
[2023-01-10 03:37] LABS: Absolute Lymphocytes (CBC) 0.8 K/uL (0.7-4.9); Hematocrit 30.3 % (36.0-45.0); Lymphocytes % 15.8 % (15.3-44.8); MCV 86.6 fL (80-100); MPV 9.4 fL (7.6-11.3)
[2023-01-10 03:55] LABS: Potassium 4.5 mEq/L (3.5-5.1)
[2023-01-10] MEDS: LEVOTHYROXINE SOD 0.112 MG TAB PO SCH (05:16)
[2023-01-10] MEDS: MAGNESIUM OXIDE 400 MG TAB PO SCH (08:46)
[2023-01-10] MEDS: POTASSIUM CL SA 10 MEQ TAB PO SCH (08:46)
[2023-01-10] MEDS: FUROSEMIDE 20 MG TABLET PO SCH (08:47)
[2023-01-10] MEDS: LOSARTAN POTASSIUM 50 MG TABLET PO SCH (08:47)
[2023-01-10] MEDS: HYDRALAZINE HCL 25 MG TABLET PO SCH ×3 (08:47→20:38)
[2023-01-10] MEDS: ASPIRIN EC 81 MG TAB PO SCH (08:47)
[2023-01-10] MEDS: LIOTHYRONINE SOD 5 MCG TAB PO SCH (08:47)
[2023-01-10] MEDS: PANTOPRAZOLE 40MG TABLET PO SCH (08:49)
[2023-01-10] MEDS: PREGABALIN 150 MG CAP PO SCH ×2 (08:49→20:39)
[2023-01-10] MEDS: ursodioL 300 MG CAP PO SCH ×2 (08:49→20:38)
[2023-01-10] MEDS: MEMANTINE HCL 10 MG TABLET PO SCH ×2 (08:49→20:39)
[2023-01-10] MEDS: levETIRAcetam 500 MG TAB PO SCH ×2 (08:50→20:39)
[2023-01-10] MEDS: AMIODARONE HCL 200 MG TAB PO SCH (08:50)
[2023-01-10] MEDS: METHENAMINE HIPPURATE 1 GM PO SCH ×2 (08:51→20:40)
[2023-01-10] MEDS: MONTELUKAST 10 MG TAB PO SCH (08:51)
[2023-01-10] MEDS: ROSUVASTATIN 10 MG TAB PO SCH (20:38)
--- NOTE | 2023-01-10 21:41 | P.PN ---
Subjective Date of Service: 01/10/23 Chief Complaint: LOT BETTER TODAY. Subjective: Improving SHE SAYS PT HAS NOT COME YET TO HER ROOM SHE IS BETTER. SHE IS ABLE TO WALK. SHE KNOWS THAT SHE WILL NOT QUALIFY FOR SNIF OR REHAB SHE IS ABLE WALK LOT BETTER NOW. Review of Systems 10-point ROS is otherwise unremarkable General: Weakness Physical Examination - Vital Signs Temperature: 96.8 F Blood Pressure: 163/61 Pulse: 48 Respirations: 17 Pulse Ox (%): 99 - Physical Exam General: Oriented x3, Mild distress HEENT: Atraumatic, PERRLA, EOMI Neck: Supple, JVD not distended Respiratory: Clear to auscultation bilaterally, Normal air movement Cardiovascular: Regular rate/rhythm, Normal S1 S2 Gastrointestinal: Normal bowel sounds, No tenderness Musculoskeletal: No tenderness Integumentary: No rashes Neurological: Normal speech, Normal tone, Normal affect Lymphatics: No axilla or inguinal lymphadenopathy - Studies Medications List Reviewed: Yes Assessment And Plan - Current Problems (Diagnosis) (1) Dehydration Current Visit: Yes Status: Resolved Plan: GENTLE HYDRATIOIN. PT CONSULT AVOID DIURETIC SFOR NOW. IMPROVED WELL. RESOLVED NOW. IV HAS BEEN STOPPED. GENTLE LASIX IS NEEDED SHE GOES INTO CHF WITHOUT (2) UTI (urinary tract infection) Current Visit: No Status: Resolved Plan: CULTURE IS NEGATIVE NOW. I HAD TO STOP MERREM SHE HAS TWITCHES AND MERREM HAS NEUROLOGICAL SE. URINE IS CLEAN NOW AND WILL HAVE TO DO WITHOUT ABX ONLY TWO ABX WERE EFFECTIVE AND ONE SHE CAN'T TAKE SHE TAKES AMIODARONE. (3) HTN (hypertension) Current Visit: Yes Status: Chronic Plan: ADD CLONIDINE PRN. WILL ADJUST MEDS. (4) Anemia Current Visit: Yes Status: Acute Plan: TRANSFUSE TWO UNITS OF PACKED RBCS. SHE KNOWS TO HAVE GI WORK UP AFTER DISCHARGE. THERE IS NO GI DOCTOR HERE. (5) Hypoxia Current Visit: Yes Status: Acute Plan: LASIX IV BID. KCL PO PLEURAL EFFUSION. SHOULD IMPORVE. CT ANGIO NEG FOR PE. ECHO ORDERED. (6) Acute diastolic (congestive) heart failure Current Visit: Yes Status: Acute Plan: LOT BETTER CONTINUE LASIX ORAL REDUCED DOSE CREAT RISED. (7) Myoclonia Current Visit: Yes Status: Acute Plan: THIS CAN BE REACTION TO [facility] IT CAN AFFECT NERVOUS SYSTEM. I STOPPED IT NOW THAT [facility] IS NEGATIVE STARTED [facility] AND IT MAY WORK.
[2023-01-11 03:37] LABS: Absolute Lymphocytes (CBC) 0.8 K/uL (0.7-4.9); Hematocrit 30.6 % (36.0-45.0); MCV 87.3 fL (80-100); MPV 9.6 fL (7.6-11.3); RBC Red Blood Cell Count 3.51 M/uL (3.86-4.86)
[2023-01-11 04:15] LABS: Potassium 4.7 mEq/L (3.5-5.1)
[2023-01-11 04:52] VITALS: TEMP 97
[2023-01-11] MEDS: LEVOTHYROXINE SOD 0.112 MG TAB PO SCH (06:10)
[2023-01-11 08:59] VITALS: BP 139/55
[2023-01-11] MEDS: LOSARTAN POTASSIUM 50 MG TABLET PO SCH (09:14)
[2023-01-11] MEDS: POTASSIUM CL SA 10 MEQ TAB PO SCH (09:14)
[2023-01-11] MEDS: ursodioL 300 MG CAP PO SCH (09:14)
[2023-01-11] MEDS: MAGNESIUM OXIDE 400 MG TAB PO SCH (09:15)
[2023-01-11] MEDS: MONTELUKAST 10 MG TAB PO SCH (09:15)
[2023-01-11] MEDS: MEMANTINE HCL 10 MG TABLET PO SCH (09:15)
[2023-01-11] MEDS: FUROSEMIDE 20 MG TABLET PO SCH (09:15)
[2023-01-11] MEDS: levETIRAcetam 500 MG TAB PO SCH (09:15)
[2023-01-11] MEDS: PREGABALIN 150 MG CAP PO SCH (09:15)
[2023-01-11] MEDS: ASPIRIN EC 81 MG TAB PO SCH (09:16)
[2023-01-11] MEDS: HYDRALAZINE HCL 25 MG TABLET PO SCH (09:16)
[2023-01-11] MEDS: AMIODARONE HCL 200 MG TAB PO SCH (09:16)
[2023-01-11] MEDS: METHENAMINE HIPPURATE 1 GM PO SCH (09:16)
[2023-01-11] MEDS: LIOTHYRONINE SOD 5 MCG TAB PO SCH (09:16)
[2023-01-11] MEDS: PANTOPRAZOLE 40MG TABLET PO SCH (09:16)
[2023-01-11 09:37] VITALS: O2SAT 97
--- NOTE | 2023-01-11 13:00 | P.DS ---
Admission Date: 12/29/22 Discharge Date: 01/11/23 Disposition: DC HOME/HOME HEALTH CARE Discharge Condition: FAIR Reason for Admission: LOT BETTER TODAY. - Problems (1) Dehydration Status: Resolved (2) UTI (urinary tract infection) Status: Resolved (3) HTN (hypertension) Status: Chronic (4) Anemia Status: Acute (5) Hypoxia Status: Acute (6) Acute diastolic (congestive) heart failure Status: Acute (7) Myoclonia Status: Acute Brief History of Present Illness: GRACIELA IS GETTING WEAKER OVER LAST ONE WEEK ADBernarda WAS BROUGHT TO ER. SHE HAS NO PAIN. NO BURNING AT URINATION. SHE HAS HISTORY OF UTIS, HTN, CFH ETC. Hospital Course: GRACIELA COMES WITH CONFUSION, OBTUNDATION, WAS FOUND TO HAVE DEHYDRATION WITH CREAT IN 2.0S, UTI AND IMPROVED ON IV ABX AND IV FLUIDS. LATER UTI WAS FOUND TO BE RESISTANT TO ROCEPHIN SO I CHANGED MEDS TO MERREM. SHE DID WELL BUT DEVELOPED TWITCHING. MERREM MAY HAVE SS OF NEUROLOGICAL SYSTEM SO I STOPPED IT. HER URINE I SNOW CLEAR BUT BEFORE SHE GETS EUVOLEMIC SHE STARTED TO HAVE CHF SS. I STOPPED IV FLUIDS AND PUT HER ON LASIX. SHE HAS TORSEMIDE AT HOME THAT SHE WILL CONTINUE. 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 FU IN OFFICE. Vital Signs/Physical Exam: Temp Pulse Resp BP Pulse Ox 97.0 F 47 L 19 139/55 L 97 01/11/23 04:00 01/11/23 09:15 01/11/23 08:00 01/11/23 09:15 01/11/23 08:00 Laboratory Data at Discharge: WBC 6.00 thou/uL (4.3-10.9) 01/11/23 03:13 Hgb 10.1 g/dL (12.0-15.0) L 01/11/23 03:13 Hct 30.6 % (36.0-45.0) L 01/11/23 03:13 Plt Count 115 thou/uL (152-406) L 01/11/23 03:13 PT 11.1 SECONDS (9.5-12.5) 12/29/22 12:57 INR 1.01 12/29/22 12:57 APTT 32.8 SECONDS (24.3-36.9) 12/29/22 12:57 Sodium 136 mEq/L (136-145) 01/11/23 03:13 Potassium 4.7 mEq/L (3.5-5.1) 01/11/23 03:13 BUN 59 mg/dL (7-18) H 01/11/23 03:13 Creatinine 1.37 mg/dL (0.55-1.02) H 01/11/23 03:13 Glucose 74 mg/dL (74-106) 01/11/23 03:13 Magnesium 2.7 mg/dL (1.6-2.4) H 12/29/22 12:57 Total Bilirubin 0.3 mg/dL (0.2-1.0) 12/29/22 12:57 AST 31 U/L (15-37) 12/29/22 12:57 ALT 32 U/L (13-56) 12/29/22 12:57 Alkaline Phosphatase 68 U/L (45-117) 12/29/22 12:57 Home Medications: Liothyronine Sodium [Cytomel] 5 mcg PO DAILY 01/01/21 ursodioL [Ursodiol] 300 mg PO BID 01/01/21 Pregabalin [Lyrica*] 150 mg PO BID 02/19/21 Rabeprazole Sodium 20 mg PO DAILY 10/06/21 Levothyroxine [Synthroid*] 112 mcg PO [id number] 05/25/22 Rosuvastatin [Crestor*] 5 mg PO BEDTIME 05/25/22 Losartan Potassium 100 mg PO DAILY #90 tab 05/28/22 Potassium Chloride 20 meq PO DAILY 08/11/22 Hydralazine HCl 100 mg PO BID #180 08/16/22 ursodioL [Actigall*] 300 mg PO BID cap 08/16/22 Amiodarone HCl [Cordarone*] 1 tab PO DAILY 12/30/22 Aspirin [Aspirin EC] 1 tab PO DAILY 12/30/22 Magnesium Citrate and Oxide [Magnesium] 1 cap PO DAILY 12/30/22 Memantine HCl 1 tab PO BID 12/30/22 Methenamine Hippurate 1 tab PO BID 12/30/22 Montelukast [Singulair*] 1 tab PO DAILY 12/30/22 Torsemide [Demadex*] 1 tab PO DAILY 12/30/22 Guaif/Dm [Robitussin Dm*] 10 ml PO Q6H PRN 01/11/23 Potassium Oral Tab [Klor-Con 10 mEq Tab*] 10 meq PO DAILY #90 tab 01/11/23 levETIRAcetam [Keppra*] 250 mg PO BID tab 01/11/23 New Medications: Potassium Oral Tab [Klor-Con 10 mEq Tab*] 10 meq PO DAILY #90 tab Followup: Eddie Solis MD [Primary Care Provider] - 1-2 Weeks (call to schedule an appointment )
== END 2023-01-11 10:31 | disposition home health service (06) | DRG 640 ==
LOC: ER 11:13 → ERHOLD 15:57 → 2ND 17:24
PROVIDERS: ADMIT Internal Medicine; ATTEND Internal Medicine
PROC: 30243N1 Transfusion of Nonautologous Red Blood Cells into Central Vein, Percutaneous Approach (ICD-10-PCS; principal; 2023-01-04)
DX: E86.0 Dehydration (principal); I50.31 Acute diastolic (congestive) heart failure; N39.0 Urinary tract infection, site not specified; R09.02 Hypoxemia; G25.3 Myoclonus; E03.9 Hypothyroidism, unspecified; K21.9 Gastro-esophageal reflux disease without esophagitis; G62.9 Polyneuropathy, unspecified; G47.00 Insomnia, unspecified; E78.5 Hyperlipidemia, unspecified; I48.91 Unspecified atrial fibrillation; D64.9 Anemia, unspecified; I10 Essential (primary) hypertension
CPT/HCPCS: 36415; 36430; 70450; 71045; 71046; 71275; 72125; 80048; 80076; 81001; 82607; 82728; 83540; 83735; 83880; 84165; 84466; 84484; 85014; 85018; 85025; 85044; 85379; 85610; 85730; 86850; 86900; 86901; 86920; 87077; 87086; 87088; 87186; 94760; 96360; 96361; 97116; 97161; 97530; 99285; J0696; J1650; J1940; J2185; J7030; J7040; J7050; P9016; Q9967

== ENCOUNTER 2023-01-12 13:47 | Inpatient (IN) | payer BC ==
--- OUTSIDE RECORDS SUMMARY | 2023-01-12 14:04 | XMS REPORT | Continuity of Care Document ---
:1940 Author Organization [facility] t Address [address] [place] [address] Care Team Providers Name Role Phone [phone] Primary Care Physician Unavailable Eagle Osborn Attending Clinician Unavailable SYSTEM, PROVIDER NOT IN Attending Clinician Unavailable MILDRED BHANDARI Attending Clinician Unavailable Rachele Knight Attending Clinician [...] Date Expiration Date S ource [place] [id number] 2017 00:00:00 [place] [id number] 2022 ADVANTAGE 00:00:00 [place] [id number] 2014 00:00:00 MEDICARE PART A [id number] 2004 AND B 00:00:00 Problems Condition Condition Condition Status Onset Resolution Last Treating Co mments Source Name Details Category Date Date Treatment Clinician Date CICATRICIA CICATRICI Diagnosis Active 2022-01-11 Memoria L AL 01-06 16:39:00 l ECTROPION ECTROPION 00:00: Herm eder OF LEFT OF LEFT 00 LOWER EYEL LOWER EYEL Active 01/06/2022 [facility] CHF CHF Disease Active Methodi (congestiv (congestiv [...] Added automatic ally from request for surgery [id number] N28.89 - N28.89 - Diagnosis Active 2018-082019-08-02 Memoria OTHER OTHER 08:59:00 l SPECIFIED SPECIFIED 00:01: Herm eder DISORDERS DISORDERS 00 OF K OF K Active 07/31/2019 [facility] [place] N28.89-OTH Diagnosis Active 2018-082019-09-15 Memoria ER N28.89-OTH 15:33:00 l SPECIFIED ER 00:00: [place] DISORDERS SPECIFIED 00 OF KIDN DISORDERS OF KIDN Active 07/30/2019 [place] [facility]ignant Malignant Problem Resolve 2022-01-10 Memoria melanoma melanoma d 00:19:24 l (disorder) (disorder) He rmann Resolved Problem 01/10/2022 left arm [facility] Atrial Atrial Problem Active 2022-08-11 Robert micky fibrillati fibrillati 23:35:27 l on on Wild (disorder) (disorder) Active Problem 08/11/2022 pt has watchman device [facility] Chronic Chronic Problem Active 2022-08-11 Me moria kidney kidney 23:35:27 l disease disease Wild (disorder) (disorder) Active Problem 08/11/2022 [facility] 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 23:35:27 l (disorder) (disorder) He rmann Active Problem 08/11/2022 [facility] Gastroesop Gastroeso Problem Active 2022-08-11 Memoria hageal phageal 23:35:27 l reflux reflux [place] disease disease (disorder) (disorder) Active Problem 08/11/2022 [facility] Hyperchole Hyperchol Problem Active 2022-08-11 Memoria sterolemia esterolemi 23:35:27 l (disorder) a Kobi n (disorder) Active Problem 08/11/2022 [facility] Hypertensi Hypertens Problem Active 2022-08-11 Memoria ve [place] 23:35:27 l disorder, disorder, Herm eder systemic systemic arterial arterial (disorder) (disorder) Active Problem 08/11/2022 [facility] Hypothyroi Hypothyro Problem Active 2022-08-11 Memoria dism idism 23:35:27 l (disorder) (disorder) He rmann Active Problem 08/11/2022 [facility] Neuropathy Neuropath Problem Active 2022-08-11 Memoria (disorder) y 23:35:27 l (disorder) Kobi n Active Problem 08/11/2022 [facility] Osteoarthr Osteoarth Problem Active 2022-08-11 Memoria itis ritis 23:35:27 l (disorder) (disorder) He rmann Active Problem 08/11/2022 [facility] Simple Simple Problem Active 2022-08-11 Robert micky obesity obesity 23:35:27 l (disorder) (disorder) He rmann Active Problem 08/11/2022 [facility], Sana [facility] Sleep Sleep Problem Active 2022-08-11 Memor ia apnea apnea 23:35:27 l (finding) (finding) Herm eder Active Problem 08/11/2022 does not use cpap [facility] Urinary Urinary Problem Active 2022-08-11 Me moria incontinen incontinen 23:35:27 l ce ce Wild (finding) (finding) Active Problem 08/11/2022 [facility] OTHER OTHER Diagnosis Active 2019-09-15 Mem oria SPECIFIED SPECIFIED 15:33:00 l DISORDERS DISORDERS Herm eder OF KIDNEY OF KIDNEY AND AND Active [facility] UNSPECIFIE UNSPECIFI Diagnosis Active 2019-09-15 Memoria D URINARY ED URINARY 15:33:00 l INCONTINEN INCONTINEN He sarah CE CE Active [facility] CONSTANT CONSTANT Diagnosis Active 2021-12-30 Memoria EXOPHTHALM EXOPHTHALM 09:38:00 l OS, OS, [place] BILATERAL BILATERAL Active [facility] History of Past Illness Condition Condition Condition Status Onset Resolution Last Treating Co mments Source Name Details Category Date Date Treatment Clinician Date Exposure Exposure Problem 2022-01-10 2022-01-10 Memoria keratoconj keratoconj 01-07 00:19:24 00:19:24 l unctivitis unctivitis 19:00: He sarah , , 00 bilateral bilateral 01/07/2022 01/10/2022 [facility] Unspecifie Unspecifi Problem 2022-01-10 2022-01-10 Memoria d ed 01-07 00:19:24 00:19:24 l entropion entropion 19:00: Herm eder of right of right 00 lower lower eyelid eyelid 01/07/2022 [facility] Unspecifie Unspecifi Problem 2022-01-10 2022-01-10 Memoria d ed 01-07 00:19:24 00:19:24 l ectropion ectropion 19:00: Herm eder of left of left 00 lower lower eyelid eyelid 01/07/2022 01/10/2022 [facility] Unspecifie Unspecifi Problem 2022-01-10 2022-01-10 Memoria d ed 01-07 00:19:24 00:19:24 l exophthalm exophthalm 18:59: He sarah os os 00 01/07/2022 01/10/2022 [facility] Brow Brow Problem 2022-01-10 2022-01-10 M emoria ptosis, ptosis, 01-07 00:19:24 00:19:24 l unspecifie unspecifie 18:59: He rmann d d 00 01/07/2022 01/10/2022 [facility] Unspecifie Unspecifi Problem 2022-01-10 2022-01-10 Memoria d ptosis ed ptosis 01-07 00:19:24 00:19:24 l of of 18:59: Wild bilateral bilateral 00 eyelids eyelids 01/07/2022 01/10/2022 [facility] Allergies, Adverse Reactions, Alerts Allergy Allergy Status Severity Reaction(s) Onset Inactive Treating Comm ents Source Name Type Date Date Clinician No Known DA Active [facility] Allergie 329 Clear s 00:00: Collins 00 [facility] No Known DA Active [facility] Allergie 329 Clear s 00:00: Collins 00 [facility] INDOMETH DRUG Active Other MD ACIN INGREDI [...] 7-13 Clear Allergie 00:00: Collins s 00 [facility] No Known DA Active [facility] Drug 7-13 Clear Allergie 00:00: Collins s 00 [facility] No Known No Known Active Memori a Medicati Medicati l on on [place] Allergie Allergie s s Social History Social Habit Start Date Stop Date Quantity Comments Source Gender [facility] History of Social 2022-11-03 2022-11-03 [facility] function 00:00:00 00:00:00 Social History 2021-12-17 2021-12-17 [facility] keyshawn 15:55:16 15:55:16 Sex Assigned At [birth year] [facility] 00:00:00 00:00:00 Smoking Status Start Date Stop Date Source Tobacco smoking consumption unknown [facility] Tobacco smoking status [facility] Medications Ordered Filled Start Stop Current Ordering Indication Dosage Frequency Signature Comments Components Source Medication Medication Date Date Medication? Clinician (SIG) Name Name sugammadex 0 No Route: IV, Sana emoria (ANES) 01-07 Drug form: l 19:24: SOLN, [place] 00 ONCE, Stop date: 01/07/22 14:24:00 CDT sugammadex 2021-0 No Route: IV, Sana emoria (ANES) 01-07 Drug form: l 19:24: SOLN, [place] 00 ONCE, Stop date: 01/07/22 14:24:00 CDT sugammadex 2021-0 No Route: IV, Sana emoria (ANES) 01-07 Drug form: l 19:24: SOLN, Wild 00 ONCE, Stop date: 01/07/22 14:24:00 CDT sugammadex 2021-0 No Route: IV, Sana emoria (ANES) 01-07 Drug form: l 19:24: SOLN, [place] 00 ONCE, Stop date: 01/07/22 14:24:00 CDT ondansetron 2021-0 No Route: IV, Memoria (ANES) 01-07 Drug form: l 19:18: INJ, ONCE, [place] Stop date: 01/07/22 14:18:00 CDT ondansetron 2-0 No Route: IV, Memoria (ANES) 01-07 Drug form: l 19:18: INJ, ONCE, Wild Stop date: 01/07/22 14:18:00 CDT ondansetron 2021-0 No Route: IV, Memoria (ANES) 01-07 Drug form: l 19:18: INJ, ONCE, Wild Stop date: 01/07/22 14:18:00 CDT ondansetron 2021-0 No Route: IV, Memoria (ANES) 01-07 Drug form: l 19:18: INJ, ONCE, Wild Stop date: 01/07/22 14:18:00 CDT ANES 2021-0 No 10 mg, Memoria hydrALAZINE 01-07 Route: l 18:59: IVP, [place] 00 Q20Min, Dosing Weight 86.1, kg, PRN Elevated BP, Start date: 01/07/22 13:59:00 CDT, Duration: 2 doses or times, Stop date: Limited # of times ANES 2021-0 No 1,000 mg, Memoria acetaminoph 01-07 Route: PO, l en 18:59: Drug form: [place] 00 TAB, ONCE, Dosing Weight 86.1, kg, [...] HYDROmorpho 01-07 Route: l ne 18:59: IVP, [place] 00 Q5Min, Dosing Weight 86.1, kg, PRN Pain Score 7-10, Start date: 01/07/22 13:59:00 CDT, Duration: 4 doses or times, Stop date: Limited # of times ANES 2021-0 No 0.2 mg, Memoria flumazenil 01-07 Route: l 18:59: IVP, PRN, [place] 00 Dosing Weight 86.1, kg, PRN Benzodiaze [...] ondansetron 01-07 Route: l 18:59: IVP, ONCE, [place] 00 Dosing Weight 86.1, kg, PRN Nausea & Vomiting, Start date: 01/07/22 13:59:00 CDT ANES 2021-0 No 6.25 mg, Memoria promethazin 01-07 Route: l e 18:59: IVPB, [place] 00 ONCE, Dosing Weight 86.1, kg, PRN Nausea & Vomiting, Start date: 01/07/22 13:59:00 CDT ANES 2021-0 No 10 mg, Memoria hydrALAZINE 01-07 Route: l 18:59: IVP, [place] 00 Q20Min, Dosing Weight 86.1, kg, PRN Elevated BP, Start date: 01/07/22 13:59:00 CDT, Duration: 2 doses or times, Stop date: Limited # of times ANES 2021-0 No 1,000 mg, Memoria acetaminoph 01-07 Route: PO, l en 18:59: Drug form: [place] 00 TAB, ONCE, Dosing Weight 86.1, kg, PRN Pain Score 1-3, Start date: 01/07/22 13:59:00 CDT ANES 2021-0 No 5 mg, Memoria oxyCODONE 5 01-07 Route: PO, l mg 18:59: Drug form: [place] immediate 00 TAB, Q4H, release Dosing tablet Weight 86.1, kg, PRN Pain Score 4-6, Start date: 01/07/22 13:59:00 CDT, Duration: 30 day, Stop date: 02/06/22 13:58:00 CDT ANES 2021-0 No 0.2 mg, Memoria HYDROmorpho 01-07 Route: l ne 18:59: IVP, [place] 00 Q5Min, Dosing Weight 86.1, kg, PRN Pain Score 7-10, Start date: 01/07/22 13:59:00 CDT, Duration: 4 doses or times, Stop date: Limited # of times ANES 2021-0 No 0.2 mg, Memoria flumazenil 01-07 Route: l 18:59: IVP, PRN, [place] 00 Dosing Weight 86.1, kg, PRN Benzodiaze [...] Limited # of times ANES 0 No 4 mg, Memoria ondansetron 01-07 Route: l 18:59: IVP, ONCE, Wild 00 Dosing Weight 86.1, kg, PRN Nausea & Vomiting, Start date: 01/07/22 13:59:00 CDT ANES 0 No 6.25 mg, Memoria promethazin 01-07 Route: l e 18:59: IVPB, [place] 00 ONCE, Dosing Weight 86.1, kg, PRN [...] Route: PO, l en 18:59: Drug form: [place] 00 TAB, ONCE, Dosing Weight 86.1, kg, PRN Pain Score 1-3, Start date: 01/07/22 13:59:00 CDT ANES 2021-0 No 5 mg, Memoria oxyCODONE 5 01-07 Route: PO, l mg 18:59: Drug form: [place] immediate 00 TAB, Q4H, release Dosing tablet [...] Limited # of times ANES 2021-0 No 0.2 mg, Memoria flumazenil 01-07 Route: l 18:59: IVP, PRN, Wild Dosing Weight 86.1, kg, PRN Benzodiaze pine [...] Limited # of times ANES 0 No 4 mg, Memoria ondansetron 01-07 Route: l 18:59: IVP, ONCE, [place] 00 Dosing Weight 86.1, kg, PRN Nausea & Vomiting, Start date: 01/07/22 13:59:00 CDT ANES 0 No 6.25 mg, Memoria promethazin 01-07 Route: l e 18:59: IVPB, [place] 00 ONCE, Dosing Weight 86.1, kg, PRN [...] HYDROmorpho 01-07 Route: l ne 18:59: IVP, [place] 00 Q5Min, Dosing Weight 86.1, kg, PRN Pain Score 7-10, Start date: 01/07/22 13:59:00 CDT, Duration: 4 doses or times, Stop date: Limited # of times ANES 2021-0 No 0.2 mg, Memoria flumazenil 01-07 Route: l 18:59: IVP, PRN, [place] 00 Dosing Weight 86.1, kg, PRN Benzodiaze [...] ondansetron 01-07 Route: l 18:59: IVP, ONCE, [place] 00 Dosing Weight 86.1, kg, PRN Nausea [...] ONCE, Stop date: 01/07/22 13:17:00 CDT atropine 2021-0 No Route: IV, Mem oria (ANES) 01-07 Drug form: l 18:17: INJ, ONCE, Stop date: 01/07/22 13:17:00 CDT atropine 2021-0 No Route: IV, Mem oria (ANES) 01-07 Drug form: l 18:17: INJ, ONCE, Stop date: 01/07/22 13:17:00 CDT atropine 2021-0 No Route: IV, Mem oria (ANES) 01-07 Drug form: l 18:17: INJ, ONCE, Stop date: 01/07/22 13:17:00 CDT lidocaine 2021-0 No Route: IV, Me moria (ANES) 01-07 Drug form: l 18:07: INJ, ONCE, Stop date: 01/07/22 13:07:00 CDT propofol 2021-0 No Route: IV, Mem oria (ANES) [...] ONCE, Stop date: 01/07/22 13:07:00 CDT lidocaine 2021-0 No Route: IV, Me moria (ANES) 01-07 Drug form: l 18:07: INJ, ONCE, Stop date: 01/07/22 13:07:00 CDT propofol 2022-0 No Route: IV, Mem oria (ANES) 01-07 Drug form: l 18:07: INJ, ONCE, Stop date: 01/07/22 13:07:00 CDT rocuronium 2022-0 No Route: IV, M emoria (ANES) 01-07 Drug form: l 18:07: INJ, ONCE, Stop date: 01/07/22 13:07:00 CDT glycopyrrol 2021-0 No Route: IV, Memoria ate (ANES) 01-07 Drug form: l 18:07: INJ, ONCE, Stop date: 01/07/22 13:07:00 CDT ketAMINE 2-0 No Route: IV, Mem oria (ANES) 01-07 Drug form: l 18:07: INJ, ONCE, Stop date: 01/07/22 13:07:00 CDT lidocaine 2-0 No Route: IV, Me moria (ANES) 01-07 Drug form: l 18:07: INJ, ONCE, Stop date: 01/07/22 13:07:00 CDT propofol 2022-0 No Route: IV, Mem oria (ANES) 01-07 Drug form: l 18:07: INJ, ONCE, Stop date: 01/07/22 13:07:00 CDT rocuronium 2022-0 No Route: IV, M emoria (ANES) 01-07 Drug form: l 18:07: INJ, ONCE, Stop date: 01/07/22 13:07:00 CDT glycopyrrol 2-0 No Route: IV, Memoria ate (ANES) 01-07 Drug form: l 18:07: INJ, ONCE, Stop date: 01/07/22 13:07:00 CDT ketAMINE 2022-0 No Route: IV, Mem oria (ANES) [...] Stop date: 01/07/22 14:00:00 CDT Isolyte S 2021-0 No Route: IV, Me moria PH 7.4 6-09 Total l (ANES) 500 18:00: Volume: Herm eder mL 00 500, Start date: 01/07/22 13:00:00 CDT, Stop date: 01/07/22 14:00:00 CDT Isolyte S 2021-0 No Route: IV, [...] ONCE, Stop date: 01/07/22 12:10:00 CDT ceFAZolin 202-0 No Route: IV, Me moria (ANES) 01-07 [...] Stop date: 01/07/22 12:00:00 CDT Isolyte S 2022-0 No Route: IV, Me moria PH 7.4 6-09 Total l (ANES) 1000 16:00: Volume: Her sykes mL 00 1,000, Start date: 01/07/22 11:00:00 CDT, Stop date: 01/07/22 12:00:00 CDT Isolyte S 2022-0 No Route: IV, Me moria PH 7.4 6-09 Total l (ANES) 1000 16:00: Volume: Her sykes mL 00 1,000, Start date: 01/07/22 11:00:00 CDT, Stop date: 01/07/22 12:00:00 CDT Isolyte S 2022-0 No Route: IV, Me moria PH 7.4 6-09 Total l (ANES) 1000 16:00: Volume: Her sykes mL 00 1,000, Start date: 01/07/22 11:00:00 CDT, Stop date: 01/07/22 12:00:00 CDT Isolyte S 2022-0 No 1,000 mL, Mem oria PH 7.4 01-07 Rate: 75 l 1,000 mL 15:01: ml/hr, [place] 00 Infuse over: 13.3 hr, Route: IV, Dosing [...] 75 l 1,000 mL 15:01: ml/hr, Wild 00 Infuse over: 13.3 hr, Route: IV, Dosing Weight 84 kg, Total Volume: 1,000, Start date: 01/07/22 10:01:00 CDT, Duration: 30 day, Stop date: 02/06/22 10:00:00 CDT, BSA: 2 m2, 0 acetaminoph 2022-0 No 1,000 mg, M emoria en 01-07 Route: PO, l 15:01: Drug form: [place] 00 TAB, PRE OP, Dosing Weight 84, [...] 01-07 Route: PO, l 15:01: Drug form: [place] 00 TAB, PRE OP, Dosing Weight 84, kg, Priority: NOW, Start date: 01/07/22 10:01:00 CDT, Duration: 1 doses or times oxybutynin 2022-0 Yes 5 mg = 1 Mem oria 5 mg oral 5-19 tab, PO, l tablet 15:31: QPM, # 60 Kobi n 00 tab, 1 Refill(s) oxybutynin 2021-0 Yes 5 mg = 1 Mem oria 5 mg oral 5-19 tab, PO, l tablet 15:31: QPM, # 60 Kobi n 00 tab, 1 Refill(s) ursodiol 2021-0 Yes 300 mg = 1 Mem oria 300 mg oral 5-19 cap, PO, l capsule 15:30: BID, # 180 Herm eder 00 cap, 0 Refill(s) Lyrica 150 2021-0 Yes 150 mg = 1 M emoria mg oral 5-19 cap, PO, l capsule 15:30: BID, # 60 Arabella nn 00 cap, 1 Refill(s) magnesium 2021-0 Yes 400 mg = 1 Me moria oxide 5-19 tab, PO, l 15:30: BID, # 20 Wild 00 tab, 0 Refill(s) cranberry 2021-0 Yes 0 Memoria 5-19 Refill(s) l 15:30: [place] 00 Zinc 2021-0 Yes 140 mg, Memoria 5-19 PO, Daily, l 15:30: 0 Wild 00 Refill(s) ursodiol 2021-0 Yes 300 mg = 1 Mem oria 300 mg oral 5-19 cap, PO, l capsule 15:30: BID, # 180 Herm eder 00 cap, 0 Refill(s) Lyrica 150 2021-0 Yes 150 mg = 1 M emoria mg oral 5-19 cap, PO, l capsule 15:30: BID, # 60 Arabella nn 00 cap, 1 Refill(s) magnesium 2021-0 Yes 400 mg = 1 Me moria oxide 5-19 tab, PO, l 15:30: BID, # 20 Wild 00 tab, 0 Refill(s) cranberry 2021-0 Yes 0 Memoria 5-19 Refill(s) l 15:30: Wild 00 Zinc 2-0 Yes 140 mg, Memoria 5-19 PO, Daily, l 15:30: 0 [place] 00 Refill(s) Synthroid 2021-0 Yes 125 Memoria 125 mcg 5-19 microgram l (0.125 mg) 15:29: = 1 tab, Her sykes oral tablet 00 PO, QAM, # 30 tab, 0 Refill(s) Uloric 80 0 Yes 80 mg = 1 Mem oria mg oral 5-19 tab, PO, l tablet 15:29: QAM, # 30 Kobi n 00 tab, 0 Refill(s) Synthroid 0 Yes 125 Memoria 125 mcg 5-19 microgram l (0.125 mg) 15:29: = 1 tab, Her sykes oral tablet 00 PO, QAM, # 30 tab, 0 Refill(s) Uloric 80 0 Yes 80 mg = 1 Mem oria mg oral 5-19 tab, PO, l tablet 15:29: QAM, # 30 Kobi n 00 tab, 0 Refill(s) Aciphex 20 2021-0 Yes 20 mg = 1 Me moria mg oral 5-19 tab, PO, l enteric 15:28: QAM, # 30 Arabella nn coated 00 tab, 1 tablet Refill(s) Crestor 5 2021-0 Yes 5 mg = 1 Robert micky mg oral 5-19 tab, PO, l tablet 15:28: QAM, # 60 Kobi n 00 tab, 0 Refill(s) Aciphex 20 2021-0 Yes 20 mg = 1 Me moria mg oral 5-19 tab, PO, l enteric 15:28: QAM, # 30 Arabella nn coated 00 tab, 1 tablet Refill(s) Crestor 5 2021-0 Yes 5 mg = 1 Robert micky mg oral 5-19 tab, PO, l tablet 15:28: QAM, # 60 Kobi n 00 tab, 0 Refill(s) amLODIPine 2021-0 Yes 5 mg, PO, Me moria 5-19 QAM, 0 l 15:27: Refill(s) [place] 00 Lasix 40 mg 2021-0 Yes 40 mg = 1 M emoria oral tablet 5-19 tab, PO, l 15:27: QAM, # 90 [place] 00 tab, 0 Refill(s) amLODIPine 2021-0 Yes 5 mg, PO, Me moria 5-19 QAM, 0 l 15:27: Refill(s) Wild 00 Lasix 40 mg 2021-0 Yes 40 mg = 1 M emoria oral tablet 5-19 tab, PO, l 15:27: QAM, # 90 [place] 00 tab, 0 Refill(s) AMIODarone 0 Yes 200 mg = 1 M emoria 200 mg oral 5-19 tab, PO, l tablet 15:25: QAM, # 90 Kobi n 00 tab, 3 Refill(s) AMIODarone 2021-0 Yes 200 mg = 1 M emoria [...] 13 (two) l times a day. ferrous 0 Yes 18mg Q.[id number] Take 18 mg [facility] sulfate 325 6-25 [id number] (65 FE) MG 19:01: 3D (three) Hosp radames tablet 13 times a l day with meals. Patient takes 18mg PO TID febuxostat 0 Yes 40mg QD Take 40 mg M [...] or as directed [place] [id number] 5mL Q6H Take 5 mL [facility] ifenesin [...] l times a day. ferrous Yes 18mg Q.89827316 Take 18 mg [facility] sulfate 325 6-[id number] [facility] [address] (65 FE) MG [...] or as directed by [place] pereira Yes [id number] 5mL Q6H Take 5 mL [facility] ifenesin [...] 40 MG EC 13 l tablet rosuvastati 0 Yes 5mg QD Take 5 mg M ethodi n (CRESTOR) 6-[address] 5 mg tablet 19:01: daily. Hosp radames 13 l liothyronin 0 Yes 5ug QD Take 5 mcg [facility] e (CYTOMEL) 6-[address] 5 MCG 19:01: daily. Hospita tablet 13 l magnesium 0 Yes 400mg Q.5D Take 400 Met hodi [...] l times a day. ferrous Yes 18mg Q.02722150 Take 18 mg [facility] sulfate 325 6-[id number] (65 FE) MG 19:01: 3D (three) Hosp radames tablet 13 times a l day with meals. Patient takes 18mg PO TID febuxostat 0 Yes 40mg QD Take 40 mg M [...] or [place] [id number] 5mL Q6H Take 5 mL [facility] ifenesin 6-[address] (GUAIFENESI 19:01: every 6 Hos evelyn N AC) 13 (six) l 10-100 mg/5 hours as mL liquid needed for cough .acute pain. aspirin 0 Yes 81mg QD Take 81 mg Meth [...] 19:01: daily. Hosp radames 13 l aspirin 0 Yes 81mg QD Take 81 mg Meth [...] 125 mcg 13 daily. l tablet pantoprazol 0 Yes 40mg QD Take 40 mg [facility] e 6-[address] (PROTONIX) 19:01: daily. Hospi ta 40 MG EC 13 l tablet rosuvastati 0 Yes 5mg QD Take 5 mg M [...] l times a day. ferrous Yes 18mg Q.29959728 Take 18 mg [facility] sulfate 325 6-[id number] (65 FE) MG [...] or [place] [id number] 5mL Q6H Take 5 mL [facility] ifenesin 6-[address] (GUAIFENESI 19:01: every 6 Hos evelyn N AC) 13 (six) l 10-100 mg/5 hours as mL liquid needed for cough .acute pain. meclizine 2021-0 Yes 25mg Q.[id number] Take 2 [facility] (ANTIVERT) 6-[id number] 12.5 mg 00:00: 3D (25 mg Hospita tablet 00 total) by l mouth 3 (three) times a day as needed for dizziness. ipratropium 2021-0 Yes [id number] .5mg Q.85977833 Take 2.5 [facility] (ATROVENT) 6-25 [id number] mL (0.[address] 0.02 % 00:00: 3D total) by Hospit a nebulizer 00 nebulizati l solution on 3 (three) times a day. meclizine 2021-0 Yes 25mg Q.[id number] Take 2 [facility] (ANTIVERT) 6-[id number] 12.5 mg 00:00: 3D (25 mg Hospita tablet 00 total) by l mouth 3 (three) times a day as needed for dizziness. ipratropium 2021-0 Yes [id number] .5mg Q.61424143 Take 2.5 [facility] (ATROVENT) 6-25 [id number] mL (0.[address] 0.02 % 00:00: 3D total) by Hospit a nebulizer 00 nebulizati l solution on 3 (three) times a day. meclizine 2021-0 Yes 25mg Q.[id number] Take 2 [facility] (ANTIVERT) 6-[id number] 12.5 mg 00:00: 3D (25 mg Hospita tablet 00 total) by l mouth 3 (three) times a day as needed for dizziness. ipratropium 2021-0 Yes [id number] .5mg Q.[id number] Take 2.5 [facility] (ATROVENT) 6-25 [id number] mL (0.[address] 0.02 % 00:00: 3D total) by Hospit a nebulizer 00 nebulizati l solution on 3 (three) times a day. meclizine 2021-0 Yes 25mg Q.[id number] Take 2 [facility] (ANTIVERT) 6-[id number] 12.5 mg 00:00: 3D (25 mg Hospita tablet 00 total) by l mouth 3 (three) times a day as needed for dizziness. ipratropium Yes [id number] .5mg Q.[id number] Take 2.5 [facility] (ATROVENT) 6-25 [id number] mL (0.[address] 0.02 % 00:00: 3D total) by Hospit a nebulizer 00 nebulizati l solution on 3 (three) times a day. Aspirin 2018-08 Yes 0 Memoria 2-16 Refill(s) l 16:34: [place] 00 Vitamin D3 2018-08 Yes 1,000 Memori a 1000 intl 2-16 IntlUnit = l units oral 16:34: 1 cap, PO, H ermann capsule 00 Daily, 0 Refill(s) Benadryl 2018-08 Yes 0 Memoria 2-16 Refill(s) l 16:34: [place] 00 colesevelam 2018-08 Yes 1,875 mg = Memoria 625 mg oral 2-16 3 tab, PO, l tablet 16:34: BID, 0 00 Refill(s) Aspirin 2018-08 Yes 0 Memoria 2-16 Refill(s) l 16:34: Vitamin D3 2018-08 Yes 1,000 Memori a 1000 intl 2-16 IntlUnit = l units oral 16:34: 1 cap, PO, H ermann capsule 00 Daily, 0 Refill(s) Benadryl 2018-08 Yes 0 Memoria 2-16 Refill(s) l 16:34: colesevelam 2018-08 Yes 1,875 mg = Memoria 625 mg oral 2-16 3 tab, PO, l tablet 16:34: BID, 0 00 Refill(s) aspirin 2018-08 Yes 81 mg, PO, Robert micky 2-16 Daily, 0 l 16:34: Refill(s) Benadryl 2018-08 Yes 25 mg, Memoria 2-16 Bedtime, 0 l 16:34: Refill(s) [place] 00 Aspirin 2018-08 Yes 0 Memoria 2-16 Refill(s) l 16:34: Vitamin D3 2018-08 Yes 1,000 Memori a 1000 intl 2-16 IntlUnit = l units oral 16:34: 1 cap, PO, H ermann capsule 00 Daily, 0 Refill(s) Benadryl 2018-08 Yes 0 Memoria 2-16 Refill(s) l 16:34: Wild 00 colesevelam 2018-08 Yes 1,875 mg = Memoria 625 mg oral 2-16 3 tab, PO, l tablet 16:34: BID, 0 [place] 00 Refill(s) Aspirin 2018-08 Yes 0 Memoria 2-16 Refill(s) l 16:34: [place] 00 Vitamin D3 2018-08 Yes 1,000 Memori a 1000 intl 2-16 IntlUnit = l units oral 16:34: 1 cap, PO, H ermann capsule 00 Daily, 0 Refill(s) Benadryl 2018-08 Yes 0 Memoria 2-16 Refill(s) l 16:34: Wild 00 colesevelam 2018-08 Yes 1,875 mg = Memoria 625 mg oral 2-16 3 tab, PO, l tablet 16:34: BID, 0 Wild 00 Refill(s) aspirin 2018-08 Yes 81 mg, PO, Robert micky 2-16 Daily, 0 l 16:34: Refill(s) Benadryl 2018-08 Yes 25 mg, Memoria 2-16 Bedtime, 0 l 16:34: Refill(s) 2018-08 Yes 50 mg = 1 Memoria mirabegron 2-16 tab, PO, l 50 MG 16:03: Daily, # Wild Extended 00 30 tab, 0 Release Refill(s), Tablet Pharmacy: [Myrbetriq] [facility] [place] 2018-08 Yes 50 mg = 1 Memoria mirabegron 2-16 tab, PO, l 50 MG 16:03: Daily, # Wild Extended 00 30 tab, 0 Release Refill(s), Tablet Pharmacy: [Myrbetriq] [facility] [place] 2018-08 Yes 50 mg = 1 Memoria mirabegron 2-16 tab, PO, l 50 MG 16:03: Daily, # Wild Extended 00 30 tab, 0 Release Refill(s), Tablet Pharmacy: [Myrbetriq] [facility] [place] 2018-08 Yes 50 mg = 1 Memoria mirabegron 2-16 tab, PO, l 50 MG 16:03: Daily, # [place] Extended 00 30 tab, 0 Release Refill(s), Tablet Pharmacy: [Wyattbeeveliaiq] [facility] [place] kaylynothyronin 2018-08 Yes 5 Memori a e 5 [...] tab, PO, l Tablet 15:29: Daily, # [place]geon [Uloric] 00 30 tab, 0 Refill(s) carvedilol 2018-08 Yes 12.5 mg = Me moria 12.5 mg 2-16 1 tab, PO, l oral tablet 15:29: BID, 0 Herm eder 00 Refill(s) ursodiol 2018-08 Yes 300 mg = 1 Mem oria 300 mg oral 2-16 cap, PO, l capsule 15:29: BID, 0 Sp[place] 00 Refill(s) pregabalin 2018-08 Yes 150 mg = 1 M emoria 150 MG Oral 2-16 cap, PO, l Capsule 15:29: BID, 0 [place] [Lyrica] 00 Refill(s) doxazosin 4 2018-08 Yes 4 mg = 1 Me moria mg oral 2-16 tab, PO, l tablet 15:29: Daily, 0 Sp[place]geon 00 Refill(s) oxybutynin 2018-08 Yes 15 mg [...] tab, PO, l Tablet 15:29: Daily, # Sp[place]geon [Uloric] 00 30 tab, 0 Refill(s) carvedilol [...] tab, PO, l tablet 15:29: Daily, 0 Sp[place]geon 00 Refill(s) oxybutynin 2018-08 Yes 15 mg = 1 Me moria 15 mg oral 2-16 tab, PO, l tablet, 15:29: Daily, 0 Kobi n extended 00 Refill(s) release liothyronin 2018-08 Yes 5 Memori a e 5 mcg 2-16 microgram l oral tablet 15:29: = 1 tab, He rmann 00 PO, Daily, 0 Refill(s) liothyronin 2018-08 Yes 5 Memori a e [...] tab, PO, l Tablet 15:29: Daily, # Sp[place]geon [Uloric] 00 30 tab, 0 Refill(s) carvedilol 2018-08 Yes 12.5 mg = Me moria 12.5 mg 2-16 1 tab, PO, l oral tablet 15:29: BID, 0 Herm eder 00 Refill(s) ursodiol 2018-08 Yes 300 mg = 1 Mem oria 300 mg oral 2-16 cap, PO, l capsule 15:29: BID, 0 Sp[place]geon 00 Refill(s) pregabalin 2018-08 Yes 150 mg = 1 M emoria 150 MG Oral 2-16 cap, PO, l Capsule 15:29: BID, 0 Wild [Lyrica] 00 Refill(s) doxazosin 4 2018-08 Yes 4 mg = 1 Me moria mg oral 2-16 tab, PO, l tablet 15:29: Daily, 0 [place] 00 Refill(s) oxybutynin 2018-08 Yes 15 mg [...] cap, PO, l Capsule 15:29: BID, 0 [place] [Lyrica] 00 Refill(s) doxazosin 4 2018-08 Yes 4 mg = 1 Me moria mg oral 2-16 tab, PO, l tablet 15:29: Daily, 0 [place] 00 Refill(s) oxybutynin 2018-08 Yes 15 mg = 1 Me moria 15 mg oral 2-16 tab, PO, l tablet, 15:29: Daily, 0 Kobi n extended 00 Refill(s) release liothyronin 2018- Yes 5 Memori a e 5 mcg 2-16 microgram l oral tablet 15:29: = 1 tab, He rmann 00 PO, Daily, 0 Refill(s) Vital Signs Vital Name Observation Time Observation Value Comments Source Respitory Rate 2022-01-07 21:45:00 Memori al [place] Systolic (mm Hg) 2022-01-07 21:45:00 Robert rial Wild Diastolic (mm Hg) 2022-01-07 21:45:00 Mem orial Wild Respitory Rate 2022-01-07 21:30:00 Memori al [place] Systolic (mm Hg) 2022-01-07 21:30:00 Robert rial [place] Diastolic (mm Hg) 2022-01-07 21:30:00 Mem orial Wild Respitory Rate 2022-01-07 21:15:00 Memori al [place] Systolic (mm Hg) 2022-01-07 21:15:00 Robert rial [place] Diastolic (mm Hg) 2022-01-07 21:15:00 Mem orial [place] Height 2022-01-07 15:36:00 167.64 cm Memorial [place] Weight 2022-01-07 15:36:00 Memorial Wild BMI Calculated 2022-01-07 15:36:00 Memori al Wild Heart Rate 2022-01-07 15:20:00 Memorial Wild Height 2022-01-07 15:01:00 167.64 cm Memorial Wild Weight 2022-01-07 15:01:00 Memorial Wild BMI Calculated 2022-01-07 15:01:00 Memori al [place] Height 2019-08-13 17:17:00 167.64 cm Memorial Wild Weight 2019-08-13 17:17:00 Memorial [place] BMI Calculated 2019-08-13 17:17:00 Memori al Wild Systolic (mm Hg) 2019-07-16 15:23:00 Robert rial [place] Diastolic (mm Hg) 2019-07-16 15:23:00 Mem orial Wild Heart Rate 2019-07-16 15:23:00 Memorial [place] Height 2019-07-16 15:23:00 167.64 cm Memorial [place] Weight 2019-07-16 15:23:00 [facility] BMI Calculated 2019-07-16 15:23:00 Memori al Wild Procedures Procedure Date / Time Performing Clinician Source Performed [id number] 2020-10-29 00:00:00 DEBRA Brown [facility] Measurement of 2019-07-16 16:18:00 Roslyn Her sykes post-voiding residual urine and/or bladder capacity by ultrasound, non-imaging Carpal tunnel [facility] Knee replacement [facility] n Tonsillectomy and [facility] nn adenoidectomy Hysterectomy [facility] Operation [facility] Plan of Care Planned Activity Planned Date Details Comments Source Future Scheduled 2022-11-04 COVID-19 VACCINE (#1) [facility] Test 05:00:00 [code = COVID-19 VACCINE (#1)] Future Scheduled 2022-11-04 SHINGLES VACCINES (1 Met [facility] Test 05:00:00 of 2) [code = SHINGLES VACCINES (1 of 2)] Future Scheduled 2022-11-04 65+ [facility]OC[facility]CCAL [facility] Test 05:00:00 VACCINE (2 - PCV) [code = 65+ PNEUMOCOCCAL VACCINE (2 - PCV)] Future Scheduled 2022-11-04 INFLUENZA VACCINE Method [facility] Test 05:00:00 [code = INFLUENZA VACCINE] Future Scheduled 2022-11-04 COVID-19 VACCINE (#1) [facility] Test 05:00:00 [code = COVID-19 VACCINE (#1)] Future Scheduled 2022-11-04 SHINGLES VACCINES (1 Met [facility] Test 05:00:00 of 2) [code = SHINGLES VACCINES (1 of 2)] Future Scheduled 2022-11-04 65+ PNEUMOCOCCAL Methodi Hospital Test 05:00:00 VACCINE (2 - PCV) [code = 65+ PNEUMOCOCCAL VACCINE (2 - PCV)] Future Scheduled 2022-11-04 INFLUENZA VACCINE Method [facility] Test 05:00:00 [code = INFLUENZA VACCINE] Future Scheduled 2022-07-20 COVID-19 VACCINE (#1) [facility] Test 11:25:01 [code = COVID-19 VACCINE (#1)] Future Scheduled 2022-07-20 SHINGLES VACCINES (1 Met [facility] Test 11:25:01 of 2) [code = SHINGLES VACCINES (1 of 2)] Future Scheduled 2022-07-20 65+ PNEUMOCOCCAL Methodi [facility] Test 11:25:01 VACCINE (2 - PCV) [code = 65+ PNEUMOCOCCAL VACCINE (2 - PCV)] Future Scheduled 2022-07-20 INFLUENZA VACCINE Method [facility] Test 11:25:01 [code = INFLUENZA VACCINE] Future Scheduled 2022-03-30 HEPATITIS B VACCINES Met [facility] Test 23:59:48 (1 of 3 - 3-dose series) [code = HEPATITIS B VACCINES (1 of 3 - 3-dose series)] Future Scheduled 2022-03-30 COVID-19 VACCINE (#1) Me [facility] Test 23:59:48 [code = COVID-19 VACCINE (#1)] Future Scheduled 2022-03-30 SHINGLES VACCINES (1 Met [facility] Test 23:59:48 of 2) [code = SHINGLES VACCINES (1 of 2)] Future Scheduled 2022-03-30 65+ PNEUMOCOCCAL Methodi [facility] Test 23:59:48 VACCINE (2 - PCV) [code = 65+ PNEUMOCOCCAL VACCINE (2 - PCV)] Future Scheduled 2022-03-30 INFLUENZA VACCINE Method [facility] Test 23:59:48 [code = INFLUENZA VACCINE] Encounters Start End Encounter Admission Attending Care Care Encounter Source Date/Time Date/Time Type Type Clinicians Facility Department ID 2022-01-29 Outpatient [facility] [id number] [place] 12:49:04 [id number] [facility] 2022-01-13 Outpatient [facility] [id number] [place] 15:20:56 [id number] [facility] 2020-11-26 Inpatient PHAN Hodge [facility] [id number] [facility] 14:00:00 Eagle 21 [facility] 2020-10-17 Inpatient Anurag, PHAN DANIELLECL [id number] [facility] 17:21:45 Eagle 88 [facility] 2020-10-13 Outpatient TAYA CASH MDA [id number] 13:14:56 PROVIDER Obed tidwell 2019-07-30 Outpatient SE KAEL 7500 12:25:32 [facility] 2022-10-15 2022-10-15 Outpatient JORDAN BHANDARI MDA MDA [id number] 08:07:31 09:25:58 MILDRED tidwell 2022-10-15 2022-10-15 Outpatient JORDAN BHANDARI [facility] [id number] 07:43:47 07:43:47 MILDRED tidwell 2022-08-09 2022-08-09 Ambulatory [facility] [id number] Memoria 16:00:00 16:00:00 Pre-Reg Specialty 02 l Clinic [facility] 2022-08-09 2022-08-09 Ambulatory [facility] [id number] Memoria 16:00:00 16:00:00 Pre-Reg Specialty 02 l [facility] 2022-08-09 2022-08-09 Outpatient MHIE [facility] [id number] Memoria 10:00:00 10:00:00 02 [facility] 2022-08-09 2022-08-09 Outpatient Eugene [facility] [id number] 10:00:00 10:00:00 Rachele L 02 2022-07-20 2022-07-20 Patient Rickey Rodas 1.2.840.1 [id number] Methodi 00:00:00 00:00:[id number] 3.430.2.7 Hospit a .3.224476 l .8 2022-07-20 2022-07-20 Patient Clark Rickey 1.2.840.1 [id number] Methodi 00:00:00 00:00:[id number] 3.430.2.7 Hospit a .3.359029 l .8 2022-01-07 2022-01-08 Day [facility]Flavo [facility] [id number] Memoria 12:52:00 04:59:00 Surgery r [place] 02 [facility] 2022-01-07 2022-01-08 Day nullFlavo [facility] [id number] Memoria 12:52:00 04:59:00 Surgery r [place] 02 [facility] 2022-01-07 2022-01-07 Outpatient [facility]JAMÍN [id number] [facility] 07:52:00 23:59:00 BE 2022-01-07 2022-01-07 Outpatient Benjamín [facility] [id number] 07:52:00 23:59:00 Be 02 Ahmad 2021-12-23 2021-12-23 Outpatient [id number] [facility] 09:15:00 23:59:00 BE 2021-10-23 2021-10-23 Outpatient JORDAN SHELL [facility] MDA [id number] 09:17:50 09:17:50 ALIE tidwell 2021-10-23 2021-10-23 Outpatient JORDAN SHELL [facility] MDA [id number] 08:18:09 08:18:09 ALIE tidwell 2021-01-17 2021-01-23 Inpatient BRANDEN KAPADIA [facility] [id number] [place] 00:00:00 00:00:[address] 2020-10-03 2020-10-08 Outpatient JORDAN HEATH MDA MDA [id number] 09:19:28 08:21:37 THELMA tidwell 2020-10-03 2020-10-03 Outpatient JORDAN HEATH [facility] MDA [id number] 08:59:38 23:59:00 THELMA tidwell 2019-08-13 2019-08-14 Outpatient nullFlavo [facility] 40 [id number] Memoria 17:00:00 05:59:59 r Specialty 01 l [facility] 2019-08-13 2019-08-14 Outpatient nullFlavo [facility] 40 [id number] Memoria 17:00:00 05:59:59 r Specialty 01 l [facility] 2019-08-13 2019-08-13 Outpatient Staller, MG [facility] [id number] 11:00:00 23:59:59 Rachele Jannet 2019-08-13 2019-08-13 Outpatient MHIE [facility] [id number] Memoria 11:00:00 11:00:00 01 jannet [place] 2019-08-02 2019-08-03 Outpt Diag nullFlavo [facility] [id number] Memoria 14:49:00 05:59:00 Services r Outpatient 00 l [facility] 2019-08-02 2019-08-03 Outpt Diag nullFlavo [facility] [id number] Memoria 14:49:00 05:59:00 Services r Outpatient [address] [facility] 2019-08-02 2019-08-02 Outpatient TROY KnightP OIP [id number] 08:49:00 23:59:00 Rachele L 00 2019-07-16 2019-07-17 Outpatient nullFlavo [facility] Multi 40 [id number] Memoria 15:20:00 05:59:59 r Specialty 00 l Clinic [facility] 2019-07-16 2019-07-17 Outpatient nullFlavo [facility] Multi 40 [id number] Memoria 15:20:00 05:59:59 r Specialty 00 l Clinic [facility] 2019-07-16 2019-07-16 Outpatient Eugene [facility] [id number] 09:20:00 23:59:59 Rachele L 00 2019-07-16 2019-07-16 Outpatient [facility] [id number] Memoria 09:20:00 09:20:00 00 l [place] 2018-04-27 2018-04-27 Outpatient JORDAN LOWERY [facility] [id number] [place] 10:30:01 10:30:01 JEANINE tidwell Results Test Description Test Time Test Comments Results Result Comments Source CARDIAC ENZYMES 2022-01-07 19:47:00 Test Item Value Reference Range Interpretation Comme nts HS Troponin I (test code = HS Troponin I) [facility] [id number] 19:47:00 Test Item Value Reference Range Interpretation Comments HS Troponin I (test code = HS Troponin 9 I) [facility] [id number] 19:47:00 Test Item Value Reference Range Interpretation Comments HS Troponin I (test code = HS Troponin 9 I) [facility] [id number] 19:47:00 Test Item Value Reference Range Interpretation Comments HS Troponin I (test code = HS Troponin 9 I) [facility] RNA [Presence] in Respiratory specimen by KAM with probe [id number] 23:36:23 Test Item Value Reference Range Interpretation Comments SARS-CoV-2 (COVID-19) RNA Not detected Not-Detected [Presence] in Respiratory specimen by KAM with probe detection (test code = 14829-3) Whether patient is employed in a healthcare setting (test code = 66159-0) Whether the patient has symptoms related to condition of interest (test code = 56390-1) Patient was hospitalized because of this condition (test code = 31511-9) Whether the patient was admitted to intensive care unit (ICU) for condition of interest (test code = 69811-2) Whether patient resides in a congregate care setting (test code = 49206-3) CHELI MEDINA [facility] Coronavirus 2019 [id number] 04:35:00 Test Item Value Reference Range Interpretation [...] andsh ould not be used as the hsae e basis for patient managementdecis ions. Negative [...] SARS-CoV-2 assa y in vitro. BASIC METABOLIC [id number] 16:24:00 Test Item Value Reference Range Interpretation [...] = 10.0 mg/dL 8.0-10.5 N CA) PROTHROMBIN [id number] 16:12:00 Test Item Value Reference Range Interpretation [...] (to prevent recurrent infar ct). CBC W/AUTO [id number] 16:05:00 Test Item Value Reference Range Interpretation [...] (test code NO = MDIFF) CBC W/AUTO [id number] 16:02:00 Test Item Value Reference Range Interpretation [...] code = MDIFF) - XR CHEST 1 [id number] 16:30:00 [facility] : 1940 Sex: F FAX: Eagle Sexton MD [phone] [place]: St: REG FAX: Ysabel Santacruz NP [phone] ----- Name: AUBRIE DEL TORO [facility] : 1940 Age/S: 80/F [address] [place] [address] Unit #: [id number] Loc: [place] [address] Phys: Ysabel Santacruz NP Acct: [id number] Dis Date: Status: REG [facility] PHONE #: Exam Date: 10/29/2020 1514 FAX #: [phone] Reason: post watchman EXAMS: CPT CODE: [id number] XR CHEST 1 V 89245 EXAM: XR CHEST 1 VIEW DATE: 10/29/2020 [...] changes are seen involving the aorta. SL: [id number] at 1630 Reported and signed by: Petra Rivera D.O. CC: Eagle Osborn MD;Ysabel Santacruz NP Technologist: RT John(Lela) Trnscrd Date/Time/By: 10/29/2020 (1630) : By: [email or web address] Orig Print D/T: S: 10/29/2020 (3196) PAGE 1 Signed [id number] 13:00:00 Test Item Value Reference Range Interpretation Comments ACT-ISTAT (test code 318 SEC 74-137 H Perform ed by certified = ROXIE) data processing operator at [facility] Novel Coronavirus 2019 [id number] 04:10:00 Test Item Value Reference Range Interpretation [...] n. The testing is perf ormed by kishantrachyna d in the procedures for the Lui M2000 molecular diagnostic SARS-CoV-2 renata champion in vitro. - XR CHEST 2 [id number] 14:55:00 [facility] : 1940 Sex: F FAX: Eagle Sexton MD [phone] [place]: St: PRE Name: AUBRIE DEL TORO [facility] [place] : 1940 Age/S: 80/F [address] [place] [address] Unit #: [id number] Loc: [place] [address] Phys: Eagle Osborn MD Acct: [id number] Dis Date: Status: PRE SDC PHONE #: [phone] Exam Date: 10/27/2020 1424 FAX #: [phone] Reason: PRE-OP WATCHMAN EXAMS: CPT CODE: [id number] XR CHEST 2 V 17385 EXAM: PA and lateral chest. EXAM DATE: October 27, 2020 CLINICAL HISTORY: PRE-OP WATCHMAN COMPARISON: None Heart is prominent but difficult to assess secondary to moderate left-sided pleural effusion. The right lung is unremarkable.. The left upper lung is unremarkable. Orthopedic hardware noted in the right proximal humerus. Surgical clips identified in the left axillary region. IMPRESSION: Moderate left-sided pleural effusion. at 5906 Reported and signed by: Jesi Garcia M.D. CC: Eagle Osborn MD Technologist: RT Suad(Lela) Trnscrd Date/Time/By: 10/27/2020 (0572) : By: Kenneth Orig Print D/T: S: 10/27/2020 (9424) PAGE 1 Signed ReportBASIC METABOLIC [id number] 14:35:00 Test Item Value Reference Range Interpretation [...] code = 9.3 mg/dL 8.0-10.5 N CA) [id number] 14:35:00 Test Item Value Reference Range Interpretation Comments PREALBUMIN (test code = PREALB) 18.9 mg/dL 16.0-40.0 N PROTHROMBIN [id number] 14:34:00 Test Item Value Reference Range Interpretation [...] (to prevent recurrent infar ct). CBC W/AUTO [id number] 14:19:00 Test Item Value Reference Range Interpretation [...] REQUIRED (test code = MDIFF) CBC W/AUTO [id number] 14:19:00 Test Item Value Reference Range Interpretation [...] (test code NO = MDIFF) BASIC METABOLIC [id number] 07:01:00 Test Item Value Reference Range Interpretation [...] RATE (test code = mL/min/1.7 3 GFR) v9Ossmshykw Range:Healthy A dults >90 mL/min/1.73 m2 For Chronic Kid opal Disease: Stage II Mild Decrease i n GFR 60-90 Stage III Moderate Decrea se in GFR 30-59 Stage IV Severe Decrease in GFR 15-29 Stage V Kidney Failure <15 CREATININE (test code 1.73 mg/dL 0.55-1.30 H = CREAT) CALCIUM (test code = 8.2 mg/dL 8.2-10.1 N CA) HGB [id number] 05:43:00 Test Item Value Reference Range Interpretation Comments HEMOGLOBIN (test code = HGB) 9.0 g/dL 12-16 L HEMATOCRIT (test code = HCT) 27.7 % 37-47 L URINALYSIS [id number] 14:52:00 Test Item Value Reference Range Interpretation [...] FEW /HPF NONE = BACU) COMPREHENSIVE METABOLIC [id number] 13:30:00 Test Item Value Reference Range Interpretation [...] RATE (test code = GFR) mL/mi n/1.73 s6Etejliusc Range:Healthy Adults >90 mL/min/1.73 m2 For Chronic [...] N TOTAL (test code = ALKP) PROTHROMBIN [id number] 13:30:00 Test Item Value Reference Range Interpretation [...] BLOOD, PT every other day NTHROMBOPLASTIN TIME [id number] 13:30:00 Test Item Value Reference Range Interpretation Comments PTT ACTIVATED (test code = APTT) 34.3 secs 24.9-37.0 N IS PATIENT ON ANTICOAGULANTS ? YLIST ANTICOAGULANT/ANTI PLT MEDICATION : AspirinHas Lab been notified if Patient is on Heparin Drip? NOIf Yes, order CBC, OCCULT BLOOD, PT every other day NCBC W/AUTO [id number] 13:12:00 Test Item Value Reference Range Interpretation [...] NRBC) Notes Date/Time Note Provider Source 2020-12-24 [id number] [facility]ACL 12:57:00-00:[address] [place] [address] PATIENT NAME: AUBRIE DEL TORO ADMIT DATE: 0 11/26/20 ACCOUNT NO: [id number] ROOM NO: AGE: 80 REPORT TYPE: eTRANSESOPHAGEAL ECHO REPORT SEX: F ADMITTING PHYSICIAN: ATTENDING PHYSICIAN:Eagle Osborn MD *[facility]* [address] [place] [address] Transesophageal Echocardiogram for Riley Patient: Aubrie Del Toro Study Date: 11/26/2020 BP: Location: [facility] URN: [id number] : 1940 Age: 80 Height: 66 in / 167.6 cm Gender: F Weight: 219 .5 lb / 99.8 kg BMI/BSA: 35.5 kg/m 2 / 2.2 m 2 *Ordering Physician: * Eagle Osborn *Interpreting Physician: * Anurag Guillermo MD *Fitting Room Associate: * So Dudley Indications: Post Watchman. Study data: Transesophageal Echocardiogram for Jonah malone. Consent: The risks, benefits, and alternatives to the procedu re and sedation were explained to the patient and informed consent wa s obtained. Procedure: Initial setup: The patient was brought [facility] the [facility] in the fasting state.Intravenous access was obtained. Surface E CG leads, blood pressure measurements, and pulse oximetric signals were m onitored. Sedation. Deep sedation was administered by anesthesiology petrona garvey. Transesophageal echocardiography was performed. A transesophagea l probe was inserted by the anesthesiologist. Image quality was good. Loop App 2D and 3D. Location: Procedure room. Patient status: Outpat ient. Patient room number: CV Prep. Study status: Routine. Study co mpletion: The patient tolerated the procedure well. There were no complications. Rhythm: Normal sinus rhythm. PATIENT NAME: AUBRIE DEL TORO ACCOUNT #: [id number] Findings Left ventricle: The cavity size is [...] NAME: AUBRIE DEL TORO ACCOUNT #: [id number] 2020-10-29 [id number] [facility]ACL 17:00:00-00:[address] [place] [address] PATIENT NAME: AUBRIE DEL TORO ADMIT DATE: 0 10/29/20 ACCOUNT NO: [id number] ROOM NO: KOMAL AGE: 80 REPORT TYPE: eECHOCARDIOGRAM REPORT SEX: F ADMITTING PHYSICIAN:Eagle Osborn MD ATTENDING PHYSICIAN:Eagle Osborn MD *[facility]* [address] [place] [address] Limited Transthoracic Echocardiogram Patient: Aubrie Del Toro Study Date: 10/29/2020 BP: 146 / 63 Location: [facility] URN: [id number] : 1940 Age: 80 Height: 66 in / 167.6 cm Gender: F Weight: 223 .5 lb / 101.6 kg BMI/BSA: 36.2 kg/m 2 / 2.22 m 2 *Ordering Physician: * Ysabel Santacruz NP *Interpreting Physician: * Philomena Joseph MD *Fitting Room Associate: * Becka Foreman Indications: POST WATC. Study [...] NAME: AUBRIE DEL TORO ACCOUNT #: [id number] pericardial effusion is identified. Measurements Left ventricle [...] PATIENT NAME: AUBRIE DEL TORO ACCOUNT #: [id number] 2. Left atrium: The atrium is mildly dilated. 3. Pericardium, extracardiac: A trivial pericard ial effusion is identified. Prepared and electronically signed by Philomena Joseph MD 10/29/2020 17:00 Electronically Signed by Philomena Joseph MD on 0 10/29/20 at 1700 PATIENT NAME: AUBRIE DEL TORO ACCOUNT #: [id number] 2020-10-29 [facility]L 16:36:00-00:00 [facility] ([facility]) Discharge Summary REPORT#:[id number] REPORT STATUS: Signed DATE:10/29/20 TIME: 1636 PATIENT: AUBRIE DEL TORO UNIT #: [id number] [facility] AGE: 80 SEX: F ATTEND: Narinder Osborn MD ADM AUTHOR: Stephan Ferguson * ALL edits or amendments must be made on the DocuTAP/computer document * General Information Discharge date: 10/29/20 [...] emergency. Patient stable to be discharged to [facility] for outpatient follow-up. Med Rec PCP PCP: [...] stable. Right groin suture removed by this POLICY CANCELLATION CLERK. No infect ion, bleeding, or hematoma. Dermabond applied and intact. Post watchman discharge instructions provided to the patient Patient is to follow-up with her PCP and cardiol ogist in 1 to 2 weeks Also follow-up with endless bed drum sander for the 45-day SENG after which follow-up [...] f breath lightheadedness or dizziness to her endless bed drum sander. Care Time Spent: The total ygkh-hx-qrgp or floor/unit time for th is encounter was [] minutes Discharge Instructions PCP )( Discharge to: Home/Self Care Discharge Instructions Additional Discharge Routines: PCP Follow-Up, At tending Follow-Up, Dealer Accounts Investigator Follow-Up )( Diet: Resume Home Diet/Feeds, Cardiac Follow-up Appointments PCP follow up: PCP: Eddie Solis MD PCP follow up timeframe: In 1-2 weeks Attending Physician: Attending Physician: Eagle Osborn MD Consulting provider 1: Provider 1: Eagle Osborn MD Specialty: CardiologyInterventional Consult follow up timeframe: In 1-2 weeks Electronically Signed by Stephan Ferguson on 0 11/06/20 at 1230 RPT #:[id number] END OF REPORT 2020-10-29 [facility] 16:36:00-00:00 [facility] ([facility]) Discharge Summary REPORT#:[id number] REPORT STATUS: Signed DATE:10/29/20 TIME: 1636 PATIENT: AUBRIE DEL TORO [place] UNIT #: [id number] ROOM/BED: [place] [address] : [birth year] AGE: 80 SEX: F ATTEND: Narinder Osborn MD ADM AUTHOR: Stephan Ferguson * ALL edits or amendments must be made on the el Satispayronic/computer document * General Information Discharge date: 10/29/20 [...] cleared by Dr. Osborn for discharge. Post watchman discharge instructions given to the patient who verbalized understanding. Patient is to report any chest pain shortness of breath lightness or dizziness to the cardiologis t and Call 911 with any emergency. Patient stable to be discharged to [facility] for outpatient follow-up. Med Rec PCP PCP: [...] stable. Right groin suture removed by this POLICY CANCELLATION CLERK. No infect ion, bleeding, or hematoma. Dermabond applied and intact. Post watchman discharge instructions provided to the patient Patient is to follow-up with her PCP and cardiol ogist in 1 to 2 weeks Also follow-up with endless bed drum sander for the 45-day SENG after which follow-up [...] f breath lightheadedness or dizziness to her endless bed drum sander. Care Time Spent: The total dghv-as-yzaw or floor/unit time for th is encounter was [] minutes Discharge Instructions PCP )( Discharge to: Home/Self Care Discharge Instructions Additional Discharge Routines: PCP Follow-Up, At tending Follow-Up, Dealer Accounts Investigator Follow-Up )( Diet: Resume Home Diet/Feeds, Cardiac [...] Eagle Osborn MD on 07/21 at 0952 RPT #:[id number] END OF REPORT 2020-10-29 [id number] [facility] 13:53:00-00:[address] [place] [id number] PATIENT NAME: AUBRIE DEL TORO ADMIT DATE: 0 10/29/20 ACCOUNT NO: [id number] ROOM NO: KOMAL AGE: 80 REPORT TYPE: CARDIAC CATHETERIZATION REPORT SEX : F ADMITTING PHYSICIAN:Eagle Osborn MD ATTENDING PHYSICIAN:Eagle Osborn MD PROCEDURE DATE: 10/29/2020 OPERATION PERFORMED: Left atrial appendage closu re using 31-mm Watchman FLX closure device. INDICATIONS: Atrial fibrillation with high risk for stroke and multiple falls and increased risk for falling. ACCESS: Right femoral vein, 16-Montserratian closed wit h zudglx-qf-adwdv suture. PRIMARY OPERATORS: Eagle Osborn MD LAUNDRY PRESS OPERATOR: Philomena Joseph MD COMPLICATIONS: None. BLEEDING: Less [...] vein under the ultras ound guidance. A 6-Montserratian sheath was placed and then u pgraded to a 16-Montserratian Cook sheath. Subsequently, I took the SL1 sheath into the SVC over the wire w ith a Minco needle inside descended under fluoroscopy and SENG [...] The device was prepped in the usual sunny rile fashion, introduced it through the Watchman sheath under a positive flush after a good bleed back from the sheath. Then the device was deployed under f luoroscopy and SENG guidance without complications. PASS criteria were checke d and were met. Device was released in position. Then sheath was removed an d ahmoyo-yb-vxgvr suture was applied with good hemostasis. The patient was se nt to recovery in stable condition. CONCLUSION: Successful left atrial appendage closure using a 31-mm Watchman FLX closure device. PATIENT NAME: AUBRIE DEL TORO ACCOUNT #: [id number] Dictated By: Eagle Osborn MD WT: CATH:RAFAEL/DEBRA/ANDREY Conf#: [id number]/DID#: [id number] Authenticated by Eagle Osborn MD On 11/03/2020 08:14:10 AM Electronically Signed by Ealge Osborn MD on at 0814 PATIENT NAME: AUBRIE DEL TORO ACCOUNT #: [id number] 2020-10-29 [id number] [facility] 13:49:00-00:[address] [place] [address] PATIENT NAME: AUBRIE DEL TORO ADMIT DATE: 0 10/29/20 ACCOUNT NO: [id number] ROOM NO: [facility] AGE: 80 REPORT TYPE: eELECTROCARDIOGRAM REPORT SEX: F ADMITTING PHYSICIAN:Eagle Osborn MD ATTENDING PHYSICIAN:Eagle Osborn MD Order: [id number] Test Reason : S/P WATCHMAN Test Date/Time [...] Eagle Osborn Confirmed by:MARY RIVERA MD at 4695 PATIENT NAME: AUBRIE DEL TORO ACCOUNT #: [id number] 2020-10-27 [facility] 16:23:00-00:00 [facility] ([facility]) Consultation Note - Brief REPORT#:[id number] REPORT STATUS: Signed DATE:10/27/20 TIME: 1623 PATIENT: AUBRIE DEL TORO UNIT #: [id number] ROOM/BED: : 39 AGE: 80 SEX: F ATTEND: Narinder Osborn MD ADM AUTHOR: Ramirez Andrea MD * ALL edits or amendments must be made on the el ectronic/computer document * History of Present Illness HPI [...] (DITROPAN XL) 1131 Strength: 10 MG TAB.SR.24H RABEprazolouis CORDERO (ACIPHEX) 20 MG PO DAILY 2 Strength: 20 MG TAB. 1133 [ULORIC] 1 TAB PO DAILY 01/24/19 [...] 10/27 1445 CKD (TYLENOL EXTRA PO 11/26 2359 STRENGTH) Electrolytic, Caloric, And Rj Sig/Chung Start time Last Medication Dose Route Stop Time Status Admin Lactated Ringer's 1,000 ML PREOP ONCALL 10/27 1 445 AC (LACTATED RINGERS) IV 11/26 2359 Sodium Chloride 500 ML PREOP ONCALL 10/27 1445 AC (SODIUM CHLORIDE IV 11/26 2358 0.9%) Sodium Chloride 500 ML PREOP ONCALL 10/27 1445 AC (SODIUM CHLORIDE IV 11/269 0.9%) Sodium Chloride 1,000 ML PREOP ONCALL 10/27 144 5 AC (SODIUM CHLORIDE IV 11/26 2359 0.9%) Sodium Chloride 5 ML ASDIR PRN [...] soft, non-tender, no rebound, no disten tion Neuro/FACE CLEANER: alert, oriented X 3, normal speech Extremities: [...] op evaluation and watchman shared decision making. Qow2di4 vas score is 4 Adjusted stroke rate 4.8% Has bled score 3 Bleeding rate with 1 year OAC 5.8% [employer] questionnaire was done Patient meets criteria for watchman insertion Electronically Signed by Ramirez Andrea MD on 1 at 1632 RPT #:[id number] END OF REPORT 2020-10-27 [id number] [facility] 13:55:00-00:[address] [place] [address] PATIENT NAME: AUBRIE DEL TORO ADMIT DATE: ACCOUNT NO: [id number] ROOM NO: AGE: 80 REPORT TYPE: eELECTROCARDIOGRAM REPORT SEX: F ADMITTING PHYSICIAN: ATTENDING PHYSICIAN:Eagle Osborn MD Order: [id number] Test Reason : PRE-OP WATCHMAN Test Date/Time [...] SANDRITA JEAN BAPTISTE MD ([id number]) on 10/28/19 2:46:09 PM Referred By: Eagle Osborn Confirmed by:SANDRITA KAHN MD at 1446 PATIENT NAME: AUBRIE DEL TORO ACCOUNT #: [id number] 2019-08-02 Radiation Dose CTDIVOL = 0 (mGy): DLP = 1209.39 (mGy-cm) [facility] 09:03:00-00:00 PROCEDURE INFORMATION: Exam: CT Abdomen Without And With Contrast, Sharla ho Exam date and time: 08/02/2019 9:22 AM Age: 79 years old Clinical indication: Abnormal findings; Abnormal radiologic finding of the abdomen; Radiologic exam and body structure: U/s kidneys; Patient HX: Left renal mass seen on u/s (outside per P T. ); Additional info: /with delays at 10 minutes, please comment on hu TECHNIQUE: Imaging protocol: Computed tomography images of the abdomen without and with intravenous contrast. Total DLP: 1209.39 mGy-cm Radiation optimization: All CT scans at this facility use at least one of these dose optimization techniques: automated exposure control; mA and/or kV adjustment per patient size (includes targeted e xams where dose is matched to clinical indication); or iterative reconstructio n. Contrast material: VISIPAQUE 320; Contra st volume: 100 ml; Contrast route: IV; COMPARISON: No relevant prior studies available. FINDINGS: Limitations: The lack of oral contrast limits serjio wel evaluation. Tubes, catheters and devices: None. Lungs: Compressive/subsegmental atelecta sis adjacent to the pleural effusions, these findings more pronounced on the left. Subc entimeter left lower lobe granulomas. Areas of mosaic attenuation in the v isualized lung parenchyma suggest underlying small airways disease. Scatte red interlobular septal thickening in the visualized lung parenchyma. Pleural space: Bilateral pleural effusions, smal l in size on the right and small to moderate size on the left. Heart: Small pericardial effusion. The heart is enlarged. Coronary arteries: Left coronary artery calcific ations. Liver: No abnormalities identified. Gallbladder and bile ducts: No abnormalities mayte ntified. Pancreas: Fatty replacement of the majority of t he pancreatic parenchyma. Spleen: No abnormalities identified. Adrenals: No abnormalities identified. Kidneys and ureters: 3 mm ca lcification in the lower pole of the left kidney. A 1.4 cm oval and somewhat irregular and h eterogeneous collection of contrast is seen in the lateral corticomedullary region of t he lower pole of the left kidney in the region of this calcification (e.g. series 6, image 35). The renal collecting systems are otherwise normal, and no hydroureter or other potential urinary calculi are identified. Segmental thinni ng of the left renal cortex. Stomach and bowel: No abnormalities identified. Intraperitoneal space: No free air. No abnormal fluid collection. Lymph nodes: No adenopathy. Vasculature: Normal caliber aorta. Scatt ered arterial vascular calcifications. Bones/joints: Grade 1 anterolisthesis of L4 on L5. Degenerative changes in the spine with variable degrees of spinal stenosis a t the L2-L3 through L4-L5 levels. Soft tissues: No abnormalities identified. IMPRESSION: 1. 1.4 cm focal abnormality in the lower pole of the left kidney worrisome for hydrocalyx with associated debris, stones, and/o r abnormal soft tissue including neoplasm. Papillar y necrosis should be considered in the differential diagnosis. 2. Cardiomegaly with associated coronary artery calcifications. Bilateral pleural effusions, larger on the left. A reas of interlobular septal thickening may be a manifestation of superimposed interstit ial edema. 3. Small pericardial effusion. Polo Swan MD On 08/03/2019 10:30:04; [facility] [id number] 2019-02-07 [facility] 11:03:00-00:00 [facility] ([facility]) Clinical Note REPORT#:[id number] REPORT STATUS: Signed DATE:02/07/19 TIME: 1103 PATIENT: AUBRIE DEL TORO UNIT #: [id number] ROOM/BED: [address] : 39 AGE: 78 SEX: F ATTEND: Joyce Rankin MD ADM AUTHOR: Herbert Boyd MD * ALL edits or amendments must be made on the DocuTAP/computer document * Clinical Note Note: [facility] Herbert cameron M.D. (cell text [phone]) Assessment/Plan 1.) Anemia of acute blood loss- [...] 98 Nasal cannula 02/07 0810 100 Nasal 3.880790 32 cannula 02/07 0719 Nasal 3.163785 cannula 02/07 0658 96.4 56 18 130/66 87.2 99 Nasal cannula 02/07 0407 95.7 57 14 111/49 71 100 Nasal cannula 02/07 0018 95 Nasal 3.666340 32 cannula 02/06 2233 96.8 57 16 147/64 92 100 Nasal cannula 02/06 2128 Nasal cannula 02/06 2018 98 Nasal 3.186405 32 cannula 02/06 1926 96.4 59 18 142/61 88 100 Nasal cannula 02/06 1502 96.8 53 18 160/72 103 98 Nasal cannula 02/06 1221 Nasal 3.046116 cannula 02/06 1210 100 Nasal 3.350306 32 cannula 02/06 1210 97.7 53 14 178/72 104 100 Nasal cannula 02/06 1147 97.9 60 16 155/60 95 Nasal 3.724837 cannula 02/06 1145 Nasal 3.146846 cannula 02/06 1144 49 19 159/65 95 Nasal 3.819349 cannula Gen: Alert, oriented, in mild discomfort Neck: No Masses, No Thyromegaly- CV: Regular Rate Rhythm / Edema- no significant Resp: Clear To Ascultation / Normal Respiratory Effort ABD: NonTender / NonDistended MS/Skin: No Cyanosis / No no dules / +Ankle DF/PF / nl capillary refill of toes. Other: Labs/X-ray: Laboratory Tests: 02/07 415 Chemistry Sodium (136 [...] L Herbert Alamo M.D. at 1204 RPT #:[id number] END OF REPORT 2019-02-07 [facility] 08:07:00-00:00 [facility] ([facility]) Discharge Summary REPORT#:[id number] REPORT STATUS: Signed DATE:02/07/19 TIME: 806 PATIENT: AUBRIE DEL TORO UNIT #: [id number] [facility] AGE: 78 SEX: F ATTEND: Joyce Rankin MD ADM AUTHOR: Ailyn Lambert NP * ALL edits or amendments must be made on the el ectronic/computer document * PCP PCP Discharge to: home [...] Mean Ox Delivery Rate 02/07 0719 Nasal 3.961407 cannula 02/07 0658 35.8 56 18 130/66 87.2 99 Nasal cannula 02/07 0407 35.4 57 14 111/49 71 100 Nasal cannula 02/07 0018 95 Nasal 3.240097 32 cannula 02/063 36.0 57 16 147/64 92 100 Nasal cannula 02/068 Nasal cannula 07/09 2018 98 Nasal 3.905115 32 cannula 02/06 1926 35.8 59 18 142/61 88 100 Nasal cannula 02/06 1502 36.0 53 18 160/72 103 98 Nasal cannula 02/06 1221 Nasal 3.177564 cannula 02/06 1210 100 Nasal 3.946363 32 cannula 02/06 1210 36.5 53 14 178/72 104 100 Nasal cannula 02/06 1147 36.6 60 16 155/60 95 Nasal 3.740748 cannula 02/06 1145 Nasal 3.088217 cannula 02/06 1144 49 19 159/65 95 Nasal 3.948683 cannula 02/06 1125 49 14 141/62 100 Simple 10.178688 mask 02/06 1123 Simple 10.023070 mask 02/06 1110 36.4 48 26 169/71 [...] undergo PT for gait training, mobilization , mnahs-rc-qmznmx, and strengthening. Patient was informed that they ne ed to arrange for therapy as quickly as possible. The imp ortance of early advancement of xeyru-od-ciodsv with home exercises, and physical therapy was [...] Lambert NP on 01/29 at 0810 RPT #:[id number] END OF REPORT 2019-02-07 [facility] 08:07:00-00:00 [facility] ([facility]) Discharge Summary REPORT#:[id number] REPORT STATUS: Signed DATE:02/07/19 TIME: 08 PATIENT: AUBRIE DEL TORO UNIT #: [id number] ROOM/BED: [address] : 39 AGE: 78 SEX: F ATTEND: Joyce Rankin MD ADM AUTHOR: Ailyn Lambert NP * ALL edits or amendments must be made on the el Satispayronic/computer document * PCP PCP Discharge to: home [...] low FiO2 Mean Ox Delivery Rate 02/07 719 Nasal 3.249716 cannula 02/07 0658 35.8 56 18 130/66 87.2 99 Nasal cannula 02/07 0407 35.4 57 14 111/49 71 100 Nasal cannula 02/07 0018 95 Nasal 3.606159 32 cannula 02/063 36.0 57 16 147/64 92 100 Nasal cannula 02/07 2128 Nasal cannula 02/06 2018 98 Nasal 3.711360 32 cannula 02/066 35.8 59 18 142/61 88 100 Nasal cannula / 1502 36.0 53 18 160/72 103 98 Nasal cannula 02/06 1221 Nasal 3.732576 cannula / 1210 100 Nasal 3.714592 32 cannula / 1210 36.5 53 14 178/72 104 100 Nasal cannula / 1147 36.6 60 16 155/60 95 Nasal 3.897985 cannula 02/06 1145 Nasal 3.832164 cannula / 1144 49 19 159/65 95 Nasal 3.949410 cannula / 1125 49 14 141/62 100 Simple 10.549865 mask 02/06 1123 Simple 10.283827 mask 02/06 1110 36.4 48 26 169/71 [...] undergo PT for gait training, mobilization , hvzdq-vx-mobqqq, and strengthening. Patient was informed that they ne ed to arrange for therapy as quickly as possible. The imp ortance of early advancement of skyfe-wf-zpdlrr with home exercises, and physical therapy was [...] on 01/29 at 0810 at 0830 RPT #:[id number] END OF REPORT 2019-02-06 [facility] 17:46:00-00:00 [facility] ([facility]) Clinical Note REPORT#:[id number] REPORT STATUS: Signed DATE:02/06/19 TIME: 1745 PATIENT: AUBRIE DEL TORO UNIT #: [id number] ROOM/BED: [address] : 39 AGE: 78 SEX: F ATTEND: Joyce Rankin MD ADM AUTHOR: Herbert Boyd MD * ALL edits or amendments must be made on the el Satispayronic/computer document * Clinical Note Note: [facility] Herbert cameron MD (cell text [phone]) Internal Medicine Consult at request of : Dr Joyce Rankin Chief Complaint: Right knee pain HPI: .78 yo F now s/p Right Total Knee Arthropla sty (TKA) by Dr. Rankin. Ms. Del Toro relates years of pro gressive right knee pain (recently severe, 6-03/10), worse with activity, and achy and stiff [...] Tob: none FHx: .No significant hx of DVT/PE . Alcohol: none Drugs: none Lives: with grandson Vitals: Vital Signs: Date Time Temp Pulse Resp B/P B/P Pulse O2 O2 F low FiO2 Mean Ox Delivery Rate 02/06 1502 96.8 53 18 160/72 103 98 Nasal cannula 02/06 1221 Nasal 3.930327 cannula 02/06 1210 97.7 53 14 178/72 104 100 Nasal cannula 02/06 1147 97.9 60 16 155/60 95 Nasal 3.808504 cannula 02/06 1145 Nasal 3.748216 cannula 02/06 1144 49 19 159/65 95 Nasal 3.959855 cannula 02/06 1125 49 14 141/62 100 Simple 10.699185 mask 02/06 1123 Simple 10.231813 mask 02/06 1110 97.5 48 26 169/71 100 Simple 10.000 000 mask 02/06 0753 96.7 51 16 178/70 [...] on Rx. Herbert Alamo M.D. Thanks! 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 POSTOPERATIVE DIAGNOSIS: Right knee end-stage de generative joint disease. PROCEDURE PERFORMED: Right total knee arthroplas ty. SURGEON: Steve Rankin MD LAUNDRY PRESS OPERATOR: Jane Neumann PA-C Knee arthroplasty requires an doctor's assistant for hold ing of retractors for wide exposure so that the surgeon has both hands free to perform the surgery. In addition, with extremity kael emmie, the doctor's assistant positions and stabilizes the leg in order for the surgeon to use his hands to ope rate. Retraction for exposure and visualization, and stabi lization of the extremity are vital to the procedure and not possible without an doctor's assistant. Dr. Rankin is not part of any residency or fellowship training progr [facility] and therefore required the help of the doctor's assistant listed above for this surgery. ANESTHESIA: [...] patella was r etracted laterally by the doctor's assistant and the leg was held in position by the doctor's assistant. The proximal medial tibia wa s denuded, with release of medial soft-tissues, the PATIENT NAME: AUBRIE DEL TORO ACCOUNT #: [id number] extent of which was dictated by the [...] stabilized in the appropriate position by the doctor's assistant for tibial preparation. The tib ia [...] The trial patellar component was placed. Knee pvflg-sd-ufstdc, stability, and patellar tr acking were found to be excellent. The trials were removed, and as the cement was m ixed, all cut surfaces were thoroughly washed and dried. The doctor's assistant held the retractors for exposure and [...] NAME: AUBRIE DEL TORO ACCOUNT #: [id number] closure. Sterile dressing was applied. The patient was awakened and transferred to the recovery room in stable condition. ESTIMATED BLOOD LOSS: 50 mL. SPECIMENS: None. Dictated By: Steve Rankin MD WT: OP:TAMMY/FRANCISCA./NTS Conf#: [id number]/DID#: [id number] Authenticated by Steve Rankin MD On 02/08/20 08:57:22 AM at 0857 PATIENT NAME: AUBRIE DEL TORO ACCOUNT #: [id number] 2019-02-06 [facility] 10:19:00-00:00 [facility] ([facility]) Op/Inv Procedure Note - Brief REPORT#:[id number] REPORT STATUS: Signed DATE:02/06/19 TIME: 1019 PATIENT: AUBRIE DEL TORO UNIT #: [id number] ROOM/BED: [place] [address] : 39 AGE: 78 SEX: F ATTEND: Joyce Rankin MD ADM AUTHOR: Steve Rankin MD * ALL edits or amendments must be made on the el ectronic/computer document * Op/Inv Proc Note - Brief TEXT Brief Op/Inv Procedure Note Note details: Pre-procedure diagnosis: Right Knee Degenerative Joint Disease Post-procedure diagnosis: Same Procedures performed: Right Total Knee Arthropla sty Primary Surgeon: LAITH Mat Man: [KAYDEN SMYTH] Findings: Severe degenerativ e disease see dictated operative report for details Complications: None Estimated Blood Loss in ml's: [50] cc Specimens removed/altered: None at 1019 RPT #:[id number] END OF REPORT
[2023-01-12 14:31] LABS: Absolute Lymphocytes (CBC) 0.6 K/uL (0.7-4.9); Hematocrit 31.7 % (36.0-45.0); Lymphocytes % 6.7 % (15.3-44.8); MPV 9.8 fL (7.6-11.3); RBC Red Blood Cell Count 3.64 M/uL (3.86-4.86)
[2023-01-12 14:35] LABS: Protime INR 1.01
[2023-01-12 14:43] LABS: Albumin 2.9 g/dL (3.4-5.0); Bilirubin Direct 0.1 mg/dL (0-0.2); Bilirubin Indirect, Calculated 0.2 mg/dL (0.2-0.8); Bilirubin Total 0.3 mg/dL (0.2-1.0); Magnesium 2.7 mg/dL (1.6-2.4); Potassium 4.9 mEq/L (3.5-5.1); Protein, Total 6.1 g/dL (6.4-8.2); Troponin High Sensitivity 15.6 pg/mL (<58.9)
--- NOTE | 2023-01-12 15:23 | RAD REPORT ---
EXAM DESCRIPTION: Natan Single View01/12/2023 2:38 pm CLINICAL HISTORY: MALAISE COMPARISON: 01/05/2023 and 12/29/2022 TECHNIQUE: Portable AP view of the chest. FINDINGS: Stable combination of retrocardiac opacification and effusion at the left. Component of sm all right pleural effusion is probably improved. No new focal airspace opacities. The cardiomediastin al contours are unremarkable. Left axillary surgical clips and right shoulder arthroplasty hardware again seen. Sclerotic changes along the head of the left humerus, stable, may relate to sequelae of a vascular necrosis. IMPRESSION: Some improvement of small effusion. Stable retrocardiac opacification and left-sided eff usion.
[2023-01-12 15:55] LABS: Specific Gravity 1.015 (1.005-1.030); Urine Bacteria None Seen /HPF (<20); Urine Bilirubin NEGATIVE (Negative); Urine Blood Negative (Negative); Urine Clarity Turbid (Clear); Urine Color Yellow (Yellow); Urine Glucose NEGATIVE (Negative); Urine Mucus Slight /HPF (None Seen); Urine Protein NEGATIVE (Negative); Urine RBC <5 /HPF (None Seen); Urine Urobilinogen Normal (Normal); Urine WBC Clump Occasional /HPF (None Seen)
--- NOTE | 2023-01-12 16:04 | ER ---
Nurse's Notes [facility] Name: Aubrie Del Toro Age: 82 yrs Sex: Female : 1940 Arrival Date: 01/12/2023 Time: 13:47 Bed 14 Private MD: Diagnosis: Multidrug-resistant urinary tract infection, generalized weakness Presentation: 01/12 13:50 Chief complaint: EMS states: "Pt was admitted here last week for UTI and low Iron. Pt mb9 d/c yesterday and started having diarrhea and weakness last night.". Coronavirus screen: Vaccine status: Patient reports receiving the 2nd dose of the covid vaccine. Ebola Screen: No symptoms or risks identified at this time. Initial Sepsis Screen: Does the patient meet any 2 criteria? No. Patient's initial sepsis screen is negative. Does the patient have a suspected source of infection? No. Patient's initial sepsis screen is negative. Risk Assessment: Do you want to hurt yourself or someone else? Patient reports no desire to harm self or others. Onset of symptoms was January 12, 2023. 13:50 Method Of Arrival: EMS: [facility] mb9 13:50 Acuity: [facility] mb9 13:53 Care prior to arrival: Medication(s) given: 250 mL of LR IV initiated. 20 GA, in the mb9 right forearm, Glucose check: 111. Triage Assessment: 13:52 General: Appears in no apparent distress. Behavior is calm, cooperative. Pain: Denies mb9 pain. Respiratory: Airway is patent Respiratory effort is even, unlabored, Respiratory pattern is regular, symmetrical. GI: Reports diarrhea. Derm: Skin is pink, warm \\T\\ dry. Historical: - Allergies: 13:51 No Known Allergies; mb9 - PMHx: 13:51 Atrial fibrillation; lymphedema; bladder issues; GERD; Cataracts; Headaches; mb9 Hypertension; Hypothyroidism; l eblow melanoma; neuropathy; - PSHx: 13:51 Total abdominal hysterectomy; Appendectomy; mb9 - Immunization history:: Adult Immunizations up to date. - Social history:: Smoking status: Patient denies any tobacco usage or history of. Screenin:17 [facility] ED Fall Risk Assessment (Adult) History of falling in the last 3 months, db including since admission Yes- single mechanical fall (1 pt) Confusion or Disorientation Yes (5 pts) Intoxicated or Sedated No (0 pts) Impaired Gait Yes (1 pt) Mobility Assist Device Used Yes (1 pt) Altered Elimination No (0 pt) Score/Fall Risk Level 3 or more points = High Risk Oriented to surroundings, Maintained a safe environment. Abuse screen: Denies threats or abuse. Denies injuries from another. Nutritional screening: No deficits noted. Tuberculosis screening: No symptoms or risk factors identified. Assessment: 14:15 Reassessment: Patient appears in no apparent distress at this time. Patient and/or db family updated on plan of care and expected duration. Pain level reassessed. Patient is alert, oriented x 3, equal unlabored respirations, skin warm/dry/pink. diarrhea and weakness feeling more tired than normal. General: Appears in no apparent distress. comfortable, Behavior is calm, cooperative. Neuro: Level of Consciousness is awake, alert, obeys commands, patient falling asleep while I was in room. . Oriented to person, place, time, situation. 14:15 Reassessment: Patient's grandson Grupo Washburn [phone]. db 17:01 Reassessment: Patient appears in no apparent distress at this time. Patient and/or db family updated on plan of care and expected duration. Pain level reassessed. puriwick applied for patient comfort. 18:23 Reassessment: Dr. Solis at patient bedside. db 18:23 Reassessment: Patient appears in no apparent distress at this time. Patient and/or db family updated on plan of care and expected duration. Pain level reassessed. Patient is alert, oriented x 3, equal unlabored respirations, skin warm/dry/pink. resting quietly. Vital Signs: 13:50 BP 109 / 42; Pulse 52; Resp 16; Temp 97.9(O); Pulse Ox 100% on R/A; Weight 83.91 kg; mb9 Height 5 ft. 6 in. ; Pain 0/10; 14:00 BP 127 / 48; Pulse 50; Resp 15; Pulse Ox 95% on R/A; db 15:30 BP 142 / 79; Pulse 52; Resp 15; Pulse Ox 94% on R/A; db 16:00 BP 112 / 44; Pulse 49; Resp 16; Pulse Ox 91% on R/A; db 17:00 BP 135 / 40; Pulse 49; Resp 16; Pulse Ox 95% on 2 lpm NC; db 18:00 BP 129 / 42; Pulse 46; Resp 16; Pulse Ox 99% on 2 lpm NC; db 22:00 BP 125 / 89; Pulse 58; Resp 17; Temp 98; Pulse Ox 99% on R/A; rv 13:50 Body Mass Index 29.86 (83.91 kg, 167.64 cm) mb9 13:50 Pain Scale: Adult mb9 Vitals: 16:00 Cardiac Rhythm Assessment Sinus rivera. db [place] Coma Score: 22:00 Eye Response: spontaneous(4). Motor Response: obeys commands(6). Verbal Response: rv oriented(5). Total: 15. ED Course: 13:50 Patient arrived in ED. bd 13:50 Malini Rivera MD is Attending Physician. sp3 13:50 Arm band placed on. mb9 13:51 Triage completed. mb9 13:52 Cecelia Cantor RN is Primary Nurse. db 13:52 Placed in gown. Bed in low position. Call light in reach. Side rails up X 1. Client mb9 placed on continuous cardiac and pulse oximetry monitoring. NIBP monitoring applied. 14:15 Maintain EMS IV. Dressing intact. Good blood return noted. Site clean \\T\\ dry. Gauge \\T\\ db site: 20 G right forearm. 14:40 XRAY Chest (1 view) In Process Unspecified. EDMS 15:39 Straight cath inserted, using sterile technique, 14 Fr. Specimen obtained. db 16:02 Eddie Solis MD is Hospitalizing Provider. sp3 18:58 Report given to DARIELA Riuz. db 22:16 No provider procedures requiring assistance completed. Patient admitted, IV remains in rv place. Administered Medications: 16:25 Drug: Meropenem IV 500 mg Route: IV; Rate: calculated rate; Site: right antecubital; db 17:02 Follow up: Response: No adverse reaction; IV Status: Completed infusion; IV Intake: db 100ml Medication: 15:40 VIS not applicable for this client. db Intake: 17:02 IV: 100ml; Total: 100ml. db Outcome: 16:03 Decision to Hospitalize by Provider. sp3 22:17 Admitted to Tele accompanied by tech, via stretcher, room 410, with chart, Report rv called to Ryan LYLE 22:17 Condition: good 22:17 Instructed on the need for admit. 22:17 Patient left the ED. rv Signatures: Dispatcher [employer] EDMS Macey Tate Ronaldo, RN RN rv Malini Rivera MD MD sp3 Cecelia Cantor RN RN Di Malhotra, RN RN mb9 Corrections: (The following items were deleted from the chart) 15:40 14:17 [facility] ED Fall Risk Assessment (Adult) History of falling in the last 3 months, db including since admission No falls in past 3 months (0 pts) Confusion or Disorientation Yes (5 pts) Intoxicated or Sedated No (0 pts) Impaired Gait Yes (1 pt) Mobility Assist Device Used Yes (1 pt) Altered Elimination No (0 pt) Score/Fall Risk Level 3 or more points = High Risk Oriented to surroundings, Maintained a safe environment, db
--- NOTE | 2023-01-12 16:04 | EDPHYS ---
Physician Documentation [facility] Name: Aubrie Del Toro Age: 82 yrs Sex: Female : 1940 Arrival Date: 01/12/2023 Time: 13:47 Bed 14 Private MD: ED Physician Malini Rivera HPI: 01/12 13:51 This 82 yrs old Female presents to ER via EMS with complaints of Generalized weakness sp3 and diarrhea. 13:51 . sp3 13:52 82-year-old female with extensive past medical history including recent UTI with sp3 antibiotic resistant species that was susceptible only to meropenem which she received 3 days worth of treatment before developing neurological symptoms and subsequently was stopped now presents to the ED referred by her PCP Dr. Solis for diarrhea and continuing recurrent urinary symptoms. She also had interval pulmonary edema which was treated with Lasix successfully over the last week. Dr. Solis called the ED referring patient to be evaluated for C. difficile, electrolyte abnormality and generalized weakness. Patient complaints of said weakness and mild urinary complaints. She also received a PRBC blood transfusion during her last admission to the ER for anemia. ROS negative for any other symptoms.. Historical: - Allergies: 13:51 No Known Allergies; mb9 - PMHx: 13:51 Atrial fibrillation; lymphedema; bladder issues; GERD; Cataracts; Headaches; mb9 Hypertension; Hypothyroidism; l eblow melanoma; neuropathy; - PSHx: 13:51 Total abdominal hysterectomy; Appendectomy; mb9 - Immunization history:: Adult Immunizations up to date. - Social history:: Smoking status: Patient denies any tobacco usage or history of. ROS: 13:53 Constitutional: Negative for fever, chills, and weight loss, Eyes: Negative for injury, sp3 pain, redness, and discharge, ENT: Negative for injury, pain, and discharge, Neck: Negative for injury, pain, and swelling, Cardiovascular: Negative for chest pain, palpitations, and edema, Respiratory: Negative for shortness of breath, cough, wheezing, and pleuritic chest pain, Back: Negative for injury and pain, MS/Extremity: Negative for injury and deformity, Skin: Negative for injury, rash, and discoloration, Neuro: Negative for headache, weakness, numbness, tingling, and seizure, Psych: Negative for depression, anxiety, suicide ideation, homicidal ideation, and hallucinations, Allergy/Immunology: Negative for hives, rash, and allergies, Endocrine: Negative for neck swelling, polydipsia, polyuria, polyphagia, and marked weight changes. 13:53 All other systems are negative. Exam: 14:21 ECG was reviewed by the Attending Physician. EKG demonstrates atrial fibrillation with sp3 ventricular capture of 50 bpm, normal axis, normal QRS, nonspecific diffuse ST/T changes without evidence of acute ischemia. Vital Signs: 13:50 BP 109 / 42; Pulse 52; Resp 16; Temp 97.9(O); Pulse Ox 100% on R/A; Weight 83.91 kg; mb9 Height 5 ft. 6 in. ; Pain 0/10; 14:00 BP 127 / 48; Pulse 50; Resp 15; Pulse Ox 95% on R/A; db 15:30 BP 142 / 79; Pulse 52; Resp 15; Pulse Ox 94% on R/A; db 16:00 BP 112 / 44; Pulse 49; Resp 16; Pulse Ox 91% on R/A; db 17:00 BP 135 / 40; Pulse 49; Resp 16; Pulse Ox 95% on 2 lpm NC; db 18:00 BP 129 / 42; Pulse 46; Resp 16; Pulse Ox 99% on 2 lpm NC; db 22:00 BP 125 / 89; Pulse 58; Resp 17; Temp 98; Pulse Ox 99% on R/A; rv 13:50 Body Mass Index 29.86 (83.91 kg, 167.64 cm) mb9 13:50 Pain Scale: Adult mb9 [place] Coma Score: 22:00 Eye Response: spontaneous(4). Motor Response: obeys commands(6). Verbal Response: rv oriented(5). Total: 15. MDM: 13:51 Patient medically screened. sp3 13:53 Data reviewed: vital signs, nurses notes, EMS record, old medical records, lab test sp3 result(s), EKG, radiologic studies. ED course: 82-year-old female with history of extensive past medical history as documented above now with generalized weakness and diarrhea. Will evaluate for infectious diarrhea including C. difficile, electrolyte abnormality, acute coronary syndrome, other viral process, GI pathology, sepsis, among others. I am not highly suspicious for significant cardiac pathology, vascular pathology including aortic disease, CVA/TIA spectrum, or any other critical pathology at this time. Disposition TBD work-up and patient course.. 16:01 ED course: Patient's white blood cell count is 9.5, hemoglobin is 10 and BNP is sp3 slightly elevated. Urinalysis demonstrates significant UTI with positive leuk esterase and greater than 50 WBCs per high-powered field. Past urine culture is sensitive for Levaquin and meropenem for she is on amiodarone therefore Levaquin is contraindicated. We will start her back on meropenem and admit to Dr. Solis her PCP.. 01/12 13:51 Order name: Basic Metabolic Panel; Complete Time: 15:09 sp3 01/12 13:51 Order name: CBC with Diff; Complete Time: 15: sp3 01/12 13:51 Order name: LFT's; Complete Time: 15: sp3 01/12 13:51 Order name: Magnesium; Complete Time: 15: sp3 01/12 13:51 Order name: NT PRO-BNP; Complete Time: 15: sp3 01/12 13:51 Order name: PT-INR; Complete Time: 15: sp3 01/12 13:51 Order name: Troponin HS; Complete Time: 15:09 sp3 01/12 13:51 Order name: CDIFF sp3 01/12 13:51 Order name: UAM; Complete Time: 15:57 sp3 01/12 15:59 Order name: Urine Culture EDNV 01/12 16:10 Order name: Basic Metabolic Panel EDNV 01/12 16:10 Order name: Basic Metabolic Panel EDNV 01/12 16:10 Order name: CBC with Automated Diff EDMS 01/12 16:10 Order name: CBC with Automated Diff EDMS 01/12 13:51 Order name: XRAY Chest (1 view); Complete Time: 15:49 sp3 01/12 13:51 Order name: EKG; Complete Time: 13:52 sp3 01/12 16:10 Order name: Regular EDNV 01/12 13:51 Order name: Cardiac monitoring; Complete Time: 14:15 sp3 01/12 13:51 Order name: EKG - Nurse/Tech; Complete Time: 14:15 sp3 01/12 13:51 Order name: IV Saline Lock; Complete Time: 14: sp3 01/12 13:51 Order name: Labs collected and sent; Complete Time: 14:15 sp3 01/12 13:51 Order name: O2 Sat Monitoring; Complete Time: 14:15 sp3 Administered Medications: 16:25 Drug: Meropenem IV 500 mg Route: IV; Rate: calculated rate; Site: right antecubital; db 17:02 Follow up: Response: No adverse reaction; IV Status: Completed infusion; IV Intake: db 100ml Disposition Summary: 01/12/23 16:03 Hospitalization Ordered Hospitalization Status: Inpatient Admission sp3 Provider: Eddie Solis sp3 Location: Telemetry/[facility] (Inpatient) sp3 Condition: Stable sp3 Problem: an acute exacerbation sp3 Symptoms: have worsened sp3 Bed/Room Type: Standard sp3 Room Assignment: 410(01/12/23 21:37) Diagnosis - Multidrug-resistant urinary tract infection, generalized weakness sp3 Forms: - Medication Reconciliation Form sp3 - SBAR form sp3 Signatures: Dispatcher [employer] Cammie Youngblood RN RN cg Malini Rivera MD MD sp3 Cecelia Cantor RN RN db Breneman, Mary Beth, RN RN mb9 Corrections: (The following items were deleted from the chart) 21:37 16:03 sp3 cg
[2023-01-12] MEDS ORDERED: Meropenem 500 MG VIAL IV ONE (16:22)
[2023-01-12] MEDS ORDERED: NA CHLORIDE 0.9% 100 ML ONE (16:23)
[2023-01-12 18:30] VITALS: BMI 29.8
[2023-01-12] MEDS: NACHLORIDE 0.45% 1,000 ML IV SCH (22:42)
[2023-01-12] MEDS: Meropenem 500 MG in NA CHLORIDE 0.9% 100 ML IV SCH (22:42)
[2023-01-12] MEDS: ACETAMINOPHEN 500 MG TAB PO PRN (23:06)
[2023-01-13 06:36] LABS: Absolute Lymphocytes (CBC) 0.6 K/uL (0.7-4.9); Hematocrit 31.6 % (36.0-45.0); Lymphocytes % 4.4 % (15.3-44.8); MCV 87.9 fL (80-100); MPV 10.1 fL (7.6-11.3); RBC Red Blood Cell Count 3.59 M/uL (3.86-4.86)
[2023-01-13 06:50] LABS: Potassium 4.9 mEq/L (3.5-5.1)
--- NOTE | 2023-01-13 07:21 | EKG ---
Test Date: 2023-01-12 Test Time: 14:11:43 Water Purification Chemist: JERAMY MEASUREMENT RESULTS: Intervals: Rate: 50 MN: 216 QRSD: 100 QT: 500 QTc: 455 May: P: 49 MN: 216 QRS: 41 T: 55 INTERPRETIVE STATEMENTS: Sinus bradycardia with 1st degree AV block Otherwise normal ECG Compared to ECG 08/09/2022 20:54:34 First degree AV block now present Sinus rhythm no longer present Electronically Signed On 01-13-23 07:19:57 CDT by Júnior Burns
[2023-01-13] MEDS: Meropenem 500 MG in NA CHLORIDE 0.9% 100 ML IV SCH ×2 (07:49→20:11)
[2023-01-13] MEDS ORDERED: GUAIFENESIN/DM 5 ML UCUP PO PRN (07:53)
[2023-01-13] MEDS ORDERED: HOME MED 1 EA UNK (Rabeprazole Sodium [Rabeprazole Sodium] 20 MG Tablet.Dr) PO SCH (09:00)
[2023-01-13] MEDS: MONTELUKAST 10 MG TAB PO SCH (10:38)
[2023-01-13] MEDS: AMIODARONE HCL 200 MG TAB PO SCH (10:38)
[2023-01-13] MEDS: MAGNESIUM OXIDE 400 MG TAB PO SCH (10:38)
[2023-01-13] MEDS: LIOTHYRONINE SOD 5 MCG TAB PO SCH (10:39)
[2023-01-13] MEDS: TORSEMIDE 20 MG TAB PO SCH (10:39)
[2023-01-13] MEDS: levETIRAcetam 500 MG TAB PO SCH ×2 (10:40→20:09)
[2023-01-13] MEDS: PREGABALIN 150 MG CAP PO SCH ×2 (10:41→20:10)
[2023-01-13] MEDS: MEMANTINE HCL 10 MG TABLET PO SCH ×2 (10:41→20:10)
[2023-01-13] MEDS: ASPIRIN EC 81 MG TAB PO SCH (10:41)
[2023-01-13] MEDS: POTASSIUM CL SA 10 MEQ TAB PO SCH (10:42)
[2023-01-13] MEDS: ursodioL 300 MG CAP PO SCH ×2 (10:42→20:10)
[2023-01-13] MEDS: HYDRALAZINE HCL 25 MG TABLET PO SCH ×2 (10:43→20:09)
[2023-01-13] MEDS: Mupirocin NASAL 2 APPL/1 GM TUBE NAS SCH ×2 (10:43→20:11)
[2023-01-13] MEDS: LOSARTAN POTASSIUM 50 MG TABLET PO SCH (10:51)
[2023-01-13] MEDS: PANTOPRAZOLE 40MG TABLET PO SCH (10:51)
--- NOTE | 2023-01-13 11:06 | RAD REPORT ---
EXAM DESCRIPTION: CT - Abdomen Pelvis Wo Contrast - 01/13/2023 10:23 am CLINICAL HISTORY: FEVER. Concern for colovaginal fistula COMPARISON: CT ABD PELVIS W CONTRAST dated 04/12/2013; Chest Single View dated 01/12/2023 TECHNIQUE: Thin cut axial CT imaging of the abdomen and pelvis was performed without IV contrast. Re ctally administered contrast was utilized for fistula evaluation. Multiplanar reformats were generate d and reviewed. All CT scans are performed using dose optimization technique as appropriate and may include automated exposure control or mA/KV adjustment according to patient size. FINDINGS: Left-sided pleural effusion with underlying airspace opacification. Small pleural effusion layering posteriorly on the right The liver, spleen, and pancreas show no suspicious findings. Gallbladder sludge. No evidence of intra or extrahepatic biliary ductal dilation. Symmetric renal contour, without suspicious parenchymal findings within limits of noncontrast techniq ue. No evidence of radiopaque calculi or hydroureteronephrosis. No dilated bowel loops or bowel wall thickening. Rectally administered contrast, extends to the mid d escending colon, without evidence of extraluminal extension, colovaginal, or rectovaginal fistula opa cification. Stable calcifications at the base of the bladder, nonspecific. Moderate fat stranding in the presacral space. No free air, free fluid or other inflammatory stranding. No hernia, mass or bulk y lymphadenopathy. The urinary bladder is without significant finding. No suspicious bony findings. IMPRESSION: No findings to suggest fistula formation. Nonspecific presacral space fat stranding, could relate to nonspecific proctitis. No other acute intra- abdominal process. Bilateral pleural effusions as above larger on the left, with underlying airspace opacification.
--- NOTE | 2023-01-13 17:25 | RAD REPORT ---
EXAM DESCRIPTION: RAD - Chest Single View - 01/13/2023 5:17 pm CLINICAL HISTORY: Picc line placement COMPARISON: Chest Single View dated 01/12/2023; Chest Pa And Lat (2 Views) dated 01/05/2023; Chest Sing le View dated 12/29/2022; Chest Single View dated 08/15/2022 FINDINGS: Portable chest was obtained following placement of a left upper extremity PICC line. The c atheter tip projects over the SVC..
--- NOTE | 2023-01-13 19:51 | P.PN ---
Subjective Date of Service: 01/13/23 Chief Complaint: WEAKNESS Subjective: Improving SHE FEELS BETTER THAN YESTERDAY. SHE HAS NO PAIN. Review of Systems 10-point ROS is otherwise unremarkable General: Weakness Physical Examination - Vital Signs Temperature: 97.8 F Blood Pressure: 143/63 Pulse: 67 Respirations: 16 Pulse Ox (%): 93 - Physical Exam General: Alert, Mild distress, Other (GEN WEAK) HEENT: Atraumatic, PERRLA, EOMI Neck: Supple, JVD not distended Respiratory: Clear to auscultation bilaterally, Normal air movement Cardiovascular: Regular rate/rhythm, Normal S1 S2 Gastrointestinal: Normal bowel sounds, No tenderness Musculoskeletal: No tenderness Integumentary: No rashes Neurological: Normal speech, Normal tone, Normal affect Lymphatics: No axilla or inguinal lymphadenopathy - Studies Medications List Reviewed: Yes Assessment And Plan - Current Problems (Diagnosis) (1) Diarrhea Current Visit: Yes Status: Acute Plan: DAUGHTER CALLED SHE WAS WEAK, HAVING CHILLS AND THEY WERE GOING ON VACATION. HERE AT [facility] SHE HAS NOT HAD DIARRHEA. IF SHE DOES WE WILL CHECK FOR C DIFF TOXIN. 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 BOTH SENSITIVE ONLY TO MERREM. SHE CAN'T TAKE LEVAQUIN SHE IS ON AMIODARONE. SHE HAS TWITCHES ON MERREM BUT WE HAVE NO CHOICE. SHE UNDERSTANDS. (3) Debilitated Current Visit: Yes Status: Chronic Plan: REFER TO [facility]. SHE MAY STAY THERE FOR LIFETIME. FAMILY WENT ON VACATION YESTERDAY. THERE IS NO ONE CLOSE TO HER WHO CAN TAKE CARE OF HER. (4) Dehydration Current Visit: No Status: Acute
[2023-01-13] MEDS: ROSUVASTATIN 10 MG TAB PO SCH (20:10)
[2023-01-13] MEDS: NACHLORIDE 0.45% 1,000 ML IV SCH (22:10)
[2023-01-14] MEDS: LEVOTHYROXINE SOD 0.112 MG TAB PO SCH (05:53)
[2023-01-14] MEDS: MAGNESIUM OXIDE 400 MG TAB PO SCH (09:00)
[2023-01-14] MEDS: levETIRAcetam 500 MG TAB PO SCH ×2 (09:00→20:15)
[2023-01-14] MEDS: HYDRALAZINE HCL 25 MG TABLET PO SCH ×2 (09:01→20:16)
[2023-01-14] MEDS: MONTELUKAST 10 MG TAB PO SCH (09:01)
[2023-01-14] MEDS: POTASSIUM CL SA 10 MEQ TAB PO SCH (09:01)
[2023-01-14] MEDS: PANTOPRAZOLE 40MG TABLET PO SCH (09:01)
[2023-01-14] MEDS: LOSARTAN POTASSIUM 50 MG TABLET PO SCH (09:01)
[2023-01-14] MEDS: PREGABALIN 150 MG CAP PO SCH ×2 (09:02→20:17)
[2023-01-14] MEDS: TORSEMIDE 20 MG TAB PO SCH (09:02)
[2023-01-14] MEDS: ASPIRIN EC 81 MG TAB PO SCH (09:03)
[2023-01-14] MEDS: ursodioL 300 MG CAP PO SCH ×2 (09:03→20:17)
[2023-01-14] MEDS: AMIODARONE HCL 200 MG TAB PO SCH (09:03)
[2023-01-14] MEDS: MEMANTINE HCL 10 MG TABLET PO SCH ×2 (09:03→20:16)
[2023-01-14] MEDS: LIOTHYRONINE SOD 5 MCG TAB PO SCH (09:03)
[2023-01-14] MEDS: Meropenem 500 MG in NA CHLORIDE 0.9% 100 ML IV SCH (09:03)
[2023-01-14] MEDS: Mupirocin NASAL 2 APPL/1 GM TUBE NAS SCH ×2 (09:04→20:18)
--- NOTE | 2023-01-14 10:39 | P.PN ---
Subjective Date of Service: 01/14/23 Chief Complaint: Urinary tract infection weakness shaking spells Patient still feels very weak shaking spells occurring for the past 2 weeks has any fever or chills Review of Systems General: Weakness Physical Examination - Vital Signs Temperature: 97.5 F Blood Pressure: 127/59 Pulse: 61 Respirations: 18 Pulse Ox (%): 92 - Physical Exam General: Alert, Oriented x3 HEENT: Atraumatic Respiratory: Clear to auscultation bilaterally Cardiovascular: Normal S1 S2, Edema Gastrointestinal: Normal bowel sounds, Soft and benign - Studies Medications List Reviewed: Yes Assessment And Plan - Current Problems (Diagnosis) (1) Recurrent UTI Current Visit: Yes Status: Chronic Plan: Patient is 82 years of age admitted with weakness 3+ gram-negative rods isolated in the urine is pending patient is on meropenem can complaining of generalized shaking spells his white count is mildly elevated renal function is improving DC torsemide continue with IV fluids meropenem signs oxygenation satisfactory physical therapy to ambulate the patient and senior care placement chest x-ray clear abdominal CT scan is also negative no fistula diarrhea seem to have resolved C. difficile pending
[2023-01-14] MEDS: NACHLORIDE 0.45% 1,000 ML IV SCH (18:18)
[2023-01-14] MEDS: ROSUVASTATIN 10 MG TAB PO SCH (20:14)
[2023-01-14] MEDS: Meropenem 1,000 MG in NA CHLORIDE 0.9% 100 ML IV SCH (20:19)
[2023-01-14] MEDS: ACETAMINOPHEN 500 MG TAB PO PRN (20:21)
[2023-01-15] MEDS: TRAMADOL HCL 50 MG TAB PO PRN ×2 (00:51→22:14)
[2023-01-15] MEDS: LEVOTHYROXINE SOD 0.112 MG TAB PO SCH (06:33)
[2023-01-15] MEDS: MONTELUKAST 10 MG TAB PO SCH (08:02)
[2023-01-15] MEDS: PANTOPRAZOLE 40MG TABLET PO SCH (08:02)
[2023-01-15] MEDS: POTASSIUM CL SA 10 MEQ TAB PO SCH (08:02)
[2023-01-15] MEDS: levETIRAcetam 500 MG TAB PO SCH ×2 (08:03→22:15)
[2023-01-15] MEDS: AMIODARONE HCL 200 MG TAB PO SCH (08:03)
[2023-01-15] MEDS: MAGNESIUM OXIDE 400 MG TAB PO SCH (08:03)
[2023-01-15] MEDS: MEMANTINE HCL 10 MG TABLET PO SCH ×2 (08:03→22:14)
[2023-01-15] MEDS: ASPIRIN EC 81 MG TAB PO SCH (08:04)
[2023-01-15] MEDS: ursodioL 300 MG CAP PO SCH ×2 (08:04→22:15)
[2023-01-15] MEDS: PREGABALIN 150 MG CAP PO SCH ×2 (08:04→22:27)
[2023-01-15] MEDS: HYDRALAZINE HCL 25 MG TABLET PO SCH ×2 (08:04→22:14)
[2023-01-15] MEDS: LOSARTAN POTASSIUM 50 MG TABLET PO SCH (08:04)
[2023-01-15] MEDS: LIOTHYRONINE SOD 5 MCG TAB PO SCH (08:05)
[2023-01-15] MEDS: Meropenem 1,000 MG in NA CHLORIDE 0.9% 100 ML IV SCH ×2 (08:05→22:11)
[2023-01-15] MEDS: Mupirocin NASAL 2 APPL/1 GM TUBE NAS SCH ×2 (08:05→22:16)
--- NOTE | 2023-01-15 09:41 | P.PN ---
Subjective Date of Service: 01/15/23 Chief Complaint: Urinary tract infection Patient has had no further shaking spells complain of problems with neuropathy and pain in her feet has no other complaint Review of Systems Unremarkable Physical Examination - Vital Signs Temperature: 97.6 F Blood Pressure: 163/64 Pulse: 55 Respirations: 16 Pulse Ox (%): 96 - Physical Exam General: Alert, In no apparent distress, Oriented x3 Respiratory: Clear to auscultation bilaterally Cardiovascular: No edema, Regular rate/rhythm, Normal S1 S2 - Studies Microbiology Data (last 24 hrs): 01/12/23 15:30 Clean Catch Urine [place] Count - Final >100,000 CFU/ML. 01/12/23 15:30 Clean Catch Urine - Final Acinetobacter Melo/Haem Medications List Reviewed: Yes Assessment And Plan - Current Problems (Diagnosis) (1) Recurrent UTI Current Visit: Yes Status: Chronic Plan: Patient has a resistant infection in the urine Acinetobacter is sensitive meropenem/plan to DC IV fluids DC telemetry DC IV fluids patient has chronic lymphedema ambulate and for discharge planning Discharge Plan: Intermediate Plan to discharge in: 48 Hours
[2023-01-15] MEDS: ROSUVASTATIN 10 MG TAB PO SCH (22:27)
[2023-01-15] MEDS: ACETAMINOPHEN 500 MG TAB PO PRN (22:27)
[2023-01-16] MEDS: LEVOTHYROXINE SOD 0.112 MG TAB PO SCH (07:08)
[2023-01-16] MEDS: AMIODARONE HCL 200 MG TAB PO SCH (08:20)
[2023-01-16] MEDS: LOSARTAN POTASSIUM 50 MG TABLET PO SCH (08:20)
[2023-01-16] MEDS: MAGNESIUM OXIDE 400 MG TAB PO SCH (08:21)
[2023-01-16] MEDS: LIOTHYRONINE SOD 5 MCG TAB PO SCH (08:21)
[2023-01-16] MEDS: ursodioL 300 MG CAP PO SCH ×2 (08:22→22:00)
[2023-01-16] MEDS: POTASSIUM CL SA 10 MEQ TAB PO SCH (08:22)
[2023-01-16] MEDS: TORSEMIDE 20 MG TAB PO SCH (08:22)
[2023-01-16] MEDS: ASPIRIN EC 81 MG TAB PO SCH (08:24)
[2023-01-16] MEDS: MEMANTINE HCL 10 MG TABLET PO SCH ×2 (08:25→21:56)
[2023-01-16] MEDS: PREGABALIN 150 MG CAP PO SCH ×2 (08:25→21:57)
[2023-01-16] MEDS: HYDRALAZINE HCL 25 MG TABLET PO SCH ×2 (08:26→21:55)
[2023-01-16] MEDS: Mupirocin NASAL 2 APPL/1 GM TUBE NAS SCH ×2 (08:26→22:01)
[2023-01-16] MEDS: PANTOPRAZOLE 40MG TABLET PO SCH (08:26)
[2023-01-16] MEDS: MONTELUKAST 10 MG TAB PO SCH (08:26)
[2023-01-16] MEDS: Meropenem 1,000 MG in NA CHLORIDE 0.9% 100 ML IV SCH ×2 (08:27→21:30)
[2023-01-16] MEDS: levETIRAcetam 500 MG TAB PO SCH ×2 (08:32→21:55)
--- NOTE | 2023-01-16 09:54 | P.PN ---
Subjective Date of Service: 01/16/23 Chief Complaint: Urinary tract infection Doing well no complaints eating IV meropenem Review of Systems Unremarkable Physical Examination - Vital Signs Temperature: 96.9 F Blood Pressure: 144/64 Pulse: 60 Respirations: 18 Pulse Ox (%): 93 - Physical Exam General: Alert, Oriented x1, Cooperative Cardiovascular: No edema, Regular rate/rhythm, Normal S1 S2, Edema - Studies Microbiology Data (last 24 hrs): 01/12/23 15:30 Clean Catch Urine [place] Count - Final >100,000 CFU/ML. 01/12/23 15:30 Clean Catch Urine - Final Acinetobacter Melo/Haem Medications List Reviewed: Yes Assessment And Plan - Current Problems (Diagnosis) (1) Recurrent UTI Current Visit: Yes Status: Chronic Plan: And is currently receiving IV meropenem stable signs all satisfactory await n ursing home placement and IV antibiotics for at least 2 weeks renal function is improving patient complaining of discomfort in the neck order some cyclobenzaprine as needed
[2023-01-16 11:01] LABS: Potassium 4.2 mEq/L (3.5-5.1)
[2023-01-16] MEDS: CYCLOBENZAPRINE 10 MG TAB PO PRN (21:54)
[2023-01-16] MEDS: ROSUVASTATIN 10 MG TAB PO SCH (21:56)
[2023-01-16] MEDS: ACETAMINOPHEN 500 MG TAB PO PRN (21:58)
[2023-01-16] MEDS: TRAMADOL HCL 50 MG TAB PO PRN (22:00)
[2023-01-17] MEDS: LEVOTHYROXINE SOD 0.112 MG TAB PO SCH (07:31)
[2023-01-17] MEDS: HYDRALAZINE HCL 25 MG TABLET PO SCH ×2 (08:35→20:29)
[2023-01-17] MEDS: MONTELUKAST 10 MG TAB PO SCH (08:36)
[2023-01-17] MEDS: LOSARTAN POTASSIUM 50 MG TABLET PO SCH (08:36)
[2023-01-17] MEDS: MAGNESIUM OXIDE 400 MG TAB PO SCH (08:36)
[2023-01-17] MEDS: PANTOPRAZOLE 40MG TABLET PO SCH (08:37)
[2023-01-17] MEDS: TORSEMIDE 20 MG TAB PO SCH (08:37)
[2023-01-17] MEDS: PREGABALIN 150 MG CAP PO SCH ×2 (08:37→20:27)
[2023-01-17] MEDS: AMIODARONE HCL 200 MG TAB PO SCH (08:38)
[2023-01-17] MEDS: ursodioL 300 MG CAP PO SCH ×2 (08:38→20:30)
[2023-01-17] MEDS: MEMANTINE HCL 10 MG TABLET PO SCH ×2 (08:38→20:28)
[2023-01-17] MEDS: ASPIRIN EC 81 MG TAB PO SCH (08:39)
[2023-01-17] MEDS: POTASSIUM CL SA 10 MEQ TAB PO SCH (08:39)
[2023-01-17] MEDS: LIOTHYRONINE SOD 5 MCG TAB PO SCH (08:39)
[2023-01-17] MEDS: levETIRAcetam 500 MG TAB PO SCH ×2 (08:40→20:28)
[2023-01-17] MEDS: Meropenem 1,000 MG in NA CHLORIDE 0.9% 100 ML IV SCH ×2 (08:41→20:30)
[2023-01-17] MEDS: Mupirocin NASAL 2 APPL/1 GM TUBE NAS SCH ×2 (08:41→20:28)
[2023-01-17] MEDS: CYCLOBENZAPRINE 10 MG TAB PO PRN ×2 (08:51→21:14)
--- NOTE | 2023-01-17 10:48 | P.PN ---
Subjective Date of Service: 01/17/23 Chief Complaint: Urinary tract infection Patient denies any complaint today. She has been tolerating her diet. No issues overnight. Physical Examination - Vital Signs Temperature: 96.9 F Blood Pressure: 128/70 Pulse: 49 Respirations: 17 Pulse Ox (%): 95 - Physical Exam General: Alert, In no apparent distress, Oriented x3 HEENT: Mucous membr. moist/pink Neck: JVD not distended Respiratory: Clear to auscultation bilaterally, Normal air movement Cardiovascular: No edema, Regular rate/rhythm, Normal S1 S2 Gastrointestinal: Soft and benign, Non-distended, No tenderness Musculoskeletal: No swelling Integumentary: No rashes, No cyanosis Neurological: Normal strength at 5/5 x4 extr - Studies Medications List Reviewed: Yes Assessment And Plan - Current Problems (Diagnosis) (1) MDR Acinetobacter baumannii infection Current Visit: Yes Status: Acute (2) Chronic atrial fibrillation Current Visit: Yes Status: Acute (3) Recurrent UTI Current Visit: Yes Status: Chronic (4) Diarrhea Current Visit: Yes Status: Acute (5) Debilitated Current Visit: Yes Status: Chronic (6) GABBY (acute kidney injury) Current Visit: Yes Status: Acute - Plan Patient states the diarrhea has stopped. PICC line placed for IV meropenem. Patient planned for 2 weeks of IV meropenem. Disposition to [facility] pending insurance authorization. Patient is bradycardic today. Other medical conditions are stable. Continue current home medications. Continue PT.
[2023-01-17] MEDS: ROSUVASTATIN 10 MG TAB PO SCH (20:28)
[2023-01-17] MEDS: ACETAMINOPHEN 500 MG TAB PO PRN (21:14)
[2023-01-18] MEDS: LEVOTHYROXINE SOD 0.112 MG TAB PO SCH (06:22)
[2023-01-18] MEDS: Meropenem 1,000 MG in NA CHLORIDE 0.9% 100 ML IV SCH ×2 (09:31→21:04)
[2023-01-18] MEDS: ursodioL 300 MG CAP PO SCH ×2 (09:32→21:23)
[2023-01-18] MEDS: HYDRALAZINE HCL 25 MG TABLET PO SCH ×2 (09:33→21:06)
[2023-01-18] MEDS: PANTOPRAZOLE 40MG TABLET PO SCH (09:33)
[2023-01-18] MEDS: ASPIRIN EC 81 MG TAB PO SCH (09:33)
[2023-01-18] MEDS: MONTELUKAST 10 MG TAB PO SCH (09:34)
[2023-01-18] MEDS: POTASSIUM CL SA 10 MEQ TAB PO SCH (09:34)
[2023-01-18] MEDS: PREGABALIN 150 MG CAP PO SCH ×2 (09:34→21:22)
[2023-01-18] MEDS: LOSARTAN POTASSIUM 50 MG TABLET PO SCH (09:35)
[2023-01-18] MEDS: TORSEMIDE 20 MG TAB PO SCH (09:35)
[2023-01-18] MEDS: MAGNESIUM OXIDE 400 MG TAB PO SCH (09:35)
[2023-01-18] MEDS: LIOTHYRONINE SOD 5 MCG TAB PO SCH (09:37)
[2023-01-18] MEDS: AMIODARONE HCL 200 MG TAB PO SCH (09:37)
[2023-01-18] MEDS: levETIRAcetam 500 MG TAB PO SCH ×2 (09:37→21:06)
[2023-01-18] MEDS: MEMANTINE HCL 10 MG TABLET PO SCH ×2 (09:38→21:05)
[2023-01-18 11:26] LABS: Absolute Lymphocytes (CBC) 0.6 K/uL (0.7-4.9); Hematocrit 30.8 % (36.0-45.0); Lymphocytes % 9.2 % (15.3-44.8); MCV 87.2 fL (80-100); MPV 9.6 fL (7.6-11.3); RBC Red Blood Cell Count 3.53 M/uL (3.86-4.86)
[2023-01-18 11:52] LABS: Potassium 4.1 mEq/L (3.5-5.1)
--- NOTE | 2023-01-18 16:59 | P.CNS ---
Date of Consult: 01/18/23 Reason for Consult: Recurrent UTI Requesting Physician: Eddie Solis V Chief Complaint: Urinary tract infection History of Present Illness: 82-year-old G0, P0 woman with history of AMEE presents today in consult placed because of recurrent UTI. 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 She has had symptomatic UTIs in the past, and they typically present with dysuria. She had a symptomatic urinary tract infection in August 2022, but more recently, she suffered a fall about a month ago. Because of that fall, she was assessed and found to have bacteriuria and was treated. She denied any associated flank pain, fever/chills, nausea/vomiting. She did have some issues with diarrhea and generalized weakness. She has also had some issues with trouble walking, which she attributes to her lymphedema and neuropathy. She has a history of nephrolithiasis managed by a urologist over 5 to 7 years ago. Past medical history: Hypertension, hypercholesterolemia, sarcoidosis, hypothyroidism, ulcerative colitis, pulmonary fibrosis, diastolic CHF, A-fib, CKD Past surgical history: Appendectomy and total abdominal hysterectomy for fibroid uterus among her abdominal surgeries. Other orthopedic and ocular surgeries performed, noncontributory. No known drug allergies Social history: Never smoker and no organic chemical exposures or pesticide exposures Family history: No history of urologic malignancy Examination: Well-appearing, well-developed, well-nourished, no acute distress Alert, awake, oriented x3 No dyspnea or sign of respiratory distress lying in the hospital bed No cervical/supraclavicular adenopathy or thyromegaly Abdomen soft, mildly tender to palpation in the suprapubic region, nondistended Pure wick catheter in place draining clear yellow urine No calf or lower extremity tenderness CT abdomen and pelvis with oral and rectal contrast 01/13/2023: Contrast extends to the mid descending colon without evidence of extraluminal extension, colovaginal, or rectovaginal fistula. Stable calcifications at the base of the bladder, nonspecific. 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 -Recommend bladder scan PVR to rule out overflow incontinence while using the PureWick system. As long as PVR less than 200, no specific concern. If PVR greater than 400 cc, urethral Mcqueen catheter should immediately be placed. Between 200-400 cc, monitoring is in order. -I counseled patient on the procedure and recommended outpatient follow-up for cystoscopy to assess the calcification seen on CT as well as the source of her recurrent UTIs Allergies No Known Allergies Allergy (Verified 01/01/21 20:48) Home medications list reviewed: Yes Home Medications: Liothyronine Sodium [Cytomel] 5 mcg PO DAILY 01/01/21 ursodioL [Ursodiol] 300 mg PO BID 01/01/21 Pregabalin [Lyrica*] 150 mg PO BID 02/19/21 Rabeprazole Sodium 20 mg PO DAILY 10/06/21 Levothyroxine [Synthroid*] 112 mcg PO [id number] 05/25/22 Rosuvastatin [Crestor*] 5 mg PO BEDTIME 05/25/22 Losartan Potassium 100 mg PO DAILY #90 tab 05/28/22 Potassium Chloride 20 meq PO DAILY 08/11/22 Hydralazine HCl 100 mg PO BID #180 08/16/22 Amiodarone HCl [Cordarone*] 1 tab PO DAILY 12/30/22 Aspirin [Aspirin EC] 1 tab PO DAILY 12/30/22 Magnesium Citrate and Oxide [Magnesium] 1 cap PO DAILY 12/30/22 Memantine HCl 1 tab PO BID 12/30/22 Methenamine Hippurate 1 tab PO BID 12/30/22 Montelukast [Singulair*] 1 tab PO DAILY 12/30/22 Torsemide [Demadex*] 1 tab PO DAILY 12/30/22 Guaif/Dm [Robitussin Dm*] 10 ml PO Q6H PRN 01/11/23 Potassium Oral Tab [Klor-Con 10 mEq Tab*] 10 meq PO DAILY #90 tab 01/11/23 levETIRAcetam [Keppra*] 250 mg PO BID tab 01/11/23 - Past Medical/Surgical History Diabetic: No -: CHF -: Hypothyroidism -: GERD -: Neuropathy -: Insomnia -: Hyperlipidemia -: overactive bladder -: Lymphedema -: Right Shoulder Replacement -: Bilateral knee replacement -: Hysterectomy -: ULE Melanoma removal -: Tonsilectomy -: Adnoidectomy -: Bilateral eye surgery r/t strabismus - Family History Mother Medical History: Hypertension, Stroke, Other (see notes) Notes: COPD Father Medical History: Heart disease, Other (see notes) Notes: CHF - Social History Smoking Status: Never smoker Alcohol use: No CD- Drugs: No Caffeine use: Yes Physical Examination Temp Pulse Resp BP Pulse Ox 98.0 F 52 16 145/65 H 95 01/18/23 16:00 01/18/23 16:00 01/18/23 16:00 01/18/23 16:00 01/18/23 16:00 - Problems (1) Incontinence of urine Current Visit: Yes Status: Acute Qualifiers: Urinary Incontinence type: unspecified incontinence Qualified Code(s): R32 - Unspecified urinary incontinence (2) Complicated UTI (urinary tract infection) Current Visit: Yes Status: Acute Conclusions/Impression: See assessment and plan in HPI section Critical Care: No Time Spent Managing Pts care (In Minutes): 45
[2023-01-18] MEDS: POLYETHYL GLY 3350 17 GM/DOSE PO PRN (21:05)
[2023-01-18] MEDS: ROSUVASTATIN 10 MG TAB PO SCH (21:22)
--- NOTE | 2023-01-18 21:23 | P.PN ---
Subjective Date of Service: 01/18/23 Chief Complaint: Urinary tract infection Subjective: Improving SHE FEELS BETTER THAN YESTERDAY. SHE HAS NO PAIN. SHE IS STABLE BUT WEAK DENIES PAIN. NO FEVER. Physical Examination - Vital Signs Temperature: 97.1 F Blood Pressure: 124/57 Pulse: 48 Respirations: 18 Pulse Ox (%): 98 - Physical Exam General: Oriented x3, Mild distress HEENT: Atraumatic, PERRLA, EOMI Neck: Supple, JVD not distended Respiratory: Clear to auscultation bilaterally, Normal air movement Cardiovascular: Regular rate/rhythm, Normal S1 S2 Gastrointestinal: Normal bowel sounds, No tenderness Musculoskeletal: No tenderness Integumentary: No rashes Neurological: Normal speech, Normal tone, Normal affect Lymphatics: No axilla or inguinal lymphadenopathy - Studies Medications List Reviewed: Yes Assessment And Plan - Current Problems (Diagnosis) (1) Diarrhea Current Visit: Yes Status: Acute Plan: DAUGHTER CALLED SHE WAS WEAK, HAVING CHILLS AND THEY WERE GOING ON VACATION. HERE AT [facility] SHE HAS NOT HAD DIARRHEA. IF SHE DOES WE WILL CHECK FOR C DIFF TOXIN. 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 BOTH SENSITIVE ONLY TO MERREM. SHE CAN'T TAKE LEVAQUIN SHE IS ON AMIODARONE. SHE HAS TWITCHES ON MERREM BUT WE HAVE NO CHOICE. SHE UNDERSTANDS. URINARY RETENTION PATIENT HAS PEARCE NOW. DR. GUADALUPE IS ON THE CASE. (3) Debilitated Current Visit: Yes Status: Chronic Plan: REFER TO [facility]. SHE MAY STAY THERE FOR LIFETIME. FAMILY WENT ON VACATION YESTERDAY. THERE IS NO ONE CLOSE TO HER WHO CAN TAKE CARE OF HER. (4) Dehydration Current Visit: No Status: Acute
[2023-01-18] MEDS: TRAMADOL HCL 50 MG TAB PO PRN (21:36)
[2023-01-18] MEDS: CYCLOBENZAPRINE 10 MG TAB PO PRN (21:36)
[2023-01-18] MEDS: ACETAMINOPHEN 500 MG TAB PO PRN (21:36)
[2023-01-19] MEDS: LEVOTHYROXINE SOD 0.112 MG TAB PO SCH (06:53)
[2023-01-19] MEDS: ACETAMINOPHEN 500 MG TAB PO PRN (07:14)
[2023-01-19] MEDS: TRAMADOL HCL 50 MG TAB PO PRN (07:14)
[2023-01-19] MEDS: MONTELUKAST 10 MG TAB PO SCH (08:53)
[2023-01-19] MEDS: MAGNESIUM OXIDE 400 MG TAB PO SCH (08:53)
[2023-01-19] MEDS: PANTOPRAZOLE 40MG TABLET PO SCH (08:53)
[2023-01-19] MEDS: LOSARTAN POTASSIUM 50 MG TABLET PO SCH (08:53)
[2023-01-19] MEDS: AMIODARONE HCL 200 MG TAB PO SCH (08:53)
[2023-01-19] MEDS: PREGABALIN 150 MG CAP PO SCH ×2 (08:53→20:34)
[2023-01-19] MEDS: TORSEMIDE 20 MG TAB PO SCH (08:53)
[2023-01-19] MEDS: ASPIRIN EC 81 MG TAB PO SCH (08:53)
[2023-01-19] MEDS: HYDRALAZINE HCL 25 MG TABLET PO SCH (08:54)
[2023-01-19] MEDS: levETIRAcetam 500 MG TAB PO SCH ×2 (08:54→20:35)
[2023-01-19] MEDS: POTASSIUM CL SA 10 MEQ TAB PO SCH (08:54)
[2023-01-19] MEDS: Meropenem 1,000 MG in NA CHLORIDE 0.9% 100 ML IV SCH ×2 (08:54→20:34)
[2023-01-19] MEDS: MEMANTINE HCL 10 MG TABLET PO SCH ×2 (08:54→20:34)
[2023-01-19] MEDS: LIOTHYRONINE SOD 5 MCG TAB PO SCH (08:55)
[2023-01-19] MEDS: ursodioL 300 MG CAP PO SCH ×2 (08:55→20:34)
[2023-01-19] MEDS ORDERED: NA CHLORIDE 0.9% 250 ML IV ONE (11:52)
[2023-01-19] MEDS ORDERED: LOSARTAN POTASSIUM 50 MG TABLET PO SCH (17:19)
--- NOTE | 2023-01-19 17:22 | P.PN ---
Subjective Date of Service: 01/19/23 Chief Complaint: Urinary tract infection Subjective: Improving SHE FEELS BETTER THAN YESTERDAY. SHE HAS NO PAIN. SHE IS STABLE BUT WEAK DENIES PAIN. NO FEVER. GRACIELA FELT OKAY THIS AM. THIS AFTERNOON HER BP DROPPED TO 80 SYTOLIC. SHE HAS BEEN ON BP MEDS BP HAS BEEN VERY HIGH BEFORE. Review of Systems 10-point ROS is otherwise unremarkable Physical Examination - Vital Signs Temperature: 97.7 F Blood Pressure: 136/51 Pulse: 50 Respirations: 16 Pulse Ox (%): 95 - Physical Exam General: Alert, In no apparent distress HEENT: Atraumatic, PERRLA, EOMI Neck: Supple, JVD not distended Respiratory: Clear to auscultation bilaterally, Normal air movement Cardiovascular: Regular rate/rhythm, Normal S1 S2 Gastrointestinal: Normal bowel sounds, No tenderness Musculoskeletal: No tenderness Integumentary: No rashes Neurological: Normal speech, Normal tone, Normal affect Lymphatics: No axilla or inguinal lymphadenopathy - Studies Medications List Reviewed: Yes Assessment And Plan - Current Problems (Diagnosis) (1) Diarrhea Current Visit: Yes Status: Resolved Plan: DAUGHTER CALLED SHE WAS WEAK, HAVING CHILLS AND THEY WERE GOING ON VACATION. HERE AT [facility] SHE HAS NOT HAD DIARRHEA. IF SHE DOES WE WILL CHECK FOR C DIFF TOXIN. 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 BOTH SENSITIVE ONLY TO MERREM. SHE CAN'T TAKE LEVAQUIN SHE IS ON AMIODARONE. SHE HAS TWITCHES ON MERREM BUT WE HAVE NO CHOICE. SHE UNDERSTANDS. URINARY RETENTION PATIENT HAS PEARCE NOW. DR. GUADALUPE IS ON THE CASE. (3) Debilitated Current Visit: Yes Status: Chronic Plan: REFER TO [facility]. SHE MAY STAY THERE FOR LIFETIME. FAMILY WENT ON VACATION YESTERDAY. THERE IS NO ONE CLOSE TO HER WHO CAN TAKE CARE OF HER. I ADVISE NE BUT SHE REFUSES TO GO AND THEN SHE GETS WEAK OR SICK- SHOWS UP IN ER AGAIN. SHE HAS TOO MANY MEDICAL ISSUES TO BE ALONE AT HOME. (4) Dehydration Current Visit: No Status: Acute Plan: HOLD TORSEMIDE UNTIL BP COMES UP STOP HYDRALAZINE. FOLLOW UP BP
[2023-01-19] MEDS: ROSUVASTATIN 10 MG TAB PO SCH (20:34)
[2023-01-20] MEDS: LEVOTHYROXINE SOD 0.112 MG TAB PO SCH (06:17)
[2023-01-20 06:29] LABS: Absolute Lymphocytes (CBC) 0.9 K/uL (0.7-4.9); Hematocrit 27.3 % (36.0-45.0); MCV 86.4 fL (80-100); MPV 9.2 fL (7.6-11.3); RBC Red Blood Cell Count 3.16 M/uL (3.86-4.86)
[2023-01-20 06:53] LABS: Potassium 4.3 mEq/L (3.5-5.1)
[2023-01-20] MEDS: POLYETHYL GLY 3350 17 GM/DOSE PO PRN (08:50)
[2023-01-20] MEDS: LIOTHYRONINE SOD 5 MCG TAB PO SCH (08:50)
[2023-01-20] MEDS: POTASSIUM CL SA 10 MEQ TAB PO SCH (08:51)
[2023-01-20] MEDS: MAGNESIUM OXIDE 400 MG TAB PO SCH (08:51)
[2023-01-20] MEDS: PANTOPRAZOLE 40MG TABLET PO SCH (08:51)
[2023-01-20] MEDS: levETIRAcetam 500 MG TAB PO SCH (08:51)
[2023-01-20] MEDS: PREGABALIN 150 MG CAP PO SCH (08:51)
[2023-01-20] MEDS: ASPIRIN EC 81 MG TAB PO SCH (08:51)
[2023-01-20] MEDS: MEMANTINE HCL 10 MG TABLET PO SCH (08:51)
[2023-01-20] MEDS: AMIODARONE HCL 200 MG TAB PO SCH (08:51)
[2023-01-20] MEDS: MONTELUKAST 10 MG TAB PO SCH (08:51)
[2023-01-20] MEDS: ursodioL 300 MG CAP PO SCH (08:51)
[2023-01-20] MEDS: Meropenem 1,000 MG in NA CHLORIDE 0.9% 100 ML IV SCH (08:52)
[2023-01-20 08:59] VITALS: O2SAT 93
[2023-01-20 12:11] VITALS: BP 124/51; TEMP 97.3
== END 2023-01-20 16:03 | DRG 690 ==
LOC: ER 13:47 → ERHOLD 16:08 → 4TH 21:51
PROVIDERS: ADMIT Internal Medicine; ATTEND Internal Medicine
PROC: 02HV33Z Insertion of Infusion Device into Superior Vena Cava, Percutaneous Approach (ICD-10-PCS; principal; 2023-01-13)
DX: N39.0 Urinary tract infection, site not specified (principal); I50.32 Chronic diastolic (congestive) heart failure; I48.20 Chronic atrial fibrillation, unspecified; N17.9 Acute kidney failure, unspecified; I13.0 Hypertensive heart and chronic kidney disease with heart failure and stage 1 through stage 4 chronic kidney disease, or unspecified chronic kidney disease; N18.9 Chronic kidney disease, unspecified; E78.00 Pure hypercholesterolemia, unspecified; I89.0 Lymphedema, not elsewhere classified; E86.0 Dehydration; E03.9 Hypothyroidism, unspecified; K21.9 Gastro-esophageal reflux disease without esophagitis; R32 Unspecified urinary incontinence; R33.9 Retention of urine, unspecified; Z90.49 Acquired absence of other specified parts of digestive tract; Z90.710 Acquired absence of both cervix and uterus; Z79.890 Hormone replacement therapy; Z79.82 Long term (current) use of aspirin; Z79.899 Other long term (current) drug therapy; Z96.653 Presence of artificial knee joint, bilateral; Z96.611 Presence of right artificial shoulder joint
CPT/HCPCS: 36415; 36569; 51702; 71045; 74176; 80048; 80076; 81001; 83735; 83880; 84484; 85025; 85610; 87077; 87086; 87088; 87186; 93005; 94760; 96365; 97110; 97116; 97162; 97530; 99285; J2185; J7050

== ENCOUNTER 2023-02-04 19:48 | Inpatient (IN) | payer BC ==
--- OUTSIDE RECORDS SUMMARY | 2023-02-04 19:56 | XMS REPORT | Continuity of Care Document ---
:1940 Author Organization [facility] t Address [address] [place] [address] Care Team Providers Name Role Phone [phone] Primary Care Physician Unavailable Eddie Solis Attending Clinician Unavailable Eagle Osborn Attending Clinician Unavailable SYSTEM, [...] Policy Number Effective Date Expiration Date S na[place] [id number] 2017 00:00:00 [place] [id number] 2022 ADVANTAGE 00:00:00 [place] POS [id number] 2014 00:00:00 MEDICARE PART A [id number] 2004 AND B 00:00:00 Problems Condition Condition Condition Status Onset Resolution Last Treating Co mments Source Name Details Category Date Date Treatment Clinician Date CICATRICIA CICATRICI Diagnosis Active 2022-01-11 Memoria L AL 01-06 16:39:00 l ECTROPION ECTROPION 00:00: Herm eder OF LEFT OF LEFT 00 LOWER EYEL LOWER EYEL Active 01/06/2022 [facility] CHF CHF Disease Active Method[facility] (congestiv (congestiv [...] Added automatic ally from request for surgery [id number] N28.89 - N28.89 - Diagnosis Active 2018-082019-08-02 Memoria OTHER OTHER 08:59:00 l SPECIFIED SPECIFIED 00:01: Herm eder DISORDERS DISORDERS 00 OF K OF K Active 07/31/2019 JEANNETTED Ramer N28.89-OTH N28.89-OT Diagnosis Active 2018-082019-09-15 Memoria ER HER 15:33:00 l SPECIFIED SPECIFIED 00:00: Herm eder DISORDERS DISORDERS 00 OF KIDN OF KIDN Active 07/30/2019 [facility] Malignant Malignant Problem Resolve 2022-01-10 Memoria melanoma melanoma d 00:19:24 l (disorder) (disorder) He rmann Resolved Problem 01/10/2022 left arm 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, [facility] Hyperchole Problem Active 2022-08-11 M emoria sterolemia Hyperchole 23:35:27 l (disorder) sterolemia He rmann (disorder) Active Problem 08/11/2022 [facility] Hypertensi Problem Active 2022-08-11 M emoria ve Hypertensi 23:35:27 l disorder, ve Barnum systemic disorder, arterial systemic (disorder) arterial (disorder) Active Problem 08/11/2022 [facility], [facility] Hypothyroi Hypothyro Problem Active 2022-08-11 Memoria dism idism 23:35:27 l (disorder) (disorder) He rmann Active Problem 08/11/2022 [facility], [facility] Neuropathy Neuropath Problem Active 2022-08-11 Memoria (disorder) y 23:35:27 l (disorder) Kobi n Active Problem 08/11/2022 [facility] Osteoarthr Problem Active 2022-08-11 M emori itis Osteoarthr 23:35:27 l (disorder) itis Kobi n (disorder) Active Problem 08/11/2022 [facility] Simple Simple Problem Active 2022-08-11 Robert micky obesity obesity 23:35:27 l (disorder) (disorder) He rmann Active Problem 08/11/2022 [facility], [facility] Sleep Sleep Problem Active 2022-08-11 Memor ia apnea apnea 23:35:27 l (finding) (finding) Herm eder Active Problem 08/11/2022 does not use cpap [facility] Urinary Urinary Problem Active 2022-08-11 Me moria incontinen incontinen 23:35:27 l ce ce Wild (finding) (finding) Active Problem 08/11/2022 [facility] OTHER OTHER Diagnosis Active 2019-09-15 Mem oria SPECIFIED SPECIFIED 15:33:00 l DISORDERS DISORDERS Herm eder OF KIDNEY OF KIDNEY AND AND Active [facility] UNSPECIFIE UNSPECIFI Diagnosis Active 2019-09-15 Memoria D URINARY ED URINARY 15:33:00 l INCONTINEN INCONTINEN He rmeder CE CE Active [facility] CONSTANT CONSTANT Diagnosis Active 2021-12-30 Memoria EXOPHTHALM EXOPHTHALM 09:38:00 l OS, OS, Wild BILATERAL BILATERAL Active [facility] History of Past Illness Condition Condition Condition Status Onset Resolution Last Treating Co mments Source Name Details Category Date Date Treatment Clinician Date Exposure Exposure Problem 2022-01-10 2022-01-10 Memoria keratoconj keratoconj 01-07 00:19:24 00:19:24 l unctivitis unctivitis 19:00: He sarah , , 00 bilateral bilateral 01/07/2022 01/10/2022 [facility] Unspecifie Unspecifi Problem 2022-01-10 2022-01-10 Memoria d ed 01-07 00:19:24 00:19:24 l entropion entropion 19:00: Herm eder of right of right 00 lower lower eyelid eyelid 01/07/2022 01/10/2022 [facility] Unspecifie Unspecifi Problem 2022-01-10 2022-01-10 Memoria d ed 01-07 00:19:24 00:19:24 l ectropion ectropion 19:00: Herm eder of left of left 00 lower lower eyelid eyelid 01/07/2022 01/10/2022 [facility] Unspecifie Unspecifi Problem 2022-01-10 2022-01-10 Memoria d ed 01-07 00:19:24 00:19:24 l exophthalm exophthalm 18:59: He sarah os os 00 01/07/2022 01/10/2022 [facility] Brow Brow Problem 2022-01-10 2022-01-10 M emoria ptosis, ptosis, 01-07 00:19:24 00:19:24 l unspecifie unspecifie 18:59: He rmann d d 00 01/07/2022 01/10/2022 [facility] Unspecifie Unspecifi Problem 2022-01-10 2022-01-10 Memoria d ptosis ed ptosis 01-07 00:19:24 00:19:24 l of of 18:59: Wild bilateral bilateral 00 eyelids eyelids 01/07/2022 01/10/2022 [facility] Allergies, Adverse Reactions, Alerts Allergy Allergy Status Severity Reaction(s) Onset Inactive Treating Comm ents Source Name Type Date Date Clinician No Known DA Active [facility] Allergie 329 Clear s 00:00: Collins 00 [facility] No Known DA Active [facility] Allergie 329 Clear s 00:00: Collins 00 [facility] INDOMETH DRUG Active Other MD ACIN INGREDI [...] 7-13 Clear Allergie 00:00: Collins s 00 [facility] No Known DA Active [facility] Drug 7-13 Clear Allergie 00:00: Collins s 00 [facility] No Known No Known Active Memori a Medicati Medicati l on on Barnum Allergie Allergie s s Social History Social Habit Start Date Stop Date Quantity Comments Source Gender identity [facility] of Social 2022-11-03 2022-11-03 [facility] function 00:00:00 00:00:00 Social History 2021-12-17 2021-12-17 [facility] 15:55:16 15:55:16 Sex Assigned At [birth year] Met [facility] 00:00:00 00:00:00 Smoking Status Start Date Stop Date Source Tobacco smoking consumption unknown [facility] Tobacco smoking status [facility] Medications Ordered Filled Start Stop Current Ordering Indication Dosage Frequency Signature Comments Components Source Medication Medication Date Date Medication? Clinician (SIG) Name Name sugammadex 2021-0 No Route: IV, Sana emoria (ANES) 01-07 Drug form: l 19:24: SOLN, Wild 00 ONCE, Stop date: 01/07/22 14:24:00 CDT sugammadex 2021-0 No Route: IV, Sana emoria (ANES) 01-07 Drug form: l 19:24: SOLN, Wild 00 ONCE, Stop date: 01/07/22 14:24:00 CDT sugammadex 2022-0 No Route: IV, Sana emoria (ANES) 01-07 Drug form: l 19:24: SOLN, Barnum 00 ONCE, Stop date: 01/07/22 14:24:00 CDT sugammadex 2022-0 No Route: IV, Sana emoria (ANES) 01-07 Drug form: l 19:24: SOLN, Barnum 00 ONCE, Stop date: 01/07/22 14:24:00 CDT sugammadex 2022-0 No Route: IV, Sana emoria (ANES) 01-07 Drug form: l 19:24: SOLN, Wild 00 ONCE, Stop date: 01/07/22 14:24:00 CDT ondansetron 2-0 No Route: IV, Memoria (ANES) 01-07 Drug form: l 19:18: INJ, ONCE, Barnum Stop date: 01/07/22 14:18:00 CDT ondansetron 2-0 No Route: IV, Memoria (ANES) 01-07 Drug form: l 19:18: INJ, ONCE, Barnum Stop date: 01/07/22 14:18:00 CDT ondansetron 2-0 No Route: IV, Memoria (ANES) 01-07 Drug form: l 19:18: INJ, ONCE, Wild Stop date: 01/07/22 14:18:00 CDT ondansetron 0 No Route: IV, Memoria (ANES) 01-07 Drug form: l 19:18: INJ, ONCE, Wild 00 Stop date: 01/07/22 14:18:00 CDT ondansetron 2021-0 No Route: IV, Memoria (ANES) 01-07 Drug form: l 19:18: INJ, ONCE, Stop date: 01/07/22 14:18:00 CDT ANES 0 No 10 mg, Memoria hydrALAZINE 01-07 Route: l 18:59: IVP, Barnum 00 Q20Min, Dosing Weight 86.1, kg, PRN [...] Route: PO, l mg 18:59: Drug form: Barnum immediate 00 TAB, Q4H, release Dosing tablet Weight 86.1, kg, PRN Pain Score 4-6, Start date: 01/07/22 13:59:00 CDT, Duration: 30 day, Stop date: 02/06/22 13:58:00 CDT ANES 0 No 0.2 mg, Memoria HYDROmorpho 01-07 Route: l ne 18:59: IVP, Barnum 00 Q5Min, Dosing Weight 86.1, kg, PRN [...] Memoria hydrALAZINE 01-07 Route: l 18:59: IVP, Barnum 00 Q20Min, Dosing Weight 86.1, kg, PRN [...] day, Stop date: 02/06/22 13:58:00 CDT ANES 2022-0 No 0.2 mg, Memoria HYDROmorpho 01-07 Route: l ne 18:59: IVP, Barnum 00 Q5Min, Dosing Weight 86.1, kg, PRN Pain Score 7-10, Start date: 01/07/22 13:59:00 CDT, Duration: 4 doses or times, Stop date: Limited # of times ANES 2021-0 No 0.2 mg, Memoria flumazenil 01-07 Route: l 18:59: IVP, PRN, Barnum 00 Dosing Weight 86.1, kg, PRN Benzodiaze pine Reversal, Initial dose, Start date: 01/07/22 13:59:00 CDT, Duration: 30 day, Stop date: 02/06/22 13:58:00 CDT ANES 0 No 0.4 mg, Memoria naloxone 01-07 Route: l 18:59: IVP, Barnum 00 Q2MIN, Dosing Weight 86.1, kg, PRN [...] promethazin 01-07 Route: l e 18:59: IVPB, Barnum 00 ONCE, Dosing Weight 86.1, kg, PRN [...] ondansetron 01-07 Route: l 18:59: IVP, ONCE, Barnum 00 Dosing Weight 86.1, kg, PRN Nausea & Vomiting, Start date: 01/07/22 13:59:00 CDT ANES 2021-0 No 6.25 mg, Memoria promethazin 01-07 Route: l e 18:59: IVPB, Barnum 00 ONCE, Dosing Weight 86.1, kg, PRN [...] Route: PO, l mg 18:59: Drug form: Barnum immediate 00 TAB, Q4H, release Dosing tablet Weight 86.1, kg, PRN Pain Score 4-6, Start date: 01/07/22 13:59:00 CDT, Duration: 30 day, Stop date: 02/06/22 13:58:00 CDT ANES 2021-0 No 0.2 mg, Memoria HYDROmorpho 01-07 Route: l ne 18:59: IVP, Barnum 00 Q5Min, Dosing Weight 86.1, kg, PRN [...] Memoria naloxone 01-07 Route: l 18:59: IVP, Barnum 00 Q2MIN, Dosing Weight 86.1, kg, PRN [...] promethazin 01-07 Route: l e 18:59: IVPB, Barnum 00 ONCE, Dosing Weight 86.1, kg, PRN Nausea & Vomiting, Start date: 01/07/22 13:59:00 CDT ANES 2021-0 No 10 mg, Memoria hydrALAZINE 01-07 Route: l 18:59: IVP, Barnum 00 Q20Min, Dosing Weight 86.1, kg, PRN [...] Route: PO, l mg 18:59: Drug form: Barnum immediate 00 TAB, Q4H, release Dosing tablet Weight 86.1, kg, PRN Pain Score 4-6, Start date: 01/07/22 13:59:00 CDT, Duration: 30 day, Stop date: 02/06/22 13:58:00 CDT ANES 2021-0 No 0.2 mg, Memoria HYDROmorpho 01-07 Route: l ne 18:59: IVP, Barnum 00 Q5Min, Dosing Weight 86.1, kg, PRN Pain Score 7-10, Start date: 01/07/22 13:59:00 CDT, Duration: 4 doses or times, Stop date: Limited # of times ANES 2021-0 No 0.2 mg, Memoria flumazenil 01-07 Route: l 18:59: IVP, PRN, Dosing Weight 86.1, kg, PRN Benzodiaze pine Reversal, Initial dose, Start date: 01/07/22 13:59:00 CDT, Duration: 30 day, Stop date: 02/06/22 13:58:00 CDT ANES 0 No 0.4 mg, Memoria naloxone 01-07 Route: l 18:59: IVP, Q2MIN, Dosing Weight 86.1, kg, PRN Narcotic Reversal, Start date: 01/07/22 13:59:00 CDT, Duration: 8 doses or times, Stop date: Limited # of times ANES 0 No 4 mg, Memoria ondansetron 01-07 Route: l 18:59: IVP, ONCE, Dosing Weight 86.1, kg, PRN Nausea & Vomiting, Start date: 01/07/22 13:59:00 CDT ANES 0 No 6.25 mg, Memoria promethazin 01-07 Route: l e 18:59: IVPB, ONCE, Dosing Weight 86.1, kg, PRN Nausea & Vomiting, Start date: 01/07/22 13:59:00 CDT atropine 0 No Route: IV, Mem [...] ONCE, Stop date: 01/07/22 13:17:00 CDT lidocaine 2-0 No Route: IV, Me [...] ONCE, Stop date: 01/07/22 13:07:00 CDT glycopyrrol 2022-0 No Route: IV, Memoria ate (ANES) 01-07 Drug form: l 18:07: INJ, ONCE, Stop date: 01/07/22 13:07:00 CDT ketAMINE 2022-0 No Route: IV, Mem oria (ANES) 01-07 Drug form: l 18:07: INJ, ONCE, Stop date: 01/07/22 13:07:00 CDT lidocaine 2021- No Route: IV, Me moria (ANES) 01-07 Drug form: l 18:07: INJ, ONCE, Stop date: 01/07/22 13:07:00 CDT propofol 2021- No Route: IV, Mem oria (ANES) 01-07 Drug form: l 18:07: INJ, ONCE, Stop date: 01/07/22 13:07:00 CDT rocuronium No Route: IV, M emoria (ANES) 01-07 Drug form: l 18:07: INJ, ONCE, Stop date: 01/07/22 13:07:00 CDT glycopyrrol No Route: IV, Memoria ate (ANES) 01-07 Drug form: l 18:07: INJ, ONCE, Stop date: 01/07/22 13:07:00 CDT ketAMINE 2021- No Route: IV, Mem oria (ANES) 01-07 Drug form: l 18:07: INJ, ONCE, Stop date: 01/07/22 13:07:00 CDT Isolyte S No Route: IV, Me moria PH 7.4 6-09 Total l (ANES) 500 18:00: Volume: Herm eder mL 500, Start date: 01/07/22 13:00:00 CDT, Stop date: 01/07/22 14:00:00 CDT Isolyte S 2021- No Route: IV, Me moria PH 7.4 6-09 Total l (ANES) 500 18:00: Volume: Herm eder mL 00 500, Start date: 01/07/22 13:00:00 CDT, Stop date: 01/07/22 14:00:00 CDT Isolyte S 2021-0 No Route: IV, Me moria PH 7.4 6-09 Total l (ANES) 500 18:00: Volume: Herm eder mL 00 500, Start date: 01/07/22 13:00:00 CDT, Stop date: 01/07/22 14:00:00 CDT Isolyte S 2-0 No Route: IV, Me moria PH 7.4 6- Total l (ANES) 500 18:00: Volume: Herm eder mL 00 500, Start date: 01/07/22 13:00:00 CDT, Stop date: 01/07/22 14:00:00 CDT Isolyte S 2021-0 No Route: IV, Me moria PH 7.4 6- Total l (ANES) 500 18:00: Volume: Herm [...] 2021-0 No Route: IV, Me moria (ANES) - Drug form: l 17:10: INJ, ONCE, Stop date: 01/07/22 12:10:00 CDT ceFAZolin 2021-0 No Route: IV, Me moria (ANES) 01-07 Drug form: l 17:10: INJ, ONCE, Stop date: 01/07/22 12:10:00 CDT ceFAZolin 2022-0 No Route: IV, Me moria (ANES) 01-07 Drug form: l 17:10: INJ, ONCE, Stop date: 01/07/22 12:10:00 CDT ceFAZolin 2022-0 No Route: IV, Me moria (ANES) 01-07 Drug form: l 17:10: INJ, ONCE, Stop date: 01/07/22 12:10:00 CDT ceFAZolin 2-0 No Route: IV, Me moria (ANES) 01-07 Drug form: l 17:10: INJ, ONCE, Stop date: 01/07/22 12:10:00 CDT Isolyte S 2022-0 No Route: IV, [...] Rate: 75 l 1,000 mL 15:01: ml/hr, Barnum 00 Infuse over: 13.3 hr, Route: IV, Dosing Weight 84 kg, Total Volume: 1,000, Start date: 01/07/22 10:01:00 CDT, Duration: 30 day, Stop date: 02/06/22 10:00:00 CDT, BSA: 2 m2, 0 acetaminoph 2022-0 No 1,000 mg, M emoria en 01-07 Route: PO, l 15:01: Drug form: Barnum 00 TAB, PRE OP, Dosing Weight 84, [...] 01-07 Route: PO, l 15:01: Drug form: Barnum 00 TAB, PRE OP, Dosing Weight 84, [...] 01-07 Route: PO, l 15:01: Drug form: Barnum 00 TAB, PRE OP, Dosing Weight 84, kg, Priority: NOW, Start date: 01/07/22 10:01:00 CDT, Duration: 1 doses or times Isolyte S 2022-0 No 1,000 mL, Mem oria PH 7.4 01-07 Rate: 75 l 1,000 mL 15:01: ml/hr, Barnum 00 Infuse over: 13.3 hr, Route: IV, [...] Kobi n 00 tab, 1 Refill(s) oxybutynin 2022-0 Yes 5 mg = 1 [...] 5-19 Refill(s) l 15:30: Wild 00 Zinc 2021-0 Yes 140 mg, Memoria 5-19 PO, Daily, l 15:30: 0 Barnum 00 Refill(s) ursodiol 2021-0 Yes 300 mg [...] Yes 0 Memoria 5-19 Refill(s) l 15:30: Barnum 00 Zinc 2021-0 Yes 140 mg, Memoria 5-19 PO, Daily, l 15:30: 0 Barnum 00 Refill(s) ursodiol 2021-0 Yes 300 mg [...] Yes 0 Memoria 5-19 Refill(s) l 15:30: Barnum 00 Zinc 2021-0 Yes 140 mg, Memoria 5-19 PO, Daily, l 15:30: 0 Wild 00 Refill(s) Synthroid 2021-0 Yes 125 Memoria 125 mcg 5-19 microgram l (0.125 mg) 15:29: = 1 tab, Her sykes oral tablet 00 PO, QAM, # 30 tab, 0 Refill(s) Uloric 80 2021-0 Yes 80 mg = 1 Mem oria mg oral 5-19 tab, PO, l tablet 15:29: QAM, # 30 Kobi n 00 tab, 0 Refill(s) Synthroid 2021-0 Yes 125 Memoria 125 mcg 5-19 microgram l (0.125 mg) 15:29: = 1 tab, Her sykes oral tablet 00 PO, QAM, # 30 tab, 0 Refill(s) Uloric 80 2021-0 Yes 80 mg = 1 Mem oria mg oral 5-19 tab, PO, l tablet 15:29: QAM, # 30 Kobi n 00 tab, 0 Refill(s) Synthroid 2021-0 Yes 125 Memoria 125 mcg 5-19 microgram l (0.125 mg) 15:29: = 1 tab, Her sykes oral tablet 00 PO, QAM, # 30 tab, 0 Refill(s) Uloric 80 2021-0 Yes 80 mg = 1 Mem oria mg oral 5-19 tab, PO, l tablet 15:29: QAM, # 30 Kobi n 00 tab, 0 Refill(s) Aciphex 20 2021-0 Yes 20 mg = 1 Me moria mg oral 5-19 tab, PO, l enteric 15:28: QAM, # 30 Arabella nn coated 00 tab, 1 tablet Refill(s) Crestor 5 2022-0 Yes 5 mg = 1 Robert micky mg oral 5-19 tab, PO, l tablet 15:28: QAM, # 60 Kobi n 00 tab, 0 Refill(s) Aciphex 20 2022-0 Yes 20 mg = 1 Me moria mg oral 5-19 tab, PO, l enteric 15:28: QAM, # 30 Arabella nn coated 00 tab, 1 tablet Refill(s) Crestor 5 2022-0 Yes 5 mg = 1 Robert micky mg oral 5-19 tab, PO, l tablet 15:28: QAM, # 60 Kobi n 00 tab, 0 Refill(s) Aciphex 20 2-0 Yes 20 mg = 1 Me moria mg oral 5-19 tab, PO, l enteric 15:28: QAM, # 30 Arabella nn coated 00 tab, 1 tablet Refill(s) Crestor 5 2022-0 Yes 5 mg = 1 Robert micky mg oral 5-19 tab, PO, l tablet 15:28: QAM, # 60 Kobi n 00 tab, 0 Refill(s) amLODIPine 2022-0 Yes 5 mg, PO, Me moria 5-19 QAM, 0 l 15:27: Refill(s) Barnum 00 Lasix 40 mg 2022-0 Yes 40 mg = 1 M emoria oral tablet 5-19 tab, PO, l 15:27: QAM, # 90 Wild 00 tab, 0 Refill(s) amLODIPine 2022-0 Yes 5 mg, PO, Me moria 5-19 QAM, 0 l 15:27: Refill(s) Wild 00 Lasix 40 mg 2022-0 Yes 40 mg = 1 M emoria oral tablet 5-19 tab, PO, l 15:27: QAM, # 90 Wild 00 tab, 0 Refill(s) amLODIPine 2022-0 Yes 5 mg, PO, Me moria 5-19 QAM, 0 l 15:27: Refill(s) Barnum 00 Lasix 40 mg 2022-0 Yes 40 mg = 1 M emoria oral tablet 5-19 tab, PO, l 15:27: QAM, # 90 Wild 00 tab, 0 Refill(s) AMIODarone 2021-0 Yes 200 mg = [...] 13 (two) l times a day. ferrous 2020-0 Yes 18mg Q.[id number] Take 18 mg [facility] sulfate 325 6-25 [id number] mouth [address] (65 FE) MG 19:01: 3D (three) Hosp radames tablet 13 times a l day with meals. Patient takes 18mg PO TID febuxostat 2021-0 Yes 40mg QD Take 40 mg M [...] or as [place] [id number] 5mL Q6H Take 5 mL [facility] ifenesin [...] l times a day. ferrous Yes 18mg Q.[id number] Take 18 mg [facility] sulfate 325 6-25 [id number] mouth [address] (65 FE) MG [...] or as directed by [place] pereira Yes [id number] 5mL Q6H Take 5 mL [facility] ifenesin [...] l times a day. ferrous Yes 18mg Q.[id number] Take 18 mg [facility] sulfate 325 6-25 [id number] mouth [address] (65 FE) MG [...] or as directed by MD pereira Yes [id number] 5mL Q6H Take 5 mL [facility] ifenesin [...] l times a day. ferrous Yes 18mg Q.[id number] Take 18 mg [facility] sulfate 325 6-25 [id number] mouth [address] (65 FE) MG [...] or as directed by [place] pe[place] Yes [id number] 5mL Q6H Take 5 mL [facility] ifenesin [...] l times a day. ferrous Yes 18mg Q.[id number] Take 18 mg [facility] sulfate 325 6-25 [id number] mouth [address] (65 FE) MG [...] 12 hours or as directed [place] [id number] 5mL Q6H Take 5 mL [facility] ifenesin 6-[address] (GUAIFENESI 19:01: every 6 Hos evelyn N AC) 13 (six) l 10-100 mg/5 hours as mL liquid needed for cough .acute pain. meclizine Yes 25mg Q.[id number] Take 2 [facility] (ANTIVERT) 6-[id number] 12.5 mg 00:00: 3D (25 mg Hospita tablet 00 total) by l mouth 3 (three) times a day as needed for dizziness. ipratropium Yes [id number] .5mg Q.[id number] Take 2.5 [facility] (ATROVENT) 6-25 [id number] mL (0.[address] 0.02 % 00:00: 3D total) by Hospit a nebulizer 00 nebulizati l solution on 3 (three) times a day. meclizine Yes 25mg Q.[id number] Take 2 [facility] (ANTIVERT) 6-[id number] 12.5 mg 00:00: 3D (25 mg Hospita tablet 00 total) by l mouth 3 (three) times a day as needed for dizziness. ipratropium 2021-0 Yes [id number] .5mg Q.47078155 Take 2.5 [facility] (ATROVENT) 6-25 [id number] mL (0.[address] 0.02 % 00:00: 3D total) by Hospit a nebulizer 00 nebulizati l solution on 3 (three) times a day. meclizine 2021-0 Yes 25mg Q.[id number] Take 2 [facility] (ANTIVERT) 6-[id number] 12.5 mg 00:00: 3D (25 mg Hospita tablet 00 total) by l mouth 3 (three) times a day as needed for dizziness. ipratropium 2021-0 Yes [id number] .5mg Q.[id number] Take 2.5 [facility] (ATROVENT) 6-25 [id number] mL (0.[address] 0.02 % 00:00: 3D total) by Hospit a nebulizer 00 nebulizati l solution on 3 (three) times a day. meclizine 2021-0 Yes 25mg Q.[id number] Take 2 [facility] (ANTIVERT) 6-[id number] 12.5 mg 00:00: 3D (25 mg Hospita tablet 00 total) by l mouth 3 (three) times a day as needed for dizziness. ipratropium 2021-0 Yes [id number] .5mg Q.[id number] Take 2.5 [facility] (ATROVENT) 6-25 [id number] mL (0.[address] 0.02 % 00:00: 3D total) by Hospit a nebulizer 00 nebulizati l solution on 3 (three) times a day. meclizine 2021-0 Yes 25mg Q.[id number] Take 2 [facility] (ANTIVERT) 6-[id number] 12.5 mg 00:00: 3D (25 mg Hospita tablet 00 total) by l mouth 3 (three) times a day as needed for dizziness. ipratropium 2021-0 Yes [id number] .5mg Q.[id number] Take 2.5 [facility] (ATROVENT) 6-25 [id number] mL (0.[address] 0.02 % 00:00: [...] tab, PO, l tablet 16:34: BID, 0 Refill(s) Aspirin 2018-08 Yes 0 Memoria 2-16 [...] tab, PO, l tablet 16:34: BID, 0 Refill(s) aspirin 2018-08 Yes 81 mg, PO, Roebrt micky 2-16 Daily, 0 l 16:34: Refill(s) Benadryl 2018-08 Yes 25 mg, Memoria 2-16 Bedtime, 0 l 16:34: Refill(s) Aspirin 2018-08 Yes 0 Memoria 2-16 [...] tab, PO, l tablet 16:34: BID, 0 Barnum 00 Refill(s) aspirin 2018-08 Yes 81 mg, PO, Robert micky 2-16 Daily, 0 l 16:34: Refill(s) Benadryl 2018-08 Yes 25 mg, Memoria 2-16 Bedtime, 0 l 16:34: Refill(s) Aspirin 2018-08 Yes 0 Memoria 2-16 [...] tab, PO, l tablet 16:34: BID, 0 Refill(s) Aspirin 2018-08 Yes 0 Memoria 2-16 [...] tab, PO, l tablet 16:34: BID, 0 Refill(s) aspirin 2018-08 Yes 81 mg, PO, Robert micky 2-16 Daily, 0 l 16:34: Refill(s) Benadryl 2018-08 Yes 25 mg, Memoria 2-16 Bedtime, 0 l 16:34: Refill(s) HR 2018-08 Yes 50 mg = 1 Memoria mirabegron 2-16 tab, PO, l 50 MG 16:03: Daily, # Wild Extended 00 30 tab, 0 Release Refill(s), Tablet Pharmacy: [Myrbetriq] [facility] 2018-08 Yes 50 mg = 1 Memoria mirabegron 2-16 tab, PO, l 50 MG 16:03: Daily, # Barnum Extended 00 30 tab, 0 Release Refill(s), Tablet Pharmacy: [Myrbetriq] [facility] 2018-08 Yes 50 mg = 1 Memoria mirabegron 2-16 tab, PO, l 50 MG 16:03: Daily, # Wild Extended 00 30 tab, 0 Release Refill(s), Tablet Pharmacy: [Myrbetriq] [facility] 2018-08 Yes 50 mg = 1 Memoria mirabegron 2-16 tab, PO, l 50 MG 16:03: Daily, # Wild Extended 00 30 tab, 0 Release Refill(s), Tablet Pharmacy: [Myrbetriq] [facility] 2018-08 Yes 50 mg = 1 Memoria mirabegron 2-16 tab, PO, l 50 MG 16:03: Daily, # [place] Extended 00 30 tab, 0 Release Refill(s), Tablet Pharmacy: [Myrbetriq] [facility] liothyronin 2018-08 Yes 5 Memori a e [...] tab, PO, l tablet 15:29: Daily, 0 [place] 00 Refill(s) febuxostat 2018-08 Yes 80 mg = 1 Me moria 80 MG Oral 2-16 tab, PO, l Tablet 15:29: Daily, # Wild [Uloric] 00 30 tab, 0 Refill(s) carvedilol 2018-08 Yes 12.5 mg = Me moria 12.5 mg 2-16 1 tab, PO, l oral tablet 15:29: BID, 0 Herm eedr 00 Refill(s) ursodiol 2018-08 Yes 300 mg [...] tab, PO, l tablet 15:29: Daily, 0 [place] 00 Refill(s) oxybutynin 2018-08 Yes 15 mg [...] tab, PO, l tablet 15:29: Daily, 0 [place] 00 Refill(s) oxybutynin 2018-08 Yes 15 mg [...] tab, PO, l tablet 15:29: Daily, 0 [place] 00 Refill(s) febuxostat 2018-08 Yes 80 mg [...] cap, PO, l Capsule 15:29: BID, 0 [place] [Lyrica] 00 Refill(s) doxazosin 4 2018-08 Yes [...] tab, PO, l tablet 15:29: Daily, 0 [place] 00 Refill(s) febuxostat 2018-08 Yes 80 mg [...] cap, PO, l Capsule 15:29: BID, 0 [place] [Lyrica] 00 Refill(s) doxazosin 4 2018-08 Yes [...] Wild Respitory Rate 2022-01-07 21:30:00 Memori al Wild Systolic (mm Hg) 2022-01-07 21:30:00 Robert rial [place] Diastolic (mm Hg) 2022-01-07 21:30:00 Mem orial Wild Respitory Rate 2022-01-07 21:15:00 [facility]ori [facility]um Systolic (mm Hg) 2022-01-07 21:15:00 Robert rial Wild Diastolic (mm Hg) 2022-01-07 21:15:00 Mem orial Barnum Height 2022-01-07 15:36:00 167.64 cm [facility] Weight 2022-01-07 15:36:00 [facility] BMI Calculated 2022-01-07 15:36:00 [facility] Heart Rate 2022-01-07 15:20:00 [facility] Height 2022-01-07 15:01:00 167.64 cm [facility] Weight 2022-01-07 15:01:00 [facility] BMI Calculated 2022-01-07 15:01:00 [facility] Height 2019-08-13 17:17:00 167.64 cm [facility] Weight 2019-08-13 17:17:00 [facility] BMI Calculated 2019-08-13 17:17:00 Memori al Wild Systolic (mm Hg) 2019-07-16 15:23:00 Robert rial Barnum Diastolic (mm Hg) 2019-07-16 15:23:00 Mem [facility] Wild Heart Rate 2019-07-16 15:23:00 [facility] Height 2019-07-16 15:23:00 167.64 cm [facility] Weight 2019-07-16 15:23:00 [facility] BMI Calculated 2019-07-16 15:23:00 Memori al Wild Procedures Procedure Date / Time Performing Clinician Source Performed [id number] 2020-10-29 00:00:00 RASSA [facility] Measurement of 2019-07-16 16:18:00 [facility] Her sykes post-voiding residual urine and/or bladder capacity by ultrasound, non-imaging Carpal tunnel release [facility] H ermann Shoulder replacement [facility] He rmann Knee replacement [facility] Kobi n Tonsillectomy and [facility] Arabella nn adenoidectomy Hysterectomy [facility] Wild Operation [facility] Barnum Breast biopsy and related Memori al [facility]um procedures Plan of Care Planned Activity Planned Date Details Comments Source Future Scheduled 2023-01-20 COVID-19 VACCINE (#1) [facility] Test 01:36:46 [code = COVID-19 VACCINE (#1)] Future Scheduled 2023-01-20 SHINGLES VACCINES (1 [facility] Test 01:36:46 of 2) [code = SHINGLES VACCINES (1 of 2)] Future Scheduled 2023-01-20 65+ PNEUMOCOCCAL [facility] Test 01:36:46 VACCINE (2 - PCV) [code = 65+ PNEUMOCOCCAL VACCINE (2 - PCV)] Future Scheduled 2023-01-20 INFLUENZA VACCINE [facility] Test 01:36:46 [code = INFLUENZA VACCINE] Future Scheduled 2022-11-04 COVID-19 VACCINE (#1) [facility] Test 05:00:00 [code = COVID-19 VACCINE (#1)] Future Scheduled 2022-11-04 SHINGLES VACCINES (1 [facility] Test 05:00:00 of 2) [code = SHINGLES VACCINES (1 of 2)] Future Scheduled 2022-11-04 65+ PNEUMOCOCCAL [facility] Test 05:00:00 VACCINE (2 - PCV) [code = 65+ PNEUMOCOCCAL VACCINE (2 - PCV)] Future Scheduled 2022-11-04 INFLUENZA VACCINE Method [facility] Test 05:00:00 [code = INFLUENZA VACCINE] Future Scheduled 2022-11-04 COVID-19 VACCINE (#1) [facility] Test 05:00:00 [code = COVID-19 VACCINE (#1)] Future Scheduled 2022-11-04 SHINGLES VACCINES (1 [facility] Test 05:00:00 of 2) [code = SHINGLES VACCINES (1 of 2)] Future Scheduled 2022-11-04 65+ [facility] 05:00:00 VACCINE (2 - PCV) [code = 65+ PNEUMOCOCCAL VACCINE (2 - PCV)] Future Scheduled 2022-11-04 INFLUENZA VACCINE [facility] Test 05:00:00 [code = INFLUENZA VACCINE] Future Scheduled 2022-07-20 COVID-19 VACCINE (#1) [facility] Test 11:25:01 [code = COVID-19 VACCINE (#1)] Future Scheduled 2022-07-20 SHINGLES VACCINES (1 [facility] Test 11:25:01 of 2) [code = SHINGLES VACCINES (1 of 2)] Future Scheduled 2022-07-20 65+ PNEUMOCOCCAL [facility] Test 11:25:01 VACCINE (2 - PCV) [code = 65+ PNEUMOCOCCAL VACCINE (2 - PCV)] Future Scheduled 2022-07-20 INFLUENZA VACCINE Method [facility] Test 11:25:01 [code = INFLUENZA VACCINE] Future Scheduled 2022-03-30 HEPATITIS B VACCINES Met [facility] Test 23:59:48 (1 of 3 - 3-dose series) [code = HEPATITIS B VACCINES (1 of 3 - 3-dose series)] Future Scheduled 2022-03-30 COVID-19 VACCINE (#1) [facility] Test 23:59:48 [code = COVID-19 VACCINE (#1)] Future Scheduled 2022-03-30 SHINGLES VACCINES (1 [facility] Test 23:59:48 of 2) [code = SHINGLES VACCINES (1 of 2)] Future Scheduled 2022-03-30 65+ PNEUMOCOCCAL Methodi [facility] Test 23:59:48 VACCINE (2 - PCV) [code = 65+ PNEUMOCOCCAL VACCINE (2 - PCV)] Future Scheduled 2022-03-30 INFLUENZA VACCINE Method is Hospital Test 23:59:48 [code = INFLUENZA VACCINE] Encounters Start End Encounter Admission Attending Care Care Encounter Source Date/Time Date/Time Type Type Clinicians Facility Department ID 2023-01-31 Outpatient Will [facility] [id number] [facility] 08:57:01 Eddie 6[address]85 [facility] 2022-01-29 Outpatient [facility] [id number] [place] 12:49:04 [id number] [facility] 2022-01-13 Outpatient [facility] [id number] DC 15:20:56 [id number] [facility] 2020-11-26 Inpatient JORDAN Osborn, HCAC[facility] [id number] [facility] 14:00:00 Eagle 21 [facility] 2020-10-17 Inpatient Anurag, HCACL [facility] [id number] [facility] 17:21:45 Eagle 88 [facility] 2020-10-13 Outpatient TAYA CASH MDA [id number] 13:14:56 PROVIDER Obed tidwell 2019-07-30 Outpatient MHSE [facility] [id number] 12:25:32 [facility] 2022-10-15 2022-10-15 Outpatient JORDAN BHANDARI MDA MDA [id number] 08:07:31 09:25:58 MILDRED tidwell 2022-10-15 2022-10-15 Outpatient JORDAN BHANDARI MDA MDA [id number] 07:43:47 07:43:47 MILDRED tidwell 2022-08-09 2022-08-[address] [facility] [id number] [facility] 16:00:00 16:00:00 Pre-Reg Specialty [address] [place] [address] 2022-08-09 2022-08-[address] [facility] [id number] Memoria 16:00:00 16:00:00 Pre-Reg Specialty 02 [facility] 2022-08-09 2022-08-09 Outpatient MHIE [facility]IE [id number] Memoria 10:00:00 10:00:00 Lorraine Rome 2022-08-09 2022-08-09 Outpatient Eugene EROS [facility] [id number] 10:00:00 10:00:00 Rachele Maravilla 02 2022-07-20 2022-07-20 Patient Rickey Rodas 1.2.840.1 [id number] Methodi 00:00:00 00:00:[id number] 3.430.2.7 Hospit a .3.695318 l .8 2022-07-20 2022-07-20 Patient Rickey Rodas 1.2.840.1 [id number] 21 [id number] Methodi 00:00:00 00:00:[id number] 3.430.2.7 Hospit a .3.948979 l .8 2022-01-07 2022-01-08 Day [facility] [id number] Memoria 12:52:00 04:59:[address] 2022-01-07 2022-01-08 Day [facility] [id number] Memoria 12:52:00 04:59:[address] 2022-01-07 2022-01-07 Outpatient BENJAMÍN [facility] [id number] [facility] 07:52:00 23:59:00 BE 2022-01-07 2022-01-07 Outpatient Benjamín [facility] [id number] 07:52:00 23:59:00 Be 02 shaun 2021-12-23 2021-12-23 Outpatient BENJAMÍN [facility] [id number] MH 09:15:00 23:59:00 BE 2021-10-23 2021-10-23 Outpatient JORDAN SHELL MDA [facility] [id number] 09:17:50 09:17:50 ALIE tidwell 2021-10-23 2021-10-23 Outpatient JORDAN SHELL MDA MDA [id number] 08:18:09 08:18:09 ALIE tidwell 2021-01-17 2021-01-23 Inpatient BRANDEN KAPADIA [facility] [id number] 8530 [place] 00:00:00 00:00:[address] 2020-10-03 2020-10-08 Outpatient JORDAN HEATH MDA MDA [id number] 09:19:28 08:21:37 THELMA tidwell 2020-10-03 2020-10-03 Outpatient JORDAN HEATH MDA MDA [id number] 08:59:38 23:59:00 THELMA tidwell 2019-08-13 2019-08-14 Outpatient nullFlavo [facility] 40 [id number] Memoria 17:00:00 05:59:59 r Specialty 01 l [facility] 2019-08-13 2019-08-14 Outpatient nullFlavo [facility] 40 [id number] Memoria 17:00:00 05:59:59 r Specialty 01 l [facility] 2019-08-13 2019-08-13 Outpatient EROS [facility] [id number] 11:00:00 23:59:59 Rachele L 2019-08-13 2019-08-13 Outpatient MHIE MHIE [id number] Memoria 11:00:00 11:00:[address] [facility] 2019-08-02 2019-08-03 [place] [id number] Memoria 14:49:00 05:59:00 Services r Outpatient 00 l [facility] 2019-08-02 2019-08-03 Outpt Diag nullFlavo [facility] [id number] Memoria 14:49:00 05:59:00 Services r Outpatient 00 l [facility] 2019-08-02 2019-08-02 Outpatient Nicolnisha MHOIP MHOIP [id number] 08:49:00 23:59:00 Rachele L 2019-07-16 2019-07-17 Outpatient nullFlavo [facility] 40 [id number] Memoria 15:20:00 05:59:59 r Specialty 00 l [facility] 2019-07-16 2019-07-17 Outpatient nullFlavo [facility] Multi 40 [id number] Memoria 15:20:00 05:59:59 r Specialty 00 l [facility] 2019-07-16 2019-07-16 Outpatient Eugene [facility] [id number] 09:20:00 23:59:59 Rachele L 00 2019-07-16 2019-07-16 Outpatient [facility] [id number] Memoria 09:20:00 09:20:[address] [facility] 2018-04-27 2018-04-27 Outpatient JORDAN LOWERY [facility] MDA [id number] 10:30:01 10:30:01 JEANINE tidwell Results Test Description Test Time Test Comments Results Result Comments Source CARDIAC ENZYMES 2022-01-07 19:47:00 Test Item Value Reference Range Interpretation Comme nts HS Troponin I (test code = HS Troponin I) [facility] [id number] 19:47:00 Test Item Value Reference Range Interpretation Comments HS Troponin I (test code = HS Troponin 9 I) [facility] [id number] 19:47:00 Test Item Value Reference Range Interpretation Comments HS Troponin I (test code = HS Troponin 9 I) [facility] [id number] 19:47:00 Test Item Value Reference Range Interpretation Comments HS Troponin I (test code = HS Troponin 9 I) [facility] [id number] 19:47:00 Test Item Value Reference Range Interpretation Comments HS Troponin I (test code = HS Troponin 9 I) [facility]ux[facility]beoEFNA-WpC-5 (COVID-19) RNA [Presence] in Respiratory specimen by KAM with probe [id number] 23:36:23 Test Item Value Reference Range Interpretation Comments SARS-CoV-2 (COVID-19) RNA Not detected Not-Detected [Presence] in Respiratory specimen by KAM with probe detection (test code = 58580-5) Whether 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 employed in a healthcare setting (test code = 48110-8) Whether the patient has symptoms related to condition of interest (test code = 65254-4) Patient was hospitalized because of this condition (test code = 97031-8) Whether the patient was admitted to intensive care unit (ICU) for condition of interest (test code = 36932-4) Whether patient resides in a congregate care setting (test code = 27444-8) CHELI Reyes Coronavirus 2019 [id number] 04:35:00 Test Item Value Reference Range Interpretation [...] personneltraine d in the procedures for the Maicoin M2000 molecular diagnostic SARS-CoV-2 assa y in vitro. BASIC METABOLIC [id number] 16:24:00 Test Item Value Reference Range Interpretation [...] = 10.0 mg/dL 8.0-10.5 N CA) PROTHROMBIN [id number] 16:12:00 Test Item Value Reference Range Interpretation [...] (to prevent recurrent infar ct). CBC W/AUTO [id number] 16:05:00 Test Item Value Reference Range Interpretation [...] (test code NO = MDIFF) CBC W/AUTO [id number] 16:02:00 Test Item Value Reference Range Interpretation [...] code = MDIFF) - XR CHEST 1 [id number] 16:30:00 [facility] : 1940 Sex: F FAX: Eagle Sexton MD [phone] [place]: St: [facility] FAX: Ysabel Santacruz NP [phone] ----- Name: JOSE,VANIABABAK GUTHRIE [facility] : 1940 Age/S: 80/F [address] [place] [address] Unit #: [id number] Loc: ERIKA Sands [address] Phys: Ysabel Santacruz NP Acct: [id number] Dis Date: Status: [facility] PHONE #: Exam Date: 10/29/2020 1514 FAX #: [phone] Reason: post watchman EXAMS: CPT CODE: [id number] XR CHEST 1 V 80791 EXAM: XR CHEST 1 VIEW DATE: 10/29/2020 [...] changes are seen involving the aorta. SL: [id number] at 1630 Reported and signed by: Petra Rivera D.O. 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 The testing is perf ormed by ben alejandre in the procedures for the TrewCap000 molecular diagnostic SARS-CoV-2 assa y in vitro. - XR CHEST 2 [id number] 14:55:00 [facility] : 1940 Sex: F FAX: Eagle Sexton MD [phone] [place]: [address] St: PRE Name: AUBRIE DEL TORO [facility] : 1940 Age/S: 80/F [address] [place], [place] [address] Unit #: [id number] Loc: ERIKA Sands [address] Phys: Eagle Osborn MD Acct: [id number] Dis Date: Status: PRE SDC PHONE #: [phone] Exam Date: 10/27/20204 FAX #: [phone] Reason: PRE-OP WATCHMAN EXAMS: CPT CODE: [id number] XR CHEST 2 V 03356 EXAM: PA and lateral chest. EXAM DATE: October 27, 2020 CLINICAL HISTORY: PRE-OP WATCHMAN COMPARISON: None Heart is prominent but difficult to assess secondary to moderate left-sided pleural effusion. The right lung is u nremarkable.. The left upper lung is unremarkable. Orthopedic hardware noted in the right proximal humerus. Surgical clips identified in the left axillary region. IMPRESSION: Moderate left-sided pleural effusion. at 1585 Reported and signed by: Jesi Garcia M.D. CC: Eagle Osborn MD Technologist: RT Suad(R) Trnscrd Date/Time/By: 10/27/2020 (1935) : By: MichaelCER Orig Print D/T: S: 10/27/2020 (7344) PAGE 1 Signed ReportBASIC METABOLIC [id number] 14:35:00 Test Item Value Reference Range Interpretation [...] code = 9.3 mg/dL 8.0-10.5 N CA) [id number] 14:35:00 Test Item Value Reference Range Interpretation Comments PREALBUMIN (test code = PREALB) 18.9 mg/dL 16.0-40.0 N PROTHROMBIN [id number] 14:34:00 Test Item Value Reference Range Interpretation [...] (to prevent recurrent infar ct). CBC W/AUTO [id number] 14:19:00 Test Item Value Reference Range Interpretation [...] REQUIRED (test code = MDIFF) CBC W/AUTO [id number] 14:19:00 Test Item Value Reference Range Interpretation [...] (test code NO = MDIFF) BASIC METABOLIC [id number] 07:01:00 Test Item Value Reference Range Interpretation [...] ANDRÉS SOTOMAYOR/MARGARET GUERRAREAD BACK & CONFIRMED? YBY Y.LAB.[facility] 02/07 0701 GLOMERULAR FILTRATION 28.4 >60 Unit o f measure: RATE (test code = mL/min/1.7 3 GFR) v5Mxjlkyfof Range:Healthy A dults >90 mL/min/1.73 m2 For Chronic Kid opal Disease: Stage II Mild Decrease i n GFR 60-90 Stage III Moderate Decrea se in GFR 30-59 Stage IV Severe Decrease in GFR 15-29 Stage V Kidney Failure <15 CREATININE (test code 1.73 mg/dL 0.55-1.30 H = CREAT) CALCIUM (test code = 8.2 mg/dL 8.2-10.1 N CA) HGB [id number] 05:43:00 Test Item Value Reference Range Interpretation Comments HEMOGLOBIN (test code = HGB) 9.0 g/dL 12-16 L HEMATOCRIT (test code = HCT) 27.7 % 37-47 L URINALYSIS [id number] 14:52:00 Test Item Value Reference Range Interpretation [...] FEW /HPF NONE = BACU) COMPREHENSIVE METABOLIC [id number] 13:30:00 Test Item Value Reference Range Interpretation [...] RATE (test code = GFR) mL/mi n/1.73 l9Hbsnzamni Range:Healthy Adults >90 mL/min/1.73 m2 For Chronic [...] N TOTAL (test code = ALKP) PROTHROMBIN [id number] 13:30:00 Test Item Value Reference Range Interpretation [...] BLOOD, PT every other day NTHROMBOPLASTIN TIME [id number] 13:30:00 Test Item Value Reference Range Interpretation Comments PTT ACTIVATED (test code = APTT) 34.3 secs 24.9-37.0 N IS PATIENT ON ANTICOAGULANTS ? YLIST ANTICOAGULANT/ANTI PLT MEDICATION : AspirinHas Lab been notified if Patient is on Heparin Drip? NOIf Yes, order CBC, OCCULT BLOOD, PT every other day NCBC W/AUTO [id number] 13:12:00 Test Item Value Reference Range Interpretation [...] NRBC) Notes Date/Time Note Provider Source 2020-12-24 [id number] [facility] 12:57:00-00:[address] [place] [address] PATIENT NAME: AUBRIE DEL TORO ADMIT DATE: 11/26/20 ACCOUNT NO: [id number] ROOM NO: AGE: 80 REPORT TYPE: eTRANSESOPHAGEAL ECHO REPORT SEX: F ADMITTING PHYSICIAN: ATTENDING PHYSICIAN:Eagle Osborn MD *[address] [address] Transesophageal Echocardiogram for Riley Patient: Aubrie Del Toro Study Date: 11/26/2020 BP: Location: [facility] URN: [id number] : 1940 Age: 80 Height: 66 in / 167.6 cm Gender: F Weight: 219 .5 lb / 99.8 kg BMI/BSA: 35.5 kg/m 2 / 2.2 m 2 *Ordering Physician: * Eagle Osborn *Interpreting Physician: * Anurag Guillermo MD *Shank Breaker: * So Dudley Indications: Post Watchman. Study data: Transesophageal Echocardiogram for Jonah malone. Consent: The risks, benefits, and alternatives to the procedu re and sedation were explained to the patient and informed consent wa s obtained. Procedure: Initial setup: The patient was brought to the [facility] in the fasting state.Intravenous access was obtained. Surface E CG leads, blood pressure measurements, and pulse oximetric signals were m onitored. Sedation. Deep sedation was administered by anesthesiology petrona garvey. Transesophageal echocardiography was performed. A transesophagea l probe was inserted by the anesthesiologist. Image quality was good. Melia alicia 2D and 3D. Location: Procedure room. Patient status: Outpat ient. Patient room number: CV Prep. Study status: Routine. Study co mpletion: The patient tolerated the procedure well. There were no complications. Rhythm: Normal sinus rhythm. PATIENT NAME: AUBRIE DEL TORO ACCOUNT #: [id number] Findings Left ventricle: The cavity size is [...] NAME: AUBRIE DEL TORO ACCOUNT #: [id number] 2020-10-29 [id number] [facility] 17:00:00-00:[address] [place] [address]. [place] [address] PATIENT NAME: AUBRIE DEL TORO ADMIT DATE: 10/29/20 ACCOUNT NO: [id number] ROOM NO: KOMAL AGE: 80 REPORT TYPE: eECHOCARDIOGRAM REPORT SEX: F ADMITTING PHYSICIAN:Eagle Osborn MD ATTENDING PHYSICIAN:Eagle Osborn MD *[facility]* [address] [place] [address] Limited Transthoracic Echocardiogram Patient: Aubrie Del Toro Study Date: 10/29/2020 BP: 146 / 63 Location: [facility] URN: [id number] : 1940 Age: 80 Height: 66 in / 167.6 cm Gender: F Weight: 223 .5 lb / 101.6 kg BMI/BSA: 36.2 kg/m 2 / 2.22 m 2 *Ordering Physician: * Ysabel Santacruz NP *Interpreting Physician: * Philomena Joseph MD *Shank Breaker: * Becka Foreman Indications: POST WATC. Study [...] NAME: AUBRIE DEL TORO ACCOUNT #: [id number] pericardial effusion is identified. Measurements Left ventricle [...] NAME: AUBRIE DEL TORO ACCOUNT #: [id number] 2. Left atrium: The atrium is mildly dilated. 3. Pericardium, extracardiac: A trivial pericard ial effusion is identified. Prepared and electronically signed by Philomena Joseph MD 10/29/2020 17:00 Electronically Signed by Philomena Joseph MD on 0 10/29/20 at 1700 PATIENT NAME: AUBRIE DEL TORO ACCOUNT #: [id number] 2020-10-29 [facility] 16:36:00-00:00 [facility] ([facility]) Discharge Summary REPORT#:[id number] REPORT STATUS: Signed DATE:10/29/20 TIME: 1636 PATIENT: AUBRIE DEL TORO UNIT #: [id number] [facility] [birth year] AGE: 80 SEX: F ATTEND: Narinder Osborn MD ADM AUTHOR: Stephan Ferguson * ALL edits or amendments must be made on the KangaDo/computer document * General Information Discharge date: 10/29/20 [...] emergency. Patient stable to be discharged to [facility] for outpatient follow-up. Med Rec PCP PCP: [...] stable. Right groin suture removed by this NEW CAR SALESPERSON. No infect ion, bleeding, or hematoma. Dermabond applied and intact. Post watchman discharge instructions provided to the patient Patient is to follow-up with her PCP and cardiol ogist in 1 to 2 weeks Also follow-up with percolator operator for the 45-day SENG after which follow-up [...] f breath lightheadedness or dizziness to her percolator operator. Care Time Spent: The total cvbm-kn-pbee or floor/unit time for th is encounter was [] minutes Discharge Instructions PCP )( Discharge to: Home/Self Care Discharge Instructions Additional Discharge Routines: PCP Follow-Up, At tending Follow-Up, Software Engineering Associate Manager Follow-Up )( Diet: Resume Home Diet/Feeds, Cardiac Follow-up Appointments PCP follow up: PCP: Eddie Solis MD PCP follow up timeframe: In 1-2 weeks Attending Physician: Attending Physician: Eagle Osborn MD Consulting provider 1: Provider 1: Eagle Osborn MD Specialty: CardiologyInterventional Consult follow up timeframe: In 1-2 weeks Electronically Signed by Stephan Ferguson on 0 11/06/20 at 1230 RPT #:[id number] END OF REPORT 2020-10-29 [facility] 16:36:00-00:00 [facility] ([facility]) Discharge Summary REPORT#:[id number] REPORT STATUS: Signed DATE:10/29/20 TIME: 163 PATIENT: AUBRIE DEL TORO UNIT #: [id number] ROOM/BED: [place] [address] : 39 AGE: 80 SEX: F ATTEND: Narinder Osborn MD ADM AUTHOR: Stephan Ferguson * ALL edits or amendments must be made on the Kanga[employer]/computer document * General Information Discharge date: 10/29/20 [...] emergency. Patient stable to be discharged to [facility] for outpatient follow-up. Med Rec PCP PCP: [...] stable. Right groin suture removed by this NEW CAR SALESPERSON. No infect ion, bleeding, or hematoma. Dermabond applied and intact. Post watchman discharge instructions provided to the patient Patient is to follow-up with her PCP and cardiol ogist in 1 to 2 weeks Also follow-up with percolator operator for the 45-day SENG after which follow-up [...] f breath lightheadedness or dizziness to her percolator operator. Care Time Spent: The total vzkc-qx-mbqa or floor/unit time for th is encounter was [] minutes Discharge Instructions PCP )( Discharge to: Home/Self Care Discharge Instructions Additional Discharge Routines: PCP Follow-Up, At tending Follow-Up, Software Engineering Associate Manager Follow-Up )( Diet: Resume Home Diet/Feeds, Cardiac [...] Osborn MD on 07/21 at 0952 RPT #:[id number] END OF REPORT 2020-10-29 1432-1995 [facility] 13:53:00-00:[address] [place], [place] [id number] PATIENT NAME: AUBRIE DEL TORO ADMIT DATE: 0 10/29/20 ACCOUNT NO: [id number] ROOM NO: KOMAL AGE: 80 REPORT TYPE: CARDIAC CATHETERIZATION REPORT SEX: F ADMITTING PHYSICIAN:Eagle Osborn MD ATTENDING PHYSICIAN:Eagle Osborn MD PROCEDURE DATE: 10/29/2020 OPERATION PERFORMED: Left atrial appendage closu re using 31-mm Watchman FLX closure device. INDICATIONS: Atrial fibrillation with high risk for stroke and multiple falls and increased risk for falling. ACCESS: Right femoral vein, 16-Cameroonian closed wit h zgbfjg-xl-oijuz suture. PRIMARY OPERATORS: Eagle Osborn MD OPTICAL COATING TECHNICIAN: Philomena oJseph MD COMPLICATIONS: None. BLEEDING: Less than 20 [...] vein under the ultras ound guidance. A 6-Cameroonian sheath was placed and then u pgraded to a 16-Cameroonian Cook sheath. Subsequently, I took the SL1 sheath into the SVC over the wire w ith a [employer] needle inside descended under fluoroscopy and SENG [...] position. Then sheath was removed an d uhkfdp-lp-layjj suture was applied with good hemostasis. The patient was se nt to recovery in stable condition. CONCLUSION: Successful left atrial appendage closure using a 31-mm Watchman FLX closure device. PATIENT NAME: AUBRIE DEL TORO ACCOUNT #: [id number] Dictated By: Eagle Osborn MD WT: CATH:RAFAEL/DEBRA/NTS Conf#: [id number]/DID#: [id number] Authenticated by Eagle Osborn MD On 11/03/2020 08:14:10 AM Electronically Signed by Eagle Osborn MD on at 0814 PATIENT NAME: AUBRIE DEL TORO ACCOUNT #: [id number] 2020-10-29 [id number] [facility] 13:49:00-00:[address] [place] [id number] PATIENT NAME: AUBRIE DEL TORO ADMIT DATE: 10/29/20 ACCOUNT NO: [id number] ROOM NO: [facility] AGE: 80 REPORT TYPE: eELECTROCARDIOGRAM REPORT SEX: F ADMITTING PHYSICIAN:Eagle Osborn MD ATTENDING PHYSICIAN:Eagle Osborn MD Order: [id number] Test Reason : S/P WATCHMAN Test Date/Time [...] 13:55, Significant changes have occurred Confirmed by KENDELL RIVERA MD ([id number]) on 10/01 5:31:57 PM Referred By: Eagle Osborn Confirmed by:MARY RIVERA MD at 1739 PATIENT NAME: AUBRIE DEL TORO ACCOUNT #: [id number] 2020-10-27 [facility] 16:23:00-00:00 [facility] ([facility]) Consultation Note - Brief REPORT#:[id number] REPORT STATUS: Signed DATE:10/27/20 TIME: 1623 PATIENT: AUBRIE DEL TORO UNIT #: [id number] ROOM/BED: : 39 AGE: 80 SEX: F ATTEND: Narinder Osborn MD ADM AUTHOR: Ramirez Andrea MD * ALL edits or amendments must be made on the el [employer]/computer document * History of Present Illness HPI [...] 1 445 AC (LACTATED RINGERS) IV 11/26 235 Sodium Chloride 500 ML PREOP ONCALL 10/27 [...] soft, non-tender, no rebound, no disten tion Neuro/LANDSCAPING SPECIALIST: alert, oriented X 3, normal speech Extremities: [...] op evaluation and watchman shared decision making. [id number] vas score is 4 Adjusted stroke rate 4.8% Has bled score 3 Bleeding rate with 1 year OAC 5.8% [employer] questionnaire was done Patient meets criteria for watchman insertion Electronically Signed by Ramirez Andrea MD on 1 at 1632 [facility] #:[id number] END OF REPORT 2020-10-27 [id number] [facility] 13:55:00-00:[address] [place] [id number] PATIENT NAME: AUBRIE DEL TORO ADMIT DATE: ACCOUNT NO: [id number] ROOM NO: AGE: 80 REPORT TYPE: eELECTROCARDIOGRAM REPORT SEX: F ADMITTING PHYSICIAN: ATTENDING PHYSICIAN:Eagle Osborn MD Order: [id number] Test Reason : PRE-OP WATCHMAN Test Date/Time [...] NAME: AUBRIE DEL TORO ACCOUNT #: [id number] 2019-08-02 Radiation Dose CTDIVOL = 0 (mGy): DLP = 1209.39 (mGy-cm) [facility] 09:03:00-00:00 PROCEDURE INFORMATION: Exam: CT Abdomen Without [...] effusion. Polo Swan MD On 08/03/2019 10:30:04; -O [id number] 2019-08-02 Radiation Dose CTDIVOL = 0 (mGy): DLP = 1209.39 (mGy-cm) [facility] 09:03:00-00:00 PROCEDURE INFORMATION: Exam: CT Abdomen Without And With Contrast, Sharla ho Exam date and time: 08/02/2019 9:22 AM Age: 79 years old Clinical indication: Abnormal findings; Abnormal radiologic finding of the abdomen; Radiologic exam and body structure: U/s kidneys; Patient HX: Left renal mass seen on u/s (outside [facility] per P T. ); Additional info: /with [...] effusion. Polo Swan MD On 08/03/2019 10:30:04; -O [id number] 2019-02-07 [facility] 11:03:00-00:00 [facility]) Clinical Note REPORT#:[id number] REPORT STATUS: Signed DATE:02/07/19 TIME: 1103 PATIENT: AUBRIE DEL TORO UNIT #: [id number] ROOM/BED: [address] : 39 AGE: 78 SEX: F ATTEND: Joyce Rankin MD ADM AUTHOR: Herbert Boyd MD * ALL edits or amendments must be made on the el ectronic/computer document * Clinical Note Note: [facility] Herbert cameron M.D. (cell text [phone]) Assessment/Plan 1.) Anemia of acute blood loss- [...] 98 Nasal cannula 02/07 0810 100 Nasal 3.358905 32 cannula 02/07 0719 Nasal 3.855481 cannula 02/07 0658 96.4 56 18 130/66 87.2 99 Nasal cannula 02/07 0407 95.7 57 14 111/49 71 100 Nasal cannula 02/07 0018 95 Nasal 3.595926 32 cannula 02/06 2233 96.8 57 16 147/64 92 100 Nasal cannula 02/06 2128 Nasal cannula 02/06 2018 98 Nasal 3.040446 32 cannula 02/06 1926 96.4 59 18 142/61 88 100 Nasal cannula 02/06 1502 96.8 53 18 160/72 103 98 Nasal cannula 02/06 1221 Nasal 3.977079 cannula 02/06 1210 100 Nasal 3.901004 32 cannula 02/06 1210 97.7 53 14 178/72 104 100 Nasal cannula 02/06 1147 97.9 60 16 155/60 95 Nasal 3.033454 cannula 02/06 1145 Nasal 3.736223 cannula 02/06 1144 49 19 159/65 95 Nasal 3.854968 cannula Gen: Alert, oriented, in mild discomfort [...] L Herbert Alamo M.D. at 1204 RPT #:[id number] END OF REPORT 2019-02-07 [facility] 08:07:00-00:00 [facility]) Discharge Summary REPORT#:[id number] REPORT STATUS: Signed DATE:02/07/19 TIME: 806 PATIENT: AUBRIE DEL TORO UNIT #: [id number] [facility] AGE: 78 SEX: F ATTEND: Joyce Rankin MD ADM AUTHOR: Ailyn Lambert NP * ALL edits or amendments must be made on the [employer]/computer document * PCP PCP Discharge to: home [...] from the preoperative state. Laboratory Tests: 02/07 0415 Chemistry Sodium (136 [...] Mean Ox Delivery Rate 02/07 0719 Nasal 3.955562 cannula 02/07 0658 35.8 56 18 130/66 87.2 99 Nasal cannula 02/07 0407 35.4 57 14 111/49 71 100 Nasal cannula 02/07 0018 95 Nasal 3.040876 32 cannula 02/06 2233 36.0 57 16 147/64 92 100 Nasal cannula 02/06 2128 Nasal cannula 02/06 2018 98 Nasal 3.974192 32 cannula 02/06 1926 35.8 59 18 142/61 88 100 Nasal cannula 02/06 1502 36.0 53 18 160/72 103 98 Nasal cannula 02/06 1221 Nasal 3.163385 cannula 02/06 1210 100 Nasal 3.650500 32 cannula 02/06 1210 36.5 53 14 178/72 104 100 Nasal cannula 02/06 1147 36.6 60 16 155/60 95 Nasal 3.696869 cannula 02/06 1145 Nasal 3.790733 cannula 02/06 1144 49 19 159/65 95 Nasal 3.310761 cannula 02/06 1125 49 14 141/62 100 Simple 10.477792 mask 02/06 1123 Simple 10.370146 mask 02/06 1110 36.4 48 26 169/71 [...] undergo PT for gait training, mobilization , lnbte-kd-hbppno, and strengthening. Patient was informed that they ne ed to arrange for therapy as quickly as possible. The imp ortance of early advancement of irfij-tp-zjbxnt with home exercises, and physical therapy was [...] Lambert NP on 01/29 at 0810 RPT #:[id number] END OF REPORT 2019-02-07 [facility] 08:07:00-00:00 [facility]) Discharge Summary REPORT#:[id number] REPORT STATUS: Signed DATE:02/07/19 TIME: 806 PATIENT: AUBRIE DEL TORO UNIT #: [id number] ROOM/BED: Y.317-A : 39 AGE: 78 SEX: F ATTEND: Joyce Rankin MD ADM AUTHOR: Ailyn Lambert NP * ALL edits or amendments must be made on the el [employer]/computer document * PCP PCP Discharge to: home [...] from the preoperative state. Laboratory Tests: 02/07 0415 Chemistry Sodium (136 [...] Mean Ox Delivery Rate 02/07 0719 Nasal 3.959467 cannula 02/07 0658 35.8 56 18 130/66 87.2 99 Nasal cannula 02/07 0407 35.4 57 14 111/49 71 100 Nasal cannula 02/07 0018 95 Nasal 3.481094 32 cannula 02/06 2233 36.0 57 16 147/64 92 100 Nasal cannula 02/06 2128 Nasal cannula 02/06 2018 98 Nasal 3.627175 32 cannula 02/06 1926 35.8 59 18 142/61 88 100 Nasal cannula 02/06 1502 36.0 53 18 160/72 103 98 Nasal cannula 02/06 1221 Nasal 3.827251 cannula 02/06 1210 100 Nasal 3.876900 32 cannula 02/06 1210 36.5 53 14 178/72 104 100 Nasal cannula 02/06 1147 36.6 60 16 155/60 95 Nasal 3.470657 cannula 02/06 1145 Nasal 3.561382 cannula 02/06 1144 49 19 159/65 95 Nasal 3.586459 cannula 02/06 1125 49 14 141/62 100 Simple 10.283481 mask 02/06 1123 Simple 10.431483 mask 02/06 1110 36.4 48 26 169/71 [...] undergo PT for gait training, mobilization , edead-hf-sjlvna, and strengthening. Patient was informed that they ne ed to arrange for therapy as quickly as possible. The imp ortance of early advancement of ieirr-hl-tzianl with home exercises, and physical therapy was [...] on 01/29 at 0810 at 0830 RPT #:[id number] END OF REPORT 2019-02-06 [facility] 17:46:00-00:00 [facility] ([facility] Clinical Note REPORT#:[id number] REPORT STATUS: Signed DATE:02/06/19 TIME: 1746 PATIENT: AUBRIE DEL TORO UNIT #: [id number] ROOM/BED: Y317-A : 39 AGE: 78 SEX: F ATTEND: Joyce Rankin MD ADM AUTHOR: Herbert Boyd MD * ALL edits or amendments must be made on the el [employer]/computer document * Clinical Note Note: [facility] Herbert cameron MD (cell text [phone]) Internal Medicine Consult at request of : Dr Joyce Rankin Chief Complaint: Right knee pain HPI: .78 yo F now s/p Right Total Knee Arthropla sty (TKA) by Dr. Rankin. Ms. Del Toro relates years of pro gressive right knee pain (recently severe, -03/10), worse with activity, and achy and stiff [...] 103 98 Nasal cannula 02/06 1221 Nasal 3.209879 cannula 02/06 1210 97.7 53 14 178/72 104 100 Nasal cannula 02/06 1147 97.9 60 16 155/60 95 Nasal 3.127488 cannula 02/06 1145 Nasal 3.209150 cannula 02/06 1144 49 19 159/65 95 Nasal 3.708683 cannula 02/06 1125 49 14 141/62 100 Simple 10.409863 mask 02/06 1123 Simple 10.418717 mask 02/06 1110 97.5 48 26 169/71 [...] Rx. Herbert Alamo M.D. Thanks! 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 POSTOPERATIVE DIAGNOSIS: Right knee end-stage de generative joint disease. PROCEDURE PERFORMED: Right total knee arthroplas ty. SURGEON: Steve Rankin MD OPTICAL COATING TECHNICIAN: aJne Neumann PA-C Knee arthroplasty requires an child care assistant for hold ing of retractors for wide exposure so that the surgeon has both hands free to perform the surgery. In addition, with extremity kael emmie, the child care assistant positions and stabilizes the leg in order for the surgeon to use his hands to ope rate. Retraction for exposure and visualization, and stabi lization of the extremity are vital to the procedure and not possible without an child care assistant. Dr. Rankin is not part of any residency or fellowship training progr [facility] and therefore required the help of the child care assistant listed above for this surgery. ANESTHESIA: [...] patella was r etracted laterally by the child care assistant and the leg was held in position by the child care assistant. The proximal medial tibia wa s denuded, with release of medial soft-tissues, the PATIENT NAME: AUBRIE DEL TORO ACCOUNT #: [id number] extent of which was dictated by the [...] stabilized in the appropriate position by the child care assistant for tibial preparation. The tib ia [...] The trial patellar component was placed. Knee uuoav-pq-mvwjnq, stability, and patellar tr acking were found to be excellent. The trials were removed, and as the cement was m ixed, all cut surfaces were thoroughly washed and dried. The child care assistant held the retractors for exposure and [...] NAME: AUBRIE DEL TORO ACCOUNT #: [id number] closure. Sterile dressing was applied. The patient was awakened and transferred to the recovery room in stable condition. ESTIMATED BLOOD LOSS: 50 mL. SPECIMENS: None. Dictated By: Steve Rankin MD WT: OP:TAMMY/FRANCISCA. Conf#: [id number]/DID#: [id number] Authenticated by Steve Rankin MD On 02/08/20 08:57:22 AM at 0857 PATIENT NAME: AUBRIE DEL TORO ACCOUNT #: [id number] 2019-02-06 [facility] 10:19:00-00:00 [facility]) Op/Inv Procedure Note - Brief REPORT#:[id number] REPORT STATUS: Signed DATE:02/06/19 TIME: 1019 PATIENT: AUBRIE DEL TORO UNIT #: [id number] ROOM/BED: [place] [address] : 39 AGE: 78 SEX: F ATTEND: Joyce Rankin MD ADM AUTHOR: Steve Rankin MD * ALL edits or amendments must be made on the el [employer]/computer document * Op/Inv Proc Note - Brief TEXT Brief Op/Inv Procedure Note Note details: Pre-procedure diagnosis: Right Knee Degenerative Joint Disease Post-procedure diagnosis: Same Procedures performed: Right Total Knee Arthropla sty Primary Surgeon: LAITH Joint Supervisor: [KAYDEN SMYTH] Findings: Severe degenerativ e disease see dictated operative report for details Complications: None Estimated Blood Loss in ml's: [50] cc Specimens removed/altered: None at 1019 RPT #:[id number] END OF REPORT
[2023-02-04 20:41] LABS: Absolute Lymphocytes (CBC) 0.7 K/uL (0.7-4.9); Hematocrit 28.4 % (36.0-45.0); Lymphocytes % 8.3 % (15.3-44.8); MCV 87.6 fL (80-100); MPV 9.5 fL (7.6-11.3); RBC Red Blood Cell Count 3.24 M/uL (3.86-4.86)
[2023-02-04 20:52] LABS: Albumin 2.9 g/dL (3.4-5.0); Bilirubin Direct 0.2 mg/dL (0-0.2); Bilirubin Indirect, Calculated 0.3 mg/dL (0.2-0.8); Bilirubin Total 0.5 mg/dL (0.2-1.0); Potassium 4.3 mEq/L (3.5-5.1); Protein, Total 6.1 g/dL (6.4-8.2)
--- NOTE | 2023-02-04 21:19 | RAD REPORT ---
EXAM DESCRIPTION: RADChest Single View02/04/2023 8:48 pm CLINICAL HISTORY: DYSPNEA COMPARISON: Chest Single View dated 01/13/2023; Chest Single View dated 01/12/2023; Chest Pa And Lat ( 2 Views) dated 01/05/2023; Chest Single View dated 12/29/2022 TECHNIQUE: Portable AP view of the chest. FINDINGS: Progressive central interstitial and bibasilar fluffy opacities. Increasing left pleural e ffusion. No pneumothorax . The mediastinal contours are unchanged. The heart is mildly enlarged. IMPRESSION: Findings suggestive of pulmonary edema, possibly of cardiogenic origin.
[2023-02-04] MEDS ORDERED: FUROSEMIDE 40 MG/4 ML VIAL ONE (21:49)
--- NOTE | 2023-02-04 21:55 | EDPHYS ---
Physician Documentation [facility] Name: Aubrie Del Toro Age: 82 yrs Sex: Female : 1940 Arrival Date: 02/04/2023 Time: 19:48 Bed 20 Private MD: ED Physician Turner Thakur HPI: 02/04 20:19 This 82 yrs old Female presents to ER via EMS with complaints of Generalized weakness. rt 20:19 Patient presents to the ED with generalized weakness as well as shortness of breath for rt the past few days. Patient states that she is unable to walk currently. She reports mild dizziness but denies other acute complaints. Denies nausea, vomiting, diarrhea, pain. Symptoms are moderate in severity, no other aggravating or alleviating factors.. Historical: - Allergies: 20:36 No Known Allergies; ha1 - Home Meds: 20:36 carvedilol 12.5 mg Oral tab 1 tab 2 times per day [Active]; Lasix 40 mg Oral tab 1 tab ha1 once daily [Active]; metoprolol tartrate 50 mg Oral tab [Active]; Xarelto 20 mg Oral tab 1 tab once daily [Active]; - PMHx: 20:36 Atrial fibrillation; bladder issues; Cataracts; GERD; Headaches; Hypertension; ha1 Hypothyroidism; l eblow melanoma; lymphedema; neuropathy; - PSHx: 20:36 Appendectomy; Total abdominal hysterectomy; ha1 - Immunization history:: Adult Immunizations up to date. - Social history:: Smoking status: unknown. - Family history:: not pertinent. ROS: 20:19 Constitutional: Negative for fever, chills, and weight loss, Cardiovascular: Negative rt for chest pain, palpitations, and edema, Abdomen/GI: Negative for abdominal pain, nausea, vomiting, diarrhea, and constipation, MS/Extremity: Negative for injury and deformity, Skin: Negative for injury, rash, and discoloration, Psych: Negative for depression, anxiety, suicide ideation, homicidal ideation, and hallucinations. 20:19 Respiratory: Positive for shortness of breath, Negative for cough. 20:19 Neuro: Positive for weakness, Negative for altered mental status. Exam: 20:19 Constitutional: This is a well developed, well nourished patient who is awake, alert, rt and in no acute distress. Head/Face: Normocephalic, atraumatic. Chest/axilla: Normal chest wall appearance and motion. Nontender with no deformity. No lesions are appreciated. Cardiovascular: Regular rate and rhythm with a normal S1 and S2. No gallops, murmurs, or rubs. Normal PMI, no JVD. No pulse deficits. Respiratory: Lungs have equal breath sounds bilaterally, clear to auscultation and percussion. No rales, rhonchi or wheezes noted. No increased work of breathing, no retractions or nasal flaring. Abdomen/GI: Soft, non-tender, with normal bowel sounds. No distension or tympany. No guarding or rebound. No evidence of tenderness throughout. Skin: Warm, dry with normal turgor. Normal color with no rashes, no lesions, and no evidence of cellulitis. MS/ Extremity: Pulses equal, no cyanosis. Neurovascular intact. Full, normal range of motion. Neuro: Awake and alert, GCS 15, oriented to person, place, time, and situation. Cranial nerves II-XII grossly intact. Motor strength 5/5 in all extremities. Sensory grossly intact. Cerebellar exam normal. Normal gait. Psych: Awake, alert, with orientation to person, place and time. Behavior, mood, and affect are within normal limits. 21:04 ECG was reviewed by the Attending Physician. rt Vital Signs: 20:01 BP 179 / 56; Pulse 54; Resp 13; Temp 97.9; Pulse Ox 100% on 10 lpm Non-rebreather mask; ha1 Weight 83.46 kg; Height 5 ft. 6 in. ; 21:00 BP 175 / 55; Pulse 54; Resp 17 S; Pulse Ox 100% on 10 lpm Non-rebreather mask; ha1 22:00 BP 152 / 45; Pulse 53; Resp 17 S; Pulse Ox 96% on 5 lpm NC; ha1 23:00 BP 155 / 47; Pulse 50; Resp 14 S; Pulse Ox 97% on R/A; ha1 20:01 Body Mass Index 29.70 (83.46 kg, 167.64 cm) ha1 MDM: 20:02 Patient medically screened. rt 02/05 02:41 Differential Diagnosis Sepsis, CHF, pneumonia. Data reviewed: vital signs, nurses rt notes. Consideration of Admission/Observation Patient was admitted/placed on observation. Management of patient was discussed with the following: Hospitalist: Agrees to admit. I considered the following discharge prescriptions or medication management in the emergency department Medications were administered in the Emergency Department. See MAR. Independent interpretation of the following test(s) in the Emergency Department X-Ray: My interpretation is Pulmonary edema seen on my interpretation of the x-ray image. Test considered but Not performed: CT: No focal neurologic deficits, CT scan of the head not indicated. Care significantly affected by the following chronic conditions: Atrial fibrillation. Counseling: I had a detailed discussion with the patient and/or guardian regarding: the historical points, exam findings, and any diagnostic results supporting the discharge/admit diagnosis, lab results, radiology results, the need for further work-up and treatment in the hospital. 02/04 20:06 Order name: Basic Metabolic Panel; Complete Time: 20:53 rt 02/04 20:06 Order name: CBC with Diff; Complete Time: 20:53 rt 02/04 20:06 Order name: LFT's; Complete Time: 20:53 rt 02/04 20:06 Order name: Magnesium; Complete Time: 20:53 rt 02/04 20:06 Order name: NT PRO-BNP; Complete Time: 20:53 rt 02/04 20:06 Order name: Troponin HS; Complete Time: 20:53 rt 02/04 20:06 Order name: XRAY Chest (1 view); Complete Time: 21:22 rt 02/04 20:06 Order name: EKG; Complete Time: 20:07 rt 02/04 20:06 Order name: Cardiac monitoring; Complete Time: 20:38 rt 02/04 20:06 Order name: EKG - Nurse/Tech; Complete Time: 20:56 rt 02/04 20:06 Order name: IV Saline Lock; Complete Time: 20:38 rt 02/04 20:06 Order name: Labs collected and sent; Complete Time: 20:38 rt 02/04 20:06 Order name: O2 Per Protocol; Complete Time: 20:38 rt 02/04 20:06 Order name: O2 Sat Monitoring; Complete Time: 20:38 rt EC/07 21:04 Rate is 53 beats/min. Rhythm is regular, Sinus bradycardia with No ectopy. QRS [place] is rt Normal. [place] interval is normal. QRS interval is normal. QT interval is normal. No Q waves. T waves are Normal. No ST changes noted. Interpreted by me. Administered Medications: 21:52 Drug: Furosemide IVP 40 mg Route: IVP; Site: left antecubital; ha1 22:58 Follow up: Response: No adverse reaction ha1 Disposition Summary: 02/04/23 21:54 Hospitalization Ordered Hospitalization Status: Observation rt Provider: Sarthak Gomes rt Location: Telemetry/MedSurg (observation) rt Condition: Stable rt Problem: an acute exacerbation rt Symptoms: have improved rt Bed/Room Type: Standard rt Room Assignment: 429(02/04/23 22:26) jw7 Diagnosis - Acute systolic (congestive) heart failure rt - Hypoxemia rt Forms: - Medication Reconciliation Form rt - SBAR form rt Signatures: Dispatcher [employer] Sadaf Dang jw7 Charlene Joseph RN RN ha1 Turner Thakur MD MD rt Corrections: (The following items were deleted from the chart) 22: 21:54 rt jw7
--- NOTE | 2023-02-04 21:55 | ER ---
Nurse's Notes [facility] Name: Aubrie Del Toro Age: 82 yrs Sex: Female : 1940 Arrival Date: 02/04/2023 Time: 19:48 Bed 20 Private MD: Diagnosis: Acute systolic (congestive) heart failure;Hypoxemia Presentation: 02/04 20:01 Acuity: [facility] 3 ha1 20:01 Initial Sepsis Screen: Does the patient meet any 2 criteria? No. Patient's initial ha1 sepsis screen is negative. Does the patient have a suspected source of infection? No. Patient's initial sepsis screen is negative. 20:01 Risk Assessment: Do you want to hurt yourself or someone else? Patient reports no ha1 desire to harm self or others. Onset of symptoms was February 02, 2023. 20:02 Chief complaint: EMS states: weakness SOB x 2 days from detention placed on O2 2 kl days ago not normally on O2 reports not helping anymore room air sat 89% recently discharged for UTI. Coronavirus screen: Vaccine status: Patient reports receiving the 2nd dose of the covid vaccine. The client reports previous COVID testing was negative. Date of collection: February 04, 2023 per detention staff. Ebola Screen: Patient negative for fever greater than or equal to 101.5 degrees Fahrenheit, and additional compatible Ebola Virus Disease symptoms. 20:02 Method Of Arrival: EMS: [facility] Triage Assessment: 20:01 General: Appears uncomfortable, Behavior is calm, cooperative. Pain: Denies pain. ha1 Neuro: Level of Consciousness is awake, alert, obeys commands, Oriented to person, place, time, situation. Cardiovascular: Heart tones S1 S2 present Patient's skin is warm and dry. Rhythm is sinus bradycardia. Respiratory: Reports shortness of breath at rest Airway is patent Respiratory effort is even, unlabored, Respiratory pattern is regular, symmetrical, pt. on a non-re breather. Breath sounds with wheezes bilaterally. GI: No signs and/or symptoms were reported involving the gastrointestinal system. : No signs and/or symptoms were reported regarding the genitourinary system. Derm: Skin is pink, warm \T\ dry. Musculoskeletal: Circulation, motion, and sensation intact. Historical: - Allergies: 20:36 No Known Allergies; ha1 - Home Meds: 20:36 carvedilol 12.5 mg Oral tab 1 tab 2 times per day [Active]; Lasix 40 mg Oral tab 1 tab ha1 once daily [Active]; metoprolol tartrate 50 mg Oral tab [Active]; Xarelto 20 mg Oral tab 1 tab once daily [Active]; - PMHx: 20:36 Atrial fibrillation; bladder issues; Cataracts; GERD; Headaches; Hypertension; ha1 Hypothyroidism; l eblow melanoma; lymphedema; neuropathy; - PSHx: 20:36 Appendectomy; Total abdominal hysterectomy; ha1 - Immunization history:: Adult Immunizations up to date. - Social history:: Smoking status: unknown. - Family history:: not pertinent. Screenin:01 [facility] ED Fall Risk Assessment (Adult) History of falling in the last 3 months, ha1 including since admission Confusion or Disorientation No (0 pts) Intoxicated or Sedated No (0 pts) Impaired Gait Yes (1 pt) Mobility Assist Device Used Yes (1 pt) Altered Elimination No (0 pt) Score/Fall Risk Level 3 or more points = High Risk Oriented to surroundings, Maintained a safe environment, Educated pt \T\ family on fall prevention, incl call for assistance when getting out of bed. 20:37 Abuse screen: Denies threats or abuse. Denies injuries from another. Nutritional ha1 screening: No deficits noted. Tuberculosis screening: No symptoms or risk factors identified. Assessment: 21:00 Reassessment: Patient and/or family updated on plan of care and expected duration. Pain ha1 level reassessed. Patient is alert, oriented x 3, equal unlabored respirations, skin warm/dry/pink. 22:00 Reassessment: Patient and/or family updated on plan of care and expected duration. Pain ha1 level reassessed. Patient is alert, oriented x 3, equal unlabored respirations, skin warm/dry/pink. Vital Signs: 20:01 BP 179 / 56; Pulse 54; Resp 13; Temp 97.9; Pulse Ox 100% on 10 lpm Non-rebreather mask; ha1 Weight 83.46 kg; Height 5 ft. 6 in. ; 21:00 BP 175 / 55; Pulse 54; Resp 17 S; Pulse Ox 100% on 10 lpm Non-rebreather mask; ha1 22:00 BP 152 / 45; Pulse 53; Resp 17 S; Pulse Ox 96% on 5 lpm NC; ha1 23:00 BP 155 / 47; Pulse 50; Resp 14 S; Pulse Ox 97% on R/A; ha1 20:01 Body Mass Index 29.70 (83.46 kg, 167.64 cm) ha1 ED Course: 20:00 Patient arrived in ED. kl 20:01 Turner Thakur MD is Attending Physician. rt 20:01 Arm band placed on right wrist. ha1 20:01 Patient has correct armband on for positive identification. Placed in gown. Bed in low ha1 position. Call light in reach. Side rails up X 1. 20:05 Maintain EMS IV. Dressing intact. Good blood return noted. Site clean \T\ dry. Gauge \T\ cunningham 1 site: 20 jaret left AC. 20:34 Charlene Joseph, DARIELA is Primary Nurse. ha1 20:38 Basic Metabolic Panel Sent. ha1 20:38 CBC with Diff Sent. ha1 20:38 LFT's Sent. ha1 20:38 Magnesium Sent. ha1 20:38 NT PRO-BNP Sent. ha1 20:38 Troponin HS Sent. ha1 20:49 XRAY Chest (1 view) In Process Unspecified. EDMS 20:58 EKG done, by ED staff, reviewed by Turner Thakur MD. jw7 21:54 Sarthak Gomes MD is Hospitalizing Provider. rt 22:47 Triage completed. ha1 22:54 No provider procedures requiring assistance completed. Patient admitted, IV remains in ha1 place. Administered Medications: 21:52 Drug: Furosemide IVP 40 mg Route: IVP; Site: left antecubital; ha1 22:58 Follow up: Response: No adverse reaction ha1 Medication: 23:41 VIS not applicable for this client. ha1 Outcome: 21:54 Decision to Hospitalize by Provider. rt 23:41 Patient left the ED. vc1 23:41 Condition: stable ha1 23:41 Admitted to Med/surg accompanied by tech, via stretcher, with oxygen, with chart, ha1 Report called to DARIELA Salgado 23:41 Discharge instructions given to patient, family, Instructed on the need for admit, Demonstrated understanding of instructions. Signatures: Dispatcher [employer] EDMS Luanne Tse RN RN kl Calcote, Vanessa, RN RN vc1 Sadaf Castaneda jw7 Charlene Joseph RN RN ha1 Turner Thakur MD MD rt
--- NOTE | 2023-02-04 22:35 | P.HP ---
Certification for Inpatient Patient admitted to: Inpatient With expected LOS: >2 Midnights Patient will require the following post-hospital care: None Practitioner: I am a practitioner with admitting privileges, knowledge of patient current condition, hospital course, and medical plan of care. Services: Services provided to patient in accordance with Admission requirements found in Title 42 Section 412.3 of the Code of Federal Regulations Patient History Date of Service: 02/04/23 Reason for admission: CHF exacerbation History of Present Illness: 82-year-old female with history of chronic diastolic congestive heart failure, atrial fibrillation status post Watchman procedure, hypertension, hyperlipidemia presents to the emergency department with chief complaint of shortness of breath. She was recently admitted on 01/12/2023 and subsequently discharged on 01/20/[address] Solis for recurrent urinary tract infection. She was treated with IV meropenem which she finished approximately 1 week ago. She has recently become a resident of [facility] and for this reason Dr. Solis is no longer her PCP. She was evaluated in the emergency department found to have a CHF exacerbation, BNP is elevated chest x-ray shows concern for pulmonary edema she is requiring nasal cannula oxygen at this time maintain saturations greater than 90%. She will be admitted for CHF exacerbation. Allergies No Known Allergies Allergy (Verified 01/01/21 20:48) Home Medications: Liothyronine Sodium [Cytomel] 5 mcg PO DAILY 01/01/21 ursodioL [Ursodiol] 300 mg PO BID 01/01/21 Pregabalin [Lyrica*] 150 mg PO BID 02/19/21 Rabeprazole Sodium 20 mg PO DAILY 10/06/21 Levothyroxine [Synthroid*] 112 mcg PO [id number] 05/25/22 Rosuvastatin [Crestor*] 5 mg PO BEDTIME 05/25/22 Losartan Potassium 100 mg PO DAILY #90 tab 05/28/22 Potassium Chloride 20 meq PO DAILY 08/11/22 Amiodarone HCl [Cordarone*] 1 tab PO DAILY 12/30/22 Aspirin [Aspirin EC] 1 tab PO DAILY 12/30/22 Magnesium Citrate and Oxide [Magnesium] 1 cap PO DAILY 12/30/22 Memantine HCl 1 tab PO BID 12/30/22 Methenamine Hippurate 1 tab PO BID 12/30/22 Montelukast [Singulair*] 1 tab PO DAILY 12/30/22 Guaif/Dm [Robitussin Dm*] 10 ml PO Q6H PRN 01/11/23 Potassium Oral Tab [Klor-Con 10 mEq Tab*] 10 meq PO DAILY #90 tab 01/11/23 levETIRAcetam [Keppra*] 250 mg PO BID tab 01/11/23 Pantoprazole [Protonix Tab*] 40 mg PO DAILY tab 01/20/23 Torsemide [Demadex*] 5 mg PO DAILY tab 01/20/23 traMADol HCL [Ultram*] 50 mg PO Q6H PRN tab 01/20/23 - Past Medical/Surgical History Diabetic: No -: Chronic diastolic congestive heart failure -: Hypothyroidism -: GERD -: Neuropathy -: Insomnia -: Hyperlipidemia -: overactive bladder -: Lymphedema -: Atrial fibrillation status post Watchman procedure -: Right Shoulder Replacement -: Bilateral knee replacement -: Hysterectomy -: ULE Melanoma removal -: Tonsilectomy -: Adnoidectomy -: Bilateral eye surgery r/t strabismus -: Watchman Psychosocial/ Personal History: Patient is resident of [facility] - Family History Mother -: Hypertension, Stroke, Other (see notes) Notes: COPD Father -: Heart disease, Other (see notes) Notes: CHF - Social History Smoking Status: Never smoker Alcohol use: No CD- Drugs: No Caffeine use: Yes Place of Residence: Home Review of Systems 10-point ROS is otherwise unremarkable Respiratory: Cough, Shortness of Breath, SOB with Excertion Cardiovascular: Edema Physical Examination - Physical Exam General: Alert, In no apparent distress, Oriented x3, Obese HEENT: Atraumatic, PERRLA, Mucous membr. moist/pink, EOMI, Sclerae nonicteric Neck: Supple, 2+ carotid pulse no bruit, No LAD, Without JVD or thyroid abnormality Respiratory: Diminished, Crackles/rales Cardiovascular: Regular rate/rhythm, Normal S1 S2, Edema Capillary refill: <2 Seconds Gastrointestinal: Normal bowel sounds, No tenderness Musculoskeletal: No tenderness Integumentary: No rashes Neurological: Normal gait, Normal speech, Normal strength at 5/5 x4 extr, Normal tone, Normal affect Lymphatics: No axilla or inguinal lymphadenopathy - Studies Laboratory Data (last 24 hrs) 02/04/23 20:25: WBC 8.40, Hgb 9.5 L, Hct 28.4 L, Plt Count 145 L 02/04/23 20:25: Sodium 145, Potassium 4.3, BUN 23 H, Creatinine 1.34 H, Glucose 104, Magnesium 2.0, Total Bilirubin 0.5, AST 14 L, ALT 19, Alkaline Phosphatase 98 Assessment and Plan - Plan Assessment: Acute on chronic diastolic congestive heart failure Atrial fibrillation status post Watchman procedure Hypertension Hyperlipidemia Hypothyroidism Plan: Acute on chronic diastolic congestive heart failure Currently requiring nasal cannula oxygen to maintain saturations greater than 90%, continue IV diuresis with Lasix 40 mg twice daily, no recent changes in her medications that she is aware of. She has been compliant with her p.o. Lasix. We will consult cardiology. Atrial fibrillation status post Watchman procedure Continue daily aspirin, amiodarone. Hypertension Hyperlipidemia Hypothyroidism Continue home medications once verified. DVT PPX: Lovenox Code status:full Discharge Plan: Home Plan to discharge in: 72 Hours - Advance Directives Does patient have a Living Will: No Does patient have a Durable POA for Healthcare: No - Code Status/Comfort Care Code Status Assessed: Yes (Full code) Critical Care: No Time Spent Managing Pts Care (In Minutes): 55
[2023-02-05] MEDS ORDERED: ONDANSETRON 4 MG/2 ML VIAL IV PRN (00:17)
[2023-02-05] MEDS: HYDRALAZINE HCL 25 MG TABLET PO SCH ×2 (01:33→21:29)
[2023-02-05 01:44] VITALS: BMI 33.5
[2023-02-05 03:59] LABS: Hematocrit 29.4 % (36.0-45.0); Lymphocytes % 13.1 % (15.3-44.8); MCV 87.4 fL (80-100); MPV 9.3 fL (7.6-11.3); RBC Red Blood Cell Count 3.36 M/uL (3.86-4.86)
[2023-02-05 04:24] LABS: Magnesium 1.9 mg/dL (1.6-2.4); Potassium 3.9 mEq/L (3.5-5.1)
[2023-02-05] MEDS ORDERED: POTASSIUM 25 MEQ EFFERV TAB PO ONE (05:00)
[2023-02-05] MEDS: LEVOTHYROXINE SOD 0.112 MG TAB PO SCH (06:03)
[2023-02-05] MEDS: ALBUTEROL 2.5 MG/3 ML NEB SOL IH SCH ×3 (07:55→19:45)
[2023-02-05] MEDS: HEPARIN 5000 UNIT/ML 1 ML VIAL SQ SCH ×2 (09:27→21:29)
[2023-02-05] MEDS: FUROSEMIDE 40 MG/4 ML VIAL IV SCH ×2 (09:27→17:30)
[2023-02-05] MEDS: ursodioL 300 MG CAP PO SCH ×2 (09:27→21:30)
[2023-02-05] MEDS: MONTELUKAST 10 MG TAB PO SCH (09:27)
[2023-02-05] MEDS: LOSARTAN POTASSIUM 50 MG TABLET PO SCH (09:28)
[2023-02-05] MEDS: MEMANTINE HCL 10 MG TABLET PO SCH ×2 (09:28→21:31)
[2023-02-05] MEDS: levETIRAcetam 500 MG TAB PO SCH ×2 (09:28→21:29)
[2023-02-05] MEDS: AMIODARONE HCL 200 MG TAB PO SCH (09:28)
[2023-02-05] MEDS: PANTOPRAZOLE 40MG TABLET PO SCH (09:28)
[2023-02-05] MEDS: ASPIRIN EC 81 MG TAB PO SCH (09:28)
[2023-02-05] MEDS: PREGABALIN 75 MG CAP PO SCH ×2 (09:28→21:29)
[2023-02-05] MEDS: LIOTHYRONINE SOD 5 MCG TAB PO SCH (11:41)
--- NOTE | 2023-02-05 14:15 | P.PN ---
Subjective Date of Service: 02/05/23 Chief Complaint: CHF exacerbation No acute events since admission. She reports persistent shortness of breath, which is worse when lying flat. She reports orthopnea and mild lower extremity edema. She denies any chest pain or palpitations. Review of Systems 10-point ROS is otherwise unremarkable Respiratory: Shortness of Breath Cardiovascular: Orthopnea Physical Examination - Vital Signs Temperature: 96.8 F Blood Pressure: 166/68 Pulse: 52 Respirations: 14 Pulse Ox (%): 98 - Physical Exam General: Alert, In no apparent distress, Oriented x3 HEENT: Atraumatic, Mucous membr. moist/pink, Sclerae nonicteric Neck: JVD distended (Minimal) Respiratory: Crackles/rales (Bibasilar) Cardiovascular: Regular rate/rhythm, Normal S1 S2, No gallops, No rubs, No murmurs, Edema (1+ lower extremity pitting edema) Gastrointestinal: Normal bowel sounds, Soft and benign, Non-distended, No tenderness, No rebound, No guarding Musculoskeletal: No clubbing Integumentary: No rashes Neurological: Normal speech, Normal affect - Studies Laboratory Data (last 24 hrs) 02/04/23 20:25: WBC 8.40, Hgb 9.5 L, Hct 28.4 L, Plt Count 145 L 02/04/23 20:25: Sodium 145, Potassium 4.3, BUN 23 H, Creatinine 1.34 H, Glucose 104, Magnesium 2.0, Total Bilirubin 0.5, AST 14 L, ALT 19, Alkaline Phosphatase 98 Assessment And Plan - Plan # Acute on Chronic Decompensated Diastolic Congestive Heart Failure with Preserved Ejection Fraction # Hypertensive Urgency - Consult Cardiology - recommendations appreciated - Chest x-ray = "findings suggestive of pulmonary edema, possibly of cardiogenic origin." - Transthoracic echocardiogram (01/02/2021) = "normal left ventricular ejection fraction 60-65%. mild mitral, tricuspid and pulmonary regurgitation. moderate tricuspid regurgitation. left atrial enlargement." - Ordered repeat transthoracic echocardiogram - Diuresis with IV furosemide for today - Continue home hydralazine, losartan - Hold off on beta-kevon given borderline bradycardia - Daily weights - Strict I/O - Cardiac diet, 1.5 L fluid restriction, 2 g Na restriction # Chronic Atrial Fibrillation s/p Watchman Device - Continue home aspirin, amiodarone # Chronic Kidney Disease Stage III - Creatinine near baseline - IV diuretics as mentioned above - Monitor creatinine and urine output - If worsening, obtain renal ultrasound - Renally dose medications # Hypothyroidism - Continue home levothyroxine, liothyronine # Seasonal Allergies - Continue home montelukast # Neuropathy - Continue home pregabalin # Gastroesophageal Reflux Disease - Continue home pantoprazole Sarthak Gomes M.D.
--- NOTE | 2023-02-05 16:17 | EKG ---
Test Date: 2023-02-04 Test Time: 20:48:42 Vp Marketing: ELISSA MEASUREMENT RESULTS: Intervals: Rate: 53 OK: 208 QRSD: 98 QT: 502 QTc: 471 [place]: P: 12 OK: 208 QRS: 16 T: 26 INTERPRETIVE STATEMENTS: Sinus bradycardia Otherwise normal ECG Compared to ECG 01/12/2023 14:11:43 First degree AV block no longer present Electronically Signed On 02-05-23 16:16:21 CDT by Eagle Osborn
--- NOTE | 2023-02-05 19:34 | CON ---
Date of Consultation: 02/05/2023 Reason For Consultation: Congestive heart failure exacerbation. History Of Present Illness: An 82-year-old female, history of diastolic heart failure, atrial fibril lation, status post appendage closure, dyslipidemia, hypertension, presented with shortness of breath , orthopnea, and lower extremity edema. Denies having any chest pain. No nausea, vomiting, or diarr hea. She was admitted, started on IV diuretics and she is feeling better already. Past Medical History: Diastolic heart failure, hypertension, atrial fibrillation, dyslipidemia. Medications: Refer to reconciliation sheet for detailed list. Allergies: NO KNOWN DRUG ALLERGIES. Family History: No premature coronary artery disease or cancer. Social History: She does not smoke or drink. Does not use any drugs. Review of Systems: All systems were reviewed and they were negative except what is mentioned in HPI. Physical Examination: Vital Signs: Reviewed. Head and Neck: Pupils are equal, reactive to light. Intact eye movements. No JVD. No adenopathy. Neck: Supple. Thyroid is not enlarged. Lungs: Decreased breathing sounds with faint crackles in bases. No accessory muscle use or muscle r etraction. Heart: Heart is regular rate and rhythm. No extra sounds. Abdomen: Soft, nontender. Bowel sounds are positive. No organomegaly. No masses or hernia. No ri gidity or rebound. Extremities: 2+ pitting edema bilaterally. No clubbing or cyanosis. Intact pulses. Skin: No rash noted. Neurologic: Alert, awake, and oriented x3. No acute focal deficits appreciated. Investigations: BUN 22, creatinine 1.3. NT proBNP 7936. Troponins are negative and hemoglobin is 1 0. The chest x-ray showed pulmonary edema. Assessment And Recommendations: 1.Acute on chronic diastolic heart failure exacerbation. The patient is diuresing very well. I agr ee with Lasix. Continue Lasix at 40 mg IV q.12 hours. Monitor BUN, creatinine, electrolytes, and th e patient will need to have a deep venous thrombosis prophylaxis. 2.Hypertension. Blood pressure is acceptable. Continue current management. 3.Atrial fibrillation. She is in sinus status post appendage closure. Continue baby aspirin. SR/MODL Voice ID: [id number] Report ID: [id number]
[2023-02-05] MEDS ORDERED: ROSUVASTATIN 10 MG TAB PO SCH (21:00)
[2023-02-05] MEDS: ROSUVASTATIN 5 MG TABLET PO SCH (21:00)
[2023-02-05] MEDS: DIPHENHYDRAMINE 25 MG TAB/CAP PO SCH (21:29)
[2023-02-06 04:01] LABS: Hematocrit 29.7 % (36.0-45.0); Lymphocytes % 16.4 % (15.3-44.8); MCV 87.2 fL (80-100); MPV 9.4 fL (7.6-11.3); RBC Red Blood Cell Count 3.41 M/uL (3.86-4.86)
[2023-02-06 04:19] LABS: Magnesium 1.6 mg/dL (1.6-2.4); Potassium 3.5 mEq/L (3.5-5.1)
[2023-02-06] MEDS ORDERED: POTASSIUM CL SA 10 MEQ TAB PO ONE ×2 (05:00→05:24)
[2023-02-06] MEDS: LEVOTHYROXINE SOD 0.112 MG TAB PO SCH (05:19)
[2023-02-06] MEDS: ALBUTEROL 2.5 MG/3 ML NEB SOL IH SCH ×3 (08:02→20:50)
[2023-02-06] MEDS: LIOTHYRONINE SOD 5 MCG TAB PO SCH (09:21)
[2023-02-06] MEDS: FUROSEMIDE 40 MG/4 ML VIAL IV SCH ×2 (09:21→17:11)
[2023-02-06] MEDS: ursodioL 300 MG CAP PO SCH ×2 (09:21→21:18)
[2023-02-06] MEDS: LOSARTAN POTASSIUM 50 MG TABLET PO SCH (09:21)
[2023-02-06] MEDS: HEPARIN 5000 UNIT/ML 1 ML VIAL SQ SCH ×2 (09:21→21:21)
[2023-02-06] MEDS: MONTELUKAST 10 MG TAB PO SCH (09:22)
[2023-02-06] MEDS: MEMANTINE HCL 10 MG TABLET PO SCH ×2 (09:22→21:18)
[2023-02-06] MEDS: PANTOPRAZOLE 40MG TABLET PO SCH (09:22)
[2023-02-06] MEDS: levETIRAcetam 500 MG TAB PO SCH ×2 (09:22→21:20)
[2023-02-06] MEDS: HYDRALAZINE HCL 25 MG TABLET PO SCH ×2 (09:23→21:20)
[2023-02-06] MEDS: ASPIRIN EC 81 MG TAB PO SCH (09:23)
[2023-02-06] MEDS: AMIODARONE HCL 200 MG TAB PO SCH (09:23)
[2023-02-06] MEDS: PREGABALIN 75 MG CAP PO SCH ×2 (09:28→21:19)
--- NOTE | 2023-02-06 16:51 | P.PN ---
Subjective Date of Service: 02/06/23 Chief Complaint: CHF exacerbation No acute events overnight. Her breathing continued to improve. She has been weaned down from 4 L to 2 L since yesterday. She reports exertional shortness of breath, orthopnea, and edema. She denies any chest pain or palpitations. Review of Systems 10-point ROS is otherwise unremarkable Respiratory: SOB with Excertion Cardiovascular: Orthopnea, Edema Physical Examination - Vital Signs Temperature: 97.4 F Blood Pressure: 142/48 Pulse: 52 Respirations: 12 Pulse Ox (%): 98 Assessment And Plan - Plan - Physical Exam General: Alert, In no apparent distress, Oriented x3 HEENT: Atraumatic, Mucous membr. moist/pink, Sclerae nonicteric Neck: JVD distended (Minimal) Respiratory: Crackles/rales (Faint bibasilar) Cardiovascular: Regular rate/rhythm, No murmurs, Edema (1+ lower extremity pitting edema) Gastrointestinal: Soft, Non-distended, No tenderness, No rebound, No guarding Musculoskeletal: No clubbing Integumentary: No rashes Neurological: Normal speech, Normal affect # Acute on Chronic Decompensated Diastolic Congestive Heart Failure with Preserved Ejection Fraction # Hypertensive Urgency - Consult Cardiology - recommendations appreciated - Chest x-ray = "findings suggestive of pulmonary edema, possibly of cardiogenic origin." - Transthoracic echocardiogram (01/02/2021) = "normal left ventricular ejection fraction 60-65%. mild mitral, tricuspid and pulmonary regurgitation. moderate tricuspid regurgitation. left atrial enlargement." - Ordered repeat transthoracic echocardiogram - Diuresis with IV furosemide for today - consider to transitioning to PO over the next 24-48 hours - Continue home hydralazine, losartan - Hold off on beta-kevon given borderline bradycardia - Daily weights - Strict I/O - Cardiac diet, 1.5 L fluid restriction, 2 g Na restriction # Chronic Atrial Fibrillation s/p Watchman Device - Continue home aspirin, amiodarone # Chronic Kidney Disease Stage III - Creatinine near baseline - IV diuretics as mentioned above - Monitor creatinine and urine output - If worsening, obtain renal ultrasound - Renally dose medications # Hypothyroidism - Continue home levothyroxine, liothyronine # Seasonal Allergies - Continue home montelukast # Neuropathy - Continue home pregabalin # Gastroesophageal Reflux Disease - Continue home pantoprazole Sarthak Gomes M.D.
[2023-02-06] MEDS ORDERED: Magnesium Sulfate 2gm IVPB 2 G/50 ML BAG IV ONE (16:59)
[2023-02-06] MEDS: ROSUVASTATIN 5 MG TABLET PO SCH (21:00)
[2023-02-06] MEDS: DIPHENHYDRAMINE 25 MG TAB/CAP PO SCH (21:19)
[2023-02-07] MEDS: LEVOTHYROXINE SOD 0.112 MG TAB PO SCH (05:19)
[2023-02-07 06:56] LABS: Absolute Lymphocytes (CBC) 0.6 K/uL (0.7-4.9); Hematocrit 29.2 % (36.0-45.0); Lymphocytes % 9.2 % (15.3-44.8); MCV 87.4 fL (80-100); MPV 9.3 fL (7.6-11.3); RBC Red Blood Cell Count 3.34 M/uL (3.86-4.86)
[2023-02-07 07:10] LABS: Magnesium 2.1 mg/dL (1.6-2.4); Potassium 3.8 mEq/L (3.5-5.1)
[2023-02-07] MEDS: ALBUTEROL 2.5 MG/3 ML NEB SOL IH SCH ×3 (08:00→19:50)
[2023-02-07] MEDS: ursodioL 300 MG CAP PO SCH ×2 (08:59→21:04)
[2023-02-07] MEDS: LIOTHYRONINE SOD 5 MCG TAB PO SCH (08:59)
[2023-02-07] MEDS: FUROSEMIDE 40 MG/4 ML VIAL IV SCH ×2 (09:00→16:33)
[2023-02-07] MEDS: HEPARIN 5000 UNIT/ML 1 ML VIAL SQ SCH ×2 (09:00→21:13)
[2023-02-07] MEDS: AMIODARONE HCL 200 MG TAB PO SCH (09:00)
[2023-02-07] MEDS: ASPIRIN EC 81 MG TAB PO SCH (09:00)
[2023-02-07] MEDS ORDERED: POTASSIUM CL SA 10 MEQ TAB PO ONE (09:00)
[2023-02-07] MEDS: LOSARTAN POTASSIUM 50 MG TABLET PO SCH (09:00)
[2023-02-07] MEDS: MEMANTINE HCL 10 MG TABLET PO SCH ×2 (09:01→21:05)
[2023-02-07] MEDS: levETIRAcetam 500 MG TAB PO SCH ×2 (09:01→21:05)
[2023-02-07] MEDS: PANTOPRAZOLE 40MG TABLET PO SCH (09:01)
[2023-02-07] MEDS: MONTELUKAST 10 MG TAB PO SCH (09:01)
[2023-02-07] MEDS: PREGABALIN 75 MG CAP PO SCH ×2 (09:02→21:05)
[2023-02-07] MEDS: HYDRALAZINE HCL 25 MG TABLET PO SCH ×2 (09:02→21:05)
[2023-02-07] MEDS: ACETAMINOPHEN 500 MG TAB PO PRN ×2 (11:32→21:09)
--- NOTE | 2023-02-07 16:42 | P.PN ---
Subjective Date of Service: 02/07/23 Chief Complaint: CHF exacerbation Patient has no new complain. She states her shortness of breath is better. She is currently tolerating 3 L oxygen by nasal cannula. Baseline oxygen requirement status is unknown Physical Examination - Vital Signs Temperature: 97.6 F Blood Pressure: 114/53 Pulse: 59 Respirations: 18 Pulse Ox (%): 18 Assessment And Plan - Plan Physical Exam General: Alert, In no apparent distress, Oriented x3 Neck: No JVD elevation. Respiratory: Faint bibasilar crackles. Cardiovascular: Regular rate/rhythm, No murmurs, Edema improved. Gastrointestinal: Soft, Non-distended, No tenderness, No rebound, No guarding Musculoskeletal: No clubbing Integumentary: No rashes Neurological: Normal speech, Normal affect Acute on Chronic Decompensated Diastolic Congestive Heart Failure with Preserved Ejection Fraction Hypertensive Urgency -Seen by cardiology - Chest x-ray = "findings suggestive of pulmonary edema, possibly of cardiogenic origin." - Transthoracic echocardiogram (01/02/2021) = "normal left ventricular ejection fraction 60-65%. mild mitral, tricuspid and pulmonary regurgitation. moderate tricuspid regurgitation. left atrial enlargement." - Ordered repeat transthoracic echocardiogram -Status post IV Lasix. Transition to oral Lasix today. - Continue home hydralazine, losartan - Hold off on beta-kevon given borderline bradycardia - Daily weights - Strict I/O - Cardiac diet, 1.5 L fluid restriction, 2 g Na restriction Chronic Atrial Fibrillation s/p Watchman Device - Continue home aspirin, amiodarone Chronic Kidney Disease Stage III -Slight increase in creatinine from yesterday -Transition IV Lasix to maintenance oral Lasix. - Monitor creatinine and urine output Hypothyroidism - Continue home levothyroxine, liothyronine Seasonal Allergies - Continue home montelukast Neuropathy - Continue home pregabalin Gastroesophageal Reflux Disease - Continue home pantoprazole DVT prophylaxis: Heparin SQ.
--- NOTE | 2023-02-07 17:48 | PN ---
Date of Progress Note: 02/07/2023 Subjective: Seen by bedside. She is doing much better, breathing a lot easier. Review of Systems: No chest pain. Has shortness of breath on exertion. No nausea, vomiting, diarrhea. No abdominal pa in. No history of urinary urgency. All other systems reviewed and they were negative. Physical Examination: Vital Signs: Reviewed. Head and Neck: Pupils are equal, reactive to light. Intact eye movements. No cervical lymphadenopa thy. No JVD. Lungs: Clear to auscultation bilaterally. No rhonchi, wheezing, or crackles. No accessory muscle u se. Heart: Regular rate and rhythm with aortic systolic murmur. Abdomen: Soft, nontender. Bowel sounds positive. No organomegaly. No masses or hernia. No rigidi ty or rebound. Extremities: Trace edema bilaterally. No clubbing or cyanosis. Intact pulses. Skin: No rash. Neurologic: Alert, awake. No acute focal deficits appreciated. Investigations: BUN is 31, creatinine 1.42. Assessment And Recommendations: 1.Acute on chronic diastolic heart failure exacerbation, improved significantly. Recommend switch h er to oral Lasix now at 40 mg twice a day. Monitor BUN, creatinine, and electrolytes. 2.Aortic valve stenosis. It is [id number]. 3.Paroxysmal atrial fibrillation. She is in sinus and status post appendage closure. Continue current management including baby aspirin. SR/MODL Voice ID: [id number] Report ID: [id number]
[2023-02-07] MEDS: ROSUVASTATIN 5 MG TABLET PO SCH (21:00)
[2023-02-07] MEDS: DIPHENHYDRAMINE 25 MG TAB/CAP PO SCH (21:05)
[2023-02-07] MEDS: TRAMADOL HCL 50 MG TAB PO PRN (21:10)
[2023-02-08] MEDS: LEVOTHYROXINE SOD 0.112 MG TAB PO SCH (06:27)
[2023-02-08 06:40] LABS: Absolute Lymphocytes (CBC) 0.6 K/uL (0.7-4.9); Hematocrit 31.3 % (36.0-45.0); Lymphocytes % 7.3 % (15.3-44.8); MCV 86.8 fL (80-100); MPV 9.1 fL (7.6-11.3); RBC Red Blood Cell Count 3.61 M/uL (3.86-4.86)
[2023-02-08 07:04] LABS: Potassium 3.7 mEq/L (3.5-5.1)
--- NOTE | 2023-02-08 07:09 | ECHO ---
HEIGHT: 5 ft 11 in WEIGHT: 240 lb 0 oz DATE OF STUDY: 02/07/[address]: Sarthak Gomes MD 2-DIMENSIONAL: YES M.MODE: YES DOPPLER: YES COLOR FLOW: YES TDS: PORTABLE: YES DEFINITY: BUBBLE STUDY: DIAGNOSIS: CONGESTIVE HEART FAILURE CARDIAC HISTORY: CATHERIZATION: SURGERY: PROSTHETIC VALVE: PACEMAKER: MEASUREMENTS (cm) DIASTOLIC (NORMALS) SYSTOLIC (NORMALS) IVSd 1.1 (0.6-1.2) LA Diam 4.7 (1.9-4.0) LVEF 71% LVIDd 4.7 (3.5-5.7) LVIDs 2.8 (2.0-3.5) %FS 40% LVPWd 1.2 (0.6-1.2) Ao Diam 2.4 (2.0-3.7) 2 DIMENSIONAL ASSESSMENT: RIGHT ATRIUM: NORMAL LEFT ATRIUM: ENLARGED RIGHT VENTRICLE: NORMAL LEFT VENTRICLE: MILD LEFT VENTRICULAR HYPERTROPHY TRICUSPID VALVE: MILD TRICUSPID REGURGITATION MITRAL VALVE: MITRAL ANNULAR CALCIFICATION WITH MILD MITRAL REGURGITATION PULMONIC VALVE: MILD PULMONIC INSUFFICIENCY AORTIC VALVE: CALCIFIED PERICARDIAL EFFUSION: NONE AORTIC ROOT: NORMAL LEFT VENTRICULAR WALL MOTION: NORMAL DOPPLER/COLOR FLOW: SEE BELOW COMMENTS: 1. NORMAL LEFT VENTRICULAR EJECTION FRACTION 60-65% WITH NORMAL WALL MOTION 2. LEFT ATRIAL ENLARGEMENT 3. MILD TRICUSPID REGURGITATION 4. MILD PULMONIC INSUFFICIENCY 5. MILD CONCENTRIC LEFT VENTRICULAR HYPERTROPHY 6. MITRAL ANNULAR CALCIFICATION WITH MILD MITRAL REGURGITATION 7. CALCIFIED AORTIC VALVE WITH MODERATE AORTIC STENOSIS AND MILD AORTIC INSUFFICIENCY 8. MODERATE DIASTOLIC DYSFUNCTION TECHNOLOGIST: FERNANDA KRUGER
[2023-02-08] MEDS: ALBUTEROL 2.5 MG/3 ML NEB SOL IH SCH ×3 (07:50→20:30)
[2023-02-08] MEDS ORDERED: POTASSIUM CL SA 10 MEQ TAB PO ONE (08:10)
[2023-02-08] MEDS: LIOTHYRONINE SOD 5 MCG TAB PO SCH (08:57)
[2023-02-08] MEDS: ursodioL 300 MG CAP PO SCH ×2 (08:58→21:22)
[2023-02-08] MEDS: ASPIRIN EC 81 MG TAB PO SCH (08:58)
[2023-02-08] MEDS: MONTELUKAST 10 MG TAB PO SCH (08:58)
[2023-02-08] MEDS: HYDRALAZINE HCL 25 MG TABLET PO SCH ×2 (08:58→21:23)
[2023-02-08] MEDS: levETIRAcetam 500 MG TAB PO SCH ×2 (08:58→21:22)
[2023-02-08] MEDS: PANTOPRAZOLE 40MG TABLET PO SCH (08:58)
[2023-02-08] MEDS: FUROSEMIDE 40 MG TABLET PO SCH ×2 (08:59→16:32)
[2023-02-08] MEDS: HEPARIN 5000 UNIT/ML 1 ML VIAL SQ SCH ×2 (08:59→21:24)
[2023-02-08] MEDS: MEMANTINE HCL 10 MG TABLET PO SCH ×2 (08:59→21:22)
[2023-02-08] MEDS: LOSARTAN POTASSIUM 50 MG TABLET PO SCH (08:59)
[2023-02-08] MEDS: PREGABALIN 75 MG CAP PO SCH ×2 (09:00→21:22)
[2023-02-08] MEDS: AMIODARONE HCL 200 MG TAB PO SCH (09:00)
--- NOTE | 2023-02-08 18:51 | P.PN ---
Subjective Date of Service: 02/08/23 Chief Complaint: CHF exacerbation Patient has no new complain. She states her shortness of breath is better. She is currently tolerating 2 L oxygen by nasal cannula. Physical Examination - Vital Signs Temperature: 97.1 F Blood Pressure: 133/49 Pulse: 55 Respirations: 16 Pulse Ox (%): 90 Assessment And Plan - Plan Physical Exam General: Alert, In no apparent distress, Oriented x3 Neck: No JVD elevation. Respiratory: Faint bibasilar crackles. Cardiovascular: Regular rate/rhythm, No murmurs, Edema improved. Gastrointestinal: Soft, Non-distended, No tenderness, No rebound, No guarding Integumentary: No rashes Neurological: Normal speech, Normal affect Acute on Chronic Decompensated Diastolic Congestive Heart Failure with Preserved Ejection Fraction Hypertensive Urgency -Seen by cardiology - Chest x-ray = "findings suggestive of pulmonary edema, possibly of cardiogenic origin." - Transthoracic echocardiogram (01/02/2021) = "normal left ventricular ejection fraction 60-65%. mild mitral, tricuspid and pulmonary regurgitation. moderate tricuspid regurgitation. left atrial enlargement." -Repeat echo shows normal EF, moderate aortic stenosis. -Status post IV Lasix. Transition to oral Lasix today. - Continue home hydralazine, losartan - Hold off on beta-kevon given borderline bradycardia - Daily weights - Cardiac diet, 1.5 L fluid restriction, 2 g Na restriction Chronic Atrial Fibrillation s/p Watchman Device - Continue home aspirin, amiodarone Chronic Kidney Disease Stage III -Slight increase in creatinine from yesterday -Status post IV Lasix. -Patient is currently on oral Lasix. - Monitor creatinine and urine output Hypothyroidism - Continue home levothyroxine, liothyronine Seasonal Allergies - Continue home montelukast Neuropathy - Continue home pregabalin Gastroesophageal Reflux Disease - Continue home pantoprazole DVT prophylaxis: Heparin SQ. Impaired mobility -PT consult
[2023-02-08] MEDS: ROSUVASTATIN 5 MG TABLET PO SCH (21:00)
[2023-02-08] MEDS: TRAMADOL HCL 50 MG TAB PO PRN (21:23)
[2023-02-08] MEDS: DIPHENHYDRAMINE 25 MG TAB/CAP PO SCH (21:23)
[2023-02-08] MEDS: ACETAMINOPHEN 500 MG TAB PO PRN (21:23)
[2023-02-09] MEDS: LEVOTHYROXINE SOD 0.112 MG TAB PO SCH (06:42)
[2023-02-09] MEDS: ALBUTEROL 2.5 MG/3 ML NEB SOL IH SCH ×3 (08:20→20:30)
[2023-02-09] MEDS: FUROSEMIDE 40 MG TABLET PO SCH ×2 (08:29→16:39)
[2023-02-09] MEDS: HEPARIN 5000 UNIT/ML 1 ML VIAL SQ SCH ×2 (08:29→20:35)
[2023-02-09] MEDS: levETIRAcetam 500 MG TAB PO SCH ×2 (08:29→20:33)
[2023-02-09] MEDS: ASPIRIN EC 81 MG TAB PO SCH (08:30)
[2023-02-09] MEDS: MEMANTINE HCL 10 MG TABLET PO SCH ×2 (08:30→20:34)
[2023-02-09] MEDS: PREGABALIN 75 MG CAP PO SCH ×2 (08:30→20:34)
[2023-02-09] MEDS: PANTOPRAZOLE 40MG TABLET PO SCH (08:30)
[2023-02-09] MEDS: MONTELUKAST 10 MG TAB PO SCH (08:30)
[2023-02-09] MEDS: LOSARTAN POTASSIUM 50 MG TABLET PO SCH (08:30)
[2023-02-09] MEDS: LIOTHYRONINE SOD 5 MCG TAB PO SCH (08:30)
[2023-02-09] MEDS: HYDRALAZINE HCL 25 MG TABLET PO SCH ×2 (08:30→20:33)
[2023-02-09] MEDS: AMIODARONE HCL 200 MG TAB PO SCH (08:31)
[2023-02-09] MEDS ORDERED: POTASSIUM CL SA 10 MEQ TAB PO ONE (09:00)
[2023-02-09] MEDS: ursodioL 300 MG CAP PO SCH ×2 (09:00→20:34)
--- NOTE | 2023-02-09 11:07 | P.DS ---
Admission Date: 02/04/23 Discharge Date: 02/11/23 Disposition: TRANSFER TO SNF - REHAB Reason for Admission: CHF exacerbation Brief History of Present Illness: 82-year-old female with history of chronic diastolic congestive heart failure, atrial fibrillation status post Watchman procedure, hypertension, hyperlipidemia presents to the emergency department with chief complaint of shortness of breath. She was recently admitted on 01/12/2023 and subsequently discharged on 01/20/[address] Solis for recurrent urinary tract infection. She was treated with IV meropenem which she finished approximately 1 week ago. She was evaluated in the emergency department found to have a CHF exacerbation, BNP is elevated chest x-ray shows concern for pulmonary edema she is requiring nasal cannula oxygen at this time maintain saturations greater than 90%. Patient admi tted for further management. Hospital Course: Acute on Chronic Decompensated Diastolic Congestive Heart Failure with Preserved Ejection Fraction Hypertensive Urgency -Seen by cardiology - Chest x-ray = "findings suggestive of pulmonary edema, possibly of cardiogenic origin." - Transthoracic echocardiogram (01/02/2021) = "normal left ventricular ejection fraction 60-65%. mild mitral, tricuspid and pulmonary regurgitation. moderate tricuspid regurgitation. left atrial enlargement." -Repeat echo shows normal EF, moderate aortic stenosis. -Patient treated with IV Lasix and transitioned to oral Lasix - Continue home hydralazine, losartan - Held beta-kevon given borderline bradycardia Chronic Atrial Fibrillation s/p Watchman Device - Continued home aspirin, amiodarone Chronic Kidney Disease Stage III -Serum creatinine was overall stable with diuresis Hypothyroidism - Continued home levothyroxine, liothyronine Seasonal Allergies - Continued home montelukast Neuropathy - Continued home pregabalin Gastroesophageal Reflux Disease - Continued home pantoprazole Impaired mobility -Patient received PT. -Disposition to SNF to continue PT. Vital Signs/Physical Exam: Temp Pulse Resp BP Pulse Ox 98 F 52 100 H 150/60 H 52 L 02/09/23 08:00 02/09/23 08:00 02/09/23 08:00 02/09/23 08:00 02/09/23 08:00 General: Alert, In no apparent distress, Oriented x3 HEENT: Mucous membr. moist/pink Neck: JVD not distended Respiratory: Normal air movement, Other (Mild bibasilar crackles) Cardiovascular: No edema, Regular rate/rhythm, Normal S1 S2 Gastrointestinal: Soft and benign, Non-distended Musculoskeletal: No swelling Integumentary: No cyanosis Neurological: Normal strength at 5/5 x4 extr Laboratory Data at Discharge: WBC 7.90 thou/uL (4.3-10.9) 02/08/23 06:25 Hgb 10.4 g/dL (12.0-15.0) L D 02/08/23 06:25 Hct 31.3 % (36.0-45.0) L 02/08/23 06:25 Plt Count 127 thou/uL (152-406) L 02/08/23 06:25 Sodium 138 mEq/L (136-145) 02/08/23 06:25 Potassium 3.6 mEq/L (3.5-5.1) 02/08/23 13:44 BUN 37 mg/dL (7-18) H 02/08/23 06:25 Creatinine 1.37 mg/dL (0.55-1.02) H 02/08/23 06:25 Glucose 80 mg/dL (74-106) 02/08/23 06:25 Magnesium 2.1 mg/dL (1.6-2.4) 02/07/23 06:29 Total Bilirubin 0.5 mg/dL (0.2-1.0) 02/04/23 20:25 AST 14 U/L (15-37) L 02/04/23 20:25 ALT 19 U/L (13-56) 02/04/23 20:25 Alkaline Phosphatase 98 U/L (45-117) 02/04/23 20:25 Home Medications: Liothyronine Sodium [Cytomel] 5 mcg PO DAILY 01/01/21 ursodioL [Ursodiol] 300 mg PO BID 01/01/21 Pregabalin [Lyrica*] 150 mg PO BID 02/19/21 Levothyroxine [Synthroid*] 112 mcg PO [id number] 05/25/22 Rosuvastatin [Crestor*] 5 mg PO BEDTIME 05/25/22 Losartan Potassium 100 mg PO DAILY #90 tab 05/28/22 Potassium Chloride 20 meq PO BID 08/11/22 Amiodarone HCl [Cordarone*] 1 tab PO DAILY 12/30/22 Aspirin [Aspirin EC] 1 tab PO DAILY 12/30/22 Magnesium Citrate and Oxide [Magnesium] 1 cap PO BID 12/30/22 Memantine HCl 1 tab PO BID 12/30/22 Methenamine Hippurate 1 tab PO BID 12/30/22 Montelukast [Singulair*] 1 tab PO DAILY 12/30/22 Guaif/Dm [Robitussin Dm*] 10 ml PO Q6H PRN 01/11/23 levETIRAcetam [Keppra*] 250 mg PO BID tab 01/11/23 Pantoprazole [Protonix Tab*] 40 mg PO DAILY tab 01/20/23 traMADol HCL [Ultram*] 50 mg PO Q6H PRN tab 01/20/23 Acetaminophen 650 mg PO Q6HR PRN 02/05/23 Albuterol Sulfate [Albuterol Sulfate 0.083% Neb Soln] 1 dose IH TID 02/05/23 Ascorbic Acid/Ascorbate Sodium [Vitamin C 500 mg Tablet Chew] 500 mg PO DAILY 02/05/23 Hydralazine [Apresoline*] 25 mg PO BID 02/05/23 Saccharomyces Boulardii 250 mg PO DAILY 02/05/23 Torsemide 10 mg PO DAILY #30 tab 02/11/23 New Medications: Torsemide 10 mg PO DAILY #30 tab Diet: AHA Followup: Wilfred Hilliard MD [ASSOCIATE-ACTIVE - CAN ADMIT] - 1-2 Weeks (neurologist- call to schedule an appointment) Time spent managing pt's care (in minutes): 36
--- NOTE | 2023-02-09 16:09 | RAD REPORT ---
EXAM DESCRIPTION: US - Lower Extremity Arterial Bilat - 02/09/2023 3:34 pm CLINICAL HISTORY: Leg pain COMPARISON: None FINDINGS: The common femoral, superficial femoral and popliteal arteries bilaterally demonstrate tri phasic waveforms The posterior tibial and dorsalis pedis arteries demonstrate triphasic waveforms bilaterally. IMPRESSION: No flow limiting arterial stenosis identified within either lower extremity.
[2023-02-09] MEDS: TRAMADOL HCL 50 MG TAB PO PRN (16:44)
--- NOTE | 2023-02-09 17:32 | P.PN ---
Subjective Date of Service: 02/09/23 Chief Complaint: CHF exacerbation Patient is complaining of low back pain and weakness in both legs. Noted she has a history of peripheral neuropathy She states her shortness of breath is better. She is currently tolerating room air. Physical Examination - Vital Signs Temperature: 97.6 F Blood Pressure: 133/53 Pulse: 53 Respirations: 20 Pulse Ox (%): 100 Assessment And Plan - Plan Physical Exam General: Alert, In no apparent distress, Oriented x3 Neck: No JVD elevation. Respiratory: Faint bibasilar crackles. Cardiovascular: Regular rate/rhythm, No murmurs, Edema improved. Gastrointestinal: Soft, Non-distended, No tenderness, No rebound, No guarding Integumentary: No rashes Neurological: Normal speech, Normal affect Acute on Chronic Decompensated Diastolic Congestive Heart Failure with Preserved Ejection Fraction Hypertensive Urgency -Seen by cardiology - Chest x-ray = "findings suggestive of pulmonary edema, possibly of cardiogenic origin." - Transthoracic echocardiogram (01/02/2021) = "normal left ventricular ejection fraction 60-65%. mild mitral, tricuspid and pulmonary regurgitation. moderate tricuspid regurgitation. left atrial enlargement." -Repeat echo shows normal EF, moderate aortic stenosis. -Status post IV Lasix. Transitioned to oral Lasix. - Continue home hydralazine, losartan - No beta-kevon given borderline bradycardia Chronic Atrial Fibrillation s/p Watchman Device - Continue home aspirin, amiodarone Chronic Kidney Disease Stage III -Slight increase in creatinine from yesterday -Status post IV Lasix. -Patient is currently on oral Lasix. - Monitor creatinine and urine output Hypothyroidism - Continue home levothyroxine, liothyronine Seasonal Allergies - Continue home montelukast Neuropathy Patient is complaining of low back pain and increased bilateral diffuse. Obtain lumbar spine MRI Continue home pregabalin Neurology consulted. Gastroesophageal Reflux Disease - Continue home pantoprazole DVT prophylaxis: Heparin SQ. Impaired mobility -Continue PT.
[2023-02-09] MEDS ORDERED: MORPHINE 2 MG/ML SYR IV ONE (19:59)
[2023-02-09] MEDS: DIPHENHYDRAMINE 25 MG TAB/CAP PO SCH (20:34)
[2023-02-09] MEDS: ACETAMINOPHEN 500 MG TAB PO PRN (20:34)
[2023-02-09] MEDS: ROSUVASTATIN 5 MG TABLET PO SCH (20:35)
--- NOTE | 2023-02-09 22:44 | PN ---
Date of Progress Note: 02/09/2023 Subjective: Seen by bedside. She is feeling better, getting stronger and out of the bed. Review of Systems: No chest pain or shortness of breath. Generally is weak. No nausea, vomiting, diarrhea. No abdomin al pain. No history of urinary urgency. All other systems reviewed and they are negative. Physical Examination: Vital Signs: Reviewed. Head and Neck: Pupils are equal, reactive to light. Intact eye movements. No JVD. No cervical lym phadenopathy. Neck: Supple. Thyroid is not enlarged. Lungs: Clear to auscultation bilaterally. No rhonchi, wheezing, or crackles. No accessory muscle u se. Heart: Regular rate and rhythm with aortic systolic murmur. Abdomen: Soft, nontender. Bowel sounds positive. No organomegaly. No masses or hernia. No rigidi ty or rebound. Extremities: No clubbing or cyanosis. Trace edema. Skin: No rash. Neurologic: Alert, awake, oriented x3. No acute focal deficits appreciated. Investigations: BUN 37, creatinine 1.37. Troponins are negative and hemoglobin 10.4. Assessment/recommendations: 1.Acute on chronic diastolic heart failure. Appears to be euvolemic. Continue oral diuretics and l ess strict low-salt diet, discussed with the patient and encouraged. Patient can be released from Ca rdiology standpoint. I recommend inpatient rehab and follow up as an outpatient post discharge. 2.Pain to lower extremities. I did obtain a Doppler and there was no significant peripheral vascula r disease. Likely, this is neurological pain from radiculopathy. Recommend that she be evaluated by pipe recovery specialist. 3.Chronic renal failure, stable. Continue to monitor. SR/MODL Voice ID: [id number] Report ID: [id number]
[2023-02-10] MEDS: LEVOTHYROXINE SOD 0.112 MG TAB PO SCH (06:09)
[2023-02-10 07:14] LABS: Absolute Lymphocytes (CBC) 0.7 K/uL (0.7-4.9); Hematocrit 28.8 % (36.0-45.0); MCV 87.5 fL (80-100); MPV 9.9 fL (7.6-11.3); RBC Red Blood Cell Count 3.29 M/uL (3.86-4.86)
[2023-02-10] MEDS: ALBUTEROL 2.5 MG/3 ML NEB SOL IH SCH ×3 (07:35→19:50)
[2023-02-10 07:43] LABS: Potassium 4.5 mEq/L (3.5-5.1)
[2023-02-10] MEDS: AMIODARONE HCL 200 MG TAB PO SCH (09:00)
[2023-02-10] MEDS: HEPARIN 5000 UNIT/ML 1 ML VIAL SQ SCH ×2 (09:30→20:50)
[2023-02-10] MEDS: PREGABALIN 75 MG CAP PO SCH ×2 (09:31→20:49)
[2023-02-10] MEDS: ASPIRIN EC 81 MG TAB PO SCH (09:32)
[2023-02-10] MEDS: MONTELUKAST 10 MG TAB PO SCH (09:32)
[2023-02-10] MEDS: LIOTHYRONINE SOD 5 MCG TAB PO SCH (09:32)
[2023-02-10] MEDS: LOSARTAN POTASSIUM 50 MG TABLET PO SCH (09:32)
[2023-02-10] MEDS: levETIRAcetam 500 MG TAB PO SCH ×2 (09:32→20:49)
[2023-02-10] MEDS: PANTOPRAZOLE 40MG TABLET PO SCH (09:32)
[2023-02-10] MEDS: ursodioL 300 MG CAP PO SCH ×2 (09:32→20:49)
[2023-02-10] MEDS: MEMANTINE HCL 10 MG TABLET PO SCH ×2 (09:32→20:48)
[2023-02-10] MEDS: HYDRALAZINE HCL 25 MG TABLET PO SCH ×2 (09:33→20:51)
--- NOTE | 2023-02-10 09:44 | RAD REPORT ---
EXAM DESCRIPTION: MRI - Lumbar Spine Socrates Oseguera - 02/10/2023 8:49 am CLINICAL HISTORY: Bilateral leg weakness and back pain COMPARISON: No comparisons TECHNIQUE: Multiplanar multisequence MRI of the lumbar spine performed, without intravenous gadolini um contrast. FINDINGS: Preserved lumbar lordosis, with grade 1 anterolisthesis of L4 over L5, measuring [address] Vertebral body heights are well maintained. Multilevel Schmorl's node formation. No suspicious marrow signal. No paraspinal masses or edema. Conus terminates at the appropriate level. Cauda equina roots are unremarkable, with no clumping or t hickening. T12-L1: No significant findings. L1-L2: Mild posterior disc bulge. No significant canal or foraminal stenosis. L2-L3: Disc height loss with circumferential disc bulge. Mild effacement of the ventral CSF space. Ca nal is otherwise patent. Bilateral mild neural foraminal narrowing. L3-L4 level: Circumferential mild disc bulge. Advanced bilateral facet arthropathy with trace effusio ns and pronounced ligamentum flavum buckling. Findings contribute for up to moderate central canal st enosis with asymmetric right lateral recess narrowing. Right moderate and left mild neural foraminal narrowing. L4-L5 level: Circumferential disc bulge. Advanced bilateral facet arthropathy with ligamentum flavum buckling, facet effusions, and a small right extrinsic synovial cyst. Moderate central canal stenosis with asymmetric right lateral recess narrowing. Bilateral [id number] neural foraminal narrowin g. L5-S1 level: Mild circumferential disc bulge. Moderate to advanced facet arthropathy. No significant canal stenosis. Minimal bilateral neural foraminal narrowing. Small T2 hyperintense cortical renal lesions bilaterally suggestive of cysts, not well characterized . IMPRESSION: No acute findings. Multilevel lumbar spine degenerative changes as above, amounting to moderate central canal stenosis a t L3-4 and L4-5 levels. Variable degrees of neural foraminal narrowing, up to moderate bilaterally at L4-5 and on the right at L3-4.
--- NOTE | 2023-02-10 18:55 | P.PN ---
Subjective Date of Service: 02/10/23 Chief Complaint: CHF exacerbation Patient has no new complaint except increased pain in her lower extremities She states her shortness of breath is better. She has been tolerating room air. Physical Examination - Vital Signs Temperature: 97.0 F Blood Pressure: 116/40 Pulse: 50 Respirations: 16 Pulse Ox (%): 99 Assessment And Plan - Plan Physical Exam General: Alert, In no apparent distress, Oriented x3 Neck: No JVD elevation. Respiratory: Faint bibasilar crackles. Cardiovascular: Regular rate/rhythm, No murmurs, Edema improved. Gastrointestinal: Soft, Non-distended, No tenderness, No rebound, No guarding Integumentary: No rashes Neurological: Normal speech, Normal affect Acute on Chronic Decompensated Diastolic Congestive Heart Failure with Preserved Ejection Fraction Hypertensive Urgency -Cardiology-Dr. Osborn is following. - Chest x-ray = "findings suggestive of pulmonary edema, possibly of cardiogenic origin." - Transthoracic echocardiogram (01/02/2021) = "normal left ventricular ejection fraction 60-65%. mild mitral, tricuspid and pulmonary regurgitation. moderate tricuspid regurgitation. left atrial enlargement." -Repeat echo shows normal EF, moderate aortic stenosis. -Status post IV Lasix. Transitioned to oral Lasix. - Continue home hydralazine, losartan - No beta-kevon given borderline bradycardia Chronic Atrial Fibrillation s/p Watchman Device - Continue home aspirin, amiodarone Chronic Kidney Disease Stage III -Serum creatinine increased. -Status post IV Lasix. -Hold Lasix today - Monitor creatinine and urine output Hypothyroidism - Continue home levothyroxine, liothyronine Seasonal Allergies - Continue home montelukast Neuropathy Patient is complaining of low back pain and increased bilateral diffuse. Lumbar spine MRI shows degenerative vertebral disease and foraminal stenosis, no acute disease. Continue home pregabalin Awaiting neurology input. Continue PT Gastroesophageal Reflux Disease - Continue home pantoprazole DVT prophylaxis: Heparin SQ. Impaired mobility -Continue PT.
--- NOTE | 2023-02-10 20:37 | PN ---
Date of Progress Note: 02/10/2023 Subjective: Seen by bedside. No shortness of breath. Review of Systems: No chest pain, shortness of breath, orthopnea, or cough. No nausea, vomiting, or diarrhea. All othe r systems reviewed are negative. Physical Examination: Vital Signs: Reviewed. Head and Neck: Pupils are equal, reactive to light. Intact eye movements. No JVD. No cervical lym phadenopathy. Neck is supple. Thyroid is not enlarged. Lungs: Clear to auscultation bilaterally. No rhonchi, wheezing, or crackles. No accessory muscle u se. Heart: Regular rate and rhythm with aortic systolic murmur. Abdomen: Soft, nontender. Bowel sounds positive. No organomegaly. No masses or hernia. No rigidi ty or rebound. Extremities: No edema, clubbing, or cyanosis. Intact pulses. Skin: No rashes. Neurologic: Alert, awake, oriented x3. No acute focal deficits appreciated. Investigations: BUN 48, creatinine 0.92. Assessment/recommendations: 1.Acute on chronic diastolic heart failure exacerbation. She is euvolemic, but creatinine jumped si gnificantly. I stopped the Lasix. We will monitor. She might need some hydration for short period of time. Re-assess with basic metabolic panel tomorrow and adjust treatment accordingly. She will n eed to be put on oral Lasix before discharge. 2.Atrial fibrillation. She is in sinus. Continue amiodarone and patient is postappendage closure. Still continue aspirin. 3.Acute on chronic renal failure, overdiuresed. Hold Lasix and re-assess. SR/MODL Voice ID: [id number] Report ID: [id number]
[2023-02-10] MEDS: DIPHENHYDRAMINE 25 MG TAB/CAP PO SCH (20:48)
[2023-02-10] MEDS: NYSTATIN PWDR 100000 UNIT/GM TOP SCH (20:51)
[2023-02-10] MEDS: ROSUVASTATIN 5 MG TABLET PO SCH (20:54)
[2023-02-10] MEDS: ACETAMINOPHEN 500 MG TAB PO PRN (21:01)
[2023-02-10] MEDS: TRAMADOL HCL 50 MG TAB PO PRN (21:02)
[2023-02-11] MEDS: LEVOTHYROXINE SOD 0.112 MG TAB PO SCH (06:23)
[2023-02-11] MEDS: ALBUTEROL 2.5 MG/3 ML NEB SOL IH SCH (08:00)
[2023-02-11 08:25] VITALS: O2SAT 99
[2023-02-11] MEDS: LOSARTAN POTASSIUM 50 MG TABLET PO SCH (08:53)
[2023-02-11] MEDS: PREGABALIN 75 MG CAP PO SCH (08:53)
[2023-02-11] MEDS: ASPIRIN EC 81 MG TAB PO SCH (08:53)
[2023-02-11] MEDS: MONTELUKAST 10 MG TAB PO SCH (08:53)
[2023-02-11] MEDS: PANTOPRAZOLE 40MG TABLET PO SCH (08:53)
[2023-02-11] MEDS: LIOTHYRONINE SOD 5 MCG TAB PO SCH (08:54)
[2023-02-11] MEDS: MEMANTINE HCL 10 MG TABLET PO SCH (08:54)
[2023-02-11] MEDS: levETIRAcetam 500 MG TAB PO SCH (08:54)
[2023-02-11] MEDS: ursodioL 300 MG CAP PO SCH (08:54)
[2023-02-11] MEDS: HEPARIN 5000 UNIT/ML 1 ML VIAL SQ SCH (08:54)
[2023-02-11] MEDS: NYSTATIN PWDR 100000 UNIT/GM TOP SCH (08:55)
[2023-02-11] MEDS: AMIODARONE HCL 200 MG TAB PO SCH (08:55)
[2023-02-11] MEDS: HYDRALAZINE HCL 25 MG TABLET PO SCH (08:55)
[2023-02-11 12:08] VITALS: BP 119/55; TEMP 97.3
== END 2023-02-11 14:00 | DRG 291 ==
LOC: ER 19:48 → ERHOLD 22:20 → 4TH 22:43
PROVIDERS: ADMIT Internal Medicine; ATTEND Internal Medicine
DX: I13.0 Hypertensive heart and chronic kidney disease with heart failure and stage 1 through stage 4 chronic kidney disease, or unspecified chronic kidney disease (principal); I50.33 Acute on chronic diastolic (congestive) heart failure; N17.9 Acute kidney failure, unspecified; N18.30 Chronic kidney disease, stage 3 unspecified; E03.9 Hypothyroidism, unspecified; J30.2 Other seasonal allergic rhinitis; I48.0 Paroxysmal atrial fibrillation; E78.5 Hyperlipidemia, unspecified; G62.9 Polyneuropathy, unspecified; I16.0 Hypertensive urgency; K21.9 Gastro-esophageal reflux disease without esophagitis; Z90.49 Acquired absence of other specified parts of digestive tract; Z79.02 Long term (current) use of antithrombotics/antiplatelets; Z79.01 Long term (current) use of anticoagulants; Z90.710 Acquired absence of both cervix and uterus; Z79.899 Other long term (current) drug therapy; Z79.82 Long term (current) use of aspirin; Z79.890 Hormone replacement therapy; Z96.611 Presence of right artificial shoulder joint; Z96.653 Presence of artificial knee joint, bilateral
CPT/HCPCS: 36415; 71045; 72148; 80048; 80076; 83735; 83880; 84132; 84484; 85025; 93005; 93306; 93925; 94640; 96374; 97110; 97116; 97161; 97530; 99285; J1644; J1940; J2270; J3475; J7613

== ENCOUNTER 2023-04-24 18:59 | Inpatient (IN) | payer BC ==
--- OUTSIDE RECORDS SUMMARY | 2023-04-24 19:05 | XMS REPORT | Continuity of Care Document ---
:1940 Author Organization [facility] t Address [address] [place] [address] Care Team Providers Name Role Phone [phone] Primary Care Physician Unavailable SYSTEM, PROVIDER NOT IN Attending Clinician Unavailable NETTIE NAJERA Attending Clinician Unavailable NETTIE NAJERA Attending Clinician Unavailable Doctor Unassigned, [place] Attending Clinician Unavailable MILDRED BHANDARI Attending Clinician Unavailable ALIE SHELL Attending Clinician Unavailable THELMA HEATH Attending Clinician Unavailable JEANINE LOWERY Attending Clinician Unavailable Payers Payer Name Policy Type Policy Number Effective Date Expiration Date S ource [place] [facility] [id number] 2022 [place] 00:00:[place] [id number] 2022 [place] 00:00:00 [place] [id number] 2014 00:00:00 MEDICARE PART A [id number] 2004 AND B 00:00:00 Problems Condition Condition Condition Status Onset Resolution Last Treating Co mments Source Name Details Category Date Date Treatment Clinician Date CHF CHF Disease Active Univers (congestiv (congestiv 01-17 it y of e heart e heart 00:00: [place] failure), failure), 00 Medi anna NYHA class NYHA class Br anch I, acute I, acute on on chronic, chronic, combined combined Persistent Persistent Disease Active Overview : Univers atrial atrial 01-17 Formattin ity of fibrillati fibrillati 00:00: g of this [place] on note Medical might be Branch different from the original. Formattin g of this note might be different from the original. Added automatic ally from request for surgery [id number] Malignant Malignant Disease Active Uni vers melanoma melanoma 01-01 ity of of left of left 00:00: [place] [facility] 00 Medical limb, limb, Branch including including shoulder shoulder Allergies, Adverse Reactions, Alerts Allergy Allergy Status Severity Reaction(s) Onset Inactive Treating Comm ents Source Name Type Date Date Clinician INDOMETH DRUG Active Other MD ACIN INGREDI [...] ACIN INGREDI 3-11 Anderso 00:00: n 00 NO KNOWN Drug Active Univers ALLERGIE Class ity of S [facility] Social History Social Habit Start Date Stop Date Quantity Comments Source History of tobacco Passive smoker Un iversity of use [facility] Gender identity Universit y of [facility] Sexual orientation Univer sity [facility] [place] History of Social 2019-02-08 2019-02-08 Univers ity of function 00:00:00 00:00:00 [facility] Alcohol intake 2018-11-30 2018-11-30 Current University of 00:00:00 00:00:00 non-drinker of [facility] [place] [facility] alcohol Branch (finding) Tobacco use and 2018-10-19 2018-10-19 Smokeless Universit y of exposure 00:00:00 00:00:00 tobacco non-user [facility] dical [place] Sex Assigned At [birth year] Universit y of 00:00:00 00:00:00 [facility] Smoking Status Start Date Stop Date Source Never smoked tobacco [facility] Medications Ordered Filled Start Stop Current Ordering Indication Dosage Frequency Signature Comments Components Source Medication Medication Date Date Medication? Clinician (SIG) Name Name Nitrofurant 2022- Yes [id number] 100mg Take 1 Univers oin&Nit. 04-05 capsule by ity of [place] 00:00: 04:59 mouth in [facility] (MACROBID) 00 :00 the Medical 100 mg morning Branch capsule and 1 capsule in the evening. Do all this for 7 days. Nitrofurant 2022-0 2022- Yes [id number] 100mg Take 1 Univers oin&Nit. 04-05 capsule by ity of Macrocryst 00:00: 04:59 mouth in [facility] (MACROBID) 00 :00 the Medical 100 mg morning Branch capsule and 1 capsule in the evening. Do all this for 7 days. amoxicillin 2022-0 2022- Yes [id number] 1{tbl} Take 1 Univers -clavulanat 04-05 tablet by it y of e 00:00: 04:59 mouth in [place] (AUGMENTIN) 00 :00 the Medical 875-125 mg morning Branch per tablet and 1 tablet in the evening. Do all this for 7 days. Nitrofurant 2022-0 2022- Yes [id number] 100mg Take 1 Univers oin&Nit. 04-05 capsule by ity of Macrocryst 00:00: 04:59 mouth in [facility] (MACROBID) 00 :00 the Medical 100 mg morning Branch capsule and 1 capsule in the evening. Do all this for 7 days. amoxicillin 2022-0 2022- Yes [id number] 1{tbl} Take 1 Univers -clavulanat 04-05 tablet by it y of e 00:00: 04:59 mouth in [place] (AUGMENTIN) 00 :00 the Medical 875-125 mg morning Branch per tablet and 1 tablet in the evening. Do all this for 7 days. RABEprazole 2023-0 Yes 20mg Take 1 Univ ers 20 mg 8-30 tablet by ity of tablet 10:10: mouth in [place] 19 the Medical morning. Branch pregabalin 2023-0 Yes 150mg Take 1 Univ ers (LYRICA) 8-30 capsule by ity o f 150 mg 10:10: mouth in [place] capsule 19 the Medical morning Branch and 1 capsule in the evening. magnesium 2023-0 Yes 250mg Take 250 Uni vers citrate and 8-30 mg by ity of oxide 10:10: mouth in [place] (MAGNESIUM 19 the Medical CITRATE,MAG morning Branc h OXIDE) 250 and 250 mg mg Cap in the evening. ursodioL 2023-0 Yes 300mg Take 1 Univer s 300 mg 8-30 capsule by ity of capsule 10:10: mouth in [place] [address] the Medical morning Branch and 1 capsule in the evening. hydrALAZINE 2023-0 Yes 100mg Take 1 Uni vers 100 mg 8-30 tablet by ity of tablet 10:10: mouth in [place] [address] the Medical morning Branch and 1 tablet in the evening. RABEprazole 2023-0 Yes 20mg Take 1 Univ ers 20 mg 8-30 tablet by ity of tablet 10:10: mouth in [place] [address] [facility] morning. Branch pregabalin 2023-0 Yes 150mg Take 1 Univ ers (LYRICA) 8-30 capsule by ity o f 150 mg 10:10: mouth in [place] capsule the [facility] morning Branch and 1 capsule in the evening. magnesium 2023-0 Yes 250mg Take 250 Uni vers citrate and 8-30 mg by ity of oxide 10:10: mouth in [place] (MAGNESIUM 19 the Medical CITRATE,[facility] morning Branc h OXIDE) 250 and 250 mg mg Cap in the evening. ursodioL 2023-0 Yes 300mg Take 1 Univer s 300 mg 8-30 capsule by ity of capsule 10:10: mouth in [place] [address] [facility] morning [place] and 1 capsule in the evening. hydrALAZINE 2023-0 Yes 100mg Take 1 Uni vers 100 mg 8-30 tablet by ity of tablet 10:10: mouth in [place] [address] [facility] morning [place] and 1 tablet in the evening. RABEprazole 2023-0 Yes 20mg Take 1 Univ ers 20 mg 8-30 tablet by ity of tablet 10:10: mouth in [place] [address] [facility] morning. Branch pregabalin 2023-0 Yes 150mg Take 1 Univ ers (LYRICA) 8-30 capsule by ity o f 150 mg 10:10: mouth in [place] capsule the [facility] morning Branch and 1 capsule in the evening. magnesium 2023-0 Yes 250mg Take 250 Uni vers citrate and 8-30 mg by ity of oxide 10:10: mouth in [place] (MAGNESIUM 19 the Medical CITRATE,[facility] morning Branc h OXIDE) 250 and 250 mg mg Cap in the evening. ursodioL 2023-0 Yes 300mg Take 1 Univer s 300 mg 8-30 capsule by ity of capsule 10:10: mouth in [address] morning Branch and 1 capsule in the evening. hydrALAZINE 2023-0 Yes 100mg Take 1 Uni vers 100 mg 8-30 tablet by ity of tablet 10:10: mouth in [place] [address] [facility] morning [place] and 1 tablet in the evening. RABEprazole 2023-0 Yes 20mg Take 1 Univ ers 20 mg 8-30 tablet by ity of tablet 10:10: mouth in [place] [address] the [facility]. Branch pregabalin 2023-0 Yes 150mg Take 1 Univ ers (LYRICA) 8-30 capsule by ity o f 150 mg 10:10: mouth in [place] [address] the Medical morning Branch and 1 capsule in the evening. magnesium 2023-0 Yes 250mg Take 250 Uni vers citrate and 8-30 mg by ity of oxide 10:10: mouth in [place] (MAGNESIUM 19 the Medical CITRATE,[facility] morning Branc h OXIDE) 250 and 250 mg mg Cap in the evening. ursodioL 2023-0 Yes 300mg Take 1 Univer s 300 mg 8-30 capsule by ity of capsule 10:10: mouth in [address] morning [place] and 1 capsule in the evening. hydrALAZINE 2023-0 Yes 100mg Take 1 Uni vers 100 mg 8-30 tablet by ity of tablet 10:10: mouth in [place] [address] [facility] morning [place] and 1 tablet in the evening. RABEprazole 2023-0 Yes 20mg Take 1 Univ ers 20 mg 8-30 tablet by ity of tablet 10:10: mouth in [place] [address] the [facility]. Branch pregabalin 2023-0 Yes 150mg Take 1 Univ ers (LYRICA) 8-30 capsule by ity o f 150 mg 10:10: mouth in [place] [address] [address] [facility] morning Branch and 1 capsule in the evening. magnesium 2023-0 Yes 250mg Take 250 Uni vers citrate and 8-30 mg by ity of oxide 10:10: mouth in [place] (MAGNESIUM 19 the Medical CITRATE,[facility] morning Branc h OXIDE) 250 and 250 mg mg Cap in the evening. ursodioL 2023-0 Yes 300mg Take 1 Univer s 300 mg 8-30 capsule by ity of capsule 10:10: mouth in [address] morning [place] and 1 capsule in the evening. hydrALAZINE 2023-0 Yes 100mg Take 1 Uni vers 100 mg 8-30 tablet by ity of tablet 10:10: mouth in [place] [address] [facility] morning Branch and 1 tablet in the evening. RABEprazole 2023-0 Yes 20mg Take 1 Univ ers 20 mg 8-30 tablet by ity of tablet 10:10: mouth in [place] [address] [facility] morning. Branch pregabalin 2023-0 Yes 150mg Take 1 Univ ers (LYRICA) 8-30 capsule by ity o f 150 mg 10:10: mouth in [place] [address] [address] [facility] morning Branch and 1 capsule in the evening. magnesium 2023-0 Yes 250mg Take 250 Uni vers citrate and 8-30 mg by ity of oxide 10:10: mouth in [place] (MAGNESIUM the [facility] CITRATE,[facility] morning Branc h OXIDE) 250 and 250 mg mg Cap in the evening. ursodioL 2023-0 Yes 300mg Take 1 Univer s 300 mg 8-30 capsule by ity of capsule 10:10: mouth in [address] morning [place] and 1 capsule in the evening. hydrALAZINE 2023-0 Yes 100mg Take 1 Uni vers 100 mg 8-30 tablet by ity of tablet 10:10: mouth in [address] morning [place] and 1 tablet in the evening. furosemide 2023-0 2023- No 80mg Take 80 mg Univers 80 mg 8-30 08-30 by mouth ity of tablet 10:08: 00:00 daily. [place] 31 :00 Medical Branch furosemide 2023-0 2023- No 80mg Take 80 mg Univers 80 mg 8-30 08-30 by mouth ity of tablet 10:08: 00:00 daily. [place] 31 :00 Medical Branch furosemide 2023-0 2023- No 80mg Take 80 mg Univers 80 mg 8-30 08-30 by mouth ity of tablet 10:08: 00:00 daily. [place] 31 :00 Medical Branch furosemide 2023-0 2023- No 80mg Take 80 mg Univers 80 mg 8-30 08-30 by mouth ity of tablet 10:08: 00:00 daily. [place] 31 :00 Medical Branch Magnesium 2023-0 2023- No Take by Univ ers Oxide 500 8-30 08-30 mouth 2 ity of mg Cap 10:07: 00:00 (two) [place] 50 :00 times Medical daily. Branch Magnesium 2023-0 2023- No Take by Univ ers Oxide 500 8-30 08-30 mouth 2 ity of mg Cap 10:07: 00:00 (two) [place] 50 :00 times Medical daily. Branch Magnesium 2022- No Take by Univ ers Oxide 500 8-30 08-30 mouth 2 ity of mg Cap 10:07: 00:00 (two) [place] 50 :00 times Medical daily. Branch Magnesium 2022-0 2022- No Take by Univ ers Oxide 500 8-30 08-30 mouth 2 ity of mg Cap 10:07: 00:00 (two) [place] 50 :00 times Medical daily. Branch carvedilol 2022- No 12.5mg Take 12.5 Univers 12.5 mg 8-30 08-30 mg by ity of tablet 10:07: 00:00 mouth 2 [place] 28 :00 (two) Medical times [place] daily with meals. carvedilol 2022- No 12.5mg Take 12.5 Univers 12.5 mg 8-30 08-30 mg by ity of tablet 10:07: 00:00 mouth 2 [place] 28 :00 (two) Medical times [place] daily with meals. carvedilol 2022- No 12.5mg Take 12.5 Univers 12.5 mg 8-30 08-30 mg by ity of tablet 10:: 00:00 mouth 2 [place] 28 :00 (two) Medical times [place] daily with meals. carvedilol 2022- No 12.5mg Take 12.5 Univers 12.5 mg 8-30 08-30 mg by ity of tablet 10:: 00:00 mouth 2 [place] 28 :00 (two) Medical times [place] daily with meals. liothyronin 2022-0 Yes 5ug Take 1 Univ ers e 5 mcg 8-30 tablet by ity of tablet 09:14: mouth in [place] [address] the Medical morning. Branch rosuvastati 2022-0 Yes 5mg Take 1 Univ ers n 5 mg 8-30 tablet by ity of tablet 09:14: mouth in [place] [address] the Medical morning. Branch montelukast 2022-0 Yes 10mg Take 1 Univ ers 10 mg 8-30 tablet by ity of tablet 09:14: mouth in [place] [address] the Medical morning. Branch losartan 2022-0 Yes 100mg Take 1 Univer s 100 mg 8-30 tablet by ity of tablet 09:14: mouth in [place] [address] the Medical morning. Branch torsemide 2023-0 Yes 20mg Take 1 Univer s 20 mg 8-30 tablet by ity of tablet 09:14: mouth in [place] [address] the Medical morning. Branch liothyronin 2023-0 Yes 5ug Take 1 Univ ers e 5 mcg 8-30 tablet by ity of tablet 09:14: mouth in [place] [address] the Medical morning. Branch rosuvastati 2023-0 Yes 5mg Take 1 Univ ers n 5 mg 8-30 tablet by ity of tablet 09:14: mouth in [place] [address] the Medical morning. Branch montelukast 2023-0 Yes 10mg Take 1 Univ ers 10 mg 8-30 tablet by ity of tablet 09:14: mouth in [place] [address] the Medical morning. Branch losartan 2023-0 Yes 100mg Take 1 Univer s 100 mg 8-30 tablet by ity of tablet 09:14: mouth in [place] [address] the Medical morning. Branch torsemide 2023-0 Yes 20mg Take 1 Univer s 20 mg 8-30 tablet by ity of tablet 09:14: mouth in [place] [address] the Medical morning. Branch liothyronin 2023-0 Yes 5ug Take 1 Univ ers e 5 mcg 8-30 tablet by ity of tablet 09:14: mouth in [place] [address] the Medical morning. Branch rosuvastati 2023-0 Yes 5mg Take 1 Univ ers n 5 mg 8-30 tablet by ity of tablet 09:14: mouth in [place] [address] the Medical morning. Branch montelukast 2023-0 Yes 10mg Take 1 Univ ers 10 mg 8-30 tablet by ity of tablet 09:14: mouth in [place] [address] the Medical morning. Branch losartan 2023-0 Yes 100mg Take 1 Univer s 100 mg 8-30 tablet by ity of tablet 09:14: mouth in [place] [address] the Medical morning. Branch torsemide 2023-0 Yes 20mg Take 1 Univer s 20 mg 8-30 tablet by ity of tablet 09:14: mouth in [place] [address] the Medical morning. Branch liothyronin 2023-0 Yes 5ug Take 1 Univ ers e 5 mcg 8-30 tablet by ity of tablet 09:14: mouth in [place] [address] the Medical morning. Branch rosuvastati 2023-0 Yes 5mg Take 1 Univ ers n 5 mg 8-30 tablet by ity of tablet 09:14: mouth in [place] [address] the Medical morning. Branch montelukast 2023-0 Yes 10mg Take 1 Univ ers 10 mg 8-30 tablet by ity of tablet 09:14: mouth in [place] [address] the Medical morning. Branch losartan 2023-0 Yes 100mg Take 1 Univer s 100 mg 8-30 tablet by ity of tablet 09:14: mouth in [place] [address] the Medical morning. Branch torsemide 2023-0 Yes 20mg Take 1 Univer s 20 mg 8-30 tablet by ity of tablet 09:14: mouth in [place] [address] the Medical morning. Branch liothyronin 2023-0 Yes 5ug Take 1 Univ ers e 5 mcg 8-30 tablet by ity of tablet 09:14: mouth in [place] [address] the Medical morning. Branch rosuvastati 2023-0 Yes 5mg Take 1 Univ ers n 5 mg 8-30 tablet by ity of tablet 09:14: mouth in [place] [address] the Medical morning. Branch montelukast 2023-0 Yes 10mg Take 1 Univ ers 10 mg 8-30 tablet by ity of tablet 09:14: mouth in [place] [address] the Medical morning. Branch losartan 2023-0 Yes 100mg Take 1 Univer s 100 mg 8-30 tablet by ity of tablet 09:14: mouth in [place] [address] the Medical morning. Branch torsemide 2023-0 Yes 20mg Take 1 Univer s 20 mg 8-30 tablet by ity of tablet 09:14: mouth in [place] [address] the Medical morning. Branch liothyronin 2023-0 Yes 5ug Take 1 Univ ers e 5 mcg 8-30 tablet by ity of tablet 09:14: mouth in [place] [address] the Medical morning. Branch rosuvastati 2023-0 Yes 5mg Take 1 Univ ers n 5 mg 8-30 tablet by ity of tablet 09:14: mouth in [place] [address] the Medical morning. Branch montelukast 2023-0 Yes 10mg Take 1 Univ ers 10 mg 8-30 tablet by ity of tablet 09:14: mouth in [place] [address] the Medical morning. Branch losartan 2023-0 Yes 100mg Take 1 Univer s 100 mg 8-30 tablet by ity of tablet 09:14: mouth in [place] [address] the Medical morning. Branch torsemide 2023-0 Yes 20mg Take 1 Univer s 20 mg 8-30 tablet by ity of tablet 09:14: mouth in [place] 29 the Medical morning. Branch levothyroxi 2022-0 Yes 100ug Take 1 Uni vers ne 100 mcg 8-30 tablet by ity of tablet 09:11: mouth [place] 21 every Medical morning. Branch levothyroxi 2022-0 Yes 100ug Take 1 Uni vers ne 100 mcg 8-30 tablet by ity of tablet 09:11: mouth [place] 21 every Medical morning. Branch levothyroxi 2022-0 Yes 100ug Take 1 Uni vers ne 100 mcg 8-30 tablet by ity of tablet 09:11: mouth [place] 21 every Medical morning. Branch levothyroxi 2022-0 Yes 100ug Take 1 Uni vers ne 100 mcg 8-30 tablet by ity of tablet 09:11: mouth [place] 21 every Medical morning. Branch levothyroxi 2022-0 Yes 100ug Take 1 Uni vers ne 100 mcg 8-30 tablet by ity of tablet 09:11: mouth [place] 21 every Medical morning. Branch levothyroxi 2022-0 Yes 100ug Take 1 Uni vers ne 100 mcg 8-30 tablet by ity of tablet 09:11: mouth [place] 21 every Medical morning. Branch estradioL 2022-0 Yes [id number] Apply 1g Univers (ESTRACE) 8-30 vaginally ity o f 0.01 % (0.1 00:00: at bedtime [place] mg/gram) 00 every Medical vaginal night for Branch cream 2 weeks and then apply 1g vaginally at bedtime 3 times per week ( dn/ iday) estradioL 2022-0 Yes [id number] Apply 1g Univers (ESTRACE) 8-30 vaginally ity o f 0.01 % (0.1 00:00: at bedtime [place] mg/gram) 00 every Medical vaginal night for Branch cream 2 weeks and then apply 1g vaginally at bedtime 3 times per week ( dn/ iday) estradioL 2022-0 Yes [id number] Apply 1g Univers (ESTRACE) 8-30 vaginally ity o f 0.01 % (0.1 00:00: at bedtime [place] mg/gram) 00 every Medical vaginal night for Branch cream 2 weeks and then apply 1g vaginally at bedtime 3 times per week ( dn/ iday) estradioL 3-0 Yes [id number] Apply 1g Univers (ESTRACE) 8-30 vaginally ity o f 0.01 % (0.1 00:00: at bedtime [place] mg/gram) 00 every Medical vaginal night for Branch cream 2 weeks and then apply 1g vaginally at bedtime 3 times per week ( dn ida) estradioL 2022-0 Yes [id number] Apply 1g Univers (ESTRACE) 8-30 vaginally ity o f 0.01 % (0.1 00:00: at bedtime [place] mg/gram) 00 every Medical vaginal night for Branch cream 2 weeks and then apply 1g vaginally at bedtime 3 times per week ( ida) estradioL 2022-0 Yes [id number] Apply 1g Univers (ESTRACE) 8-30 vaginally ity o f 0.01 % (0.1 00:00: at bedtime [place] mg/gram) 00 every Medical vaginal night for Branch cream 2 weeks and then apply 1g vaginally at bedtime 3 times per week ( dn ida) amiodarone 3-0 Yes 200mg Take 1 Univ ers 200 mg 8-26 tablet by ity of tablet 00:00: mouth in [place] the morning. Branch amiodarone 3-0 Yes 200mg Take 1 Univ ers 200 mg 8-26 tablet by ity of tablet 00:00: mouth in [place] the morning. Branch amiodarone 3-0 Yes 200mg Take 1 Univ ers 200 mg 8-26 tablet by ity of tablet 00:00: mouth in [place] the morning. Branch amiodarone 3-0 Yes 200mg Take 1 Univ ers 200 mg 8-26 tablet by ity of tablet 00:00: mouth in [place] the morning. Branch amiodarone 2023-0 Yes 200mg Take 1 Univ ers 200 mg 8-26 tablet by ity of tablet 00:00: mouth in [place] the morning. Branch amiodarone 2023-0 Yes 200mg Take 1 Univ ers 200 mg 8-26 tablet by ity of tablet 00:00: mouth in [place] the morning. Branch memantine 5 2022-0 Yes 5mg Take 1 Univ ers mg tablet 7-28 tablet by ity o f 00:00: mouth in [place] 00 the Medical morning Branch and 1 tablet in the evening. memantine 5 2023-0 Yes 5mg Take 1 Univ ers mg tablet 7-28 tablet by ity o f 00:00: mouth in [place] 00 the Medical morning Branch and 1 tablet in the evening. memantine 5 2023-0 Yes 5mg Take 1 Univ ers mg tablet 7-28 tablet by ity o f 00:00: mouth in [place] 00 the Medical morning Branch and 1 tablet in the evening. memantine 5 2023-0 Yes 5mg Take 1 Univ ers mg tablet 7-28 tablet by ity o f 00:00: mouth in [place] 00 the Medical morning Branch and 1 tablet in the evening. memantine 5 2023-0 Yes 5mg Take 1 Univ ers mg tablet 7-28 tablet by ity o f 00:00: mouth in [place] 00 the Medical morning Branch and 1 tablet in the evening. memantine 5 2023-0 Yes 5mg Take 1 Univ ers mg tablet 7-28 tablet by ity o f 00:00: mouth in [place] 00 the Medical morning Branch and 1 tablet in the evening. methenamine 2023-0 Yes 1g Take 1 Univ ers 1 gram 6-09 tablet by ity of tablet 00:00: mouth in [place] 00 the Medical morning Branch and 1 tablet in the evening. methenamine 2023-0 Yes 1g Take 1 Univ ers 1 gram 6-09 tablet by ity of tablet 00:00: mouth in [place] 00 the Medical morning Branch and 1 tablet in the evening. methenamine 2023-0 Yes 1g Take 1 Univ ers 1 gram 6-09 tablet by ity of tablet 00:00: mouth in [place] 00 the Medical morning Branch and 1 tablet in the evening. methenamine 2023-0 Yes 1g Take 1 Univ ers 1 gram 6-09 tablet by ity of tablet 00:00: mouth in [place] 00 the Medical morning Branch and 1 tablet in the evening. methenamine 2023-0 Yes 1g Take 1 Univ ers 1 gram 6-09 tablet by ity of tablet 00:00: mouth in [place] 00 the Medical morning Branch and 1 tablet in the evening. methenamine 2023-0 Yes 1g Take 1 Univ ers 1 gram 6-09 tablet by ity of tablet 00:00: mouth in [place] 00 the Medical morning Branch and 1 tablet in the evening. cranberry 2019-0 Yes Take by [facility] fruit 3-21 mouth 2 ity of extract 14:09: (two) [place] (CRANBERRY 46 times Medical EXTRACT) daily. Branch 300 mg Tab L.acid/L.ca 2019-0 Yes Take by Uni vers sei/B.bif/B 3-21 mouth ity of .zaida/FOS 14:09: daily. [place] (PROBIOTIC 46 Medical BLEND ORAL) Branch cranberry 2019-0 Yes Take by Unive rs fruit 3-21 mouth 2 ity of extract 14:09: (two) [place] (CRANBERRY 46 times Medical EXTRACT) daily. Branch 300 mg Tab L.acid/L.ca 2019-0 Yes Take by Uni vers sei/B.bif/B 3-21 mouth ity of .zaida/FOS 14:09: daily. [place] (PROBIOTIC 46 Medical BLEND ORAL) Branch cranberry 2018-0 Yes Take by Unive rs fruit 3-21 mouth 2 ity of extract 14:09: (two) [place] (CRANBERRY 46 times Medical EXTRACT) daily. Branch 300 mg Tab L.acid/L.ca 2018-0 Yes Take by Uni vers sei/B.bif/B 3-21 mouth ity of .zaida/FOS 14:09: daily. [place] (PROBIOTIC 46 Medical BLEND ORAL) Branch carvedilol 2019-0 Yes 12.5mg Take 12.5 Univers 12.5 mg 3-21 mg by ity of tablet 14:09: mouth 2 [place] [address] (two) Medical times [place] daily with meals. pregabalin 2019-0 Yes 150mg Take 150 Un elisabeth (LYRICA) 3-21 mg by ity of 150 mg 14:09: mouth 2 [place] capsule 46 (two) Medical times Branch daily. cranberry 2019-0 Yes Take by [facility] rs fruit 3-21 mouth 2 ity of extract 14:09: (two) [place] (CRANBERRY 46 times Medical EXTRACT) daily. Branch 300 mg Tab L.acid/L.ca 2019-0 Yes Take by Uni vers sei/B.bif/B 3-21 mouth ity of .zaida/FOS 14:09: daily. [place] (PROBIOTIC 46 Medical BLEND ORAL) Branch Magnesium 2019-0 Yes Take by Unive rs Oxide 500 3-21 mouth 2 ity of mg Cap 14:09: (two) [place] [address] times Medical daily. Branch cranberry Yes Take by Unive rs fruit 3-21 mouth 2 ity of extract 14:09: (two) [place] (CRANBERRY 46 times Medical EXTRACT) daily. Branch 300 mg Tab L.acid/L.ca 2018-0 Yes Take by Uni vers sei/B.bif/B 3-21 mouth ity of .zaida/FOS 14:09: daily. [place] (PROBIOTIC 46 Medical BLEND ORAL) Branch cranberry Yes Take by Unive rs fruit 3-21 mouth 2 ity of extract 14:09: (two) [place] (CRANBERRY 46 times Medical EXTRACT) daily. Branch 300 mg Tab L.acid/L.ca Yes Take by Uni vers sei/B.bif/B 3-21 mouth ity of .zaida/FOS 14:09: daily. [place] (PROBIOTIC 46 Medical BLEND ORAL) Branch cranberry Yes Take by Unive rs fruit 3-21 mouth 2 ity of extract 14:09: (two) [place] (CRANBERRY 46 times Medical EXTRACT) daily. Branch 300 mg Tab L.acid/L.ca 0 Yes Take by Uni vers sei/B.bif/B 3-21 mouth ity of .zaida/FOS 14:09: daily. [place] (PROBIOTIC 46 Medical BLEND ORAL) Branch telmisartan Yes 80mg Take 80 mg Univers 80 mg 3-21 by mouth ity of tablet 14:04: daily. [address] [place] [address] febuxostat Yes 80mg Take 80 mg U nivers (ULORIC) 80 3-21 by mouth ity of mg tablet 14:04: daily. [address] rosuvastati 0 Yes 5mg Take 5 mg U nivers n 5 mg 3-21 by mouth ity of tablet 14:04: daily. [address] telmisartan Yes 80mg Take 80 mg Univers 80 mg 3-21 by mouth ity of tablet 14:04: daily. [address] febuxostat 0 Yes 80mg Take 80 mg U nivers (ULORIC) 80 3-21 by mouth ity of mg tablet 14:04: daily. [address] levothyroxi 2018-0 Yes 100ug Take 100 U nivers ne 100 mcg 3-21 mcg by ity of tablet 14:04: mouth [place] [id number] every Medical morning. Branch furosemide 2019-0 Yes 80mg Take 80 mg U nivers 80 mg 3-21 by mouth ity of tablet 14:04: daily. [address] telmisartan 2019-0 Yes 80mg Take 80 mg Univers 80 mg 3-21 by mouth ity of tablet 14:04: daily. [address] telmisartan 2019-0 Yes 80mg Take 80 mg Univers 80 mg 3-21 by mouth ity of tablet 14:04: daily. [address] febuxostat 2019-0 Yes 80mg Take 80 mg U nivers (ULORIC) 80 3-21 by mouth ity of mg tablet 14:04: daily. [address] febuxostat 2019-0 Yes 80mg Take 80 mg U nivers (ULORIC) 80 3-21 by mouth ity of mg tablet 14:04: daily. [address] telmisartan 2018-0 Yes 80mg Take 80 mg Univers 80 mg 3-21 by mouth ity of tablet 14:04: daily. [address] febuxostat 2019-0 Yes 80mg Take 80 mg U nivers (ULORIC) 80 3-21 by mouth ity of mg tablet 14:04: daily. [address] telmisartan 2018-0 Yes 80mg Take 80 mg Univers 80 mg 3-21 by mouth ity of tablet 14:04: daily. [address] febuxostat 2019-0 Yes 80mg Take 80 mg U nivers (ULORIC) 80 3-21 by mouth ity of mg tablet 14:04: daily. [address] telmisartan 2019-0 Yes 80mg Take 80 mg Univers 80 mg 3-21 by mouth ity of tablet 14:04: daily. [address] febuxostat 2019-0 Yes 80mg Take 80 mg U nivers (ULORIC) 80 3-21 by mouth ity of mg tablet 14:04: daily. [address] RABEprazole 2019-0 Yes 20mg Take 20 mg Univers 20 mg 3-21 by mouth ity of tablet 14:02: daily. [address] liothyronin 2019-0 Yes 5ug Take 5 mcg Univers e 5 mcg 3-21 by mouth ity of tablet 14:01: daily. [address] hydrocodone Yes 1{tbl} Take 1 Tab Univers -acetaminop 3-15 by mouth ity of hen (NORCO) 00:00: every 6 [place] as 5-325 mg 00 (six) Medical tablet hours as Branch needed for Pain. hydrocodone Yes 1{tbl} Take 1 Tab Univers -acetaminop 3-15 by mouth ity of hen (NORCO) 00:00: every 6 [place] as 5-325 mg 00 (six) Medical tablet hours as Branch needed for Pain. hydrocodone Yes 1{tbl} Take 1 Tab Univers -acetaminop 3-15 by mouth ity of hen (NORCO) 00:00: every 6 [place] as 5-325 mg 00 (six) Medical tablet hours as Branch needed for Pain. hydrocodone Yes 1{tbl} Take 1 Tab Univers -acetaminop 3-15 by mouth ity of hen (NORCO) 00:00: every 6 [place] as 5-325 mg 00 (six) Medical tablet hours as Branch needed for Pain. hydrocodone Yes 1{tbl} Take 1 Tab Univers -acetaminop 3-15 by mouth ity of hen (NORCO) 00:00: every 6 [place] as 5-325 mg 00 (six) Medical tablet hours as Branch needed for Pain. hydrocodone Yes 1{tbl} Take 1 Tab Univers -acetaminop 3-15 by mouth ity of hen (NORCO) 00:00: every 6 [place] as 5-325 mg 00 (six) Medical tablet hours as Branch needed for Pain. hydrocodone Yes 1{tbl} Take 1 Tab Univers -acetaminop 3-15 by mouth ity of hen (NORCO) 00:00: every 6 [place] as 5-325 mg 00 (six) Medical tablet hours as Branch needed for Pain. Vital Signs Vital Name Observation Time Observation Value Comments Source Systolic blood 2023-03-30 14:09:00 132 mm[Hg] Univer sity of pressure [facility] Diastolic blood 2023-03-30 14:09:00 48 mm[Hg] [facility] Heart rate 2023-03-30 14:09:00 75 /min Universi ty [facility] Body temperature 2023-03-30 14:09:00 36.5 Ashli [facility] Respiratory rate 2023-03-30 14:09:00 16 /min [facility] Body height 2023-03-30 14:09:00 167.6 cm [facility] Body weight 2023-03-30 14:09:00 83.915 kg [facility] BMI 2023-03-30 14:09:00 29.86 kg/m2 [facility] Oxygen saturation in 2023-03-30 14:09:00 99 /min [facility] Arterial blood by [facility] Pulse oximetry [place] Procedures Procedure Date / Time Performed Performing Clinician Sourc e URINE CULTURE 2023-03-30 15:03:00 ReinaldoNettie Procious o f [facility] POCT URINALYSIS AUTO 2023-03-30 14:20:00 Nettie Najera [facility] REFERRAL- 2023-03-23 05:01:00 Doctor Unassigned, No [facility] REQUEST/RESPONSE Name [facility] Encounters Start End Encounter Admission Attending Care Care Encounter Source Date/Time Date/Time Type Type Clinicians Facility Department ID 2020-10-13 Outpatient [facility] [id number] 13:14:56 PROVIDER Obed tidwell 2023-07-01 2023-07-01 Outpatient R NETTIE NAJERA [facility] [id number] [facility] 11:30:00 11:30:00 NETTIE NAJERA [facility] 2023-04-07 2023-04-07 Telephone [facility] [id number] Univers 00:00:00 00:00:00 Nettie MCNEAL [id number] [id number] [id number] Pr dical NAL 134 [facility] 2023-04-05 2023-04-05 Refill [facility] [id number] Univers 00:00:00 00:00:00 Nettie MCNEAL [id number] [id number] [id number] Pr dical NAL 098 [facility] 2023-03-30 2023-03-30 Outpatient NETTIE ARCOS [facility] [id number] Univers 09:00:00 10:04:25 NETTIE NAJERA itjaycee of [facility] 2023-03-30 2023-03-30 Office Reinaldo MTGEMMA ACEVEDO [id number] Univers 09:00:00 10:04:25 Visit Nettie NAJERA [id number] it y [place] [id number] [facility] 098 Branch 2023-03-23 2023-03-23 Orders Doctor SHANE [id number] [place] [address] 00:00:00 00:00:00 Only Unassigned, ALISA [id number] ity of [place] [facility] 4.2.7.2.686 [place] as [id number] [facility] 009 Branch 2022-10-15 2022-10-15 Outpatient JORDAN BHANDARI [facility] MDA [id number] 08:07:31 09:25:58 MILDRED tidwell 2022-10-15 2022-10-15 Outpatient JORDAN BHANDARI MDA MDA [id number] 07:43:47 07:43:47 MILDRED tidwell 2021-10-23 2021-10-23 Outpatient JORDAN SHELL [facility] MDA [id number] 09:17:50 09:17:50 ALIE tidwell 2021-10-23 2021-10-23 Outpatient JORDAN SHELL MDA MDA [id number] 08:18:09 08:18:09 ALIE tidwell 2020-10-03 2020-10-08 Outpatient JORDAN HEATH MDA MDA [id number] 09:19:28 08:21:37 THELMA tidwell 2020-10-03 2020-10-03 Outpatient JORDAN HEATH MDA MDA [id number] 08:59:38 23:59:00 THELMA tidwell 2018-04-27 2018-04-27 Outpatient JORDAN LOWERY MDA MDA [id number] 10:30:01 10:30:01 JEANINE tidwell Results Test Description Test Time Test Comments Results Result Comments Source POCT URINALYSIS, INSTRUMENT 2023-03-30 14:20:00 Test Item Value Reference Range Interpretation Comme nts POCT U SP GRAV (test code = 3255) 1.005 mg/dl 1.005-1.025 POCT PH U (test code = 3254) 5.5 mg/dl 5-8 POCT U LEUK EST (test code = 3263) smal Negative - Negative POCT U NIT (test code = 3262) positive Negative - Negative POCT U PROT (test code = 3259) negative Negative - Negative POCT U GLU (test code = 3256) negative Negative - Negative POCT U KETONE (test code = 3258) negative Negative - Negative POCT U UROBILI (test code = 3260) 0.2 mg/dl 0.2-1 POCT U BILI (test code = 3261) negative Negative - Negative POCT U BLD (test code = 3257) negative Negative - Negative POCT U COLOR (test code = 3266) yellow POCT U APPEAR (test code = 3267) clear [facility] URINALYSIS, [id number] 14:20:00 Test Item Value Reference Range Interpretation Comments POCT U SP GRAV (test code = 1.005 mg/dl 1.005-1.025 3255) POCT PH U (test code = 3254) 5.5 mg/dl 5-8 POCT U LEUK EST (test code = smal Negative - Negative 3263) POCT U NIT (test code = 3262) positive Negative - Negative POCT U PROT (test code = negative Negative - Negative 3259) POCT U GLU (test code = 3256) negative Negative - Negative POCT U KETONE (test code = negative Negative - Negative 3258) POCT U UROBILI (test code = 0.2 mg/dl 0.2-1 0) POCT U BILI (test code = negative Negative - Negative 3261) POCT U BLD (test code = 3257) negative Negative - Negative POCT U COLOR (test code = yellow 3266) POCT U APPEAR (test code = clear 3267) [facility] [id number] 14:20:00 Test Item Value Reference Range Interpretation Comments POCT U SP GRAV (test code = 1.005 mg/dl 1.005-1.025 3255) POCT PH U (test code = 3254) 5.5 mg/dl 5-8 POCT U LEUK EST (test code = smal Negative - Negative 3263) POCT U NIT (test code = 3262) positive Negative - Negative POCT U PROT (test code = negative Negative - Negative 3259) POCT U GLU (test code = 3256) negative Negative - Negative POCT U KETONE (test code = negative Negative - Negative 3258) POCT U UROBILI (test code = 0.2 mg/dl 0.2-1 3260) POCT U BILI (test code = negative Negative - Negative 3261) POCT U BLD (test code = 3257) negative Negative - Negative POCT U COLOR (test code = yellow 3266) POCT U APPEAR (test code = clear 3267) [facility] [id number] 14:20:00 Test Item Value Reference Range Interpretation Comments POCT U SP GRAV (test code = 1.005 mg/dl 1.005-1.025 3255) POCT PH U (test code = 3254) 5.5 mg/dl 5-8 POCT U LEUK EST (test code = smal Negative - Negative 3263) POCT U NIT (test code = 3262) positive Negative - Negative POCT U PROT (test code = negative Negative - Negative 9) POCT U GLU (test code = 3256) negative Negative - Negative POCT U KETONE (test code = negative Negative - Negative 8) POCT U UROBILI (test code = 0.2 mg/dl 0.2-1 3260) POCT U BILI (test code = negative Negative - Negative 1) POCT U BLD (test code = 3257) negative Negative - Negative POCT U COLOR (test code = yellow 3266) POCT U APPEAR (test code = clear 3267) [facility]
--- NOTE | 2023-04-24 19:59 | RAD REPORT ---
EXAM DESCRIPTION: RAD - Chest Single View - 04/24/2023 7:49 pm CLINICAL HISTORY: CHEST PAIN COMPARISON: Chest Pa And Lat (2 Views) dated 04/14/2023; Chest Single View dated 02/04/2023; Chest Sing le View dated 01/13/2023; Chest Single View dated 01/12/2023; Chest For Pe Angio dated 04/22/2023 FINDINGS: Lines: None. Lungs: Increased prominence of the pulmonary interstitium. Likely atelectasis as result of the pleura l fluid. Pleural: Similar moderate left pleural effusion. Cardiac: Cardiomegaly. Mediastinum: Within normal limits. Bones: No acute fractures. Right shoulder arthroplasty. Other: None IMPRESSION: Pulmonary edema with moderate left effusion. The edema is likely worsened since 04/14/20 23.
[2023-04-24 20:13] LABS: Absolute Lymphocytes (CBC) 1.1 K/uL (0.7-4.9); Hematocrit 31.2 % (36.0-45.0); Lymphocytes % 14.4 % (15.3-44.8); MCV 92.8 fL (80-100); MPV 9.5 fL (7.6-11.3); Platelets 162 thou/uL (152-406); RBC Red Blood Cell Count 3.37 M/uL (3.86-4.86)
[2023-04-24 20:34] LABS: Albumin 3.3 g/dL (3.4-5.0); Bilirubin Total 0.4 mg/dL (0.2-1.0); Potassium 3.5 mEq/L (3.5-5.1); Protein, Total 6.6 g/dL (6.4-8.2)
--- NOTE | 2023-04-24 22:49 | RAD REPORT ---
EXAM DESCRIPTION: CTChest Abd Pelvis Wo Con - 04/24/2023 10:36 pm CLINICAL HISTORY: SOB COMPARISON: Chest For Pe Angio dated 04/22/2023; Chest For Pe Angio dated 01/05/2023; Chest For Pe Grisel o dated 08/09/2022; Thorax W/ Con dated 01/16/2021; Chest Single View dated 04/24/2023 TECHNIQUE: CT of the chest, abdomen, and pelvis was performed. All CT scans are performed using dose optimization technique as appropriate and may include automated exposure control or mA/KV adjustment according to patient size. FINDINGS: Thorax: Chest Wall: No abnormal mass Lungs: Likely atelectasis as a result of the pleural effusions. Mild mosaic lung attenuation. No susp icious pulmonary nodules. Pleura: Moderate left and small to moderate right pleural effusion. Juliette/Mediastinum: No lymphadenopathy. Aorta/Pulmonary Arteries: Unremarkable Heart: Mild cardiomegaly. Aortic valve calcifications. Coronary artery calcifications. Atrial appenda ge exclusion of ice. Abdomen/Pelvis: Liver: No acute abnormality or suspicious lesions. Biliary: No biliary ductal dilatation. Vicarious excretion of contrast in the gallbladder. Stomach: No significant focal abnormality. Duodenum: No significant focal abnormality. Pancreas: Atrophy. Spleen: No significant abnormality. Adrenal: No suspicious lesions. Kidney/ureter: No hydronephrosis. 2 mm nonobstructing stone in the left kidney. Mild hyperdense roxy nts within the right and left collecting systems and bladder likely excreted contrast. Retroperitoneum: No retroperitoneal adenopathy. Vascular: No aneurysm. Atherosclerosis. Bowel: No significant focal abnormality. Peritoneum: No ascites or free air. Bladder: Grossly unremarkable. Reproductive: Hysterectomy. Bones: No acute fracture. Right shoulder arthroplasty. Other: n/a IMPRESSION: 1. Bilateral pleural effusions (moderate on the left, small moderate on the right) and l ikely underlying atelectasis. This is probably due to pulmonary edema. 2. No acute intra-abdominal abnormality.
[2023-04-24 22:52] LABS: Specific Gravity 1.023 (1.005-1.030); Urine Bacteria None Seen /HPF (<20); Urine Bilirubin NEGATIVE (Negative); Urine Blood Negative (Negative); Urine Clarity Clear (Clear); Urine Color Yellow (Yellow); Urine Glucose NEGATIVE (Negative); Urine Mucus Slight /HPF (None Seen); Urine Protein TRACE (Negative); Urine RBC <5 /HPF (None Seen); Urine Urobilinogen Normal (Normal)
--- NOTE | 2023-04-24 22:58 | ER ---
Nurse's Notes [facility] Name: Aubrie Del Toro Age: 82 yrs Sex: Female : 1940 Arrival Date: 04/24/2023 Time: 18:59 Bed 3 Private MD: Diagnosis: Symptomatic Bradycardia;Acute respiratory failure with hypoxia Presentation: 04/24 19:08 Chief complaint: EMS states: SOB AND GEN WKN x3 DAYS. Coronavirus screen: At this time, bp the client does not indicate any symptoms associated with coronavirus-19. Ebola Screen: No symptoms or risks identified at this time. Initial Sepsis Screen: Does the patient meet any 2 criteria? No. Patient's initial sepsis screen is negative. Does the patient have a suspected source of infection? No. Patient's initial sepsis screen is negative. Risk Assessment: Do you want to hurt yourself or someone else? Patient reports no desire to harm self or others. Onset of symptoms is unknown. 19:08 Method Of Arrival: EMS: [facility] bp 19:08 Acuity: [facility] 3 bp Triage Assessment: 19:10 General: Appears in no apparent distress. Behavior is cooperative, appropriate for age, bp drowsy. Pain: Denies pain. EENT: No deficits noted. Neuro: Level of Consciousness is lethargic, Oriented to Appropriate for age. Cardiovascular: Rhythm is sinus bradycardia. Respiratory: Reports shortness of breath. GI: No signs and/or symptoms were reported involving the gastrointestinal system. : No signs and/or symptoms were reported regarding the genitourinary system. Derm: No deficits noted. Musculoskeletal: No deficits noted. Historical: - Allergies: 19:10 No Known Allergies; bp - Home Meds: 19:10 carvedilol 12.5 mg Oral tab 1 tab 2 times per day [Active]; doxazosin 4 mg Oral tab bp [Active]; Lasix 40 mg Oral tab 1 tab once daily [Active]; metoprolol tartrate 50 mg Oral tab [Active]; Xarelto 20 mg Oral tab 1 tab once daily [Active]; Plavix 75 mg Oral tab 1 tab once daily [Active]; - PMHx: 19:10 Atrial fibrillation; bladder issues; Cataracts; GERD; Headaches; Hypertension; bp Hypothyroidism; l eblow melanoma; lymphedema; neuropathy; - PSHx: 19:10 Appendectomy; Total abdominal hysterectomy; bp - Immunization history:: Adult Immunizations up to date. - Social history:: Smoking status: Patient denies any tobacco usage or history of. Screenin:[address] [facility] ED Fall Risk Assessment (Adult) History of falling in the last 3 months, bp including since admission No falls in past 3 months (0 pts). Abuse screen: Denies threats or abuse. Denies injuries from another. Nutritional screening: No deficits noted. Tuberculosis screening: No symptoms or risk factors identified. Assessment: 19:10 General: SEE TRIAGE NOTE. bp 21:53 Reassessment: Patient appears in no apparent distress at this time. Patient is alert, bp oriented x 3, equal unlabored respirations, skin warm/dry/pink. Vital Signs: 19:08 BP 191 / 59; Pulse 46; Resp 15; Pulse Ox 81% on R/A; bp 21:53 BP 182 / 59; Pulse 44; Resp 16; Pulse Ox 98% ; bp 23:20 BP 182 / 53; Pulse 44; Resp 15; Pulse Ox 93% ; bp ED Course: 19:02 Patient arrived in ED. rv1 19:06 Oly Hammonds PA-C is PHCP. sb4 19:06 Malini Rivera MD is Attending Physician. sb4 19:08 Chris Villegas, DARIELA is Primary Nurse. bp 19:09 Triage completed. bp 19:10 Arm band placed on. bp 19:51 Chest Single View XRAY In Process Unspecified. EDMS 20:00 Inserted saline lock: 22 gauge in right antecubital area, using aseptic technique. bp Blood collected. 21:53 Patient has correct armband on for positive identification. Bed in low position. Call bp light in reach. Side rails up X2. 22:28 UAM Sent. bp 22:38 CT Chest Abdomen Pelvis W/O Contrast In Process Unspecified. EDMS 22:57 Eddie Solis MD is Hospitalizing Provider. sb4 23:20 No provider procedures requiring assistance completed. Patient admitted, IV remains in bp place. Administered Medications: No medications were administered Outcome: 22:58 Decision to Hospitalize by Provider. sb4 23:29 Admitted to ICU accompanied by nurse, via stretcher, room 1, with chart, Report called bp to JOCELYNN LYLE 23:29 Condition: stable 23:29 Instructed on the need for admit, 04/25 00:22 Patient left the ED. bp Signatures: Dispatcher [employer] Chris Villarreal, DARIELA RN Oly Hua PA-C PA-C sb4 Anastacia Linares rv1 Corrections: (The following items were deleted from the chart) 04/24 22:09 21:53 BP 182 / 59; Pulse 44bpm; Resp 46bpm; Pulse Ox 98%; bp bp
--- NOTE | 2023-04-24 22:58 | EDPHYS ---
Physician Documentation [facility] Name: Aubrie Del Toro Age: 82 yrs Sex: Female : 1940 Arrival Date: 04/24/2023 Time: 18:59 Bed 3 Private MD: ED Physician Malini Rivera HPI: 04/24 22:11 This 82 yrs old Female presents to ER via EMS with complaints of generalized weakness. sb4 04/25 00:08 patient reports shortness of breath and generalized weakness for 3 days. she has been sb4 dealing with UTIs over the past few months and family thinks that is what is recurring. patient states recent change in BP medications- bystolic added about 1 week ago due to elevated BP readings. HR noted in the 40s, initially saturating 81% on room air, improved with supplemental oxygen. Historical: - Allergies: 04/24 19:10 No Known Allergies; bp - Home Meds: 19:10 carvedilol 12.5 mg Oral tab 1 tab 2 times per day [Active]; doxazosin 4 mg Oral tab bp [Active]; Lasix 40 mg Oral tab 1 tab once daily [Active]; metoprolol tartrate 50 mg Oral tab [Active]; Xarelto 20 mg Oral tab 1 tab once daily [Active]; Plavix 75 mg Oral tab 1 tab once daily [Active]; - PMHx: 19:10 Atrial fibrillation; bladder issues; Cataracts; GERD; Headaches; Hypertension; bp Hypothyroidism; l eblow melanoma; lymphedema; neuropathy; - PSHx: 19:10 Appendectomy; Total abdominal hysterectomy; bp - Immunization history:: Adult Immunizations up to date. - Social history:: Smoking status: Patient denies any tobacco usage or history of. ROS: 04/25 00:09 Constitutional: Negative for fever, chills, and weight loss, sb4 Respiratory: Positive for shortness of breath, Neuro: Positive for weakness, All other systems are negative, Exam: 04/24 23:43 ECG was reviewed by the Attending Physician. sb4 04/25 01:39 Constitutional: This is a well developed, well nourished patient who is awake, alert, sb4 and in no acute distress. Head/Face: Normocephalic, atraumatic. Eyes: Extra-ocular motions intact. Periorbital areas with no swelling, redness, or edema. ENT: Mucous membranes moist. Abdomen/GI: Soft, non-tender, no distension. Skin: Warm, dry with normal turgor. Normal color with no rashes, no lesions, and no evidence of cellulitis. MS/ Extremity: Pulses equal, no cyanosis. Neurovascular intact. Full, normal range of motion. ENT: Mouth: Oral mucosa: dry, Cardiovascular: Rate: bradycardic, Rhythm: regular, Pulses: no pulse deficits are appreciated, JVD: is not appreciated, Respiratory: the patient does not display signs of respiratory distress, Respirations: normal, no acute changes, Breath sounds: rales, that are mild, are located in both bases, Vital Signs: 04/24 19:08 BP 191 / 59; Pulse 46; Resp 15; Pulse Ox 81% on R/A; bp 21:53 BP 182 / 59; Pulse 44; Resp 16; Pulse Ox 98% ; bp 23:20 BP 182 / 53; Pulse 44; Resp 15; Pulse Ox 93% ; bp MDM: 19:06 Patient medically screened. sb4 04/25 01:39 Differential Diagnosis dehydration, UTI, electrolyte abnormality, CHF exacerbation. sb4 Data reviewed: vital signs, nurses notes, EMS record, old medical records, prior admission note and labs, prior EKGs lab test result(s), EKG, radiologic studies, I have discussed the patient's presentation/case with the attending Emergency Department Physician; and as a result, I will admit patient. Consideration of Admission/Observation Patient was admitted/placed on observation. Historians other than the Patient: Daughter/Son: daughter. Care significantly affected by the following chronic conditions: Hypertension, Congestive Heart Failure, Chronic Kidney Disease. Counseling: I had a detailed discussion with the patient and/or guardian regarding the historical points, exam findings, and any diagnostic results supporting the discharge/admit diagnosis, the presence of at least one elevated blood pressure reading (>120/80) during this emergency department visit, lab results, radiology results, the need for further work-up and treatment in the hospital. 04/24 19:18 Order name: Blood Culture Adult (2) sb4 04/24 19:18 Order name: CBC with Diff; Complete Time: 20:22 sb4 04/24 19:18 Order name: CMP; Complete Time: 20:41 sb4 04/24 19:18 Order name: Lactate w/ 2H reflex if indic.; Complete Time: 20:41 sb4 04/24 19:18 Order name: UAM; Complete Time: 22:54 sb4 04/24 22:57 Order name: Urine Culture EDMS 04/24 19:18 Order name: Chest Single View XRAY; Complete Time: 20:22 sb4 04/24 21:56 Order name: CT Chest Abdomen Pelvis W/O Contrast; Complete Time: 22:50 sb4 04/24 19:18 Order name: EKG; Complete Time: 19:19 sb4 04/24 19:18 Order name: Accucheck; Complete Time: 20:03 sb4 04/24 19:18 Order name: Cardiac monitoring; Complete Time: 20:03 sb4 04/24 19:18 Order name: EKG - Nurse/Tech; Complete Time: 20:03 sb4 04/24 19:18 Order name: IV Saline Lock - Large Bore; Complete Time: 20:03 sb4 04/24 19:18 Order name: Labs collected and sent; Complete Time: 20:03 sb4 04/24 19:18 Order name: O2 Per Protocol; Complete Time: 20:03 sb4 04/24 19:18 Order name: O2 Sat Monitoring; Complete Time: 20:03 sb4 04/24 19:18 Order name: Vital Signs; Complete Time: 20:03 sb4 04/24 23:02 Order name: EKG - Nurse/Tech; Complete Time: 23:40 sb4 EC/24 23:43 Rate is 44 beats/min. Rhythm is irregular, Sinus bradycardia with 1st degree heart sb4 block. QRS [place] is Normal. [place] interval is prolonged at 218 msec. QRS interval is normal at 102 msec. QT interval is prolonged at [address] changes noted. Clinical impression: Sinus bradycardia. Interpreted by me. Reviewed by me. Administered Medications: No medications were administered Disposition Summary: 04/24/23 22:58 Hospitalization Ordered Notes: Hospitalization Status: Inpatient Admission sb4 Provider: Eddie Solis sb4 Condition: Fair sb4 Problem: new sb4 Symptoms: are unchanged sb4 Bed/Room Type: Standard sb4 Location: Intensive Care Unit(04/24/23 23:02) sb4 Room Assignment: 1-(04/24/23 23:10) mw Diagnosis - Symptomatic Bradycardia sb4 - Acute respiratory failure with hypoxia sb4 Forms: - Medication Reconciliation Form sb4 - SBAR form sb4 - Leadership Thank You Letter sb4 Signatures: Dispatcher [employer] Amanda Gray RN RN Chris Moscoso RN RN Oly Hua PA-C PA-C sb4 Corrections: (The following items were deleted from the chart) 23: 22:58 Telemetry/MedSurg (Inpatient) sb4 sb4 23: 22:58 sb4 sb4 23:10 23:02 sb4 darryl
[2023-04-25] MEDS ORDERED: INFLUENZA VACCINE (for 6+ mo) 0.5 ML DOSE IMVAC ONE (08:00)
[2023-04-25] MEDS: HYDRALAZINE HCL 25 MG TABLET PO SCH ×3 (09:00→21:56)
[2023-04-25] MEDS: PANTOPRAZOLE 40MG TABLET PO SCH (09:00)
[2023-04-25] MEDS: GABAPENTIN 300 MG CAP PO SCH ×3 (09:00→21:55)
[2023-04-25] MEDS: ursodioL 300 MG CAP PO SCH ×2 (09:00→21:55)
[2023-04-25] MEDS: POTASSIUM CL SA 10 MEQ TAB PO SCH (09:00)
[2023-04-25] MEDS: GABAPENTIN 100 MG CAP PO SCH ×3 (09:00→21:55)
[2023-04-25] MEDS: LOSARTAN POTASSIUM 50 MG TABLET PO SCH (09:00)
[2023-04-25] MEDS: MONTELUKAST 10 MG TAB PO SCH (09:00)
[2023-04-25] MEDS ORDERED: HOME MED 1 EA UNK (Potassium Chloride [Potassium Chloride] 20 MEQ Tablet.Er) PO SCH (09:00)
[2023-04-25] MEDS: AMIODARONE HCL 200 MG TAB PO SCH (09:00)
[2023-04-25] MEDS ORDERED: TORSEMIDE 20 MG TAB PO SCH (09:00)
[2023-04-25] MEDS ORDERED: FUROSEMIDE 100 MG in NA CHLORIDE 0.9% 90 ML IV SCH (09:00)
[2023-04-25] MEDS: MEMANTINE HCL 10 MG TABLET PO SCH ×2 (09:00→21:55)
[2023-04-25] MEDS ORDERED: HOME MED 1 EA UNK (Rabeprazole Sodium [Rabeprazole Sodium] 20 MG Tablet.Dr) PO SCH (09:00)
--- NOTE | 2023-04-25 09:04 | CON ---
Date of Consultation: 04/25/2023 Reason For Consultation: Shortness of breath and bradycardia. History Of Present Illness: 82-year-old female who presented to the emergency room with shortness of breath and generalized weakness. Claimed that on Tuesday, tried to get up to go to the mu-ism and co uld not, feeling dizzy, weak, shortness of breath with exertion, and mild orthopnea. She is known to have history of diastolic heart failure. Past Medical History: Atrial fibrillation, diastolic heart failure, hypertension, hypothyroidism, pe ripheral neuropathy. Medications: Refer to reconciliation sheet for detailed list. Allergies: NO KNOWN DRUG ALLERGIES. Family History: No mature coronary artery disease. Social History: She does not smoke or drink. Does not use any drugs. Review of Systems: All systems reviewed. They were negative except mentioned in HPI. Physical Examination: Vital signs: Reviewed. Head and Neck: Pupils are equal, reactive to light. Intact eye movements. No JVD. No cervical lym phadenopathy. Neck: Supple. Thyroid is not enlarged. Lungs: Decreased breathing sounds bilaterally. No rhonchi, wheezing, crackles. No accessory muscle use. Heart: Irregular. No extra sounds. Abdomen: Soft, nontender. Bowel sounds positive. No organomegaly. No masses or hernia. No rigidi ty or rebound. Extremities: Edema bilaterally. No clubbing, cyanosis. Intact pulses. Skin: No rash. Neurologic: Alert, awake, oriented x3. No acute focal deficits associated. Investigations: BUN 38, creatinine is 1.77. Hemoglobin is 10.3. CT scan, chest, abdomen, pelvis, showed bilateral pleural effusion, moderate on left, small to modera te on the right and pulmonary edema. Assessment And Recommendation: 1.Acute on chronic diastolic heart failure exacerbation. Start Lasix 40 mg IV q.12 hours and monito r BUN, creatinine, electrolytes. 2.Bradycardia. She is maintaining excellent blood pressure with it, to leave off the Bystolic that was started recently and hold amiodarone for now. We will resume amiodarone once the heart rate goes up. 3.Renal failure, acute on chronic. Should improve with diuresis, likely due to elevated central lisa ous pressure. SR/MODL Voice ID: [id number] Report ID: [id number]
[2023-04-25] MEDS: MAGNESIUM CITRATE AND OXIDE 250 MG PO SCH ×2 (11:10→21:58)
[2023-04-25] MEDS: METHENAMINE HIPPURATE 1 GM PO SCH ×2 (11:10→21:57)
[2023-04-25] MEDS: LIOTHYRONINE SOD 5 MCG TAB PO SCH (11:11)
--- NOTE | 2023-04-25 12:29 | EKG ---
Test Date: 2023-04-24 Test Time: 19:35:34 Police Captain Senior: BP MEASUREMENT RESULTS: Intervals: Rate: 44 ME: QRSD: 100 QT: 524 QTc: 448 [place]: P: ME: QRS: 23 T: 13 INTERPRETIVE STATEMENTS: Junctional bradycardia Nonspecific T wave abnormality Abnormal ECG Compared to ECG 02/04/2023 20:48:42 T-wave abnormality now present Sinus bradycardia no longer present Electronically Signed On 04-25-23 12:28:57 CDT by Eagle Osbonr
--- NOTE | 2023-04-25 12:29 | EKG ---
Test Date: 2023-04-24 Test Time: 23:34:13 [employer]: SANTINO MEASUREMENT RESULTS: Intervals: Rate: 44 HI: 218 QRSD: 102 QT: 542 QTc: 463 [place]: P: 76 HI: 218 QRS: 23 T: 25 INTERPRETIVE STATEMENTS: Marked sinus bradycardia with 1st degree AV block Nonspecific T wave abnormality Abnormal ECG Compared to ECG 04/24/2023 19:35:34 First degree AV block now present T-wave abnormality still present Electronically Signed On 04-25-23 12:28:19 CDT by Eagle Osborn
[2023-04-25] MEDS: FUROSEMIDE 100 MG in NA CHLORIDE 0.9% 90 ML IV SCH (13:28)
[2023-04-25] MEDS: ACETAMINOPHEN 500 MG TAB PO PRN ×2 (14:28→19:40)
--- NOTE | 2023-04-25 17:53 | P.HP ---
Certification for Inpatient Patient admitted to: Inpatient With expected LOS: >2 Midnights Practitioner: I am a practitioner with admitting privileges, knowledge of patient current condition, hospital course, and medical plan of care. Services: Services provided to patient in accordance with Admission requirements found in Title 42 Section 412.3 of the Code of Federal Regulations Patient History Date of Service: 04/25/23 Reason for admission: WEAKNESS, DROPPING STUFF History of Present Illness: GRACIELA IS A COMPLICATED PATIENT WITH DIASTOLIC HEART FAILURE WHO DOES NOT YOSHI ATE DIURETICS FOR LONG SHE GOES INTO WORSE RENAL FAILURE WITH EVEN A SMALL DOSE OF DIURETIC. SHE ALSO HAS UNCONTROLLED BP AND IS ALREADY ON HYDRALAZINE, LOSARTAN AT A HIGH DOSE. AMLODIPINE DID NOT WORK SHE HAD SEVERE EDEMA AND B BLOCKERS GIVE HER SEVERE BRADYCARDIA THAT IS WHAT HAPPENED THIS TIME AND SHE GOT VERY WEAK. I STARTED HER ON LASIX DRIP SHE DOES NOT DO WELL WITH BOLUSES LONG RENAL FUNCTION IS CONCERNED. Allergies No Known Allergies Allergy (Verified 01/01/21 20:48) Home medications list reviewed: Yes Home Medications: Liothyronine Sodium [Cytomel] 5 mcg PO DAILY 01/01/21 ursodioL [Ursodiol] 300 mg PO BID 01/01/21 Levothyroxine [Synthroid*] 112 mcg PO [id number] 05/25/22 Rosuvastatin [Crestor*] 5 mg PO BEDTIME 05/25/22 Losartan Potassium 100 mg PO DAILY #90 tab 05/28/22 Potassium Chloride 20 meq PO DAILY 08/11/22 Amiodarone HCl [Cordarone*] 1 tab PO DAILY 12/30/22 Magnesium Citrate and Oxide [Magnesium] 1 cap PO BID 12/30/22 Memantine HCl 1 tab PO BID 12/30/22 Methenamine Hippurate 1 tab PO BID 12/30/22 Montelukast [Singulair*] 1 tab PO DAILY 12/30/22 Torsemide 10 mg PO DAILY #30 tab 02/11/23 Cranberry Concentrate + Vit C 30,000 mg PO BID 04/25/23 Gabapentin 2 cap PO TID 04/25/23 Gabapentin 100 mg PO TID 04/25/23 Kael-Plex 2 cap PO BEDTIME 04/25/23 Nebivolol HCl [Bystolic] 5 mg PO DAILY 04/25/23 Rabeprazole Sodium 20 mg PO DAILY 04/25/23 Turmeric Root Extract [Turmeric Curcumin] 1,500 mg PO BID 04/25/23 Urinary [place] 1 cap PO BID 04/25/23 hydroCHLOROthiazide [Hydrochlorothiazide] 25 mg PO DAILY 04/25/23 - Past Medical/Surgical History Has patient received pneumonia vaccine in the past: Yes Diabetic: No -: Chronic diastolic congestive heart failure -: Hypothyroidism -: GERD -: Neuropathy -: Insomnia -: Hyperlipidemia -: overactive bladder -: Lymphedema -: Atrial fibrillation status post Watchman procedure -: GOUT -: anemia -: ANEMIA -: Right Shoulder Replacement -: Bilateral knee replacement -: Hysterectomy -: ULE Melanoma removal -: Tonsilectomy -: Adnoidectomy -: Bilateral eye surgery r/t strabismus -: Watchman Psychosocial/ Personal History: Patient is resident of [facility] - Family History Mother -: Hypertension, Stroke, Other (see notes) Notes: COPD Father -: Heart disease, Other (see notes) Notes: CHF - Social History Smoking Status: Never smoker Alcohol use: No CD- Drugs: No Caffeine use: No Place of Residence: Home Review of Systems 10-point ROS is otherwise unremarkable General: Weakness, Malaise Physical Examination - Vital Signs Temperature: 97.6 F Blood Pressure: 163/39 Pulse: 46 Respirations: 12 Pulse Ox (%): 98 - Physical Exam General: Oriented x3, Mild distress, Obese HEENT: Atraumatic, PERRLA, Mucous membr. moist/pink, EOMI, Sclerae nonicteric Neck: Supple, 2+ carotid pulse no bruit, No LAD, Without JVD or thyroid abnormality Respiratory: Diminished Cardiovascular: Regular rate/rhythm, Normal S1 S2 Gastrointestinal: Normal bowel sounds, No tenderness Musculoskeletal: No tenderness Integumentary: No rashes Neurological: Normal gait, Normal speech, Normal strength at 5/5 x4 extr, Normal tone, Normal affect Lymphatics: No axilla or inguinal lymphadenopathy - Studies Laboratory Data (last 24 hrs) 04/24/23 04/24/23 20:00 20:00 WBC 7.50 Hgb 10.3 L Hct 31.2 L Plt Count 162 Sodium 142 Potassium 3.5 BUN 38 H Creatinine 1.77 H Glucose 118 H Total Bilirubin 0.4 AST 32 ALT 38 Alkaline Phosphatase 86 Assessment and Plan - Problems (Diagnosis) (1) Acute on chronic diastolic heart failure Current Visit: Yes Status: Acute Plan: LASIX DRIP DAILY LAB CARD AND NEPH CONSULTED. (2) Sinus bradycardia Current Visit: Yes Status: Acute Plan: STOP BYSTOLIC HOLD AMIO FOR A FEW DAYS. (3) General weakness Current Visit: Yes Status: Acute (4) CKD (chronic kidney disease) stage 3, GFR 30-59 ml/min Current Visit: Yes Status: Chronic Plan: DAILY LAB. I AM SURE HER CREAT WILL START GOING HIGHER CHECK PVR. - Advance Directives Does patient have a Living Will: No Does patient have a Durable POA for Healthcare: No
[2023-04-25 17:55] LABS: Phosphorus 4.3 mg/dL (2.5-4.9); Potassium 3.6 mEq/L (3.5-5.1)
[2023-04-25 17:59] LABS: Magnesium 2.4 mg/dL (1.6-2.4); Phosphorus 4.4 mg/dL (2.5-4.9)
[2023-04-25] MEDS ORDERED: CRESTOR 5 MG PO SCH (21:00)
[2023-04-25] MEDS: CRESTOR 5 MG PO SCH (21:57)
[2023-04-25] MEDS ORDERED: NA CHLORIDE 0.9% 100 ML ONE (23:53)
[2023-04-25] MEDS ORDERED: FUROSEMIDE 100 MG/10 ML VIAL IV ONE (23:53)
[2023-04-26] MEDS: FUROSEMIDE 100 MG in NA CHLORIDE 0.9% 90 ML IV SCH ×4 (01:55→23:36)
--- NOTE | 2023-04-26 02:47 | CON ---
Date of Consultation: 04/25/2023 Chief Complaint: Acute on chronic kidney injury. History Of Present Illness: The patient has multiple medical problems including history of congestiv e heart failure. She presented to the hospital because of generalized weakness and difficulty with b alance. Patient has history of diastolic congestive heart failure and previously she was treated wit h diuretic, although she developed prerenal azotemia, worsening of the renal function. She has also uncontrolled blood pressure and she has been treated with multiple blood pressure medications includi ng hydralazine and losartan at high dose. She did not tolerate amlodipine because she developed camilla re leg edema and difficulty with ambulation. She has history of underlying severe bradycardia, and r ecently, she became weak and was found to have bradycardia. She was admitted to ICU and will be seen by family preservation caseworker. Patient is fluid overloaded. She has anasarca, congestive heart failure exacerbat ion, is admitted to ICU and started on Lasix drip. Review of Systems: Constitutional: She denies fever, chills. Eyes: Denies vision changes. Ears, Nose, Mouth, and Throat: Denies sore throat, earache. Respiratory: Has dyspnea on exertion. Denies PND, orthopnea. Cardiovascular: Denies chest pain, palpitation, syncope. GI: Denies nausea, vomiting. : Denies dysuria, hematuria. Denies kidney colic. All other systems reviewed and all are negative. Past Medical History: Chronic diastolic congestive heart failure, hypothyroidism, GERD, neuropathy, insomnia, hyperlipidemia, overactive bladder, lymphedema, atrial fibrillation, status post Watchman p rocedure, gout, anemia, chronic right shoulder replacement, bilateral knee replacement, hysterectomy, melanoma removal, ULE; tonsillectomy, adenoidectomy, bilateral eye surgery for strabismus. Family History: Mother; hypertension, stroke. Father, heart disease. Social History: Denies tobacco, alcohol, drugs. Physical Examination: General: Patient is arousable. Eyes: Anicteric sclerae. EOMI. Ears, Nose, Mouth, and Throat: Oral mucosa moist. No pallor. Neck: Supple. No bruits. Lungs: Diminished breath sounds at bases. Few crackles. Abdomen: Soft, benign, nontender. No rebound. No guarding. Extremities: Edema present. Laboratory Data: Sodium 142, potassium 3.5, BUN 38, creatinine 1.77, glucose 118, total bilirubin 0. 4, AST 32, ALT 38, ALP 86. Hemoglobin 10.3, WBC 7.5, and platelets 162. Impression And Plan: 1.Acute on chronic kidney injury. Patient has acute on chronic diastolic congestive heart failure. Continue Lasix drip and daily electrolytes and I's and O's. 2.Sinus bradycardia. Patient was taken off Bystolic. Cardiology requested for evaluation of bradyc ardia. 3.Chronic kidney disease stage 3, likely patient has underlying benign nephrosclerosis. Re-evaluate renal ultrasound and check urinalysis to rule out any evidence of nephritis. 4.Fluid overload. Lasix drip was started. Patient may need a close monitoring for possible hypomag nesemia and hypokalemia. Patient may be a candidate for spironolactone as needed. 5.Osteoarthritis. Avoid nonsteroidal anti-inflammatory medication. 6.Lymphedema, on Lasix drip currently for fluid overload. 7.Hypothyroidism. Check TSH level. EB/MODL Voice ID: [id number] Report ID: [id number]
[2023-04-26] MEDS: LEVOTHYROXINE SOD 0.112 MG TAB PO SCH (07:56)
[2023-04-26] MEDS: AMIODARONE HCL 200 MG TAB PO SCH (08:02)
--- NOTE | 2023-04-26 08:24 | RAD REPORT ---
EXAM DESCRIPTION: US - Renal Ultrasound-Complete - 04/26/2023 12:38 am CLINICAL HISTORY: [email or web address] , [id number] COMPARISON: Abdomen Pelvis Wo Contrast dated 01/13/2023; Urinary Bladder dated 04/26/2023; Pelvis Co mplete dated 04/26/2023; Renal Ultrasound-Complete dated 01/04/2021 TECHNIQUE: Sonographic grayscale and color flow images of the kidneys were obtained. FINDINGS: Both kidneys are normal in size, shape and echotexture. Mild cortical thinning on the left . The right kidney measures 9.7 cm in length. No hydronephrosis, focal mass or perinephric fluid. Small exophytic anechoic superior pole thin-walled 1.1 cm cyst. The left kidney measures 10.2 cm in length. No hydronephrosis, focal solid mass or perinephric fluid. Parapelvic 1.5 cm hypoattenuating lesion suggestive of cyst with possible marginal calcification. Adjacent mild hyper echogenicities in the left lower pole, up to 3 millimeter, suggestive of small ca lculi. IMPRESSION: Mild left renal cortical thinning, suggestive of medical renal disease. Bilateral hypoattenuating lesions, suggestive of small cysts. Given the depth of the left renal findi ng, appearance is not definitively characteristic of a cyst. Consider short-term interval sonographic follow-up in 6 months. Suspected tiny left renal calculi. No hydronephrosis.
--- NOTE | 2023-04-26 08:26 | RAD REPORT ---
EXAM DESCRIPTION: US - Pelvis Complete - 04/26/2023 12:38 am CLINICAL HISTORY: RETENTION OF URINE. COMPARISON: Pelvis Complete dated 06/25/2019 TECHNIQUE: Sonographic grayscale and color flow images of the pelvis were obtained through transab dominal approach. FINDINGS: The uterus was surgically removed. No suspicious masses or fluid collections in the pelvis. Both ovaries are are not visualized, could be surgically removed, or obscured by over shadowing bowel . No suspicious adnexal masses. No significant pelvic ascites. IMPRESSION: Status post hysterectomy and possible oophorectomies. No suspicious adnexal masses, free fluid, or abnormal pelvic collections.
--- NOTE | 2023-04-26 08:27 | RAD REPORT ---
EXAM DESCRIPTION: US - Urinary Bladder - 04/26/2023 12:38 am CLINICAL HISTORY: CKD. CHECK FOR POST VOID RESIDUAL. COMPARISON: Renal Ultrasound-Complete dated 04/25/2023 TECHNIQUE: Real-time sonographic evaluation of the urinary bladder with pre and postvoid volume oz urements was performed. FINDINGS: Prevoid bladder volume: 346.5 mL. No focal masses. No appreciable wall thickening. No echo genic calculi. Postvoid volume: 222. 18 mL. The right ureteral jet was visualized. IMPRESSION: [id number] postvoid residual as above.
[2023-04-26] MEDS: MAGNESIUM CITRATE AND OXIDE 250 MG PO SCH ×2 (09:23→20:42)
[2023-04-26] MEDS: ursodioL 300 MG CAP PO SCH ×2 (09:25→20:40)
[2023-04-26] MEDS: LIOTHYRONINE SOD 5 MCG TAB PO SCH (09:25)
[2023-04-26] MEDS: METHENAMINE HIPPURATE 1 GM PO SCH ×2 (09:25→20:42)
[2023-04-26] MEDS: MONTELUKAST 10 MG TAB PO SCH (09:26)
[2023-04-26] MEDS: PANTOPRAZOLE 40MG TABLET PO SCH (09:26)
[2023-04-26] MEDS: POTASSIUM CL SA 10 MEQ TAB PO SCH (09:26)
[2023-04-26] MEDS: GABAPENTIN 300 MG CAP PO SCH ×3 (09:26→20:41)
[2023-04-26] MEDS: GABAPENTIN 100 MG CAP PO SCH ×3 (09:26→20:41)
[2023-04-26] MEDS: LOSARTAN POTASSIUM 50 MG TABLET PO SCH (09:27)
[2023-04-26] MEDS: MEMANTINE HCL 10 MG TABLET PO SCH ×2 (09:27→20:40)
[2023-04-26] MEDS: HYDRALAZINE HCL 25 MG TABLET PO SCH ×3 (09:28→20:40)
[2023-04-26] MEDS: guaiFENesin 100 MG/5 ML UCUP PO PRN (09:31)
--- NOTE | 2023-04-26 12:54 | P.PN ---
Subjective Date of Service: 04/26/23 Chief Complaint: STRONGER Subjective: Improving SHE FEELS STRONGER, COUGH ALL NIGHT. Review of Systems 10-point ROS is otherwise unremarkable Physical Examination - Vital Signs Temperature: 97.4 F Blood Pressure: 142/35 Pulse: 40 Respirations: 12 Pulse Ox (%): 97 - Physical Exam General: Oriented x3, Mild distress HEENT: Atraumatic, PERRLA, EOMI Neck: Supple, JVD not distended Respiratory: Clear to auscultation bilaterally, Normal air movement Cardiovascular: Regular rate/rhythm, Normal S1 S2 Gastrointestinal: Normal bowel sounds, No tenderness Musculoskeletal: No tenderness Integumentary: No rashes Neurological: Normal speech, Normal tone, Normal affect Lymphatics: No axilla or inguinal lymphadenopathy - Studies Microbiology Data (last 24 hrs): 04/24/23 22:00 Clean Catch Urine [place] Count - Final <10,000 CFU/ML. 04/24/23 22:00 Clean Catch Urine - Final MIXED DEVYN. Medications List Reviewed: Yes Assessment And Plan - Current Problems (Diagnosis) (1) Acute on chronic diastolic heart failure Current Visit: Yes Status: Acute Plan: LASIX DRIP DAILY LAB CARD AND NEPH CONSULTED. MEDS ARE WORKING WELL CREAT IS DOWN UNFORTUNATELY SHE DOES NOT DO WELL AT HOME DESPITE BEING ON DIURETICS. SHE GOES INTO RENAL FAILURE WITH ANY HIGH DOSE. (2) Sinus bradycardia Current Visit: Yes Status: Acute Plan: STOP BYSTOLIC HOLD AMIO FOR A FEW DAYS. (3) General weakness Current Visit: Yes Status: Acute (4) CKD (chronic kidney disease) stage 3, GFR 30-59 ml/min Current Visit: Yes Status: Chronic Plan: DAILY LAB. I AM SURE HER CREAT WILL START GOING HIGHER CHECK PVR.
[2023-04-26 14:05] LABS: Specific Gravity 1.008 (1.005-1.030); Urine Bacteria None Seen /HPF (<20); Urine Bilirubin NEGATIVE (Negative); Urine Blood Negative (Negative); Urine Clarity Clear (Clear); Urine Color Colorless (Yellow); Urine Glucose NEGATIVE (Negative); Urine Mucus Slight /HPF (None Seen); Urine Protein NEGATIVE (Negative); Urine RBC <5 /HPF (None Seen); Urine Urobilinogen Normal (Normal); Urine pH 5.5 (5.0-7.0)
[2023-04-26 14:32] LABS: UR PROTEIN 9.8 mg/dL (<11.9)
[2023-04-26 14:35] LABS: UR CREAT < 18.0 mg/dL (20-320)
--- NOTE | 2023-04-26 14:53 | PN ---
Date of Progress Note: 04/26/2023 Subjective: Seen by bedside. She is doing clinically better. Shortness of breath has improved. Review of Systems: Mild orthopnea and shortness of breath on exertion. No nausea, vomiting, or diarrhea. No abdominal pain. No dysuria, polyuria, or urinary urgency. No skin rash or headache. All other systems review ed, they were negative. Objective: Vital Signs: Reviewed. Head and Neck: Pupils are equal, reactive to light. Intact eye movements. No cervical lymphadenopa thy. Neck is supple. Thyroid is not enlarged. Lungs: Clear to auscultation bilaterally. No rhonchi, wheezing, or crackles. No accessory muscle u se. Heart: Regular rate and rhythm. No extra sounds. Abdomen: Soft, nontender. Bowel sounds positive. No organomegaly. No masses or hernia. No rigidi ty or rebound. Extremities: No clubbing or cyanosis. Positive edema. Neurologic: Alert, awake, oriented x3. No acute focal deficits associated. Investigations: BUN 35, creatinine 1.38, and cardiac enzymes are negative. Hemoglobin is 10.3. Assessment And Recommendations: 1.Acute on chronic diastolic heart failure exacerbation, improved nicely. I recommend to switch to oral Lasix and transfer to the floor and preparation for discharge within next 24 hours. She appears to be doing much better. 2.Atrial fibrillation, now she is in sinus bradycardia. Bystolic was stopped and we will monitor. She is maintaining very good blood pressure with this slow heart rate. I do not believe it is part o f her symptoms and this patient had left atrial appendage closure, so she will need only baby aspirin . 3.Hypertension. Blood pressure is borderline. Continue current management. SR/MODL Voice ID: [id number] Report ID: [id number]
--- NOTE | 2023-04-26 15:35 | PN ---
Date of Progress Note: 04/26/2023 Subjective: The patient has been doing better. The patient was admitted with acute kidney injury an d anasarca. The patient was started on Lasix drip. Physical Examination: Vital Signs: When I saw the patient; blood pressure 142/35, pulse of 40, afebrile. The patient had urine output of 200 per hour. Chest: Crackles bilateral base. Heart: S1, S2. Systolic murmur. Abdomen: Soft, nontender. Extremities: +2 edema. Neurologic: Alert. No focality. Laboratory Data: Hemoglobin 10.3. Sodium 146, potassium 3.6, bicarb 34, BUN 35, creatinine down to 1.3, GFR of 38, calcium 8.6, phosphorus 4.3, albumin of 3. Corrected calcium is 9.4. Renal ultrasou nd; normal size kidney 9.7 and 10.2 with cyst on the left side. Current Medications: Include; 1.Lasix drip. 2.Losartan 100. 3.Gabapentin. 4.Namenda. 5.Ursodiol. 6.Pantoprazole. 7.KCl. Assessment And Plan: 1.Acute kidney injury on chronic kidney disease with anasarca. The acute kidney injury is secondary to cardiorenal. The patient responding very well to current dose of Lasix. The patient still on po sitive urine output. The patient is still over volume. I am going to continue Lasix drip for anothe r night and then we are going to consider to switch her to p.o./pulse Lasix and we will follow up. 2.Hypertension, controlled. We will utilize blood pressure for more diuresis. We will continue cur rent medication. 3.Congestive heart failure with exacerbation, preserved ejection fraction as by echocardiogram was d one back in January with ejection fraction of 71, with mild pulmonary insufficiency and diastolic diseas e function. We are going to continue to optimize fluid status. We will follow up with Cardiology. 4.Bradycardia as by Cardiology. DESTINY/JERSEY Voice ID: [id number] Report ID: [id number]
[2023-04-26] MEDS: ENOXAPARIN 30 MG/0.3 ML SQ SCH (16:54)
[2023-04-26] MEDS: CRESTOR 5 MG PO SCH (20:41)
[2023-04-26] MEDS: ACETAMINOPHEN 500 MG TAB PO PRN (21:20)
[2023-04-27] MEDS: guaiFENesin 100 MG/5 ML UCUP PO PRN (03:03)
[2023-04-27 05:16] VITALS: BMI 27.4
[2023-04-27] MEDS: LEVOTHYROXINE SOD 0.112 MG TAB PO SCH (06:21)
--- NOTE | 2023-04-27 08:31 | RAD REPORT ---
EXAM DESCRIPTION: RADChest Single View04/27/2023 5:16 am CLINICAL HISTORY: Fluid Overload COMPARISON: Chest Single View dated 04/24/2023; Chest Pa And Lat (2 Views) dated 04/14/2023; Chest Sin gle View dated 02/04/2023; Chest Single View dated 01/13/2023 TECHNIQUE: Portable AP view of the chest. FINDINGS: No pneumothorax. Stable moderate left pleural effusion with underlying airspace opacificat ion. Progressive central interstitial prominence and perihilar fluffy opacities. Patient rotation daniela ewhat limits evaluation. . The cardiomediastinal contours are unremarkable. IMPRESSION: Progressive central edema. Stable moderate left pleural effusion with underlying airspac e opacity, which could reflect atelectasis or superimposed pneumonia.
[2023-04-27] MEDS: FUROSEMIDE 100 MG in NA CHLORIDE 0.9% 90 ML IV SCH (09:00)
[2023-04-27 09:10] LABS: Absolute Lymphocytes (CBC) 0.7 K/uL (0.7-4.9); Hematocrit 31.2 % (36.0-45.0); Lymphocytes % 11.5 % (15.3-44.8); MCV 92.6 fL (80-100); MPV 9.5 fL (7.6-11.3); Platelets 149 thou/uL (152-406); RBC Red Blood Cell Count 3.37 M/uL (3.86-4.86)
[2023-04-27 09:31] LABS: Albumin 2.9 g/dL (3.4-5.0); Bilirubin Total 0.5 mg/dL (0.2-1.0); Potassium 3.2 mEq/L (3.5-5.1); Protein, Total 5.9 g/dL (6.4-8.2)
[2023-04-27] MEDS: PANTOPRAZOLE 40MG TABLET PO SCH (09:32)
[2023-04-27] MEDS: MONTELUKAST 10 MG TAB PO SCH (09:32)
[2023-04-27] MEDS: GABAPENTIN 100 MG CAP PO SCH ×3 (09:32→20:19)
[2023-04-27] MEDS: MEMANTINE HCL 10 MG TABLET PO SCH ×2 (09:33→20:18)
[2023-04-27] MEDS: ursodioL 300 MG CAP PO SCH ×2 (09:33→20:18)
[2023-04-27] MEDS: LOSARTAN POTASSIUM 50 MG TABLET PO SCH (09:33)
[2023-04-27] MEDS: LIOTHYRONINE SOD 5 MCG TAB PO SCH (09:33)
[2023-04-27] MEDS: HYDRALAZINE HCL 25 MG TABLET PO SCH ×3 (09:33→20:19)
[2023-04-27] MEDS: POTASSIUM CL SA 10 MEQ TAB PO SCH (09:33)
[2023-04-27] MEDS: GABAPENTIN 300 MG CAP PO SCH ×3 (09:33→20:19)
[2023-04-27] MEDS: MAGNESIUM CITRATE AND OXIDE 250 MG PO SCH ×2 (09:34→20:16)
[2023-04-27] MEDS: METHENAMINE HIPPURATE 1 GM PO SCH ×2 (09:34→20:17)
[2023-04-27] MEDS ORDERED: POTASSIUM CL SA 10 MEQ TAB PO ONE (10:59)
[2023-04-27] MEDS: SPIRONOLACTONE 25 MG TABLET PO SCH (11:19)
--- NOTE | 2023-04-27 12:51 | PN ---
Date of Progress Note: 04/27/2023 Subjective: Patient was admitted to the hospital with the acute kidney injury secondary to cardioren al, overvolume. Patient being on Lasix drip. Tolerated the diuresis very well. Her blood pressure stayed stable. Physical Examination: Vital Signs: Blood pressure 151/40, pulse of 44, afebrile. Patient had good urine output of 4800, n egative of 3400. Chest: Crackles bilateral, but better than before. Patient still has pleural effusion. Heart: S1, S2. Systolic murmur. Bradycardic. Abdomen: Soft, nontender. Extremity: +1 edema. Neurologic: Alert. No focality. Laboratory Data: Hemoglobin 10.4, sodium 145, potassium 3.2, bicarb 41, BUN 40, creatinine 1.5, calc ium 8.4, albumin 2.9, corrected calcium 9.2. Current Medications: The patient on, includes: 1.Lovenox. 2.Hydralazine 25 t.i.d. 3.Losartan 100 daily. 4.Gabapentin. 5.Namenda. 6.Pantoprazole. 7.Lasix drip. 8.Levothyroxine. 9.KCl. 10.Singular. Assessment And Plan: 1.Acute kidney injury secondary to cardiorenal. Patient is still on the overvolume side. Blood pre ssure is still stable. I am going to go ahead and switch the patient to bolus Lasix. We will give h er 80 every 8 hours and we will monitor the patient. 2.With the presence of hypokalemia, I am going to add spironolactone and we will follow up. We will supplement. 3.Hypertension, controlled, optimal. We will continue to utilize blood pressure for more diuresis. 4.Congestive heart failure, diastolic dysfunction. Follow up with Cardiology. We will optimize flu id status. 5.Anasarca secondary to renal failure. TSH within normal limits. No significant proteinuria, mostl y secondary to renal failure/cardiorenal. We will optimize fluid status as above. MA/MODL Voice ID: [id number] Report ID: [id number]
[2023-04-27] MEDS: ENOXAPARIN 30 MG/0.3 ML SQ SCH (16:14)
--- NOTE | 2023-04-27 16:57 | PN ---
Date of Progress Note: 04/27/2023 Subjective: Seen by bedside. She is doing clinically well. Review of Systems: No shortness of breath. No nausea, vomiting, diarrhea. No dysuria, polyuria, or urinary urgency. N o skin rash, headache. All other systems reviewed and they were negative. Physical Examination: Vital Signs: Reviewed. Head and Neck: Pupils are equal, reactive to light. Intact eye movements. No JVD. No cervical lym phadenopathy. Neck is supple. Thyroid is not enlarged. Lungs: Clear to auscultation bilaterally. No rhonchi, wheezing, or crackles. No accessory muscle u se. Heart: Regular rate and rhythm. No extra sounds. Abdomen: Soft, nontender. Bowel sounds positive. No organomegaly. No masses or hernia. No rigidi ty or rebound. Extremities: No clubbing or cyanosis. Intact pulses. Skin: No rash. Neurologic: Alert, awake, oriented x3. No acute focal deficits appreciated. Lymph Nodes: No cervical or axillary lymphadenopathy. Investigations: BUN is 40, creatinine is 1.56. Assessment And Recommendations: 1.Acute on chronic diastolic heart failure exacerbation. Off the Lasix drip. BUN and creatinine ar e increasing and she appears to be euvolemic. I will discontinue the IV Lasix and start her on p.o. Lasix 40 mg by mouth twice a day and carefully monitor BUN, creatinine and electrolytes on a daily ba sis. Continue Aldactone for now. 2.Severe bradycardia, likely due to medications. Her heart rate was in the mid 50s today and she cunningham s no dizziness. We will monitor her for next 2 to 3 days. If she continues to be bradycardic, espec ially if symptomatic, then we will consider pacemaker implantation. 3.Acute renal failure due to congestive heart failure and it is improved and now BUN and creatinine are going up again. We will discontinue IV Lasix and put her on Lasix by mouth 40 mg twice a day. SR/MODL Voice ID: [id number] Report ID: [id number]
[2023-04-27] MEDS ORDERED: FUROSEMIDE 40 MG/4 ML VIAL IV SCH (17:00)
--- NOTE | 2023-04-27 17:53 | P.PN ---
Subjective Date of Service: 04/27/23 Chief Complaint: STRONGER Subjective: Improving SHE FEELS STRONGER, COUGH ALL NIGHT. SHE IS LOT BETTER. DOES NOT WANT PACEMAKER SHE MAY GO HOME AND COME BACK LIKE SHE HAS DONE A FEW TIMES. Review of Systems 10-point ROS is otherwise unremarkable General: Weakness, As per HPI Physical Examination - Vital Signs Temperature: 96.3 F Blood Pressure: 151/40 Pulse: 43 Respirations: 15 Pulse Ox (%): 96 - Physical Exam General: Oriented x3, Mild distress, Other (WEAK) HEENT: Atraumatic, PERRLA, EOMI Neck: Supple, JVD not distended Respiratory: Clear to auscultation bilaterally, Normal air movement Cardiovascular: Regular rate/rhythm, Normal S1 S2 Gastrointestinal: Normal bowel sounds, No tenderness Musculoskeletal: No tenderness Integumentary: No rashes Neurological: Normal speech, Normal tone, Normal affect Lymphatics: No axilla or inguinal lymphadenopathy - Studies Medications List Reviewed: Yes Assessment And Plan - Current Problems (Diagnosis) (1) Acute on chronic diastolic heart failure Current Visit: Yes Status: Acute Plan: LASIX ORAL NOW. PT CONSULTED NEED FLOOR BED. (2) Sinus bradycardia Current Visit: Yes Status: Acute Plan: STOP BYSTOLIC HOLD AMIO FOR A FEW DAYS. REFUSES TO DO PACEMAKER. (3) General weakness Current Visit: Yes Status: Acute (4) CKD (chronic kidney disease) stage 3, GFR 30-59 ml/min Current Visit: Yes Status: Chronic Plan: DAILY LAB. I AM SURE HER CREAT WILL START GOING HIGHER CHECK PVR.
[2023-04-27] MEDS: CRESTOR 5 MG PO SCH (20:17)
[2023-04-28] MEDS: ACETAMINOPHEN 500 MG TAB PO PRN (02:14)
[2023-04-28 03:13] LABS: Hematocrit 31.5 % (36.0-45.0); Lymphocytes % 11.6 % (15.3-44.8); MCV 91.1 fL (80-100); MPV 9.7 fL (7.6-11.3); Platelets 177 thou/uL (152-406); RBC Red Blood Cell Count 3.46 M/uL (3.86-4.86)
[2023-04-28 03:40] LABS: Albumin 2.8 g/dL (3.4-5.0); Bilirubin Total 0.5 mg/dL (0.2-1.0); Magnesium 1.8 mg/dL (1.6-2.4); Potassium 3.8 mEq/L (3.5-5.1); Protein, Total 6.1 g/dL (6.4-8.2)
[2023-04-28] MEDS: LEVOTHYROXINE SOD 0.112 MG TAB PO SCH (05:07)
[2023-04-28] MEDS: POTASSIUM CL SA 10 MEQ TAB PO SCH (09:19)
[2023-04-28] MEDS: PANTOPRAZOLE 40MG TABLET PO SCH (09:19)
[2023-04-28] MEDS: FUROSEMIDE 40 MG TABLET PO SCH ×2 (09:19→17:48)
[2023-04-28] MEDS: MEMANTINE HCL 10 MG TABLET PO SCH ×2 (09:20→20:38)
[2023-04-28] MEDS: LOSARTAN POTASSIUM 50 MG TABLET PO SCH (09:20)
[2023-04-28] MEDS: SPIRONOLACTONE 25 MG TABLET PO SCH (09:20)
[2023-04-28] MEDS: LIOTHYRONINE SOD 5 MCG TAB PO SCH (09:20)
[2023-04-28] MEDS: GABAPENTIN 100 MG CAP PO SCH (09:20)
[2023-04-28] MEDS: GABAPENTIN 300 MG CAP PO SCH (09:20)
[2023-04-28] MEDS: HYDRALAZINE HCL 25 MG TABLET PO SCH ×3 (09:20→21:10)
[2023-04-28] MEDS: MONTELUKAST 10 MG TAB PO SCH (09:20)
[2023-04-28] MEDS: METHENAMINE HIPPURATE 1 GM PO SCH ×2 (09:21→20:41)
[2023-04-28] MEDS: MAGNESIUM CITRATE AND OXIDE 250 MG PO SCH ×2 (09:21→20:40)
[2023-04-28] MEDS: ursodioL 300 MG CAP PO SCH ×2 (10:04→21:00)
[2023-04-28] MEDS: PREGABALIN 150 MG CAP PO SCH ×2 (13:06→20:39)
[2023-04-28] MEDS: ENOXAPARIN 30 MG/0.3 ML SQ SCH (17:48)
--- NOTE | 2023-04-28 19:05 | PN ---
Date of Progress Note: 04/28/2023 Subjective: Seen by bedside. Doing clinically well. No dizziness, shortness of breath, but general ly is weak. Review of Systems: No nausea, vomiting, or diarrhea. No abdominal pain. No dysuria, polyuria, or urinary urgency. No skin rash or headache. All other systems reviewed and they were negative. Objective: Vital Signs: Reviewed. Head and Neck: Pupils are equal, reactive to light. Intact eye movements. No JVD. No cervical lym phadenopathy. Neck is supple. Thyroid is not enlarged. Lungs: Clear to auscultation bilaterally. No rhonchi, wheezing, or crackles. No accessory muscle u se. Heart: Regular rate and rhythm. No extra sounds. Abdomen: Soft, nontender. Bowel sounds positive. No organomegaly. No masses or hernia. No rigidi ty or rebound. Extremities: No edema, clubbing, or cyanosis. Intact pulses. Skin: No rash. No nodule. Neurologic: Alert, awake, oriented x3. No acute focal deficits appreciated. Investigations: BUN 40, creatinine 1.48, and hemoglobin is 10.7. Assessment And Recommendations: 1.Acute on chronic diastolic heart failure exacerbation. She appears to be doing much better. Cont inue Lasix 40 mg twice a day by mouth. 2.Bradycardia, medication induced and now heart rate is up in the mid 70s. Might need to reintroduc e a small dose of beta-kevon if she goes into a fast rate. This lady is status post appendage clos ure, so she needs only baby aspirin 81 mg daily for stroke prevention. 3.Acute on chronic renal failure and this is stabilized. She is around her baseline. SR/MODL Voice ID: [id number] Report ID: [id number]
[2023-04-28] MEDS: CRESTOR 5 MG PO SCH (20:41)
--- NOTE | 2023-04-28 21:18 | P.PN ---
Subjective Date of Service: 04/28/23 Chief Complaint: STRONGER Subjective: Improving SHE FEELS STRONGER, COUGH ALL NIGHT. SHE IS LOT BETTER. DOES NOT WANT PACEMAKER SHE MAY GO HOME AND COME BACK LIKE SHE HAS DONE A FEW TIMES. SHE IS WEAK AND NEEDS PT SHE LIVES ALONE. SHE COMES BACK TO ER HER FLUID BALANCE BETWEEN CHF AND CKD IS VERY BRITTLE. Review of Systems 10-point ROS is otherwise unremarkable Physical Examination - Vital Signs Temperature: 96.7 F Blood Pressure: 147/71 Pulse: 74 Respirations: 16 Pulse Ox (%): 100 - Physical Exam General: Cooperative, Mild distress HEENT: Atraumatic, PERRLA, EOMI Neck: Supple, JVD not distended Respiratory: Clear to auscultation bilaterally, Normal air movement Cardiovascular: Regular rate/rhythm, Normal S1 S2 Gastrointestinal: Normal bowel sounds, No tenderness Musculoskeletal: No tenderness Integumentary: No rashes Neurological: Normal speech, Normal tone, Normal affect Lymphatics: No axilla or inguinal lymphadenopathy - Studies Medications List Reviewed: Yes Assessment And Plan - Current Problems (Diagnosis) (1) Acute on chronic diastolic heart failure Current Visit: Yes Status: Acute Plan: LASIX ORAL NOW. PT CONSULTED NEED FLOOR BED. HPI IT IS VERY DIFFICULT TO HAVE GOOD CONTROL OVER HER CHF SHE STARTS GETTING RENAL FAILURE WITH SAME DOSE OF DIURETICS. (2) Sinus bradycardia Current Visit: Yes Status: Acute Plan: STOP BYSTOLIC HOLD AMIO FOR A FEW DAYS. REFUSES TO DO PACEMAKER. (3) General weakness Current Visit: Yes Status: Acute (4) CKD (chronic kidney disease) stage 3, GFR 30-59 ml/min Current Visit: Yes Status: Chronic Plan: DAILY LAB. I AM SURE HER CREAT WILL START GOING HIGHER CHECK PVR.
--- NOTE | 2023-04-29 00:56 | PN ---
Date of Progress Note: 04/28/2023 Chief Complaint: Acute on chronic kidney injury. Subjective: The patient presented to the hospital because of generalized weakness, fluid overload, s hortness of breath. She was admitted to ICU and was started on Lasix drip. The patient has history of diastolic congestive heart failure. On presentation to the hospital, she was found to have conges tive heart failure exacerbation, anasarca, and prerenal azotemia with cardiorenal syndrome, or worsen ing of the renal function. The patient has accelerated hypertension and was treated with multiple bl ood pressure medications. Patient responded to diuretics and anasarca has improved. Review of Systems: Patient is feeling better. Physical Examination: Lungs: Clear to auscultation bilaterally. Heart: S1, S2. Abdomen: Soft. Extremities: Slight edema. Impression And Plan: 1.Acute on chronic kidney injury secondary to cardiorenal syndrome. The patient responded to diuret ics. Adjust dose to current volemia and wean patient off Lasix drip. 2.Sinus bradycardia. Patient was taken off Bystolic. Monitor heart rate and patient currently is o n telemetry unit. 3.Chronic kidney disease stage 3. The patient has underlying benign nephrosclerosis. Renal ultraso und was done to rule out any evidence of obstructive uropathy. Monitor urinalysis to evaluate for po ssible nephritis. 4.Fluid overload. Continue low-sodium diet. Possible hypomagnesemia. Monitor electrolytes. 5.Lymphedema. Lasix was started with drip. Adjust dose to maintenance dose with tablet. EB/MODL Voice ID: [id number] Report ID: [id number]
[2023-04-29 03:16] LABS: Hematocrit 29.8 % (36.0-45.0); MCV 90.9 fL (80-100); MPV 9.8 fL (7.6-11.3); Platelets 157 thou/uL (152-406); RBC Red Blood Cell Count 3.28 M/uL (3.86-4.86)
[2023-04-29 03:43] LABS: Albumin 2.8 g/dL (3.4-5.0); Bilirubin Total 0.4 mg/dL (0.2-1.0); Magnesium 2.1 mg/dL (1.6-2.4); Potassium 3.8 mEq/L (3.5-5.1); Protein, Total 5.9 g/dL (6.4-8.2)
[2023-04-29] MEDS: LEVOTHYROXINE SOD 0.112 MG TAB PO SCH (06:04)
[2023-04-29] MEDS: ursodioL 300 MG CAP PO SCH ×2 (09:00→21:00)
[2023-04-29] MEDS: MEMANTINE HCL 10 MG TABLET PO SCH ×2 (11:00→22:14)
[2023-04-29] MEDS: POTASSIUM CL SA 10 MEQ TAB PO SCH (11:00)
[2023-04-29] MEDS: HYDRALAZINE HCL 25 MG TABLET PO SCH ×3 (11:01→22:14)
[2023-04-29] MEDS: PANTOPRAZOLE 40MG TABLET PO SCH (11:01)
[2023-04-29] MEDS: PREGABALIN 150 MG CAP PO SCH ×2 (11:01→22:14)
[2023-04-29] MEDS: LIOTHYRONINE SOD 5 MCG TAB PO SCH (11:02)
[2023-04-29] MEDS: SPIRONOLACTONE 25 MG TABLET PO SCH (11:02)
[2023-04-29] MEDS: MONTELUKAST 10 MG TAB PO SCH (11:02)
[2023-04-29] MEDS: LOSARTAN POTASSIUM 50 MG TABLET PO SCH (11:03)
[2023-04-29] MEDS: FUROSEMIDE 40 MG TABLET PO SCH (11:03)
[2023-04-29] MEDS: MAGNESIUM CITRATE AND OXIDE 250 MG PO SCH ×2 (11:05→22:17)
[2023-04-29] MEDS: METHENAMINE HIPPURATE 1 GM PO SCH ×2 (11:05→21:00)
--- NOTE | 2023-04-29 13:04 | P.PN ---
Subjective Date of Service: 04/29/23 Chief Complaint: STRONGER Subjective: No new changes Physical Examination - Vital Signs Temperature: 96.3 F Blood Pressure: 148/48 Pulse: 46 Respirations: 18 Pulse Ox (%): 100 - Physical Exam General: Other (chronically ill-appearing) HEENT: Atraumatic, Normocephalic Neck: Supple, JVD not distended Respiratory: Other (symmetric chest expansion) Cardiovascular: No rubs, No murmurs Gastrointestinal: Soft and benign Musculoskeletal: No clubbing Integumentary: No warmth Neurological: Normal tone Urinary: Other (no bladder distention) External genitalia: Deferred Rectal: Deferred - Studies Medications List Reviewed: Yes Assessment And Plan - Plan 1. Acute on chronic kidney injury secondary to cardiorenal syndrome. The patient responded to diuretics. Off Lasix drip. [place] po fluid intake. 2. Sinus bradycardia. Patient was taken off Bystolic. Monitor heart rate and patient currently is on telemetry unit. 3. Chronic kidney disease stage 3. The patient has underlying benign nephrosclerosis. Renal ultrasound was done to rule out any evidence of obstructive uropathy. Monitor urinalysis to evaluate for possible nephritis. 4. Fluid overload. Continue low-sodium diet. Possible hypomagnesemia. Monitor electrolytes. 5. Lymphedema. On PO lasix.
--- NOTE | 2023-04-29 13:26 | P.PN ---
Subjective Date of Service: 04/29/23 Chief Complaint: STRONGER Subjective: Improving SHE IS WEAK AND NEEDS PT SHE LIVES ALONE. SHE COMES BACK TO ER HER FLUID BALANCE BETWEEN CHF AND CKD IS VERY BRITTLE. ABOVE FEELS LOT BETTER. Review of Systems 10-point ROS is otherwise unremarkable General: Weakness Physical Examination - Vital Signs Temperature: 96.3 F Blood Pressure: 148/48 Pulse: 46 Respirations: 18 Pulse Ox (%): 100 - Physical Exam General: Oriented x3, Mild distress, Other (WALKS WITH WALKER.) HEENT: Atraumatic, PERRLA, EOMI Neck: Supple, JVD not distended Respiratory: Clear to auscultation bilaterally, Normal air movement Cardiovascular: Regular rate/rhythm, Normal S1 S2 Gastrointestinal: Normal bowel sounds, No tenderness Musculoskeletal: No tenderness Integumentary: No rashes Neurological: Normal speech, Normal tone, Normal affect Lymphatics: No axilla or inguinal lymphadenopathy - Studies Medications List Reviewed: Yes Assessment And Plan - Current Problems (Diagnosis) (1) Acute on chronic diastolic heart failure Current Visit: Yes Status: Acute Plan: LASIX ORAL NOW. PT CONSULTED NEED FLOOR BED. HPI IT IS VERY DIFFICULT TO HAVE GOOD CONTROL OVER HER CHF SHE STARTS GETTING RENAL FAILURE WITH SAME DOSE OF DIURETICS. REDUCE LASIX DOSE. CREAT IS HIGHER WILL WATCH DAILY. BP STABLE SHE WANTS TO GO TO [facility]AK[facility], REHAB. (2) Sinus bradycardia Current Visit: Yes Status: Acute Plan: STOP BYSTOLIC HOLD AMIO FOR A FEW DAYS. REFUSES TO DO PACEMAKER. (3) General weakness Current Visit: Yes Status: Acute (4) CKD (chronic kidney disease) stage 3, GFR 30-59 ml/min Current Visit: Yes Status: Chronic Plan: DAILY LAB. I AM SURE HER CREAT WILL START GOING HIGHER CHECK PVR.
[2023-04-29] MEDS: ENOXAPARIN 30 MG/0.3 ML SQ SCH (16:58)
--- NOTE | 2023-04-29 18:48 | PN ---
Date of Progress Note: 04/29/2023 Subjective: Seen by bedside. She is doing well. No chest pain. No shortness of breath. Heart rat e has improved. No other complaints. Review of Systems: No chest pain, shortness of breath, orthopnea, cough. No nausea, vomiting, diarrhea. All other syst ems reviewed and they were negative. Physical Examination: Vital Signs: Reviewed. Head and Neck: Pupils are equal, reactive to light. Intact eye movements. No JVD. No cervical lym phadenopathy. Neck is supple. Thyroid is not enlarged. Lungs: Clear to auscultation bilaterally. No rhonchi, wheezing, or crackles. No accessory muscle u se. Heart: Regular rate and rhythm. No extra sounds. Abdomen: Soft, nontender. Bowel sounds positive. No organomegaly. No masses or hernia. No rigidi ty or rebound. Extremities: No edema, clubbing, or cyanosis. Intact pulses. Skin: No rash. Neurologic: Alert, awake, oriented x3. No acute focal deficits appreciated. Investigations: Labs were reviewed. Assessment And Recommendations: 1.Acute on chronic diastolic heart failure exacerbation. She was on Lasix p.o. twice a day 40 mg an d creatinine slightly going up, change it to once a day. 2.Severe bradycardia due to medication and it is getting better. We will continue to monitor. 3.Atrial fibrillation. She is in sinus, status post appendage closure. The patient probably will b enefit best from an inpatient rehab. Cardiology will sign off at this moment and revisit on as-needed basis. SR/MODL Voice ID: [id number] Report ID: [id number]
[2023-04-29] MEDS: CRESTOR 5 MG PO SCH (22:17)
[2023-04-30] MEDS: LEVOTHYROXINE SOD 0.112 MG TAB PO SCH (06:00)
[2023-04-30 07:11] LABS: Hematocrit 29.4 % (36.0-45.0); Lymphocytes % 13.8 % (15.3-44.8); MCV 90.4 fL (80-100); MPV 9.1 fL (7.6-11.3); Platelets 162 thou/uL (152-406); RBC Red Blood Cell Count 3.25 M/uL (3.86-4.86)
[2023-04-30 07:29] LABS: Albumin 2.7 g/dL (3.4-5.0); Bilirubin Total 0.4 mg/dL (0.2-1.0); Magnesium 2.4 mg/dL (1.6-2.4); Potassium 3.8 mEq/L (3.5-5.1); Protein, Total 5.9 g/dL (6.4-8.2)
[2023-04-30] MEDS ORDERED: FUROSEMIDE 40 MG TABLET PO SCH (09:00)
[2023-04-30] MEDS: ursodioL 300 MG CAP PO SCH ×2 (09:00→21:33)
[2023-04-30] MEDS: METHENAMINE HIPPURATE 1 GM PO SCH ×2 (09:15→21:34)
[2023-04-30] MEDS: MAGNESIUM CITRATE AND OXIDE 250 MG PO SCH ×2 (09:15→21:33)
[2023-04-30] MEDS: SPIRONOLACTONE 25 MG TABLET PO SCH (09:16)
[2023-04-30] MEDS: LIOTHYRONINE SOD 5 MCG TAB PO SCH (09:17)
[2023-04-30] MEDS: LOSARTAN POTASSIUM 50 MG TABLET PO SCH (09:17)
[2023-04-30] MEDS: POTASSIUM CL SA 10 MEQ TAB PO SCH (09:17)
[2023-04-30] MEDS: PREGABALIN 150 MG CAP PO SCH ×2 (09:17→21:39)
[2023-04-30] MEDS: MEMANTINE HCL 10 MG TABLET PO SCH ×2 (09:17→21:33)
[2023-04-30] MEDS: PANTOPRAZOLE 40MG TABLET PO SCH (09:17)
[2023-04-30] MEDS: MONTELUKAST 10 MG TAB PO SCH (09:18)
[2023-04-30] MEDS: HYDRALAZINE HCL 25 MG TABLET PO SCH ×3 (09:18→21:34)
--- NOTE | 2023-04-30 09:45 | P.PN ---
Subjective Date of Service: 04/30/23 Chief Complaint: STRONGER Subjective: Improving SHE IS WEAK AND NEEDS PT SHE LIVES ALONE. SHE COMES BACK TO ER HER FLUID BALANCE BETWEEN CHF AND CKD IS VERY BRITTLE. ABOVE FEELS LOT BETTER. SHE IS LOT BETTER. WALKS WITH WALKER. WANTS TO GO TO SNF BUT I AM NOT SURE ABOUT HER BEING ACCEPTED. SHE LIVES ALONE AND ENDS UP HERE EVERY FEW WEEKS WITH SAME ISSUES DIET AND MEDS MAY CHANGE AT HOME WITH POOR COMPLIANCE. Review of Systems 10-point ROS is otherwise unremarkable Physical Examination - Vital Signs Temperature: 96.3 F Blood Pressure: 152/73 Pulse: 45 Respirations: 18 Pulse Ox (%): 100 - Physical Exam General: Oriented x3, Mild distress, Obese HEENT: Atraumatic, PERRLA, EOMI Neck: Supple, JVD not distended Respiratory: Clear to auscultation bilaterally, Normal air movement Cardiovascular: Regular rate/rhythm, Normal S1 S2 Gastrointestinal: Normal bowel sounds, No tenderness Musculoskeletal: No tenderness Integumentary: No rashes Neurological: Normal speech, Normal tone, Normal affect Lymphatics: No axilla or inguinal lymphadenopathy - Studies Microbiology Data (last 24 hrs): 04/24/23 19:45 Blood - Blood Aerobic Blood Culture - Final No growth in 5 days. 04/24/23 19:45 Blood - Blood Anaerobic Blood Culture - Final No growth in 5 days. 04/24/23 20:00 Blood - Blood Aerobic Blood Culture - Final No growth in 5 days. 04/24/23 20:00 Blood - Blood Anaerobic Blood Culture - Final No growth in 5 days. Medications List Reviewed: Yes Assessment And Plan - Current Problems (Diagnosis) (1) Acute on chronic diastolic heart failure Current Visit: Yes Status: Acute Plan: RAISE HYDRALAZINE BP HIGH HR LOW. CHF CONTROLLED WELL. (2) Sinus bradycardia Current Visit: Yes Status: Acute Plan: STOP BYSTOLIC HOLD AMIO FOR A FEW DAYS. REFUSES TO DO PACEMAKER. (3) General weakness Current Visit: Yes Status: Acute (4) CKD (chronic kidney disease) stage 3, GFR 30-59 ml/min Current Visit: Yes Status: Chronic Plan: DAILY LAB. I AM SURE HER CREAT WILL START GOING HIGHER CHECK PVR. CREAT STABLE.
[2023-04-30] MEDS: ENOXAPARIN 30 MG/0.3 ML SQ SCH (17:49)
[2023-04-30] MEDS: CRESTOR 5 MG PO SCH (21:34)
[2023-04-30] MEDS: ACETAMINOPHEN 500 MG TAB PO PRN (21:39)
--- NOTE | 2023-05-01 00:30 | PN ---
Date of Progress Note: 04/30/2023 Chief Complaint: Acute on chronic kidney injury, cardiorenal syndrome, congestive heart failure. Review of Systems: Patient is feeling better. Denies chest pain, palpitation. Denies wheezing, cough, hemoptysis. Physical Examination: General: Patient appears chronically ill. Neck: Supple. Lungs: Clear to auscultation bilaterally. Heart: S1, S2. Abdomen: Soft. Extremities: Slight edema present in both legs. Impression And Plan: 1.Cardiorenal syndrome, acute on chronic kidney injury, nonoliguric. Monitor electrolytes. Patient responded to diuretics, off Lasix drip. Continue p.o. fluid intake. 2.Sinus bradycardia. Patient was taken off Bystolic. Monitor heart rate. Patient is on telemetry unit. 3.Chronic kidney disease stage 3. Patient has underlying benign nephrosclerosis. Renal ultrasound was done to rule out any evidence of obstructive uropathy. Monitor urinalysis to evaluate for possib le nephritis. 4.Fluid overload. Continue low-sodium diet. Possible hypomagnesemia. Monitor electrolytes. 5.Lymphedema. Continue p.o. Lasix. KYM/JERSEY Voice ID: [id number] Report ID: [id number]
[2023-05-01 03:45] LABS: Absolute Lymphocytes (CBC) 0.9 K/uL (0.7-4.9); Hematocrit 29.5 % (36.0-45.0); Lymphocytes % 11.5 % (15.3-44.8); MCV 89.7 fL (80-100); MPV 10.1 fL (7.6-11.3); Platelets 154 thou/uL (152-406); RBC Red Blood Cell Count 3.28 M/uL (3.86-4.86)
[2023-05-01 04:12] LABS: Albumin 2.8 g/dL (3.4-5.0); Bilirubin Total 0.4 mg/dL (0.2-1.0); Magnesium 2.4 mg/dL (1.6-2.4); Potassium 4.1 mEq/L (3.5-5.1); Protein, Total 5.9 g/dL (6.4-8.2)
[2023-05-01] MEDS: LEVOTHYROXINE SOD 0.112 MG TAB PO SCH (06:02)
[2023-05-01] MEDS: PREGABALIN 150 MG CAP PO SCH ×2 (08:35→21:34)
[2023-05-01] MEDS: FUROSEMIDE 40 MG TABLET PO SCH (08:35)
[2023-05-01] MEDS: HYDRALAZINE HCL 25 MG TABLET PO SCH ×3 (08:35→21:34)
[2023-05-01] MEDS: MONTELUKAST 10 MG TAB PO SCH (08:36)
[2023-05-01] MEDS: LIOTHYRONINE SOD 5 MCG TAB PO SCH (08:36)
[2023-05-01] MEDS: PANTOPRAZOLE 40MG TABLET PO SCH (08:36)
[2023-05-01] MEDS: ACETAMINOPHEN 500 MG TAB PO PRN (08:36)
[2023-05-01] MEDS: LOSARTAN POTASSIUM 50 MG TABLET PO SCH (08:36)
[2023-05-01] MEDS: POTASSIUM CL SA 10 MEQ TAB PO SCH (08:36)
[2023-05-01] MEDS: MEMANTINE HCL 10 MG TABLET PO SCH ×2 (08:36→21:35)
[2023-05-01] MEDS: SPIRONOLACTONE 25 MG TABLET PO SCH (08:38)
[2023-05-01] MEDS: MAGNESIUM CITRATE AND OXIDE 250 MG PO SCH ×2 (08:42→21:36)
[2023-05-01] MEDS: METHENAMINE HIPPURATE 1 GM PO SCH ×2 (08:43→21:35)
[2023-05-01] MEDS: ursodioL 300 MG CAP PO SCH ×2 (11:28→21:34)
[2023-05-01] MEDS: ENOXAPARIN 30 MG/0.3 ML SQ SCH (17:00)
--- NOTE | 2023-05-01 17:20 | P.PN ---
Subjective Date of Service: 05/01/23 Chief Complaint: STRONGER Subjective: Improving SHE IS WEAK AND NEEDS PT SHE LIVES ALONE. SHE COMES BACK TO ER HER FLUID BALANCE BETWEEN CHF AND CKD IS VERY BRITTLE. ABOVE FEELS LOT BETTER. SHE IS LOT BETTER. WALKS WITH WALKER. WANTS TO GO TO SNF BUT I AM NOT SURE ABOUT HER BEING ACCEPTED. SHE LIVES ALONE AND ENDS UP HERE EVERY FEW WEEKS WITH SAME ISSUES DIET AND MEDS MAY CHANGE AT HOME WITH POOR COMPLIANCE. SHE FEELS WELL WEAK. DR MILLS IS ARRANGING FOR PPM AT [facility]. Review of Systems 10-point ROS is otherwise unremarkable General: Weakness Physical Examination - Vital Signs Temperature: 97.4 F Blood Pressure: 122/56 Pulse: 45 Respirations: 16 Pulse Ox (%): 98 - Physical Exam General: Oriented x3, Mild distress, Obese HEENT: Atraumatic, PERRLA, EOMI Neck: Supple, JVD not distended Respiratory: Clear to auscultation bilaterally, Normal air movement Cardiovascular: Regular rate/rhythm, Normal S1 S2 Gastrointestinal: Normal bowel sounds, No tenderness Musculoskeletal: No tenderness Integumentary: No rashes Neurological: Normal speech, Normal tone, Normal affect Lymphatics: No axilla or inguinal lymphadenopathy - Studies Medications List Reviewed: Yes Assessment And Plan - Current Problems (Diagnosis) (1) Acute on chronic diastolic heart failure Current Visit: Yes Status: Acute Plan: RAISE HYDRALAZINE BP HIGH HR LOW. CHF CONTROLLED WELL. USUAL SHE IS GOING INTO PRERENAL AZOTEMIA WITH SMALL DOSE OF DIURETIC WE WILL HAVE TO BACK OFF DOSE OF DIURETICS AND SO SOON SHE MAY GO BACK INTO CHF. THIS MAY CHANGE ONCE SHE HAS PACEMAKER. (2) Sinus bradycardia Current Visit: Yes Status: Acute Plan: NOW SHE AGREES FOR PPM AND SHE IS FULL CODE ALSO. SHE WANTS REHAB BUT SHE IS WALKING ALREADY WITH WALKER. (3) General weakness Current Visit: Yes Status: Acute (4) CKD (chronic kidney disease) stage 3, GFR 30-59 ml/min Current Visit: Yes Status: Chronic Plan: DAILY LAB. I AM SURE HER CREAT WILL START GOING HIGHER CHECK PVR. CREAT STABLE.
[2023-05-01] MEDS: CRESTOR 5 MG PO SCH (21:35)
--- NOTE | 2023-05-01 22:59 | PN ---
Date of Progress Note: 05/01/2023 Chief Complaint: Acute kidney injury, fluid overload, anasarca. Subjective: The patient was admitted primarily to ICU. Currently, she is on the telemetry floor. S he denies complaints. Physical Examination: Lungs: Diminished breath at bases. Heart: S1, S2. Abdomen: Soft. Extremities: Slight edema. Impression And Plan: 1.Acute on chronic kidney injury. Continue to monitor electrolytes and renal function. Avoid nephr otoxic medication. 2.Renal osteodystrophy. Monitor phosphorus and calcium level. Monitor 25-hydroxy vitamin D level. . 3.Cardiorenal syndrome; acute on chronic kidney injury, nonoliguric. Monitor electrolytes. The pat ient is off Lasix drip. Continue p.o. fluid intake. 4.Sinus bradycardia. The patient is awaiting a pacemaker. She was taken off Bystolic. 5.Chronic kidney disease stage 3 secondary to benign nephrosclerosis. Renal ultrasound was done and did not show obstructive uropathy. 6.Fluid overload. Continue low-sodium diet. Possible will be evaluated. The patient jose champion need magnesium oxide tablet. EB/MODL Voice ID: [id number] Report ID: [id number]
[2023-05-02 03:27] LABS: Absolute Lymphocytes (CBC) 0.9 K/uL (0.7-4.9); Hematocrit 28.1 % (36.0-45.0); MCV 89.8 fL (80-100); MPV 9.5 fL (7.6-11.3); Platelets 147 thou/uL (152-406); RBC Red Blood Cell Count 3.13 M/uL (3.86-4.86)
[2023-05-02 03:29] LABS: Albumin 2.7 g/dL (3.4-5.0); Bilirubin Total 0.4 mg/dL (0.2-1.0); Magnesium 2.4 mg/dL (1.6-2.4); Potassium 4.6 mEq/L (3.5-5.1); Protein, Total 5.7 g/dL (6.4-8.2)
[2023-05-02] MEDS: LEVOTHYROXINE SOD 0.112 MG TAB PO SCH (05:58)
[2023-05-02] MEDS: MAGNESIUM CITRATE AND OXIDE 250 MG PO SCH ×2 (09:00→21:12)
[2023-05-02] MEDS: METHENAMINE HIPPURATE 1 GM PO SCH ×2 (09:00→21:11)
--- NOTE | 2023-05-02 10:33 | RAD REPORT ---
EXAM DESCRIPTION: USExtrem Venous W Compress Bil05/02/2023 10:15 am CLINICAL HISTORY: Leg swelling COMPARISON: April 15, 2023 FINDINGS: The common femoral, superficial femoral, greater saphenous, popliteal and posterior tibial veins bilaterally are compressible and demonstrate augmentation. Doppler demonstrates good flow. Grayscale, color and spectral analysis performed on all vessels IMPRESSION: No evidence of deep venous thrombosis involving either lower extremity.
[2023-05-02] MEDS: ursodioL 300 MG CAP PO SCH ×2 (11:40→21:10)
[2023-05-02] MEDS: LOSARTAN POTASSIUM 50 MG TABLET PO SCH ×2 (11:41→11:42)
[2023-05-02] MEDS: FUROSEMIDE 40 MG TABLET PO SCH (11:41)
[2023-05-02] MEDS: HYDRALAZINE HCL 25 MG TABLET PO SCH ×3 (11:42→21:00)
[2023-05-02] MEDS: SPIRONOLACTONE 25 MG TABLET PO SCH (11:42)
[2023-05-02] MEDS: PREGABALIN 150 MG CAP PO SCH ×2 (11:42→21:10)
[2023-05-02] MEDS: MONTELUKAST 10 MG TAB PO SCH (11:43)
[2023-05-02] MEDS: MEMANTINE HCL 10 MG TABLET PO SCH ×2 (11:43→21:10)
[2023-05-02] MEDS: PANTOPRAZOLE 40MG TABLET PO SCH (11:43)
[2023-05-02] MEDS: POTASSIUM CL SA 10 MEQ TAB PO SCH (11:45)
[2023-05-02] MEDS: LIOTHYRONINE SOD 5 MCG TAB PO SCH (11:45)
--- NOTE | 2023-05-02 13:06 | P.PN ---
Subjective Date of Service: 05/02/23 Chief Complaint: STRONGER Subjective: Improving SWELLING OF LEGS. NO PAIN NO DYSPNEA GEN WEAK. Review of Systems 10-point ROS is otherwise unremarkable General: Weakness Physical Examination - Vital Signs Temperature: 97.0 F Blood Pressure: 142/57 Pulse: 50 Respirations: 16 Pulse Ox (%): 0 - Physical Exam General: Oriented x3, Mild distress HEENT: Atraumatic, PERRLA, EOMI Neck: Supple, JVD not distended Respiratory: Clear to auscultation bilaterally, Normal air movement Cardiovascular: Regular rate/rhythm, Normal S1 S2, Edema Gastrointestinal: Normal bowel sounds, No tenderness Musculoskeletal: No tenderness Integumentary: No rashes Neurological: Normal speech, Normal tone, Normal affect Lymphatics: No axilla or inguinal lymphadenopathy - Studies Medications List Reviewed: Yes Assessment And Plan - Current Problems (Diagnosis) (1) Acute on chronic diastolic heart failure Current Visit: Yes Status: Acute Plan: RAISE HYDRALAZINE BP HIGH HR LOW. CHF CONTROLLED WELL. USUAL SHE IS GOING INTO PRERENAL AZOTEMIA WITH SMALL DOSE OF DIURETIC WE WILL HAVE TO BACK OFF DOSE OF DIURETICS AND SO SOON SHE MAY GO BACK INTO CHF. THIS MAY CHANGE ONCE SHE HAS PACEMAKER. CONTINUE SMALL DOSE OF DIURETICS WITH ANY HIGHER DOSE SHE STARTS TO HAVE ACUTE ON CHORNIC RENAL FAILURE. (2) Sinus bradycardia Current Visit: Yes Status: Acute Plan: NOW SHE AGREES FOR PPM AND SHE IS FULL CODE ALSO. SHE WANTS REHAB BUT SHE IS WALKING ALREADY WITH WALKER. DR. MILLS IS WORKING ON PPM. (3) General weakness Current Visit: Yes Status: Acute (4) CKD (chronic kidney disease) stage 3, GFR 30-59 ml/min Current Visit: Yes Status: Chronic Plan: DAILY LAB. I AM SURE HER CREAT WILL START GOING HIGHER CHECK PVR. CREAT STABLE.
[2023-05-02] MEDS: ENOXAPARIN 30 MG/0.3 ML SQ SCH (17:00)
[2023-05-02] MEDS: CRESTOR 5 MG PO SCH (21:10)
--- NOTE | 2023-05-03 00:13 | PN ---
Date of Progress Note: 05/02/2023 Subjective: Acute on chronic kidney injury, fluid overload, anasarca, cardiorenal syndrome. Subjective: Patient primarily was admitted to ICU and IV with Lasix was started. Patient responded to Lasix. Urine output has improved. Review of Systems: Denies chest pain, palpitation. Physical Examination: Lungs: Clear to auscultation bilaterally. Heart: S1, S2. Abdomen: Soft. Extremities: Slight edema. Impression And Plan: 1.Acute on chronic kidney injury. Monitor electrolytes and renal function. Avoid nephrotoxic medic ation. 2.Renal osteodystrophy. Monitor phosphorus level and calcium level. Monitor 25-hydroxy vitamin D l evel. 3.Cardiorenal syndrome; acute on chronic kidney injury, nonoliguric. Monitor electrolytes. Patient has been off Lasix. Continue adequate p.o. fluid intake. 4.Sinus bradycardia. She was taken off Bystolic. She is awaiting pacemaker placement. 5.Chronic kidney disease, stage 3 due to benign nephrosclerosis. Renal ultrasound was done and did not show obstructive uropathy, fluid overload. Continue low-sodium diet. Monitor renal panel. EB/MODL Voice ID: [id number] Report ID: [id number]
[2023-05-03] MEDS: LEVOTHYROXINE SOD 0.112 MG TAB PO SCH (05:57)
[2023-05-03 06:25] LABS: Absolute Lymphocytes (CBC) 0.9 K/uL (0.7-4.9); Hematocrit 28.9 % (36.0-45.0); Lymphocytes % 19.8 % (15.3-44.8); MCV 89.3 fL (80-100); MPV 9.3 fL (7.6-11.3); Platelets 143 thou/uL (152-406); RBC Red Blood Cell Count 3.24 M/uL (3.86-4.86)
[2023-05-03 06:44] LABS: Albumin 2.7 g/dL (3.4-5.0); Bilirubin Total 0.3 mg/dL (0.2-1.0); Magnesium 2.6 mg/dL (1.6-2.4); Potassium 5.1 mEq/L (3.5-5.1); Protein, Total 5.7 g/dL (6.4-8.2)
--- NOTE | 2023-05-03 08:06 | P.PN ---
Subjective Date of Service: 05/03/23 Chief Complaint: STRONGER Subjective: Improving SWELLING OF LEGS. NO PAIN NO DYSPNEA GEN WEAK. HR STILL DROPS IN 40S TO 30S. WE ARE WAITING FOR PPM. DR. MILLS AND I TALKED ON THE WEEKEND AND HE AGREES. HE IS WORKING ON TRANSFER TO [facility] Review of Systems 10-point ROS is otherwise unremarkable Physical Examination - Vital Signs Temperature: 97.5 F Blood Pressure: 112/46 Pulse: 44 Respirations: 17 Pulse Ox (%): 96 - Physical Exam General: Oriented x3, Mild distress HEENT: Atraumatic, PERRLA, EOMI Neck: Supple, JVD not distended Respiratory: Clear to auscultation bilaterally, Normal air movement Cardiovascular: Regular rate/rhythm, Normal S1 S2 Gastrointestinal: Normal bowel sounds, No tenderness Musculoskeletal: No tenderness Integumentary: No rashes Neurological: Normal speech, Normal tone, Normal affect Lymphatics: No axilla or inguinal lymphadenopathy - Studies Medications List Reviewed: Yes Assessment And Plan - Current Problems (Diagnosis) (1) Acute on chronic diastolic heart failure Current Visit: Yes Status: Acute Plan: RAISE HYDRALAZINE BP HIGH HR LOW. CHF CONTROLLED WELL. USUAL SHE IS GOING INTO PRERENAL AZOTEMIA WITH SMALL DOSE OF DIURETIC WE WILL HAVE TO BACK OFF DOSE OF DIURETICS AND SO SOON SHE MAY GO BACK INTO CHF. THIS MAY CHANGE ONCE SHE HAS PACEMAKER. CONTINUE SMALL DOSE OF DIURETICS WITH ANY HIGHER DOSE SHE STARTS TO HAVE ACUTE ON CHORNIC RENAL FAILURE. (2) Sinus bradycardia Current Visit: Yes Status: Acute Plan: NOW SHE AGREES FOR PPM AND SHE IS FULL CODE ALSO. SHE WANTS REHAB BUT SHE IS WALKING ALREADY WITH WALKER. DR. MILLS IS WORKING ON PPM. PPM PLAN ABOVE. [employer] HAS REJECTED SNF TRANSFER. (3) General weakness Current Visit: Yes Status: Acute (4) CKD (chronic kidney disease) stage 3, GFR 30-59 ml/min Current Visit: Yes Status: Chronic Plan: DAILY LAB. I AM SURE HER CREAT WILL START GOING HIGHER CHECK PVR. CREAT STABLE. CREAT LOWER WITH REDUCTION OF LASIX. WILL FU DAILY LAB.
[2023-05-03] MEDS: HYDRALAZINE HCL 25 MG TABLET PO SCH ×3 (08:26→21:00)
[2023-05-03] MEDS: ursodioL 300 MG CAP PO SCH ×2 (08:27→21:39)
[2023-05-03] MEDS: POTASSIUM CL SA 10 MEQ TAB PO SCH (08:29)
[2023-05-03] MEDS: LIOTHYRONINE SOD 5 MCG TAB PO SCH (08:29)
[2023-05-03] MEDS: MONTELUKAST 10 MG TAB PO SCH (08:30)
[2023-05-03] MEDS: PANTOPRAZOLE 40MG TABLET PO SCH (08:30)
[2023-05-03] MEDS: FUROSEMIDE 40 MG TABLET PO SCH (08:32)
[2023-05-03] MEDS: MEMANTINE HCL 10 MG TABLET PO SCH ×2 (08:35→21:40)
[2023-05-03] MEDS: MAGNESIUM CITRATE AND OXIDE 250 MG PO SCH ×2 (08:35→21:41)
[2023-05-03] MEDS: METHENAMINE HIPPURATE 1 GM PO SCH ×2 (08:35→21:00)
[2023-05-03] MEDS: SPIRONOLACTONE 25 MG TABLET PO SCH (08:41)
[2023-05-03 08:51] VITALS: O2SAT 95
[2023-05-03] MEDS: PREGABALIN 150 MG CAP PO SCH ×2 (10:22→21:40)
--- NOTE | 2023-05-03 15:57 | RAD REPORT ---
EXAM DESCRIPTION: RAD - Chest Single View - 05/03/2023 3:50 pm CLINICAL HISTORY: COPD Chest pain. COMPARISON: Chest Single View dated 04/27/2023; Chest Single View dated 04/24/2023; Chest Pa And Lat ( 2 Views) dated 04/14/2023; Chest Single View dated 02/04/2023 FINDINGS: Portable technique limits examination quality. The lungs are emphysematous. Moderate left pleural effusion. Left axillary dissection clips. The hear t is moderately enlarged. Proximal right humeral prosthesis. IMPRESSION: Chronic left pleural effusion. COPD.
[2023-05-03] MEDS: ENOXAPARIN 30 MG/0.3 ML SQ SCH (17:00)
--- NOTE | 2023-05-03 17:52 | PN ---
Date of Progress Note: 05/03/2023 Subjective: The patient was admitted to the hospital with acute kidney injury secondary to cardioren al. The patient was diuresed very well. Lasix has been held in the last 48 hours. The patient is s till on room air. Physical Examination: Vital Signs: Blood pressure 104/46, pulse of 48, afebrile. The patient had good urine output of 110 0. As weight bryan, the patient lost 8 pounds from admission. Chest: Clear to auscultation. Heart: S1, S2. Regular. Systolic murmur. Abdomen: Soft, nontender. Extremity: Trace edema. Neurologic: Alert. No focality. Current Medications: The patient on Lovenox, losartan 100, hydralazine 50 t.i.d., spironolactone 25, Lyrica, Namenda, Tylenol, pantoprazole, Lasix 20, was started yesterday. Laboratory Data: Hemoglobin of 10. Sodium 131, potassium 5.1, bicarb 31, BUN 61, creatinine 1.6, ca lcium 8.5. Assessment And Plan: 1.Acute kidney injury secondary to cardiorenal, looked to me normal volume, responding to current di uresis dose. I am going to continue current Lasix and we will follow up. 2.Hypokalemia. Continue spironolactone. 3.Hyponatremia secondary to dilutional. Continue diuresis. 4.Congestive heart failure with exacerbation, currently normal volume. Continue current Lasix dose. 5.Deconditioning. Continue PT, OT. DESTINY/MODL Voice ID: [id number] Report ID: [id number]
[2023-05-03] MEDS: CRESTOR 5 MG PO SCH (21:42)
[2023-05-03] MEDS: ACETAMINOPHEN 500 MG TAB PO PRN (23:47)
[2023-05-04] MEDS: LEVOTHYROXINE SOD 0.112 MG TAB PO SCH (06:07)
[2023-05-04 08:42] VITALS: BP 125/53; TEMP 96.9
[2023-05-04] MEDS: HYDRALAZINE HCL 25 MG TABLET PO SCH (09:00)
[2023-05-04] MEDS: LOSARTAN POTASSIUM 50 MG TABLET PO SCH (09:00)
--- NOTE | 2023-05-04 09:18 | P.DS ---
Admission Date: 04/24/23 Discharge Date: 05/04/23 Disposition: [facility] Discharge Condition: FAIR Reason for Admission: STRONGER - Problems (1) Acute on chronic diastolic heart failure Current Visit: Yes Status: Acute (2) Sinus bradycardia Current Visit: Yes Status: Acute (3) General weakness Current Visit: Yes Status: Acute (4) CKD (chronic kidney disease) stage 3, GFR 30-59 ml/min Current Visit: Yes Status: Chronic Brief History of Present Illness: GRACIELA IS A COMPLICATED PATIENT WITH DIASTOLIC HEART FAILURE WHO DOES NOT TOLERATE DIURETICS FOR LONG SHE GOES INTO WORSE RENAL FAILURE WITH EVEN A SMALL DOSE OF DIURETIC. SHE ALSO HAS UNCONTROLLED BP AND IS ALREADY ON HYDRALAZINE, LOSARTAN AT A HIGH DOSE. AMLODIPINE DID NOT WORK SHE HAD SEVERE EDEMA AND B BLOCKERS GIVE HER SEVERE BRADYCARDIA THAT IS WHAT HAPPENED THIS TIME AND SHE GOT VERY WEAK. I STARTED HER ON LASIX DRIP SHE DOES NOT DO WELL WITH BOLUSES LONG RENAL FUNCTION IS CONCERNED. Hospital Course: GRACIELA COMES WITH DYSPNEA, WEAKNESS, FATIGUE LIKE SHE HAS DONE MANY TIMES. IT TOOK LASIX DRIP AND LATER CHANGE TO ORAL MEDS. ONCE AGAIN SHE HAD ACUTE ON CHRONIC RENAL FAILURE THAT IMPROVED WHEN WE REDUCED LASIX. SHE HAS A VERY THIN MARGIN BETWEEN CHF AND ACUTE RENAL FAILURE. HER HR STAYED LOW 30 WITH NO SS. SHE IS GOING TO HAVE PPM. SHE ALWAYS WANTS TO GO TO SNF BUT INSURANCE REJECTED TRANSFER. Vital Signs/Physical Exam: Temp Pulse Resp BP Pulse Ox 96.9 F 44 L 14 125/53 L 95 05/04/23 08:00 05/04/23 08:00 05/04/23 08:00 05/04/23 08:00 05/04/23 08:00 Laboratory Data at Discharge: WBC 4.60 thou/uL (4.3-10.9) 05/03/23 06:02 Hgb 10.0 g/dL (12.0-15.0) L 05/03/23 06:02 Hct 28.9 % (36.0-45.0) L 05/03/23 06:02 Plt Count 143 thou/uL (152-406) L 05/03/23 06:02 Sodium 131 mEq/L (136-145) L 05/03/23 06:02 Potassium 5.1 mEq/L (3.5-5.1) 05/03/23 06:02 BUN 61 mg/dL (7-18) H 05/03/23 06:02 Creatinine 1.64 mg/dL (0.55-1.02) H 05/03/23 06:02 Glucose 71 mg/dL (74-106) L 05/03/23 06:02 Phosphorus 4.3 mg/dL (2.5-4.9) 04/25/23 17:15 Phosphorus 4.4 mg/dL (2.5-4.9) 04/25/23 17:15 Magnesium 2.6 mg/dL (1.6-2.4) H 05/03/23 06:02 Total Bilirubin 0.3 mg/dL (0.2-1.0) 05/03/23 06:02 AST 13 U/L (15-37) L 05/03/23 06:02 ALT 18 U/L (13-56) 05/03/23 06:02 Alkaline Phosphatase 69 U/L (45-117) 05/03/23 06:02 Home Medications: Liothyronine Sodium [Cytomel] 5 mcg PO DAILY 01/01/21 ursodioL [Ursodiol] 300 mg PO BID 01/01/21 Levothyroxine [Synthroid*] 112 mcg PO [id number] 05/25/22 Rosuvastatin [Crestor*] 5 mg PO BEDTIME 05/25/22 Losartan Potassium 100 mg PO DAILY #90 tab 05/28/22 Potassium Chloride 20 meq PO DAILY 08/11/22 Amiodarone HCl [Cordarone*] 1 tab PO DAILY 12/30/22 Magnesium Citrate and Oxide [Magnesium] 1 cap PO BID 12/30/22 Memantine HCl 1 tab PO BID 12/30/22 Methenamine Hippurate 1 tab PO BID 12/30/22 Montelukast [Singulair*] 1 tab PO DAILY 12/30/22 Torsemide 10 mg PO DAILY #30 tab 02/11/23 Cranberry Concentrate + Vit C 30,000 mg PO BID 04/25/23 Gabapentin 2 cap PO TID 04/25/23 Gabapentin 100 mg PO TID 04/25/23 Kael-Plex 2 cap PO BEDTIME 04/25/23 Nebivolol HCl [Bystolic] 5 mg PO DAILY 04/25/23 Rabeprazole Sodium 20 mg PO DAILY 04/25/23 Turmeric Root Extract [Turmeric Curcumin] 1,500 mg PO BID 04/25/23 Urinary [place] 1 cap PO BID 04/25/23 hydroCHLOROthiazide [Hydrochlorothiazide] 25 mg PO DAILY 04/25/23 Followup: Benoit Solis [Primary Care Provider] -
[2023-05-04] MEDS: ursodioL 300 MG CAP PO SCH (09:34)
[2023-05-04] MEDS: MEMANTINE HCL 10 MG TABLET PO SCH (09:34)
[2023-05-04] MEDS: PANTOPRAZOLE 40MG TABLET PO SCH (09:34)
[2023-05-04] MEDS: POTASSIUM CL SA 10 MEQ TAB PO SCH (09:35)
[2023-05-04] MEDS: FUROSEMIDE 40 MG TABLET PO SCH (09:35)
[2023-05-04] MEDS: PREGABALIN 150 MG CAP PO SCH (09:35)
[2023-05-04] MEDS: SPIRONOLACTONE 25 MG TABLET PO SCH (09:36)
[2023-05-04] MEDS: METHENAMINE HIPPURATE 1 GM PO SCH (09:37)
[2023-05-04] MEDS: MAGNESIUM CITRATE AND OXIDE 250 MG PO SCH (09:37)
[2023-05-04] MEDS: MONTELUKAST 10 MG TAB PO SCH (09:52)
[2023-05-04] MEDS: LIOTHYRONINE SOD 5 MCG TAB PO SCH (09:52)
--- NOTE | 2023-05-04 19:52 | PN ---
Date of Progress Note: 05/04/2023 Subjective: The patient was admitted with cardiac arrhythmia. The patient is scheduled to have ICD placement and waiting for transfer. The patient is feeling well. The patient had acute kidney injur y secondary to cardiorenal, prerenal, resolved. Physical Examination: General: When I saw the patient, the patient was sitting in the chair. Vital signs: Blood pressure 125/53, pulse of 47, afebrile. Chest: Clear to auscultation. Heart: S1, S2 regular. Abdomen: Soft, nontender. Extremities: No edema. Neurologic: Alert. No focality. Laboratory Data: Hemoglobin of 10. Sodium 131, potassium 5.1, bicarb 31, BUN 61, creatinine 1.6, GF R of 31, calcium 8.5. Current Medications: The patient on include: 1.Lovenox. 2.Losartan 100. 3.Hydralazine 50 t.i.d. 4.Spironolactone. 5.Namenda. 6.Pantoprazole. 7.Lasix 20 mg daily. Laboratory Data: Sodium 131, potassium 5.1, bicarb 31, BUN 61, creatinine 1.6. Assessment And Plan: 1.Acute kidney injury secondary to cardiorenal, back to normal volume. We will continue current diu resis dose. 2.Hypokalemia. We will supplement. Continue spironolactone. 3.Hyponatremia. Dilutional. Continue diuresis. 4.Congestive heart failure with exacerbation. We will optimize the fluid status. Continue Lasix. 5.Cardiac arrhythmia. Plan for a pacemaker. We will follow up with Cardiology. IVONE Voice ID: [id number] Report ID: [id number]
== END 2023-05-04 12:09 | disposition short-term general hospital (02) | DRG 291 ==
LOC: ER 18:59 → ERHOLD 23:04 → 3RD-ICU 23:31 → 2ND 04-27 23:13
PROVIDERS: ADMIT Internal Medicine; ATTEND Internal Medicine
DX: I13.0 Hypertensive heart and chronic kidney disease with heart failure and stage 1 through stage 4 chronic kidney disease, or unspecified chronic kidney disease (principal); I50.33 Acute on chronic diastolic (congestive) heart failure; J96.01 Acute respiratory failure with hypoxia; N17.9 Acute kidney failure, unspecified; E87.1 Hypo-osmolality and hyponatremia; N18.30 Chronic kidney disease, stage 3 unspecified; E03.9 Hypothyroidism, unspecified; M10.9 Gout, unspecified; M19.90 Unspecified osteoarthritis, unspecified site; E78.5 Hyperlipidemia, unspecified; E87.6 Hypokalemia; N25.0 Renal osteodystrophy; I89.0 Lymphedema, not elsewhere classified; I48.91 Unspecified atrial fibrillation; K21.9 Gastro-esophageal reflux disease without esophagitis; T50.905A Adverse effect of unspecified drugs, medicaments and biological substances, initial encounter; R00.1 Bradycardia, unspecified; Z60.2 Problems related to living alone; Z90.49 Acquired absence of other specified parts of digestive tract; Z79.01 Long term (current) use of anticoagulants; Z79.02 Long term (current) use of antithrombotics/antiplatelets; Z79.899 Other long term (current) drug therapy; Z96.653 Presence of artificial knee joint, bilateral; Z96.611 Presence of right artificial shoulder joint
CPT/HCPCS: 36415; 71045; 71250; 74176; 76770; 76856; 76857; 80053; 80069; 81001; 82570; 83605; 83735; 84100; 84156; 84443; 85025; 87040; 87086; 87088; 93005; 93970; 97116; 97161; 97530; 99285; J1650; J1940